=== PATIENT | female | born 1955 | race Caucasian/White ===

== ENCOUNTER 2016-05-30 07:34 | Inpatient (IN) | payer BC, MEDICARE ==
[~2016-05-30] VITALS: Ht 160 cm; Wt 60.9 kg
[~2016-05-30 07:34] MED LIST: ALBU2SYR PO; ATEN25TA PO; CLOP75TA27 PO; FAMO20TA5 PO; MELO-156 PO; OMEP20TA63 PO; OXYC10TA PO; PRAM0.255 PO; TIOT18CA IH
[2016-05-30] MEDS ORDERED: methylPREDNISolone SOD SUCC PF 125 MG/2 ML VIAL. IV ONE (07:45)
--- NOTE | 2016-05-30 07:57 | EKG ---
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
--- NOTE | 2016-05-30 08:08 | ED.ADGEN ---
Adult General Chief Complaint Chief Complaint: SHORTNESS OF BREATH HPI HPI Patient is a 61 year old woman, history of COPD, on 2 after 3 L of oxygen nasal cannula baseline, CAD, hypertension, who presents to the emergency department via EMS with her complaint of shortness of breath that began around 6 this morning. Patient had been complaining of symptoms of a "chest cold" yesterday, but experienced worsening of her shortness of breath this morning, EMS was contacted, was found to be hypoxic at 89% upon arrival of EMS, with 6 L nasal cannula, with increased work of breathing, patient placed on CPAP en route to the ED, upon arrival to the ED, patient transitioned to BiPAP without issue. Patient denies any chest pain, has had cough as stated, productive of yellow sputum, denies any fevers or chills, any weakness emesis or tingling, any injuries or medication changes. No recent travel or surgery, history of DVT or PE, no swelling of the extremities. Review of Systems Review of Systems Constitutional: Denies fever or chills. [] Eyes: Denies change in visual acuity. [] HENT: Denies nasal congestion or sore throat. [] Respiratory: Denies cough, complaining of worsening shortness of breath since about 6:00 this morning. Cardiovascular: Denies chest pain or edema. [] GI: Denies abdominal pain, nausea, vomiting, bloody stools or diarrhea. [] : Denies dysuria. [] Musculoskeletal: Denies back pain or joint pain. [] Integument: Denies rash. [] Neurologic: Denies headache, focal weakness or sensory changes. [] Endocrine: Denies polyuria or polydipsia. [] Lymphatic: Denies swollen glands. [] Psychiatric: Denies depression or anxiety. [] Current Medications Current Medications Current Medications Medications (Trade) Dose Ordered Sig/Lucia Start Time Stop Time Status Last Admin Dose Admin Albuterol/ Ipratropium (Duoneb) 3 ml 1X ONCE 05/30/16 08:30 05/30/16 08:31 DC 05/30/16 08:44 3 ML Isosorbide Mononitrate (Imdur) 60 mg 1X ONCE 05/30/16 08:30 05/30/16 08:31 DC 05/30/16 09:02 60 MG Methylprednisolone Sodium Succinate (Solu-Medrol 125mg Vial) 125 mg 1X ONCE 2/23/17 07:45 05/30/16 07:52 DC 05/30/16 08:31 125 MG Allergies Allergies Allergies Coded Allergies Type Severity Reaction Last Updated Verified bupropion Allergy Intermediate hives 05/30/16 Yes Physical Exam Physical Exam Constitutional: Well developed, well nourished, moderate respiratory distress, ill in appearance. [] HENT: Normocephalic, atraumatic, bilateral external ears normal, oropharynx moist, no oral exudates, nose normal. [] Eyes: PERRLA, EOMI, conjunctiva normal, no discharge. [] Neck: Normal range of motion, no tenderness, supple, no stridor. [] Cardiovascular: Tachycardic, S1, S2, no rubs or gallops. [] Lungs & Thorax: Patient with diminished breath sounds at bases bilaterally, mild scattered wheezing, moderate respiratory distress, and transitioned to BiPAP. Abdomen: Bowel sounds normal, soft, no tenderness, no rebound, rigidity, no guarding, no masses, no pulsatile masses. [] Skin: Warm, dry, no erythema, no rash. [] Back: No tenderness, no CVA tenderness. [] Extremities: No tenderness, no cyanosis, no clubbing, ROM intact, no edema. Negative Homans sign. [] Neurologic: Alert and oriented X 3, normal motor function, normal sensory function, no focal deficits noted. [] Psychologic: Affect normal, judgement normal, mood normal. [] Current Patient Data Vital Signs Vital Signs Date Time Temp Pulse Resp B/P Pulse Ox O2 Delivery O2 Flow Rate FiO2 05/30/16 09:02 126 110/61 05/30/16 08:45 93 BiPAP/CPAP 05/30/16 08:30 21 05/30/16 07:40 96.8 96.8 Lab Values Laboratory Tests Test 05/30/16 07:45 05/30/16 08:19 White Blood Count 15.2x10^3/uL (4.0-11.0) H Red Blood Count 4.37x10^6/uL (3.50-5.40) Hemoglobin 11.7g/dL (12.0-15.5) L Hematocrit 37.1% (36.0-47.0) Mean Corpuscular Volume 85fL (79-100) Mean Corpuscular Hemoglobin 27pg (25-35) Mean Corpuscular Hemoglobin Concent 32g/dL (31-37) Red Cell Distribution Width 17.6% (11.5-14.5) H Platelet Count 371x10^3/uL (140-400) Neutrophils (%) (Auto) 87% (31-73) H Lymphocytes (%) (Auto) 10% (24-48) L Monocytes (%) (Auto) 3% (0-9) Eosinophils (%) (Auto) 0% (0-3) Basophils (%) (Auto) 0% (0-3) Neutrophils # (Auto) 13.1x10^3uL (1.8-7.7) H Lymphocytes # (Auto) 1.5x10^3/uL (1.0-4.8) Monocytes # (Auto) 0.5x10^3/uL (0.0-1.1) Eosinophils # (Auto) 0.0x10^3/uL (0.0-0.7) Basophils # (Auto) 0.0x10^3/uL (0.0-0.2) Platelet Estimate Pending Sodium Level 146mmol/L (136-145) H Potassium Level 4.6mmol/L (3.5-5.1) Chloride Level 104mmol/L (98-107) Carbon Dioxide Level 39mmol/L (21-32) H Anion Gap 3 (6-14) L Blood Urea Nitrogen 23mg/dL (7-20) H Creatinine 0.7mg/dL (0.6-1.0) Estimated GFR (Cockcroft-Gault) 85.4 BUN/Creatinine Ratio 33 (6-20) H Glucose Level 140mg/dL (70-99) H Lactic Acid Level 1.0mmol/L (0.4-2.0) Calcium Level 9.3mg/dL (8.5-10.1) Total Bilirubin 0.2mg/dL (0.2-1.0) Aspartate Amino Transferase (AST) 63U/L (15-37) H Alanine Aminotransferase (ALT) 74U/L (14-59) H Alkaline Phosphatase 74U/L (46-116) Troponin I Quantitative 0.097ng/mL (0.000-0.055) MS-Qef-G-Type Natriuretic Peptide 146pg/mL (0-124) H Total Protein 6.3g/dL (6.4-8.2) L Albumin 3.3g/dL (3.4-5.0) L Albumin/Globulin Ratio 1.1 (1.0-1.7) O2 Saturation 86% (92-99) L Arterial Blood pH 7.23 (7.35-7.45) L Arterial Blood pCO2 at Patient Temp 85mmHg (35-46) *H Arterial Blood pO2 at Patient Temp 57mmHg (65-108) L Arterial Blood HCO3 35mmol/L (21-28) H Arterial Blood Base Excess 5mmol/L (-3-3) H FiO2 30 Laboratory Tests 05/30/16 07:45 Laboratory Tests 05/30/16 07:45 EKG EKG EC: Sinus tachycardia, heart rate 137 bpm, QTC of 433, QRS of 76, patient with significant baseline artifact, after multiple attempts cocaine hCG , secondary to respiratory motion, limiting evaluation, however it is an abnormal ECG but no evidence of ST elevations or depressions consistent with an STEMI-type pattern identified. As interpreted by me. [] Radiology/Procedures Radiology/Procedures [facility] [address] [place], [place] [id number] IMAGING REPORT Signed PATIENT: SRIKANTH CURIEL ACCOUNT: [id number] : 1955 LOCATION: ER AGE: 61 SEX: F EXAM STATUS: REG ER ORD. PHYSICIAN: JUVENAL ANNE DO REASON: SOA/hypoxia PROCEDURE: PORTABLE CHEST 1V EXAM: Chest one view. HISTORY: Shortness of breath, hypoxia. COMPARISON: None. FINDINGS: A frontal view of the chest is obtained. Hyperinflation is consistent with chronic obstructive pulmonary disease. There are mild airspace opacities in the left greater than right bases. Blunting of the costophrenic angles indicate scarring or small pleural effusions. There is no pneumothorax. The heart is not enlarged. A coronary stent is noted. IMPRESSION: 1. Chronic obstructive pulmonary disease with superimposed mild bibasilar atypical pneumonia versus mild pulmonary edema. DICTATED and SIGNED BY: ANIKET BAUMANN MD DATE: 05/30/16 0933 CC: JUVENAL ANNE DO; UNKNOWN PCP NAME ~ Course & Med Decision Making Course & Med Decision Making Pertinent Labs and Imaging studies reviewed. (See chart for details) Patient transitioned to BiPAP upon arrival to the emergency department, initial settings of 22/6 at 30% FiO2, backup rate of 20. Tolerating the settings while in the emergency department, oxygen saturation is in the upper 90s, work of breathing is slowly improving. Patient is able to answer all questions appropriately, patient's is now bedside and confirms that her symptoms began around 6:00 in the morning. He states the patient was started on a Z-Tyree yesterday, is receive 1 dose medication, after she began experiencing some yellow sputum with her cough that began over the last several days. Patient afebrile emergency department, denying fevers at home as stated. Chest x-ray reveals mild bibasilar infiltrates versus mild pulmonary edema, patient with leukocytosis of 15.2. Patient initiated on community-acquired and erratic coverage, blood cultures are pending, clinically patient is significantly improved, states she is feeling much better, however initial blood gas reveals persistent acidosis with a pH of 7.23, PCO2 84, O2 of 56, and bicarbonate of 34 with a base excess of 4. Patient remains tachycardic, although it is significantly improved, heart rate of 110s to 1 teens, blood pressure low 100s over 50s and 60s. Patient was noted to have a mildly elevated troponin, which I believe is due to patient's hypoxia and demand, will follow serial enzymes.BiPAP settings adjusted, oxygen concentration increased. I did discuss findings as above with Dr. Valles of pulmonary critical care, who requested the patient be admitted to the ICU for close monitoring, patient is also receiving duo nebs and steroids. Findings as above discussed with Dr. Gardiner of internal medicine, patient accepted to his service as a full admission to the ICU, consultation to pulmonary medical care and cardiology, with bridge orders entered per his request. Patient remained clinically improved, tolerating BiPAP without issue, at time of transfer to the ICU. Dragon Disclaimer Dragon Disclaimer This electronic medical record was generated, in whole or in part, using a voice recognition dictation system. Critical Care Time Critical care time was 20 minutes exclusive of procedures. Departure Impression: Primary Impression: Respiratory failure Disposition: ADMITTED INPATIENT Admitting Physician: Óscar Gardiner Condition: IMPROVED Problem Qualifiers Primary Impression: Respiratory failure Chronicity: acute on chronic Respiratory failure complication: hypoxia and hypercapnia Qualified Code: J96.21 - Acute and chronic respiratory failure with hypoxia JUVENAL ANNE DO May 30, 2016 08:08
[2016-05-30 08:22] LABS: CALCIUM 9.3 mg/dL (8.5-10.1); CREATININE 0.7 mg/dL (0.6-1.0); GFR 85.4; POTASSIUM 4.6 mmol/L (3.5-5.1)
[2016-05-30] MEDS ORDERED: ISOSORBIDE MONONITRATE ER 60 MG TAB.ER.24H PO ONE (08:30)
[2016-05-30] MEDS ORDERED: IPRATRPIUM/ALBUTEROL 0.5/2.5MG 3 ML NEBU. NEB ONE (08:30)
[2016-05-30 08:35] LABS: ALBUMIN 3.3 g/dL (3.4-5.0); ALBUMIN/GLOBULIN RATIO 1.1 (1.0-1.7); TOTAL BILIRUBIN 0.2 mg/dL (0.2-1.0); TOTAL PROTEIN 6.3 g/dL (6.4-8.2)
[2016-05-30 08:37] LABS: BASO % 0 % (0-3); EOS % 0 % (0-3); HEMATOCRIT 37.1 % (36.0-47.0); HEMOGLOBIN 11.7 g/dL (12.0-15.5); LYMPH # 1.5 x10^3/uL (1.0-4.8); LYMPH % 10 % (24-48); MEAN CORPUSCULAR HEMOGLOBIN 27 pg (25-35); MEAN CORPUSCULAR HGB CONC 32 g/dL (31-37); MEAN CORPUSCULAR VOLUME 85 fL (79-100); MONO % 3 % (0-9); NEUT % 87 % (31-73); PLATELET COUNT 371 x10^3/uL (140-400); RED BLOOD COUNT 4.37 x10^6/uL (3.50-5.40); RED CELL DISTRIBUTION WIDTH 17.6 % (11.5-14.5); WHITE BLOOD COUNT 15.2 x10^3/uL (4.0-11.0)
[2016-05-30 09:10] LABS: HCO3 ABG 35 mmol/L (21-28); PH ABG 7.23 (7.35-7.45); PO2 ABG 57 mmHg (65-108); SAT O2 ABG 86 % (92-99)
[2016-05-30] MEDS ORDERED: AZITHRMYCN 500MG IVPB FOR OMNI 250 ML IV ONE (09:15)
[2016-05-30] MEDS ORDERED: CEFTRIAXONE 1GM IVPB FOR OMNI 50 ML IV ONE (09:15)
[2016-05-30 09:19] LABS: FIO2 ABG 30; PCO2 ABG 85 mmHg (35-46)
--- NOTE | 2016-05-30 09:37 | RAD ---
EXAM: Chest one view. HISTORY: Shortness of breath, hypoxia. COMPARISON: None. FINDINGS: A frontal view of the chest is obtained. Hyperinflation is consistent with chronic obstructive pulmonary disease. There are mild airspace opacities in the left greater than right bases. Blunting of the costophrenic angles indicate scarring or small pleural effusions. There is no pneumothorax. The heart is not enlarged. A coronary stent is noted. IMPRESSION: 1. Chronic obstructive pulmonary disease with superimposed mild bibasilar atypical pneumonia versus mild pulmonary edema.
[2016-05-30] MEDS: IV NORMAL SALINE 1000ML BAG 1,000 ML IV SCH ×2 (09:48→19:48)
[2016-05-30] MEDS ORDERED: ACETAMINOPHEN 325 MG TABLET. PO PRN (10:00)
[2016-05-30] MEDS ORDERED: ONDANSETRON PF 4 MG/2 ML VIAL. IV PRN (10:00)
--- NOTE | 2016-05-30 10:58 | PDOC ---
Provider Note Provider Note dictated PRERNA CALHOUN MD May 30, 2016 10:58
[2016-05-30 11:51] LABS: OBC FLU VALID
--- NOTE | 2016-05-30 11:59 | CONS ---
DATE OF CONSULTATION: ATTENDING PHYSICIAN: Dr. Gardiner. REASON FOR CONSULTATION: Respiratory failure. HISTORY OF PRESENT ILLNESS: The patient is a 61-year-old female with history of COPD, suspect severe. She has chronic respiratory failure and she is on home oxygen between 2-3 liters. She said she had flu-like symptoms about a week ago and had a chest cold. She said she slept last week. She was brought into the hospital with increasing shortness of breath. She has a persistent mild cough. She was treated as an outpatient with Z-DIANE. In the ER, she was noted to have a saturation of 89% on arrival and having increased work of breathing and was tachycardic. She was placed on CPAP en route and was placed on BiPAP in the ER, she uses Trilogy ventilator at night time. I have reviewed the patient's chest x-ray. There appears to be faint interstitial bibasilar infiltrates. There may be some mild interstitial infiltrates in the right lung as well. The patient is tolerating the BiPAP well so far. Her initial ABG showed a pH of 7.23, pCO2 of 85 and a pO2 of 57 on 35% FiO2. No history of deep venous thrombosis or pulmonary embolism. PAST MEDICAL HISTORY: History of suspected severe COPD, history of chronic respiratory failure on home Trilogy at night and 2-3 liters during the day. PAST SURGICAL HISTORY: No recent surgery. ALLERGIES: ____. MEDICATIONS: Reviewed, as listed in the MRAD including antibiotics, azithromycin, Rocephin and DuoNeb. REVIEW OF SYSTEMS: Twelve-point system obtained. Pertinent positives discussed in my history of present illness, otherwise noncontributory. All systems that were negative were reviewed as well. SOCIAL HISTORY: Smoker for 45 years and has not completely quit cigarettes. FAMILY HISTORY: Noncontributory. PHYSICAL EXAMINATION: VITAL SIGNS: Blood pressure 118/61, afebrile, pulse ox 97% on current FiO2. HEENT: Sclerae nonicteric. NECK: Supple. LUNGS: With poor air entry bilaterally. No wheezing. CARDIOVASCULAR: Regular rate and rhythm. ABDOMEN: Soft. EXTREMITIES: No pitting edema. LABORATORY DATA: Reviewed. ABGs as discussed in my history of present illness. BUN 23, creatinine 0.7. Troponin 0.097. Albumin 3.3. White cell count 15.2, hemoglobin 11.7, platelets are 371. IMPRESSION: 1. Jekvm-dp-gmipiri hypercapnic and hypoxic respiratory failure secondary to acute exacerbation of chronic obstructive pulmonary disease and bibasilar pneumonia. 2. Abnormal chest x-ray with bibasilar interstitial infiltrates. Clinically, I suspect pneumonia and less likely congestive heart failure. Continue with present empiric antibiotics. Her proBNP was only 146, will benefit from a noncontrast CT chest. 3. Underlying severe chronic obstructive pulmonary disease, which is oxygen dependent and uses Trilogy ventilator at nighttime. 4. Ongoing tobacco consumption. RECOMMENDATIONS: 1. We will continue with present BiPAP and follow ABGs to make sure respiratory acidosis is resolved. 2. She can use Trilogy ventilator at nighttime. 3. Continue with DuoNeb. 4. Continue with IV Solu-Medrol. 5. Continue with present empiric antibiotics. 6. Noncontrast CT chest to better assess for lung infiltrates. 7. Deep venous thrombosis prophylaxis. 8. Stress ulcer prophylaxis. 9. Discussed with ER physician, RN and RT. We will follow along with you. Critical care time 39 minutes. PRERNA CALHOUN MD DR: MINGO/sarbjit JOB#: [id number] / [id number] TONIA
[2016-05-30] MEDS ORDERED: IPRATRPIUM/ALBUTEROL 0.5/2.5MG 3 ML NEBU. NEB SCH (12:00)
--- NOTE | 2016-05-30 12:10 | EKG ---
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
--- NOTE | 2016-05-30 12:23 | PDOC2 ---
CARDIAC CONSULT DATE OF CONSULT Date of Consult DATE: 05/30/16 TIME: 12:13 REASON FOR CONSULT Reason for Consult: elevated troponin REFERRING PHYSICIAN Referring Physician: Dr. Garcia SOURCE Source: Chart review, Patient HISTORY OF PRESENT ILLNESS HISTORY OF PRESENT ILLNESS This is a 61 yo female who presented with complaints of shortness of breath. Patient reports she woke up this morning around 4 am with shortness of breath. Has had nasal congestion and chest congestion with green sputum. H/o COPD with chronic oxygen therapy; has been requiring more oxygen therapy over the last month. Denies any chest pain, palpitations, dizziness, diaphoresis, n/v, or recent illness/fevers. Report compliance with medications. Additional h/o CAD with stents x5 at [facility]. 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 No recent cardiac workup. PAST MEDICAL HISTORY Cardiovascular: CAD ( s/p PCI/stent placement ), HTN, [place], Hyperlipidemia Pulmonary: COPD CENTRAL NERVOUS SYSTEM: CVA GI: Other (Barretts esophagus ) Heme/Onc: No pertinent hx Hepatobiliary: No pertinent hx Psych: No pertinent hx Musculoskeletal: Osteoarthritis Rheumatologic: No pertinent hx Infectious disease: No pertinent hx ENT: No pertinent hx Renal/: No pertinent hx Endocrine: No pertinent hx Dermatology: No pertinent hx PAST SURGICAL HISTORY Past Surgical History: Other (see PMH) FAMILY HISTORY Family History: Coronary Artery Disease, Heart Disease SOCIAL HISTORY Smoke: <1 pack per day ALCOHOL: none Drugs: None Lives: with Family CURRENT MEDICATIONS CURRENT MEDICATIONS Current Medications Medications (Trade) Dose Ordered Sig/Lucia Route PRN Reason Start Time Stop Time Status Last Admin Dose Admin Methylprednisolone Sodium Succinate (Solu-Medrol 125mg Vial) 125 mg 1X ONCE IV 05/30/16 07:45 05/30/16 07:52 DC 05/30/16 08:31 Isosorbide Mononitrate (Imdur) 60 mg 1X ONCE PO 05/30/16 08:30 05/30/16 08:31 DC 05/30/16 09:02 Albuterol/ Ipratropium 3 ml 3 ml 1X ONCE NEB 05/30/16 08:30 05/30/16 08:31 DC 05/30/16 08:44 Ceftriaxone Sodium (Rocephin 1gm Ivpb For Omni) 50 ml @ 100 mls/hr 1X ONCE IV 05/30/16 09:15 05/30/16 09:44 DC 05/30/16 10:18 Albuterol/ Ipratropium (Duoneb) 3 ml RTQID NEB 05/30/16 12:00 05/31/16 11:59 05/30/16 10:50 ALLERGIES ALLERGIES: Coded Allergies: bupropion (Verified Allergy, Intermediate, hives, 05/30/16) ROS Review of System 14 point ROS conducted with pertinent positives noted above in HPI PHYSICAL EXAM General: Alert, Oriented X3, Cooperative, mild distress Lungs: Other (diminished throughout, on BiPAP ) Heart: Normal S1, Normal S2, Other (heart tones difficult to appreciate. tele ST ) Abdomen: Soft, No tenderness Extremities: No edema, Normal pulses Skin: No significant lesion Neuro: Normal speech, Sensation intact Psych/Mental Status: Mental status NL, Mood NL MUSCULOSKELETAL: Osteoarthritic changes both hands VITALS VITALS Vital Signs Date Time Temp Pulse Resp B/P Pulse Ox O2 Delivery O2 Flow Rate FiO2 05/30/16 10:42 97 BiPAP/CPAP 05/30/16 10:26 112 20 118/61 05/30/16 07:40 96.8 96.8 LABS Lab: Laboratory Tests Test 05/30/16 07:45 05/30/16 08:19 05/30/16 09:55 05/30/16 11:00 White Blood Count 15.2x10^3/uL (4.0-11.0) Red Blood Count 4.37x10^6/uL (3.50-5.40) Hemoglobin 11.7g/dL (12.0-15.5) Hematocrit 37.1% (36.0-47.0) Mean Corpuscular Volume 85fL (79-100) Mean Corpuscular Hemoglobin 27pg (25-35) Mean Corpuscular Hemoglobin Concent 32g/dL (31-37) Red Cell Distribution Width 17.6% (11.5-14.5) Platelet Count 371x10^3/uL (140-400) Neutrophils (%) (Auto) 87% (31-73) Lymphocytes (%) (Auto) 10% (24-48) Monocytes (%) (Auto) 3% (0-9) Eosinophils (%) (Auto) 0% (0-3) Basophils (%) (Auto) 0% (0-3) Neutrophils # (Auto) 13.1x10^3uL (1.8-7.7) Lymphocytes # (Auto) 1.5x10^3/uL (1.0-4.8) Monocytes # (Auto) 0.5x10^3/uL (0.0-1.1) Eosinophils # (Auto) 0.0x10^3/uL (0.0-0.7) Basophils # (Auto) 0.0x10^3/uL (0.0-0.2) Sodium Level 146mmol/L (136-145) Potassium Level 4.6mmol/L (3.5-5.1) Chloride Level 104mmol/L (98-107) Carbon Dioxide Level 39mmol/L (21-32) Anion Gap 3 (6-14) Blood Urea Nitrogen 23mg/dL (7-20) Creatinine 0.7mg/dL (0.6-1.0) Estimated GFR (Cockcroft-Gault) 85.4 BUN/Creatinine Ratio 33 (6-20) Glucose Level 140mg/dL (70-99) Lactic Acid Level 1.0mmol/L (0.4-2.0) 1.1mmol/L (0.4-2.0) Calcium Level 9.3mg/dL (8.5-10.1) Total Bilirubin 0.2mg/dL (0.2-1.0) Aspartate Amino Transf (AST/SGOT) 63U/L (15-37) Alanine Aminotransferase (ALT/SGPT) 74U/L (14-59) Alkaline Phosphatase 74U/L (46-116) Troponin I Quantitative 0.097ng/mL (0.000-0.055) ZH-Kbo-U-Type Natriuretic Peptide 146pg/mL (0-124) Total Protein 6.3g/dL (6.4-8.2) Albumin 3.3g/dL (3.4-5.0) Albumin/Globulin Ratio 1.1 (1.0-1.7) O2 Saturation 86% (92-99) Arterial Blood pH 7.23 (7.35-7.45) Arterial Blood pCO2 at Patient Temp 85mmHg (35-46) Arterial Blood pO2 at Patient Temp 57mmHg (65-108) Arterial Blood HCO3 35mmol/L (21-28) Arterial Blood Base Excess 5mmol/L (-3-3) FiO2 30 Influenza Type A Antigen Negative (NEGATIVE) Influenza Type B Antigen Negative (NEGATIVE) ASSESSMENT/PLAN ASSESSMENT/PLAN 1. Mild troponin elevation initial trop 0.097; continue with series. likely demand ischemia in the setting of acute infection and tachycardia. ASA. Check lipids obtain echo to r/o WMA 2. Acute respiratory failure with AE COPD and possible pneumonia on BiPAP per pulm 3. CAD remote PCI/stenting at [facility] continue ASA, Plavix, and BB will attempt to obtain cardiac records 4. HTN controlled. 5. HLP check lipids statin therapy if indicated 5. Leukocytosis with possible PNA IV antibiotic therapy initiated Problems: TIFFANY CARPIO APRN May 30, 2016 12:23
[2016-05-30 12:51] LABS: HCO3 ABG 31 mmol/L (21-28); PCO2 ABG 57 mmHg (35-46); PH ABG 7.35 (7.35-7.45); PO2 ABG 66 mmHg (65-108); SAT O2 ABG 93 % (92-99)
[2016-05-30 12:53] LABS: PLT ESTIMATE ADEQUATE (ADEQUATE)
[2016-05-30 12:54] LABS: ANISOCYTOSIS SLIGHT; STOMATOCYTES OCC
[2016-05-30 12:55] LABS: FIO2 ABG 30%
[2016-05-30 16:00] VITALS: BP 168/74
[2016-05-30] MEDS ORDERED: MULT1CAP15 PO (16:02)
[2016-05-30] MEDS ORDERED: ASPI-482 PO (16:02)
[2016-05-30] MEDS ORDERED: FLUT1DIS3 IH (16:02)
[2016-05-30] MEDS ORDERED: FOLI1TAB16 PO (16:02)
[2016-05-30] MEDS ORDERED: OMEG300C PO (16:02)
[2016-05-30] MEDS ORDERED: LACT1CAP8 PO (16:02)
[2016-05-30] MEDS ORDERED: CRESTOR40 MG PO (16:02)
[2016-05-30] MEDS ORDERED: CALC500T50 PO (16:02)
[2016-05-30] MEDS ORDERED: ISOS20TA2 PO (16:02)
[2016-05-30] MEDS ORDERED: MIRA25TA PO (16:02)
--- NOTE | 2016-05-30 16:11 | CARD ---
APPROVED REPORT EXAM: Two-dimensional and M-mode echocardiogram with Doppler and color Doppler. Other Information Quality : Technically Limited Rhythm : NSRTechnically limited study due to COPD. INDICATION Elevated troponin level 2D DIMENSIONS IVSd0.8 (0.7-1.1cm)Aortic Root(2D)2.8 (2.0-3.7cm) LVDd3.3 (3.9-5.9cm)LVOT Diameter2.2 (1.8-2.4cm) PWd0.8 (0.7-1.1cm)LVDs2.0 (2.5-4.0cm) SV31.7 mlLVEF(%)45.7 (>50%) Aortic Valve AoV Peak Filiberto.106.9cm/sAoV VTI16.1cm AO Peak GR.4.6mmHgLVOT VTI 11.26cm AO Mean GR.3mmHgAVA (VTI)1.80cm2 Mitral Valve MV E Qngbxdyv28.3cm/sMV E Peak Gr.0mmHg MV DECEL [id number] A Wghevtwu31.8cm/s MV E Mean Gr.1mmHgMV UTD20fu E/A Ratio0.8 Tricuspid Valve TR P. [id number]/sRAP [id number] TR Peak Gr.35afLjZLRC30unPf LEFT VENTRICLE The left ventricle is normal size. There is normal left ventricular wall thickness. Left ventricle sy stolic function is low normal. The Ejection Fraction is 45-50%. Proximal inferior septal hypokinesis, otherwise, mild global hypokinesis. Tissue Doppler imaging reveals mild left ventricular diastolic d ysfunction. RIGHT VENTRICLE The right ventricle is normal size. The right ventricular systolic function is normal. ATRIA The left atrium size is normal. The right atrium size is normal. The interatrial septum is intact wit h no evidence for an atrial septal defect or patent foramen ovale as noted on 2-D or Doppler imaging. AORTIC VALVE The aortic valve is normal in structure and function. The aortic valve is trileaflet. Doppler and Col or Flow revealed no significant aortic regurgitation. There is no significant aortic valvular stenosi s. MITRAL VALVE The mitral valve is normal in structure and function. There is no mitral valve stenosis. Doppler and Color Flow revealed no mitral valve regurgitation noted. TRICUSPID VALVE The tricuspid valve is not well visualized. Doppler and Color Flow revealed trace tricuspid regurgita tion. The PA pressure was estimated at 22 mmHg. There is no tricuspid valve stenosis. PULMONIC VALVE The pulmonic valve is not well visualized. Doppler and Color Flow revealed no pulmonic valvular regur gitation. There is no pulmonic valvular stenosis. GREAT VESSELS The aortic root is normal in size. Pulmonary veins not recorded. The IVC is normal in size and collap ses >50% with inspiration. PERICARDIAL EFFUSION There is no evidence of significant pericardial effusion. Critical Notification Critical Value: No <Conclusion> Left ventricle systolic function is low normal. The Ejection Fraction is 45-50%. Proximal inferior septal hypokinesis, otherwise, mild global hypokinesis. No significant valvular disease.
--- NOTE | 2016-05-30 16:22 | PDOC1 ---
History and Physical Past Medical History Cardiovascular: CAD ( s/p PCI/stent placement ), HTN, [place], Hyperlipidemia Pulmonary: COPD CENTRAL NERVOUS SYSTEM: CVA GI: Other (Barretts esophagus ) Heme/Onc: No pertinent hx Hepatobiliary: No pertinent hx Psych: No pertinent hx Rheumatologic: No pertinent hx Infectious disease: No pertinent hx ENT: No pertinent hx Renal/: No pertinent hx Endocrine: No pertinent hx Dermatology: No pertinent hx Past Surgical History Past Surgical History: Other (see PMH) Family History Family History: Coronary Artery Disease, Heart Disease Social History Smoke: <1 pack per day ALCOHOL: none Drugs: None Current Problem List Problem List Problems Medical Problems: (1) Respiratory failure Status: Acute Current Medications Current Medications Current Medications Medications (Trade) Dose Ordered Sig/Lucia Start Time Stop Time Status Last Admin Dose Admin Acetaminophen (Tylenol) 650 mg PRN Q4HRS PRN 05/30/16 10:00 05/31/16 09:59 Albuterol/ Ipratropium (Duoneb) 3 ml RTQID 05/30/16 12:00 05/31/16 11:59 05/30/16 10:50 3 ML Albuterol/ Ipratropium 3 ml 3 ml 1X ONCE 05/30/16 08:30 05/30/16 08:31 DC 05/30/16 08:44 3 ML Aspirin (Ecotrin) 81 mg [id number] 05/30/16 14:15 Atenolol (Tenormin) 25 mg DAILY 05/30/16 15:00 Azithromycin 250 ml @ 250 mls/hr 1X ONCE 05/30/16 09:15 05/30/16 10:14 DC Azithromycin 500 mg/Sodium Chloride 250 ml @ 250 mls/hr Q24H 05/31/16 09:00 06/02/16 08:59 Ceftriaxone Sodium 1 gm/ Sodium Chloride 100 ml @ 200 mls/hr Q24H 05/31/16 09:00 Ceftriaxone Sodium (Rocephin 1gm Ivpb For Omni) 50 ml @ 100 mls/hr 1X ONCE 05/30/16 09:15 05/30/16 09:44 DC 05/30/16 10:18 100 MLS/HR Clopidogrel Bisulfate (Plavix) 75 mg DAILY 05/30/16 14:30 Enoxaparin Sodium (Lovenox 40mg Syringe) 40 mg Q24H 05/30/16 11:00 Isosorbide Mononitrate (Imdur) 60 mg 1X ONCE 05/30/16 08:30 05/30/16 08:31 DC 05/30/16 09:02 60 MG Methylprednisolone Sodium Succinate (Solu-Medrol 40mg Vial) 40 mg Q8HRS 05/30/16 14:00 Methylprednisolone Sodium Succinate (Solu-Medrol 125mg Vial) 125 mg 1X ONCE 05/30/16 07:45 05/30/16 07:52 DC 05/30/16 08:31 125 MG Ondansetron HCl 4 mg 4 mg PRN Q8HRS PRN 05/30/16 10:00 05/31/16 09:59 Sodium Chloride (Iv Sodium Chloride 0.9% 1000ml Bag) 1,000 ml @ 100 mls/hr Q10H 05/30/16 09:48 05/31/16 09:47 Allergies Allergies Allergies Coded Allergies Type Severity Reaction Last Updated Verified bupropion Allergy Intermediate hives 05/30/16 Yes ROS Review of System CONSTITUTIONAL: No fever or chills EYES: No recent changes SKIN: No rash or itching CARDIOVASCULAR: No chest pain, syncope, palpitations, or edema RESPIRATORY: SOB GASTROINTESTINAL: No nausea, vomiting or abdominal pain NEUROLOGICAL: No headaches or weakness ENDOCRINE: No cold or heat intolerance GENITOURINARY: No urgency or frequency of urination MUSCULOSKELETAL: No back pain or joint pain LYMPHATICS: No enlarged lymph nodes PSYCHIATRIC: No anxiety or depression Physical Exam Physical Exam GEN.: No apparent distress. Alert and oriented. HEENT: Head is normocephalic, atraumatic NECK: Supple. no jvd LUNGS: decreased BS bilateral on Bipap HEART: RRR, S1, S2 present. Peripheral pulses intact ABDOMEN: Soft, nontender. Positive bowel sounds. EXTREMITIES: Without any cyanosis. NEUROLOGIC: Normal speech, normal tone PSYCHIATRIC: Normal affect, normal mood. SKIN: No visible skin changes Vitals Vitals Vital Signs Date Time Temp Pulse Resp B/P Pulse Ox O2 Delivery O2 Flow Rate FiO2 05/30/16 14:52 95 BiPAP/CPAP 05/30/16 10:26 112 20 118/61 05/30/16 07:40 96.8 96.8 Labs Labs Laboratory Tests Test 05/30/16 07:45 05/30/16 08:19 05/30/16 09:55 05/30/16 11:00 White Blood Count 15.2x10^3/uL (4.0-11.0) Red Blood Count 4.37x10^6/uL (3.50-5.40) Hemoglobin 11.7g/dL (12.0-15.5) Hematocrit 37.1% (36.0-47.0) Mean Corpuscular Volume 85fL (79-100) Mean Corpuscular Hemoglobin 27pg (25-35) Mean Corpuscular Hemoglobin Concent 32g/dL (31-37) Red Cell Distribution Width 17.6% (11.5-14.5) Platelet Count 371x10^3/uL (140-400) Neutrophils (%) (Auto) 87% (31-73) Lymphocytes (%) (Auto) 10% (24-48) Monocytes (%) (Auto) 3% (0-9) Eosinophils (%) (Auto) 0% (0-3) Basophils (%) (Auto) 0% (0-3) Neutrophils # (Auto) 13.1x10^3uL (1.8-7.7) Lymphocytes # (Auto) 1.5x10^3/uL (1.0-4.8) Monocytes # (Auto) 0.5x10^3/uL (0.0-1.1) Eosinophils # (Auto) 0.0x10^3/uL (0.0-0.7) Basophils # (Auto) 0.0x10^3/uL (0.0-0.2) Segmented Neutrophils % 87% (35-66) Lymphocytes % 9% (24-48) Monocytes % 4% (0-10) Platelet Estimate Adequate (ADEQUATE) Anisocytosis Slight Stomatocytes Occ Sodium Level 146mmol/L (136-145) Potassium Level 4.6mmol/L (3.5-5.1) Chloride Level 104mmol/L (98-107) Carbon Dioxide Level 39mmol/L (21-32) Anion Gap 3 (6-14) Blood Urea Nitrogen 23mg/dL (7-20) Creatinine 0.7mg/dL (0.6-1.0) Estimated GFR (Cockcroft-Gault) 85.4 BUN/Creatinine Ratio 33 (6-20) Glucose Level 140mg/dL (70-99) Lactic Acid Level 1.0mmol/L (0.4-2.0) 1.1mmol/L (0.4-2.0) Calcium Level 9.3mg/dL (8.5-10.1) Total Bilirubin 0.2mg/dL (0.2-1.0) Aspartate Amino Transf (AST/SGOT) 63U/L (15-37) Alanine Aminotransferase (ALT/SGPT) 74U/L (14-59) Alkaline Phosphatase 74U/L (46-116) Troponin I Quantitative 0.097ng/mL (0.000-0.055) IO-Fjf-A-Type Natriuretic Peptide 146pg/mL (0-124) Total Protein 6.3g/dL (6.4-8.2) Albumin 3.3g/dL (3.4-5.0) Albumin/Globulin Ratio 1.1 (1.0-1.7) O2 Saturation 86% (92-99) Arterial Blood pH 7.23 (7.35-7.45) Arterial Blood pCO2 at Patient Temp 85mmHg (35-46) Arterial Blood pO2 at Patient Temp 57mmHg (65-108) Arterial Blood HCO3 35mmol/L (21-28) Arterial Blood Base Excess 5mmol/L (-3-3) FiO2 30 Influenza Type A Antigen Negative (NEGATIVE) Influenza Type B Antigen Negative (NEGATIVE) Test 05/30/16 12:15 05/30/16 13:55 O2 Saturation 93% (92-99) Arterial Blood pH 7.35 (7.35-7.45) Arterial Blood pCO2 at Patient Temp 57mmHg (35-46) Arterial Blood pO2 at Patient Temp 66mmHg (65-108) Arterial Blood HCO3 31mmol/L (21-28) Arterial Blood Base Excess 4mmol/L (-3-3) FiO2 30% Troponin I Quantitative 0.717ng/mL (0.000-0.055) Laboratory Tests Test 05/30/16 07:45 05/30/16 08:19 05/30/16 09:55 05/30/16 11:00 White Blood Count 15.2x10^3/uL (4.0-11.0) Red Blood Count 4.37x10^6/uL (3.50-5.40) Hemoglobin 11.7g/dL (12.0-15.5) Hematocrit 37.1% (36.0-47.0) Mean Corpuscular Volume 85fL (79-100) Mean Corpuscular Hemoglobin 27pg (25-35) Mean Corpuscular Hemoglobin Concent 32g/dL (31-37) Red Cell Distribution Width 17.6% (11.5-14.5) Platelet Count 371x10^3/uL (140-400) Neutrophils (%) (Auto) 87% (31-73) Lymphocytes (%) (Auto) 10% (24-48) Monocytes (%) (Auto) 3% (0-9) Eosinophils (%) (Auto) 0% (0-3) Basophils (%) (Auto) 0% (0-3) Neutrophils # (Auto) 13.1x10^3uL (1.8-7.7) Lymphocytes # (Auto) 1.5x10^3/uL (1.0-4.8) Monocytes # (Auto) 0.5x10^3/uL (0.0-1.1) Eosinophils # (Auto) 0.0x10^3/uL (0.0-0.7) Basophils # (Auto) 0.0x10^3/uL (0.0-0.2) Segmented Neutrophils % 87% (35-66) Lymphocytes % 9% (24-48) Monocytes % 4% (0-10) Platelet Estimate Adequate (ADEQUATE) Anisocytosis Slight Stomatocytes Occ Sodium Level 146mmol/L (136-145) Potassium Level 4.6mmol/L (3.5-5.1) Chloride Level 104mmol/L (98-107) Carbon Dioxide Level 39mmol/L (21-32) Anion Gap 3 (6-14) Blood Urea Nitrogen 23mg/dL (7-20) Creatinine 0.7mg/dL (0.6-1.0) Estimated GFR (Cockcroft-Gault) 85.4 BUN/Creatinine Ratio 33 (6-20) Glucose Level 140mg/dL (70-99) Lactic Acid Level 1.0mmol/L (0.4-2.0) 1.1mmol/L (0.4-2.0) Calcium Level 9.3mg/dL (8.5-10.1) Total Bilirubin 0.2mg/dL (0.2-1.0) Aspartate Amino Transf (AST/SGOT) 63U/L (15-37) Alanine Aminotransferase (ALT/SGPT) 74U/L (14-59) Alkaline Phosphatase 74U/L (46-116) Troponin I Quantitative 0.097ng/mL (0.000-0.055) EI-Fgt-Y-Type Natriuretic Peptide 146pg/mL (0-124) Total Protein 6.3g/dL (6.4-8.2) Albumin 3.3g/dL (3.4-5.0) Albumin/Globulin Ratio 1.1 (1.0-1.7) O2 Saturation 86% (92-99) Arterial Blood pH 7.23 (7.35-7.45) Arterial Blood pCO2 at Patient Temp 85mmHg (35-46) Arterial Blood pO2 at Patient Temp 57mmHg (65-108) Arterial Blood HCO3 35mmol/L (21-28) Arterial Blood Base Excess 5mmol/L (-3-3) FiO2 30 Influenza Type A Antigen Negative (NEGATIVE) Influenza Type B Antigen Negative (NEGATIVE) Test 05/30/16 12:15 05/30/16 13:55 O2 Saturation 93% (92-99) Arterial Blood pH 7.35 (7.35-7.45) Arterial Blood pCO2 at Patient Temp 57mmHg (35-46) Arterial Blood pO2 at Patient Temp 66mmHg (65-108) Arterial Blood HCO3 31mmol/L (21-28) Arterial Blood Base Excess 4mmol/L (-3-3) FiO2 30% Troponin I Quantitative 0.717ng/mL (0.000-0.055) VTE Prophylaxis Ordered VTE Prophylaxis Devices: No VTE Pharmacological Prophylaxi: No JENNIFER DO MD May 30, 2016 16:22
[2016-05-30] MEDS: CLOPIDOGREL BISULFATE 75 MG TABLET PO SCH (18:15)
[2016-05-30] MEDS: OXYCODONE IR 5 MG TABLET. PO PRN (18:16)
[2016-05-30] MEDS: ATENOLOL 25 MG TABLET PO SCH (18:16)
[2016-05-30] MEDS: ENOXAPARIN 40 MG/0.4 ML DISP.SYRIN. SQ SCH (18:17)
[2016-05-30] MEDS: ASPIRIN ENTERIC COATED 81 MG TABLET.DR. PO SCH (18:17)
[2016-05-30] MEDS: methylPREDNISolone SOD SUCC PF 40 MG/ML VIAL. IV SCH ×2 (18:17→22:28)
[2016-05-30] MEDS: IPRATRPIUM/ALBUTEROL 0.5/2.5MG 3 ML NEBU. NEB SCH (19:07)
[2016-05-30] MEDS ORDERED: KETOROLAC TROMETHAMINE 30 MG/ML SYRINGE. IV PRN (19:15)
--- NOTE | 2016-05-30 19:41 | HP ---
ADMIT DATE: 05/30/2016 CHIEF COMPLAINT: Shortness of breath. HISTORY OF PRESENT ILLNESS: A 61-year-old female with prior history of COPD and chronic respiratory failure, coronary artery disease, hypertension, presented to the ER with complaints of acute shortness of breath started early this morning. At the time of arrival, the patient was hypoxic with saturations around 89%. She was requiring BiPAP. Her initial ABG showed acute hypercapnic respiratory failure. She was placed on BiPAP and her symptoms slowly improved. At the time of my examination, the patient is feeling better. Denies any complaints such as cough, expectoration, or fevers. PAST MEDICAL HISTORY, REVIEW OF SYSTEMS, AND PHYSICAL EXAMINATION: Please see my electronic H and P. LABORATORY DATA: Influenza A and B negative. CBC: WBC 15.2, hemoglobin 11.2, MCV is 85, platelets is 371. Chemistry: Sodium 146, potassium 4.6, carbon dioxide 13, anion gap 3, BUN is 23, creatinine 0.7, glucose 140. Blood gas initial saturation is 86%, pH 7.23, pCO2 85, pO2 57, bicarbonate is 35 and base excess 5, FiO2 30%. IMAGING STUDIES: Chest x-ray showed chronic obstructive pulmonary disease with superimposed mild bibasilar atypical pneumonia versus mild pulmonary edema. ASSESSMENT AND PLAN: 1. Acute hypercapnic hypoxic respiratory failure present on admission. 2. Chronic respiratory failure. 3. Chronic obstructive pulmonary disease. 4. Prior history of coronary artery disease with mild elevation of troponins. 5. Hypertension. 6. Hyperlipidemia. 7. Leukocytosis. PLAN: 1. She has been placed in ICU and currently on BiPAP. ABG has been improving. 2. P.r.n. DuoNebs. 3. Continue IV Solu-Medrol. 4. Currently, she was on Rocephin and Zithromax. Pulmonology has been ordered a CT of the chest in a.m. 5. Monitor troponins. Cardiology has been consulted. 6. Echocardiogram ordered. 7. Nicotine patch p.r.n. 8. Prognosis is guarded. JENNIFER DO MD DR: CHEY/sarbjit JOB#: [id number] / [id number] MTDD
[2016-05-30] MEDS: BUDESONIDE 0.5 MG/2 ML NEBU NEB SCH (20:00)
[2016-05-30] MEDS: ATORVASTATIN CALCIUM 40 MG TABLET. PO SCH (20:32)
[2016-05-30] MEDS: FAMOTIDINE 20 MG TABLET. PO SCH (20:32)
[2016-05-30 21:00] VITALS: BP 104/61
[2016-05-30 22:00] VITALS: BP 111/70
[2016-05-30 23:00] VITALS: BP 122/68
[2016-05-31] VITALS (23 sets, daily range): BP systolic 83–141; BP diastolic 39–77
--- NOTE | 2016-05-31 00:42 | ACF ---
Admission Forms Criteria RESPIRATORY FAILURE [facility] Clinical Indications for Admission to Inpatient Care (Place 'X' for any and all applicable criteria): Hospital admission is needed for appropriate care of the patient because of acute respiratory failure or insufficiency as indicated by ANY ONE of the following(1)(2)(3)(4)(5)(6)(7)(8): [X]I. Mechanical ventilation needed (acute invasive or noninvasive) [ ]II. Severe ventilation deficit as indicated by ANY ONE of the following (9) [ ]a) Respiratory acidosis (pH less than 7.32 and partial pressure of carbon dioxide greater than 40 mm Hg (5.3 kPa)) [ ]b) Partial pressure of carbon dioxide greater than 44 mm Hg (5.9 kPa ) (new) [ ]c) Airflow measurements less than 25% of predicted (eg, peak expiratory flow rate less than 100 L/minute) [ ]d) Forced vital capacity less than 15 mL/kg of ideal body weight, or 50% decrease in vital capacity from baseline [ ]III. Noncardiac pulmonary edema not resolving with rapid emergency treatment (8) [ ]IV. Severe respiratory distress as indicated by ANY ONE of the following: [ ]a) Severe tachypnea (respiratory rate greater than 30, greater than 45 for 6-month-old, greater than 60 for ) [ ]b) Severe hypoxemia (partial pressure of oxygen less than 50 mm Hg ( 6.7 kPa) on greater than 50% oxygen or partial pressure of oxygen to FIO2 ratio less than 200) [ ]c) Mental status deterioration from respiratory disease [ ]V. Airway obstruction or inadequate protection [A](10)(11) The original [employer] content created by [employer] has been revised. The portions of the content which have been revised are identified through the use of italic text or in bold, and [employer] has neither reviewed nor approved the modified material. All other unmodified content is copyright [employer] Please see references footnoted in the original [employer] edition 2016 Admission Criteria Met?: Yes LAZARO GUTIERREZ May 31, 2016 00:42
[2016-05-31] MEDS: OXYCODONE IR 5 MG TABLET. PO PRN (04:36)
[2016-05-31 05:31] LABS: BASO % 0 % (0-3); EOS % 0 % (0-3); HEMATOCRIT 34.6 % (36.0-47.0); HEMOGLOBIN 10.8 g/dL (12.0-15.5); LYMPH # 0.4 x10^3/uL (1.0-4.8); LYMPH % 4 % (24-48); MEAN CORPUSCULAR HEMOGLOBIN 27 pg (25-35); MEAN CORPUSCULAR HGB CONC 31 g/dL (31-37); MEAN CORPUSCULAR VOLUME 86 fL (79-100); MONO % 4 % (0-9); NEUT % 93 % (31-73); PLATELET COUNT 307 x10^3/uL (140-400); RED BLOOD COUNT 4.04 x10^6/uL (3.50-5.40); RED CELL DISTRIBUTION WIDTH 17.4 % (11.5-14.5); WHITE BLOOD COUNT 9.8 x10^3/uL (4.0-11.0)
[2016-05-31] MEDS: IV NORMAL SALINE 1000ML BAG 1,000 ML IV SCH (05:48)
[2016-05-31] MEDS: methylPREDNISolone SOD SUCC PF 40 MG/ML VIAL. IV SCH ×3 (05:50→20:42)
[2016-05-31 05:55] LABS: CALCIUM 9.5 mg/dL (8.5-10.1); CREATININE 0.5 mg/dL (0.6-1.0); GFR 125.9; POTASSIUM 4.5 mmol/L (3.5-5.1)
[2016-05-31 06:03] LABS: CHOLESTEROL/HDL RATIO 2.3
[2016-05-31] MEDS: IPRATRPIUM/ALBUTEROL 0.5/2.5MG 3 ML NEBU. NEB SCH ×5 (07:19→23:34)
[2016-05-31] MEDS: BUDESONIDE 0.5 MG/2 ML NEBU NEB SCH ×2 (07:19→19:24)
[2016-05-31 07:24] LABS: HCO3 ABG 38 mmol/L (21-28); PH ABG 7.29 (7.35-7.45); PO2 ABG 70 mmHg (65-108); SAT O2 ABG 92 % (92-99)
[2016-05-31 08:24] LABS: ANISOCYTOSIS PRESENT; PLT ESTIMATE ADEQUATE (ADEQUATE)
[2016-05-31 08:34] LABS: FIO2 ABG 35%; PCO2 ABG 81 mmHg (35-46)
[2016-05-31] MEDS ORDERED: ASPIRIN ENTERIC COATED 81 MG TABLET.DR. PO SCH (09:00)
[2016-05-31] MEDS: MIRABEGRON 25 MG TAB.ER.24H PO SCH (10:28)
[2016-05-31] MEDS: AZITHROMYCIN 500 MG in IV NORMAL SALINE 250ML 250 ML IV SCH (10:30)
--- NOTE | 2016-05-31 10:31 | PDOC ---
PULMONARY PROGRESS NOTES Subjective Did well off BIPAP yesterday became hypercapnic again today, back on BIPAP, received 10 mg oxycodone this am Vitals Vital Signs Date Time Temp Pulse Resp B/P Pulse Ox O2 Delivery O2 Flow Rate FiO2 05/31/16 09:56 90 BiPAP/CPAP 05/31/16 09:00 96 18 119/66 05/31/16 08:00 97.0 97.0 05/31/16 07:27 10.0 General: Alert, No acute distress Lungs: Other (poor air entry) Cardiovascular: S1 Abdomen: Soft Neuro Exam: Alert Extremities: No Edema Skin: Warm Labs Laboratory Tests Test 05/30/16 07:45 05/30/16 08:19 05/30/16 09:55 05/30/16 11:00 White Blood Count 15.2x10^3/uL (4.0-11.0) Red Blood Count 4.37x10^6/uL (3.50-5.40) Hemoglobin 11.7g/dL (12.0-15.5) Hematocrit 37.1% (36.0-47.0) Mean Corpuscular Volume 85fL (79-100) Mean Corpuscular Hemoglobin 27pg (25-35) Mean Corpuscular Hemoglobin Concent 32g/dL (31-37) Red Cell Distribution Width 17.6% (11.5-14.5) Platelet Count 371x10^3/uL (140-400) Neutrophils (%) (Auto) 87% (31-73) Lymphocytes (%) (Auto) 10% (24-48) Monocytes (%) (Auto) 3% (0-9) Eosinophils (%) (Auto) 0% (0-3) Basophils (%) (Auto) 0% (0-3) Neutrophils # (Auto) 13.1x10^3uL (1.8-7.7) Lymphocytes # (Auto) 1.5x10^3/uL (1.0-4.8) Monocytes # (Auto) 0.5x10^3/uL (0.0-1.1) Eosinophils # (Auto) 0.0x10^3/uL (0.0-0.7) Basophils # (Auto) 0.0x10^3/uL (0.0-0.2) Segmented Neutrophils % 87% (35-66) Lymphocytes % 9% (24-48) Monocytes % 4% (0-10) Platelet Estimate Adequate (ADEQUATE) Anisocytosis Slight Stomatocytes Occ Sodium Level 146mmol/L (136-145) Potassium Level 4.6mmol/L (3.5-5.1) Chloride Level 104mmol/L (98-107) Carbon Dioxide Level 39mmol/L (21-32) Anion Gap 3 (6-14) Blood Urea Nitrogen 23mg/dL (7-20) Creatinine 0.7mg/dL (0.6-1.0) Estimated GFR (Cockcroft-Gault) 85.4 BUN/Creatinine Ratio 33 (6-20) Glucose Level 140mg/dL (70-99) Lactic Acid Level 1.0mmol/L (0.4-2.0) 1.1mmol/L (0.4-2.0) Calcium Level 9.3mg/dL (8.5-10.1) Total Bilirubin 0.2mg/dL (0.2-1.0) Aspartate Amino Transf (AST/SGOT) 63U/L (15-37) Alanine Aminotransferase (ALT/SGPT) 74U/L (14-59) Alkaline Phosphatase 74U/L (46-116) Troponin I Quantitative 0.097ng/mL (0.000-0.055) TT-Tas-W-Type Natriuretic Peptide 146pg/mL (0-124) Total Protein 6.3g/dL (6.4-8.2) Albumin 3.3g/dL (3.4-5.0) Albumin/Globulin Ratio 1.1 (1.0-1.7) O2 Saturation 86% (92-99) Arterial Blood pH 7.23 (7.35-7.45) Arterial Blood pCO2 at Patient Temp 85mmHg (35-46) Arterial Blood pO2 at Patient Temp 57mmHg (65-108) Arterial Blood HCO3 35mmol/L (21-28) Arterial Blood Base Excess 5mmol/L (-3-3) FiO2 30 Nasal Screen MRSA (PCR) Negative (Negative) Influenza Type A Antigen Negative (NEGATIVE) Influenza Type B Antigen Negative (NEGATIVE) Test 05/30/16 12:15 05/30/16 13:55 05/30/16 22:15 05/31/16 05:00 O2 Saturation 93% (92-99) Arterial Blood pH 7.35 (7.35-7.45) Arterial Blood pCO2 at Patient Temp 57mmHg (35-46) Arterial Blood pO2 at Patient Temp 66mmHg (65-108) Arterial Blood HCO3 31mmol/L (21-28) Arterial Blood Base Excess 4mmol/L (-3-3) FiO2 30% Troponin I Quantitative 0.717ng/mL (0.000-0.055) 0.598ng/mL (0.000-0.055) White Blood Count 9.8x10^3/uL (4.0-11.0) Red Blood Count 4.04x10^6/uL (3.50-5.40) Hemoglobin 10.8g/dL (12.0-15.5) Hematocrit 34.6% (36.0-47.0) Mean Corpuscular Volume 86fL (79-100) Mean Corpuscular Hemoglobin 27pg (25-35) Mean Corpuscular Hemoglobin Concent 31g/dL (31-37) Red Cell Distribution Width 17.4% (11.5-14.5) Platelet Count 307x10^3/uL (140-400) Neutrophils (%) (Auto) 93% (31-73) Lymphocytes (%) (Auto) 4% (24-48) Monocytes (%) (Auto) 4% (0-9) Eosinophils (%) (Auto) 0% (0-3) Basophils (%) (Auto) 0% (0-3) Neutrophils # (Auto) 9.1x10^3uL (1.8-7.7) Lymphocytes # (Auto) 0.4x10^3/uL (1.0-4.8) Monocytes # (Auto) 0.3x10^3/uL (0.0-1.1) Eosinophils # (Auto) 0.0x10^3/uL (0.0-0.7) Basophils # (Auto) 0.0x10^3/uL (0.0-0.2) Segmented Neutrophils % 95% (35-66) Band Neutrophils % 3% (0-9) Lymphocytes % 1% (24-48) Monocytes % 1% (0-10) Platelet Estimate Adequate (ADEQUATE) Anisocytosis Present Sodium Level 146mmol/L (136-145) Potassium Level 4.5mmol/L (3.5-5.1) Chloride Level 104mmol/L (98-107) Carbon Dioxide Level 37mmol/L (21-32) Anion Gap 5 (6-14) Blood Urea Nitrogen 19mg/dL (7-20) Creatinine 0.5mg/dL (0.6-1.0) Estimated GFR (Cockcroft-Gault) 125.9 Glucose Level 119mg/dL (70-99) Calcium Level 9.5mg/dL (8.5-10.1) Triglycerides Level 100mg/dL (0-150) Cholesterol Level 149mg/dL (0-200) LDL Cholesterol, Calculated 64mg/dL (0-100) VLDL Cholesterol, Calculated 20mg/dL (0-40) HDL Cholesterol 65mg/dL (40-60) Cholesterol/HDL Ratio 2.3 Test 05/31/16 08:00 O2 Saturation 92% (92-99) Arterial Blood pH 7.29 (7.35-7.45) Arterial Blood pCO2 at Patient Temp 81mmHg (35-46) Arterial Blood pO2 at Patient Temp 70mmHg (65-108) Arterial Blood HCO3 38mmol/L (21-28) Arterial Blood Base Excess 9mmol/L (-3-3) FiO2 35% Laboratory Tests Test 05/30/16 11:00 05/30/16 12:15 05/30/16 13:55 05/30/16 22:15 Nasal Screen MRSA (PCR) Negative (Negative) Influenza Type A Antigen Negative (NEGATIVE) Influenza Type B Antigen Negative (NEGATIVE) O2 Saturation 93% (92-99) Arterial Blood pH 7.35 (7.35-7.45) Arterial Blood pCO2 at Patient Temp 57mmHg (35-46) Arterial Blood pO2 at Patient Temp 66mmHg (65-108) Arterial Blood HCO3 31mmol/L (21-28) Arterial Blood Base Excess 4mmol/L (-3-3) FiO2 30% Troponin I Quantitative 0.717ng/mL (0.000-0.055) 0.598ng/mL (0.000-0.055) Test 05/31/16 05:00 05/31/16 08:00 White Blood Count 9.8x10^3/uL (4.0-11.0) Red Blood Count 4.04x10^6/uL (3.50-5.40) Hemoglobin 10.8g/dL (12.0-15.5) Hematocrit 34.6% (36.0-47.0) Mean Corpuscular Volume 86fL (79-100) Mean Corpuscular Hemoglobin 27pg (25-35) Mean Corpuscular Hemoglobin Concent 31g/dL (31-37) Red Cell Distribution Width 17.4% (11.5-14.5) Platelet Count 307x10^3/uL (140-400) Neutrophils (%) (Auto) 93% (31-73) Lymphocytes (%) (Auto) 4% (24-48) Monocytes (%) (Auto) 4% (0-9) Eosinophils (%) (Auto) 0% (0-3) Basophils (%) (Auto) 0% (0-3) Neutrophils # (Auto) 9.1x10^3uL (1.8-7.7) Lymphocytes # (Auto) 0.4x10^3/uL (1.0-4.8) Monocytes # (Auto) 0.3x10^3/uL (0.0-1.1) Eosinophils # (Auto) 0.0x10^3/uL (0.0-0.7) Basophils # (Auto) 0.0x10^3/uL (0.0-0.2) Segmented Neutrophils % 95% (35-66) Band Neutrophils % 3% (0-9) Lymphocytes % 1% (24-48) Monocytes % 1% (0-10) Platelet Estimate Adequate (ADEQUATE) Anisocytosis Present Sodium Level 146mmol/L (136-145) Potassium Level 4.5mmol/L (3.5-5.1) Chloride Level 104mmol/L (98-107) Carbon Dioxide Level 37mmol/L (21-32) Anion Gap 5 (6-14) Blood Urea Nitrogen 19mg/dL (7-20) Creatinine 0.5mg/dL (0.6-1.0) Estimated GFR (Cockcroft-Gault) 125.9 Glucose Level 119mg/dL (70-99) Calcium Level 9.5mg/dL (8.5-10.1) Triglycerides Level 100mg/dL (0-150) Cholesterol Level 149mg/dL (0-200) LDL Cholesterol, Calculated 64mg/dL (0-100) VLDL Cholesterol, Calculated 20mg/dL (0-40) HDL Cholesterol 65mg/dL (40-60) Cholesterol/HDL Ratio 2.3 O2 Saturation 92% (92-99) Arterial Blood pH 7.29 (7.35-7.45) Arterial Blood pCO2 at Patient Temp 81mmHg (35-46) Arterial Blood pO2 at Patient Temp 70mmHg (65-108) Arterial Blood HCO3 38mmol/L (21-28) Arterial Blood Base Excess 9mmol/L (-3-3) FiO2 35% Medications Active Scripts Medications Dose Route/Sig Days Date Category Calcium (Calcium Carbonate) 500 Mg Tab.chew 500 Mg PO 05/30/16 Reported Multivitamins (Multivitamin) 1 Each Capsule 1 Each PO 05/30/16 Reported Folic Acid 1 Mg Tablet 1 Tab PO DAILY 05/30/16 Reported Myrbetriq (Mirabegron) 25 Mg Tab.er.24h 25 Mg PO DAILY 05/30/16 Reported Isosorbide Mononitrate 20 Mg Tablet 60 Mg PO DAILY 05/30/16 Reported Probiotic (Lactobacillus Combo No.11) 1 Each Cap.sprink 1 Each PO DAILY 05/30/16 Reported Fish Oil ([place]-3 Fatty Acids) 300 Mg Capsule 1,200 Mg PO BID 05/30/16 Reported Crestor (Rosuvastatin Calcium) 40 Mg Tablet 1 Tab PO DAILY 05/30/16 Reported Aspir 81 (Aspirin) 81 Mg Tablet.dr 1 Tab PO DAILY 05/30/16 Reported Advair 250-50 Diskus (Fluticasone/Salmeterol) 1 Each Disk.w.dev 1 Puff IH BID 05/30/16 Reported Plavix (Clopidogrel Bisulfate) 75 Mg Tablet 75 Mg PO DAILY 02/28/16 Reported Atenolol 25 Mg Tablet 25 Mg PO DAILY 02/28/16 Reported Mirapex (Pramipexole Di-Hcl) 0.25 Mg Tablet 0.25 Mg PO 02/28/16 Reported Oxycodone Hcl 10 Mg Tablet 10 Mg PO PRN 02/28/16 Reported Spiriva (Tiotropium Bouse) 18 Mcg Cap.w.dev 2 Inh IH DAILY 02/28/16 Reported Albuterol Sulfate Oral Syrup (Albuterol Sulfate) 2 Mg/5 Ml Syrup 4 Mg PO QID 02/28/16 Reported Meloxicam 7.5 Mg Tablet 7.5 Mg PO DAILY 02/28/16 Reported Prilosec Otc (Omeprazole Magnesium) 20 Mg Tablet.dr 20 Mg PO DAILY 02/28/16 Reported Famotidine 20 Mg Tablet 20 Mg PO BID 02/28/16 Reported Impression . 1. Bhytl-vc-suoujar hypercapnic and hypoxic respiratory failure secondary to acute exacerbation of chronic obstructive pulmonary disease and bibasilar pneumonia and Narcotics 2. Abnormal chest x-ray with bibasilar interstitial infiltrates. Clinically, I suspect pneumonia and less likely congestive heart failure. Continue with present empiric antibiotics. Her proBNP was only 146, will benefit from a noncontrast CT chest. 3. Underlying severe chronic obstructive pulmonary disease, which is oxygen dependent and uses Trilogy ventilator at nighttime. 4. Ongoing tobacco consumption. Plan . 1. We will continue with present BiPAP and follow ABGs to make sure respiratory acidosis is resolved. 2. She can use Trilogy ventilator at nighttime. 3. Continue with DuoNeb.increase q 4hr 4. Continue with IV Solu-Medrol. 5. Continue with present empiric antibiotics. 6. Noncontrast CT chest to better assess for lung infiltrates. 7. Deep venous thrombosis prophylaxis. 8. Stress ulcer prophylaxis. 9. Discussed with RN and RT. 10. d/c narcotics PRERNA CALHOUN MD May 31, 2016 10:30
[2016-05-31] MEDS: CEFTRIAXONE SODIUM 1 GM in IV NORMAL SALINE 100ML 100 ML IV SCH (10:35)
[2016-05-31] MEDS: ISOSORBIDE MONONITRATE ER 60 MG TAB.ER.24H PO SCH (10:39)
[2016-05-31] MEDS: ASPIRIN ENTERIC COATED 81 MG TABLET.DR. PO SCH (10:42)
[2016-05-31] MEDS: LACTOBACILLUS ACIDOPH & BULGAR 1 TABLET. PO SCH (10:46)
[2016-05-31] MEDS: FAMOTIDINE 20 MG TABLET. PO SCH ×2 (10:47→20:40)
[2016-05-31] MEDS: CLOPIDOGREL BISULFATE 75 MG TABLET PO SCH (10:47)
[2016-05-31] MEDS: MELOXICAM 7.5 MG TABLET PO SCH (10:48)
[2016-05-31] MEDS: OMEGA-3 FATTY ACIDS/FISH OIL 1,000 MG CAPSULE. PO SCH (10:49)
[2016-05-31] MEDS: ATENOLOL 25 MG TABLET PO SCH (10:50)
[2016-05-31] MEDS: FOLIC ACID 1 MG TABLET PO SCH (10:52)
--- NOTE | 2016-05-31 11:23 | PDOC ---
PROGRESS NOTES Chief Complaint Chief Complaint cc: sob 1. Acute hypercapnic hypoxic respiratory failure present on admission. 2. Chronic respiratory failure. 3. Chronic obstructive pulmonary disease. 4. Prior history of coronary artery disease with mild elevation of troponins. 5. Hypertension. 6. Hyperlipidemia. 7. Leukocytosis. Plan BIPAP , ABG worsening limit narcotics and benzos mild elevation troponin monitor wbc iv Rocephin and Zithromax PPN iv solumderol ABG repeat at 1 pm pulmonology following labs reviewed, cardiology following prognosis guarded. History of Present Illness History of Present Illness not doing well no fever no chills Vitals Vitals Vital Signs Date Time Temp Pulse Resp B/P Pulse Ox O2 Delivery O2 Flow Rate FiO2 05/31/16 11:00 102 22 136/77 95 BiPAP/CPAP 05/31/16 08:00 97.0 97.0 05/31/16 07:27 10.0 Physical Exam General: Alert, Oriented X3, Cooperative, mild distress Heart: Normal S1, Normal S2, Other (heart tones difficult to appreciate. tele ST ) Lungs: Other (poor air entry) Abdomen: Soft, No tenderness Extremities: No edema, Normal pulses Skin: No significant lesion Labs LABS Laboratory Tests Test 05/30/16 12:15 05/30/16 13:55 05/30/16 22:15 05/31/16 05:00 O2 Saturation 93% (92-99) Arterial Blood pH 7.35 (7.35-7.45) Arterial Blood pCO2 at Patient Temp 57mmHg (35-46) Arterial Blood pO2 at Patient Temp 66mmHg (65-108) Arterial Blood HCO3 31mmol/L (21-28) Arterial Blood Base Excess 4mmol/L (-3-3) FiO2 30% Troponin I Quantitative 0.717ng/mL (0.000-0.055) 0.598ng/mL (0.000-0.055) White Blood Count 9.8x10^3/uL (4.0-11.0) Red Blood Count 4.04x10^6/uL (3.50-5.40) Hemoglobin 10.8g/dL (12.0-15.5) Hematocrit 34.6% (36.0-47.0) Mean Corpuscular Volume 86fL (79-100) Mean Corpuscular Hemoglobin 27pg (25-35) Mean Corpuscular Hemoglobin Concent 31g/dL (31-37) Red Cell Distribution Width 17.4% (11.5-14.5) Platelet Count 307x10^3/uL (140-400) Neutrophils (%) (Auto) 93% (31-73) Lymphocytes (%) (Auto) 4% (24-48) Monocytes (%) (Auto) 4% (0-9) Eosinophils (%) (Auto) 0% (0-3) Basophils (%) (Auto) 0% (0-3) Neutrophils # (Auto) 9.1x10^3uL (1.8-7.7) Lymphocytes # (Auto) 0.4x10^3/uL (1.0-4.8) Monocytes # (Auto) 0.3x10^3/uL (0.0-1.1) Eosinophils # (Auto) 0.0x10^3/uL (0.0-0.7) Basophils # (Auto) 0.0x10^3/uL (0.0-0.2) Segmented Neutrophils % 95% (35-66) Band Neutrophils % 3% (0-9) Lymphocytes % 1% (24-48) Monocytes % 1% (0-10) Platelet Estimate Adequate (ADEQUATE) Anisocytosis Present Sodium Level 146mmol/L (136-145) Potassium Level 4.5mmol/L (3.5-5.1) Chloride Level 104mmol/L (98-107) Carbon Dioxide Level 37mmol/L (21-32) Anion Gap 5 (6-14) Blood Urea Nitrogen 19mg/dL (7-20) Creatinine 0.5mg/dL (0.6-1.0) Estimated GFR (Cockcroft-Gault) 125.9 Glucose Level 119mg/dL (70-99) Calcium Level 9.5mg/dL (8.5-10.1) Triglycerides Level 100mg/dL (0-150) Cholesterol Level 149mg/dL (0-200) LDL Cholesterol, Calculated 64mg/dL (0-100) VLDL Cholesterol, Calculated 20mg/dL (0-40) HDL Cholesterol 65mg/dL (40-60) Cholesterol/HDL Ratio 2.3 Test 05/31/16 08:00 O2 Saturation 92% (92-99) Arterial Blood pH 7.29 (7.35-7.45) Arterial Blood pCO2 at Patient Temp 81mmHg (35-46) Arterial Blood pO2 at Patient Temp 70mmHg (65-108) Arterial Blood HCO3 38mmol/L (21-28) Arterial Blood Base Excess 9mmol/L (-3-3) FiO2 35% Assessment and Plan Assessmemt and Plan Problems Medical Problems: (1) Respiratory failure Status: Acute Problems: Comment Review of Relevant I have reviewed the following items afshin (where applicable) has been applied. Labs Laboratory Tests Test 05/30/16 07:45 05/30/16 08:19 05/30/16 09:55 05/30/16 11:00 White Blood Count 15.2x10^3/uL (4.0-11.0) Red Blood Count 4.37x10^6/uL (3.50-5.40) Hemoglobin 11.7g/dL (12.0-15.5) Hematocrit 37.1% (36.0-47.0) Mean Corpuscular Volume 85fL (79-100) Mean Corpuscular Hemoglobin 27pg (25-35) Mean Corpuscular Hemoglobin Concent 32g/dL (31-37) Red Cell Distribution Width 17.6% (11.5-14.5) Platelet Count 371x10^3/uL (140-400) Neutrophils (%) (Auto) 87% (31-73) Lymphocytes (%) (Auto) 10% (24-48) Monocytes (%) (Auto) 3% (0-9) Eosinophils (%) (Auto) 0% (0-3) Basophils (%) (Auto) 0% (0-3) Neutrophils # (Auto) 13.1x10^3uL (1.8-7.7) Lymphocytes # (Auto) 1.5x10^3/uL (1.0-4.8) Monocytes # (Auto) 0.5x10^3/uL (0.0-1.1) Eosinophils # (Auto) 0.0x10^3/uL (0.0-0.7) Basophils # (Auto) 0.0x10^3/uL (0.0-0.2) Segmented Neutrophils % 87% (35-66) Lymphocytes % 9% (24-48) Monocytes % 4% (0-10) Platelet Estimate Adequate (ADEQUATE) Anisocytosis Slight Stomatocytes Occ Sodium Level 146mmol/L (136-145) Potassium Level 4.6mmol/L (3.5-5.1) Chloride Level 104mmol/L (98-107) Carbon Dioxide Level 39mmol/L (21-32) Anion Gap 3 (6-14) Blood Urea Nitrogen 23mg/dL (7-20) Creatinine 0.7mg/dL (0.6-1.0) Estimated GFR (Cockcroft-Gault) 85.4 BUN/Creatinine Ratio 33 (6-20) Glucose Level 140mg/dL (70-99) Lactic Acid Level 1.0mmol/L (0.4-2.0) 1.1mmol/L (0.4-2.0) Calcium Level 9.3mg/dL (8.5-10.1) Total Bilirubin 0.2mg/dL (0.2-1.0) Aspartate Amino Transf (AST/SGOT) 63U/L (15-37) Alanine Aminotransferase (ALT/SGPT) 74U/L (14-59) Alkaline Phosphatase 74U/L (46-116) Troponin I Quantitative 0.097ng/mL (0.000-0.055) NL-Zgq-T-Type Natriuretic Peptide 146pg/mL (0-124) Total Protein 6.3g/dL (6.4-8.2) Albumin 3.3g/dL (3.4-5.0) Albumin/Globulin Ratio 1.1 (1.0-1.7) O2 Saturation 86% (92-99) Arterial Blood pH 7.23 (7.35-7.45) Arterial Blood pCO2 at Patient Temp 85mmHg (35-46) Arterial Blood pO2 at Patient Temp 57mmHg (65-108) Arterial Blood HCO3 35mmol/L (21-28) Arterial Blood Base Excess 5mmol/L (-3-3) FiO2 30 Nasal Screen MRSA (PCR) Negative (Negative) Influenza Type A Antigen Negative (NEGATIVE) Influenza Type B Antigen Negative (NEGATIVE) Test 05/30/16 12:15 05/30/16 13:55 05/30/16 22:15 05/31/16 05:00 O2 Saturation 93% (92-99) Arterial Blood pH 7.35 (7.35-7.45) Arterial Blood pCO2 at Patient Temp 57mmHg (35-46) Arterial Blood pO2 at Patient Temp 66mmHg (65-108) Arterial Blood HCO3 31mmol/L (21-28) Arterial Blood Base Excess 4mmol/L (-3-3) FiO2 30% Troponin I Quantitative 0.717ng/mL (0.000-0.055) 0.598ng/mL (0.000-0.055) White Blood Count 9.8x10^3/uL (4.0-11.0) Red Blood Count 4.04x10^6/uL (3.50-5.40) Hemoglobin 10.8g/dL (12.0-15.5) Hematocrit 34.6% (36.0-47.0) Mean Corpuscular Volume 86fL (79-100) Mean Corpuscular Hemoglobin 27pg (25-35) Mean Corpuscular Hemoglobin Concent 31g/dL (31-37) Red Cell Distribution Width 17.4% (11.5-14.5) Platelet Count 307x10^3/uL (140-400) Neutrophils (%) (Auto) 93% (31-73) Lymphocytes (%) (Auto) 4% (24-48) Monocytes (%) (Auto) 4% (0-9) Eosinophils (%) (Auto) 0% (0-3) Basophils (%) (Auto) 0% (0-3) Neutrophils # (Auto) 9.1x10^3uL (1.8-7.7) Lymphocytes # (Auto) 0.4x10^3/uL (1.0-4.8) Monocytes # (Auto) 0.3x10^3/uL (0.0-1.1) Eosinophils # (Auto) 0.0x10^3/uL (0.0-0.7) Basophils # (Auto) 0.0x10^3/uL (0.0-0.2) Segmented Neutrophils % 95% (35-66) Band Neutrophils % 3% (0-9) Lymphocytes % 1% (24-48) Monocytes % 1% (0-10) Platelet Estimate Adequate (ADEQUATE) Anisocytosis Present Sodium Level 146mmol/L (136-145) Potassium Level 4.5mmol/L (3.5-5.1) Chloride Level 104mmol/L (98-107) Carbon Dioxide Level 37mmol/L (21-32) Anion Gap 5 (6-14) Blood Urea Nitrogen 19mg/dL (7-20) Creatinine 0.5mg/dL (0.6-1.0) Estimated GFR (Cockcroft-Gault) 125.9 Glucose Level 119mg/dL (70-99) Calcium Level 9.5mg/dL (8.5-10.1) Triglycerides Level 100mg/dL (0-150) Cholesterol Level 149mg/dL (0-200) LDL Cholesterol, Calculated 64mg/dL (0-100) VLDL Cholesterol, Calculated 20mg/dL (0-40) HDL Cholesterol 65mg/dL (40-60) Cholesterol/HDL Ratio 2.3 Test 05/31/16 08:00 O2 Saturation 92% (92-99) Arterial Blood pH 7.29 (7.35-7.45) Arterial Blood pCO2 at Patient Temp 81mmHg (35-46) Arterial Blood pO2 at Patient Temp 70mmHg (65-108) Arterial Blood HCO3 38mmol/L (21-28) Arterial Blood Base Excess 9mmol/L (-3-3) FiO2 35% Laboratory Tests Test 05/30/16 12:15 05/30/16 13:55 05/30/16 22:15 05/31/16 05:00 O2 Saturation 93% (92-99) Arterial Blood pH 7.35 (7.35-7.45) Arterial Blood pCO2 at Patient Temp 57mmHg (35-46) Arterial Blood pO2 at Patient Temp 66mmHg (65-108) Arterial Blood HCO3 31mmol/L (21-28) Arterial Blood Base Excess 4mmol/L (-3-3) FiO2 30% Troponin I Quantitative 0.717ng/mL (0.000-0.055) 0.598ng/mL (0.000-0.055) White Blood Count 9.8x10^3/uL (4.0-11.0) Red Blood Count 4.04x10^6/uL (3.50-5.40) Hemoglobin 10.8g/dL (12.0-15.5) Hematocrit 34.6% (36.0-47.0) Mean Corpuscular Volume 86fL (79-100) Mean Corpuscular Hemoglobin 27pg (25-35) Mean Corpuscular Hemoglobin Concent 31g/dL (31-37) Red Cell Distribution Width 17.4% (11.5-14.5) Platelet Count 307x10^3/uL (140-400) Neutrophils (%) (Auto) 93% (31-73) Lymphocytes (%) (Auto) 4% (24-48) Monocytes (%) (Auto) 4% (0-9) Eosinophils (%) (Auto) 0% (0-3) Basophils (%) (Auto) 0% (0-3) Neutrophils # (Auto) 9.1x10^3uL (1.8-7.7) Lymphocytes # (Auto) 0.4x10^3/uL (1.0-4.8) Monocytes # (Auto) 0.3x10^3/uL (0.0-1.1) Eosinophils # (Auto) 0.0x10^3/uL (0.0-0.7) Basophils # (Auto) 0.0x10^3/uL (0.0-0.2) Segmented Neutrophils % 95% (35-66) Band Neutrophils % 3% (0-9) Lymphocytes % 1% (24-48) Monocytes % 1% (0-10) Platelet Estimate Adequate (ADEQUATE) Anisocytosis Present Sodium Level 146mmol/L (136-145) Potassium Level 4.5mmol/L (3.5-5.1) Chloride Level 104mmol/L (98-107) Carbon Dioxide Level 37mmol/L (21-32) Anion Gap 5 (6-14) Blood Urea Nitrogen 19mg/dL (7-20) Creatinine 0.5mg/dL (0.6-1.0) Estimated GFR (Cockcroft-Gault) 125.9 Glucose Level 119mg/dL (70-99) Calcium Level 9.5mg/dL (8.5-10.1) Triglycerides Level 100mg/dL (0-150) Cholesterol Level 149mg/dL (0-200) LDL Cholesterol, Calculated 64mg/dL (0-100) VLDL Cholesterol, Calculated 20mg/dL (0-40) HDL Cholesterol 65mg/dL (40-60) Cholesterol/HDL Ratio 2.3 Test 05/31/16 08:00 O2 Saturation 92% (92-99) Arterial Blood pH 7.29 (7.35-7.45) Arterial Blood pCO2 at Patient Temp 81mmHg (35-46) Arterial Blood pO2 at Patient Temp 70mmHg (65-108) Arterial Blood HCO3 38mmol/L (21-28) Arterial Blood Base Excess 9mmol/L (-3-3) FiO2 35% Microbiology 05/30/16 Blood Culture - Preliminary, Resulted NO GROWTH AFTER 1 DAY Medications Current Medications Methylprednisolone Sodium Succinate (Solu-Medrol 125mg Vial) 125 mg 1X ONCE IV Last administered on 05/30/16 08:31; Start 05/30/16 at 07:45; Stop 05/30/16 at 07:52; Status DC Isosorbide Mononitrate (Imdur) 60 mg 1X ONCE PO Last administered on 09:02; Start 05/30/16 at 08:30; Stop 05/30/16 at 08:31; Status DC Albuterol/ Ipratropium 3 ml 3 ml 1X ONCE NEB Last administered on 05/30/16 08 :44; Start 05/30/16 at 08:30; Stop 05/30/16 at 08:31; Status DC Ceftriaxone Sodium 1 gm/ Sodium Chloride 100 ml @ 200 mls/hr Q24H IV Last administered on 05/31/16 10:35; Start 05/31/16 at 09:00 Azithromycin 500 mg/Sodium Chloride 250 ml @ 250 mls/hr Q24H IV Last administered on 05/31/16 10:30; Start 05/31/16 at 09:00; Stop 06/02/16 at 08:59 Azithromycin 250 ml @ 250 mls/hr 1X ONCE IV ; Start 05/30/16 at 09:15; Stop at 10:14; Status DC Ceftriaxone Sodium (Rocephin 1gm Ivpb For Omni) 50 ml @ 100 mls/hr 1X ONCE IV Last administered on 05/30/16 10:18; Start 05/30/16 at 09:15; Stop 05/30/16 at 09:44; Status DC Ondansetron HCl 4 mg 4 mg PRN Q8HRS PRN IV NAUSEA/VOMITING; Start 05/30/16 at 10:00; Stop 05/31/16 at 09:59; Status DC Sodium Chloride (Iv Sodium Chloride 0.9% 1000ml Bag) 1,000 ml @ 100 mls/hr Q10H IV ; Start 05/30/16 at 09:48; Stop 05/31/16 at 09:47; Status DC Acetaminophen (Tylenol) 650 mg PRN Q4HRS PRN PO FEVER; Start 05/30/16 at 10:00 ; Stop 05/31/16 at 09:59; Status DC Albuterol/ Ipratropium (Duoneb) 3 ml RTQID NEB Last administered on 05/30/16 10:50; Start 05/30/16 at 12:00; Stop 05/30/16 at 16:32; Status DC Methylprednisolone Sodium Succinate (Solu-Medrol 40mg Vial) 40 mg Q8HRS IV Last administered on 05/31/16 05:50; Start 05/30/16 at 14:00; Stop 05/31/16 at 10:27; Status DC Enoxaparin Sodium (Lovenox 40mg Syringe) 40 mg Q24H SQ Last administered on 18:17; Start 05/30/16 at 11:00 Clopidogrel Bisulfate (Plavix) 75 mg DAILY PO Last administered on 05/31/16 10 :47; Start 05/30/16 at 14:30 Aspirin (Ecotrin) 81 mg DAILYWBKFT PO Last administered on 05/31/16 10:42; Start 05/30/16 at 14:15 Atenolol (Tenormin) 25 mg DAILY PO Last administered on 05/31/16 10:50; Start 05/30/16 at 15:00 Aspirin (Ecotrin) 81 mg DAILY PO ; Start 05/31/16 at 09:00; Status UNV Famotidine (Pepcid) 20 mg BID PO Last administered on 05/31/16 10:47; Start at 21:00 Folic Acid (Folic Acid) 1 mg DAILY PO Last administered on 05/31/16 10:52; Start 05/31/16 at 09:00 Isosorbide Mononitrate (Imdur) 60 mg DAILY PO Last administered on 05/31/16 10 :39; Start 05/31/16 at 09:00 Meloxicam (Mobic) 7.5 mg DAILY PO Last administered on 05/31/16 10:48; Start 05/31/16 at 09:00 Mirabegron (Myrbetriq) 25 mg DAILY PO Last administered on 05/31/16 10:28; Start 05/31/16 at 09:00 Budesonide (Pulmicort) 0.5 mg RTBID NEB Last administered on 05/31/16 07:19; Start 05/30/16 at 20:00 Lactobacillus Acidophilus (Bacid, Christa-Bid) 1 tab DAILY PO Last administered on 05/31/16 10:46; Start 05/31/16 at 09:00 Fish Oil (Fish Oil) 1,000 mg DAILY PO Last administered on 05/31/16 10:49; Start 05/31/16 at 09:00 Atorvastatin Calcium (Lipitor) 80 mg QHS PO Last administered on 05/30/16 20: 32; Start 05/30/16 at 21:00 Albuterol/ Ipratropium (Duoneb) 3 ml RTQID NEB Last administered on 05/31/16 07:19; Start 05/30/16 at 20:00; Stop 05/31/16 at 10:27; Status DC Oxycodone HCl (Roxicodone) 10 mg PRN Q6HRS PRN PO PAIN Last administered on 04:36; Start 05/30/16 at 18:00; Stop 05/31/16 at 10:28; Status DC Ketorolac Tromethamine (Toradol) 30 mg PRN Q6HRS PRN IV PAIN; Start 05/30/16 at 19:15; Stop 06/04/16 at 19:14 Albuterol/ Ipratropium (Duoneb) 3 ml Q4HRS NEB ; Start 05/31/16 at 12:00 Methylprednisolone Sodium Succinate 60 mg 60 mg Q8HRS IV ; Start 05/31/16 at 14: 00 Amino Acids/ Electrolytes (Clinimix E 2.75%-5% Solution) 1,000 ml @ 50 mls/hr Q20H IV ; Start 05/31/16 at 12:00 Docusate Sodium (Colace) 100 mg DAILY PO ; Start 05/31/16 at 11:30 Active Scripts Active Reported Calcium (Calcium Carbonate) 500 Mg Tab.chew 500 Mg PO Multivitamins (Multivitamin) 1 Each Capsule 1 Each PO Folic Acid 1 Mg Tablet 1 Tab PO DAILY Myrbetriq (Mirabegron) 25 Mg Tab.er.24h 25 Mg PO DAILY Isosorbide Mononitrate 20 Mg Tablet 60 Mg PO DAILY Probiotic (Lactobacillus Combo No.11) 1 Each Cap.sprink 1 Each PO DAILY Fish Oil ([place]-3 Fatty Acids) 300 Mg Capsule 1,200 Mg PO BID Crestor (Rosuvastatin Calcium) 40 Mg Tablet 1 Tab PO DAILY Aspir 81 (Aspirin) 81 Mg Tablet.dr 1 Tab PO DAILY Advair 250-50 Diskus (Fluticasone/Salmeterol) 1 Each Disk.w.dev 1 Puff IH BID Plavix (Clopidogrel Bisulfate) 75 Mg Tablet 75 Mg PO DAILY Atenolol 25 Mg Tablet 25 Mg PO DAILY Mirapex (Pramipexole Di-Hcl) 0.25 Mg Tablet 0.25 Mg PO Oxycodone Hcl 10 Mg Tablet 10 Mg PO PRN Spiriva (Tiotropium [place]) 18 Mcg Cap.w.dev 2 Inh IH DAILY Albuterol Sulfate Oral Syrup (Albuterol Sulfate) 2 Mg/5 Ml Syrup 4 Mg PO QID Meloxicam 7.5 Mg Tablet 7.5 Mg PO DAILY Prilosec Otc (Omeprazole Magnesium) 20 Mg Tablet. 20 Mg PO DAILY Famotidine 20 Mg Tablet 20 Mg PO BID Vitals/I & O Vital Sign - Last 24 Hours 05/30/16 05/30/16 05/30/16 05/30/16 12:00 12:00 12:35 13:00 Pulse 94 94 B/P Pulse Ox 91 95 91 O2 Delivery Bi-pap BiPAP/CPAP BiPAP/CPAP BiPAP/CPAP 05/30/16 05/30/16 05/30/16 05/30/16 14:00 14:52 15:00 16:00 Temp 98.2 98.2 Pulse 94 94 94 B/P 168/74 Pulse Ox 91 95 91 91 O2 Delivery BiPAP/CPAP BiPAP/CPAP BiPAP/CPAP BiPAP/CPAP 2/23/17 2/23/17 2/23/17 2/23/17 16:00 17:00 17:13 18:00 Pulse 94 94 B/P Pulse Ox 91 97 91 O2 Delivery Bi-pap BiPAP/CPAP Venturi Mask BiPAP/CPAP O2 Flow Rate 10.0 05/30/16 05/30/16 05/30/16 05/30/16 18:16 18:16 19:00 19:10 Pulse 111 90 Resp 20 B/P 145/52 Pulse Ox 97 96 97 O2 Delivery BiPAP/CPAP O2 Flow Rate 10.0 05/30/16 05/30/16 05/30/16 05/30/16 19:12 19:30 20:00 21:00 Temp 97.6 97.6 Pulse 88 84 Resp 18 22 B/P 104/61 Pulse Ox 97 95 96 O2 Delivery Bi-pap BiPAP/CPAP BiPAP/CPAP O2 Flow Rate 10.0 05/30/16 05/30/16 05/30/16 05/31/16 21:33 22:00 23:00 00:00 Pulse 87 87 Resp 22 20 B/P 111/70 122/68 Pulse Ox 95 95 93 O2 Delivery BiPAP/CPAP BiPAP/CPAP BiPAP/CPAP Bi-pap 05/31/16 05/31/16 05/31/16 05/31/16 00:00 00:26 01:00 02:00 Temp 98.0 98.0 Pulse 82 84 86 Resp 18 22 B/P 110/55 111/58 114/64 Pulse Ox 95 95 97 96 O2 Delivery BiPAP/CPAP BiPAP/CPAP BiPAP/CPAP BiPAP/CPAP 05/31/16 05/31/16 05/31/16 05/31/16 02:55 03:00 04:00 04:10 Temp 97.5 97.5 Pulse 83 87 Resp 16 20 B/P 103/55 133/61 Pulse Ox 94 96 93 O2 Delivery BiPAP/CPAP BiPAP/CPAP BiPAP/CPAP Bi-pap 05/31/16 05/31/16 05/31/16 05/31/16 04:36 05:00 05:13 05:40 Pulse 82 Resp 18 20 24 B/P 113/60 Pulse Ox 95 94 95 94 O2 Delivery BiPAP/CPAP BiPAP/CPAP BiPAP/CPAP BiPAP/CPAP 05/31/16 05/31/16 05/31/16 05/31/16 06:00 07:00 07:22 07:27 Pulse 96 105 Resp 27 19 B/P 132/65 132/72 Pulse Ox 92 87 93 93 O2 Delivery Venturi Mask Venturi Mask O2 Flow Rate 10.0 10.0 05/31/16 05/31/16 05/31/16 05/31/16 07:37 08:00 08:00 09:00 Temp 97.0 97.0 Pulse 102 96 Resp 24 18 B/P 138/67 119/66 Pulse Ox 90 92 95 O2 Delivery BiPAP/CPAP BiPAP/CPAP Bi-pap BiPAP/CPAP 05/31/16 05/31/16 05/31/16 05/31/16 09:56 10:00 10:39 10:50 Pulse 102 104 100 Resp 25 B/P 141/67 141/67 141/67 Pulse Ox 90 96 O2 Delivery BiPAP/CPAP BiPAP/CPAP 05/31/16 11:00 Pulse 102 Resp 22 B/P 136/77 Pulse Ox 95 O2 Delivery BiPAP/CPAP Intake and Output 05/30/16 05/30/16 05/31/16 15:00 23:00 07:00 Intake Total 120 ml 120 ml Output Total 0 ml 1000 ml Balance 120 ml -880 ml JENNIFER DO MD May 31, 2016 11:23
[2016-05-31] MEDS ORDERED: AA 2.75%/CALCIUM/LYTES/D5W 1,000 ML IV SCH (12:00)
[2016-05-31] MEDS: ENOXAPARIN 40 MG/0.4 ML DISP.SYRIN. SQ SCH (13:23)
[2016-05-31] MEDS: DOCUSATE SODIUM 100 MG CAPSULE PO SCH (13:30)
--- NOTE | 2016-05-31 14:06 | PDOC ---
CARDIO Progress Notes Date and Time Date of Service 05/31/2016 Time of Evaluation 1345 Subjective Subjective: No Chest Pain, No Palpitations, Other (on bipap, feels better) Vitals Vitals Vital Signs Date Time Temp Pulse Resp B/P Pulse Ox O2 Delivery O2 Flow Rate FiO2 05/31/16 13:00 77 27 102/50 98 BiPAP/CPAP 05/31/16 12:00 97.2 97.2 05/31/16 07:27 10.0 Weight Weight [ ] Input and Output Intake and Output Intake and Output 05/31/16 07:00 Intake Total 240 ml Output Total 1000 ml Balance -760 ml Intake Oral 240 ml Output Urine Total 1000 ml # Voids 5 Laboratory Labs Laboratory Tests Test 05/30/16 22:15 05/31/16 05:00 05/31/16 08:00 Troponin I Quantitative 0.598ng/mL (0.000-0.055) White Blood Count 9.8x10^3/uL (4.0-11.0) Red Blood Count 4.04x10^6/uL (3.50-5.40) Hemoglobin 10.8g/dL (12.0-15.5) Hematocrit 34.6% (36.0-47.0) Mean Corpuscular Volume 86fL (79-100) Mean Corpuscular Hemoglobin 27pg (25-35) Mean Corpuscular Hemoglobin Concent 31g/dL (31-37) Red Cell Distribution Width 17.4% (11.5-14.5) Platelet Count 307x10^3/uL (140-400) Neutrophils (%) (Auto) 93% (31-73) Lymphocytes (%) (Auto) 4% (24-48) Monocytes (%) (Auto) 4% (0-9) Eosinophils (%) (Auto) 0% (0-3) Basophils (%) (Auto) 0% (0-3) Neutrophils # (Auto) 9.1x10^3uL (1.8-7.7) Lymphocytes # (Auto) 0.4x10^3/uL (1.0-4.8) Monocytes # (Auto) 0.3x10^3/uL (0.0-1.1) Eosinophils # (Auto) 0.0x10^3/uL (0.0-0.7) Basophils # (Auto) 0.0x10^3/uL (0.0-0.2) Segmented Neutrophils % 95% (35-66) Band Neutrophils % 3% (0-9) Lymphocytes % 1% (24-48) Monocytes % 1% (0-10) Platelet Estimate Adequate (ADEQUATE) Anisocytosis Present Sodium Level 146mmol/L (136-145) Potassium Level 4.5mmol/L (3.5-5.1) Chloride Level 104mmol/L (98-107) Carbon Dioxide Level 37mmol/L (21-32) Anion Gap 5 (6-14) Blood Urea Nitrogen 19mg/dL (7-20) Creatinine 0.5mg/dL (0.6-1.0) Estimated GFR (Cockcroft-Gault) 125.9 Glucose Level 119mg/dL (70-99) Calcium Level 9.5mg/dL (8.5-10.1) Triglycerides Level 100mg/dL (0-150) Cholesterol Level 149mg/dL (0-200) LDL Cholesterol, Calculated 64mg/dL (0-100) VLDL Cholesterol, Calculated 20mg/dL (0-40) HDL Cholesterol 65mg/dL (40-60) Cholesterol/HDL Ratio 2.3 O2 Saturation 92% (92-99) Arterial Blood pH 7.29 (7.35-7.45) Arterial Blood pCO2 at Patient Temp 81mmHg (35-46) Arterial Blood pO2 at Patient Temp 70mmHg (65-108) Arterial Blood HCO3 38mmol/L (21-28) Arterial Blood Base Excess 9mmol/L (-3-3) FiO2 35% Microbiology Micro Microbiology 05/30/16 Blood Culture - Preliminary, Resulted NO GROWTH AFTER 1 DAY Physical Exam HEENT: Neck Supple W Full Motion Chest: Symmetric LUNGS: Other (diminished; Bipap) Heart: S1S2, RRR (no significant ectopies overnight) Abdomen: Soft N/T Extremities: No Edema, No Calf Tenderness Neurology: alert, oriented, follow commands Assessment Assessment 1. Mild troponin elevation Peaked troponin at 0.7 Likely demand mediated Unknown TTE baseline. Current TTE with EF 45-50% with proximal inferior septal hypokinesis, otherwise, mild global hypokinesis. Plan for MPI on Friday once respiratory status is optimal. 2. Acute respiratory failure with AE COPD and possible pneumonia Remains on BiPAP per pulmonary 3. CAD 08/2011 LHC noted with patent stents to LAD, Dx, LCx and RCA. Diffuse plaquing to distal LCx. EF 55% with questionable inferior hypokinesis DAPT, atenolol. Will consider for ACEi/ARB No prior echo was noted 4. HTN controlled. Continue regimen per BP trend 5. HLP Lipds on goal, continue with statin ARIANNA FAUST APRN May 31, 2016 14:06
[2016-05-31 15:24] LABS: HCO3 ABG 39 mmol/L (21-28); PH ABG 7.33 (7.35-7.45); PO2 ABG 65 mmHg (65-108); SAT O2 ABG 92 % (92-99)
[2016-05-31 17:34] LABS: FIO2 ABG 40; PCO2 ABG 75 mmHg (35-46)
--- NOTE | 2016-05-31 17:39 | RAD ---
PROCEDURE CT chest without contrast HISTORY Dyspnea and abnormal chest x-ray TECHNIQUE Axial helical images of the chest were obtained without contrast and axial coronal and sagittal reconstruction was performed. FINDINGS There is vague patchy opacities in the peripheral lungs and bilaterally especially at the lung bases. There is no mediastinal or hilar lymphadenopathy. There is coronary artery calcifications. IMPRESSION One. Subtle peripheral opacities are nonspecific but likely chronic pulmonary fibrosis. 2. Significant coronary artery calcifications. Electronically signed by: Selwyn Reeves MD (May 31, 2016 17:38:10)
[2016-05-31] MEDS ORDERED: PRAMIPEXOLE 1 MG TABLET. PO ONE (19:57)
[2016-05-31] MEDS: ATORVASTATIN CALCIUM 40 MG TABLET. PO SCH (20:40)
[2016-06-01] VITALS (22 sets, daily range): BP systolic 96–176; BP diastolic 47–89
[2016-06-01] MEDS: ACETAMINOPHEN 325 MG TABLET. PO PRN ×2 (02:48→09:12)
[2016-06-01] MEDS: IPRATRPIUM/ALBUTEROL 0.5/2.5MG 3 ML NEBU. NEB SCH ×6 (03:17→22:31)
[2016-06-01] MEDS: methylPREDNISolone SOD SUCC PF 40 MG/ML VIAL. IV SCH ×3 (05:12→21:53)
[2016-06-01] MEDS: BUDESONIDE 0.5 MG/2 ML NEBU NEB SCH ×2 (08:37→20:00)
[2016-06-01 08:57] LABS: HCO3 ABG 45 mmol/L (21-28); PH ABG 7.25 (7.35-7.45); PO2 ABG 99 mmHg (65-108); SAT O2 ABG 96 % (92-99)
[2016-06-01 09:07] LABS: FIO2 ABG 40; PCO2 ABG 105 mmHg (35-46)
[2016-06-01] MEDS: ISOSORBIDE MONONITRATE ER 60 MG TAB.ER.24H PO SCH (09:12)
[2016-06-01] MEDS: FAMOTIDINE 20 MG TABLET. PO SCH ×2 (09:12→20:40)
[2016-06-01] MEDS: OMEGA-3 FATTY ACIDS/FISH OIL 1,000 MG CAPSULE. PO SCH (09:13)
[2016-06-01] MEDS: DOCUSATE SODIUM 100 MG CAPSULE PO SCH (09:13)
[2016-06-01] MEDS: ATENOLOL 25 MG TABLET PO SCH (09:13)
[2016-06-01] MEDS: MIRABEGRON 25 MG TAB.ER.24H PO SCH (09:13)
[2016-06-01] MEDS: FOLIC ACID 1 MG TABLET PO SCH (09:13)
[2016-06-01] MEDS: CLOPIDOGREL BISULFATE 75 MG TABLET PO SCH (09:13)
[2016-06-01] MEDS: ASPIRIN ENTERIC COATED 81 MG TABLET.DR. PO SCH (09:13)
[2016-06-01] MEDS: LACTOBACILLUS ACIDOPH & BULGAR 1 TABLET. PO SCH (09:13)
[2016-06-01] MEDS: AZITHROMYCIN 500 MG in IV NORMAL SALINE 250ML 250 ML IV SCH (09:14)
[2016-06-01] MEDS: CEFTRIAXONE SODIUM 1 GM in IV NORMAL SALINE 100ML 100 ML IV SCH (09:14)
[2016-06-01] MEDS: MELOXICAM 7.5 MG TABLET PO SCH (09:14)
[2016-06-01] MEDS ORDERED: ALPRAZOLAM 0.25 MG TABLET PO ONE (10:00)
--- NOTE | 2016-06-01 10:41 | PDOC ---
PROGRESS NOTES Chief Complaint Chief Complaint cc: sob 1. Acute hypercapnic hypoxic respiratory failure present on admission. 2. Chronic respiratory failure. 3. Chronic obstructive pulmonary disease. 4. Prior history of coronary artery disease with mild elevation of troponins. 5. Hypertension. 6. Hyperlipidemia. 7. Leukocytosis. History of Present Illness History of Present Illness not doing well no fever no chills On BiPAP with 30% FIO2 Vitals Vitals Vital Signs Date Time Temp Pulse Resp B/P Pulse Ox O2 Delivery O2 Flow Rate FiO2 06/01/16 09:13 123 149/71 06/01/16 08:30 100 BiPAP/CPAP 06/01/16 06:00 20 06/01/16 04:00 98.5 98.5 05/31/16 07:27 10.0 Physical Exam General: mild distress, Other (sleeeping o0n BiPAP) Heart: Normal S1, Normal S2, Other (heart tones difficult to appreciate. tele ST ) Lungs: Other (poor air entry) Abdomen: Soft, No tenderness Extremities: No edema, Normal pulses Skin: No significant lesion Labs LABS Laboratory Tests Test 05/31/16 14:31 06/01/16 08:30 O2 Saturation 92% (92-99) 96% (92-99) Arterial Blood pH 7.33 (7.35-7.45) 7.25 (7.35-7.45) Arterial Blood pCO2 at Patient Temp 75mmHg (35-46) 105mmHg (35-46) Arterial Blood pO2 at Patient Temp 65mmHg (65-108) 99mmHg (65-108) Arterial Blood HCO3 39mmol/L (21-28) 45mmol/L (21-28) Arterial Blood Base Excess 10mmol/L (-3-3) 13mmol/L (-3-3) FiO2 40 40 Review of Systems Review of Systems unreliable Assessment and Plan Assessmemt and Plan Problems Medical Problems: (1) Respiratory failure Status: Acute 1. Acute hypercapnic hypoxic respiratory failure present on admission. 2. Chronic respiratory failure. 3. Chronic obstructive pulmonary disease. 4. Prior history of coronary artery disease with mild elevation of troponins. 5. Hypertension. 6. Hyperlipidemia. 7. Leukocytosis. Plan BIPAP , ABG worsening limit narcotics and benzos mild elevation troponin monitor wbc iv Rocephin and Zithromax PPN iv solumderol ABG repeat at 1 pm pulmonology following labs reviewed, cardiology following DW RN Added Stadol prognosis guarded. Problems: Comment Review of Relevant I have reviewed the following items afshin (where applicable) has been applied. Labs Laboratory Tests Test 05/30/16 11:00 05/30/16 12:15 05/30/16 13:55 05/30/16 22:15 Nasal Screen MRSA (PCR) Negative (Negative) Influenza Type A Antigen Negative (NEGATIVE) Influenza Type B Antigen Negative (NEGATIVE) O2 Saturation 93% (92-99) Arterial Blood pH 7.35 (7.35-7.45) Arterial Blood pCO2 at Patient Temp 57mmHg (35-46) Arterial Blood pO2 at Patient Temp 66mmHg (65-108) Arterial Blood HCO3 31mmol/L (21-28) Arterial Blood Base Excess 4mmol/L (-3-3) FiO2 30% Troponin I Quantitative 0.717ng/mL (0.000-0.055) 0.598ng/mL (0.000-0.055) Test 05/31/16 05:00 05/31/16 08:00 05/31/16 14:31 06/01/16 08:30 White Blood Count 9.8x10^3/uL (4.0-11.0) Red Blood Count 4.04x10^6/uL (3.50-5.40) Hemoglobin 10.8g/dL (12.0-15.5) Hematocrit 34.6% (36.0-47.0) Mean Corpuscular Volume 86fL (79-100) Mean Corpuscular Hemoglobin 27pg (25-35) Mean Corpuscular Hemoglobin Concent 31g/dL (31-37) Red Cell Distribution Width 17.4% (11.5-14.5) Platelet Count 307x10^3/uL (140-400) Neutrophils (%) (Auto) 93% (31-73) Lymphocytes (%) (Auto) 4% (24-48) Monocytes (%) (Auto) 4% (0-9) Eosinophils (%) (Auto) 0% (0-3) Basophils (%) (Auto) 0% (0-3) Neutrophils # (Auto) 9.1x10^3uL (1.8-7.7) Lymphocytes # (Auto) 0.4x10^3/uL (1.0-4.8) Monocytes # (Auto) 0.3x10^3/uL (0.0-1.1) Eosinophils # (Auto) 0.0x10^3/uL (0.0-0.7) Basophils # (Auto) 0.0x10^3/uL (0.0-0.2) Segmented Neutrophils % 95% (35-66) Band Neutrophils % 3% (0-9) Lymphocytes % 1% (24-48) Monocytes % 1% (0-10) Platelet Estimate Adequate (ADEQUATE) Anisocytosis Present Sodium Level 146mmol/L (136-145) Potassium Level 4.5mmol/L (3.5-5.1) Chloride Level 104mmol/L (98-107) Carbon Dioxide Level 37mmol/L (21-32) Anion Gap 5 (6-14) Blood Urea Nitrogen 19mg/dL (7-20) Creatinine 0.5mg/dL (0.6-1.0) Estimated GFR (Cockcroft-Gault) 125.9 Glucose Level 119mg/dL (70-99) Calcium Level 9.5mg/dL (8.5-10.1) Triglycerides Level 100mg/dL (0-150) Cholesterol Level 149mg/dL (0-200) LDL Cholesterol, Calculated 64mg/dL (0-100) VLDL Cholesterol, Calculated 20mg/dL (0-40) HDL Cholesterol 65mg/dL (40-60) Cholesterol/HDL Ratio 2.3 O2 Saturation 92% (92-99) 92% (92-99) 96% (92-99) Arterial Blood pH 7.29 (7.35-7.45) 7.33 (7.35-7.45) 7.25 (7.35-7.45) Arterial Blood pCO2 at Patient Temp 81mmHg (35-46) 75mmHg (35-46) 105mmHg (35-46) Arterial Blood pO2 at Patient Temp 70mmHg (65-108) 65mmHg (65-108) 99mmHg (65-108) Arterial Blood HCO3 38mmol/L (21-28) 39mmol/L (21-28) 45mmol/L (21-28) Arterial Blood Base Excess 9mmol/L (-3-3) 10mmol/L (-3-3) 13mmol/L (-3-3) FiO2 35% 40 40 Laboratory Tests Test 05/31/16 14:31 06/01/16 08:30 O2 Saturation 92% (92-99) 96% (92-99) Arterial Blood pH 7.33 (7.35-7.45) 7.25 (7.35-7.45) Arterial Blood pCO2 at Patient Temp 75mmHg (35-46) 105mmHg (35-46) Arterial Blood pO2 at Patient Temp 65mmHg (65-108) 99mmHg (65-108) Arterial Blood HCO3 39mmol/L (21-28) 45mmol/L (21-28) Arterial Blood Base Excess 10mmol/L (-3-3) 13mmol/L (-3-3) FiO2 40 40 Microbiology 05/30/16 Blood Culture - Preliminary, Resulted NO GROWTH AFTER 2 DAYS Medications Current Medications Methylprednisolone Sodium Succinate (Solu-Medrol 125mg Vial) 125 mg 1X ONCE IV Last administered on 05/30/16 08:31; Start 05/30/16 at 07:45; Stop 05/30/16 at 07:52; Status DC Isosorbide Mononitrate (Imdur) 60 mg 1X ONCE PO Last administered on 09:02; Start 05/30/16 at 08:30; Stop 05/30/16 at 08:31; Status DC Albuterol/ Ipratropium 3 ml 3 ml 1X ONCE NEB Last administered on 05/30/16 08 :44; Start 05/30/16 at 08:30; Stop 05/30/16 at 08:31; Status DC Ceftriaxone Sodium 1 gm/ Sodium Chloride 100 ml @ 200 mls/hr Q24H IV Last administered on 06/01/16 09:14; Start 05/31/16 at 09:00 Azithromycin 500 mg/Sodium Chloride 250 ml @ 250 mls/hr Q24H IV Last administered on 06/01/16 09:14; Start 05/31/16 at 09:00; Stop 06/02/16 at 08:59 Azithromycin 250 ml @ 250 mls/hr 1X ONCE IV ; Start 05/30/16 at 09:15; Stop at 10:14; Status DC Ceftriaxone Sodium (Rocephin 1gm Ivpb For Omni) 50 ml @ 100 mls/hr 1X ONCE IV Last administered on 05/30/16 10:18; Start 05/30/16 at 09:15; Stop 05/30/16 at 09:44; Status DC Ondansetron HCl 4 mg 4 mg PRN Q8HRS PRN IV NAUSEA/VOMITING; Start 05/30/16 at 10:00; Stop 05/31/16 at 09:59; Status DC Sodium Chloride (Iv Sodium Chloride 0.9% 1000ml Bag) 1,000 ml @ 100 mls/hr Q10H IV ; Start 05/30/16 at 09:48; Stop 05/31/16 at 09:47; Status DC Acetaminophen (Tylenol) 650 mg PRN Q4HRS PRN PO FEVER; Start 05/30/16 at 10:00 ; Stop 05/31/16 at 09:59; Status DC Albuterol/ Ipratropium (Duoneb) 3 ml RTQID NEB Last administered on 05/30/16 10:50; Start 05/30/16 at 12:00; Stop 05/30/16 at 16:32; Status DC Methylprednisolone Sodium Succinate (Solu-Medrol 40mg Vial) 40 mg Q8HRS IV Last administered on 05/31/16 05:50; Start 05/30/16 at 14:00; Stop 05/31/16 at 10:27; Status DC Enoxaparin Sodium (Lovenox 40mg Syringe) 40 mg Q24H SQ Last administered on 13:23; Start 05/30/16 at 11:00 Clopidogrel Bisulfate (Plavix) 75 mg DAILY PO Last administered on 06/01/16 09 :13; Start 05/30/16 at 14:30 Aspirin (Ecotrin) 81 mg DAILYWBKFT PO Last administered on 06/01/16 09:13; Start 05/30/16 at 14:15 Atenolol (Tenormin) 25 mg DAILY PO Last administered on 06/01/16 09:13; Start 05/30/16 at 15:00 Aspirin (Ecotrin) 81 mg DAILY PO ; Start 05/31/16 at 09:00; Status UNV Famotidine (Pepcid) 20 mg BID PO Last administered on 06/01/16 09:12; Start at 21:00 Folic Acid (Folic Acid) 1 mg DAILY PO Last administered on 06/01/16 09:13; Start 05/31/16 at 09:00 Isosorbide Mononitrate (Imdur) 60 mg DAILY PO Last administered on 06/01/16 09 :12; Start 05/31/16 at 09:00 Meloxicam (Mobic) 7.5 mg DAILY PO Last administered on 06/01/16 09:14; Start 05/31/16 at 09:00 Mirabegron (Myrbetriq) 25 mg DAILY PO Last administered on 06/01/16 09:13; Start 05/31/16 at 09:00 Budesonide (Pulmicort) 0.5 mg RTBID NEB Last administered on 06/01/16 08:37; Start 05/30/16 at 20:00 Lactobacillus Acidophilus (Bacid, Christa-Bid) 1 tab DAILY PO Last administered on 06/01/16 09:13; Start 05/31/16 at 09:00 Fish Oil (Fish Oil) 1,000 mg DAILY PO Last administered on 06/01/16 09:13; Start 05/31/16 at 09:00 Atorvastatin Calcium (Lipitor) 80 mg QHS PO Last administered on 05/31/16 20: 40; Start 05/30/16 at 21:00 Albuterol/ Ipratropium (Duoneb) 3 ml RTQID NEB Last administered on 05/31/16 07:19; Start 05/30/16 at 20:00; Stop 05/31/16 at 10:27; Status DC Oxycodone HCl (Roxicodone) 10 mg PRN Q6HRS PRN PO PAIN Last administered on 04:36; Start 05/30/16 at 18:00; Stop 05/31/16 at 10:28; Status DC Ketorolac Tromethamine (Toradol) 30 mg PRN Q6HRS PRN IV PAIN; Start 05/30/16 at 19:15; Stop 05/31/16 at 12:38; Status DC Albuterol/ Ipratropium (Duoneb) 3 ml Q4HRS NEB Last administered on 06/01/16 08:37; Start 05/31/16 at 12:00 Methylprednisolone Sodium Succinate 60 mg 60 mg Q8HRS IV Last administered on 05:12; Start 05/31/16 at 14:00 Amino Acids/ Electrolytes (Clinimix E 2.75%-5% Solution) 1,000 ml @ 50 mls/hr Q20H IV Last administered on 05/31/16 13:27; Start 05/31/16 at 12:00 Docusate Sodium (Colace) 100 mg DAILY PO Last administered on 06/01/16 09:13; Start 05/31/16 at 11:30 Pramipexole Dihydrochloride (miraPEX) 0.5 mg ONCE ONCE PO Last administered on 05/31/16 20:40; Start 05/31/16 at 19:57; Stop 05/31/16 at 19:58; Status DC Pramipexole Dihydrochloride (miraPEX) 0.25 mg QHS PO ; Start 06/01/16 at 21:00 Acetaminophen (Tylenol) 650 mg PRN Q6HRS PRN PO MILD PAIN / TEMP Last administered on 06/01/16 09:12; Start 06/01/16 at 02:45 Alprazolam (Xanax) 0.25 mg 1X ONCE PO Last administered on 06/01/16 09:37; Start 06/01/16 at 10:00; Stop 06/01/16 at 10:01; Status DC Butorphanol Tartrate (Stadol) 1 mg PRN Q6HRS PRN IV PAIN; Start 06/01/16 at 10: 45 Active Scripts Active Reported Calcium (Calcium Carbonate) 500 Mg Tab.chew 500 Mg PO Multivitamins (Multivitamin) 1 Each Capsule 1 Each PO Folic Acid 1 Mg Tablet 1 Tab PO DAILY Myrbetriq (Mirabegron) 25 Mg Tab.er.24h 25 Mg PO DAILY Isosorbide Mononitrate 20 Mg Tablet 60 Mg PO DAILY Probiotic (Lactobacillus Combo No.11) 1 Each Cap.sprink 1 Each PO DAILY Fish Oil ([place]-3 Fatty Acids) 300 Mg Capsule 1,200 Mg PO BID Crestor (Rosuvastatin Calcium) 40 Mg Tablet 1 Tab PO DAILY Aspir 81 (Aspirin) 81 Mg Tablet.dr 1 Tab PO DAILY Advair 250-50 Diskus (Fluticasone/Salmeterol) 1 Each Disk.w.dev 1 Puff IH BID Plavix (Clopidogrel Bisulfate) 75 Mg Tablet 75 Mg PO DAILY Atenolol 25 Mg Tablet 25 Mg PO DAILY Mirapex (Pramipexole Di-Hcl) 0.25 Mg Tablet 0.25 Mg PO Oxycodone Hcl 10 Mg Tablet 10 Mg PO PRN Spiriva (Tiotropium [place]) 18 Mcg Cap.w.dev 2 Inh IH DAILY Albuterol Sulfate Oral Syrup (Albuterol Sulfate) 2 Mg/5 Ml Syrup 4 Mg PO QID Meloxicam 7.5 Mg Tablet 7.5 Mg PO DAILY Prilosec Otc (Omeprazole Magnesium) 20 Mg Tablet.dr 20 Mg PO DAILY Famotidine 20 Mg Tablet 20 Mg PO BID Vitals/I & O Vital Sign - Last 24 Hours 05/31/16 05/31/16 05/31/16 05/31/16 10:50 11:00 11:44 12:00 Temp 97.2 97.2 Pulse 100 102 85 Resp 22 24 B/P 141/67 136/77 104/69 Pulse Ox 95 97 97 O2 Delivery BiPAP/CPAP BiPAP/CPAP BiPAP/CPAP 05/31/16 05/31/16 05/31/16 05/31/16 12:00 13:00 14:00 14:02 Pulse 77 78 Resp 27 22 B/P 102/50 83/39 Pulse Ox 98 99 97 O2 Delivery Bi-pap BiPAP/CPAP BiPAP/CPAP BiPAP/CPAP 05/31/16 05/31/16 05/31/16 05/31/16 15:00 15:55 16:00 16:00 Pulse 82 88 Resp 17 25 B/P 104/59 111/59 Pulse Ox 99 98 99 O2 Delivery BiPAP/CPAP BiPAP/CPAP BiPAP/CPAP Bi-pap 05/31/16 05/31/16 05/31/16 05/31/16 18:00 18:02 19:00 19:20 Temp 96.5 96.5 Pulse 88 84 Resp 23 25 B/P 103/53 85/44 Pulse Ox 100 97 99 99 O2 Delivery BiPAP/CPAP BiPAP/CPAP BiPAP/CPAP BiPAP/CPAP 05/31/16 05/31/16 05/31/16 05/31/16 20:00 20:00 21:00 21:25 Temp 98.0 98.0 Pulse 91 82 Resp 25 B/P 109/51 102/50 Pulse Ox 98 98 98 O2 Delivery Bi-pap BiPAP/CPAP BiPAP/CPAP BiPAP/CPAP 05/31/16 05/31/16 05/31/16 05/31/16 22:00 23:00 23:35 23:59 Pulse 89 95 Resp 30 30 B/P 108/50 113/62 Pulse Ox 98 96 98 O2 Delivery BiPAP/CPAP BiPAP/CPAP BiPAP/CPAP Bi-pap 06/01/16 06/01/16 06/01/16 06/01/16 00:00 01:00 01:05 02:00 Temp 98.1 98.1 Pulse 90 90 92 Resp 22 28 27 B/P 127/62 125/63 125/63 Pulse Ox 98 96 97 97 O2 Delivery BiPAP/CPAP BiPAP/CPAP BiPAP/CPAP BiPAP/CPAP 06/01/16 06/01/16 06/01/16 06/01/16 03:00 03:18 04:00 04:00 Temp 98.5 98.5 Pulse 100 82 Resp 26 B/P 136/60 102/54 Pulse Ox 95 96 100 O2 Delivery BiPAP/CPAP BiPAP/CPAP Bi-pap BiPAP/CPAP 06/01/16 06/01/16 06/01/16 06/01/16 05:00 05:10 06:00 08:30 Pulse 91 101 Resp 20 B/P 102/54 150/66 Pulse Ox 100 100 100 100 O2 Delivery BiPAP/CPAP BiPAP/CPAP BiPAP/CPAP BiPAP/CPAP 06/01/16 06/01/16 09:12 09:13 Pulse 123 123 B/P 149/71 149/71 Intake and Output 05/31/16 05/31/16 06/01/16 15:00 23:00 07:00 Intake Total 987 ml Output Total 550 ml 600 ml Balance -550 ml 387 ml CASTLE,NIAL K III DO Jun 01, 2016 10:41
[2016-06-01 13:17] LABS: HCO3 ABG 35 mmol/L (21-28); PO2 ABG 73 mmHg (65-108); SAT O2 ABG 94 % (92-99)
[2016-06-01 13:18] LABS: FIO2 ABG 30; PCO2 ABG 74 mmHg (35-46)
--- NOTE | 2016-06-01 13:45 | PDOC ---
PULMONARY PROGRESS NOTES Subjective On BIPAP since yesterday was restless and increase hypercapnic again today, caused by hyperoxia Vitals Vital Signs Date Time Temp Pulse Resp B/P Pulse Ox O2 Delivery O2 Flow Rate FiO2 06/01/16 09:13 123 149/71 06/01/16 08:30 100 BiPAP/CPAP 06/01/16 06:00 20 06/01/16 04:00 98.5 98.5 05/31/16 07:27 10.0 General: No acute distress Lungs: Other (poor air entry) Cardiovascular: S1 Abdomen: Soft Extremities: No Edema Skin: Warm Labs Laboratory Tests Test 05/30/16 13:55 05/30/16 22:15 05/31/16 05:00 05/31/16 08:00 Troponin I Quantitative 0.717ng/mL (0.000-0.055) 0.598ng/mL (0.000-0.055) White Blood Count 9.8x10^3/uL (4.0-11.0) Red Blood Count 4.04x10^6/uL (3.50-5.40) Hemoglobin 10.8g/dL (12.0-15.5) Hematocrit 34.6% (36.0-47.0) Mean Corpuscular Volume 86fL (79-100) Mean Corpuscular Hemoglobin 27pg (25-35) Mean Corpuscular Hemoglobin Concent 31g/dL (31-37) Red Cell Distribution Width 17.4% (11.5-14.5) Platelet Count 307x10^3/uL (140-400) Neutrophils (%) (Auto) 93% (31-73) Lymphocytes (%) (Auto) 4% (24-48) Monocytes (%) (Auto) 4% (0-9) Eosinophils (%) (Auto) 0% (0-3) Basophils (%) (Auto) 0% (0-3) Neutrophils # (Auto) 9.1x10^3uL (1.8-7.7) Lymphocytes # (Auto) 0.4x10^3/uL (1.0-4.8) Monocytes # (Auto) 0.3x10^3/uL (0.0-1.1) Eosinophils # (Auto) 0.0x10^3/uL (0.0-0.7) Basophils # (Auto) 0.0x10^3/uL (0.0-0.2) Segmented Neutrophils % 95% (35-66) Band Neutrophils % 3% (0-9) Lymphocytes % 1% (24-48) Monocytes % 1% (0-10) Platelet Estimate Adequate (ADEQUATE) Anisocytosis Present Sodium Level 146mmol/L (136-145) Potassium Level 4.5mmol/L (3.5-5.1) Chloride Level 104mmol/L (98-107) Carbon Dioxide Level 37mmol/L (21-32) Anion Gap 5 (6-14) Blood Urea Nitrogen 19mg/dL (7-20) Creatinine 0.5mg/dL (0.6-1.0) Estimated GFR (Cockcroft-Gault) 125.9 Glucose Level 119mg/dL (70-99) Calcium Level 9.5mg/dL (8.5-10.1) Triglycerides Level 100mg/dL (0-150) Cholesterol Level 149mg/dL (0-200) LDL Cholesterol, Calculated 64mg/dL (0-100) VLDL Cholesterol, Calculated 20mg/dL (0-40) HDL Cholesterol 65mg/dL (40-60) Cholesterol/HDL Ratio 2.3 O2 Saturation 92% (92-99) Arterial Blood pH 7.29 (7.35-7.45) Arterial Blood pCO2 at Patient Temp 81mmHg (35-46) Arterial Blood pO2 at Patient Temp 70mmHg (65-108) Arterial Blood HCO3 38mmol/L (21-28) Arterial Blood Base Excess 9mmol/L (-3-3) FiO2 35% Test 05/31/16 14:31 06/01/16 08:30 06/01/16 13:10 O2 Saturation 92% (92-99) 96% (92-99) 94% (92-99) Arterial Blood pH 7.33 (7.35-7.45) 7.25 (7.35-7.45) 7.30 (7.35-7.45) Arterial Blood pCO2 at Patient Temp 75mmHg (35-46) 105mmHg (35-46) 74mmHg (35-46) Arterial Blood pO2 at Patient Temp 65mmHg (65-108) 99mmHg (65-108) 73mmHg (65-108) Arterial Blood HCO3 39mmol/L (21-28) 45mmol/L (21-28) 35mmol/L (21-28) Arterial Blood Base Excess 10mmol/L (-3-3) 13mmol/L (-3-3) 6mmol/L (-3-3) FiO2 40 40 30 Laboratory Tests Test 05/31/16 14:31 06/01/16 08:30 06/01/16 13:10 O2 Saturation 92% (92-99) 96% (92-99) 94% (92-99) Arterial Blood pH 7.33 (7.35-7.45) 7.25 (7.35-7.45) 7.30 (7.35-7.45) Arterial Blood pCO2 at Patient Temp 75mmHg (35-46) 105mmHg (35-46) 74mmHg (35-46) Arterial Blood pO2 at Patient Temp 65mmHg (65-108) 99mmHg (65-108) 73mmHg (65-108) Arterial Blood HCO3 39mmol/L (21-28) 45mmol/L (21-28) 35mmol/L (21-28) Arterial Blood Base Excess 10mmol/L (-3-3) 13mmol/L (-3-3) 6mmol/L (-3-3) FiO2 40 40 30 Medications Active Scripts Medications Dose Route/Sig Days Date Category Calcium (Calcium Carbonate) 500 Mg Tab.chew 500 Mg PO 05/30/16 Reported Multivitamins (Multivitamin) 1 Each Capsule 1 Each PO 05/30/16 Reported Folic Acid 1 Mg Tablet 1 Tab PO DAILY 05/30/16 Reported Myrbetriq (Mirabegron) 25 Mg Tab.er.24h 25 Mg PO DAILY 05/30/16 Reported Isosorbide Mononitrate 20 Mg Tablet 60 Mg PO DAILY 05/30/16 Reported Probiotic (Lactobacillus Combo No.11) 1 Each Cap.sprink 1 Each PO DAILY 05/30/16 Reported Fish Oil ([place]-3 Fatty Acids) 300 Mg Capsule 1,200 Mg PO BID 05/30/16 Reported Crestor (Rosuvastatin Calcium) 40 Mg Tablet 1 Tab PO DAILY 05/30/16 Reported Aspir 81 (Aspirin) 81 Mg Tablet.dr 1 Tab PO DAILY 05/30/16 Reported Advair 250-50 Diskus (Fluticasone/Salmeterol) 1 Each Disk.w.dev 1 Puff IH BID 05/30/16 Reported Plavix (Clopidogrel Bisulfate) 75 Mg Tablet 75 Mg PO DAILY 02/28/16 Reported Atenolol 25 Mg Tablet 25 Mg PO DAILY 02/28/16 Reported Mirapex (Pramipexole Di-Hcl) 0.25 Mg Tablet 0.25 Mg PO 02/28/16 Reported Oxycodone Hcl 10 Mg Tablet 10 Mg PO PRN 02/28/16 Reported Spiriva (Tiotropium [place]) 18 Mcg Cap.w.dev 2 Inh IH DAILY 02/28/16 Reported Albuterol Sulfate Oral Syrup (Albuterol Sulfate) 2 Mg/5 Ml Syrup 4 Mg PO QID 02/28/16 Reported Meloxicam 7.5 Mg Tablet 7.5 Mg PO DAILY 02/28/16 Reported Prilosec Otc (Omeprazole Magnesium) 20 Mg Tablet.dr 20 Mg PO DAILY 02/28/16 Reported Famotidine 20 Mg Tablet 20 Mg PO BID 02/28/16 Reported Impression . 1. Efbet-ar-ixonofk hypercapnic and hypoxic respiratory failure secondary to acute exacerbation of chronic obstructive pulmonary disease and bibasilar pneumonia and Narcotics 2. Abnormal chest x-ray with bibasilar interstitial infiltrates. Clinically, I suspect pneumonia and less likely congestive heart failure. 3. Underlying severe chronic obstructive pulmonary disease, which is oxygen dependent and uses Trilogy ventilator at nighttime. 4. Ongoing tobacco consumption. Plan . 1. We will continue with present BiPAP, adjust IPAP and rate and minimize FIO2 ,follow ABGs as ordered. 2. Hold off on Trilogy ventilator at nighttime. 3. Continue with DuoNeb. 4. Continue with IV Solu-Medrol. 5. Continue with present empiric antibiotics. 6. Noncontrast CT chest reviewed. Suspect fine reticular markings related to acute pneumonitis rather then fibrosis 7. Deep venous thrombosis prophylaxis. 8. Stress ulcer prophylaxis. 9. Discussed with RN and RT. 10. off narcotics PRERNA CALHOUN MD Jun 01, 2016 13:45
[2016-06-01] MEDS: BUTORPHANOL 2 MG VIAL. IV PRN ×2 (14:36→20:21)
[2016-06-01] MEDS: ENOXAPARIN 40 MG/0.4 ML DISP.SYRIN. SQ SCH (14:37)
[2016-06-01] MEDS: ALPRAZOLAM 0.25 MG TABLET PO PRN ×2 (14:38→19:56)
[2016-06-01] MEDS: AA 4.25%/CALCIUM/LYTES/D5W 1,000 ML IV SCH (17:10)
[2016-06-01 19:45] LABS: PH ABG 7.33 (7.35-7.45)
[2016-06-01 19:46] LABS: FIO2 ABG 40; HCO3 ABG 36 mmol/L (21-28); PCO2 ABG 70 mmHg (35-46); PO2 ABG 57 mmHg (65-108); SAT O2 ABG 88 % (92-99)
[2016-06-01] MEDS: PRAMIPEXOLE 0.25 MG TABLET. PO SCH (20:40)
[2016-06-01] MEDS: ATORVASTATIN CALCIUM 40 MG TABLET. PO SCH (20:41)
[2016-06-02] VITALS (24 sets, daily range): BP systolic 103–177; BP diastolic 52–83
[2016-06-02] MEDS: IPRATRPIUM/ALBUTEROL 0.5/2.5MG 3 ML NEBU. NEB SCH ×6 (03:35→23:37)
[2016-06-02] MEDS: methylPREDNISolone SOD SUCC PF 40 MG/ML VIAL. IV SCH ×3 (05:57→20:36)
[2016-06-02 06:28] LABS: BASO % 0 % (0-3); EOS % 0 % (0-3); HEMATOCRIT 36.4 % (36.0-47.0); HEMOGLOBIN 11.3 g/dL (12.0-15.5); LYMPH # 0.5 x10^3/uL (1.0-4.8); LYMPH % 6 % (24-48); MEAN CORPUSCULAR HEMOGLOBIN 27 pg (25-35); MEAN CORPUSCULAR HGB CONC 31 g/dL (31-37); MEAN CORPUSCULAR VOLUME 86 fL (79-100); MONO % 8 % (0-9); NEUT % 87 % (31-73); PLATELET COUNT 319 x10^3/uL (140-400); RED BLOOD COUNT 4.24 x10^6/uL (3.50-5.40); RED CELL DISTRIBUTION WIDTH 17.4 % (11.5-14.5); WHITE BLOOD COUNT 8.7 x10^3/uL (4.0-11.0)
[2016-06-02 06:38] LABS: CALCIUM 9.9 mg/dL (8.5-10.1); CREATININE 0.6 mg/dL (0.6-1.0); POTASSIUM 4.2 mmol/L (3.5-5.1)
[2016-06-02] MEDS: BUDESONIDE 0.5 MG/2 ML NEBU NEB SCH ×2 (07:48→20:11)
[2016-06-02] MEDS: LACTOBACILLUS ACIDOPH & BULGAR 1 TABLET. PO SCH (07:52)
[2016-06-02] MEDS: FOLIC ACID 1 MG TABLET PO SCH (07:52)
[2016-06-02] MEDS: ATENOLOL 25 MG TABLET PO SCH (07:55)
[2016-06-02] MEDS: FAMOTIDINE 20 MG TABLET. PO SCH ×2 (07:56→20:35)
[2016-06-02] MEDS: MELOXICAM 7.5 MG TABLET PO SCH (07:56)
[2016-06-02] MEDS: ALPRAZOLAM 0.25 MG TABLET PO PRN ×2 (07:57→20:35)
[2016-06-02] MEDS: MIRABEGRON 25 MG TAB.ER.24H PO SCH (07:57)
[2016-06-02] MEDS: ASPIRIN ENTERIC COATED 81 MG TABLET.DR. PO SCH (07:57)
[2016-06-02] MEDS: OMEGA-3 FATTY ACIDS/FISH OIL 1,000 MG CAPSULE. PO SCH (07:57)
[2016-06-02] MEDS: DOCUSATE SODIUM 100 MG CAPSULE PO SCH (07:57)
[2016-06-02] MEDS: CLOPIDOGREL BISULFATE 75 MG TABLET PO SCH (07:57)
[2016-06-02] MEDS: ENOXAPARIN 40 MG/0.4 ML DISP.SYRIN. SQ SCH (07:58)
[2016-06-02] MEDS: CEFTRIAXONE SODIUM 1 GM in IV NORMAL SALINE 100ML 100 ML IV SCH (07:59)
[2016-06-02 08:11] LABS: HCO3 ABG 41 mmol/L (21-28); PH ABG 7.37 (7.35-7.45); PO2 ABG 71 mmHg (65-108); SAT O2 ABG 93 % (92-99)
[2016-06-02 08:13] LABS: PCO2 ABG 72 mmHg (35-46)
--- NOTE | 2016-06-02 09:12 | PDOC ---
PULMONARY PROGRESS NOTES Subjective On BIPAP ABG improved Vitals Vital Signs Date Time Temp Pulse Resp B/P Pulse Ox O2 Delivery O2 Flow Rate FiO2 06/02/16 07:55 103 173/85 06/02/16 07:48 96 BiPAP/CPAP 06/02/16 07:00 26 06/02/16 05:00 97.2 97.2 General: Alert, No acute distress Lungs: Other (poor air entry) Cardiovascular: S1 Abdomen: Soft Neuro Exam: Alert Extremities: No Edema Skin: Warm Labs Laboratory Tests Test 05/31/16 14:31 06/01/16 08:30 06/01/16 13:10 06/01/16 19:18 O2 Saturation 92% (92-99) 96% (92-99) 94% (92-99) 88% (92-99) Arterial Blood pH 7.33 (7.35-7.45) 7.25 (7.35-7.45) 7.30 (7.35-7.45) 7.33 (7.35-7.45) Arterial Blood pCO2 at Patient Temp 75mmHg (35-46) 105mmHg (35-46) 74mmHg (35-46) 70mmHg (35-46) Arterial Blood pO2 at Patient Temp 65mmHg (65-108) 99mmHg (65-108) 73mmHg (65-108) 57mmHg (65-108) Arterial Blood HCO3 39mmol/L (21-28) 45mmol/L (21-28) 35mmol/L (21-28) 36mmol/L (21-28) Arterial Blood Base Excess 10mmol/L (-3-3) 13mmol/L (-3-3) 6mmol/L (-3-3) 8mmol/L (-3-3) FiO2 40 40 30 40 Test 06/02/16 05:45 06/02/16 07:45 White Blood Count 8.7x10^3/uL (4.0-11.0) Red Blood Count 4.24x10^6/uL (3.50-5.40) Hemoglobin 11.3g/dL (12.0-15.5) Hematocrit 36.4% (36.0-47.0) Mean Corpuscular Volume 86fL (79-100) Mean Corpuscular Hemoglobin 27pg (25-35) Mean Corpuscular Hemoglobin Concent 31g/dL (31-37) Red Cell Distribution Width 17.4% (11.5-14.5) Platelet Count 319x10^3/uL (140-400) Neutrophils (%) (Auto) 87% (31-73) Lymphocytes (%) (Auto) 6% (24-48) Monocytes (%) (Auto) 8% (0-9) Eosinophils (%) (Auto) 0% (0-3) Basophils (%) (Auto) 0% (0-3) Neutrophils # (Auto) 7.6x10^3uL (1.8-7.7) Lymphocytes # (Auto) 0.5x10^3/uL (1.0-4.8) Monocytes # (Auto) 0.7x10^3/uL (0.0-1.1) Eosinophils # (Auto) 0.0x10^3/uL (0.0-0.7) Basophils # (Auto) 0.0x10^3/uL (0.0-0.2) Sodium Level 147mmol/L (136-145) Potassium Level 4.2mmol/L (3.5-5.1) Chloride Level 103mmol/L (98-107) Carbon Dioxide Level 43mmol/L (21-32) Anion Gap 1 (6-14) Blood Urea Nitrogen 22mg/dL (7-20) Creatinine 0.6mg/dL (0.6-1.0) Estimated GFR (Cockcroft-Gault) 102.0 Glucose Level 136mg/dL (70-99) Calcium Level 9.9mg/dL (8.5-10.1) O2 Saturation 93% (92-99) Arterial Blood pH 7.37 (7.35-7.45) Arterial Blood pCO2 at Patient Temp 72mmHg (35-46) Arterial Blood pO2 at Patient Temp 71mmHg (65-108) Arterial Blood HCO3 41mmol/L (21-28) Arterial Blood Base Excess 13mmol/L (-3-3) Laboratory Tests Test 06/01/16 13:10 06/01/16 19:18 06/02/16 05:45 06/02/16 07:45 O2 Saturation 94% (92-99) 88% (92-99) 93% (92-99) Arterial Blood pH 7.30 (7.35-7.45) 7.33 (7.35-7.45) 7.37 (7.35-7.45) Arterial Blood pCO2 at Patient Temp 74mmHg (35-46) 70mmHg (35-46) 72mmHg (35-46) Arterial Blood pO2 at Patient Temp 73mmHg (65-108) 57mmHg (65-108) 71mmHg (65-108) Arterial Blood HCO3 35mmol/L (21-28) 36mmol/L (21-28) 41mmol/L (21-28) Arterial Blood Base Excess 6mmol/L (-3-3) 8mmol/L (-3-3) 13mmol/L (-3-3) FiO2 30 40 White Blood Count 8.7x10^3/uL (4.0-11.0) Red Blood Count 4.24x10^6/uL (3.50-5.40) Hemoglobin 11.3g/dL (12.0-15.5) Hematocrit 36.4% (36.0-47.0) Mean Corpuscular Volume 86fL (79-100) Mean Corpuscular Hemoglobin 27pg (25-35) Mean Corpuscular Hemoglobin Concent 31g/dL (31-37) Red Cell Distribution Width 17.4% (11.5-14.5) Platelet Count 319x10^3/uL (140-400) Neutrophils (%) (Auto) 87% (31-73) Lymphocytes (%) (Auto) 6% (24-48) Monocytes (%) (Auto) 8% (0-9) Eosinophils (%) (Auto) 0% (0-3) Basophils (%) (Auto) 0% (0-3) Neutrophils # (Auto) 7.6x10^3uL (1.8-7.7) Lymphocytes # (Auto) 0.5x10^3/uL (1.0-4.8) Monocytes # (Auto) 0.7x10^3/uL (0.0-1.1) Eosinophils # (Auto) 0.0x10^3/uL (0.0-0.7) Basophils # (Auto) 0.0x10^3/uL (0.0-0.2) Sodium Level 147mmol/L (136-145) Potassium Level 4.2mmol/L (3.5-5.1) Chloride Level 103mmol/L (98-107) Carbon Dioxide Level 43mmol/L (21-32) Anion Gap 1 (6-14) Blood Urea Nitrogen 22mg/dL (7-20) Creatinine 0.6mg/dL (0.6-1.0) Estimated GFR (Cockcroft-Gault) 102.0 Glucose Level 136mg/dL (70-99) Calcium Level 9.9mg/dL (8.5-10.1) Medications Active Scripts Medications Dose Route/Sig Days Date Category Calcium (Calcium Carbonate) 500 Mg Tab.chew 500 Mg PO 05/30/16 Reported Multivitamins (Multivitamin) 1 Each Capsule 1 Each PO 05/30/16 Reported Folic Acid 1 Mg Tablet 1 Tab PO DAILY 05/30/16 Reported Myrbetriq (Mirabegron) 25 Mg Tab.er.24h 25 Mg PO DAILY 05/30/16 Reported Isosorbide Mononitrate 20 Mg Tablet 60 Mg PO DAILY 05/30/16 Reported Probiotic (Lactobacillus Combo No.11) 1 Each Cap.sprink 1 Each PO DAILY 05/30/16 Reported Fish Oil ([place]-3 Fatty Acids) 300 Mg Capsule 1,200 Mg PO BID 05/30/16 Reported Crestor (Rosuvastatin Calcium) 40 Mg Tablet 1 Tab PO DAILY 05/30/16 Reported Aspir 81 (Aspirin) 81 Mg Tablet.dr 1 Tab PO DAILY 05/30/16 Reported Advair 250-50 Diskus (Fluticasone/Salmeterol) 1 Each Disk.w.dev 1 Puff IH BID 05/30/16 Reported Plavix (Clopidogrel Bisulfate) 75 Mg Tablet 75 Mg PO DAILY 02/28/16 Reported Atenolol 25 Mg Tablet 25 Mg PO DAILY 02/28/16 Reported Mirapex (Pramipexole Di-Hcl) 0.25 Mg Tablet 0.25 Mg PO 02/28/16 Reported Oxycodone Hcl 10 Mg Tablet 10 Mg PO PRN 02/28/16 Reported Spiriva (Tiotropium [place]) 18 Mcg Cap.w.dev 2 Inh IH DAILY 02/28/16 Reported Albuterol Sulfate Oral Syrup (Albuterol Sulfate) 2 Mg/5 Ml Syrup 4 Mg PO QID 02/28/16 Reported Meloxicam 7.5 Mg Tablet 7.5 Mg PO DAILY 02/28/16 Reported Prilosec Otc (Omeprazole Magnesium) 20 Mg Tablet.dr 20 Mg PO DAILY 02/28/16 Reported Famotidine 20 Mg Tablet 20 Mg PO BID 02/28/16 Reported Impression . 1. [id number] hypercapnic and hypoxic respiratory failure secondary to acute exacerbation of chronic obstructive pulmonary disease and bibasilar pneumonia and Narcotics 2. Abnormal chest x-ray with bibasilar interstitial infiltrates. Clinically, I suspect pneumonia and less likely congestive heart failure. 3. Underlying severe chronic obstructive pulmonary disease, which is oxygen dependent and uses Trilogy ventilator at nighttime. 4. Ongoing tobacco consumption. Plan . 1. try off BiPAP, use VM during day 2. Can use Trilogy ventilator at nighttime. 3. Continue with DuoNeb. 4. Continue with IV Solu-Medrol./taper 5. Continue with present empiric antibiotics. 6. Noncontrast CT chest reviewed. Suspect fine reticular markings related to acute pneumonitis rather then fibrosis 7. Deep venous thrombosis prophylaxis. 8. Stress ulcer prophylaxis. 9. Discussed with RN and RT. 10. off narcotics PRERNA CALHOUN MD Jun 02, 2016 09:12
[2016-06-02] MEDS ORDERED: FENTANYL 25MCG/HR PATCH. TD ONE (09:30)
[2016-06-02] MEDS ORDERED: FENTANYL PF 100 MCG/2 ML VIAL. IV ONE (09:30)
--- NOTE | 2016-06-02 12:17 | PDOC ---
PROGRESS NOTES Chief Complaint Chief Complaint 1. Acute hypercapnic hypoxic respiratory failure present on admission. 2. Chronic respiratory failure. 3. Chronic obstructive pulmonary disease. 4. Prior history of coronary artery disease with mild elevation of troponins. 5. Hypertension. 6. Hyperlipidemia. 7. Leukocytosis. History of Present Illness History of Present Illness Pt awake awake and able to non-verbally communicate through BiPAP mask. Pt doing better. ABG improving. No fever or chills. Family member present and at bedside. VSS- All questions and concerns answered and addressed. On BiPAP with 33% FIO2 Vitals Vitals Vital Signs Date Time Temp Pulse Resp B/P Pulse Ox O2 Delivery O2 Flow Rate FiO2 06/02/16 11:23 96 BiPAP/CPAP 06/02/16 11:00 94 31 107/57 06/02/16 09:56 40.0 06/02/16 08:00 97.8 97.8 Physical Exam General: Alert, Cooperative, No acute distress Heart: Regular rate, Normal S1, Normal S2 Lungs: Other (poor air entry) Abdomen: Normal bowel sounds, Soft, No tenderness Extremities: No clubbing, No cyanosis, No edema, Normal pulses Skin: No rashes, No breakdown, No significant lesion Labs LABS Laboratory Tests Test 06/01/16 13:10 06/01/16 19:18 06/02/16 05:45 06/02/16 07:45 O2 Saturation 94% (92-99) 88% (92-99) 93% (92-99) Arterial Blood pH 7.30 (7.35-7.45) 7.33 (7.35-7.45) 7.37 (7.35-7.45) Arterial Blood pCO2 at Patient Temp 74mmHg (35-46) 70mmHg (35-46) 72mmHg (35-46) Arterial Blood pO2 at Patient Temp 73mmHg (65-108) 57mmHg (65-108) 71mmHg (65-108) Arterial Blood HCO3 35mmol/L (21-28) 36mmol/L (21-28) 41mmol/L (21-28) Arterial Blood Base Excess 6mmol/L (-3-3) 8mmol/L (-3-3) 13mmol/L (-3-3) FiO2 30 40 White Blood Count 8.7x10^3/uL (4.0-11.0) Red Blood Count 4.24x10^6/uL (3.50-5.40) Hemoglobin 11.3g/dL (12.0-15.5) Hematocrit 36.4% (36.0-47.0) Mean Corpuscular Volume 86fL (79-100) Mean Corpuscular Hemoglobin 27pg (25-35) Mean Corpuscular Hemoglobin Concent 31g/dL (31-37) Red Cell Distribution Width 17.4% (11.5-14.5) Platelet Count 319x10^3/uL (140-400) Neutrophils (%) (Auto) 87% (31-73) Lymphocytes (%) (Auto) 6% (24-48) Monocytes (%) (Auto) 8% (0-9) Eosinophils (%) (Auto) 0% (0-3) Basophils (%) (Auto) 0% (0-3) Neutrophils # (Auto) 7.6x10^3uL (1.8-7.7) Lymphocytes # (Auto) 0.5x10^3/uL (1.0-4.8) Monocytes # (Auto) 0.7x10^3/uL (0.0-1.1) Eosinophils # (Auto) 0.0x10^3/uL (0.0-0.7) Basophils # (Auto) 0.0x10^3/uL (0.0-0.2) Sodium Level 147mmol/L (136-145) Potassium Level 4.2mmol/L (3.5-5.1) Chloride Level 103mmol/L (98-107) Carbon Dioxide Level 43mmol/L (21-32) Anion Gap 1 (6-14) Blood Urea Nitrogen 22mg/dL (7-20) Creatinine 0.6mg/dL (0.6-1.0) Estimated GFR (Cockcroft-Gault) 102.0 Glucose Level 136mg/dL (70-99) Calcium Level 9.9mg/dL (8.5-10.1) Review of Systems Review of Systems Complaint of hunger Complaint of fatigue Assessment and Plan Assessmemt and Plan Problems Medical Problems: (1) Respiratory failure Status: Acute Assessment: 1. Acute hypercapnic hypoxic respiratory failure present on admission. 2. Chronic respiratory failure. 3. Chronic obstructive pulmonary disease. 4. Prior history of coronary artery disease with mild elevation of troponins. 5. Hypertension. 6. Hyperlipidemia. 7. Leukocytosis. Plan: Continue to monitor the patient per ICU protocol Monitor daily labs- CBC, BMP, BUN and Cr, labs reviewed Monitor ABG, monitor WBC Limit narcotics and benzo Continue BiPAP at 33% FiO2 Continue current medical management Continue IV Rocephin and Zithromax Contine IV Solumedrol PPN Breathing treatments Continue Stadol PRN for pain and anxiety Discuss with RN and family Pulmonary and Cards following, appreciate all recommendations and input Problems: Comment Review of Relevant I have reviewed the following items afshin (where applicable) has been applied. Labs Laboratory Tests Test 05/31/16 14:31 06/01/16 08:30 06/01/16 13:10 06/01/16 19:18 O2 Saturation 92% (92-99) 96% (92-99) 94% (92-99) 88% (92-99) Arterial Blood pH 7.33 (7.35-7.45) 7.25 (7.35-7.45) 7.30 (7.35-7.45) 7.33 (7.35-7.45) Arterial Blood pCO2 at Patient Temp 75mmHg (35-46) 105mmHg (35-46) 74mmHg (35-46) 70mmHg (35-46) Arterial Blood pO2 at Patient Temp 65mmHg (65-108) 99mmHg (65-108) 73mmHg (65-108) 57mmHg (65-108) Arterial Blood HCO3 39mmol/L (21-28) 45mmol/L (21-28) 35mmol/L (21-28) 36mmol/L (21-28) Arterial Blood Base Excess 10mmol/L (-3-3) 13mmol/L (-3-3) 6mmol/L (-3-3) 8mmol/L (-3-3) FiO2 40 40 30 40 Test 06/02/16 05:45 06/02/16 07:45 White Blood Count 8.7x10^3/uL (4.0-11.0) Red Blood Count 4.24x10^6/uL (3.50-5.40) Hemoglobin 11.3g/dL (12.0-15.5) Hematocrit 36.4% (36.0-47.0) Mean Corpuscular Volume 86fL (79-100) Mean Corpuscular Hemoglobin 27pg (25-35) Mean Corpuscular Hemoglobin Concent 31g/dL (31-37) Red Cell Distribution Width 17.4% (11.5-14.5) Platelet Count 319x10^3/uL (140-400) Neutrophils (%) (Auto) 87% (31-73) Lymphocytes (%) (Auto) 6% (24-48) Monocytes (%) (Auto) 8% (0-9) Eosinophils (%) (Auto) 0% (0-3) Basophils (%) (Auto) 0% (0-3) Neutrophils # (Auto) 7.6x10^3uL (1.8-7.7) Lymphocytes # (Auto) 0.5x10^3/uL (1.0-4.8) Monocytes # (Auto) 0.7x10^3/uL (0.0-1.1) Eosinophils # (Auto) 0.0x10^3/uL (0.0-0.7) Basophils # (Auto) 0.0x10^3/uL (0.0-0.2) Sodium Level 147mmol/L (136-145) Potassium Level 4.2mmol/L (3.5-5.1) Chloride Level 103mmol/L (98-107) Carbon Dioxide Level 43mmol/L (21-32) Anion Gap 1 (6-14) Blood Urea Nitrogen 22mg/dL (7-20) Creatinine 0.6mg/dL (0.6-1.0) Estimated GFR (Cockcroft-Gault) 102.0 Glucose Level 136mg/dL (70-99) Calcium Level 9.9mg/dL (8.5-10.1) O2 Saturation 93% (92-99) Arterial Blood pH 7.37 (7.35-7.45) Arterial Blood pCO2 at Patient Temp 72mmHg (35-46) Arterial Blood pO2 at Patient Temp 71mmHg (65-108) Arterial Blood HCO3 41mmol/L (21-28) Arterial Blood Base Excess 13mmol/L (-3-3) Laboratory Tests Test 06/01/16 13:10 06/01/16 19:18 06/02/16 05:45 06/02/16 07:45 O2 Saturation 94% (92-99) 88% (92-99) 93% (92-99) Arterial Blood pH 7.30 (7.35-7.45) 7.33 (7.35-7.45) 7.37 (7.35-7.45) Arterial Blood pCO2 at Patient Temp 74mmHg (35-46) 70mmHg (35-46) 72mmHg (35-46) Arterial Blood pO2 at Patient Temp 73mmHg (65-108) 57mmHg (65-108) 71mmHg (65-108) Arterial Blood HCO3 35mmol/L (21-28) 36mmol/L (21-28) 41mmol/L (21-28) Arterial Blood Base Excess 6mmol/L (-3-3) 8mmol/L (-3-3) 13mmol/L (-3-3) FiO2 30 40 White Blood Count 8.7x10^3/uL (4.0-11.0) Red Blood Count 4.24x10^6/uL (3.50-5.40) Hemoglobin 11.3g/dL (12.0-15.5) Hematocrit 36.4% (36.0-47.0) Mean Corpuscular Volume 86fL (79-100) Mean Corpuscular Hemoglobin 27pg (25-35) Mean Corpuscular Hemoglobin Concent 31g/dL (31-37) Red Cell Distribution Width 17.4% (11.5-14.5) Platelet Count 319x10^3/uL (140-400) Neutrophils (%) (Auto) 87% (31-73) Lymphocytes (%) (Auto) 6% (24-48) Monocytes (%) (Auto) 8% (0-9) Eosinophils (%) (Auto) 0% (0-3) Basophils (%) (Auto) 0% (0-3) Neutrophils # (Auto) 7.6x10^3uL (1.8-7.7) Lymphocytes # (Auto) 0.5x10^3/uL (1.0-4.8) Monocytes # (Auto) 0.7x10^3/uL (0.0-1.1) Eosinophils # (Auto) 0.0x10^3/uL (0.0-0.7) Basophils # (Auto) 0.0x10^3/uL (0.0-0.2) Sodium Level 147mmol/L (136-145) Potassium Level 4.2mmol/L (3.5-5.1) Chloride Level 103mmol/L (98-107) Carbon Dioxide Level 43mmol/L (21-32) Anion Gap 1 (6-14) Blood Urea Nitrogen 22mg/dL (7-20) Creatinine 0.6mg/dL (0.6-1.0) Estimated GFR (Cockcroft-Gault) 102.0 Glucose Level 136mg/dL (70-99) Calcium Level 9.9mg/dL (8.5-10.1) Microbiology 05/30/16 Blood Culture - Preliminary, Resulted NO GROWTH AFTER 3 DAYS Medications Current Medications Methylprednisolone Sodium Succinate (Solu-Medrol 125mg Vial) 125 mg 1X ONCE IV Last administered on 05/30/16 08:31; Start 05/30/16 at 07:45; Stop 05/30/16 at 07:52; Status DC Isosorbide Mononitrate (Imdur) 60 mg 1X ONCE PO Last administered on 09:02; Start 05/30/16 at 08:30; Stop 05/30/16 at 08:31; Status DC Albuterol/ Ipratropium 3 ml 3 ml 1X ONCE NEB Last administered on 05/30/16 08 :44; Start 05/30/16 at 08:30; Stop 05/30/16 at 08:31; Status DC Ceftriaxone Sodium 1 gm/ Sodium Chloride 100 ml @ 200 mls/hr Q24H IV Last administered on 06/02/16 07:59; Start 05/31/16 at 09:00 Azithromycin 500 mg/Sodium Chloride 250 ml @ 250 mls/hr Q24H IV Last administered on 06/01/16 09:14; Start 05/31/16 at 09:00; Stop 06/02/16 at 08:59 ; Status DC Azithromycin 250 ml @ 250 mls/hr 1X ONCE IV ; Start 05/30/16 at 09:15; Stop at 10:14; Status DC Ceftriaxone Sodium (Rocephin 1gm Ivpb For Omni) 50 ml @ 100 mls/hr 1X ONCE IV Last administered on 05/30/16 10:18; Start 05/30/16 at 09:15; Stop 05/30/16 at 09:44; Status DC Ondansetron HCl 4 mg 4 mg PRN Q8HRS PRN IV NAUSEA/VOMITING; Start 05/30/16 at 10:00; Stop 05/31/16 at 09:59; Status DC Sodium Chloride (Iv Sodium Chloride 0.9% 1000ml Bag) 1,000 ml @ 100 mls/hr Q10H IV ; Start 05/30/16 at 09:48; Stop 05/31/16 at 09:47; Status DC Acetaminophen (Tylenol) 650 mg PRN Q4HRS PRN PO FEVER; Start 05/30/16 at 10:00 ; Stop 05/31/16 at 09:59; Status DC Albuterol/ Ipratropium (Duoneb) 3 ml RTQID NEB Last administered on 05/30/16 10:50; Start 05/30/16 at 12:00; Stop 05/30/16 at 16:32; Status DC Methylprednisolone Sodium Succinate (Solu-Medrol 40mg Vial) 40 mg Q8HRS IV Last administered on 05/31/16 05:50; Start 05/30/16 at 14:00; Stop 05/31/16 at 10:27; Status DC Enoxaparin Sodium (Lovenox 40mg Syringe) 40 mg Q24H SQ Last administered on 07:58; Start 05/30/16 at 11:00 Clopidogrel Bisulfate (Plavix) 75 mg DAILY PO Last administered on 06/02/16 07 :57; Start 05/30/16 at 14:30 Aspirin (Ecotrin) 81 mg DAILYWBKFT PO Last administered on 06/02/16 07:57; Start 05/30/16 at 14:15 Atenolol (Tenormin) 25 mg DAILY PO Last administered on 06/02/16 07:55; Start 05/30/16 at 15:00 Aspirin (Ecotrin) 81 mg DAILY PO ; Start 05/31/16 at 09:00; Status UNV Famotidine (Pepcid) 20 mg BID PO Last administered on 06/02/16 07:56; Start at 21:00 Folic Acid (Folic Acid) 1 mg DAILY PO Last administered on 06/02/16 07:52; Start 05/31/16 at 09:00 Isosorbide Mononitrate (Imdur) 60 mg DAILY PO Last administered on 06/01/16 09 :12; Start 05/31/16 at 09:00 Meloxicam (Mobic) 7.5 mg DAILY PO Last administered on 06/02/16 07:56; Start 05/31/16 at 09:00 Mirabegron (Myrbetriq) 25 mg DAILY PO Last administered on 06/02/16 07:57; Start 05/31/16 at 09:00 Budesonide (Pulmicort) 0.5 mg RTBID NEB Last administered on 06/02/16 07:48; Start 05/30/16 at 20:00 Lactobacillus Acidophilus (Bacid, Christa-Bid) 1 tab DAILY PO Last administered on 06/02/16 07:52; Start 05/31/16 at 09:00 Fish Oil (Fish Oil) 1,000 mg DAILY PO Last administered on 06/02/16 07:57; Start 05/31/16 at 09:00 Atorvastatin Calcium (Lipitor) 80 mg QHS PO Last administered on 06/01/16 20: 41; Start 05/30/16 at 21:00 Albuterol/ Ipratropium (Duoneb) 3 ml RTQID NEB Last administered on 05/31/16 07:19; Start 05/30/16 at 20:00; Stop 05/31/16 at 10:27; Status DC Oxycodone HCl (Roxicodone) 10 mg PRN Q6HRS PRN PO PAIN Last administered on 04:36; Start 05/30/16 at 18:00; Stop 05/31/16 at 10:28; Status DC Ketorolac Tromethamine (Toradol) 30 mg PRN Q6HRS PRN IV PAIN; Start 05/30/16 at 19:15; Stop 05/31/16 at 12:38; Status DC Albuterol/ Ipratropium (Duoneb) 3 ml Q4HRS NEB Last administered on 06/02/16 11:22; Start 05/31/16 at 12:00 Methylprednisolone Sodium Succinate 60 mg 60 mg Q8HRS IV Last administered on 05:57; Start 05/31/16 at 14:00 Amino Acids/ Electrolytes (Clinimix E 2.75%-5% Solution) 1,000 ml @ 50 mls/hr Q20H IV Last administered on 05/31/16 13:27; Start 05/31/16 at 12:00; Stop at 16:43; Status DC Docusate Sodium (Colace) 100 mg DAILY PO Last administered on 06/02/16 07:57; Start 05/31/16 at 11:30 Pramipexole Dihydrochloride (miraPEX) 0.5 mg ONCE ONCE PO Last administered on 05/31/16 20:40; Start 05/31/16 at 19:57; Stop 05/31/16 at 19:58; Status DC Pramipexole Dihydrochloride (miraPEX) 0.25 mg QHS PO Last administered on 20:40; Start 06/01/16 at 21:00 Acetaminophen (Tylenol) 650 mg PRN Q6HRS PRN PO MILD PAIN / TEMP Last administered on 06/01/16 09:12; Start 06/01/16 at 02:45 Alprazolam (Xanax) 0.25 mg 1X ONCE PO Last administered on 06/01/16 09:37; Start 06/01/16 at 10:00; Stop 06/01/16 at 10:01; Status DC Butorphanol Tartrate (Stadol) 1 mg PRN Q6HRS PRN IV PAIN Last administered on 20:21; Start 06/01/16 at 10:45 Alprazolam 0.25 mg 0.25 mg PRN BID PRN PO ANXIETY / AGITATION Last administered on 06/02/16 07:57; Start 06/01/16 at 13:45 Amino Acids/ Electrolytes/ Dextrose (Clinimix E 4.25%-5% Solution) 1,000 ml @ 50 mls/hr Q20H IV Last administered on 06/01/16 17:10; Start 06/01/16 at 17:00 Fentanyl (Duragesic 25mcg/ Hr Patch) 1 patch 1X ONCE TD Last administered on 09:56; Start 06/02/16 at 09:30; Stop 06/02/16 at 09:31; Status DC Fentanyl Citrate (Fentanyl 2ml Vial) 25 mcg 1X ONCE IV Last administered on 09:46; Start 06/02/16 at 09:30; Stop 06/02/16 at 09:31; Status DC Active Scripts Active Reported Calcium (Calcium Carbonate) 500 Mg Tab.chew 500 Mg PO Multivitamins (Multivitamin) 1 Each Capsule 1 Each PO Folic Acid 1 Mg Tablet 1 Tab PO DAILY Myrbetriq (Mirabegron) 25 Mg Tab.er.24h 25 Mg PO DAILY Isosorbide Mononitrate 20 Mg Tablet 60 Mg PO DAILY Probiotic (Lactobacillus Combo No.11) 1 Each Cap.sprink 1 Each PO DAILY Fish Oil ([place]-3 Fatty Acids) 300 Mg Capsule 1,200 Mg PO BID Crestor (Rosuvastatin Calcium) 40 Mg Tablet 1 Tab PO DAILY Aspir 81 (Aspirin) 81 Mg Tablet. 1 Tab PO DAILY Advair 250-50 Diskus (Fluticasone/Salmeterol) 1 Each Disk.w.dev 1 Puff IH BID Plavix (Clopidogrel Bisulfate) 75 Mg Tablet 75 Mg PO DAILY Atenolol 25 Mg Tablet 25 Mg PO DAILY Mirapex (Pramipexole Di-Hcl) 0.25 Mg Tablet 0.25 Mg PO Oxycodone Hcl 10 Mg Tablet 10 Mg PO PRN Spiriva (Tiotropium [place]) 18 Mcg Cap.w.dev 2 Inh IH DAILY Albuterol Sulfate Oral Syrup (Albuterol Sulfate) 2 Mg/5 Ml Syrup 4 Mg PO QID Meloxicam 7.5 Mg Tablet 7.5 Mg PO DAILY Prilosec Otc (Omeprazole Magnesium) 20 Mg Tablet. 20 Mg PO DAILY Famotidine 20 Mg Tablet 20 Mg PO BID Vitals/I & O Vital Sign - Last 24 Hours 06/01/16 06/01/16 06/01/16 06/01/16 13:00 14:00 14:36 15:00 Pulse 82 84 74 Resp B/P 105/50 131/66 104/59 Pulse Ox 96 88 88 87 O2 Delivery BiPAP/CPAP BiPAP/CPAP BiPAP/CPAP BiPAP/CPAP 06/01/16 06/01/16 06/01/16 06/01/16 16:00 16:00 16:25 18:00 Temp 97.8 97.8 Pulse 76 74 Resp B/P 99/47 124/53 Pulse Ox 91 100 87 O2 Delivery BiPAP/CPAP Bi-pap BiPAP/CPAP BiPAP/CPAP 06/01/16 06/01/16 06/01/16 06/01/16 19:00 20:00 20:00 20:00 Temp 96.9 96.9 Pulse 84 90 Resp 30 B/P 128/63 172/88 Pulse Ox 88 88 100 O2 Delivery BiPAP/CPAP BiPAP/CPAP Bi-pap BiPAP/CPAP 06/01/16 06/01/16 06/01/16 06/01/16 20:21 20:50 21:00 22:00 Pulse 110 99 Resp 30 28 25 B/P 157/73 170/72 Pulse Ox 99 94 94 88 O2 Delivery BiPAP/CPAP BiPAP/CPAP BiPAP/CPAP BiPAP/CPAP 06/01/16 06/01/16 06/02/16 06/02/16 22:31 23:00 00:00 00:00 Pulse 90 86 Resp 25 26 B/P 149/67 144/61 Pulse Ox 91 96 95 O2 Delivery BiPAP/CPAP BiPAP/CPAP Bi-pap BiPAP/CPAP 06/02/16 06/02/16 06/02/16 06/02/16 01:00 01:38 02:00 03:00 Pulse 84 84 91 Resp 26 33 B/P 121/55 142/67 150/62 Pulse Ox 95 95 95 96 O2 Delivery BiPAP/CPAP BiPAP/CPAP BiPAP/CPAP BiPAP/CPAP 06/02/16 06/02/16 06/02/16 06/02/16 03:35 04:00 04:00 05:00 Pulse 99 Resp 26 B/P 169/78 Pulse Ox 96 96 95 O2 Delivery BiPAP/CPAP BiPAP/CPAP Bi-pap BiPAP/CPAP 06/02/16 06/02/16 06/02/16 06/02/16 05:00 06:00 07:00 07:48 Temp 97.2 97.2 Pulse 99 95 86 Resp B/P 177/83 145/79 107/55 Pulse Ox 96 96 97 96 O2 Delivery BiPAP/CPAP BiPAP/CPAP BiPAP/CPAP BiPAP/CPAP 06/02/16 06/02/16 06/02/16 06/02/16 07:55 08:00 08:00 09:00 Temp 97.8 97.8 Pulse 103 96 124 Resp 21 B/P 173/85 156/78 166/77 Pulse Ox 96 100 O2 Delivery BiPAP/CPAP Bi-pap BiPAP/CPAP 06/02/16 06/02/16 06/02/16 06/02/16 09:46 09:56 10:00 10:00 Pulse 97 Resp B/P 131/63 Pulse Ox 98 95 97 92 O2 Delivery BiPAP/CPAP BiPAP/CPAP BiPAP/CPAP BiPAP/CPAP O2 Flow Rate 40.0 40.0 06/02/16 06/02/16 11:00 11:23 Pulse 94 Resp 31 B/P 107/57 Pulse Ox 92 96 O2 Delivery BiPAP/CPAP BiPAP/CPAP Intake and Output 06/01/16 06/01/16 06/02/16 15:00 23:00 07:00 Intake Total 350 ml 501.53 ml 898 ml Output Total 250 ml 1250 ml Balance 350 ml 251.53 ml -352 ml GRACE DAVISON III DO Jun 02, 2016 12:17
[2016-06-02] MEDS: ISOSORBIDE MONONITRATE ER 60 MG TAB.ER.24H PO SCH (13:36)
[2016-06-02] MEDS: AA 4.25%/CALCIUM/LYTES/D5W 1,000 ML IV SCH (14:08)
[2016-06-02 16:03] LABS: HCO3 ABG 42 mmol/L (21-28); PH ABG 7.36 (7.35-7.45); PO2 ABG 82 mmHg (65-108); SAT O2 ABG 95 % (92-99)
[2016-06-02 16:08] LABS: FIO2 ABG 33; PCO2 ABG 77 mmHg (35-46)
[2016-06-02] MEDS: ATORVASTATIN CALCIUM 40 MG TABLET. PO SCH (20:35)
[2016-06-02] MEDS: PRAMIPEXOLE 0.25 MG TABLET. PO SCH (20:35)
[2016-06-03] VITALS (24 sets, daily range): BP systolic 106–171; BP diastolic 51–91
[2016-06-03] MEDS: IPRATRPIUM/ALBUTEROL 0.5/2.5MG 3 ML NEBU. NEB SCH ×6 (03:24→23:10)
[2016-06-03 04:54] LABS: BASO % 0 % (0-3); EOS % 0 % (0-3); HEMATOCRIT 35.2 % (36.0-47.0); HEMOGLOBIN 11.1 g/dL (12.0-15.5); LYMPH # 0.6 x10^3/uL (1.0-4.8); LYMPH % 9 % (24-48); MEAN CORPUSCULAR HEMOGLOBIN 27 pg (25-35); MEAN CORPUSCULAR HGB CONC 32 g/dL (31-37); MEAN CORPUSCULAR VOLUME 86 fL (79-100); MONO % 10 % (0-9); NEUT % 82 % (31-73); PLATELET COUNT 294 x10^3/uL (140-400); RED CELL DISTRIBUTION WIDTH 17.6 % (11.5-14.5); WHITE BLOOD COUNT 7.1 x10^3/uL (4.0-11.0)
[2016-06-03 05:21] LABS: BLOOD UREA NITROGEN 32 mg/dL (7-20); CALCIUM 9.5 mg/dL (8.5-10.1); CARBON DIOXIDE 42 mmol/L (21-32); CHLORIDE 103 mmol/L (98-107); CREATININE 0.5 mg/dL (0.6-1.0); GFR 125.9; GLUCOSE 143 mg/dL (70-99); POTASSIUM 4.6 mmol/L (3.5-5.1); SODIUM 144 mmol/L (136-145)
[2016-06-03] MEDS: methylPREDNISolone SOD SUCC PF 40 MG/ML VIAL. IV SCH ×3 (05:55→21:33)
[2016-06-03] MEDS: BUDESONIDE 0.5 MG/2 ML NEBU NEB SCH ×2 (07:54→19:21)
[2016-06-03] MEDS: FOLIC ACID 1 MG TABLET PO SCH (08:10)
[2016-06-03] MEDS: LACTOBACILLUS ACIDOPH & BULGAR 1 TABLET. PO SCH (08:10)
[2016-06-03] MEDS: ATENOLOL 25 MG TABLET PO SCH (08:10)
[2016-06-03 08:11] LABS: HCO3 ABG 35 mmol/L (21-28); PCO2 ABG 57 mmHg (35-46); PO2 ABG 75 mmHg (65-108); SAT O2 ABG 94 % (92-99)
[2016-06-03] MEDS: ISOSORBIDE MONONITRATE ER 60 MG TAB.ER.24H PO SCH (08:11)
[2016-06-03] MEDS: CLOPIDOGREL BISULFATE 75 MG TABLET PO SCH (08:11)
[2016-06-03] MEDS: ALPRAZOLAM 0.25 MG TABLET PO PRN ×2 (08:11→21:32)
[2016-06-03] MEDS: FAMOTIDINE 20 MG TABLET. PO SCH ×2 (08:11→21:32)
[2016-06-03] MEDS: MELOXICAM 7.5 MG TABLET PO SCH (08:12)
[2016-06-03] MEDS: ASPIRIN ENTERIC COATED 81 MG TABLET.DR. PO SCH (08:12)
[2016-06-03] MEDS: DOCUSATE SODIUM 100 MG CAPSULE PO SCH (08:12)
[2016-06-03] MEDS: OMEGA-3 FATTY ACIDS/FISH OIL 1,000 MG CAPSULE. PO SCH (08:12)
[2016-06-03] MEDS: MIRABEGRON 25 MG TAB.ER.24H PO SCH (08:12)
[2016-06-03] MEDS: CEFTRIAXONE SODIUM 1 GM in IV NORMAL SALINE 100ML 100 ML IV SCH (08:12)
[2016-06-03 08:13] LABS: FIO2 ABG 33
[2016-06-03] MEDS: AA 4.25%/CALCIUM/LYTES/D5W 1,000 ML IV SCH (09:00)
[2016-06-03] MEDS: BUTORPHANOL 2 MG VIAL. IV PRN (09:19)
--- NOTE | 2016-06-03 10:00 | PDOC ---
PROGRESS NOTES Chief Complaint Chief Complaint 1. Acute hypercapnic hypoxic respiratory failure present on admission. 2. Chronic respiratory failure. 3. Chronic obstructive pulmonary disease. 4. Prior history of coronary artery disease with mild elevation of troponins. 5. Hypertension. 6. Hyperlipidemia. 7. Leukocytosis. History of Present Illness History of Present Illness Pt awake awake and able to communicate. Pt doing better. ABG improving. No fever or chills. Family member present and at bedside. VSS- All questions and concerns answered and addressed. On Venturi mask O2 sat 94% Vitals Vitals Vital Signs Date Time Temp Pulse Resp B/P Pulse Ox O2 Delivery O2 Flow Rate FiO2 06/03/16 09:19 Venturi Mask 93.0 06/03/16 08:11 99 162/85 06/03/16 07:50 95 06/03/16 07:00 20 06/03/16 04:00 98.2 98.2 Physical Exam General: Alert, Cooperative, No acute distress Heart: Regular rate, Normal S1, Normal S2 Abdomen: Normal bowel sounds, Soft, No tenderness Extremities: No clubbing, No cyanosis, No edema, Normal pulses Skin: No rashes, No breakdown, No significant lesion Labs LABS Laboratory Tests Test 06/02/16 15:40 06/03/16 03:00 06/03/16 03:30 06/03/16 07:50 O2 Saturation 95% (92-99) 94% (92-99) Arterial Blood pH 7.36 (7.35-7.45) 7.40 (7.35-7.45) Arterial Blood pCO2 at Patient Temp 77mmHg (35-46) 57mmHg (35-46) Arterial Blood pO2 at Patient Temp 82mmHg (65-108) 75mmHg (65-108) Arterial Blood HCO3 42mmol/L (21-28) 35mmol/L (21-28) Arterial Blood Base Excess 14mmol/L (-3-3) 8mmol/L (-3-3) FiO2 33 33 White Blood Count 7.1x10^3/uL (4.0-11.0) Red Blood Count 4.10x10^6/uL (3.50-5.40) Hemoglobin 11.1g/dL (12.0-15.5) Hematocrit 35.2% (36.0-47.0) Mean Corpuscular Volume 86fL (79-100) Mean Corpuscular Hemoglobin 27pg (25-35) Mean Corpuscular Hemoglobin Concent 32g/dL (31-37) Red Cell Distribution Width 17.6% (11.5-14.5) Platelet Count 294x10^3/uL (140-400) Neutrophils (%) (Auto) 82% (31-73) Lymphocytes (%) (Auto) 9% (24-48) Monocytes (%) (Auto) 10% (0-9) Eosinophils (%) (Auto) 0% (0-3) Basophils (%) (Auto) 0% (0-3) Neutrophils # (Auto) 5.8x10^3uL (1.8-7.7) Lymphocytes # (Auto) 0.6x10^3/uL (1.0-4.8) Monocytes # (Auto) 0.7x10^3/uL (0.0-1.1) Eosinophils # (Auto) 0.0x10^3/uL (0.0-0.7) Basophils # (Auto) 0.0x10^3/uL (0.0-0.2) Sodium Level 144mmol/L (136-145) Potassium Level 4.6mmol/L (3.5-5.1) Chloride Level 103mmol/L (98-107) Carbon Dioxide Level 42mmol/L (21-32) Anion Gap (6-14) Blood Urea Nitrogen 32mg/dL (7-20) Creatinine 0.5mg/dL (0.6-1.0) Estimated GFR (Cockcroft-Gault) 125.9 Glucose Level 143mg/dL (70-99) Calcium Level 9.5mg/dL (8.5-10.1) Review of Systems Review of Systems Complaint of hunger Complaint of fatigue Assessment and Plan Assessmemt and Plan Problems Medical Problems: (1) Respiratory failure Status: Acute Assessment: 1. Acute hypercapnic hypoxic respiratory failure present on admission. 2. Chronic respiratory failure. 3. Chronic obstructive pulmonary disease. 4. Prior history of coronary artery disease with mild elevation of troponins. 5. Hypertension. 6. Hyperlipidemia. 7. Leukocytosis. Plan: Continue to monitor the patient per ICU protocol Monitor daily labs- CBC, BMP, BUN and Cr Try gentle PTOT making sure not to decrease O2 or increase work of breathing Avoid narcotics, still have Stadol PRN for pain Add Toradol 10 IV q6 PRN for pain Continue IV steroids, IV emperic Abx DC PPN BiPAP at night, Venturi mask during the day, monitor vitals Continue breathing treatments Appreciate Pulmonary input and recommendations Possible out of ICU tomorrow AM SNU eval ordered Discuss with SALES MANAGEMENT INTERN and family Problems: Comment Review of Relevant I have reviewed the following items afshin (where applicable) has been applied. Labs Laboratory Tests Test 06/01/16 13:10 06/01/16 19:18 06/02/16 05:45 06/02/16 07:45 O2 Saturation 94% (92-99) 88% (92-99) 93% (92-99) Arterial Blood pH 7.30 (7.35-7.45) 7.33 (7.35-7.45) 7.37 (7.35-7.45) Arterial Blood pCO2 at Patient Temp 74mmHg (35-46) 70mmHg (35-46) 72mmHg (35-46) Arterial Blood pO2 at Patient Temp 73mmHg (65-108) 57mmHg (65-108) 71mmHg (65-108) Arterial Blood HCO3 35mmol/L (21-28) 36mmol/L (21-28) 41mmol/L (21-28) Arterial Blood Base Excess 6mmol/L (-3-3) 8mmol/L (-3-3) 13mmol/L (-3-3) FiO2 30 40 White Blood Count 8.7x10^3/uL (4.0-11.0) Red Blood Count 4.24x10^6/uL (3.50-5.40) Hemoglobin 11.3g/dL (12.0-15.5) Hematocrit 36.4% (36.0-47.0) Mean Corpuscular Volume 86fL (79-100) Mean Corpuscular Hemoglobin 27pg (25-35) Mean Corpuscular Hemoglobin Concent 31g/dL (31-37) Red Cell Distribution Width 17.4% (11.5-14.5) Platelet Count 319x10^3/uL (140-400) Neutrophils (%) (Auto) 87% (31-73) Lymphocytes (%) (Auto) 6% (24-48) Monocytes (%) (Auto) 8% (0-9) Eosinophils (%) (Auto) 0% (0-3) Basophils (%) (Auto) 0% (0-3) Neutrophils # (Auto) 7.6x10^3uL (1.8-7.7) Lymphocytes # (Auto) 0.5x10^3/uL (1.0-4.8) Monocytes # (Auto) 0.7x10^3/uL (0.0-1.1) Eosinophils # (Auto) 0.0x10^3/uL (0.0-0.7) Basophils # (Auto) 0.0x10^3/uL (0.0-0.2) Sodium Level 147mmol/L (136-145) Potassium Level 4.2mmol/L (3.5-5.1) Chloride Level 103mmol/L (98-107) Carbon Dioxide Level 43mmol/L (21-32) Anion Gap 1 (6-14) Blood Urea Nitrogen 22mg/dL (7-20) Creatinine 0.6mg/dL (0.6-1.0) Estimated GFR (Cockcroft-Gault) 102.0 Glucose Level 136mg/dL (70-99) Calcium Level 9.9mg/dL (8.5-10.1) Test 06/02/16 15:40 06/03/16 03:00 06/03/16 03:30 06/03/16 07:50 O2 Saturation 95% (92-99) 94% (92-99) Arterial Blood pH 7.36 (7.35-7.45) 7.40 (7.35-7.45) Arterial Blood pCO2 at Patient Temp 77mmHg (35-46) 57mmHg (35-46) Arterial Blood pO2 at Patient Temp 82mmHg (65-108) 75mmHg (65-108) Arterial Blood HCO3 42mmol/L (21-28) 35mmol/L (21-28) Arterial Blood Base Excess 14mmol/L (-3-3) 8mmol/L (-3-3) FiO2 33 33 White Blood Count 7.1x10^3/uL (4.0-11.0) Red Blood Count 4.10x10^6/uL (3.50-5.40) Hemoglobin 11.1g/dL (12.0-15.5) Hematocrit 35.2% (36.0-47.0) Mean Corpuscular Volume 86fL (79-100) Mean Corpuscular Hemoglobin 27pg (25-35) Mean Corpuscular Hemoglobin Concent 32g/dL (31-37) Red Cell Distribution Width 17.6% (11.5-14.5) Platelet Count 294x10^3/uL (140-400) Neutrophils (%) (Auto) 82% (31-73) Lymphocytes (%) (Auto) 9% (24-48) Monocytes (%) (Auto) 10% (0-9) Eosinophils (%) (Auto) 0% (0-3) Basophils (%) (Auto) 0% (0-3) Neutrophils # (Auto) 5.8x10^3uL (1.8-7.7) Lymphocytes # (Auto) 0.6x10^3/uL (1.0-4.8) Monocytes # (Auto) 0.7x10^3/uL (0.0-1.1) Eosinophils # (Auto) 0.0x10^3/uL (0.0-0.7) Basophils # (Auto) 0.0x10^3/uL (0.0-0.2) Sodium Level 144mmol/L (136-145) Potassium Level 4.6mmol/L (3.5-5.1) Chloride Level 103mmol/L (98-107) Carbon Dioxide Level 42mmol/L (21-32) Anion Gap (6-14) Blood Urea Nitrogen 32mg/dL (7-20) Creatinine 0.5mg/dL (0.6-1.0) Estimated GFR (Cockcroft-Gault) 125.9 Glucose Level 143mg/dL (70-99) Calcium Level 9.5mg/dL (8.5-10.1) Laboratory Tests Test 06/02/16 15:40 06/03/16 03:00 06/03/16 03:30 06/03/16 07:50 O2 Saturation 95% (92-99) 94% (92-99) Arterial Blood pH 7.36 (7.35-7.45) 7.40 (7.35-7.45) Arterial Blood pCO2 at Patient Temp 77mmHg (35-46) 57mmHg (35-46) Arterial Blood pO2 at Patient Temp 82mmHg (65-108) 75mmHg (65-108) Arterial Blood HCO3 42mmol/L (21-28) 35mmol/L (21-28) Arterial Blood Base Excess 14mmol/L (-3-3) 8mmol/L (-3-3) FiO2 33 33 White Blood Count 7.1x10^3/uL (4.0-11.0) Red Blood Count 4.10x10^6/uL (3.50-5.40) Hemoglobin 11.1g/dL (12.0-15.5) Hematocrit 35.2% (36.0-47.0) Mean Corpuscular Volume 86fL (79-100) Mean Corpuscular Hemoglobin 27pg (25-35) Mean Corpuscular Hemoglobin Concent 32g/dL (31-37) Red Cell Distribution Width 17.6% (11.5-14.5) Platelet Count 294x10^3/uL (140-400) Neutrophils (%) (Auto) 82% (31-73) Lymphocytes (%) (Auto) 9% (24-48) Monocytes (%) (Auto) 10% (0-9) Eosinophils (%) (Auto) 0% (0-3) Basophils (%) (Auto) 0% (0-3) Neutrophils # (Auto) 5.8x10^3uL (1.8-7.7) Lymphocytes # (Auto) 0.6x10^3/uL (1.0-4.8) Monocytes # (Auto) 0.7x10^3/uL (0.0-1.1) Eosinophils # (Auto) 0.0x10^3/uL (0.0-0.7) Basophils # (Auto) 0.0x10^3/uL (0.0-0.2) Sodium Level 144mmol/L (136-145) Potassium Level 4.6mmol/L (3.5-5.1) Chloride Level 103mmol/L (98-107) Carbon Dioxide Level 42mmol/L (21-32) Anion Gap (6-14) Blood Urea Nitrogen 32mg/dL (7-20) Creatinine 0.5mg/dL (0.6-1.0) Estimated GFR (Cockcroft-Gault) 125.9 Glucose Level 143mg/dL (70-99) Calcium Level 9.5mg/dL (8.5-10.1) Microbiology 05/30/16 Blood Culture - Preliminary, Resulted NO GROWTH AFTER 3 DAYS Medications Current Medications Methylprednisolone Sodium Succinate (Solu-Medrol 125mg Vial) 125 mg 1X ONCE IV Last administered on 05/30/16 08:31; Start 05/30/16 at 07:45; Stop 05/30/16 at 07:52; Status DC Isosorbide Mononitrate (Imdur) 60 mg 1X ONCE PO Last administered on 09:02; Start 05/30/16 at 08:30; Stop 05/30/16 at 08:31; Status DC Albuterol/ Ipratropium 3 ml 3 ml 1X ONCE NEB Last administered on 05/30/16 08 :44; Start 05/30/16 at 08:30; Stop 05/30/16 at 08:31; Status DC Ceftriaxone Sodium 1 gm/ Sodium Chloride 100 ml @ 200 mls/hr Q24H IV Last administered on 06/03/16 08:12; Start 05/31/16 at 09:00 Azithromycin 500 mg/Sodium Chloride 250 ml @ 250 mls/hr Q24H IV Last administered on 06/01/16 09:14; Start 05/31/16 at 09:00; Stop 06/02/16 at 08:59 ; Status DC Azithromycin 250 ml @ 250 mls/hr 1X ONCE IV ; Start 05/30/16 at 09:15; Stop at 10:14; Status DC Ceftriaxone Sodium (Rocephin 1gm Ivpb For Omni) 50 ml @ 100 mls/hr 1X ONCE IV Last administered on 05/30/16 10:18; Start 05/30/16 at 09:15; Stop 05/30/16 at 09:44; Status DC Ondansetron HCl 4 mg 4 mg PRN Q8HRS PRN IV NAUSEA/VOMITING; Start 05/30/16 at 10:00; Stop 05/31/16 at 09:59; Status DC Sodium Chloride (Iv Sodium Chloride 0.9% 1000ml Bag) 1,000 ml @ 100 mls/hr Q10H IV ; Start 05/30/16 at 09:48; Stop 05/31/16 at 09:47; Status DC Acetaminophen (Tylenol) 650 mg PRN Q4HRS PRN PO FEVER; Start 05/30/16 at 10:00 ; Stop 05/31/16 at 09:59; Status DC Albuterol/ Ipratropium (Duoneb) 3 ml RTQID NEB Last administered on 05/30/16 10:50; Start 05/30/16 at 12:00; Stop 05/30/16 at 16:32; Status DC Methylprednisolone Sodium Succinate (Solu-Medrol 40mg Vial) 40 mg Q8HRS IV Last administered on 05/31/16 05:50; Start 05/30/16 at 14:00; Stop 05/31/16 at 10:27; Status DC Enoxaparin Sodium (Lovenox 40mg Syringe) 40 mg Q24H SQ Last administered on 07:58; Start 05/30/16 at 11:00 Clopidogrel Bisulfate (Plavix) 75 mg DAILY PO Last administered on 06/03/16 08 :11; Start 05/30/16 at 14:30 Aspirin (Ecotrin) 81 mg DAILYWBKFT PO Last administered on 06/03/16 08:12; Start 05/30/16 at 14:15 Atenolol (Tenormin) 25 mg DAILY PO Last administered on 06/03/16 08:10; Start 05/30/16 at 15:00 Aspirin (Ecotrin) 81 mg DAILY PO ; Start 05/31/16 at 09:00; Status UNV Famotidine (Pepcid) 20 mg BID PO Last administered on 06/03/16 08:11; Start at 21:00 Folic Acid (Folic Acid) 1 mg DAILY PO Last administered on 06/03/16 08:10; Start 05/31/16 at 09:00 Isosorbide Mononitrate (Imdur) 60 mg DAILY PO Last administered on 06/03/16 08 :11; Start 05/31/16 at 09:00 Meloxicam (Mobic) 7.5 mg DAILY PO Last administered on 06/03/16 08:12; Start 05/31/16 at 09:00 Mirabegron (Myrbetriq) 25 mg DAILY PO Last administered on 06/03/16 08:12; Start 05/31/16 at 09:00 Budesonide (Pulmicort) 0.5 mg RTBID NEB Last administered on 06/03/16 07:54; Start 05/30/16 at 20:00 Lactobacillus Acidophilus (Bacid, Christa-Bid) 1 tab DAILY PO Last administered on 06/03/16 08:10; Start 05/31/16 at 09:00 Fish Oil (Fish Oil) 1,000 mg DAILY PO Last administered on 06/03/16 08:12; Start 05/31/16 at 09:00 Atorvastatin Calcium (Lipitor) 80 mg QHS PO Last administered on 06/02/16 20: 35; Start 05/30/16 at 21:00 Albuterol/ Ipratropium (Duoneb) 3 ml RTQID NEB Last administered on 05/31/16 07:19; Start 05/30/16 at 20:00; Stop 05/31/16 at 10:27; Status DC Oxycodone HCl (Roxicodone) 10 mg PRN Q6HRS PRN PO PAIN Last administered on 04:36; Start 05/30/16 at 18:00; Stop 05/31/16 at 10:28; Status DC Ketorolac Tromethamine (Toradol) 30 mg PRN Q6HRS PRN IV PAIN; Start 05/30/16 at 19:15; Stop 05/31/16 at 12:38; Status DC Albuterol/ Ipratropium (Duoneb) 3 ml Q4HRS NEB Last administered on 06/03/16 07:54; Start 05/31/16 at 12:00 Methylprednisolone Sodium Succinate 60 mg 60 mg Q8HRS IV Last administered on 05:55; Start 05/31/16 at 14:00 Amino Acids/ Electrolytes (Clinimix E 2.75%-5% Solution) 1,000 ml @ 50 mls/hr Q20H IV Last administered on 05/31/16 13:27; Start 05/31/16 at 12:00; Stop at 16:43; Status DC Docusate Sodium (Colace) 100 mg DAILY PO Last administered on 06/03/16 08:12; Start 05/31/16 at 11:30 Pramipexole Dihydrochloride (miraPEX) 0.5 mg ONCE ONCE PO Last administered on 05/31/16 20:40; Start 05/31/16 at 19:57; Stop 05/31/16 at 19:58; Status DC Pramipexole Dihydrochloride (miraPEX) 0.25 mg QHS PO Last administered on 20:35; Start 06/01/16 at 21:00 Acetaminophen (Tylenol) 650 mg PRN Q6HRS PRN PO MILD PAIN / TEMP Last administered on 06/01/16 09:12; Start 06/01/16 at 02:45 Alprazolam (Xanax) 0.25 mg 1X ONCE PO Last administered on 06/01/16 09:37; Start 06/01/16 at 10:00; Stop 06/01/16 at 10:01; Status DC Butorphanol Tartrate (Stadol) 1 mg PRN Q6HRS PRN IV PAIN Last administered on 09:19; Start 06/01/16 at 10:45 Alprazolam 0.25 mg 0.25 mg PRN BID PRN PO ANXIETY / AGITATION Last administered on 06/03/16 08:11; Start 06/01/16 at 13:45 Amino Acids/ Electrolytes/ Dextrose (Clinimix E 4.25%-5% Solution) 1,000 ml @ 50 mls/hr Q20H IV Last administered on 06/02/16 14:08; Start 06/01/16 at 17:00 Fentanyl (Duragesic 25mcg/ Hr Patch) 1 patch 1X ONCE TD Last administered on 09:56; Start 06/02/16 at 09:30; Stop 06/02/16 at 09:31; Status DC Fentanyl Citrate (Fentanyl 2ml Vial) 25 mcg 1X ONCE IV Last administered on 09:46; Start 06/02/16 at 09:30; Stop 06/02/16 at 09:31; Status DC Active Scripts Active Reported Calcium (Calcium Carbonate) 500 Mg Tab.chew 500 Mg PO Multivitamins (Multivitamin) 1 Each Capsule 1 Each PO Folic Acid 1 Mg Tablet 1 Tab PO DAILY Myrbetriq (Mirabegron) 25 Mg Tab.er.24h 25 Mg PO DAILY Isosorbide Mononitrate 20 Mg Tablet 60 Mg PO DAILY Probiotic (Lactobacillus Combo No.11) 1 Each Cap.sprink 1 Each PO DAILY Fish Oil ([place]-3 Fatty Acids) 300 Mg Capsule 1,200 Mg PO BID Crestor (Rosuvastatin Calcium) 40 Mg Tablet 1 Tab PO DAILY Aspir 81 (Aspirin) 81 Mg Tablet.dr 1 Tab PO DAILY Advair 250-50 Diskus (Fluticasone/Salmeterol) 1 Each Disk.w.dev 1 Puff IH BID Plavix (Clopidogrel Bisulfate) 75 Mg Tablet 75 Mg PO DAILY Atenolol 25 Mg Tablet 25 Mg PO DAILY Mirapex (Pramipexole Di-Hcl) 0.25 Mg Tablet 0.25 Mg PO Oxycodone Hcl 10 Mg Tablet 10 Mg PO PRN Spiriva (Tiotropium [place]) 18 Mcg Cap.w.dev 2 Inh IH DAILY Albuterol Sulfate Oral Syrup (Albuterol Sulfate) 2 Mg/5 Ml Syrup 4 Mg PO QID Meloxicam 7.5 Mg Tablet 7.5 Mg PO DAILY Prilosec Otc (Omeprazole Magnesium) 20 Mg Tablet.dr 20 Mg PO DAILY Famotidine 20 Mg Tablet 20 Mg PO BID Vitals/I & O Vital Sign - Last 24 Hours 06/02/16 06/02/16 06/02/16 06/02/16 09:56 10:00 10:00 10:15 Pulse 97 Resp 25 B/P 131/63 Pulse Ox 95 97 92 94 O2 Delivery BiPAP/CPAP BiPAP/CPAP BiPAP/CPAP BiPAP/CPAP O2 Flow Rate 40.0 40.0 06/02/16 06/02/16 06/02/16 06/02/16 11:00 11:23 12:00 12:00 Temp 97.7 97.7 Pulse 94 96 Resp 31 25 B/P 107/57 114/52 Pulse Ox 92 96 99 O2 Delivery BiPAP/CPAP BiPAP/CPAP BiPAP/CPAP Bi-pap 06/02/16 06/02/16 06/02/16 06/02/16 13:00 13:36 14:00 14:00 Pulse 90 124 83 Resp 21 B/P 103/62 166/77 139/68 Pulse Ox 98 94 98 O2 Delivery BiPAP/CPAP BiPAP/CPAP BiPAP/CPAP O2 Flow Rate 33.0 06/02/16 06/02/16 06/02/16 06/02/16 15:00 15:44 16:03 16:04 Temp 97.6 97.6 Pulse 82 90 Resp B/P 118/65 127/61 Pulse Ox 98 97 100 O2 Delivery BiPAP/CPAP BiPAP/CPAP Bi-pap BiPAP/CPAP 06/02/16 06/02/16 06/02/16 06/02/16 17:00 18:05 18:53 20:00 Pulse 91 88 96 Resp B/P 133/63 138/66 134/61 Pulse Ox 96 98 97 O2 Delivery BiPAP/CPAP BiPAP/CPAP BiPAP/CPAP Bi-pap 06/02/16 06/02/16 06/02/16 06/02/16 20:00 20:11 20:17 21:00 Temp 98.3 98.3 Pulse 97 95 Resp 14 B/P 168/83 156/72 Pulse Ox 98 97 97 95 O2 Delivery BiPAP/CPAP BiPAP/CPAP BiPAP/CPAP BiPAP/CPAP 06/02/16 06/02/16 06/02/16 06/03/16 22:00 23:00 23:39 00:00 Pulse 95 86 Resp 14 B/P 164/80 172/80 Pulse Ox 96 96 98 O2 Delivery BiPAP/CPAP BiPAP/CPAP BiPAP/CPAP Bi-pap 06/03/16 06/03/16 06/03/16 06/03/16 00:00 01:00 01:30 02:00 Pulse 93 93 92 Resp B/P 117/51 121/53 153/73 Pulse Ox 96 98 97 96 O2 Delivery BiPAP/CPAP BiPAP/CPAP BiPAP/CPAP BiPAP/CPAP 06/03/16 06/03/16 06/03/16 06/03/16 03:00 03:28 04:00 04:00 Temp 98.2 98.2 Pulse 94 100 Resp B/P 131/63 141/72 Pulse Ox 99 97 97 O2 Delivery BiPAP/CPAP BiPAP/CPAP BiPAP/CPAP Bi-pap 06/03/16 06/03/16 06/03/16 06/03/16 05:00 05:48 06:00 07:00 Pulse 90 94 90 Resp 22 11 20 B/P 116/63 135/72 142/73 Pulse Ox 98 97 96 96 O2 Delivery BiPAP/CPAP BiPAP/CPAP BiPAP/CPAP BiPAP/CPAP 06/03/16 06/03/16 06/03/16 06/03/16 07:50 08:10 08:11 09:19 Pulse 99 99 B/P 162/85 162/85 Pulse Ox 95 O2 Delivery BiPAP/CPAP Venturi Mask O2 Flow Rate 93.0 Intake and Output 06/02/16 06/02/16 06/03/16 15:00 23:00 07:00 Intake Total 691 ml 643.4 ml Output Total 500 ml 540 ml 575 ml Balance -500 ml 151 ml 68.4 ml AFUA DAVISONL K III DO Jun 03, 2016 10:00
[2016-06-03] MEDS ORDERED: OXYCODONE IR 5 MG TABLET. PO PRN (10:30)
--- NOTE | 2016-06-03 11:22 | PDOC ---
PULMONARY PROGRESS NOTES Subjective tolerating off BIPAP today ABG improved Vitals Vital Signs Date Time Temp Pulse Resp B/P Pulse Ox O2 Delivery O2 Flow Rate FiO2 06/03/16 11:00 85 21 118/58 95 Venturi Mask 06/03/16 09:19 93.0 06/03/16 08:00 98.8 98.8 General: Alert, No acute distress Lungs: Other (decrease bs) Cardiovascular: S1 Abdomen: Soft Neuro Exam: Alert Extremities: No Edema Skin: Warm Labs Laboratory Tests Test 06/01/16 13:10 06/01/16 19:18 06/02/16 05:45 06/02/16 07:45 O2 Saturation 94% (92-99) 88% (92-99) 93% (92-99) Arterial Blood pH 7.30 (7.35-7.45) 7.33 (7.35-7.45) 7.37 (7.35-7.45) Arterial Blood pCO2 at Patient Temp 74mmHg (35-46) 70mmHg (35-46) 72mmHg (35-46) Arterial Blood pO2 at Patient Temp 73mmHg (65-108) 57mmHg (65-108) 71mmHg (65-108) Arterial Blood HCO3 35mmol/L (21-28) 36mmol/L (21-28) 41mmol/L (21-28) Arterial Blood Base Excess 6mmol/L (-3-3) 8mmol/L (-3-3) 13mmol/L (-3-3) FiO2 30 40 White Blood Count 8.7x10^3/uL (4.0-11.0) Red Blood Count 4.24x10^6/uL (3.50-5.40) Hemoglobin 11.3g/dL (12.0-15.5) Hematocrit 36.4% (36.0-47.0) Mean Corpuscular Volume 86fL (79-100) Mean Corpuscular Hemoglobin 27pg (25-35) Mean Corpuscular Hemoglobin Concent 31g/dL (31-37) Red Cell Distribution Width 17.4% (11.5-14.5) Platelet Count 319x10^3/uL (140-400) Neutrophils (%) (Auto) 87% (31-73) Lymphocytes (%) (Auto) 6% (24-48) Monocytes (%) (Auto) 8% (0-9) Eosinophils (%) (Auto) 0% (0-3) Basophils (%) (Auto) 0% (0-3) Neutrophils # (Auto) 7.6x10^3uL (1.8-7.7) Lymphocytes # (Auto) 0.5x10^3/uL (1.0-4.8) Monocytes # (Auto) 0.7x10^3/uL (0.0-1.1) Eosinophils # (Auto) 0.0x10^3/uL (0.0-0.7) Basophils # (Auto) 0.0x10^3/uL (0.0-0.2) Sodium Level 147mmol/L (136-145) Potassium Level 4.2mmol/L (3.5-5.1) Chloride Level 103mmol/L (98-107) Carbon Dioxide Level 43mmol/L (21-32) Anion Gap 1 (6-14) Blood Urea Nitrogen 22mg/dL (7-20) Creatinine 0.6mg/dL (0.6-1.0) Estimated GFR (Cockcroft-Gault) 102.0 Glucose Level 136mg/dL (70-99) Calcium Level 9.9mg/dL (8.5-10.1) Test 06/02/16 15:40 06/03/16 03:00 06/03/16 03:30 06/03/16 07:50 O2 Saturation 95% (92-99) 94% (92-99) Arterial Blood pH 7.36 (7.35-7.45) 7.40 (7.35-7.45) Arterial Blood pCO2 at Patient Temp 77mmHg (35-46) 57mmHg (35-46) Arterial Blood pO2 at Patient Temp 82mmHg (65-108) 75mmHg (65-108) Arterial Blood HCO3 42mmol/L (21-28) 35mmol/L (21-28) Arterial Blood Base Excess 14mmol/L (-3-3) 8mmol/L (-3-3) FiO2 33 33 White Blood Count 7.1x10^3/uL (4.0-11.0) Red Blood Count 4.10x10^6/uL (3.50-5.40) Hemoglobin 11.1g/dL (12.0-15.5) Hematocrit 35.2% (36.0-47.0) Mean Corpuscular Volume 86fL (79-100) Mean Corpuscular Hemoglobin 27pg (25-35) Mean Corpuscular Hemoglobin Concent 32g/dL (31-37) Red Cell Distribution Width 17.6% (11.5-14.5) Platelet Count 294x10^3/uL (140-400) Neutrophils (%) (Auto) 82% (31-73) Lymphocytes (%) (Auto) 9% (24-48) Monocytes (%) (Auto) 10% (0-9) Eosinophils (%) (Auto) 0% (0-3) Basophils (%) (Auto) 0% (0-3) Neutrophils # (Auto) 5.8x10^3uL (1.8-7.7) Lymphocytes # (Auto) 0.6x10^3/uL (1.0-4.8) Monocytes # (Auto) 0.7x10^3/uL (0.0-1.1) Eosinophils # (Auto) 0.0x10^3/uL (0.0-0.7) Basophils # (Auto) 0.0x10^3/uL (0.0-0.2) Sodium Level 144mmol/L (136-145) Potassium Level 4.6mmol/L (3.5-5.1) Chloride Level 103mmol/L (98-107) Carbon Dioxide Level 42mmol/L (21-32) Anion Gap (6-14) Blood Urea Nitrogen 32mg/dL (7-20) Creatinine 0.5mg/dL (0.6-1.0) Estimated GFR (Cockcroft-Gault) 125.9 Glucose Level 143mg/dL (70-99) Calcium Level 9.5mg/dL (8.5-10.1) Laboratory Tests Test 06/02/16 15:40 06/03/16 03:00 06/03/16 03:30 06/03/16 07:50 O2 Saturation 95% (92-99) 94% (92-99) Arterial Blood pH 7.36 (7.35-7.45) 7.40 (7.35-7.45) Arterial Blood pCO2 at Patient Temp 77mmHg (35-46) 57mmHg (35-46) Arterial Blood pO2 at Patient Temp 82mmHg (65-108) 75mmHg (65-108) Arterial Blood HCO3 42mmol/L (21-28) 35mmol/L (21-28) Arterial Blood Base Excess 14mmol/L (-3-3) 8mmol/L (-3-3) FiO2 33 33 White Blood Count 7.1x10^3/uL (4.0-11.0) Red Blood Count 4.10x10^6/uL (3.50-5.40) Hemoglobin 11.1g/dL (12.0-15.5) Hematocrit 35.2% (36.0-47.0) Mean Corpuscular Volume 86fL (79-100) Mean Corpuscular Hemoglobin 27pg (25-35) Mean Corpuscular Hemoglobin Concent 32g/dL (31-37) Red Cell Distribution Width 17.6% (11.5-14.5) Platelet Count 294x10^3/uL (140-400) Neutrophils (%) (Auto) 82% (31-73) Lymphocytes (%) (Auto) 9% (24-48) Monocytes (%) (Auto) 10% (0-9) Eosinophils (%) (Auto) 0% (0-3) Basophils (%) (Auto) 0% (0-3) Neutrophils # (Auto) 5.8x10^3uL (1.8-7.7) Lymphocytes # (Auto) 0.6x10^3/uL (1.0-4.8) Monocytes # (Auto) 0.7x10^3/uL (0.0-1.1) Eosinophils # (Auto) 0.0x10^3/uL (0.0-0.7) Basophils # (Auto) 0.0x10^3/uL (0.0-0.2) Sodium Level 144mmol/L (136-145) Potassium Level 4.6mmol/L (3.5-5.1) Chloride Level 103mmol/L (98-107) Carbon Dioxide Level 42mmol/L (21-32) Anion Gap (6-14) Blood Urea Nitrogen 32mg/dL (7-20) Creatinine 0.5mg/dL (0.6-1.0) Estimated GFR (Cockcroft-Gault) 125.9 Glucose Level 143mg/dL (70-99) Calcium Level 9.5mg/dL (8.5-10.1) Medications Active Scripts Medications Dose Route/Sig Days Date Category Calcium (Calcium Carbonate) 500 Mg Tab.chew 500 Mg PO 05/30/16 Reported Multivitamins (Multivitamin) 1 Each Capsule 1 Each PO 05/30/16 Reported Folic Acid 1 Mg Tablet 1 Tab PO DAILY 05/30/16 Reported Myrbetriq (Mirabegron) 25 Mg Tab.er.24h 25 Mg PO DAILY 05/30/16 Reported Isosorbide Mononitrate 20 Mg Tablet 60 Mg PO DAILY 05/30/16 Reported Probiotic (Lactobacillus Combo No.11) 1 Each Cap.sprink 1 Each PO DAILY 05/30/16 Reported Fish Oil ([place]-3 Fatty Acids) 300 Mg Capsule 1,200 Mg PO BID 05/30/16 Reported Crestor (Rosuvastatin Calcium) 40 Mg Tablet 1 Tab PO DAILY 05/30/16 Reported Aspir 81 (Aspirin) 81 Mg Tablet.dr 1 Tab PO DAILY 05/30/16 Reported Advair 250-50 Diskus (Fluticasone/Salmeterol) 1 Each Disk.w.dev 1 Puff IH BID 05/30/16 Reported Plavix (Clopidogrel Bisulfate) 75 Mg Tablet 75 Mg PO DAILY 02/28/16 Reported Atenolol 25 Mg Tablet 25 Mg PO DAILY 02/28/16 Reported Mirapex (Pramipexole Di-Hcl) 0.25 Mg Tablet 0.25 Mg PO 02/28/16 Reported Oxycodone Hcl 10 Mg Tablet 10 Mg PO PRN 02/28/16 Reported Spiriva (Tiotropium [place]) 18 Mcg Cap.w.dev 2 Inh IH DAILY 02/28/16 Reported Albuterol Sulfate Oral Syrup (Albuterol Sulfate) 2 Mg/5 Ml Syrup 4 Mg PO QID 02/28/16 Reported Meloxicam 7.5 Mg Tablet 7.5 Mg PO DAILY 02/28/16 Reported Prilosec Otc (Omeprazole Magnesium) 20 Mg Tablet.dr 20 Mg PO DAILY 02/28/16 Reported Famotidine 20 Mg Tablet 20 Mg PO BID 02/28/16 Reported Impression . 1. [id number] hypercapnic and hypoxic respiratory failure secondary to acute exacerbation of chronic obstructive pulmonary disease and bibasilar pneumonia and Narcotics 2. Abnormal chest x-ray with bibasilar interstitial infiltrates. Clinically, I suspect pneumonia and less likely congestive heart failure. 3. Underlying severe chronic obstructive pulmonary disease, which is oxygen dependent and uses Trilogy ventilator at nighttime. 4. Ongoing tobacco consumption. Plan . 1. try off BiPAP, use VM during day 2. BIPAP at nighttime. 3. Continue with DuoNeb. 4. Continue with IV Solu-Medrol./taper 5. Continue with present empiric antibiotics. 6. Noncontrast CT chest reviewed. Suspect fine reticular markings related to acute pneumonitis rather then fibrosis 7. Deep venous thrombosis prophylaxis. 8. Stress ulcer prophylaxis. 9. Discussed with RN and RT. 10. d/w patient and at length today. Her needs for chronic narcotics and Benzo's makes it tough to correct CO2 narcosis. They both agree to minimize sedatives and narcotics. she prefers to have short term vent if needed but no tracheostomy. cct 25 min PRERNA CALHOUN MD Jun 03, 2016 11:22
[2016-06-03] MEDS: ENOXAPARIN 40 MG/0.4 ML DISP.SYRIN. SQ SCH (11:33)
--- NOTE | 2016-06-03 11:58 | PDOC ---
CARDIO Progress Notes Date and Time Date of Service 06/03/16 Time of Evaluation 1110 Subjective Subjective: No Chest Pain, No Palpitations, Other (breathing improved; now on venti mask) Vitals Vitals Vital Signs Date Time Temp Pulse Resp B/P Pulse Ox O2 Delivery O2 Flow Rate FiO2 06/03/16 11:00 85 21 118/58 95 Venturi Mask 06/03/16 09:19 93.0 06/03/16 08:00 98.8 98.8 Weight Weight [ ] Input and Output Intake and Output Intake and Output 06/03/16 07:00 Intake Total 1334.4 ml Output Total 1615 ml Balance -280.6 ml IV Total 743.4 ml Other 591 ml Output Urine Total 1615 ml # Bowel Movements 4 Laboratory Labs Laboratory Tests Test 06/02/16 15:40 06/03/16 03:00 06/03/16 03:30 06/03/16 07:50 O2 Saturation 95% (92-99) 94% (92-99) Arterial Blood pH 7.36 (7.35-7.45) 7.40 (7.35-7.45) Arterial Blood pCO2 at Patient Temp 77mmHg (35-46) 57mmHg (35-46) Arterial Blood pO2 at Patient Temp 82mmHg (65-108) 75mmHg (65-108) Arterial Blood HCO3 42mmol/L (21-28) 35mmol/L (21-28) Arterial Blood Base Excess 14mmol/L (-3-3) 8mmol/L (-3-3) FiO2 33 33 White Blood Count 7.1x10^3/uL (4.0-11.0) Red Blood Count 4.10x10^6/uL (3.50-5.40) Hemoglobin 11.1g/dL (12.0-15.5) Hematocrit 35.2% (36.0-47.0) Mean Corpuscular Volume 86fL (79-100) Mean Corpuscular Hemoglobin 27pg (25-35) Mean Corpuscular Hemoglobin Concent 32g/dL (31-37) Red Cell Distribution Width 17.6% (11.5-14.5) Platelet Count 294x10^3/uL (140-400) Neutrophils (%) (Auto) 82% (31-73) Lymphocytes (%) (Auto) 9% (24-48) Monocytes (%) (Auto) 10% (0-9) Eosinophils (%) (Auto) 0% (0-3) Basophils (%) (Auto) 0% (0-3) Neutrophils # (Auto) 5.8x10^3uL (1.8-7.7) Lymphocytes # (Auto) 0.6x10^3/uL (1.0-4.8) Monocytes # (Auto) 0.7x10^3/uL (0.0-1.1) Eosinophils # (Auto) 0.0x10^3/uL (0.0-0.7) Basophils # (Auto) 0.0x10^3/uL (0.0-0.2) Sodium Level 144mmol/L (136-145) Potassium Level 4.6mmol/L (3.5-5.1) Chloride Level 103mmol/L (98-107) Carbon Dioxide Level 42mmol/L (21-32) Anion Gap (6-14) Blood Urea Nitrogen 32mg/dL (7-20) Creatinine 0.5mg/dL (0.6-1.0) Estimated GFR (Cockcroft-Gault) 125.9 Glucose Level 143mg/dL (70-99) Calcium Level 9.5mg/dL (8.5-10.1) Microbiology Micro Microbiology 05/30/16 Blood Culture - Preliminary, Resulted NO GROWTH AFTER 4 DAYS Physical Exam HEENT: Neck Supple W Full Motion Chest: Symmetric LUNGS: Other (diminished throughout; on venti mask) Heart: S1S2, RRR Abdomen: Soft N/T Extremities: No Edema, No Calf Tenderness Neurology: alert, oriented, follow commands Assessment Assessment 1. Mild troponin elevation Peaked troponin at 0.7 Likely demand mediated Unknown TTE baseline although patient reports depressed LVEF is not new. Current TTE with EF 45-50% with proximal inferior septal hypokinesis, otherwise, mild global hypokinesis. Plan for MPI on Friday once respiratory status is optimal. 2. Acute respiratory failure with AE COPD and possible pneumonia improved. Transitioned from BiPAP to venti mask this morning per pulmonary 3. CAD 08/2011 [facility] noted with patent stents to LAD, Dx, LCx and RCA. Diffuse plaquing to distal LCx. EF 55% with questionable inferior hypokinesis DAPT, atenolol. Add XAVI for optimization 4. HTN controlled. Continue regimen per BP trend 5. HLP Lipds on goal, continue with statin TIFFANY CARPIO APRN Jun 03, 2016 11:58
[2016-06-03 12:03] LABS: HCO3 ABG 41 mmol/L (21-28); PH ABG 7.34 (7.35-7.45); PO2 ABG 90 mmHg (65-108); SAT O2 ABG 95 % (92-99)
[2016-06-03 12:05] LABS: PCO2 ABG 77 mmHg (35-46)
[2016-06-03 12:06] LABS: FIO2 ABG 35
[2016-06-03] MEDS: LISINOPRIL 2.5 MG TABLET PO SCH (13:32)
[2016-06-03] MEDS: ATORVASTATIN CALCIUM 40 MG TABLET. PO SCH (21:32)
[2016-06-03] MEDS: PRAMIPEXOLE 0.25 MG TABLET. PO SCH (21:32)
[2016-06-04] VITALS (15 sets, daily range): BP systolic 101–161; BP diastolic 51–73
[2016-06-04] MEDS: IPRATRPIUM/ALBUTEROL 0.5/2.5MG 3 ML NEBU. NEB SCH ×6 (04:01→23:43)
[2016-06-04 04:58] LABS: BASO % 0 % (0-3); EOS % 0 % (0-3); HEMATOCRIT 35.5 % (36.0-47.0); HEMOGLOBIN 11.1 g/dL (12.0-15.5); LYMPH # 0.9 x10^3/uL (1.0-4.8); LYMPH % 9 % (24-48); MEAN CORPUSCULAR HEMOGLOBIN 27 pg (25-35); MEAN CORPUSCULAR HGB CONC 31 g/dL (31-37); MEAN CORPUSCULAR VOLUME 86 fL (79-100); MONO % 7 % (0-9); NEUT % 84 % (31-73); PLATELET COUNT 324 x10^3/uL (140-400); RED BLOOD COUNT 4.13 x10^6/uL (3.50-5.40); RED CELL DISTRIBUTION WIDTH 17.7 % (11.5-14.5)
[2016-06-04 05:17] LABS: CALCIUM 9.6 mg/dL (8.5-10.1); CREATININE 0.6 mg/dL (0.6-1.0); POTASSIUM 4.6 mmol/L (3.5-5.1)
[2016-06-04] MEDS: KETOROLAC TROMETHAMINE 30 MG/ML SYRINGE. IV PRN (06:55)
[2016-06-04] MEDS: methylPREDNISolone SOD SUCC PF 40 MG/ML VIAL. IV SCH ×3 (06:55→20:46)
[2016-06-04] MEDS: BUTORPHANOL 2 MG VIAL. IV PRN (07:39)
[2016-06-04] MEDS: BUDESONIDE 0.5 MG/2 ML NEBU NEB SCH ×2 (08:15→20:21)
[2016-06-04] MEDS: FAMOTIDINE 20 MG TABLET. PO SCH ×2 (08:59→20:43)
[2016-06-04] MEDS: FOLIC ACID 1 MG TABLET PO SCH (08:59)
[2016-06-04] MEDS: MELOXICAM 7.5 MG TABLET PO SCH (08:59)
[2016-06-04] MEDS: CLOPIDOGREL BISULFATE 75 MG TABLET PO SCH (09:00)
[2016-06-04] MEDS: DOCUSATE SODIUM 100 MG CAPSULE PO SCH (09:00)
[2016-06-04] MEDS ORDERED: BUTORPHANOL 2 MG VIAL. IV PRN (09:00)
[2016-06-04] MEDS: ISOSORBIDE MONONITRATE ER 60 MG TAB.ER.24H PO SCH (09:00)
[2016-06-04] MEDS: LACTOBACILLUS ACIDOPH & BULGAR 1 TABLET. PO SCH (09:00)
[2016-06-04] MEDS: OMEGA-3 FATTY ACIDS/FISH OIL 1,000 MG CAPSULE. PO SCH (09:00)
[2016-06-04] MEDS: MIRABEGRON 25 MG TAB.ER.24H PO SCH (09:00)
[2016-06-04] MEDS: ASPIRIN ENTERIC COATED 81 MG TABLET.DR. PO SCH (09:01)
[2016-06-04] MEDS: LISINOPRIL 2.5 MG TABLET PO SCH (09:01)
[2016-06-04] MEDS: ATENOLOL 25 MG TABLET PO SCH (09:01)
[2016-06-04] MEDS: CEFTRIAXONE SODIUM 1 GM in IV NORMAL SALINE 100ML 100 ML IV SCH (09:01)
--- NOTE | 2016-06-04 09:51 | PDOC ---
PULMONARY PROGRESS NOTES Subjective pt not more soa Vitals Vital Signs Date Time Temp Pulse Resp B/P Pulse Ox O2 Delivery O2 Flow Rate FiO2 06/04/16 09:01 107 161/73 06/04/16 09:00 18 90 Venturi Mask 06/04/16 08:19 6.0 06/04/16 08:00 98.7 98.7 ROS: No Nausea, No Chest Pain, No Abdominal Pain, No Increase Cough General: Alert Lungs: Other (decrease bs) Cardiovascular: S1 Abdomen: Soft Neuro Exam: Alert Extremities: No Edema Skin: Warm Labs Laboratory Tests Test 06/02/16 15:40 06/03/16 03:00 06/03/16 03:30 06/03/16 07:50 O2 Saturation 95% (92-99) 94% (92-99) Arterial Blood pH 7.36 (7.35-7.45) 7.40 (7.35-7.45) Arterial Blood pCO2 at Patient Temp 77mmHg (35-46) 57mmHg (35-46) Arterial Blood pO2 at Patient Temp 82mmHg (65-108) 75mmHg (65-108) Arterial Blood HCO3 42mmol/L (21-28) 35mmol/L (21-28) Arterial Blood Base Excess 14mmol/L (-3-3) 8mmol/L (-3-3) FiO2 33 33 White Blood Count 7.1x10^3/uL (4.0-11.0) Red Blood Count 4.10x10^6/uL (3.50-5.40) Hemoglobin 11.1g/dL (12.0-15.5) Hematocrit 35.2% (36.0-47.0) Mean Corpuscular Volume 86fL (79-100) Mean Corpuscular Hemoglobin 27pg (25-35) Mean Corpuscular Hemoglobin Concent 32g/dL (31-37) Red Cell Distribution Width 17.6% (11.5-14.5) Platelet Count 294x10^3/uL (140-400) Neutrophils (%) (Auto) 82% (31-73) Lymphocytes (%) (Auto) 9% (24-48) Monocytes (%) (Auto) 10% (0-9) Eosinophils (%) (Auto) 0% (0-3) Basophils (%) (Auto) 0% (0-3) Neutrophils # (Auto) 5.8x10^3uL (1.8-7.7) Lymphocytes # (Auto) 0.6x10^3/uL (1.0-4.8) Monocytes # (Auto) 0.7x10^3/uL (0.0-1.1) Eosinophils # (Auto) 0.0x10^3/uL (0.0-0.7) Basophils # (Auto) 0.0x10^3/uL (0.0-0.2) Sodium Level 144mmol/L (136-145) Potassium Level 4.6mmol/L (3.5-5.1) Chloride Level 103mmol/L (98-107) Carbon Dioxide Level 42mmol/L (21-32) Anion Gap (6-14) Blood Urea Nitrogen 32mg/dL (7-20) Creatinine 0.5mg/dL (0.6-1.0) Estimated GFR (Cockcroft-Gault) 125.9 Glucose Level 143mg/dL (70-99) Calcium Level 9.5mg/dL (8.5-10.1) Test 06/03/16 11:40 06/04/16 04:35 O2 Saturation 95% (92-99) Arterial Blood pH 7.34 (7.35-7.45) Arterial Blood pCO2 at Patient Temp 77mmHg (35-46) Arterial Blood pO2 at Patient Temp 90mmHg (65-108) Arterial Blood HCO3 41mmol/L (21-28) Arterial Blood Base Excess 12mmol/L (-3-3) FiO2 35 White Blood Count 10.0x10^3/uL (4.0-11.0) Red Blood Count 4.13x10^6/uL (3.50-5.40) Hemoglobin 11.1g/dL (12.0-15.5) Hematocrit 35.5% (36.0-47.0) Mean Corpuscular Volume 86fL (79-100) Mean Corpuscular Hemoglobin 27pg (25-35) Mean Corpuscular Hemoglobin Concent 31g/dL (31-37) Red Cell Distribution Width 17.7% (11.5-14.5) Platelet Count 324x10^3/uL (140-400) Neutrophils (%) (Auto) 84% (31-73) Lymphocytes (%) (Auto) 9% (24-48) Monocytes (%) (Auto) 7% (0-9) Eosinophils (%) (Auto) 0% (0-3) Basophils (%) (Auto) 0% (0-3) Neutrophils # (Auto) 8.4x10^3uL (1.8-7.7) Lymphocytes # (Auto) 0.9x10^3/uL (1.0-4.8) Monocytes # (Auto) 0.7x10^3/uL (0.0-1.1) Eosinophils # (Auto) 0.0x10^3/uL (0.0-0.7) Basophils # (Auto) 0.0x10^3/uL (0.0-0.2) Sodium Level 145mmol/L (136-145) Potassium Level 4.6mmol/L (3.5-5.1) Chloride Level 104mmol/L (98-107) Carbon Dioxide Level 35mmol/L (21-32) Anion Gap 6 (6-14) Blood Urea Nitrogen 34mg/dL (7-20) Creatinine 0.6mg/dL (0.6-1.0) Estimated GFR (Cockcroft-Gault) 102.0 Glucose Level 149mg/dL (70-99) Calcium Level 9.6mg/dL (8.5-10.1) Laboratory Tests Test 06/03/16 11:40 06/04/16 04:35 O2 Saturation 95% (92-99) Arterial Blood pH 7.34 (7.35-7.45) Arterial Blood pCO2 at Patient Temp 77mmHg (35-46) Arterial Blood pO2 at Patient Temp 90mmHg (65-108) Arterial Blood HCO3 41mmol/L (21-28) Arterial Blood Base Excess 12mmol/L (-3-3) FiO2 35 White Blood Count 10.0x10^3/uL (4.0-11.0) Red Blood Count 4.13x10^6/uL (3.50-5.40) Hemoglobin 11.1g/dL (12.0-15.5) Hematocrit 35.5% (36.0-47.0) Mean Corpuscular Volume 86fL (79-100) Mean Corpuscular Hemoglobin 27pg (25-35) Mean Corpuscular Hemoglobin Concent 31g/dL (31-37) Red Cell Distribution Width 17.7% (11.5-14.5) Platelet Count 324x10^3/uL (140-400) Neutrophils (%) (Auto) 84% (31-73) Lymphocytes (%) (Auto) 9% (24-48) Monocytes (%) (Auto) 7% (0-9) Eosinophils (%) (Auto) 0% (0-3) Basophils (%) (Auto) 0% (0-3) Neutrophils # (Auto) 8.4x10^3uL (1.8-7.7) Lymphocytes # (Auto) 0.9x10^3/uL (1.0-4.8) Monocytes # (Auto) 0.7x10^3/uL (0.0-1.1) Eosinophils # (Auto) 0.0x10^3/uL (0.0-0.7) Basophils # (Auto) 0.0x10^3/uL (0.0-0.2) Sodium Level 145mmol/L (136-145) Potassium Level 4.6mmol/L (3.5-5.1) Chloride Level 104mmol/L (98-107) Carbon Dioxide Level 35mmol/L (21-32) Anion Gap 6 (6-14) Blood Urea Nitrogen 34mg/dL (7-20) Creatinine 0.6mg/dL (0.6-1.0) Estimated GFR (Cockcroft-Gault) 102.0 Glucose Level 149mg/dL (70-99) Calcium Level 9.6mg/dL (8.5-10.1) Medications Active Scripts Medications Dose Route/Sig Days Date Category Calcium (Calcium Carbonate) 500 Mg Tab.chew 500 Mg PO 05/30/16 Reported Multivitamins (Multivitamin) 1 Each Capsule 1 Each PO 05/30/16 Reported Folic Acid 1 Mg Tablet 1 Tab PO DAILY 05/30/16 Reported Myrbetriq (Mirabegron) 25 Mg Tab.er.24h 25 Mg PO DAILY 05/30/16 Reported Isosorbide Mononitrate 20 Mg Tablet 60 Mg PO DAILY 05/30/16 Reported Probiotic (Lactobacillus Combo No.11) 1 Each Cap.sprink 1 Each PO DAILY 05/30/16 Reported Fish Oil ([place]-3 Fatty Acids) 300 Mg Capsule 1,200 Mg PO BID 05/30/16 Reported Crestor (Rosuvastatin Calcium) 40 Mg Tablet 1 Tab PO DAILY 05/30/16 Reported Aspir 81 (Aspirin) 81 Mg Tablet.dr 1 Tab PO DAILY 05/30/16 Reported Advair 250-50 Diskus (Fluticasone/Salmeterol) 1 Each Disk.w.dev 1 Puff IH BID 05/30/16 Reported Plavix (Clopidogrel Bisulfate) 75 Mg Tablet 75 Mg PO DAILY 02/28/16 Reported Atenolol 25 Mg Tablet 25 Mg PO DAILY 02/28/16 Reported Mirapex (Pramipexole Di-Hcl) 0.25 Mg Tablet 0.25 Mg PO 02/28/16 Reported Oxycodone Hcl 10 Mg Tablet 10 Mg PO PRN 02/28/16 Reported Spiriva (Tiotropium [place]) 18 Mcg Cap.w.dev 2 Inh IH DAILY 02/28/16 Reported Albuterol Sulfate Oral Syrup (Albuterol Sulfate) 2 Mg/5 Ml Syrup 4 Mg PO QID 02/28/16 Reported Meloxicam 7.5 Mg Tablet 7.5 Mg PO DAILY 02/28/16 Reported Prilosec Otc (Omeprazole Magnesium) 20 Mg Tablet.dr 20 Mg PO DAILY 02/28/16 Reported Famotidine 20 Mg Tablet 20 Mg PO BID 02/28/16 Reported Impression . 1. [id number] hypercapnic and hypoxic respiratory failure secondary to acute exacerbation of chronic obstructive pulmonary disease and bibasilar pneumonia and Narcotics 2. Abnormal chest x-ray with bibasilar interstitial infiltrates. 3. Underlying severe chronic obstructive pulmonary disease, which is oxygen dependent and uses Trilogy ventilator at nighttime. 4. Ongoing tobacco consumption. 5. Elevated troponin level Plan . possible MPI in am BIPAP qhs steroids antibx GI and DVT PROPH avoid PRETTY Montelongo MD Jun 04, 2016 09:50
[2016-06-04] MEDS ORDERED: METH40VI IV (10:30)
[2016-06-04] MEDS ORDERED: ENOX40DI3 SQ (10:30)
[2016-06-04] MEDS ORDERED: LISI2.5T PO (10:30)
[2016-06-04] MEDS: ENOXAPARIN 40 MG/0.4 ML DISP.SYRIN. SQ SCH (11:56)
--- NOTE | 2016-06-04 14:12 | PDOC ---
PROGRESS NOTES Chief Complaint Chief Complaint 1. Acute hypercapnic hypoxic respiratory failure present on admission. 2. Chronic respiratory failure. 3. Chronic obstructive pulmonary disease. 4. Prior history of coronary artery disease with mild elevation of troponins. 5. Hypertension. 6. Hyperlipidemia. 7. Leukocytosis. cont current meds, fu with specialist recom. hold dc to select today as per card, will do MPI tmr. taper solumedrol to bid. cont ptot dvt ppx avoid narcotics, decrease to oxycodone 5mg prn from 10mg History of Present Illness History of Present Illness Pt awake awake and able to communicate. Pt doing better. ABG improving. No fever or chills. Family member present and at bedside. VSS- All questions and concerns answered and addressed. On Venturi mask O2 sat 94% Vitals Vitals Vital Signs Date Time Temp Pulse Resp B/P Pulse Ox O2 Delivery O2 Flow Rate FiO2 06/04/16 12:00 98.8 95 22 142/65 90 Venturi Mask 98.8 06/04/16 11:00 6.0 Physical Exam General: Alert, Cooperative, No acute distress Heart: Regular rate, Normal S1, Normal S2 Lungs: Other (decrease bs) Abdomen: Normal bowel sounds, Soft, No tenderness Extremities: No clubbing, No cyanosis, No edema, Normal pulses Skin: No rashes, No breakdown, No significant lesion Labs LABS Laboratory Tests Test 06/04/16 04:35 White Blood Count 10.0x10^3/uL (4.0-11.0) Red Blood Count 4.13x10^6/uL (3.50-5.40) Hemoglobin 11.1g/dL (12.0-15.5) Hematocrit 35.5% (36.0-47.0) Mean Corpuscular Volume 86fL (79-100) Mean Corpuscular Hemoglobin 27pg (25-35) Mean Corpuscular Hemoglobin Concent 31g/dL (31-37) Red Cell Distribution Width 17.7% (11.5-14.5) Platelet Count 324x10^3/uL (140-400) Neutrophils (%) (Auto) 84% (31-73) Lymphocytes (%) (Auto) 9% (24-48) Monocytes (%) (Auto) 7% (0-9) Eosinophils (%) (Auto) 0% (0-3) Basophils (%) (Auto) 0% (0-3) Neutrophils # (Auto) 8.4x10^3uL (1.8-7.7) Lymphocytes # (Auto) 0.9x10^3/uL (1.0-4.8) Monocytes # (Auto) 0.7x10^3/uL (0.0-1.1) Eosinophils # (Auto) 0.0x10^3/uL (0.0-0.7) Basophils # (Auto) 0.0x10^3/uL (0.0-0.2) Sodium Level 145mmol/L (136-145) Potassium Level 4.6mmol/L (3.5-5.1) Chloride Level 104mmol/L (98-107) Carbon Dioxide Level 35mmol/L (21-32) Anion Gap 6 (6-14) Blood Urea Nitrogen 34mg/dL (7-20) Creatinine 0.6mg/dL (0.6-1.0) Estimated GFR (Cockcroft-Gault) 102.0 Glucose Level 149mg/dL (70-99) Calcium Level 9.6mg/dL (8.5-10.1) Review of Systems Review of Systems no fever, chills, chest pain Assessment and Plan Assessmemt and Plan Problems Medical Problems: (1) Respiratory failure Status: Acute Problems: Comment Review of Relevant I have reviewed the following items afshin (where applicable) has been applied. Labs Laboratory Tests Test 06/02/16 15:40 06/03/16 03:00 06/03/16 03:30 06/03/16 07:50 O2 Saturation 95% (92-99) 94% (92-99) Arterial Blood pH 7.36 (7.35-7.45) 7.40 (7.35-7.45) Arterial Blood pCO2 at Patient Temp 77mmHg (35-46) 57mmHg (35-46) Arterial Blood pO2 at Patient Temp 82mmHg (65-108) 75mmHg (65-108) Arterial Blood HCO3 42mmol/L (21-28) 35mmol/L (21-28) Arterial Blood Base Excess 14mmol/L (-3-3) 8mmol/L (-3-3) FiO2 33 33 White Blood Count 7.1x10^3/uL (4.0-11.0) Red Blood Count 4.10x10^6/uL (3.50-5.40) Hemoglobin 11.1g/dL (12.0-15.5) Hematocrit 35.2% (36.0-47.0) Mean Corpuscular Volume 86fL (79-100) Mean Corpuscular Hemoglobin 27pg (25-35) Mean Corpuscular Hemoglobin Concent 32g/dL (31-37) Red Cell Distribution Width 17.6% (11.5-14.5) Platelet Count 294x10^3/uL (140-400) Neutrophils (%) (Auto) 82% (31-73) Lymphocytes (%) (Auto) 9% (24-48) Monocytes (%) (Auto) 10% (0-9) Eosinophils (%) (Auto) 0% (0-3) Basophils (%) (Auto) 0% (0-3) Neutrophils # (Auto) 5.8x10^3uL (1.8-7.7) Lymphocytes # (Auto) 0.6x10^3/uL (1.0-4.8) Monocytes # (Auto) 0.7x10^3/uL (0.0-1.1) Eosinophils # (Auto) 0.0x10^3/uL (0.0-0.7) Basophils # (Auto) 0.0x10^3/uL (0.0-0.2) Sodium Level 144mmol/L (136-145) Potassium Level 4.6mmol/L (3.5-5.1) Chloride Level 103mmol/L (98-107) Carbon Dioxide Level 42mmol/L (21-32) Anion Gap (6-14) Blood Urea Nitrogen 32mg/dL (7-20) Creatinine 0.5mg/dL (0.6-1.0) Estimated GFR (Cockcroft-Gault) 125.9 Glucose Level 143mg/dL (70-99) Calcium Level 9.5mg/dL (8.5-10.1) Test 06/03/16 11:40 06/04/16 04:35 O2 Saturation 95% (92-99) Arterial Blood pH 7.34 (7.35-7.45) Arterial Blood pCO2 at Patient Temp 77mmHg (35-46) Arterial Blood pO2 at Patient Temp 90mmHg (65-108) Arterial Blood HCO3 41mmol/L (21-28) Arterial Blood Base Excess 12mmol/L (-3-3) FiO2 35 White Blood Count 10.0x10^3/uL (4.0-11.0) Red Blood Count 4.13x10^6/uL (3.50-5.40) Hemoglobin 11.1g/dL (12.0-15.5) Hematocrit 35.5% (36.0-47.0) Mean Corpuscular Volume 86fL (79-100) Mean Corpuscular Hemoglobin 27pg (25-35) Mean Corpuscular Hemoglobin Concent 31g/dL (31-37) Red Cell Distribution Width 17.7% (11.5-14.5) Platelet Count 324x10^3/uL (140-400) Neutrophils (%) (Auto) 84% (31-73) Lymphocytes (%) (Auto) 9% (24-48) Monocytes (%) (Auto) 7% (0-9) Eosinophils (%) (Auto) 0% (0-3) Basophils (%) (Auto) 0% (0-3) Neutrophils # (Auto) 8.4x10^3uL (1.8-7.7) Lymphocytes # (Auto) 0.9x10^3/uL (1.0-4.8) Monocytes # (Auto) 0.7x10^3/uL (0.0-1.1) Eosinophils # (Auto) 0.0x10^3/uL (0.0-0.7) Basophils # (Auto) 0.0x10^3/uL (0.0-0.2) Sodium Level 145mmol/L (136-145) Potassium Level 4.6mmol/L (3.5-5.1) Chloride Level 104mmol/L (98-107) Carbon Dioxide Level 35mmol/L (21-32) Anion Gap 6 (6-14) Blood Urea Nitrogen 34mg/dL (7-20) Creatinine 0.6mg/dL (0.6-1.0) Estimated GFR (Cockcroft-Gault) 102.0 Glucose Level 149mg/dL (70-99) Calcium Level 9.6mg/dL (8.5-10.1) Laboratory Tests Test 06/04/16 04:35 White Blood Count 10.0x10^3/uL (4.0-11.0) Red Blood Count 4.13x10^6/uL (3.50-5.40) Hemoglobin 11.1g/dL (12.0-15.5) Hematocrit 35.5% (36.0-47.0) Mean Corpuscular Volume 86fL (79-100) Mean Corpuscular Hemoglobin 27pg (25-35) Mean Corpuscular Hemoglobin Concent 31g/dL (31-37) Red Cell Distribution Width 17.7% (11.5-14.5) Platelet Count 324x10^3/uL (140-400) Neutrophils (%) (Auto) 84% (31-73) Lymphocytes (%) (Auto) 9% (24-48) Monocytes (%) (Auto) 7% (0-9) Eosinophils (%) (Auto) 0% (0-3) Basophils (%) (Auto) 0% (0-3) Neutrophils # (Auto) 8.4x10^3uL (1.8-7.7) Lymphocytes # (Auto) 0.9x10^3/uL (1.0-4.8) Monocytes # (Auto) 0.7x10^3/uL (0.0-1.1) Eosinophils # (Auto) 0.0x10^3/uL (0.0-0.7) Basophils # (Auto) 0.0x10^3/uL (0.0-0.2) Sodium Level 145mmol/L (136-145) Potassium Level 4.6mmol/L (3.5-5.1) Chloride Level 104mmol/L (98-107) Carbon Dioxide Level 35mmol/L (21-32) Anion Gap 6 (6-14) Blood Urea Nitrogen 34mg/dL (7-20) Creatinine 0.6mg/dL (0.6-1.0) Estimated GFR (Cockcroft-Gault) 102.0 Glucose Level 149mg/dL (70-99) Calcium Level 9.6mg/dL (8.5-10.1) Microbiology 05/30/16 Blood Culture - Final, Complete NO GROWTH AFTER 5 DAYS Medications Current Medications Methylprednisolone Sodium Succinate (Solu-Medrol 125mg Vial) 125 mg 1X ONCE IV Last administered on 05/30/16 08:31; Start 05/30/16 at 07:45; Stop 05/30/16 at 07:52; Status DC Isosorbide Mononitrate (Imdur) 60 mg 1X ONCE PO Last administered on 09:02; Start 05/30/16 at 08:30; Stop 05/30/16 at 08:31; Status DC Albuterol/ Ipratropium 3 ml 3 ml 1X ONCE NEB Last administered on 05/30/16 08 :44; Start 05/30/16 at 08:30; Stop 05/30/16 at 08:31; Status DC Ceftriaxone Sodium 1 gm/ Sodium Chloride 100 ml @ 200 mls/hr Q24H IV Last administered on 06/04/16 09:01; Start 05/31/16 at 09:00 Azithromycin 500 mg/Sodium Chloride 250 ml @ 250 mls/hr Q24H IV Last administered on 06/01/16 09:14; Start 05/31/16 at 09:00; Stop 06/02/16 at 08:59 ; Status DC Azithromycin 250 ml @ 250 mls/hr 1X ONCE IV ; Start 05/30/16 at 09:15; Stop at 10:14; Status DC Ceftriaxone Sodium (Rocephin 1gm Ivpb For Omni) 50 ml @ 100 mls/hr 1X ONCE IV Last administered on 05/30/16 10:18; Start 05/30/16 at 09:15; Stop 05/30/16 at 09:44; Status DC Ondansetron HCl 4 mg 4 mg PRN Q8HRS PRN IV NAUSEA/VOMITING; Start 05/30/16 at 10:00; Stop 05/31/16 at 09:59; Status DC Sodium Chloride (Iv Sodium Chloride 0.9% 1000ml Bag) 1,000 ml @ 100 mls/hr Q10H IV ; Start 05/30/16 at 09:48; Stop 05/31/16 at 09:47; Status DC Acetaminophen (Tylenol) 650 mg PRN Q4HRS PRN PO FEVER; Start 05/30/16 at 10:00 ; Stop 05/31/16 at 09:59; Status DC Albuterol/ Ipratropium (Duoneb) 3 ml RTQID NEB Last administered on 05/30/16 10:50; Start 05/30/16 at 12:00; Stop 05/30/16 at 16:32; Status DC Methylprednisolone Sodium Succinate (Solu-Medrol 40mg Vial) 40 mg Q8HRS IV Last administered on 05/31/16 05:50; Start 05/30/16 at 14:00; Stop 05/31/16 at 10:27; Status DC Enoxaparin Sodium (Lovenox 40mg Syringe) 40 mg Q24H SQ Last administered on 11:56; Start 05/30/16 at 11:00 Clopidogrel Bisulfate (Plavix) 75 mg DAILY PO Last administered on 06/04/16 09 :00; Start 05/30/16 at 14:30 Aspirin (Ecotrin) 81 mg DAILYWBKFT PO Last administered on 06/04/16 09:01; Start 05/30/16 at 14:15 Atenolol (Tenormin) 25 mg DAILY PO Last administered on 06/04/16 09:01; Start 05/30/16 at 15:00 Aspirin (Ecotrin) 81 mg DAILY PO ; Start 05/31/16 at 09:00; Status UNV Famotidine (Pepcid) 20 mg BID PO Last administered on 06/04/16 08:59; Start at 21:00 Folic Acid (Folic Acid) 1 mg DAILY PO Last administered on 06/04/16 08:59; Start 05/31/16 at 09:00 Isosorbide Mononitrate (Imdur) 60 mg DAILY PO Last administered on 06/04/16 09 :00; Start 05/31/16 at 09:00 Meloxicam (Mobic) 7.5 mg DAILY PO Last administered on 06/04/16 08:59; Start 05/31/16 at 09:00 Mirabegron (Myrbetriq) 25 mg DAILY PO Last administered on 06/04/16 09:00; Start 05/31/16 at 09:00 Budesonide (Pulmicort) 0.5 mg RTBID NEB Last administered on 06/04/16 08:15; Start 05/30/16 at 20:00 Lactobacillus Acidophilus (Bacid, Christa-Bid) 1 tab DAILY PO Last administered on 06/04/16 09:00; Start 05/31/16 at 09:00 Fish Oil (Fish Oil) 1,000 mg DAILY PO Last administered on 06/04/16 09:00; Start 05/31/16 at 09:00 Atorvastatin Calcium (Lipitor) 80 mg QHS PO Last administered on 06/03/16 21: 32; Start 05/30/16 at 21:00 Albuterol/ Ipratropium (Duoneb) 3 ml RTQID NEB Last administered on 05/31/16 07:19; Start 05/30/16 at 20:00; Stop 05/31/16 at 10:27; Status DC Oxycodone HCl (Roxicodone) 10 mg PRN Q6HRS PRN PO PAIN Last administered on 04:36; Start 05/30/16 at 18:00; Stop 05/31/16 at 10:28; Status DC Ketorolac Tromethamine (Toradol) 30 mg PRN Q6HRS PRN IV PAIN; Start 05/30/16 at 19:15; Stop 05/31/16 at 12:38; Status DC Albuterol/ Ipratropium (Duoneb) 3 ml Q4HRS NEB Last administered on 06/04/16 11:22; Start 05/31/16 at 12:00 Methylprednisolone Sodium Succinate 60 mg 60 mg Q8HRS IV Last administered on 06:55; Start 05/31/16 at 14:00 Amino Acids/ Electrolytes (Clinimix E 2.75%-5% Solution) 1,000 ml @ 50 mls/hr Q20H IV Last administered on 05/31/16 13:27; Start 05/31/16 at 12:00; Stop at 16:43; Status DC Docusate Sodium (Colace) 100 mg DAILY PO Last administered on 06/03/16 08:12; Start 05/31/16 at 11:30 Pramipexole Dihydrochloride (miraPEX) 0.5 mg ONCE ONCE PO Last administered on 05/31/16 20:40; Start 05/31/16 at 19:57; Stop 05/31/16 at 19:58; Status DC Pramipexole Dihydrochloride (miraPEX) 0.25 mg QHS PO Last administered on 21:32; Start 06/01/16 at 21:00 Acetaminophen (Tylenol) 650 mg PRN Q6HRS PRN PO MILD PAIN / TEMP Last administered on 06/01/16 09:12; Start 06/01/16 at 02:45 Alprazolam (Xanax) 0.25 mg 1X ONCE PO Last administered on 06/01/16 09:37; Start 06/01/16 at 10:00; Stop 06/01/16 at 10:01; Status DC Butorphanol Tartrate (Stadol) 1 mg PRN Q6HRS PRN IV PAIN Last administered on 07:39; Start 06/01/16 at 10:45; Stop 06/04/16 at 08:54; Status DC Alprazolam 0.25 mg 0.25 mg PRN BID PRN PO ANXIETY / AGITATION Last administered on 06/03/16 21:32; Start 06/01/16 at 13:45 Amino Acids/ Electrolytes/ Dextrose (Clinimix E 4.25%-5% Solution) 1,000 ml @ 50 mls/hr Q20H IV Last administered on 06/02/16 14:08; Start 06/01/16 at 17:00 ; Stop 06/03/16 at 15:42; Status DC Fentanyl (Duragesic 25mcg/ Hr Patch) 1 patch 1X ONCE TD Last administered on 09:56; Start 06/02/16 at 09:30; Stop 06/02/16 at 09:31; Status DC Fentanyl Citrate (Fentanyl 2ml Vial) 25 mcg 1X ONCE IV Last administered on 09:46; Start 06/02/16 at 09:30; Stop 06/02/16 at 09:31; Status DC Ketorolac Tromethamine (Toradol) 10 mg PRN Q6HRS PRN IV PAIN Last administered on 06/04/16 06:55; Start 06/03/16 at 10:00; Stop 06/08/16 at 09:59 Oxycodone HCl (Roxicodone) 10 mg PRN TID PRN PO PAIN; Start 06/03/16 at 10:30 Lisinopril (Prinivil) 2.5 mg DAILY PO Last administered on 06/04/16t 09:01; Start 06/03/16 at 12:30 Butorphanol Tartrate (Stadol) 0.5 mg PRN Q6HRS PRN IV PAIN; Start 06/04/16 at 09:00 Active Scripts Active Solu-Medrol 40 Mg Vial (Methylprednisolone Sod Succ/Pf) 40 Mg/1 Ml Vial 60 Mg IV Q8HRS Lisinopril 2.5 Mg Tablet 2.5 Mg PO DAILY Enoxaparin Sodium 40 Mg/0.4 Ml Disp.syrin 40 Mg SQ Q24H Reported Calcium (Calcium Carbonate) 500 Mg Tab.chew 500 Mg PO Multivitamins (Multivitamin) 1 Each Capsule 1 Each PO Folic Acid 1 Mg Tablet 1 Tab PO DAILY Myrbetriq (Mirabegron) 25 Mg Tab.er.24h 25 Mg PO DAILY Isosorbide Mononitrate 20 Mg Tablet 60 Mg PO DAILY Probiotic (Lactobacillus Combo No.11) 1 Each Cap.sprink 1 Each PO DAILY Fish Oil (Van-3 Fatty Acids) 300 Mg Capsule 1,200 Mg PO BID Crestor (Rosuvastatin Calcium) 40 Mg Tablet 1 Tab PO DAILY Aspir 81 (Aspirin) 81 Mg Tablet.dr 1 Tab PO DAILY Advair 250-50 Diskus (Fluticasone/Salmeterol) 1 Each Disk.w.dev 1 Puff IH BID Plavix (Clopidogrel Bisulfate) 75 Mg Tablet 75 Mg PO DAILY Atenolol 25 Mg Tablet 25 Mg PO DAILY Mirapex (Pramipexole Di-Hcl) 0.25 Mg Tablet 0.25 Mg PO Oxycodone Hcl 10 Mg Tablet 10 Mg PO PRN TID PRN Spiriva (Tiotropium Crane) 18 Mcg Cap.w.dev 2 Inh IH DAILY Albuterol Sulfate Oral Syrup (Albuterol Sulfate) 2 Mg/5 Ml Syrup 4 Mg PO QID Meloxicam 7.5 Mg Tablet 7.5 Mg PO DAILY Prilosec Otc (Omeprazole Magnesium) 20 Mg Tablet.dr 20 Mg PO DAILY Famotidine 20 Mg Tablet 20 Mg PO BID Vitals/I & O Vital Sign - Last 24 Hours 2/27/17 2/27/17 2/27/17 2/27/17 15:00 15:36 16:00 16:00 Temp 98.8 98.8 Pulse 99 99 Resp B/P 151/71 119/57 Pulse Ox 90 94 93 O2 Delivery Venturi Mask Venturi Mask Venturi Mask Venturi Mask O2 Flow Rate 9.0 06/03/16 06/03/16 06/03/16 06/03/16 17:00 18:00 19:00 19:22 Pulse 90 101 114 Resp B/P 146/66 140/73 142/91 Pulse Ox 91 90 95 89 O2 Delivery Venturi Mask Venturi Mask Venturi Mask Venturi Mask O2 Flow Rate 6.0 6.0 06/03/16 06/03/16 06/03/16 06/03/16 19:45 20:00 20:00 21:00 Temp 97.0 97.0 Pulse 115 115 Resp B/P 171/73 127/62 Pulse Ox 97 94 96 O2 Delivery BiPAP/CPAP Bi-pap BiPAP/CPAP BiPAP/CPAP 06/03/16 06/03/16 06/03/16 06/03/16 22:00 23:00 23:10 23:59 Pulse 110 104 Resp B/P 106/59 112/62 Pulse Ox 97 97 95 O2 Delivery BiPAP/CPAP BiPAP/CPAP BiPAP/CPAP Bi-pap 06/04/16 06/04/16 06/04/16 06/04/16 00:00 00:52 01:00 02:00 Temp 98.1 98.1 Pulse 109 106 101 Resp B/P 101/58 109/58 113/64 Pulse Ox 96 95 96 97 O2 Delivery BiPAP/CPAP BiPAP/CPAP BiPAP/CPAP BiPAP/CPAP 06/04/16 06/04/16 06/04/16 06/04/16 03:00 03:50 04:00 04:00 Temp 98.0 98.0 Pulse 101 101 Resp B/P 111/63 101/51 Pulse Ox 97 97 97 O2 Delivery BiPAP/CPAP BiPAP/CPAP BiPAP/CPAP Bi-pap 06/04/16 06/04/16 06/04/16 06/04/16 05:00 05:25 06:00 07:00 Pulse 101 101 103 Resp 25 25 26 B/P 124/66 128/70 112/61 Pulse Ox 97 96 97 97 O2 Delivery BiPAP/CPAP BiPAP/CPAP BiPAP/CPAP BiPAP/CPAP 06/04/16 06/04/16 06/04/16 06/04/16 07:39 08:00 08:00 08:19 Temp 98.7 98.7 Pulse 99 Resp 26 B/P 133/66 Pulse Ox 91 89 O2 Delivery Venturi Mask Venturi Mask Venturi Mask Venturi Mask O2 Flow Rate 6.0 06/04/16 06/04/16 06/04/16 06/04/16 09:00 09:00 09:01 09:01 Pulse 107 107 107 107 Resp 18 B/P 161/73 161/73 161/73 161/73 Pulse Ox 90 O2 Delivery Venturi Mask 06/04/16 06/04/16 06/04/16 06/04/16 10:00 11:00 11:00 12:00 Pulse 103 92 Resp 26 B/P 143/67 121/73 Pulse Ox 89 89 O2 Delivery Venturi Mask Venturi Mask Venturi Mask Venturi Mask O2 Flow Rate 6.0 06/04/16 12:00 Temp 98.8 98.8 Pulse 95 Resp 22 B/P 142/65 Pulse Ox 90 O2 Delivery Venturi Mask Intake and Output 06/03/16 06/03/16 06/04/16 15:00 23:00 07:00 Intake Total 240 ml 120 ml 100 ml Output Total 785 ml 185 ml 350 ml Balance -545 ml -65 ml -250 ml CORBIN CHATMAN MD Jun 04, 2016 14:12
[2016-06-04] MEDS ORDERED: OXYCODONE IR 5 MG TABLET. PO PRN (14:15)
--- NOTE | 2016-06-04 14:50 | PDOC ---
CARDIO Progress Notes Date and Time Date of Service 06/04/16 Time of Evaluation 1310 Subjective Subjective: No Chest Pain, No Palpitations, Other (on ventimask. breathing improved) Vitals Vitals Vital Signs Date Time Temp Pulse Resp B/P Pulse Ox O2 Delivery O2 Flow Rate FiO2 06/04/16 12:00 98.8 95 22 142/65 90 Venturi Mask 98.8 06/04/16 11:00 6.0 Weight Weight [ ] Input and Output Intake and Output Intake and Output 06/04/16 07:00 Intake Total 460 ml Output Total 1320 ml Balance -860 ml Intake Oral 460 ml Output Urine Total 1320 ml # Bowel Movements 2 Laboratory Labs Laboratory Tests Test 06/04/16 04:35 White Blood Count 10.0x10^3/uL (4.0-11.0) Red Blood Count 4.13x10^6/uL (3.50-5.40) Hemoglobin 11.1g/dL (12.0-15.5) Hematocrit 35.5% (36.0-47.0) Mean Corpuscular Volume 86fL (79-100) Mean Corpuscular Hemoglobin 27pg (25-35) Mean Corpuscular Hemoglobin Concent 31g/dL (31-37) Red Cell Distribution Width 17.7% (11.5-14.5) Platelet Count 324x10^3/uL (140-400) Neutrophils (%) (Auto) 84% (31-73) Lymphocytes (%) (Auto) 9% (24-48) Monocytes (%) (Auto) 7% (0-9) Eosinophils (%) (Auto) 0% (0-3) Basophils (%) (Auto) 0% (0-3) Neutrophils # (Auto) 8.4x10^3uL (1.8-7.7) Lymphocytes # (Auto) 0.9x10^3/uL (1.0-4.8) Monocytes # (Auto) 0.7x10^3/uL (0.0-1.1) Eosinophils # (Auto) 0.0x10^3/uL (0.0-0.7) Basophils # (Auto) 0.0x10^3/uL (0.0-0.2) Sodium Level 145mmol/L (136-145) Potassium Level 4.6mmol/L (3.5-5.1) Chloride Level 104mmol/L (98-107) Carbon Dioxide Level 35mmol/L (21-32) Anion Gap 6 (6-14) Blood Urea Nitrogen 34mg/dL (7-20) Creatinine 0.6mg/dL (0.6-1.0) Estimated GFR (Cockcroft-Gault) 102.0 Glucose Level 149mg/dL (70-99) Calcium Level 9.6mg/dL (8.5-10.1) Microbiology Micro Microbiology 05/30/16 Blood Culture - Final, Complete NO GROWTH AFTER 5 DAYS Physical Exam HEENT: Neck Supple W Full Motion Chest: Symmetric LUNGS: Other (diminished throughout; on venti mask) Heart: S1S2, RRR Abdomen: Soft N/T Extremities: No Edema, No Calf Tenderness Neurology: alert, oriented, follow commands Assessment Assessment 1. Mild troponin elevation TTE with EF 45-50% with proximal inferior septal hypokinesis, otherwise, mild global hypokinesis. Unknown TTE baseline although patient reports depressed LVEF is not new. Plan for MPI in am to r/o reversible ischemia 2. Acute respiratory failure with AE COPD and possible pneumonia improved. on venti mask per pulmonary 3. CAD 08/2011 [facility] noted with patent stents to LAD, Dx, LCx and RCA. Diffuse plaquing to distal LCx. EF 55% with questionable inferior hypokinesis DAPT, atenolol. Add XAVI for optimization 4. HTN controlled. Continue regimen per BP trend 5. HLP Lipds on goal, continue with statin TIFFANY CARPIO APRN Jun 04, 2016 14:49
[2016-06-04] MEDS: PRAMIPEXOLE 0.25 MG TABLET. PO SCH (20:42)
[2016-06-04] MEDS: ALPRAZOLAM 0.25 MG TABLET PO PRN (20:43)
[2016-06-04] MEDS: ATORVASTATIN CALCIUM 40 MG TABLET. PO SCH (20:46)
[2016-06-05 02:50] VITALS: BP 103/51
[2016-06-05] MEDS: IPRATRPIUM/ALBUTEROL 0.5/2.5MG 3 ML NEBU. NEB SCH ×7 (03:50→23:20)
[2016-06-05 04:32] LABS: CALCIUM 9.3 mg/dL (8.5-10.1); CREATININE 0.7 mg/dL (0.6-1.0); GFR 85.4; POTASSIUM 4.5 mmol/L (3.5-5.1)
[2016-06-05 04:34] LABS: BASO % 0 % (0-3); EOS % 0 % (0-3); HEMATOCRIT 33.5 % (36.0-47.0); HEMOGLOBIN 10.4 g/dL (12.0-15.5); LYMPH # 0.8 x10^3/uL (1.0-4.8); LYMPH % 8 % (24-48); MEAN CORPUSCULAR HEMOGLOBIN 27 pg (25-35); MEAN CORPUSCULAR HGB CONC 31 g/dL (31-37); MEAN CORPUSCULAR VOLUME 85 fL (79-100); MONO % 4 % (0-9); NEUT % 88 % (31-73); PLATELET COUNT 326 x10^3/uL (140-400); RED BLOOD COUNT 3.92 x10^6/uL (3.50-5.40); RED CELL DISTRIBUTION WIDTH 17.4 % (11.5-14.5)
[2016-06-05 07:00] VITALS: BP 120/61
[2016-06-05] MEDS: BUDESONIDE 0.5 MG/2 ML NEBU NEB SCH (07:13)
[2016-06-05] MEDS: DOCUSATE SODIUM 100 MG CAPSULE PO SCH (09:00)
[2016-06-05] MEDS: CEFTRIAXONE SODIUM 1 GM in IV NORMAL SALINE 100ML 100 ML IV SCH (09:00)
[2016-06-05 10:42] VITALS: BP 146/69
[2016-06-05] MEDS ORDERED: REGADENOSON 0.4 MG/5 ML DISP.SYRIN. IV ONE (11:30)
--- NOTE | 2016-06-05 11:57 | PDOC ---
CARDIO Progress Notes Date and Time Date of Service 06/05/16 Time of Evaluation 1110 Subjective Subjective: No Chest Pain, No Palpitations, Other (on ventimask. breathing at baseline. productive cough) Vitals Vitals Vital Signs Date Time Temp Pulse Resp B/P Pulse Ox O2 Delivery O2 Flow Rate FiO2 06/05/16 10:42 98.1 108 23 146/69 92 Venturi Mask 98.1 06/05/16 08:00 6.0 Weight Weight [ ] Input and Output Intake and Output Intake and Output 06/05/16 07:00 Intake Total 960 ml Output Total 840 ml Balance 120 ml Intake Oral 960 ml Output Urine Total 840 ml # Bowel Movements 1 Laboratory Labs Laboratory Tests Test 06/05/16 03:54 White Blood Count 11.0x10^3/uL (4.0-11.0) Red Blood Count 3.92x10^6/uL (3.50-5.40) Hemoglobin 10.4g/dL (12.0-15.5) Hematocrit 33.5% (36.0-47.0) Mean Corpuscular Volume 85fL (79-100) Mean Corpuscular Hemoglobin 27pg (25-35) Mean Corpuscular Hemoglobin Concent 31g/dL (31-37) Red Cell Distribution Width 17.4% (11.5-14.5) Platelet Count 326x10^3/uL (140-400) Neutrophils (%) (Auto) 88% (31-73) Lymphocytes (%) (Auto) 8% (24-48) Monocytes (%) (Auto) 4% (0-9) Eosinophils (%) (Auto) 0% (0-3) Basophils (%) (Auto) 0% (0-3) Neutrophils # (Auto) 9.7x10^3uL (1.8-7.7) Lymphocytes # (Auto) 0.8x10^3/uL (1.0-4.8) Monocytes # (Auto) 0.5x10^3/uL (0.0-1.1) Eosinophils # (Auto) 0.0x10^3/uL (0.0-0.7) Basophils # (Auto) 0.0x10^3/uL (0.0-0.2) Sodium Level 147mmol/L (136-145) Potassium Level 4.5mmol/L (3.5-5.1) Chloride Level 105mmol/L (98-107) Carbon Dioxide Level 37mmol/L (21-32) Anion Gap 5 (6-14) Blood Urea Nitrogen 37mg/dL (7-20) Creatinine 0.7mg/dL (0.6-1.0) Estimated GFR (Cockcroft-Gault) 85.4 Glucose Level 132mg/dL (70-99) Calcium Level 9.3mg/dL (8.5-10.1) Microbiology Micro Microbiology 05/30/16 Blood Culture - Final, Complete NO GROWTH AFTER 5 DAYS Physical Exam HEENT: Neck Supple W Full Motion Chest: Symmetric LUNGS: Other (diminished throughout; on venti mask) Heart: S1S2, RRR Abdomen: Soft N/T Extremities: No Edema, No Calf Tenderness Neurology: alert, oriented, follow commands Assessment Assessment 1. Mild troponin elevation TTE with EF 45-50% with proximal inferior septal hypokinesis, otherwise, mild global hypokinesis. Unknown TTE baseline although patient reports depressed LVEF is not new. MPI underway today; if no evidence of reversible ischemia, may transfer to LTAC 2. Acute respiratory failure with AE COPD and possible pneumonia improved. on venti mask per pulmonary 3. CAD 08/2011 LHC noted with patent stents to LAD, Dx, LCx and RCA. Diffuse plaquing to distal LCx. EF 55% with questionable inferior hypokinesis DAPT, atenolol. 4. HTN controlled. Continue regimen per BP trend 5. HLP Lipds on goal, continue with statin TIFFANY CARPIO APRN Jun 05, 2016 11:57
[2016-06-05] MEDS: FOLIC ACID 1 MG TABLET PO SCH (12:38)
[2016-06-05] MEDS: FAMOTIDINE 20 MG TABLET. PO SCH ×2 (12:38→20:39)
[2016-06-05] MEDS: MELOXICAM 7.5 MG TABLET PO SCH (12:38)
[2016-06-05] MEDS: LACTOBACILLUS ACIDOPH & BULGAR 1 TABLET. PO SCH (12:38)
[2016-06-05] MEDS: MIRABEGRON 25 MG TAB.ER.24H PO SCH (12:39)
[2016-06-05] MEDS: CLOPIDOGREL BISULFATE 75 MG TABLET PO SCH (12:39)
[2016-06-05] MEDS: LISINOPRIL 2.5 MG TABLET PO SCH (12:39)
[2016-06-05] MEDS: ATENOLOL 25 MG TABLET PO SCH (12:39)
[2016-06-05] MEDS: ASPIRIN ENTERIC COATED 81 MG TABLET.DR. PO SCH (12:39)
[2016-06-05] MEDS: ISOSORBIDE MONONITRATE ER 60 MG TAB.ER.24H PO SCH (12:40)
[2016-06-05] MEDS: OMEGA-3 FATTY ACIDS/FISH OIL 1,000 MG CAPSULE. PO SCH (12:41)
[2016-06-05] MEDS: methylPREDNISolone SOD SUCC PF 40 MG/ML VIAL. IV SCH (12:41)
[2016-06-05] MEDS: KETOROLAC TROMETHAMINE 30 MG/ML SYRINGE. IV PRN ×2 (12:55→20:39)
[2016-06-05] MEDS: ENOXAPARIN 40 MG/0.4 ML DISP.SYRIN. SQ SCH (12:56)
--- NOTE | 2016-06-05 13:26 | PDOC ---
PROGRESS NOTES Chief Complaint Chief Complaint 1. Acute hypercapnic hypoxic respiratory failure present on admission. 2. Chronic respiratory failure. 3. Chronic obstructive pulmonary disease. 4. Prior history of coronary artery disease with mild elevation of troponins. 5. Hypertension. 6. Hyperlipidemia. 7. Leukocytosis - resolved History of Present Illness History of Present Illness Patient seen following MPI study. She reports the exam caused her chest pain. No acute events overnight. She is awake, alert and without complaint. She does request Mucinex to help dry out her cough, this will be ordered. Vitals Vitals Vital Signs Date Time Temp Pulse Resp B/P Pulse Ox O2 Delivery O2 Flow Rate FiO2 06/05/16 12:40 108 146/69 06/05/16 10:42 98.1 23 92 Venturi Mask 98.1 06/05/16 08:00 6.0 Physical Exam General: Alert, Cooperative, No acute distress Heart: Normal S1, Normal S2, Other (Slightly tachycardic) Lungs: Other (Slightly decreased breath sounds bilaterally) Abdomen: Soft, No tenderness Extremities: Normal pulses, No tenderness/swelling Skin: No rashes, No significant lesion Labs LABS Laboratory Tests Test 06/05/16 03:54 White Blood Count 11.0x10^3/uL (4.0-11.0) Red Blood Count 3.92x10^6/uL (3.50-5.40) Hemoglobin 10.4g/dL (12.0-15.5) Hematocrit 33.5% (36.0-47.0) Mean Corpuscular Volume 85fL (79-100) Mean Corpuscular Hemoglobin 27pg (25-35) Mean Corpuscular Hemoglobin Concent 31g/dL (31-37) Red Cell Distribution Width 17.4% (11.5-14.5) Platelet Count 326x10^3/uL (140-400) Neutrophils (%) (Auto) 88% (31-73) Lymphocytes (%) (Auto) 8% (24-48) Monocytes (%) (Auto) 4% (0-9) Eosinophils (%) (Auto) 0% (0-3) Basophils (%) (Auto) 0% (0-3) Neutrophils # (Auto) 9.7x10^3uL (1.8-7.7) Lymphocytes # (Auto) 0.8x10^3/uL (1.0-4.8) Monocytes # (Auto) 0.5x10^3/uL (0.0-1.1) Eosinophils # (Auto) 0.0x10^3/uL (0.0-0.7) Basophils # (Auto) 0.0x10^3/uL (0.0-0.2) Sodium Level 147mmol/L (136-145) Potassium Level 4.5mmol/L (3.5-5.1) Chloride Level 105mmol/L (98-107) Carbon Dioxide Level 37mmol/L (21-32) Anion Gap 5 (6-14) Blood Urea Nitrogen 37mg/dL (7-20) Creatinine 0.7mg/dL (0.6-1.0) Estimated GFR (Cockcroft-Gault) 85.4 Glucose Level 132mg/dL (70-99) Calcium Level 9.3mg/dL (8.5-10.1) Review of Systems Review of Systems Patient continues to have cough and shortness of breath. Denies fever or chills. Assessment and Plan Assessmemt and Plan Problems Medical Problems: (1) Respiratory failure Status: Acute Assessment: 1. Acute hypercapnic hypoxic respiratory failure present on admission. 2. Chronic respiratory failure. 3. Chronic obstructive pulmonary disease. 4. Prior history of coronary artery disease with mild elevation of troponin. 5. Hypertension. 6. Hyperlipidemia. 7. Leukocytosis - resolved. Plan: Begin Mucinex 1,200mg PO BID Awaiting results of MPI Per cardiology, if MPI negative will likely discharge to LTAC in AM Continue telemetry monitoring Monitor daily labs- CBC, BMP, BUN and Cr Continue light PT/OT as long as oxygen saturations are maintained without increased work of breathing Discontinue morales catheter due to increased risk of UTI with prolonged insertion Continue current pain control Continue Solumedrol BID Continue duonebs Appreciate subspecialty input and recommendations Discussed with RN, patient and Problems: Comment Review of Relevant I have reviewed the following items afshin (where applicable) has been applied. Labs Laboratory Tests Test 06/04/16 04:35 06/05/16 03:54 White Blood Count 10.0x10^3/uL (4.0-11.0) 11.0x10^3/uL (4.0-11.0) Red Blood Count 4.13x10^6/uL (3.50-5.40) 3.92x10^6/uL (3.50-5.40) Hemoglobin 11.1g/dL (12.0-15.5) 10.4g/dL (12.0-15.5) Hematocrit 35.5% (36.0-47.0) 33.5% (36.0-47.0) Mean Corpuscular Volume 86fL (79-100) 85fL (79-100) Mean Corpuscular Hemoglobin 27pg (25-35) 27pg (25-35) Mean Corpuscular Hemoglobin Concent 31g/dL (31-37) 31g/dL (31-37) Red Cell Distribution Width 17.7% (11.5-14.5) 17.4% (11.5-14.5) Platelet Count 324x10^3/uL (140-400) 326x10^3/uL (140-400) Neutrophils (%) (Auto) 84% (31-73) 88% (31-73) Lymphocytes (%) (Auto) 9% (24-48) 8% (24-48) Monocytes (%) (Auto) 7% (0-9) 4% (0-9) Eosinophils (%) (Auto) 0% (0-3) 0% (0-3) Basophils (%) (Auto) 0% (0-3) 0% (0-3) Neutrophils # (Auto) 8.4x10^3uL (1.8-7.7) 9.7x10^3uL (1.8-7.7) Lymphocytes # (Auto) 0.9x10^3/uL (1.0-4.8) 0.8x10^3/uL (1.0-4.8) Monocytes # (Auto) 0.7x10^3/uL (0.0-1.1) 0.5x10^3/uL (0.0-1.1) Eosinophils # (Auto) 0.0x10^3/uL (0.0-0.7) 0.0x10^3/uL (0.0-0.7) Basophils # (Auto) 0.0x10^3/uL (0.0-0.2) 0.0x10^3/uL (0.0-0.2) Sodium Level 145mmol/L (136-145) 147mmol/L (136-145) Potassium Level 4.6mmol/L (3.5-5.1) 4.5mmol/L (3.5-5.1) Chloride Level 104mmol/L (98-107) 105mmol/L (98-107) Carbon Dioxide Level 35mmol/L (21-32) 37mmol/L (21-32) Anion Gap 6 (6-14) 5 (6-14) Blood Urea Nitrogen 34mg/dL (7-20) 37mg/dL (7-20) Creatinine 0.6mg/dL (0.6-1.0) 0.7mg/dL (0.6-1.0) Estimated GFR (Cockcroft-Gault) 102.0 85.4 Glucose Level 149mg/dL (70-99) 132mg/dL (70-99) Calcium Level 9.6mg/dL (8.5-10.1) 9.3mg/dL (8.5-10.1) Laboratory Tests Test 06/05/16 03:54 White Blood Count 11.0x10^3/uL (4.0-11.0) Red Blood Count 3.92x10^6/uL (3.50-5.40) Hemoglobin 10.4g/dL (12.0-15.5) Hematocrit 33.5% (36.0-47.0) Mean Corpuscular Volume 85fL (79-100) Mean Corpuscular Hemoglobin 27pg (25-35) Mean Corpuscular Hemoglobin Concent 31g/dL (31-37) Red Cell Distribution Width 17.4% (11.5-14.5) Platelet Count 326x10^3/uL (140-400) Neutrophils (%) (Auto) 88% (31-73) Lymphocytes (%) (Auto) 8% (24-48) Monocytes (%) (Auto) 4% (0-9) Eosinophils (%) (Auto) 0% (0-3) Basophils (%) (Auto) 0% (0-3) Neutrophils # (Auto) 9.7x10^3uL (1.8-7.7) Lymphocytes # (Auto) 0.8x10^3/uL (1.0-4.8) Monocytes # (Auto) 0.5x10^3/uL (0.0-1.1) Eosinophils # (Auto) 0.0x10^3/uL (0.0-0.7) Basophils # (Auto) 0.0x10^3/uL (0.0-0.2) Sodium Level 147mmol/L (136-145) Potassium Level 4.5mmol/L (3.5-5.1) Chloride Level 105mmol/L (98-107) Carbon Dioxide Level 37mmol/L (21-32) Anion Gap 5 (6-14) Blood Urea Nitrogen 37mg/dL (7-20) Creatinine 0.7mg/dL (0.6-1.0) Estimated GFR (Cockcroft-Gault) 85.4 Glucose Level 132mg/dL (70-99) Calcium Level 9.3mg/dL (8.5-10.1) Microbiology 05/30/16 Blood Culture - Final, Complete NO GROWTH AFTER 5 DAYS Medications Current Medications Methylprednisolone Sodium Succinate (Solu-Medrol 125mg Vial) 125 mg 1X ONCE IV Last administered on 05/30/16 08:31; Start 05/30/16 at 07:45; Stop 05/30/16 at 07:52; Status DC Isosorbide Mononitrate (Imdur) 60 mg 1X ONCE PO Last administered on 09:02; Start 05/30/16 at 08:30; Stop 05/30/16 at 08:31; Status DC Albuterol/ Ipratropium 3 ml 3 ml 1X ONCE NEB Last administered on 05/30/16 08 :44; Start 05/30/16 at 08:30; Stop 05/30/16 at 08:31; Status DC Ceftriaxone Sodium 1 gm/ Sodium Chloride 100 ml @ 200 mls/hr Q24H IV Last administered on 06/04/16 09:01; Start 05/31/16 at 09:00 Azithromycin 500 mg/Sodium Chloride 250 ml @ 250 mls/hr Q24H IV Last administered on 06/01/16 09:14; Start 05/31/16 at 09:00; Stop 06/02/16 at 08:59 ; Status DC Azithromycin 250 ml @ 250 mls/hr 1X ONCE IV ; Start 05/30/16 at 09:15; Stop at 10:14; Status DC Ceftriaxone Sodium (Rocephin 1gm Ivpb For Omni) 50 ml @ 100 mls/hr 1X ONCE IV Last administered on 05/30/16 10:18; Start 05/30/16 at 09:15; Stop 05/30/16 at 09:44; Status DC Ondansetron HCl 4 mg 4 mg PRN Q8HRS PRN IV NAUSEA/VOMITING; Start 05/30/16 at 10:00; Stop 05/31/16 at 09:59; Status DC Sodium Chloride (Iv Sodium Chloride 0.9% 1000ml Bag) 1,000 ml @ 100 mls/hr Q10H IV ; Start 05/30/16 at 09:48; Stop 05/31/16 at 09:47; Status DC Acetaminophen (Tylenol) 650 mg PRN Q4HRS PRN PO FEVER; Start 05/30/16 at 10:00 ; Stop 05/31/16 at 09:59; Status DC Albuterol/ Ipratropium (Duoneb) 3 ml RTQID NEB Last administered on 05/30/16 10:50; Start 05/30/16 at 12:00; Stop 05/30/16 at 16:32; Status DC Methylprednisolone Sodium Succinate (Solu-Medrol 40mg Vial) 40 mg Q8HRS IV Last administered on 05/31/16 05:50; Start 05/30/16 at 14:00; Stop 05/31/16 at 10:27; Status DC Enoxaparin Sodium (Lovenox 40mg Syringe) 40 mg Q24H SQ Last administered on 06/05 12:56; Start 05/30/16 at 11:00 Clopidogrel Bisulfate (Plavix) 75 mg DAILY PO Last administered on 06/05/16 12: 39; Start 05/30/16 at 14:30 Aspirin (Ecotrin) 81 mg DAILYWBKFT PO Last administered on 06/05/16 12:39; Start 05/30/16 at 14:15 Atenolol (Tenormin) 25 mg DAILY PO Last administered on 06/05/16 12:39; Start 05/30/16 at 15:00 Aspirin (Ecotrin) 81 mg DAILY PO ; Start 05/31/16 at 09:00; Status UNV Famotidine (Pepcid) 20 mg BID PO Last administered on 06/05/16 12:38; Start at 21:00 Folic Acid (Folic Acid) 1 mg DAILY PO Last administered on 06/05/16 12:38; Start 05/31/16 at 09:00 Isosorbide Mononitrate (Imdur) 60 mg DAILY PO Last administered on 06/05/16 12: 40; Start 05/31/16 at 09:00 Meloxicam (Mobic) 7.5 mg DAILY PO Last administered on 06/05/16 12:38; Start at 09:00 Mirabegron (Myrbetriq) 25 mg DAILY PO Last administered on 06/05/16 12:39; Start 05/31/16 at 09:00 Budesonide (Pulmicort) 0.5 mg RTBID NEB Last administered on 06/05/16 07:13; Start 05/30/16 at 20:00 Lactobacillus Acidophilus (Bacid, Christa-Bid) 1 tab DAILY PO Last administered on 06/05/16 12:38; Start 05/31/16 at 09:00 Fish Oil (Fish Oil) 1,000 mg DAILY PO Last administered on 06/05/16 12:41; Start 05/31/16 at 09:00 Atorvastatin Calcium (Lipitor) 80 mg QHS PO Last administered on 06/04/16 20: 46; Start 05/30/16 at 21:00 Albuterol/ Ipratropium (Duoneb) 3 ml RTQID NEB Last administered on 05/31/16 07:19; Start 05/30/16 at 20:00; Stop 05/31/16 at 10:27; Status DC Oxycodone HCl (Roxicodone) 10 mg PRN Q6HRS PRN PO PAIN Last administered on 04:36; Start 05/30/16 at 18:00; Stop 05/31/16 at 10:28; Status DC Ketorolac Tromethamine (Toradol) 30 mg PRN Q6HRS PRN IV PAIN; Start 05/30/16 at 19:15; Stop 05/31/16 at 12:38; Status DC Albuterol/ Ipratropium (Duoneb) 3 ml Q4HRS NEB Last administered on 06/05/16 07 :13; Start 05/31/16 at 12:00 Methylprednisolone Sodium Succinate 60 mg 60 mg Q8HRS IV Last administered on 06:55; Start 05/31/16 at 14:00; Stop 06/04/16 at 14:10; Status DC Amino Acids/ Electrolytes (Clinimix E 2.75%-5% Solution) 1,000 ml @ 50 mls/hr Q20H IV Last administered on 05/31/16 13:27; Start 05/31/16 at 12:00; Stop at 16:43; Status DC Docusate Sodium (Colace) 100 mg DAILY PO Last administered on 06/03/16 08:12; Start 05/31/16 at 11:30 Pramipexole Dihydrochloride (miraPEX) 0.5 mg ONCE ONCE PO Last administered on 05/31/16 20:40; Start 05/31/16 at 19:57; Stop 05/31/16 at 19:58; Status DC Pramipexole Dihydrochloride (miraPEX) 0.25 mg QHS PO Last administered on 20:42; Start 06/01/16 at 21:00 Acetaminophen (Tylenol) 650 mg PRN Q6HRS PRN PO MILD PAIN / TEMP Last administered on 06/01/16 09:12; Start 06/01/16 at 02:45 Alprazolam (Xanax) 0.25 mg 1X ONCE PO Last administered on 06/01/16 09:37; Start 06/01/16 at 10:00; Stop 06/01/16 at 10:01; Status DC Butorphanol Tartrate (Stadol) 1 mg PRN Q6HRS PRN IV PAIN Last administered on 07:39; Start 06/01/16 at 10:45; Stop 06/04/16 at 08:54; Status DC Alprazolam 0.25 mg 0.25 mg PRN BID PRN PO ANXIETY / AGITATION Last administered on 06/04/16 20:43; Start 06/01/16 at 13:45 Amino Acids/ Electrolytes/ Dextrose (Clinimix E 4.25%-5% Solution) 1,000 ml @ 50 mls/hr Q20H IV Last administered on 06/02/16 14:08; Start 06/01/16 at 17:00 ; Stop 06/03/16 at 15:42; Status DC Fentanyl (Duragesic 25mcg/ Hr Patch) 1 patch 1X ONCE TD Last administered on 09:56; Start 06/02/16 at 09:30; Stop 06/02/16 at 09:31; Status DC Fentanyl Citrate (Fentanyl 2ml Vial) 25 mcg 1X ONCE IV Last administered on 09:46; Start 06/02/16 at 09:30; Stop 06/02/16 at 09:31; Status DC Ketorolac Tromethamine (Toradol) 10 mg PRN Q6HRS PRN IV PAIN Last administered on 06/05/16 12:55; Start 06/03/16 at 10:00; Stop 06/08/16 at 09:59 Oxycodone HCl (Roxicodone) 10 mg PRN TID PRN PO PAIN; Start 06/03/16 at 10:30; Stop 06/04/16 at 14:13; Status DC Lisinopril (Prinivil) 2.5 mg DAILY PO Last administered on 06/05/16 12:39; Start 06/03/16 at 12:30 Butorphanol Tartrate (Stadol) 0.5 mg PRN Q6HRS PRN IV PAIN; Start 06/04/16 at 09:00 Methylprednisolone Sodium Succinate (Solu-Medrol 40mg Vial) 60 mg BID IV Last administered on 06/05/16 12:41; Start 06/04/16 at 21:00 Oxycodone HCl (Roxicodone) 5 mg PRN TID PRN PO PAIN; Start 06/04/16 at 14:15 Regadenoson (Lexiscan) 0.4 mg 1X ONCE IV Last administered on 06/05/16 12:09; Start 06/05/16 at 11:30; Stop 06/05/16 at 11:31; Status DC Active Scripts Active Solu-Medrol 40 Mg Vial (Methylprednisolone Sod Succ/Pf) 40 Mg/1 Ml Vial 60 Mg IV Q8HRS Lisinopril 2.5 Mg Tablet 2.5 Mg PO DAILY Enoxaparin Sodium 40 Mg/0.4 Ml Disp.syrin 40 Mg SQ Q24H Reported Calcium (Calcium Carbonate) 500 Mg Tab.chew 500 Mg PO Multivitamins (Multivitamin) 1 Each Capsule 1 Each PO Folic Acid 1 Mg Tablet 1 Tab PO DAILY Myrbetriq (Mirabegron) 25 Mg Tab.er.24h 25 Mg PO DAILY Isosorbide Mononitrate 20 Mg Tablet 60 Mg PO DAILY Probiotic (Lactobacillus Combo No.11) 1 Each Cap.sprink 1 Each PO DAILY Fish Oil ([place]-3 Fatty Acids) 300 Mg Capsule 1,200 Mg PO BID Crestor (Rosuvastatin Calcium) 40 Mg Tablet 1 Tab PO DAILY Aspir 81 (Aspirin) 81 Mg Tablet. 1 Tab PO DAILY Advair 250-50 Diskus (Fluticasone/Salmeterol) 1 Each Disk.w.dev 1 Puff IH BID Plavix (Clopidogrel Bisulfate) 75 Mg Tablet 75 Mg PO DAILY Atenolol 25 Mg Tablet 25 Mg PO DAILY Mirapex (Pramipexole Di-Hcl) 0.25 Mg Tablet 0.25 Mg PO Oxycodone Hcl 10 Mg Tablet 10 Mg PO PRN TID PRN Spiriva (Tiotropium [place]) 18 Mcg Cap.w.dev 2 Inh IH DAILY Albuterol Sulfate Oral Syrup (Albuterol Sulfate) 2 Mg/5 Ml Syrup 4 Mg PO QID Meloxicam 7.5 Mg Tablet 7.5 Mg PO DAILY Prilosec Otc (Omeprazole Magnesium) 20 Mg Tablet. 20 Mg PO DAILY Famotidine 20 Mg Tablet 20 Mg PO BID Vitals/I & O Vital Sign - Last 24 Hours 06/04/16 06/04/16 06/04/16 06/04/16 15:01 16:00 19:40 20:00 Temp 98.5 98.2 98.5 98.2 Pulse 90 93 Resp 26 22 B/P 134/58 137/60 Pulse Ox 92 89 O2 Delivery Venturi Mask Venturi Mask Venturi Mask Venturi Mask O2 Flow Rate 6.0 6.0 06/04/16 06/04/16 06/05/16 06/05/16 20:22 23:45 01:15 02:50 Temp 97.2 97.2 Pulse 97 Resp 24 B/P 103/51 Pulse Ox 94 93 O2 Delivery Venturi Mask BiPAP/CPAP BiPAP/CPAP BiPAP/CPAP O2 Flow Rate 6.0 06/05/16 06/05/16 06/05/16 06/05/16 03:50 04:00 06:08 07:00 Temp 98.1 98.1 Pulse 109 106 Resp 22 B/P 120/61 Pulse Ox 98 90 O2 Delivery BiPAP/CPAP BiPAP/CPAP Venturi Mask 06/05/16 06/05/16 06/05/16 06/05/16 07:16 08:00 10:42 12:39 Temp 98.1 98.1 Pulse 108 108 Resp 23 B/P 146/69 146/69 Pulse Ox 92 92 O2 Delivery Venturi Mask Venturi Mask Venturi Mask O2 Flow Rate 6.0 6.0 06/05/16 06/05/16 12:39 12:40 Pulse 108 108 B/P 146/69 146/69 Intake and Output 06/04/16 06/04/16 06/05/16 15:00 23:00 07:00 Intake Total 720 ml 240 ml Output Total 140 ml 200 ml 500 ml Balance 580 ml 40 ml -500 ml AFUA DAVISONL K III DO Jun 05, 2016 13:26
[2016-06-05] MEDS: GUAIFENESIN ER 600 MG TABLET.ER PO SCH ×2 (14:06→20:38)
--- NOTE | 2016-06-05 14:19 | PDOC ---
PULMONARY PROGRESS NOTES Subjective pt still soa with exertion Vitals Vital Signs Date Time Temp Pulse Resp B/P Pulse Ox O2 Delivery O2 Flow Rate FiO2 06/05/16 12:40 108 146/69 06/05/16 10:42 98.1 23 92 Venturi Mask 98.1 06/05/16 08:00 6.0 ROS: No Nausea, No Chest Pain, No Abdominal Pain, No Increase Cough General: Alert Lungs: Other (poor airfllow) Cardiovascular: S1 Abdomen: Soft Neuro Exam: Alert Extremities: No Edema Skin: Warm Labs Laboratory Tests Test 06/04/16 04:35 06/05/16 03:54 White Blood Count 10.0x10^3/uL (4.0-11.0) 11.0x10^3/uL (4.0-11.0) Red Blood Count 4.13x10^6/uL (3.50-5.40) 3.92x10^6/uL (3.50-5.40) Hemoglobin 11.1g/dL (12.0-15.5) 10.4g/dL (12.0-15.5) Hematocrit 35.5% (36.0-47.0) 33.5% (36.0-47.0) Mean Corpuscular Volume 86fL (79-100) 85fL (79-100) Mean Corpuscular Hemoglobin 27pg (25-35) 27pg (25-35) Mean Corpuscular Hemoglobin Concent 31g/dL (31-37) 31g/dL (31-37) Red Cell Distribution Width 17.7% (11.5-14.5) 17.4% (11.5-14.5) Platelet Count 324x10^3/uL (140-400) 326x10^3/uL (140-400) Neutrophils (%) (Auto) 84% (31-73) 88% (31-73) Lymphocytes (%) (Auto) 9% (24-48) 8% (24-48) Monocytes (%) (Auto) 7% (0-9) 4% (0-9) Eosinophils (%) (Auto) 0% (0-3) 0% (0-3) Basophils (%) (Auto) 0% (0-3) 0% (0-3) Neutrophils # (Auto) 8.4x10^3uL (1.8-7.7) 9.7x10^3uL (1.8-7.7) Lymphocytes # (Auto) 0.9x10^3/uL (1.0-4.8) 0.8x10^3/uL (1.0-4.8) Monocytes # (Auto) 0.7x10^3/uL (0.0-1.1) 0.5x10^3/uL (0.0-1.1) Eosinophils # (Auto) 0.0x10^3/uL (0.0-0.7) 0.0x10^3/uL (0.0-0.7) Basophils # (Auto) 0.0x10^3/uL (0.0-0.2) 0.0x10^3/uL (0.0-0.2) Sodium Level 145mmol/L (136-145) 147mmol/L (136-145) Potassium Level 4.6mmol/L (3.5-5.1) 4.5mmol/L (3.5-5.1) Chloride Level 104mmol/L (98-107) 105mmol/L (98-107) Carbon Dioxide Level 35mmol/L (21-32) 37mmol/L (21-32) Anion Gap 6 (6-14) 5 (6-14) Blood Urea Nitrogen 34mg/dL (7-20) 37mg/dL (7-20) Creatinine 0.6mg/dL (0.6-1.0) 0.7mg/dL (0.6-1.0) Estimated GFR (Cockcroft-Gault) 102.0 85.4 Glucose Level 149mg/dL (70-99) 132mg/dL (70-99) Calcium Level 9.6mg/dL (8.5-10.1) 9.3mg/dL (8.5-10.1) Laboratory Tests Test 06/05/16 03:54 White Blood Count 11.0x10^3/uL (4.0-11.0) Red Blood Count 3.92x10^6/uL (3.50-5.40) Hemoglobin 10.4g/dL (12.0-15.5) Hematocrit 33.5% (36.0-47.0) Mean Corpuscular Volume 85fL (79-100) Mean Corpuscular Hemoglobin 27pg (25-35) Mean Corpuscular Hemoglobin Concent 31g/dL (31-37) Red Cell Distribution Width 17.4% (11.5-14.5) Platelet Count 326x10^3/uL (140-400) Neutrophils (%) (Auto) 88% (31-73) Lymphocytes (%) (Auto) 8% (24-48) Monocytes (%) (Auto) 4% (0-9) Eosinophils (%) (Auto) 0% (0-3) Basophils (%) (Auto) 0% (0-3) Neutrophils # (Auto) 9.7x10^3uL (1.8-7.7) Lymphocytes # (Auto) 0.8x10^3/uL (1.0-4.8) Monocytes # (Auto) 0.5x10^3/uL (0.0-1.1) Eosinophils # (Auto) 0.0x10^3/uL (0.0-0.7) Basophils # (Auto) 0.0x10^3/uL (0.0-0.2) Sodium Level 147mmol/L (136-145) Potassium Level 4.5mmol/L (3.5-5.1) Chloride Level 105mmol/L (98-107) Carbon Dioxide Level 37mmol/L (21-32) Anion Gap 5 (6-14) Blood Urea Nitrogen 37mg/dL (7-20) Creatinine 0.7mg/dL (0.6-1.0) Estimated GFR (Cockcroft-Gault) 85.4 Glucose Level 132mg/dL (70-99) Calcium Level 9.3mg/dL (8.5-10.1) Medications Active Scripts Medications Dose Route/Sig Days Date Category Calcium (Calcium Carbonate) 500 Mg Tab.chew 500 Mg PO 05/30/16 Reported Multivitamins (Multivitamin) 1 Each Capsule 1 Each PO 05/30/16 Reported Folic Acid 1 Mg Tablet 1 Tab PO DAILY 05/30/16 Reported Myrbetriq (Mirabegron) 25 Mg Tab.er.24h 25 Mg PO DAILY 05/30/16 Reported Isosorbide Mononitrate 20 Mg Tablet 60 Mg PO DAILY 05/30/16 Reported Probiotic (Lactobacillus Combo No.11) 1 Each Cap.sprink 1 Each PO DAILY 05/30/16 Reported Fish Oil ([place]-3 Fatty Acids) 300 Mg Capsule 1,200 Mg PO BID 05/30/16 Reported Crestor (Rosuvastatin Calcium) 40 Mg Tablet 1 Tab PO DAILY 05/30/16 Reported Aspir 81 (Aspirin) 81 Mg Tablet. 1 Tab PO DAILY 05/30/16 Reported Advair 250-50 Diskus (Fluticasone/Salmeterol) 1 Each Disk.w.dev 1 Puff IH BID 05/30/16 Reported Plavix (Clopidogrel Bisulfate) 75 Mg Tablet 75 Mg PO DAILY 02/28/16 Reported Atenolol 25 Mg Tablet 25 Mg PO DAILY 02/28/16 Reported Mirapex (Pramipexole Di-Hcl) 0.25 Mg Tablet 0.25 Mg PO 02/28/16 Reported Oxycodone Hcl 10 Mg Tablet 10 Mg PO PRN 02/28/16 Reported Spiriva (Tiotropium [place]) 18 Mcg Cap.w.dev 2 Inh IH DAILY 02/28/16 Reported Albuterol Sulfate Oral Syrup (Albuterol Sulfate) 2 Mg/5 Ml Syrup 4 Mg PO QID 02/28/16 Reported Meloxicam 7.5 Mg Tablet 7.5 Mg PO DAILY 02/28/16 Reported Prilosec Otc (Omeprazole Magnesium) 20 Mg Tablet.dr 20 Mg PO DAILY 02/28/16 Reported Famotidine 20 Mg Tablet 20 Mg PO BID 02/28/16 Reported Impression . 1. [id number] hypercapnic and hypoxic respiratory failure secondary to acute exacerbation of chronic obstructive pulmonary disease and bibasilar pneumonia and Narcotics 2. Abnormal chest x-ray with bibasilar interstitial infiltrates. 3. Underlying severe chronic obstructive pulmonary disease, which is oxygen dependent and uses Trilogy ventilator at nighttime. 4. Ongoing tobacco consumption. 5. Elevated troponin level Plan . possible MPI repeat cxr PO steroids d/c antibx BIPAP qhs adjust pressures GI and DVT PROPH avoid benzos PRETTY VILA MD Jun 05, 2016 14:19
--- NOTE | 2016-06-05 14:28 | RAD ---
APPROVED REPORT Test Type: Pharmacological Stress Nurse/Tech: RELL Babin RN Test Indications: Dyspnea, abnormal ECG Cardiac History: HTN, PCI, smoker, see EHR Medications: see EHR Medical History: COPD, see EHR Resting ECG: ST Resting Heart Rate: 102 bpm Resting Blood Pressure: 138/70mmHg Pretest Chest Pain: No chest pain Nurse/Tech Notes Lungs diminished to bases, clear no wheezing. Heart tones WNL Consent: The procedure was explained to the patient in lay terms. Informed consent was witnessed. Philip eout was entered into [employer]. History and Stress Test performed by RT Starla (Giovanni) (N) Pharm. Details Pharmacologic stress testing was performed using 0.4mg per 5ml of regadenoson given intravenously ove r 7-10 seconds. Stress Symptoms Dyspnea, reports chest pressure lasting approx. 1 min. POST EXERCISE Reason for Termination: Infusion complete Max HR: 120 bpm 88% of Maximum Predicted HR: 136 bpm Max Blood Pressure: 180/61mmHg Chest Pain: Yes. Chest pressure. Arrhythmia: No. ST Change: No. INTERPRETATION Stress EKG Conclusion: The resting EKG showed a sinus tachycardia with mild nonspecific ST-T wave vinicio nges. The stress EKG showed no significant changes from baseline. No EKG evidence of stress-induced ischemia. Imaging Protocol IMAGE PROTOCOL: Rest Tc-99m/stress Tc-99m 1 day Rest: Stress: Viability: Radiopharm.Tc99m [id number] Sestamibi Dose11.5mCi 35.9mCi Duration 15min. 10min. Img Date 06/05/2016 06/05/2016 Inj-Img [id number]. 60min. Rest Admin Site:IV - Right WristAdministrator:RT Starla (Giovanni)(N) Stress Admin Site: IV - Right WristAdministrator: VIVIAN Ovalles STRESS DATA End Diast. Vol.65.0mlAv. Heart Rate91.0bpm End Syst. Vol.21.0mlCO Index BSA0.0L/min Myocardial Ytpm952.0gEject. Rojvacuv62.0% Stress Rates Pk. Fill Rate5.63EDV/secLVtime Pk. Fill 98.11msec Pk. Empty Rate5.59ESV/secLVtime Pk. Eject86.94msec 1/3 Pk. Fill3.07EDV/sec Stress Scores Regional WT3.00Summed WT31.00 Regional WM0.00Summed WM6.00 LV Perfusion The stress scans show a small defect in the distal inferior lateral wall. The rest scans showed no significant defects. Nuclear imaging shows a small reversible defect in the distal inferior lateral wall. Wall Motion Normal left ventricular systolic function with an ejection fraction of 68%. LV Perf. Quant 17 Seg. SSS1.00 17 Seg. SRS0.00 17 Seg. SDS1.00 Stress Defect Extent (% LAD)0.00Rest Defect Extent (% LAD)0.00Rev. Defect Extent (% LAD)0.00 Stress Defect Extent (% LCX) 15.00Rest Defect Extent (% LCX)0.00Rev. Defect Extent (% LCX)15.00 Stress Defect Extent (% RCA)0.00Rest Defect Extent (% RCA)0.00Rev. Defect Extent (% RCA)0.00 Stress Defect Extent (% EBONI)4.60Rest Defect Extent (% EBONI)0.00Rev. Defect Extent (% EBONI)4.30 Conclusion 1. No EKG evidence of stress-induced ischemia. 2. Nuclear imaging shows a small area of reversible ischemia in the distal inferior lateral wall. 3. Normal left ventricular systolic function with an ejection fraction of 68%. 4. Moderate risk Lexiscan nuclear stress test.
[2016-06-05 14:44] VITALS: BP 136/71
[2016-06-05] MEDS: PREDNISONE 20 MG TABLET PO SCH (16:31)
[2016-06-05 19:48] VITALS: BP 133/67
[2016-06-05] MEDS: ATORVASTATIN CALCIUM 40 MG TABLET. PO SCH (20:34)
[2016-06-05] MEDS: PRAMIPEXOLE 0.25 MG TABLET. PO SCH (20:38)
[2016-06-05] MEDS: ALPRAZOLAM 0.25 MG TABLET PO PRN (20:38)
[2016-06-05 23:30] VITALS: BP 105/63
[2016-06-06] MEDS: KETOROLAC TROMETHAMINE 30 MG/ML SYRINGE. IV PRN ×2 (02:43→17:13)
[2016-06-06 02:50] VITALS: BP 139/70
[2016-06-06] MEDS: IPRATRPIUM/ALBUTEROL 0.5/2.5MG 3 ML NEBU. NEB SCH ×6 (03:40→23:53)
[2016-06-06 04:13] LABS: BASO % 0 % (0-3); EOS % 0 % (0-3); HEMATOCRIT 34.4 % (36.0-47.0); HEMOGLOBIN 10.9 g/dL (12.0-15.5); LYMPH # 0.9 x10^3/uL (1.0-4.8); LYMPH % 8 % (24-48); MEAN CORPUSCULAR HEMOGLOBIN 27 pg (25-35); MEAN CORPUSCULAR HGB CONC 32 g/dL (31-37); MEAN CORPUSCULAR VOLUME 84 fL (79-100); MONO % 8 % (0-9); NEUT % 85 % (31-73); PLATELET COUNT 359 x10^3/uL (140-400); RED BLOOD COUNT 4.09 x10^6/uL (3.50-5.40); RED CELL DISTRIBUTION WIDTH 17.3 % (11.5-14.5); WHITE BLOOD COUNT 11.5 x10^3/uL (4.0-11.0)
[2016-06-06 04:29] LABS: CALCIUM 9.2 mg/dL (8.5-10.1); CREATININE 0.7 mg/dL (0.6-1.0); GFR 85.4; POTASSIUM 4.5 mmol/L (3.5-5.1)
[2016-06-06 07:00] VITALS: BP 146/71
[2016-06-06] MEDS ORDERED: CONTRAST GIVEN MC PRN (08:15)
[2016-06-06] MEDS ORDERED: IOHEXOL 300 MG/ML 75 ML VIAL IV ONE (08:45)
[2016-06-06] MEDS: DOCUSATE SODIUM 100 MG CAPSULE PO SCH (09:00)
--- NOTE | 2016-06-06 09:48 | RAD ---
CTA of the chest with contrast, 06/06/2016: History: Respiratory failure, possible pulmonary emboli Multidetector CT imaging was performed following an IV bolus injection of iodinated contrast material. Multiplanar reconstructions were produced including coronal MIP images. The main and lobar pulmonary arteries are well opacified and no filling defects are seen to suggest pulmonary emboli. Some of the smaller pulmonary arteries in the lower chest are less clearly delineated due to motion related artifacts. No definite pulmonary emboli are seen. There is moderate calcific plaquing of the thoracic aorta without evidence of aneurysm. Moderate scattered coronary artery calcifications are present. The heart is not enlarged. No mediastinal or hilar adenopathy is seen. Emphysematous changes are evident. There are mild reticulonodular opacities in the periphery of the lungs, best seen in the lung bases. There is blurring of these opacities in the lung bases due to the motion artifact. The findings in the left base have worsened since 05/31/2016. No pleural fluid is evident. IMPRESSION: 1. No CT evidence of central pulmonary emboli. 2. Extensive calcific plaquing of the aorta and coronary arteries. 3. Emphysema. 4. Mild reticulonodular peripheral parenchymal opacities in the lung bases have worsened on the left since 05/31/2016. The findings suggest pneumonia, possibly superimposed upon fibrosis. PQRS Compliance Statement: One or more of the following individualized dose reduction techniques were utilized for this examination: 1. Automated exposure control 2. Adjustment of the mA and/or kV according to patient size 3. Use of iterative reconstruction technique
[2016-06-06 10:45] VITALS: BP 120/75
[2016-06-06] MEDS ORDERED: LOPERAMIDE 2 MG/10 ML ORAL SOLUTION. PO PRN (10:45)
[2016-06-06] MEDS: ENOXAPARIN 40 MG/0.4 ML DISP.SYRIN. SQ SCH (11:00)
[2016-06-06] MEDS: CLOPIDOGREL BISULFATE 75 MG TABLET PO SCH (11:03)
[2016-06-06] MEDS: ASPIRIN ENTERIC COATED 81 MG TABLET.DR. PO SCH (11:04)
[2016-06-06] MEDS: MIRABEGRON 25 MG TAB.ER.24H PO SCH (11:04)
[2016-06-06] MEDS: LISINOPRIL 2.5 MG TABLET PO SCH (11:04)
[2016-06-06] MEDS: OMEGA-3 FATTY ACIDS/FISH OIL 1,000 MG CAPSULE. PO SCH (11:04)
[2016-06-06] MEDS: MELOXICAM 7.5 MG TABLET PO SCH (11:05)
[2016-06-06] MEDS: LACTOBACILLUS ACIDOPH & BULGAR 1 TABLET. PO SCH (11:05)
[2016-06-06] MEDS: FOLIC ACID 1 MG TABLET PO SCH (11:05)
[2016-06-06] MEDS: PREDNISONE 20 MG TABLET PO SCH (11:05)
[2016-06-06] MEDS: FAMOTIDINE 20 MG TABLET. PO SCH ×2 (11:05→21:49)
[2016-06-06] MEDS: ATENOLOL 25 MG TABLET PO SCH (11:06)
[2016-06-06] MEDS: GUAIFENESIN ER 600 MG TABLET.ER PO SCH ×2 (11:11→21:49)
--- NOTE | 2016-06-06 12:30 | PDOC ---
PROGRESS NOTES Chief Complaint Chief Complaint 1. Acute hypercapnic hypoxic respiratory failure present on admission. 2. Chronic respiratory failure. 3. Chronic obstructive pulmonary disease. 4. Prior history of coronary artery disease with mild elevation of troponins. 5. Hypertension. 6. Hyperlipidemia. 7. Leukocytosis - resolved History of Present Illness History of Present Illness Patient was awake, alert and had no new complains, was sitting in her bed, she reported no acute events overnight, RN reported some loose stools so Imodium was ordered, she is scheduled to have cardiac cath procedure today. plan of care was discussed with family and RN. Vitals Vitals Vital Signs Date Time Temp Pulse Resp B/P Pulse Ox O2 Delivery O2 Flow Rate FiO2 06/06/16 11:48 92 Venturi Mask 6.0 06/06/16 11:06 101 120/75 06/06/16 10:45 98.0 22 98.0 Physical Exam General: Alert, Cooperative, No acute distress Heart: Normal S1, Normal S2, Other (Slightly tachycardic) Lungs: Other (poor airfllow) Abdomen: Soft, No tenderness Extremities: Normal pulses, No tenderness/swelling Skin: No rashes, No significant lesion Labs LABS Laboratory Tests Test 06/06/16 03:45 White Blood Count 11.5x10^3/uL (4.0-11.0) Red Blood Count 4.09x10^6/uL (3.50-5.40) Hemoglobin 10.9g/dL (12.0-15.5) Hematocrit 34.4% (36.0-47.0) Mean Corpuscular Volume 84fL (79-100) Mean Corpuscular Hemoglobin 27pg (25-35) Mean Corpuscular Hemoglobin Concent 32g/dL (31-37) Red Cell Distribution Width 17.3% (11.5-14.5) Platelet Count 359x10^3/uL (140-400) Neutrophils (%) (Auto) 85% (31-73) Lymphocytes (%) (Auto) 8% (24-48) Monocytes (%) (Auto) 8% (0-9) Eosinophils (%) (Auto) 0% (0-3) Basophils (%) (Auto) 0% (0-3) Neutrophils # (Auto) 9.8x10^3uL (1.8-7.7) Lymphocytes # (Auto) 0.9x10^3/uL (1.0-4.8) Monocytes # (Auto) 0.9x10^3/uL (0.0-1.1) Eosinophils # (Auto) 0.0x10^3/uL (0.0-0.7) Basophils # (Auto) 0.0x10^3/uL (0.0-0.2) Sodium Level 146mmol/L (136-145) Potassium Level 4.5mmol/L (3.5-5.1) Chloride Level 106mmol/L (98-107) Carbon Dioxide Level 38mmol/L (21-32) Anion Gap 2 (6-14) Blood Urea Nitrogen 46mg/dL (7-20) Creatinine 0.7mg/dL (0.6-1.0) Estimated GFR (Cockcroft-Gault) 85.4 Glucose Level 168mg/dL (70-99) Calcium Level 9.2mg/dL (8.5-10.1) Review of Systems Review of Systems No new complains reported, improved SOB and no CP reported, was afebrile, leukocytosis resolved, Assessment and Plan Assessmemt and Plan ASSESSMENT Problems 1. Acute hypercapnic hypoxic respiratory failure present on admission. 2. Chronic respiratory failure. 3. Chronic obstructive pulmonary disease. 4. Prior history of coronary artery disease with mild elevation of troponin. 5. Hypertension. 6. Hyperlipidemia. 7. Leukocytosis - resolved. Plan: Cardiology scheduled her for cardiac cath procedure today Continue telemetry monitoring Monitor daily labs- CBC, BMP, BUN and Cr Continue light PT/OT as long as oxygen saturations are maintained without increased work of breathing Continue current pain control Continue Solumedrol BID Continue duonebs Appreciate subspecialty input and recommendations Discussed with RN, patient and Problems: Comment Review of Relevant I have reviewed the following items afshin (where applicable) has been applied. Labs Laboratory Tests Test 06/05/16 03:54 06/06/16 03:45 White Blood Count 11.0x10^3/uL (4.0-11.0) 11.5x10^3/uL (4.0-11.0) Red Blood Count 3.92x10^6/uL (3.50-5.40) 4.09x10^6/uL (3.50-5.40) Hemoglobin 10.4g/dL (12.0-15.5) 10.9g/dL (12.0-15.5) Hematocrit 33.5% (36.0-47.0) 34.4% (36.0-47.0) Mean Corpuscular Volume 85fL (79-100) 84fL (79-100) Mean Corpuscular Hemoglobin 27pg (25-35) 27pg (25-35) Mean Corpuscular Hemoglobin Concent 31g/dL (31-37) 32g/dL (31-37) Red Cell Distribution Width 17.4% (11.5-14.5) 17.3% (11.5-14.5) Platelet Count 326x10^3/uL (140-400) 359x10^3/uL (140-400) Neutrophils (%) (Auto) 88% (31-73) 85% (31-73) Lymphocytes (%) (Auto) 8% (24-48) 8% (24-48) Monocytes (%) (Auto) 4% (0-9) 8% (0-9) Eosinophils (%) (Auto) 0% (0-3) 0% (0-3) Basophils (%) (Auto) 0% (0-3) 0% (0-3) Neutrophils # (Auto) 9.7x10^3uL (1.8-7.7) 9.8x10^3uL (1.8-7.7) Lymphocytes # (Auto) 0.8x10^3/uL (1.0-4.8) 0.9x10^3/uL (1.0-4.8) Monocytes # (Auto) 0.5x10^3/uL (0.0-1.1) 0.9x10^3/uL (0.0-1.1) Eosinophils # (Auto) 0.0x10^3/uL (0.0-0.7) 0.0x10^3/uL (0.0-0.7) Basophils # (Auto) 0.0x10^3/uL (0.0-0.2) 0.0x10^3/uL (0.0-0.2) Sodium Level 147mmol/L (136-145) 146mmol/L (136-145) Potassium Level 4.5mmol/L (3.5-5.1) 4.5mmol/L (3.5-5.1) Chloride Level 105mmol/L (98-107) 106mmol/L (98-107) Carbon Dioxide Level 37mmol/L (21-32) 38mmol/L (21-32) Anion Gap 5 (6-14) 2 (6-14) Blood Urea Nitrogen 37mg/dL (7-20) 46mg/dL (7-20) Creatinine 0.7mg/dL (0.6-1.0) 0.7mg/dL (0.6-1.0) Estimated GFR (Cockcroft-Gault) 85.4 85.4 Glucose Level 132mg/dL (70-99) 168mg/dL (70-99) Calcium Level 9.3mg/dL (8.5-10.1) 9.2mg/dL (8.5-10.1) Laboratory Tests Test 06/06/16 03:45 White Blood Count 11.5x10^3/uL (4.0-11.0) Red Blood Count 4.09x10^6/uL (3.50-5.40) Hemoglobin 10.9g/dL (12.0-15.5) Hematocrit 34.4% (36.0-47.0) Mean Corpuscular Volume 84fL (79-100) Mean Corpuscular Hemoglobin 27pg (25-35) Mean Corpuscular Hemoglobin Concent 32g/dL (31-37) Red Cell Distribution Width 17.3% (11.5-14.5) Platelet Count 359x10^3/uL (140-400) Neutrophils (%) (Auto) 85% (31-73) Lymphocytes (%) (Auto) 8% (24-48) Monocytes (%) (Auto) 8% (0-9) Eosinophils (%) (Auto) 0% (0-3) Basophils (%) (Auto) 0% (0-3) Neutrophils # (Auto) 9.8x10^3uL (1.8-7.7) Lymphocytes # (Auto) 0.9x10^3/uL (1.0-4.8) Monocytes # (Auto) 0.9x10^3/uL (0.0-1.1) Eosinophils # (Auto) 0.0x10^3/uL (0.0-0.7) Basophils # (Auto) 0.0x10^3/uL (0.0-0.2) Sodium Level 146mmol/L (136-145) Potassium Level 4.5mmol/L (3.5-5.1) Chloride Level 106mmol/L (98-107) Carbon Dioxide Level 38mmol/L (21-32) Anion Gap 2 (6-14) Blood Urea Nitrogen 46mg/dL (7-20) Creatinine 0.7mg/dL (0.6-1.0) Estimated GFR (Cockcroft-Gault) 85.4 Glucose Level 168mg/dL (70-99) Calcium Level 9.2mg/dL (8.5-10.1) Microbiology 05/30/16 Blood Culture - Final, Complete NO GROWTH AFTER 5 DAYS Medications Current Medications Methylprednisolone Sodium Succinate (Solu-Medrol 125mg Vial) 125 mg 1X ONCE IV Last administered on 05/30/16 08:31; Start 05/30/16 at 07:45; Stop 05/30/16 at 07:52; Status DC Isosorbide Mononitrate (Imdur) 60 mg 1X ONCE PO Last administered on 09:02; Start 05/30/16 at 08:30; Stop 05/30/16 at 08:31; Status DC Albuterol/ Ipratropium 3 ml 3 ml 1X ONCE NEB Last administered on 05/30/16 08 :44; Start 05/30/16 at 08:30; Stop 05/30/16 at 08:31; Status DC Ceftriaxone Sodium 1 gm/ Sodium Chloride 100 ml @ 200 mls/hr Q24H IV Last administered on 06/04/16 09:01; Start 05/31/16 at 09:00; Stop 06/05/16 at 14:01 ; Status DC Azithromycin 500 mg/Sodium Chloride 250 ml @ 250 mls/hr Q24H IV Last administered on 06/01/16 09:14; Start 05/31/16 at 09:00; Stop 06/02/16 at 08:59 ; Status DC Azithromycin 250 ml @ 250 mls/hr 1X ONCE IV ; Start 05/30/16 at 09:15; Stop at 10:14; Status DC Ceftriaxone Sodium (Rocephin 1gm Ivpb For Omni) 50 ml @ 100 mls/hr 1X ONCE IV Last administered on 05/30/16 10:18; Start 05/30/16 at 09:15; Stop 05/30/16 at 09:44; Status DC Ondansetron HCl 4 mg 4 mg PRN Q8HRS PRN IV NAUSEA/VOMITING; Start 05/30/16 at 10:00; Stop 05/31/16 at 09:59; Status DC Sodium Chloride (Iv Sodium Chloride 0.9% 1000ml Bag) 1,000 ml @ 100 mls/hr Q10H IV ; Start 05/30/16 at 09:48; Stop 05/31/16 at 09:47; Status DC Acetaminophen (Tylenol) 650 mg PRN Q4HRS PRN PO FEVER; Start 05/30/16 at 10:00 ; Stop 05/31/16 at 09:59; Status DC Albuterol/ Ipratropium (Duoneb) 3 ml RTQID NEB Last administered on 05/30/16 10:50; Start 05/30/16 at 12:00; Stop 05/30/16 at 16:32; Status DC Methylprednisolone Sodium Succinate (Solu-Medrol 40mg Vial) 40 mg Q8HRS IV Last administered on 05/31/16 05:50; Start 05/30/16 at 14:00; Stop 05/31/16 at 10:27; Status DC Enoxaparin Sodium (Lovenox 40mg Syringe) 40 mg Q24H SQ Last administered on 06/05 12:56; Start 05/30/16 at 11:00 Clopidogrel Bisulfate (Plavix) 75 mg DAILY PO Last administered on 06/06/16 11: 03; Start 05/30/16 at 14:30 Aspirin (Ecotrin) 81 mg DAILYWBKFT PO Last administered on 06/06/16 11:04; Start 05/30/16 at 14:15 Atenolol (Tenormin) 25 mg DAILY PO Last administered on 06/06/16 11:06; Start 05/30/16 at 15:00 Aspirin (Ecotrin) 81 mg DAILY PO ; Start 05/31/16 at 09:00; Status UNV Famotidine (Pepcid) 20 mg BID PO Last administered on 06/06/16 11:05; Start at 21:00 Folic Acid (Folic Acid) 1 mg DAILY PO Last administered on 06/06/16 11:05; Start 05/31/16 at 09:00 Isosorbide Mononitrate (Imdur) 60 mg DAILY PO Last administered on 06/05/16 12: 40; Start 05/31/16 at 09:00 Meloxicam (Mobic) 7.5 mg DAILY PO Last administered on 06/06/16 11:05; Start at 09:00 Mirabegron (Myrbetriq) 25 mg DAILY PO Last administered on 06/06/16 11:04; Start 05/31/16 at 09:00 Budesonide (Pulmicort) 0.5 mg RTBID NEB Last administered on 06/05/16 07:13; Start 05/30/16 at 20:00; Stop 06/05/16 at 14:01; Status DC Lactobacillus Acidophilus (Bacid, Christa-Bid) 1 tab DAILY PO Last administered on 06/06/16 11:05; Start 05/31/16 at 09:00 Fish Oil (Fish Oil) 1,000 mg DAILY PO Last administered on 06/06/16 11:04; Start 05/31/16 at 09:00 Atorvastatin Calcium (Lipitor) 80 mg QHS PO Last administered on 06/05/16 20:34 ; Start 05/30/16 at 21:00 Albuterol/ Ipratropium (Duoneb) 3 ml RTQID NEB Last administered on 05/31/16 07:19; Start 05/30/16 at 20:00; Stop 05/31/16 at 10:27; Status DC Oxycodone HCl (Roxicodone) 10 mg PRN Q6HRS PRN PO PAIN Last administered on 04:36; Start 05/30/16 at 18:00; Stop 05/31/16 at 10:28; Status DC Ketorolac Tromethamine (Toradol) 30 mg PRN Q6HRS PRN IV PAIN; Start 05/30/16 at 19:15; Stop 05/31/16 at 12:38; Status DC Albuterol/ Ipratropium (Duoneb) 3 ml Q4HRS NEB Last administered on 06/06/16 11 :46; Start 05/31/16 at 12:00 Methylprednisolone Sodium Succinate 60 mg 60 mg Q8HRS IV Last administered on 06:55; Start 05/31/16 at 14:00; Stop 06/04/16 at 14:10; Status DC Amino Acids/ Electrolytes (Clinimix E 2.75%-5% Solution) 1,000 ml @ 50 mls/hr Q20H IV Last administered on 05/31/16 13:27; Start 05/31/16 at 12:00; Stop at 16:43; Status DC Docusate Sodium (Colace) 100 mg DAILY PO Last administered on 06/03/16 08:12; Start 05/31/16 at 11:30 Pramipexole Dihydrochloride (miraPEX) 0.5 mg ONCE ONCE PO Last administered on 05/31/16 20:40; Start 05/31/16 at 19:57; Stop 05/31/16 at 19:58; Status DC Pramipexole Dihydrochloride (miraPEX) 0.25 mg QHS PO Last administered on 20:38; Start 06/01/16 at 21:00 Acetaminophen (Tylenol) 650 mg PRN Q6HRS PRN PO MILD PAIN / TEMP Last administered on 06/01/16 09:12; Start 06/01/16 at 02:45 Alprazolam (Xanax) 0.25 mg 1X ONCE PO Last administered on 06/01/16 09:37; Start 06/01/16 at 10:00; Stop 06/01/16 at 10:01; Status DC Butorphanol Tartrate (Stadol) 1 mg PRN Q6HRS PRN IV PAIN Last administered on 07:39; Start 06/01/16 at 10:45; Stop 06/04/16 at 08:54; Status DC Alprazolam 0.25 mg 0.25 mg PRN BID PRN PO ANXIETY / AGITATION Last administered on 06/05/16 20:38; Start 06/01/16 at 13:45 Amino Acids/ Electrolytes/ Dextrose (Clinimix E 4.25%-5% Solution) 1,000 ml @ 50 mls/hr Q20H IV Last administered on 06/02/16 14:08; Start 06/01/16 at 17:00 ; Stop 06/03/16 at 15:42; Status DC Fentanyl (Duragesic 25mcg/ Hr Patch) 1 patch 1X ONCE TD Last administered on 09:56; Start 06/02/16 at 09:30; Stop 06/02/16 at 09:31; Status DC Fentanyl Citrate (Fentanyl 2ml Vial) 25 mcg 1X ONCE IV Last administered on 09:46; Start 06/02/16 at 09:30; Stop 06/02/16 at 09:31; Status DC Ketorolac Tromethamine (Toradol) 10 mg PRN Q6HRS PRN IV PAIN Last administered on 06/06/16 02:43; Start 06/03/16 at 10:00; Stop 06/08/16 at 09:59 Oxycodone HCl (Roxicodone) 10 mg PRN TID PRN PO PAIN; Start 06/03/16 at 10:30; Stop 06/04/16 at 14:13; Status DC Lisinopril (Prinivil) 2.5 mg DAILY PO Last administered on 06/06/16 11:04; Start 06/03/16 at 12:30 Butorphanol Tartrate (Stadol) 0.5 mg PRN Q6HRS PRN IV PAIN; Start 06/04/16 at 09:00 Methylprednisolone Sodium Succinate (Solu-Medrol 40mg Vial) 60 mg BID IV Last administered on 06/05/16 12:41; Start 06/04/16 at 21:00; Stop 06/05/16 at 14:01; Status DC Oxycodone HCl (Roxicodone) 5 mg PRN TID PRN PO PAIN; Start 06/04/16 at 14:15 Regadenoson (Lexiscan) 0.4 mg 1X ONCE IV Last administered on 06/05/16 12:09; Start 06/05/16 at 11:30; Stop 06/05/16 at 11:31; Status DC Guaifenesin (Mucinex) 1,200 mg BID PO Last administered on 06/06/16 11:11; Start 06/05/16 at 14:00 Prednisone (Prednisone) 30 mg DAILY PO Last administered on 06/06/16 11:05; Start 06/05/16 at 15:00 Iohexol (Omnipaque 300 Mg/ml) 75 ml 1X ONCE IV Last administered on 06/06/16 08:53; Start 06/06/16 at 08:45; Stop 06/06/16 at 08:46; Status DC Info (Do NOT chart on this entry -- for MONITORING) 1 each PRN DAILY PRN MC SEE COMMENTS; Start 06/06/16 at 08:15; Stop 06/08/16 at 08:14 Loperamide HCl (Imodium) 2 mg PRN Q4HRS PRN PO DIARRHEA Last administered on 11:03; Start 06/06/16 at 10:45 Active Scripts Active Solu-Medrol 40 Mg Vial (Methylprednisolone Sod Succ/Pf) 40 Mg/1 Ml Vial 60 Mg IV Q8HRS Lisinopril 2.5 Mg Tablet 2.5 Mg PO DAILY Enoxaparin Sodium 40 Mg/0.4 Ml Disp.syrin 40 Mg SQ Q24H Reported Calcium (Calcium Carbonate) 500 Mg Tab.chew 500 Mg PO Multivitamins (Multivitamin) 1 Each Capsule 1 Each PO Folic Acid 1 Mg Tablet 1 Tab PO DAILY Myrbetriq (Mirabegron) 25 Mg Tab.er.24h 25 Mg PO DAILY Isosorbide Mononitrate 20 Mg Tablet 60 Mg PO DAILY Probiotic (Lactobacillus Combo No.11) 1 Each Cap.sprink 1 Each PO DAILY Fish Oil ([place]-3 Fatty Acids) 300 Mg Capsule 1,200 Mg PO BID Crestor (Rosuvastatin Calcium) 40 Mg Tablet 1 Tab PO DAILY Aspir 81 (Aspirin) 81 Mg Tablet.dr 1 Tab PO DAILY Advair 250-50 Diskus (Fluticasone/Salmeterol) 1 Each Disk.w.dev 1 Puff IH BID Plavix (Clopidogrel Bisulfate) 75 Mg Tablet 75 Mg PO DAILY Atenolol 25 Mg Tablet 25 Mg PO DAILY Mirapex (Pramipexole Di-Hcl) 0.25 Mg Tablet 0.25 Mg PO Oxycodone Hcl 10 Mg Tablet 10 Mg PO PRN TID PRN Spiriva (Tiotropium Grabill) 18 Mcg Cap.w.dev 2 Inh IH DAILY Albuterol Sulfate Oral Syrup (Albuterol Sulfate) 2 Mg/5 Ml Syrup 4 Mg PO QID Meloxicam 7.5 Mg Tablet 7.5 Mg PO DAILY Prilosec Otc (Omeprazole Magnesium) 20 Mg Tablet.dr 20 Mg PO DAILY Famotidine 20 Mg Tablet 20 Mg PO BID Vitals/I & O Vital Sign - Last 24 Hours 06/05/16 06/05/16 06/05/16 06/05/16 12:39 12:39 12:40 14:44 Temp 98.1 98.1 Pulse 108 108 108 91 Resp 22 B/P 146/69 146/69 146/69 136/71 Pulse Ox 91 O2 Delivery Venturi Mask 06/05/16 06/05/16 06/05/16 06/05/16 15:23 19:48 20:00 21:00 Temp 98.4 98.4 Pulse 94 Resp 18 B/P 133/67 Pulse Ox 92 O2 Delivery Venturi Mask Venturi Mask Venturi Mask O2 Flow Rate 6.0 6.0 6.0 6.0 06/05/16 06/05/16 06/06/16 06/06/16 23:21 23:30 02:08 02:50 Temp 96.8 97.0 96.8 97.0 Pulse 96 107 Resp 20 24 B/P 105/63 139/70 Pulse Ox 96 O2 Delivery BiPAP/CPAP BiPAP/CPAP BiPAP/CPAP BiPAP/CPAP 06/06/16 06/06/16 06/06/16 06/06/16 03:42 07:00 08:00 08:21 Temp 97.9 97.9 Pulse 97 Resp 22 B/P 146/71 Pulse Ox 90 92 O2 Delivery BiPAP/CPAP Venturi Mask Venturi Mask Venturi Mask O2 Flow Rate 6.0 6.0 06/06/16 06/06/16 06/06/16 06/06/16 10:45 11:04 11:06 11:48 Temp 98.0 98.0 Pulse 105 103 101 Resp 22 B/P 120/75 120/75 120/75 Pulse Ox 91 92 O2 Delivery Venturi Mask Venturi Mask O2 Flow Rate 6.0 Intake and Output 06/05/16 06/05/16 06/06/16 15:00 23:00 07:00 Output Total 400 ml Balance -400 ml GRACE DAVISON III DO Jun 06, 2016 12:30
--- NOTE | 2016-06-06 12:44 | PDOC ---
CARDIO Progress Notes Date and Time Date of Service 06/06/16 Time of Evaluation 1120 Subjective Subjective: No Chest Pain, No Palpitations, Other (on ventimask. breathing at baseline. productive cough) Vitals Vitals Vital Signs Date Time Temp Pulse Resp B/P Pulse Ox O2 Delivery O2 Flow Rate FiO2 06/06/16 11:48 92 Venturi Mask 6.0 06/06/16 11:06 101 120/75 06/06/16 10:45 98.0 22 98.0 Weight Weight [ ] Input and Output Intake and Output Intake and Output 06/06/16 07:00 Output Total 400 ml Balance -400 ml Output Urine Total 400 ml # Voids 2 # Bowel Movements 3 Laboratory Labs Laboratory Tests Test 06/06/16 03:45 White Blood Count 11.5x10^3/uL (4.0-11.0) Red Blood Count 4.09x10^6/uL (3.50-5.40) Hemoglobin 10.9g/dL (12.0-15.5) Hematocrit 34.4% (36.0-47.0) Mean Corpuscular Volume 84fL (79-100) Mean Corpuscular Hemoglobin 27pg (25-35) Mean Corpuscular Hemoglobin Concent 32g/dL (31-37) Red Cell Distribution Width 17.3% (11.5-14.5) Platelet Count 359x10^3/uL (140-400) Neutrophils (%) (Auto) 85% (31-73) Lymphocytes (%) (Auto) 8% (24-48) Monocytes (%) (Auto) 8% (0-9) Eosinophils (%) (Auto) 0% (0-3) Basophils (%) (Auto) 0% (0-3) Neutrophils # (Auto) 9.8x10^3uL (1.8-7.7) Lymphocytes # (Auto) 0.9x10^3/uL (1.0-4.8) Monocytes # (Auto) 0.9x10^3/uL (0.0-1.1) Eosinophils # (Auto) 0.0x10^3/uL (0.0-0.7) Basophils # (Auto) 0.0x10^3/uL (0.0-0.2) Sodium Level 146mmol/L (136-145) Potassium Level 4.5mmol/L (3.5-5.1) Chloride Level 106mmol/L (98-107) Carbon Dioxide Level 38mmol/L (21-32) Anion Gap 2 (6-14) Blood Urea Nitrogen 46mg/dL (7-20) Creatinine 0.7mg/dL (0.6-1.0) Estimated GFR (Cockcroft-Gault) 85.4 Glucose Level 168mg/dL (70-99) Calcium Level 9.2mg/dL (8.5-10.1) Microbiology Micro Microbiology 05/30/16 Blood Culture - Final, Complete NO GROWTH AFTER 5 DAYS Physical Exam HEENT: Neck Supple W Full Motion Chest: Symmetric LUNGS: Other (diminished throughout; on venti mask) Heart: S1S2, RRR Abdomen: Soft N/T Extremities: No Edema, No Calf Tenderness Neurology: alert, oriented, follow commands Assessment Assessment 1. Mild troponin elevation TTE with EF 45-50% with proximal inferior septal hypokinesis, otherwise, mild global hypokinesis. MPI with evidence of reversible ischemia in the distal inferior lateral wall. Recommend cardiac cath. B/R/A discuss and is agreeable. Plan for cardiac cath in am. 2. Acute respiratory failure with AE COPD and possible pneumonia improved. on venti mask per pulmonary 3. CAD 08/2011 LHC noted with patent stents to LAD, Dx, LCx and RCA. Diffuse plaquing to distal LCx. EF 55% with questionable inferior hypokinesis DAPT, atenolol. 4. HTN controlled. Continue regimen per BP trend 5. HLP Lipds on goal, continue with statin TIFFANY CARPIO APRN Jun 06, 2016 12:44
[2016-06-06] MEDS: ISOSORBIDE MONONITRATE ER 60 MG TAB.ER.24H PO SCH (13:24)
--- NOTE | 2016-06-06 15:26 | PDOC ---
PULMONARY PROGRESS NOTES Subjective pt still soa with exertion Vitals Vital Signs Date Time Temp Pulse Resp B/P Pulse Ox O2 Delivery O2 Flow Rate FiO2 06/06/16 13:24 83 137/60 06/06/16 11:48 92 Venturi Mask 6.0 06/06/16 10:45 98.0 22 98.0 ROS: No Nausea, No Chest Pain, No Abdominal Pain, No Increase Cough General: Alert Lungs: Other (poor airfllow) Cardiovascular: S1 Abdomen: Soft Neuro Exam: Alert Extremities: No Edema Skin: Warm Labs Laboratory Tests Test 06/05/16 03:54 06/06/16 03:45 White Blood Count 11.0x10^3/uL (4.0-11.0) 11.5x10^3/uL (4.0-11.0) Red Blood Count 3.92x10^6/uL (3.50-5.40) 4.09x10^6/uL (3.50-5.40) Hemoglobin 10.4g/dL (12.0-15.5) 10.9g/dL (12.0-15.5) Hematocrit 33.5% (36.0-47.0) 34.4% (36.0-47.0) Mean Corpuscular Volume 85fL (79-100) 84fL (79-100) Mean Corpuscular Hemoglobin 27pg (25-35) 27pg (25-35) Mean Corpuscular Hemoglobin Concent 31g/dL (31-37) 32g/dL (31-37) Red Cell Distribution Width 17.4% (11.5-14.5) 17.3% (11.5-14.5) Platelet Count 326x10^3/uL (140-400) 359x10^3/uL (140-400) Neutrophils (%) (Auto) 88% (31-73) 85% (31-73) Lymphocytes (%) (Auto) 8% (24-48) 8% (24-48) Monocytes (%) (Auto) 4% (0-9) 8% (0-9) Eosinophils (%) (Auto) 0% (0-3) 0% (0-3) Basophils (%) (Auto) 0% (0-3) 0% (0-3) Neutrophils # (Auto) 9.7x10^3uL (1.8-7.7) 9.8x10^3uL (1.8-7.7) Lymphocytes # (Auto) 0.8x10^3/uL (1.0-4.8) 0.9x10^3/uL (1.0-4.8) Monocytes # (Auto) 0.5x10^3/uL (0.0-1.1) 0.9x10^3/uL (0.0-1.1) Eosinophils # (Auto) 0.0x10^3/uL (0.0-0.7) 0.0x10^3/uL (0.0-0.7) Basophils # (Auto) 0.0x10^3/uL (0.0-0.2) 0.0x10^3/uL (0.0-0.2) Sodium Level 147mmol/L (136-145) 146mmol/L (136-145) Potassium Level 4.5mmol/L (3.5-5.1) 4.5mmol/L (3.5-5.1) Chloride Level 105mmol/L (98-107) 106mmol/L (98-107) Carbon Dioxide Level 37mmol/L (21-32) 38mmol/L (21-32) Anion Gap 5 (6-14) 2 (6-14) Blood Urea Nitrogen 37mg/dL (7-20) 46mg/dL (7-20) Creatinine 0.7mg/dL (0.6-1.0) 0.7mg/dL (0.6-1.0) Estimated GFR (Cockcroft-Gault) 85.4 85.4 Glucose Level 132mg/dL (70-99) 168mg/dL (70-99) Calcium Level 9.3mg/dL (8.5-10.1) 9.2mg/dL (8.5-10.1) Laboratory Tests Test 06/06/16 03:45 White Blood Count 11.5x10^3/uL (4.0-11.0) Red Blood Count 4.09x10^6/uL (3.50-5.40) Hemoglobin 10.9g/dL (12.0-15.5) Hematocrit 34.4% (36.0-47.0) Mean Corpuscular Volume 84fL (79-100) Mean Corpuscular Hemoglobin 27pg (25-35) Mean Corpuscular Hemoglobin Concent 32g/dL (31-37) Red Cell Distribution Width 17.3% (11.5-14.5) Platelet Count 359x10^3/uL (140-400) Neutrophils (%) (Auto) 85% (31-73) Lymphocytes (%) (Auto) 8% (24-48) Monocytes (%) (Auto) 8% (0-9) Eosinophils (%) (Auto) 0% (0-3) Basophils (%) (Auto) 0% (0-3) Neutrophils # (Auto) 9.8x10^3uL (1.8-7.7) Lymphocytes # (Auto) 0.9x10^3/uL (1.0-4.8) Monocytes # (Auto) 0.9x10^3/uL (0.0-1.1) Eosinophils # (Auto) 0.0x10^3/uL (0.0-0.7) Basophils # (Auto) 0.0x10^3/uL (0.0-0.2) Sodium Level 146mmol/L (136-145) Potassium Level 4.5mmol/L (3.5-5.1) Chloride Level 106mmol/L (98-107) Carbon Dioxide Level 38mmol/L (21-32) Anion Gap 2 (6-14) Blood Urea Nitrogen 46mg/dL (7-20) Creatinine 0.7mg/dL (0.6-1.0) Estimated GFR (Cockcroft-Gault) 85.4 Glucose Level 168mg/dL (70-99) Calcium Level 9.2mg/dL (8.5-10.1) Medications Active Scripts Medications Dose Route/Sig Days Date Category Calcium (Calcium Carbonate) 500 Mg Tab.chew 500 Mg PO 05/30/16 Reported Multivitamins (Multivitamin) 1 Each Capsule 1 Each PO 05/30/16 Reported Folic Acid 1 Mg Tablet 1 Tab PO DAILY 05/30/16 Reported Myrbetriq (Mirabegron) 25 Mg Tab.er.24h 25 Mg PO DAILY 05/30/16 Reported Isosorbide Mononitrate 20 Mg Tablet 60 Mg PO DAILY 05/30/16 Reported Probiotic (Lactobacillus Combo No.11) 1 Each Cap.sprink 1 Each PO DAILY 05/30/16 Reported Fish Oil ([place]-3 Fatty Acids) 300 Mg Capsule 1,200 Mg PO BID 05/30/16 Reported Crestor (Rosuvastatin Calcium) 40 Mg Tablet 1 Tab PO DAILY 05/30/16 Reported Aspir 81 (Aspirin) 81 Mg Tablet.dr 1 Tab PO DAILY 05/30/16 Reported Advair 250-50 Diskus (Fluticasone/Salmeterol) 1 Each Disk.w.dev 1 Puff IH BID 05/30/16 Reported Plavix (Clopidogrel Bisulfate) 75 Mg Tablet 75 Mg PO DAILY 02/28/16 Reported Atenolol 25 Mg Tablet 25 Mg PO DAILY 02/28/16 Reported Mirapex (Pramipexole Di-Hcl) 0.25 Mg Tablet 0.25 Mg PO 02/28/16 Reported Oxycodone Hcl 10 Mg Tablet 10 Mg PO PRN 02/28/16 Reported Spiriva (Tiotropium [place]) 18 Mcg Cap.w.dev 2 Inh IH DAILY 02/28/16 Reported Albuterol Sulfate Oral Syrup (Albuterol Sulfate) 2 Mg/5 Ml Syrup 4 Mg PO QID 02/28/16 Reported Meloxicam 7.5 Mg Tablet 7.5 Mg PO DAILY 02/28/16 Reported Prilosec Otc (Omeprazole Magnesium) 20 Mg Tablet.dr 20 Mg PO DAILY 02/28/16 Reported Famotidine 20 Mg Tablet 20 Mg PO BID 02/28/16 Reported Impression . 1. Kfecc-wn-dmyzvwe hypercapnic and hypoxic respiratory failure secondary to acute exacerbation of chronic obstructive pulmonary disease and bibasilar pneumonia and Narcotics 2. Abnormal chest x-ray with bibasilar interstitial infiltrates. 3. Underlying severe chronic obstructive pulmonary disease, which is oxygen dependent and uses Trilogy ventilator at nighttime. 4. Ongoing tobacco consumption. 5. Elevated troponin level Plan . Ct reviewed no PE, very mild infiltrate LLL cath in am PO steroids d/c antibx BIPAP qhs adjust pressures GI and DVT PROPH avoid benzos PRETTY VILA MD Jun 06, 2016 15:26
[2016-06-06 15:40] VITALS: BP 152/72
[2016-06-06] MEDS: NYSTATIN 100,000 UNITS/ML 5 ML ORAL.SUSP. SWSW SCH ×2 (17:13→21:48)
[2016-06-06 18:57] VITALS: BP 109/62
[2016-06-06] MEDS: PRAMIPEXOLE 0.25 MG TABLET. PO SCH (21:49)
[2016-06-06] MEDS: ATORVASTATIN CALCIUM 40 MG TABLET. PO SCH (21:49)
[2016-06-06] MEDS: ALPRAZOLAM 0.25 MG TABLET PO PRN (22:33)
[2016-06-06 23:09] VITALS: BP 108/60
[2016-06-07 02:36] VITALS: BP 119/59
[2016-06-07] MEDS: IPRATRPIUM/ALBUTEROL 0.5/2.5MG 3 ML NEBU. NEB SCH ×4 (03:40→16:03)
[2016-06-07 05:12] LABS: BASO % 0 % (0-3); EOS % 0 % (0-3); HEMATOCRIT 35.2 % (36.0-47.0); HEMOGLOBIN 10.8 g/dL (12.0-15.5); LYMPH # 1.6 x10^3/uL (1.0-4.8); LYMPH % 13 % (24-48); MEAN CORPUSCULAR HEMOGLOBIN 26 pg (25-35); MEAN CORPUSCULAR HGB CONC 31 g/dL (31-37); MEAN CORPUSCULAR VOLUME 86 fL (79-100); MONO % 7 % (0-9); NEUT % 80 % (31-73); PLATELET COUNT 376 x10^3/uL (140-400); RED CELL DISTRIBUTION WIDTH 17.6 % (11.5-14.5); WHITE BLOOD COUNT 12.6 x10^3/uL (4.0-11.0)
[2016-06-07 05:23] LABS: CALCIUM 9.3 mg/dL (8.5-10.1); CREATININE 0.5 mg/dL (0.6-1.0); GFR 125.9; POTASSIUM 4.2 mmol/L (3.5-5.1)
[2016-06-07] MEDS ORDERED: LIDOCAINE 2% 20 ML VIAL. ONE (07:06)
[2016-06-07] MEDS ORDERED: IOHEXOL 300 MG/ML 100ML VIAL. ONE ×2 (07:06→08:59)
[2016-06-07 07:22] VITALS: BP 154/63
[2016-06-07] MEDS ORDERED: FENTANYL PF 100 MCG/2 ML VIAL. ONE (08:10)
[2016-06-07] MEDS ORDERED: MIDAZOLAM HCL 2 MG/2 ML VIAL. ONE (08:10)
[2016-06-07] MEDS ORDERED: NITROGLYCERIN 200 MCG/2 ML SYRINGE FOR CATH/VASC LAB. ONE (08:10)
[2016-06-07] MEDS ORDERED: VERAPAMIL 5 MG/2 ML VIAL. ONE (08:10)
[2016-06-07] MEDS ORDERED: HEPARIN for IV BOLUS 10,000 UNIT/10 ML VIAL. ONE (08:10)
[2016-06-07] MEDS ORDERED: ADENOSINE 90 MG/30 ML VIAL. IV ONE (08:53)
[2016-06-07] MEDS: DOCUSATE SODIUM 100 MG CAPSULE PO SCH (09:00)
[2016-06-07 09:13] VITALS: BP 147/61
[2016-06-07] MEDS ORDERED: IOHEXOL 300 MG/ML 100ML VIAL. IART ONE (09:15)
[2016-06-07] MEDS ORDERED: VERAPAMIL 5 MG/2 ML VIAL. IART ONE (09:15)
[2016-06-07] MEDS ORDERED: NITROGLYCERIN 200 MCG/2 ML SYRINGE FOR CATH/VASC LAB. IART ONE (09:15)
[2016-06-07] MEDS ORDERED: FENTANYL PF 100 MCG/2 ML VIAL. IV ONE (09:15)
[2016-06-07] MEDS ORDERED: NITROGLYCERIN 4 MG/20 ML SYRINGE for CATH LAB. IV ONE (09:15)
[2016-06-07] MEDS ORDERED: MIDAZOLAM HCL 2 MG/2 ML VIAL. IV ONE (09:15)
[2016-06-07] MEDS ORDERED: HEPARIN for IV BOLUS 10,000 UNIT/10 ML VIAL. IART ONE (09:15)
[2016-06-07] MEDS ORDERED: ADENOSINE 90 MG in IV NORMAL SALINE 50ML 90 ML IV ONE (09:15)
[2016-06-07] MEDS ORDERED: LIDOCAINE 2% 20 ML VIAL. IJ ONE (09:15)
--- NOTE | 2016-06-07 09:26 | PDOC ---
MODERATE SEDATION ASSESSMENT RISKS/ALTERNATIVES Risks/Alternatives Risks and alternatives of this type of sedation and procedure discussed with: RISK/ALTERNATIVES: Patient H & P ON CHART H & P H & P on chart and reviewed for co-morbid conditions and appropriate labs. H&P ON CHART: Yes STATUS PREG STATUS ASSESSED: N/A MEDS/ALLERGIES REVIEWED Meds/Allergies Reviewed Medications and Allergies including time and route of recently administered narcotics and sedatives. MEDS/ALLERGIES REVIEWED: Yes ASA RATING ASA RATING: II AIRWAY ASSESSMENT Airway Assessment Airway patency, oral function limitations, presence of caps, crowns, dentures, partials, and ability to extend neck assessed. AIRWAY ASSESSMENT: Yes MALLAMPATI SCORE MALLAMPATI SCORE: II PRE-SEDATION ASSESSMENT PRE-SEDATION ASSESSMENT: Yes SAGAR SCHAFFER MD Jun 07, 2016 09:26
--- NOTE | 2016-06-07 09:41 | CARD ---
APPROVED REPORT Procedure(s) performed: 1. Left heart catheterization, selective coronary angiography via right cruz sradial approach 2. Fractional flow reserve measurement to the left anterior descending artery INDICATION The indication(s) include : non-STEMI . PROCEDURE NARRATIVE After explaining the risks, benefits and alternative options, informed consent was obtained from maren ent. Patient was brought to the cardiac [facility] Pre[facility]ement Counselor and right wrist was prepped and draped in the usual fashion after confirming a positive modified Trent's test. Arterial access was obtained in the [facility] radial artery and a 6 [place] sheath was inserted. 6 [place] Abdoulaye and 6 [place] JR4 catheters were used to perform selective angiography of the left and right coronary arteries. LVEDP and transaortic gradients remeasured. Since patient was found to have angiographically borderline significant stenosi s involving the left anterior descending artery, a decision was made to perform fractional flow reser ve measurement to this lesion to assess the physiologic significance. The left main coronary artery w as then engaged with a 6 [place] XB 3.5 guide catheter and the stenosis in the midsegment was crossed with Shiftg[employer] Verrata PressureWire. After administering intravenous adenosine per protocol, FFR measu rement was made that came back physiologically not significant at 0.87 and hence no interventions wer e performed. Patient tolerated the procedure well. Hemostasis was achieved using TR band. There wer e no immediate complications. The following findings were noted. FINDINGS 1. Hemodynamics: Left ventricular end-diastolic pressure of 28 mmHg. No pullback gradient across th e aortic valve. 2. Coronary angiography: a. The left main coronary artery arose from the left sinus of Valsalva, gave rise to the left anteri or descending and left circumflex arteries and did not show any significant stenosis. b. The left anterior descending artery showed 40-50% in-stent restenosis involving the midsegment th ere was found to be physiologically not significant based on FFR measurement of 0.87. The previously placed stent in the diagonal branch showed 20% in-stent restenosis. c. The left circumflex artery showed 20% in-stent restenosis involving the proximal segment. d. The right coronary artery was a large and dominant vessel arising from the right sinus of Valsalv a that showed a widely patent stent in the mid to distal segment. Conclusion Patent stents in the right coronary and left circumflex arteries and the diagonal branch of the left anterior descending artery. There is a 40-50% in-stent restenosis noted in the left anterior descendi ng artery that was physiologically not significant based on FFR measurement of 0.87. Recommendations Medical Therapy
[2016-06-07] MEDS: GUAIFENESIN ER 600 MG TABLET.ER PO SCH (09:55)
[2016-06-07] MEDS: CLOPIDOGREL BISULFATE 75 MG TABLET PO SCH (09:55)
[2016-06-07] MEDS: MELOXICAM 7.5 MG TABLET PO SCH (09:56)
[2016-06-07] MEDS: ATENOLOL 25 MG TABLET PO SCH (09:56)
[2016-06-07] MEDS: NYSTATIN 100,000 UNITS/ML 5 ML ORAL.SUSP. SWSW SCH (09:56)
[2016-06-07] MEDS: ASPIRIN ENTERIC COATED 81 MG TABLET.DR. PO SCH (09:57)
[2016-06-07] MEDS: LISINOPRIL 2.5 MG TABLET PO SCH (09:57)
[2016-06-07] MEDS: ISOSORBIDE MONONITRATE ER 60 MG TAB.ER.24H PO SCH (09:58)
[2016-06-07] MEDS: OMEGA-3 FATTY ACIDS/FISH OIL 1,000 MG CAPSULE. PO SCH (09:59)
[2016-06-07] MEDS ORDERED: IV 1/2 NORMAL SALINE 1,000 ML IV SCH (10:00)
[2016-06-07] MEDS: FOLIC ACID 1 MG TABLET PO SCH (10:01)
[2016-06-07] MEDS: FAMOTIDINE 20 MG TABLET. PO SCH (10:01)
[2016-06-07] MEDS: PREDNISONE 20 MG TABLET PO SCH (10:01)
[2016-06-07] MEDS: LACTOBACILLUS ACIDOPH & BULGAR 1 TABLET. PO SCH (10:02)
[2016-06-07] MEDS: KETOROLAC TROMETHAMINE 30 MG/ML SYRINGE. IV PRN ×2 (10:13→16:35)
[2016-06-07] MEDS: MIRABEGRON 25 MG TAB.ER.24H PO SCH (10:28)
[2016-06-07] MEDS: ENOXAPARIN 40 MG/0.4 ML DISP.SYRIN. SQ SCH (10:29)
[2016-06-07 11:15] VITALS: BP 86/46
--- NOTE | 2016-06-07 11:58 | PDOC ---
PROGRESS NOTES Chief Complaint Chief Complaint 1. Acute hypercapnic hypoxic respiratory failure present on admission. 2. Chronic respiratory failure. 3. Chronic obstructive pulmonary disease. 4. Prior history of coronary artery disease with mild elevation of troponins. 5. Hypertension. 6. Hyperlipidemia. 7. 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 Vitals Vitals Vital Signs Date Time Temp Pulse Resp B/P Pulse Ox O2 Delivery O2 Flow Rate FiO2 06/07/16 11:24 91 Venturi Mask 9.0 06/07/16 11:15 97.8 84 20 86/46 97.8 Physical Exam General: Alert, Cooperative, No acute distress Heart: Normal S1, Normal S2, Other (Slightly tachycardic) Lungs: Other (poor airfllow) Abdomen: Soft, No tenderness Extremities: Normal pulses, No tenderness/swelling Skin: No rashes, No significant lesion Labs LABS Laboratory Tests Test 06/07/16 04:36 White Blood Count 12.6x10^3/uL (4.0-11.0) Red Blood Count 4.10x10^6/uL (3.50-5.40) Hemoglobin 10.8g/dL (12.0-15.5) Hematocrit 35.2% (36.0-47.0) Mean Corpuscular Volume 86fL (79-100) Mean Corpuscular Hemoglobin 26pg (25-35) Mean Corpuscular Hemoglobin Concent 31g/dL (31-37) Red Cell Distribution Width 17.6% (11.5-14.5) Platelet Count 376x10^3/uL (140-400) Neutrophils (%) (Auto) 80% (31-73) Lymphocytes (%) (Auto) 13% (24-48) Monocytes (%) (Auto) 7% (0-9) Eosinophils (%) (Auto) 0% (0-3) Basophils (%) (Auto) 0% (0-3) Neutrophils # (Auto) 10.1x10^3uL (1.8-7.7) Lymphocytes # (Auto) 1.6x10^3/uL (1.0-4.8) Monocytes # (Auto) 0.9x10^3/uL (0.0-1.1) Eosinophils # (Auto) 0.0x10^3/uL (0.0-0.7) Basophils # (Auto) 0.0x10^3/uL (0.0-0.2) Sodium Level 147mmol/L (136-145) Potassium Level 4.2mmol/L (3.5-5.1) Chloride Level 106mmol/L (98-107) Carbon Dioxide Level 38mmol/L (21-32) Anion Gap 3 (6-14) Blood Urea Nitrogen 27mg/dL (7-20) Creatinine 0.5mg/dL (0.6-1.0) Estimated GFR (Cockcroft-Gault) 125.9 Glucose Level 88mg/dL (70-99) Calcium Level 9.3mg/dL (8.5-10.1) Review of Systems Review of Systems awake, alert, oriented, mild SOB, afebrile, Assessment and Plan Assessmemt and Plan ASSESSMENT Problems 1. Acute hypercapnic hypoxic respiratory failure present on admission. 2. Chronic respiratory failure. 3. Chronic obstructive pulmonary disease. 4. Prior history of coronary artery disease with mild elevation of troponin. 5. Hypertension. 6. Hyperlipidemia. 7. Leukocytosis - resolved. Plan: Cath report showed 40% restenosis of previous stent and FFR Discuss cath report with cardio, RN, and family Continue telemetry monitoring Monitor daily labs- CBC, BMP, BUN and Cr Continue light PT/OT as long as oxygen saturations are maintained without increased work of breathing Smoking cessation education ordered Approaching her baseline so probable discharge in next 2-3 days Continue Solumedrol BID Continue duonebs Appreciate subspecialty input and recommendations Problems Medical Problems: (1) Respiratory failure Status: Acute Problems: Comment Review of Relevant I have reviewed the following items afshin (where applicable) has been applied. Labs Laboratory Tests Test 06/06/16 03:45 06/07/16 04:36 White Blood Count 11.5x10^3/uL (4.0-11.0) 12.6x10^3/uL (4.0-11.0) Red Blood Count 4.09x10^6/uL (3.50-5.40) 4.10x10^6/uL (3.50-5.40) Hemoglobin 10.9g/dL (12.0-15.5) 10.8g/dL (12.0-15.5) Hematocrit 34.4% (36.0-47.0) 35.2% (36.0-47.0) Mean Corpuscular Volume 84fL (79-100) 86fL (79-100) Mean Corpuscular Hemoglobin 27pg (25-35) 26pg (25-35) Mean Corpuscular Hemoglobin Concent 32g/dL (31-37) 31g/dL (31-37) Red Cell Distribution Width 17.3% (11.5-14.5) 17.6% (11.5-14.5) Platelet Count 359x10^3/uL (140-400) 376x10^3/uL (140-400) Neutrophils (%) (Auto) 85% (31-73) 80% (31-73) Lymphocytes (%) (Auto) 8% (24-48) 13% (24-48) Monocytes (%) (Auto) 8% (0-9) 7% (0-9) Eosinophils (%) (Auto) 0% (0-3) 0% (0-3) Basophils (%) (Auto) 0% (0-3) 0% (0-3) Neutrophils # (Auto) 9.8x10^3uL (1.8-7.7) 10.1x10^3uL (1.8-7.7) Lymphocytes # (Auto) 0.9x10^3/uL (1.0-4.8) 1.6x10^3/uL (1.0-4.8) Monocytes # (Auto) 0.9x10^3/uL (0.0-1.1) 0.9x10^3/uL (0.0-1.1) Eosinophils # (Auto) 0.0x10^3/uL (0.0-0.7) 0.0x10^3/uL (0.0-0.7) Basophils # (Auto) 0.0x10^3/uL (0.0-0.2) 0.0x10^3/uL (0.0-0.2) Sodium Level 146mmol/L (136-145) 147mmol/L (136-145) Potassium Level 4.5mmol/L (3.5-5.1) 4.2mmol/L (3.5-5.1) Chloride Level 106mmol/L (98-107) 106mmol/L (98-107) Carbon Dioxide Level 38mmol/L (21-32) 38mmol/L (21-32) Anion Gap 2 (6-14) 3 (6-14) Blood Urea Nitrogen 46mg/dL (7-20) 27mg/dL (7-20) Creatinine 0.7mg/dL (0.6-1.0) 0.5mg/dL (0.6-1.0) Estimated GFR (Cockcroft-Gault) 85.4 125.9 Glucose Level 168mg/dL (70-99) 88mg/dL (70-99) Calcium Level 9.2mg/dL (8.5-10.1) 9.3mg/dL (8.5-10.1) Laboratory Tests Test 06/07/16 04:36 White Blood Count 12.6x10^3/uL (4.0-11.0) Red Blood Count 4.10x10^6/uL (3.50-5.40) Hemoglobin 10.8g/dL (12.0-15.5) Hematocrit 35.2% (36.0-47.0) Mean Corpuscular Volume 86fL (79-100) Mean Corpuscular Hemoglobin 26pg (25-35) Mean Corpuscular Hemoglobin Concent 31g/dL (31-37) Red Cell Distribution Width 17.6% (11.5-14.5) Platelet Count 376x10^3/uL (140-400) Neutrophils (%) (Auto) 80% (31-73) Lymphocytes (%) (Auto) 13% (24-48) Monocytes (%) (Auto) 7% (0-9) Eosinophils (%) (Auto) 0% (0-3) Basophils (%) (Auto) 0% (0-3) Neutrophils # (Auto) 10.1x10^3uL (1.8-7.7) Lymphocytes # (Auto) 1.6x10^3/uL (1.0-4.8) Monocytes # (Auto) 0.9x10^3/uL (0.0-1.1) Eosinophils # (Auto) 0.0x10^3/uL (0.0-0.7) Basophils # (Auto) 0.0x10^3/uL (0.0-0.2) Sodium Level 147mmol/L (136-145) Potassium Level 4.2mmol/L (3.5-5.1) Chloride Level 106mmol/L (98-107) Carbon Dioxide Level 38mmol/L (21-32) Anion Gap 3 (6-14) Blood Urea Nitrogen 27mg/dL (7-20) Creatinine 0.5mg/dL (0.6-1.0) Estimated GFR (Cockcroft-Gault) 125.9 Glucose Level 88mg/dL (70-99) Calcium Level 9.3mg/dL (8.5-10.1) Microbiology 05/30/16 Blood Culture - Final, Complete NO GROWTH AFTER 5 DAYS Medications Current Medications Methylprednisolone Sodium Succinate (Solu-Medrol 125mg Vial) 125 mg 1X ONCE IV Last administered on 05/30/16 08:31; Start 05/30/16 at 07:45; Stop 05/30/16 at 07:52; Status DC Isosorbide Mononitrate (Imdur) 60 mg 1X ONCE PO Last administered on 09:02; Start 05/30/16 at 08:30; Stop 05/30/16 at 08:31; Status DC Albuterol/ Ipratropium 3 ml 3 ml 1X ONCE NEB Last administered on 05/30/16 08 :44; Start 05/30/16 at 08:30; Stop 05/30/16 at 08:31; Status DC Ceftriaxone Sodium 1 gm/ Sodium Chloride 100 ml @ 200 mls/hr Q24H IV Last administered on 06/04/16 09:01; Start 05/31/16 at 09:00; Stop 06/05/16 at 14:01 ; Status DC Azithromycin 500 mg/Sodium Chloride 250 ml @ 250 mls/hr Q24H IV Last administered on 06/01/16 09:14; Start 05/31/16 at 09:00; Stop 06/02/16 at 08:59 ; Status DC Azithromycin 250 ml @ 250 mls/hr 1X ONCE IV ; Start 05/30/16 at 09:15; Stop at 10:14; Status DC Ceftriaxone Sodium (Rocephin 1gm Ivpb For Omni) 50 ml @ 100 mls/hr 1X ONCE IV Last administered on 05/30/16 10:18; Start 05/30/16 at 09:15; Stop 05/30/16 at 09:44; Status DC Ondansetron HCl 4 mg 4 mg PRN Q8HRS PRN IV NAUSEA/VOMITING; Start 05/30/16 at 10:00; Stop 05/31/16 at 09:59; Status DC Sodium Chloride (Iv Sodium Chloride 0.9% 1000ml Bag) 1,000 ml @ 100 mls/hr Q10H IV ; Start 05/30/16 at 09:48; Stop 05/31/16 at 09:47; Status DC Acetaminophen (Tylenol) 650 mg PRN Q4HRS PRN PO FEVER; Start 05/30/16 at 10:00 ; Stop 05/31/16 at 09:59; Status DC Albuterol/ Ipratropium (Duoneb) 3 ml RTQID NEB Last administered on 05/30/16 10:50; Start 05/30/16 at 12:00; Stop 05/30/16 at 16:32; Status DC Methylprednisolone Sodium Succinate (Solu-Medrol 40mg Vial) 40 mg Q8HRS IV Last administered on 05/31/16 05:50; Start 05/30/16 at 14:00; Stop 05/31/16 at 10:27; Status DC Enoxaparin Sodium (Lovenox 40mg Syringe) 40 mg Q24H SQ Last administered on 06/07 10:29; Start 05/30/16 at 11:00 Clopidogrel Bisulfate (Plavix) 75 mg DAILY PO Last administered on 06/07/16 09: 55; Start 05/30/16 at 14:30 Aspirin (Ecotrin) 81 mg [id number] PO Last administered on 06/07/16 09:57; Start 05/30/16 at 14:15 Atenolol (Tenormin) 25 mg DAILY PO Last administered on 06/07/16 09:56; Start 05/30/16 at 15:00 Aspirin (Ecotrin) 81 mg DAILY PO ; Start 05/31/16 at 09:00; Status UNV Famotidine (Pepcid) 20 mg BID PO Last administered on 06/07/16 10:01; Start at 21:00 Folic Acid (Folic Acid) 1 mg DAILY PO Last administered on 06/07/16 10:01; Start 05/31/16 at 09:00 Isosorbide Mononitrate (Imdur) 60 mg DAILY PO Last administered on 06/07/16 09: 58; Start 05/31/16 at 09:00 Meloxicam (Mobic) 7.5 mg DAILY PO Last administered on 06/07/16 09:56; Start at 09:00 Mirabegron (Myrbetriq) 25 mg DAILY PO Last administered on 06/07/16 10:28; Start 05/31/16 at 09:00 Budesonide (Pulmicort) 0.5 mg RTBID NEB Last administered on 06/05/16 07:13; Start 05/30/16 at 20:00; Stop 06/05/16 at 14:01; Status DC Lactobacillus Acidophilus (Bacid, Christa-Bid) 1 tab DAILY PO Last administered on 06/07/16 10:02; Start 05/31/16 at 09:00 Fish Oil (Fish Oil) 1,000 mg DAILY PO Last administered on 06/07/16 09:59; Start 05/31/16 at 09:00 Atorvastatin Calcium (Lipitor) 80 mg QHS PO Last administered on 06/06/16 21:49 ; Start 05/30/16 at 21:00 Albuterol/ Ipratropium (Duoneb) 3 ml RTQID NEB Last administered on 05/31/16 07:19; Start 05/30/16 at 20:00; Stop 05/31/16 at 10:27; Status DC Oxycodone HCl (Roxicodone) 10 mg PRN Q6HRS PRN PO PAIN Last administered on 04:36; Start 05/30/16 at 18:00; Stop 05/31/16 at 10:28; Status DC Ketorolac Tromethamine (Toradol) 30 mg PRN Q6HRS PRN IV PAIN; Start 05/30/16 at 19:15; Stop 05/31/16 at 12:38; Status DC Albuterol/ Ipratropium (Duoneb) 3 ml Q4HRS NEB Last administered on 06/07/16 11 :24; Start 05/31/16 at 12:00 Methylprednisolone Sodium Succinate 60 mg 60 mg Q8HRS IV Last administered on 06:55; Start 05/31/16 at 14:00; Stop 06/04/16 at 14:10; Status DC Amino Acids/ Electrolytes (Clinimix E 2.75%-5% Solution) 1,000 ml @ 50 mls/hr Q20H IV Last administered on 05/31/16 13:27; Start 05/31/16 at 12:00; Stop at 16:43; Status DC Docusate Sodium (Colace) 100 mg DAILY PO Last administered on 06/03/16 08:12; Start 05/31/16 at 11:30 Pramipexole Dihydrochloride (miraPEX) 0.5 mg ONCE ONCE PO Last administered on 05/31/16 20:40; Start 05/31/16 at 19:57; Stop 05/31/16 at 19:58; Status DC Pramipexole Dihydrochloride (miraPEX) 0.25 mg QHS PO Last administered on 21:49; Start 06/01/16 at 21:00 Acetaminophen (Tylenol) 650 mg PRN Q6HRS PRN PO MILD PAIN / TEMP Last administered on 06/01/16 09:12; Start 06/01/16 at 02:45 Alprazolam (Xanax) 0.25 mg 1X ONCE PO Last administered on 06/01/16 09:37; Start 06/01/16 at 10:00; Stop 06/01/16 at 10:01; Status DC Butorphanol Tartrate (Stadol) 1 mg PRN Q6HRS PRN IV PAIN Last administered on 07:39; Start 06/01/16 at 10:45; Stop 06/04/16 at 08:54; Status DC Alprazolam 0.25 mg 0.25 mg PRN BID PRN PO ANXIETY / AGITATION Last administered on 06/06/16 22:33; Start 06/01/16 at 13:45 Amino Acids/ Electrolytes/ Dextrose (Clinimix E 4.25%-5% Solution) 1,000 ml @ 50 mls/hr Q20H IV Last administered on 06/02/16 14:08; Start 06/01/16 at 17:00 ; Stop 06/03/16 at 15:42; Status DC Fentanyl (Duragesic 25mcg/ Hr Patch) 1 patch 1X ONCE TD Last administered on 09:56; Start 06/02/16 at 09:30; Stop 06/02/16 at 09:31; Status DC Fentanyl Citrate (Fentanyl 2ml Vial) 25 mcg 1X ONCE IV Last administered on 09:46; Start 06/02/16 at 09:30; Stop 06/02/16 at 09:31; Status DC Ketorolac Tromethamine (Toradol) 10 mg PRN Q6HRS PRN IV PAIN Last administered on 06/07/16 10:13; Start 06/03/16 at 10:00; Stop 06/08/16 at 09:59 Oxycodone HCl (Roxicodone) 10 mg PRN TID PRN PO PAIN; Start 06/03/16 at 10:30; Stop 06/04/16 at 14:13; Status DC Lisinopril (Prinivil) 2.5 mg DAILY PO Last administered on 06/07/16 09:57; Start 06/03/16 at 12:30 Butorphanol Tartrate (Stadol) 0.5 mg PRN Q6HRS PRN IV PAIN; Start 06/04/16 at 09:00 Methylprednisolone Sodium Succinate (Solu-Medrol 40mg Vial) 60 mg BID IV Last administered on 06/05/16 12:41; Start 06/04/16 at 21:00; Stop 06/05/16 at 14:01; Status DC Oxycodone HCl (Roxicodone) 5 mg PRN TID PRN PO PAIN; Start 06/04/16 at 14:15 Regadenoson (Lexiscan) 0.4 mg 1X ONCE IV Last administered on 06/05/16 12:09; Start 06/05/16 at 11:30; Stop 06/05/16 at 11:31; Status DC Guaifenesin (Mucinex) 1,200 mg BID PO Last administered on 06/07/16 09:55; Start 06/05/16 at 14:00 Prednisone (Prednisone) 30 mg DAILY PO Last administered on 06/07/16 10:01; Start 06/05/16 at 15:00 Iohexol (Omnipaque 300 Mg/ml) 75 ml 1X ONCE IV Last administered on 06/06/16 08:53; Start 06/06/16 at 08:45; Stop 06/06/16 at 08:46; Status DC Info (Do NOT chart on this entry -- for MONITORING) 1 each PRN DAILY PRN MC SEE COMMENTS; Start 06/06/16 at 08:15; Stop 06/08/16 at 08:14 Loperamide HCl (Imodium) 2 mg PRN Q4HRS PRN PO DIARRHEA Last administered on 11:03; Start 06/06/16 at 10:45 Nystatin 5 ml BID SWSW Last administered on 06/07/16 09:56; Start 06/06/16 at 16 :30 Iohexol 100 ml 100 ml STK-MED ONCE .ROUTE ; Start 06/07/16 at 07:06; Stop at 07:07; Status DC Heparin Sodium/ Sodium Chloride 1,000 ml @ As Directed STK-MED ONCE .ROUTE ; Start 06/07/16 at 07:06; Stop 06/07/16 at 07:07; Status DC Lidocaine HCl 20 ml STK-MED ONCE .ROUTE ; Start 06/07/16 at 07:06; Stop 06/07/16 at 07:07; Status DC Nitroglycerin (Nitroglycerin) 200 mcg STK-MED ONCE .ROUTE ; Start 06/07/16 at 08: 10; Stop 06/07/16 at 08:11; Status DC Verapamil HCl (Verapamil) 5 mg STK-MED ONCE .ROUTE ; Start 06/07/16 at 08:10; Stop 06/07/16 at 08:11; Status DC Heparin Sodium (Porcine) 10,000 unit STK-MED ONCE .ROUTE ; Start 06/07/16 at 08: 10; Stop 06/07/16 at 08:11; Status DC Fentanyl Citrate (Fentanyl 2ml Vial) 100 mcg STK-MED ONCE .ROUTE ; Start at 08:10; Stop 06/07/16 at 08:11; Status DC Midazolam HCl (Versed) 2 mg STK-MED ONCE .ROUTE ; Start 06/07/16 at 08:10; Stop 06/07/16 at 08:11; Status DC Adenosine (Adenoscan) 90 mg STK-MED ONCE IV ; Start 06/07/16 at 08:53; Stop at 08:54; Status DC Iohexol (Omnipaque 300 Mg/ml) 100 ml STK-MED ONCE .ROUTE ; Start 06/07/16 at 08: 59; Stop 06/07/16 at 09:00; Status DC Nitroglycerin (Nitroglycerin) 200 mcg 1X ONCE IART Last administered on 09:18; Start 06/07/16 at 09:15; Stop 06/07/16 at 09:16; Status DC Nitroglycerin/ Dextrose (Nitroglycerin) 4 mg 1X ONCE IV ; Start 06/07/16 at 09: 15; Stop 06/07/16 at 09:17; Status DC Verapamil HCl (Verapamil) 2.5 mg 1X ONCE IART Last administered on 06/07/16 09 :20; Start 06/07/16 at 09:15; Stop 06/07/16 at 09:16; Status DC Heparin Sodium (Porcine) 2,500 unit 1X ONCE IART Last administered on 09:19; Start 06/07/16 at 09:15; Stop 06/07/16 at 09:16; Status DC Midazolam HCl (Versed) 1.5 mg 1X ONCE IV Last administered on 06/07/16 09:21; Start 06/07/16 at 09:15; Stop 06/07/16 at 09:16; Status DC Fentanyl Citrate (Fentanyl 2ml Vial) 50 mcg 1X ONCE IV Last administered on 09:21; Start 06/07/16 at 09:15; Stop 06/07/16 at 09:16; Status DC Iohexol (Omnipaque 300 Mg/ml) 160 ml 1X ONCE IART Last administered on 09:17; Start 06/07/16 at 09:15; Stop 06/07/16 at 09:16; Status DC Lidocaine HCl 1 ml 1 ml 1X ONCE IJ Last administered on 06/07/16 09:20; Start 06/07/16 at 09:15; Stop 06/07/16 at 09:16; Status DC Adenosine/Sodium Chloride (Adenoscan/Iv Sodium Chloride 0.9% 50ml) 120 ml @ 200 mls/hr 1X ONCE IV Last administered on 06/07/16 09:18; Start 06/07/16 at 09 :15; Stop 06/07/16 at 09:50; Status DC Heparin Sodium/ Sodium Chloride 1000 unit 1,000 unit 1X ONCE IART Last administered on 06/07/16 09:24; Start 06/07/16 at 09:30; Stop 06/07/16 at 09:31; Status DC Sodium Chloride (Iv Sodium Chloride 0.45%) 1,000 ml @ 60 mls/hr [id number] IV Last administered on 06/07/16 10:29; Start 06/07/16 at 10:00 Active Scripts Active Solu-Medrol 40 Mg Vial (Methylprednisolone Sod Succ/Pf) 40 Mg/1 Ml Vial 60 Mg IV Q8HRS Lisinopril 2.5 Mg Tablet 2.5 Mg PO DAILY Enoxaparin Sodium 40 Mg/0.4 Ml Disp.syrin 40 Mg SQ Q24H Reported Calcium (Calcium Carbonate) 500 Mg Tab.chew 500 Mg PO Multivitamins (Multivitamin) 1 Each Capsule 1 Each PO Folic Acid 1 Mg Tablet 1 Tab PO DAILY Myrbetriq (Mirabegron) 25 Mg Tab.er.24h 25 Mg PO DAILY Isosorbide Mononitrate 20 Mg Tablet 60 Mg PO DAILY Probiotic (Lactobacillus Combo No.11) 1 Each Cap.sprink 1 Each PO DAILY Fish Oil ([place]-3 Fatty Acids) 300 Mg Capsule 1,200 Mg PO BID Crestor (Rosuvastatin Calcium) 40 Mg Tablet 1 Tab PO DAILY Aspir 81 (Aspirin) 81 Mg Tablet.dr 1 Tab PO DAILY Advair 250-50 Diskus (Fluticasone/Salmeterol) 1 Each Disk.w.dev 1 Puff IH BID Plavix (Clopidogrel Bisulfate) 75 Mg Tablet 75 Mg PO DAILY Atenolol 25 Mg Tablet 25 Mg PO DAILY Mirapex (Pramipexole Di-Hcl) 0.25 Mg Tablet 0.25 Mg PO Oxycodone Hcl 10 Mg Tablet 10 Mg PO PRN TID PRN Spiriva (Tiotropium [place]) 18 Mcg Cap.w.dev 2 Inh IH DAILY Albuterol Sulfate Oral Syrup (Albuterol Sulfate) 2 Mg/5 Ml Syrup 4 Mg PO QID Meloxicam 7.5 Mg Tablet 7.5 Mg PO DAILY Prilosec Otc (Omeprazole Magnesium) 20 Mg Tablet.dr 20 Mg PO DAILY Famotidine 20 Mg Tablet 20 Mg PO BID Vitals/I & O Vital Sign - Last 24 Hours 06/06/16 06/06/16 06/06/16 06/06/16 13:24 15:37 15:40 18:29 Temp 98.1 98.1 Pulse 83 87 Resp 26 B/P 137/60 152/72 Pulse Ox 92 92 93 O2 Delivery Venturi Mask Venturi Mask BiPAP/CPAP O2 Flow Rate 6.0 35.0 06/06/16 06/06/16 06/06/16 06/06/16 18:57 21:00 21:08 23:09 Temp 97.4 97.9 97.4 97.9 Pulse 82 84 Resp 16 B/P 109/62 108/60 Pulse Ox 95 95 92 O2 Delivery BiPAP/CPAP BiPAP/CPAP Nasal Cannula O2 Flow Rate 35.0 1.0 06/06/16 06/07/16 06/07/16 06/07/16 23:52 01:01 02:36 03:33 Temp 97.7 97.7 Pulse 88 Resp 18 B/P 119/59 Pulse Ox 96 96 93 94 O2 Delivery BiPAP/CPAP BiPAP/CPAP BiPAP/CPAP BiPAP/CPAP 06/07/16 06/07/16 06/07/16 06/07/16 07:22 07:27 08:02 09:13 Temp 97.9 97.9 Pulse 105 105 Resp 23 24 B/P 154/63 Pulse Ox 91 91 97 O2 Delivery Venturi Mask Venturi Mask Venturi Mask NonRebreather Mask O2 Flow Rate 8.0 9.0 9.0 10.0 06/07/16 06/07/16 06/07/16 06/07/16 09:20 09:21 09:56 09:57 Pulse 105 103 103 Resp 24 B/P 133/67 133/67 Pulse Ox 95 O2 Delivery NonRebreather Mask O2 Flow Rate 10.0 3/306/07/16 06/07/16 09:58 11:15 11:24 Temp 97.8 97.8 Pulse 103 84 Resp 20 B/P 133/67 86/46 Pulse Ox 92 91 O2 Delivery Venturi Mask Venturi Mask O2 Flow Rate 9.0 9.0 Intake and Output 06/06/16 06/06/16 06/07/16 15:00 23:00 07:00 Intake Total 360 ml 300 ml Output Total 300 ml 600 ml 150 ml Balance -300 ml -240 ml 150 ml GRACE DAVISON III DO Jun 07, 2016 11:58
[2016-06-07] MEDS: ALPRAZOLAM 0.25 MG TABLET PO PRN (16:29)
--- NOTE | 2016-06-07 16:40 | PDOC ---
PULMONARY PROGRESS NOTES Subjective pt still soa with exertion Vitals Vital Signs Date Time Temp Pulse Resp B/P Pulse Ox O2 Delivery O2 Flow Rate FiO2 06/07/16 16:03 92 Venturi Mask 9.0 06/07/16 11:15 97.8 84 20 86/46 97.8 ROS: No Nausea, No Chest Pain, No Abdominal Pain, No Increase Cough General: Alert Lungs: Other (poor airfllow) Cardiovascular: S1 Abdomen: Soft Neuro Exam: Alert Extremities: No Edema Skin: Warm Labs Laboratory Tests Test 06/06/16 03:45 06/07/16 04:36 White Blood Count 11.5x10^3/uL (4.0-11.0) 12.6x10^3/uL (4.0-11.0) Red Blood Count 4.09x10^6/uL (3.50-5.40) 4.10x10^6/uL (3.50-5.40) Hemoglobin 10.9g/dL (12.0-15.5) 10.8g/dL (12.0-15.5) Hematocrit 34.4% (36.0-47.0) 35.2% (36.0-47.0) Mean Corpuscular Volume 84fL (79-100) 86fL (79-100) Mean Corpuscular Hemoglobin 27pg (25-35) 26pg (25-35) Mean Corpuscular Hemoglobin Concent 32g/dL (31-37) 31g/dL (31-37) Red Cell Distribution Width 17.3% (11.5-14.5) 17.6% (11.5-14.5) Platelet Count 359x10^3/uL (140-400) 376x10^3/uL (140-400) Neutrophils (%) (Auto) 85% (31-73) 80% (31-73) Lymphocytes (%) (Auto) 8% (24-48) 13% (24-48) Monocytes (%) (Auto) 8% (0-9) 7% (0-9) Eosinophils (%) (Auto) 0% (0-3) 0% (0-3) Basophils (%) (Auto) 0% (0-3) 0% (0-3) Neutrophils # (Auto) 9.8x10^3uL (1.8-7.7) 10.1x10^3uL (1.8-7.7) Lymphocytes # (Auto) 0.9x10^3/uL (1.0-4.8) 1.6x10^3/uL (1.0-4.8) Monocytes # (Auto) 0.9x10^3/uL (0.0-1.1) 0.9x10^3/uL (0.0-1.1) Eosinophils # (Auto) 0.0x10^3/uL (0.0-0.7) 0.0x10^3/uL (0.0-0.7) Basophils # (Auto) 0.0x10^3/uL (0.0-0.2) 0.0x10^3/uL (0.0-0.2) Sodium Level 146mmol/L (136-145) 147mmol/L (136-145) Potassium Level 4.5mmol/L (3.5-5.1) 4.2mmol/L (3.5-5.1) Chloride Level 106mmol/L (98-107) 106mmol/L (98-107) Carbon Dioxide Level 38mmol/L (21-32) 38mmol/L (21-32) Anion Gap 2 (6-14) 3 (6-14) Blood Urea Nitrogen 46mg/dL (7-20) 27mg/dL (7-20) Creatinine 0.7mg/dL (0.6-1.0) 0.5mg/dL (0.6-1.0) Estimated GFR (Cockcroft-Gault) 85.4 125.9 Glucose Level 168mg/dL (70-99) 88mg/dL (70-99) Calcium Level 9.2mg/dL (8.5-10.1) 9.3mg/dL (8.5-10.1) Laboratory Tests Test 06/07/16 04:36 White Blood Count 12.6x10^3/uL (4.0-11.0) Red Blood Count 4.10x10^6/uL (3.50-5.40) Hemoglobin 10.8g/dL (12.0-15.5) Hematocrit 35.2% (36.0-47.0) Mean Corpuscular Volume 86fL (79-100) Mean Corpuscular Hemoglobin 26pg (25-35) Mean Corpuscular Hemoglobin Concent 31g/dL (31-37) Red Cell Distribution Width 17.6% (11.5-14.5) Platelet Count 376x10^3/uL (140-400) Neutrophils (%) (Auto) 80% (31-73) Lymphocytes (%) (Auto) 13% (24-48) Monocytes (%) (Auto) 7% (0-9) Eosinophils (%) (Auto) 0% (0-3) Basophils (%) (Auto) 0% (0-3) Neutrophils # (Auto) 10.1x10^3uL (1.8-7.7) Lymphocytes # (Auto) 1.6x10^3/uL (1.0-4.8) Monocytes # (Auto) 0.9x10^3/uL (0.0-1.1) Eosinophils # (Auto) 0.0x10^3/uL (0.0-0.7) Basophils # (Auto) 0.0x10^3/uL (0.0-0.2) Sodium Level 147mmol/L (136-145) Potassium Level 4.2mmol/L (3.5-5.1) Chloride Level 106mmol/L (98-107) Carbon Dioxide Level 38mmol/L (21-32) Anion Gap 3 (6-14) Blood Urea Nitrogen 27mg/dL (7-20) Creatinine 0.5mg/dL (0.6-1.0) Estimated GFR (Cockcroft-Gault) 125.9 Glucose Level 88mg/dL (70-99) Calcium Level 9.3mg/dL (8.5-10.1) Medications Active Scripts Medications Dose Route/Sig Days Date Category Calcium (Calcium Carbonate) 500 Mg Tab.chew 500 Mg PO 05/30/16 Reported Multivitamins (Multivitamin) 1 Each Capsule 1 Each PO 05/30/16 Reported Folic Acid 1 Mg Tablet 1 Tab PO DAILY 05/30/16 Reported Myrbetriq (Mirabegron) 25 Mg Tab.er.24h 25 Mg PO DAILY 05/30/16 Reported Isosorbide Mononitrate 20 Mg Tablet 60 Mg PO DAILY 05/30/16 Reported Probiotic (Lactobacillus Combo No.11) 1 Each Cap.sprink 1 Each PO DAILY 05/30/16 Reported Fish Oil ([place]-3 Fatty Acids) 300 Mg Capsule 1,200 Mg PO BID 05/30/16 Reported Crestor (Rosuvastatin Calcium) 40 Mg Tablet 1 Tab PO DAILY 05/30/16 Reported Aspir 81 (Aspirin) 81 Mg Tablet.dr 1 Tab PO DAILY 05/30/16 Reported Advair 250-50 Diskus (Fluticasone/Salmeterol) 1 Each Disk.w.dev 1 Puff IH BID 05/30/16 Reported Plavix (Clopidogrel Bisulfate) 75 Mg Tablet 75 Mg PO DAILY 02/28/16 Reported Atenolol 25 Mg Tablet 25 Mg PO DAILY 02/28/16 Reported Mirapex (Pramipexole Di-Hcl) 0.25 Mg Tablet 0.25 Mg PO 02/28/16 Reported Oxycodone Hcl 10 Mg Tablet 10 Mg PO PRN 02/28/16 Reported Spiriva (Tiotropium [place]) 18 Mcg Cap.w.dev 2 Inh IH DAILY 02/28/16 Reported Albuterol Sulfate Oral Syrup (Albuterol Sulfate) 2 Mg/5 Ml Syrup 4 Mg PO QID 02/28/16 Reported Meloxicam 7.5 Mg Tablet 7.5 Mg PO DAILY 02/28/16 Reported Prilosec Otc (Omeprazole Magnesium) 20 Mg Tablet.dr 20 Mg PO DAILY 02/28/16 Reported Famotidine 20 Mg Tablet 20 Mg PO BID 02/28/16 Reported Impression . 1. Uajki-js-mxeykiu hypercapnic and hypoxic respiratory failure secondary to acute exacerbation of chronic obstructive pulmonary disease and bibasilar pneumonia and Narcotics 2. Abnormal chest x-ray with bibasilar interstitial infiltrates. 3. Underlying severe chronic obstructive pulmonary disease, which is oxygen dependent and uses Trilogy ventilator at nighttime. 4. Ongoing tobacco consumption. 5. Elevated troponin level Plan . ok to transfer to [facility] \Ct reviewed no PE, very mild infiltrate LLL cath no stenosis requiring stents, medical management PO steroids d/c antibx BIPAP qhs adjust pressures GI and DVT PROPH avoid benzos PRETTY VILA MD Jun 07, 2016 16:40
== END 2016-06-07 16:37 | DRG 177 ==
LOC: ER 07:46 → 1 WEST ICU 09:02 → EEVIPCON 09:02 → 2 SOUTH 06-04 19:00 → 2 NORTH 06-06 14:08
PROVIDERS: ADMIT Internal Medicine; ATTEND Internal Medicine
PROC: 4A023N7 Measurement of Cardiac Sampling and Pressure, Left Heart, Percutaneous Approach (ICD-10-PCS; principal; 2016-06-07)
PROC: B2111ZZ Fluoroscopy of Multiple Coronary Arteries using Low Osmolar Contrast (ICD-10-PCS; 2016-06-07)
PROC: B2151ZZ Fluoroscopy of Left Heart using Low Osmolar Contrast (ICD-10-PCS; 2016-06-07)
PROC: 5A09557 Assistance with Respiratory Ventilation, Greater than 96 Consecutive Hours, Continuous Positive Airway Pressure (ICD-10-PCS; 2016-06-07)
PROC: 4A033BC Measurement of Arterial Pressure, Coronary, Percutaneous Approach (ICD-10-PCS; 2016-06-07)
DX: J69.0 Pneumonitis due to inhalation of food and vomit (principal); J96.00 Acute respiratory failure, unspecified whether with hypoxia or hypercapnia; J96.21 Acute and chronic respiratory failure with hypoxia; J96.22 Acute and chronic respiratory failure with hypercapnia; I24.8 Other forms of acute ischemic heart disease; J44.0 Chronic obstructive pulmonary disease with (acute) lower respiratory infection; J44.1 Chronic obstructive pulmonary disease with (acute) exacerbation; E78.5 Hyperlipidemia, unspecified; F17.210 Nicotine dependence, cigarettes, uncomplicated; I10 Essential (primary) hypertension; M19.90 Unspecified osteoarthritis, unspecified site; I25.10 Atherosclerotic heart disease of native coronary artery without angina pectoris; K22.70 Barrett's esophagus without dysplasia; Z79.02 Long term (current) use of antithrombotics/antiplatelets; Z79.82 Long term (current) use of aspirin; Z82.49 Family history of ischemic heart disease and other diseases of the circulatory system; Z86.73 Personal history of transient ischemic attack (TIA), and cerebral infarction without residual deficits; Z95.5 Presence of coronary angioplasty implant and graft; Z99.81 Dependence on supplemental oxygen; Z88.8 Allergy status to other drugs, medicaments and biological substances
CPT/HCPCS: 36415; 36600; 71010; 71250; 71275; 78452; 80048; 80053; 80061; 82805; 83605; 83880; 84484; 85007; 85027; 87040; 87641; 87804; 93005; 93017; 93306; 93458; 94640; 94660; 94760; 96365; 96374; 96375; 96376; A9500; C1769; C1887; C1892; J0153; J0456; J0690; J0696; J1650; J1885; J2250; J2785; J2920; J2930; J3010; J3490; J7050; J7512; J7620; Q9967; 99285-25; J7030

== ENCOUNTER → 2016-10-16 | Outpatient (CLI) | payer BC, MEDICARE ==
[~2016-10-16] MED LIST changes: +ASPI-482 PO; +CALC500T54 PO; -CLOP75TA27 PO; +CLOP75TA57 PO; +CRESTOR40 MG PO; +ENOX40DI3 SQ; +FLUT1DIS3 IH; +FOLI1TAB16 PO; +ISOS20TA2 PO; +LACT1CAP8 PO; +LISI2.5T PO; -MELO-156 PO; +MELO7.5T29 PO; +METH40VI IV; +MIRA25TA PO; +MULT1CAP15 PO; +OMEG300C PO
[2016-10-16 14:10] LABS: HCO3 ABG 28 mmol/L (21-28); PCO2 ABG 44 mmHg (35-46); PH ABG 7.42 (7.35-7.45); PO2 ABG 65 mmHg (65-108); SAT O2 ABG 93 % (92-99)
[2016-10-16 14:13] LABS: FIO2 ABG 24
== END | disposition home or self-care (01) ==
LOC: RT 13:19
PROVIDERS: ATTEND Internal Medicine Pulmonary Disease
DX: J96.21 Acute and chronic respiratory failure with hypoxia (principal)
CPT/HCPCS: 36600; 82805; 94620

== ENCOUNTER → 2016-12-04 | Day surgery (SDC) | payer BC ==
[~2016-12-04] MED LIST changes: +DICY10CA3 PO; +FERR-26 PO; +HYDROmorphone 2 MG/ML VIAL IV PRN; +IV RINGERS,LACTATED 1000ML 1,000 ML IV SCH; +LIDOCAINE 1% 1 ML SYRINGE. ID PRN; +LIDOCAINE 2% PF Vial for OR 5 ML VIAL. ONE; +MORPHINE SULFATE 2 MG/ML DISP.SYRIN. IV PRN; +ONDANSETRON PF 4 MG/2 ML VIAL. IV PRN; +PROCHLORPERAZINE 10 MG/2 ML VIAL. IV PRN; +PROPOFOL 20 ML IV ONE; +fentaNYL PF VIAL 100 MCG/2 ML VIAL IV PRN
[2016-12-04 09:15] VITALS: BP 151/71
--- NOTE | 2016-12-05 11:05 | PATHOLOGY ---
PATHOLOGY REPORT * * * * * * * * FINAL DIAGNOSIS: A. Esophageal biopsies, distal esophagus: - Segments of hyperplastic squamous esophageal mucosa consistent with reflux esophagitis. B. Colonic mucosa, random colon biopsies: - No significant pathologic abnormalities. (JPM:brooke; 12/05/2016) COMMENT: Sections of the distal esophageal biopsy reveal segments of focally tangentially oriented hyperplastic squamous esophageal mucosa showing focal attached muscularis mucosa and chronic inflammation. The findings are consistent with reflux esophagitis. There is no evidence of Bradley's change, dysplasia, or malignancy. Sections of the random colon biopsy reveal multiple segments of colonic mucosa. There is no evidence of a chronic destructive colitis, lymphocytic colitis, or collagenous colitis. (JPM:brooke; 12/05/2016) REPORT ELECTRONICALLY SIGNED BY: Yevgeniy Palma M.D. DATE/TIME: 12/05/2016 11:05 * * * * * * * * GROSS PATHOLOGY: A. Received in formalin labeled "Abena Curiel, distal esophagus, r/o Bradley's," are multiple segments of ballard soft tissue measuring from 0.1 up to 0.3 cm in maximum dimension. The specimen is submitted entirely in cassette A1. B. Received in formalin labeled "random colon biopsy for diarrhea," are multiple segments of ballard soft tissue measuring from 0.1 up to 0.3 cm in maximum dimension. The specimen is submitted entirely in cassette B1. (JPM; 12/04/16) INITIAL CPT CODE(S): A; 42147 B; 51819 Professional services performed [place] [facility] [place] [address] Technical services performed by [facility] at [address] [place] [address] [address] [address]. SPECIMEN(S) RECEIVED: A.Distal esophagus B.Random colon biopsy for diarrhea CLINICAL HISTORY: Nausea PATIENT: ABENA CURIEL /AGE: 10 1955 (Age: 61) PATIENT #: [id number] ALT CASE #: SPECIMEN COLLECTION DATE: 12/04/2016 SPECIMEN RECEIVED DATE: 12/04/2016 [facility] - [address] [place] [address] - PHONE: [phone] * * * END OF REPORT * * *
== END | disposition home or self-care (01) ==
LOC: ENDOS 06:58
PROVIDERS: ATTEND Internal Medicine Gastroenterology
DX: K64.0 First degree hemorrhoids (principal); K22.70 Barrett's esophagus without dysplasia; K29.50 Unspecified chronic gastritis without bleeding; K57.30 Diverticulosis of large intestine without perforation or abscess without bleeding; E78.00 Pure hypercholesterolemia, unspecified; I11.0 Hypertensive heart disease with heart failure; I50.20 Unspecified systolic (congestive) heart failure; J44.9 Chronic obstructive pulmonary disease, unspecified; F41.9 Anxiety disorder, unspecified; F32.9 Major depressive disorder, single episode, unspecified; Z98.42 Cataract extraction status, left eye; Z98.41 Cataract extraction status, right eye; Z98.51 Tubal ligation status; Z90.49 Acquired absence of other specified parts of digestive tract; Z86.39 Personal history of other endocrine, nutritional and metabolic disease; Z72.0 Tobacco use
CPT/HCPCS: 43239; 45380; J2704; J2001

== ENCOUNTER → 2017-07-03 | Outpatient (CLI) | payer BC, MEDICARE ==
[2017-07-03 14:09] LABS: BASE EXCESS COOX 7 mmol/L (-3-3); CARBON MONOXIDE 1.2 % (0.0-1.9); HCO3 COOX 36 mmol/L (21-28); OXYHEMOGLOBIN 86.2 %; PH COOX 7.31 (7.35-7.45); PO2 COOX 54 mmHg (65-108); SAT O2 COOX 87 % (92-99); TOTAL HEMOGLOBIN 13.5 g/dL
[2017-07-03 14:12] LABS: FIO2 COOX 40; PCO2 COOX 75 mmHg (35-46)
== END | disposition home or self-care (01) ==
LOC: RT 13:23
DX: J44.9 Chronic obstructive pulmonary disease, unspecified (principal)
CPT/HCPCS: 36600; 82805

== ENCOUNTER 2018-02-03 16:28 | Inpatient (IN) | payer BC, MEDICARE ==
[~2018-02-03] VITALS: Ht 167.6 cm; Wt 83.9 kg
[2018-02-03] VITALS (7 sets, daily range): BP systolic 83–106; BP diastolic 56–71
[~2018-02-03 16:28] MED LIST changes: +ALBU2.5V5 NEB; -ALBU2SYR PO; +ALBU2SYR2 PO; -FERR-26 PO; +FERR325T14 PO; +GABA-587 PO; -HYDROmorphone 2 MG/ML VIAL IV PRN; +IPRA3AMP29 NEB; -IV RINGERS,LACTATED 1000ML 1,000 ML IV SCH; -LIDOCAINE 1% 1 ML SYRINGE. ID PRN; -LIDOCAINE 2% PF Vial for OR 5 ML VIAL. ONE; -MORPHINE SULFATE 2 MG/ML DISP.SYRIN. IV PRN; -ONDANSETRON PF 4 MG/2 ML VIAL. IV PRN; +PANTOPRAZOLE IV PUSH 40 MG VIAL. IVP ONE; +PRED20TA PO; -PROCHLORPERAZINE 10 MG/2 ML VIAL. IV PRN; -PROPOFOL 20 ML IV ONE; +SIME80TA14 PO; -fentaNYL PF VIAL 100 MCG/2 ML VIAL IV PRN
[2018-02-03 17:21] LABS: BASO % 0 % (0-3); EOS % 0 % (0-3); HEMATOCRIT 39.5 % (36.0-47.0); LYMPH # 1.1 x10^3/uL (1.0-4.8); LYMPH % 8 % (24-48); MEAN CORPUSCULAR HEMOGLOBIN 33 pg (25-35); MEAN CORPUSCULAR HGB CONC 33 g/dL (31-37); MEAN CORPUSCULAR VOLUME 99 fL (79-100); MONO # 1.3 x10^3/uL (0.0-1.1); MONO % 10 % (0-9); NEUT # 11.4 x10^3uL (1.8-7.7); NEUT % 82 % (31-73); PLATELET COUNT 355 x10^3/uL (140-400); RED BLOOD COUNT 3.99 x10^6/uL (3.50-5.40); RED CELL DISTRIBUTION WIDTH 14.5 % (11.5-14.5); WHITE BLOOD COUNT 13.9 x10^3/uL (4.0-11.0)
[2018-02-03 17:31] LABS: PROTHROMBIN TIME PATIENT 12.4 SEC (11.7-14.0)
[2018-02-03 17:33] LABS: BLOOD UREA NITROGEN 21 mg/dL (7-20); BUN/CREATININE RATIO 30 (6-20); CALCIUM 9.2 mg/dL (8.5-10.1); CHLORIDE 99 mmol/L (98-107); CREATININE 0.7 mg/dL (0.6-1.0); GFR 84.8; GLUCOSE 159 mg/dL (70-99); POTASSIUM 4.2 mmol/L (3.5-5.1); SODIUM 143 mmol/L (136-145)
--- NOTE | 2018-02-03 17:35 | PHYS DOC ---
Past Medical History Past Medical History: Arthritis, CAD, CHF, COPD, GERD, High Cholesterol, Hypertension, Other Additional Past Medical Histor: Bradley's esophagus Past Surgical History: Cholecystectomy, Other Additional Past Surgical Histo: cataracts, cardiac stents, nasal surgery, Alcohol Use: None Drug Use: None Adult General Chief Complaint Chief Complaint: SHORTNESS OF BREATH HPI HPI 63-year-old female presents to ER via EMS for shortness of air and change in mental status. Patient's really is at bedside and reports at 8:00 this morning when he left for work patient was normal limits on mental status and was not complaining of increased shortness of air. 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 Patient around 12 PM per called and left a message on his phone which he reports patient was confused and message didn't make sense. When he called her back he reported he reports patient was more coherent and made more sense on the phone. Patient's reports patient had been speaking with home health nurses and her pulmonology office- determine patient needed to be sent to hospital for evaluation with her symptoms. Patient's states patient has been complaining of back pain for the past couple of weeks which had increased over the past 2 days. He denies pt having any recent falls/injury or recent travel. Review of Systems Review of Systems Pt on initial exam is lethargic and although wakes to her Ray calling her name- she is not answering questions or following commands. Pt's reports pt with lethargy and decreased LOC. He reports for past 2 wks she has had c/o back pain with worsening complaints in past 2 days. He reports pt was NL on mental status at 8 a.m. this morning. Unable to obtain any information from pt. Current Medications Current Medications Current Medications Medications (Trade) Dose Ordered Sig/Lucia Start Time Stop Time Status Last Admin Dose Admin Albuterol/ Ipratropium (Duoneb) 3 ml 1X ONCE 02/03/18 18:30 02/03/18 18:31 UNV Fentanyl Citrate (Fentanyl 2ml Vial) 50 mcg PRN Q1HR PRN 02/03/18 18:30 Propofol 100 ml @ 0 mls/hr CONT PRN 02/03/18 18:30 02/03/18 18:08 5 MLS/HR Allergies Allergies Allergies Coded Allergies Type Severity Reaction Last Updated Verified bupropion Allergy Intermediate hives 12/04/16 Yes Physical Exam Physical Exam Constitutional: Well developed, well nourished- lethargic and will open eyes to voice command. She repeatedly says her husbands name and then closes her eyes again. HENT: Normocephalic, atraumatic- no visible injury, mucous membranes pink/dry, no oral exudates, nose normal. [] Eyes: 3mm PERRLA- sluggish, no nystagmus, conjunctiva normal, no discharge. [] Neck: Normal range of motion, no gross adenopathy, trachea midline- no crepitus , supple, no stridor. [] Cardiovascular: Tachycardic heart rate/rhythm, no murmur [] Lungs & Thorax: Diminished lung sounds throughout all lobes- on NRB from EMS. Resp. nonlabored/equal Abdomen: Bowel sounds normal, soft/obese, no tenderness, no masses, no pulsatile masses. [] Skin: Warm, dry, no erythema, no rash. [] Back: No tenderness, no CVA tenderness. [] Extremities: No tenderness, no cyanosis, no clubbing, is not following commands on ROM of extremities- will move lt upper extremity but no purposeful movements on command, no edema. [] Neurologic: Lethargic- arouses to voice but is confused Current Patient Data Vital Signs Vital Signs Date Time Temp Pulse Resp B/P (MAP) Pulse Ox O2 Delivery O2 Flow Rate FiO2 02/03/18 18:20 98 20 79/44 (56) 99 Ventilator 02/03/18 17:50 15.0 02/03/18 16:30 97.9 97.9 Lab Values Laboratory Tests Test 02/03/18 17:00 02/03/18 17:25 02/03/18 18:16 White Blood Count 13.9 x10^3/uL (4.0-11.0) H Red Blood Count 3.99 x10^6/uL (3.50-5.40) Hemoglobin 13.0 g/dL (12.0-15.5) Hematocrit 39.5 % (36.0-47.0) Mean Corpuscular Volume 99 fL (79-100) Mean Corpuscular Hemoglobin 33 pg (25-35) Mean Corpuscular Hemoglobin Concent 33 g/dL (31-37) Red Cell Distribution Width 14.5 % (11.5-14.5) Platelet Count 355 x10^3/uL (140-400) Neutrophils (%) (Auto) 82 % (31-73) H Lymphocytes (%) (Auto) 8 % (24-48) L Monocytes (%) (Auto) 10 % (0-9) H Eosinophils (%) (Auto) 0 % (0-3) Basophils (%) (Auto) 0 % (0-3) Neutrophils # (Auto) 11.4 x10^3uL (1.8-7.7) H Lymphocytes # (Auto) 1.1 x10^3/uL (1.0-4.8) Monocytes # (Auto) 1.3 x10^3/uL (0.0-1.1) H Eosinophils # (Auto) 0.0 x10^3/uL (0.0-0.7) Basophils # (Auto) 0.0 x10^3/uL (0.0-0.2) Prothrombin Time 12.4 SEC (11.7-14.0) Prothrombin Time INR 1.0 (0.8-1.1) PTT 25 SEC (24-38) Sodium Level 143 mmol/L (136-145) Potassium Level 4.2 mmol/L (3.5-5.1) Chloride Level 99 mmol/L (98-107) Carbon Dioxide Level > 45 mmol/L (21-32) H Anion Gap (6-14) Blood Urea Nitrogen 21 mg/dL (7-20) H Creatinine 0.7 mg/dL (0.6-1.0) Estimated GFR (Cockcroft-Gault) 84.8 BUN/Creatinine Ratio 30 (6-20) H Glucose Level 159 mg/dL (70-99) H Lactic Acid Level 0.7 mmol/L (0.4-2.0) Calcium Level 9.2 mg/dL (8.5-10.1) Total Bilirubin 0.3 mg/dL (0.2-1.0) Aspartate Amino Transferase (AST) 30 U/L (15-37) Alanine Aminotransferase (ALT) 38 U/L (14-59) Alkaline Phosphatase 79 U/L (46-116) Troponin I Quantitative < 0.017 ng/mL (0.000-0.055) FI-Irf-Z-Type Natriuretic Peptide 92 pg/mL (0-124) Total Protein 7.2 g/dL (6.4-8.2) Albumin 3.5 g/dL (3.4-5.0) Albumin/Globulin Ratio 0.9 (1.0-1.7) L Ethyl Alcohol Level < 10 mg/dL (0-10) O2 Saturation 96 % (92-99) Arterial Blood pH 7.04 (7.35-7.45) *L Arterial Blood pCO2 at Patient Temp > 155 mmHg (35-46) *H Arterial Blood pO2 at Patient Temp 125 mmHg (65-108) H Arterial Blood HCO3 46 mmol/L (21-28) H Arterial Blood Base Excess 9 mmol/L (-3-3) H Oxyhemoglobin 94.8 % Methemoglobin 0.6 % (0.0-1.9) Carbon Monoxide, Quantitative 1.1 % (0.0-1.9) FiO2 100 Urine Collection Type Unknown Urine Color [place] Urine Clarity Clear Urine pH 5.5 Urine Specific [place] >=1.030 Urine Protein 100 mg/dL (NEG-TRACE) Urine Glucose (UA) Negative mg/dL (NEG) Urine Ketones (Stick) Negative mg/dL (NEG) Urine Blood Negative (NEG) Urine Nitrite Negative (NEG) Urine Bilirubin Small (NEG) Urine Urobilinogen Dipstick 1.0 mg/dL (0.2 mg/dL) Urine Leukocyte Esterase Negative (NEG) Urine RBC Occ /HPF (0-2) Urine WBC Rare /HPF (0-4) Urine Squamous Epithelial Cells Few /LPF Urine Bacteria 0 /HPF (0-FEW) Urine Mucus Slight /LPF Urine Opiates Screen Pos (NEG) Urine Methadone Screen Neg (NEG) Urine Barbiturates Neg (NEG) Urine Phencyclidine Screen Neg (NEG) Urine Amphetamine/Methamphetamine Neg (NEG) Urine Benzodiazepines Screen Neg (NEG) Urine Cocaine Screen Neg (NEG) Urine Cannabinoids Screen Neg (NEG) Urine Ethyl Alcohol Neg (NEG) Laboratory Tests 02/03/18 17:00 Laboratory Tests 02/03/18 17:00 EKG EKG No STEMI Radiology/Procedures Radiology/Procedures CT scan of the head and C-spine were completed and were free from acute findings. Initial chest x-ray also did not reveal acute consolidation. Course & Med Decision Making Course & Med Decision Making Pertinent Labs and Imaging studies reviewed. (See chart for details) Attempted NC for oxygen in place of NRB- pt's O2 sat quickly dropped to mid 70s so NRB was placed back on by RN. Following initial exam of pt discussed her case and plan with Dr. Valadez who came to room with this provider to eval. pt. RT was called to obtain stat ABGs. On NRB pt's O2 sat 99% HR 114. Pt is lethargic- will follow some commands. At this time gripped Dr. Valadez's hands with strong bilat. shim plug cutter- during this provider's exam she would not property assistant on command. Rory: I was asked to see this patient by the nurse practitioner. Upon entry to the room, the patient was moderately sedate and nonverbal. She would arouse to verbal and tactile stimuli however. She was breathing with some minor increased work of breathing but continued to protect her airway. History gathered from the at the bedside revealed the patient to have a history of COPD and prior respiratory failure. Blood gas was immediately ordered. Patient was taken to CT scan. While patient was in CT scan, her blood gas returned with a CO2 of 171. Patient was merely brought back to the emergency department and preparations were made for intubation. Procedure note: intubation. Supplies were gathered, suction, staff, airway cart. Etomidate 30 and succinylcholine 120 were given. The cords were easily visualized using a Glidescope. 7.5 ET tube was placed without difficulty through the cords. There was immediate color change on the CO2 detector. There was bilateral chest rise and fall. There were clear breath sounds bilaterally. Portable chest x-ray was completed and the tube was in proper position. The patient was connected to the ventilator. Patient did not have any hypoxic episode during the course of the intubation. Following this, Dr. Dallas was notified of the need for ICU admission and the patient's diagnosis. He did come to the bedside to evaluate the patient. Patient was admitted to the intensive care unit. Repeat blood gas was pending at the time of the admission. Patient's labs were overall unremarkable other than her elevated CO2. Chest x-ray did did not reveal pneumonia. Lactate was not elevated. Dragon Disclaimer Dragon Disclaimer This electronic medical record was generated, in whole or in part, using a voice recognition dictation system. Departure Departure Referrals: QUINN LEE MD (PCP) TONNY ANDERSON APRN Feb 03, 2018 17:35 ANGY VALADEZ DO Feb 03, 2018 19:56
[2018-02-03 17:43] LABS: ALBUMIN 3.5 g/dL (3.4-5.0); ALBUMIN/GLOBULIN RATIO 0.9 (1.0-1.7); ALK PHOS 79 U/L (46-116); ALT (SGPT) 38 U/L (14-59); AST (SGOT) 30 U/L (15-37); TOTAL BILIRUBIN 0.3 mg/dL (0.2-1.0); TOTAL PROTEIN 7.2 g/dL (6.4-8.2)
--- NOTE | 2018-02-03 17:51 | RAD ---
Examination: CHEST AP ONLY History: ER PATIENT. SHORTNESS OF AIR. LOW O2 SATS. PRIOR XRAY. Comparison/Correlation: 02/09/2017 portable chest x-ray exam Findings: Portable frontal upright views of the chest were obtained. Evaluation of the lung apices is limited due to positioning of the patient had. Heart size normal. Pulmonary vasculature is within upper limits of normal. No focal infiltrate or definite effusion. Old left upper rib fracture is present. No significant pneumothorax although evaluation is limited. Impression: No infiltrate. Electronically signed by: Yogi Sun MD (02/03/2018 5:48 PM) [facility]
[2018-02-03 17:58] LABS: CARBON DIOXIDE > 45 mmol/L (21-32)
[2018-02-03] MEDS ORDERED: PROPOFOL 50 ML IV ONE (18:03)
--- NOTE | 2018-02-03 18:04 | RAD ---
Examination: CT CODE STROKE HEAD WO History: CHANGE IN LOC DROWSY COPD Comparison/Correlation: 02/09/2017 CT head without contrast Findings: Axial images of the head were obtained without contrast. The topogram is unremarkable. Ventricles are normal size. No intracranial hemorrhage, midline shift, or mass effect. Streak artifact related to a left earring limits evaluation at this level mildly. Bony structures are unremarkable. Globes and optic nerves are unremarkable. Impression: No intracranial hemorrhage. On 02/03/2018 at 6:00 PM, results were reported to Jade Talavera APRN. Electronically signed by: Yogi Sun MD (02/03/2018 6:01 PM) [facility]
[2018-02-03] MEDS ORDERED: IPRATRPIUM/ALBUTEROL 0.5/2.5MG 3 ML NEBU. ONE (18:05)
[2018-02-03] MEDS: PROPOFOL 100 ML IV PRN ×2 (18:08→21:18)
--- NOTE | 2018-02-03 18:23 | RAD ---
Examination: CT CERVICAL SPINE WO CONTRAST History: CHANGE IN LOC DROWSY COPD Comparison/Correlation: None Findings: Axial images of the cervical spine were obtained without contrast. Sagittal and coronal reformatted images were provided. Alignment is normal. Right C5-6 neural foraminal narrowing due to bony encroachment is mild to moderate. There is no fracture. Soft tissues are normal. Mild C5-6 disc space narrowing is present. Lung apices are partially visualized and unremarkable. Impression: No fracture. Mild degenerative change. Electronically signed by: Yogi Sun MD (02/03/2018 6:19 PM) [facility]
[2018-02-03 18:29] LABS: BILIRUBIN,URINE SMALL (NEG); CLARITY,URINE CLEAR; COLOR,URINE AMBER; NITRITE,URINE NEGATIVE (NEG); PH,URINE 5.5; PROTEIN,URINE 100 mg/dL (NEG-TRACE)
[2018-02-03] MEDS ORDERED: fentaNYL PF VIAL 100 MCG/2 ML VIAL IV PRN (18:30)
[2018-02-03] MEDS ORDERED: IPRATRPIUM/ALBUTEROL 0.5/2.5MG 3 ML NEBU. NEB ONE ×2 (18:30)
[2018-02-03 18:32] LABS: BASE EXCESS COOX 9 mmol/L (-3-3); HCO3 COOX 46 mmol/L (21-28); METHEMOGLOBIN 0.6 % (0.0-1.9); OXYHEMOGLOBIN 94.8 %; PO2 COOX 125 mmHg (65-108); SAT O2 COOX 96 % (92-99)
[2018-02-03 18:34] LABS: PCO2 COOX > 155 mmHg (35-46)
[2018-02-03 18:35] LABS: BARBITURATES NEG (NEG); BENZODIAZEPINES NEG (NEG); CANNABINOIDS NEG (NEG); COCAINE NEG (NEG); METHADONE NEG (NEG); OPIATES POS (NEG); PHENCYCLIDINE NEG (NEG)
[2018-02-03 18:39] LABS: AMPHETAMINE/METHAMPHETAMINE NEG (NEG)
[2018-02-03] MEDS ORDERED: NOREPINEPHRIN 8MG/250ML PREMIX 250 ML IV ONE ×2 (18:41→19:00)
--- NOTE | 2018-02-03 18:43 | PDOC1 ---
History and Physical Date of Admission Date of Admission DATE: 02/03/18 TIME: 18:43 Identification/Chief Complaint Chief Complaint SEEN IN er ER via EMS for shortness of air and change in mental status. Patient's reports at 8:00 this morning when he left for work patient was normal limits on mental status and was not complaining of increased shortness of air. 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 Patient around 12 PM per called and left a message on his phone which he reports patient was confused pt intubated after abg showed severe hypercapnea Past Medical History Cardiovascular: CAD, HTN, VT, Hyperlipidemia Pulmonary: COPD CENTRAL NERVOUS SYSTEM: CVA GI: Other Heme/Onc: No pertinent hx Hepatobiliary: No pertinent hx Psych: No pertinent hx Musculoskeletal: Osteoarthritis Rheumatologic: No pertinent hx Infectious disease: No pertinent hx Renal/: No pertinent hx Endocrine: No pertinent hx Past Surgical History Past Surgical History: Other Family History Family History: Coronary Artery Disease, Heart Disease Social History Smoke: Quit ALCOHOL: none Drugs: None Current Medications Current Medications Current Medications Propofol 50 ml @ As Directed STK-MED ONCE IV ; Start 02/03/18 at 18:03; Stop 02/03/18 at 18:04; Status DC Albuterol/ Ipratropium (Duoneb) 3 ml STK-MED ONCE .ROUTE ; Start 02/03/18 at 18 :05; Stop 02/03/18 at 18:06; Status DC Albuterol/ Ipratropium (Duoneb) 3 ml 1X ONCE NEB ; Start 02/03/18 at 18:30; Stop 02/03/18 at 18:31; Status DC Albuterol/ Ipratropium (Duoneb) 3 ml 1X ONCE NEB ; Start 02/03/18 at 18:30; Stop 02/03/18 at 18:31; Status UNV Fentanyl Citrate 30 ml @ 0 mls/hr CONT PRN IV PER PROTOCOL; Start 02/03/18 at 18:30 Propofol 100 ml @ 0 mls/hr CONT PRN IV PER PROTOCOL; Start 02/03/18 at 18:30 Fentanyl Citrate (Fentanyl 2ml Vial) 25 mcg PRN Q1HR PRN IV MILD PAIN AND/OR RASS +1 OR +2; Start 02/03/18 at 18:30 Fentanyl Citrate (Fentanyl 2ml Vial) 50 mcg PRN Q1HR PRN IV MOD TO SEVERE PAIN / RASS +3 +4; Start 02/03/18 at 18:30 Chlorhexidine Gluconate (Peridex) 15 ml BID MM ; Start 02/03/18 at 21:00 Norepinephrine Bitartrate 250 ml @ As Directed STK-MED ONCE IV ; Start at 18:41; Stop 02/03/18 at 18:42; Status DC Active Scripts Active Prednisone 20 Mg Tablet 40 Mg PO DAILY Albuterol Sulfate Neb Soln (Albuterol Sulfate) 2.5 Mg/3 Ml Vial.neb 2.5 Mg NEB PRN Q2HR PRN 30 Days Advair 250-50 Diskus (Fluticasone/Salmeterol) 1 Each Disk.w.dev 1 Puff IH BID Reported Atenolol 25 Mg Tablet 1 Tab PO DAILY Dicyclomine Hcl 10 Mg Capsule 1 Cap PO PRN Gabapentin 400 Mg Capsule 700 Mg PO DAILY Simethicone 80 Mg Tab.chew 80 Mg PO PRN Duoneb 0.5-3(2.5) Mg/3 Ml (Albuterol/Ipratropium) 3 Ml Ampul.neb 3 Ml NEB QID Mirapex (Pramipexole Di-Hcl) 0.25 Mg Tablet 0.5 Mg PO HS Ferrous Sulfate 325 Mg Tablet 325 Mg PO DAILY Multivitamins (Multivitamin) 1 Each Capsule 1 Each PO Folic Acid 1 Mg Tablet 1 Tab PO DAILY Isosorbide Mononitrate 20 Mg Tablet 60 Mg PO DAILY Probiotic (Lactobacillus Combo No.11) 1 Each Cap.sprink 1 Each PO DAILY Fish Oil (Turner-3 Fatty Acids) 300 Mg Capsule 1,200 Mg PO BID Crestor (Rosuvastatin Calcium) 40 Mg Tablet 1 Tab PO DAILY Aspir 81 (Aspirin) 81 Mg Tablet. 1 Tab PO DAILY Plavix (Clopidogrel Bisulfate) 75 Mg Tablet 75 Mg PO DAILY Oxycodone Hcl 10 Mg Tablet 10 Mg PO PRN TID PRN Meloxicam 7.5 Mg Tablet 7.5 Mg PO DAILY Prilosec Otc (Omeprazole Magnesium) 20 Mg Tablet. 20 Mg PO DAILY Famotidine 20 Mg Tablet 20 Mg PO BID Allergies Allergies: Coded Allergies: bupropion (Verified Allergy, Intermediate, hives, 12/04/16) Physical Exam Physical Exam Constitutional: Well developed, well nourished- lethargic and will open eyes to voice command.prior to intubation HENT: Normocephalic, atraumatic- no visible injury, mucous membranes pink/dry, no oral exudates, nose normal. [] Eyes: 3mm PERRLA- sluggish, no nystagmus, conjunctiva normal, no discharge. [] Neck: Normal range of motion, no gross adenopathy, trachea midline- no crepitus , supple, no stridor. [] Cardiovascular: Tachycardic heart rate/rhythm, no murmur [] Lungs & Thorax: Diminished lung sounds throughout all lobes- on NRB from EMS. Resp. nonlabored/equal Abdomen: Bowel sounds normal, soft/obese, no tenderness, no masses, no pulsatile masses. [] Skin: Warm, dry, no erythema, no rash. [] Back: No tenderness, no CVA tenderness. [] Extremities: No tenderness, no cyanosis, no clubbing, is not following commands on ROM of extremities- will move lt upper extremity but no purposeful movements on command, no edema. [] Neurologic: Lethargic- arouses to voice but is confused General: Cooperative HEENT: Atraumatic Heart: RRR, no gallops Breasts: Not examined Rectal Exam: not examined Neuro: Cranial nerves 3-12 NL Vitals Vitals Vital Signs Date Time Temp Pulse Resp B/P (MAP) Pulse Ox O2 Delivery O2 Flow Rate FiO2 02/03/18 18:19 100 Ventilator 02/03/18 17:50 15.0 02/03/18 16:30 97.9 104 14 148/68 (94) 97.9 Labs Labs Laboratory Tests Test 02/03/18 17:00 02/03/18 17:25 02/03/18 18:16 White Blood Count 13.9 x10^3/uL (4.0-11.0) Red Blood Count 3.99 x10^6/uL (3.50-5.40) Hemoglobin 13.0 g/dL (12.0-15.5) Hematocrit 39.5 % (36.0-47.0) Mean Corpuscular Volume 99 fL (79-100) Mean Corpuscular Hemoglobin 33 pg (25-35) Mean Corpuscular Hemoglobin Concent 33 g/dL (31-37) Red Cell Distribution Width 14.5 % (11.5-14.5) Platelet Count 355 x10^3/uL (140-400) Neutrophils (%) (Auto) 82 % (31-73) Lymphocytes (%) (Auto) 8 % (24-48) Monocytes (%) (Auto) 10 % (0-9) Eosinophils (%) (Auto) 0 % (0-3) Basophils (%) (Auto) 0 % (0-3) Neutrophils # (Auto) 11.4 x10^3uL (1.8-7.7) Lymphocytes # (Auto) 1.1 x10^3/uL (1.0-4.8) Monocytes # (Auto) 1.3 x10^3/uL (0.0-1.1) Eosinophils # (Auto) 0.0 x10^3/uL (0.0-0.7) Basophils # (Auto) 0.0 x10^3/uL (0.0-0.2) Prothrombin Time 12.4 SEC (11.7-14.0) Prothromb Time International Ratio 1.0 (0.8-1.1) Activated Partial Thromboplast Time 25 SEC (24-38) Sodium Level 143 mmol/L (136-145) Potassium Level 4.2 mmol/L (3.5-5.1) Chloride Level 99 mmol/L (98-107) Carbon Dioxide Level > 45 mmol/L (21-32) Anion Gap (6-14) Blood Urea Nitrogen 21 mg/dL (7-20) Creatinine 0.7 mg/dL (0.6-1.0) Estimated GFR (Cockcroft-Gault) 84.8 BUN/Creatinine Ratio 30 (6-20) Glucose Level 159 mg/dL (70-99) Lactic Acid Level 0.7 mmol/L (0.4-2.0) Calcium Level 9.2 mg/dL (8.5-10.1) Total Bilirubin 0.3 mg/dL (0.2-1.0) Aspartate Amino Transf (AST/SGOT) 30 U/L (15-37) Alanine Aminotransferase (ALT/SGPT) 38 U/L (14-59) Alkaline Phosphatase 79 U/L (46-116) Troponin I Quantitative < 0.017 ng/mL (0.000-0.055) BK-Wil-P-Type Natriuretic Peptide 92 pg/mL (0-124) Total Protein 7.2 g/dL (6.4-8.2) Albumin 3.5 g/dL (3.4-5.0) Albumin/Globulin Ratio 0.9 (1.0-1.7) Ethyl Alcohol Level < 10 mg/dL (0-10) O2 Saturation 96 % (92-99) Arterial Blood pH 7.04 (7.35-7.45) Arterial Blood pCO2 at Patient Temp > 155 mmHg (35-46) Arterial Blood pO2 at Patient Temp 125 mmHg (65-108) Arterial Blood HCO3 46 mmol/L (21-28) Arterial Blood Base Excess 9 mmol/L (-3-3) Oxyhemoglobin 94.8 % Methemoglobin 0.6 % (0.0-1.9) Carbon Monoxide, Quantitative 1.1 % (0.0-1.9) FiO2 100 Urine Opiates Screen Pos (NEG) Urine Methadone Screen Neg (NEG) Urine Barbiturates Neg (NEG) Urine Phencyclidine Screen Neg (NEG) Urine Amphetamine/Methamphetamine Neg (NEG) Urine Benzodiazepines Screen Neg (NEG) Urine Cocaine Screen Neg (NEG) Urine Cannabinoids Screen Neg (NEG) Urine Ethyl Alcohol Neg (NEG) Laboratory Tests Test 02/03/18 17:00 02/03/18 17:25 02/03/18 18:16 White Blood Count 13.9 x10^3/uL (4.0-11.0) Red Blood Count 3.99 x10^6/uL (3.50-5.40) Hemoglobin 13.0 g/dL (12.0-15.5) Hematocrit 39.5 % (36.0-47.0) Mean Corpuscular Volume 99 fL (79-100) Mean Corpuscular Hemoglobin 33 pg (25-35) Mean Corpuscular Hemoglobin Concent 33 g/dL (31-37) Red Cell Distribution Width 14.5 % (11.5-14.5) Platelet Count 355 x10^3/uL (140-400) Neutrophils (%) (Auto) 82 % (31-73) Lymphocytes (%) (Auto) 8 % (24-48) Monocytes (%) (Auto) 10 % (0-9) Eosinophils (%) (Auto) 0 % (0-3) Basophils (%) (Auto) 0 % (0-3) Neutrophils # (Auto) 11.4 x10^3uL (1.8-7.7) Lymphocytes # (Auto) 1.1 x10^3/uL (1.0-4.8) Monocytes # (Auto) 1.3 x10^3/uL (0.0-1.1) Eosinophils # (Auto) 0.0 x10^3/uL (0.0-0.7) Basophils # (Auto) 0.0 x10^3/uL (0.0-0.2) Prothrombin Time 12.4 SEC (11.7-14.0) Prothromb Time International Ratio 1.0 (0.8-1.1) Activated Partial Thromboplast Time 25 SEC (24-38) Sodium Level 143 mmol/L (136-145) Potassium Level 4.2 mmol/L (3.5-5.1) Chloride Level 99 mmol/L (98-107) Carbon Dioxide Level > 45 mmol/L (21-32) Anion Gap (6-14) Blood Urea Nitrogen 21 mg/dL (7-20) Creatinine 0.7 mg/dL (0.6-1.0) Estimated GFR (Cockcroft-Gault) 84.8 BUN/Creatinine Ratio 30 (6-20) Glucose Level 159 mg/dL (70-99) Lactic Acid Level 0.7 mmol/L (0.4-2.0) Calcium Level 9.2 mg/dL (8.5-10.1) Total Bilirubin 0.3 mg/dL (0.2-1.0) Aspartate Amino Transf (AST/SGOT) 30 U/L (15-37) Alanine Aminotransferase (ALT/SGPT) 38 U/L (14-59) Alkaline Phosphatase 79 U/L (46-116) Troponin I Quantitative < 0.017 ng/mL (0.000-0.055) KL-Tnl-T-Type Natriuretic Peptide 92 pg/mL (0-124) Total Protein 7.2 g/dL (6.4-8.2) Albumin 3.5 g/dL (3.4-5.0) Albumin/Globulin Ratio 0.9 (1.0-1.7) Ethyl Alcohol Level < 10 mg/dL (0-10) O2 Saturation 96 % (92-99) Arterial Blood pH 7.04 (7.35-7.45) Arterial Blood pCO2 at Patient Temp > 155 mmHg (35-46) Arterial Blood pO2 at Patient Temp 125 mmHg (65-108) Arterial Blood HCO3 46 mmol/L (21-28) Arterial Blood Base Excess 9 mmol/L (-3-3) Oxyhemoglobin 94.8 % Methemoglobin 0.6 % (0.0-1.9) Carbon Monoxide, Quantitative 1.1 % (0.0-1.9) FiO2 100 Urine Opiates Screen Pos (NEG) Urine Methadone Screen Neg (NEG) Urine Barbiturates Neg (NEG) Urine Phencyclidine Screen Neg (NEG) Urine Amphetamine/Methamphetamine Neg (NEG) Urine Benzodiazepines Screen Neg (NEG) Urine Cocaine Screen Neg (NEG) Urine Cannabinoids Screen Neg (NEG) Urine Ethyl Alcohol Neg (NEG) VTE Prophylaxis Ordered VTE Prophylaxis Devices: Yes VTE Pharmacological Prophylaxi: Yes Assessment/Plan Assessment/Plan impression 1. severe hypercapnic resp failure 2. endstage COPD 3. OBESITY 4. Metabolic encephalopathy plan vent support pulm following emperic iv antibiotics, possible aspiration iv protonix gi prophylaxis iv fluid support sq lovenox dvt prophylaxis FAUSTO Redmond MD Feb 03, 2018 18:43
[2018-02-03 18:46] LABS: BACTERIA,URINE 0 /HPF (0-FEW); RBC,URINE OCC /HPF (0-2); SQUAMOUS EPITHELIAL CELL,UR FEW /LPF; WBC,URINE RARE /HPF (0-4)
[2018-02-03] MEDS ORDERED: ETOMIDATE 20 MG/10 ML VIAL. IV ONE ×2 (19:00)
[2018-02-03] MEDS ORDERED: SUCCINYLCHOLINE 200 MG/10 ML VIAL. IV ONE (19:00)
[2018-02-03] MEDS ORDERED: IV NORMAL SALINE 500ML BAG 500 ML IV ONE ×2 (19:00)
[2018-02-03] MEDS ORDERED: ALBUTEROL SULFATE 2.5 MG/3 ML NEBU. ONE (19:14)
[2018-02-03] MEDS ORDERED: ALBUTEROL SULFATE 2.5 MG/3 ML NEBU. CONT NEB ONE (19:15)
--- NOTE | 2018-02-03 19:31 | EKG ---
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
[2018-02-03 20:53] LABS: BASE EXCESS ABG 11 mmol/L (-3-3); HCO3 ABG 37 mmol/L (21-28); PCO2 ABG 58 mmHg (35-46); PO2 ABG 73 mmHg (65-108); SAT O2 ABG 95 % (92-99)
[2018-02-03] MEDS ORDERED: CHLORHEXIDINE 0.12% 15 ML MOUTHWASH. MM SCH (21:00)
[2018-02-03 21:03] LABS: FIO2 ABG 50
[2018-02-03] MEDS ORDERED: fentaNYL PF VIAL 100 MCG/2 ML VIAL ONE (22:34)
[2018-02-03] MEDS ORDERED: PIP/TAZO PER PHARMACY MC PRN (23:15)
[2018-02-03] MEDS ORDERED: ALBUTEROL SULFATE 2.5 MG/3 ML NEBU. NEB PRN (23:15)
[2018-02-04] VITALS (27 sets, daily range): BP systolic 82–145; BP diastolic 44–91
--- NOTE | 2018-02-04 00:14 | RAD ---
Examination: PORTABLE CHEST 1V History: ER PATIENT. INTUBATION/OG TUBE Comparison/Correlation: Portable chest x-ray exam performed earlier on the same day Findings: Portable supine frontal views of the chest were obtained. Endotracheal tube terminates 2.6 cm from the rhea. Nasogastric tube terminates within the stomach. Heart size is normal. Pulmonary hyperinflation is present. Nonspecific interstitial thickening of lung yee noted. No pneumothorax. Calcified granulomas are present. No focal infiltrate. Impression: Endotracheal and nasogastric tubes are in place. Nonspecific interstitial thickening of the lung yee. Electronically signed by: Yogi Sun MD (02/04/2018 12:11 AM) [facility]
[2018-02-04] MEDS ORDERED: PANTOPRAZOLE IV PUSH 40 MG VIAL. IVP ONE (00:30)
[2018-02-04] MEDS: ENOXAPARIN 40 MG/0.4 ML SYRINGE. SQ SCH ×2 (00:40→20:32)
[2018-02-04] MEDS: PIPERACILLIN/TAZOBACTAM 3.375 GM in IV NORMAL SALINE 50ML 50 ML IV SCH ×4 (00:41→18:28)
[2018-02-04] MEDS: IV NORMAL SALINE 1000ML BAG 1,000 ML IV SCH ×2 (00:41→12:38)
[2018-02-04] MEDS ORDERED: IV NORMAL SALINE 500ML BAG 500 ML IV ONE (03:30)
[2018-02-04] MEDS: PROPOFOL 100 ML IV PRN (03:47)
[2018-02-04] MEDS: PANTOPRAZOLE IV PUSH 40 MG VIAL. IVP SCH (07:40)
[2018-02-04] MEDS: ASPIRIN ENTERIC COATED 81 MG TABLET.DR. PO SCH (07:40)
[2018-02-04] MEDS: ISOSORBIDE MONONITRATE ER 30 MG TAB.ER.24H PO SCH (07:41)
[2018-02-04] MEDS: FERROUS SULFATE 325 MG TABLET. PO SCH (07:41)
[2018-02-04 07:53] LABS: BASO # 0.1 x10^3/uL (0.0-0.2); BASO % 1 % (0-3); EOS # 0.1 x10^3/uL (0.0-0.7); EOS % 1 % (0-3); HEMATOCRIT 37.8 % (36.0-47.0); HEMOGLOBIN 12.5 g/dL (12.0-15.5); LYMPH # 2.1 x10^3/uL (1.0-4.8); LYMPH % 20 % (24-48); MEAN CORPUSCULAR HEMOGLOBIN 33 pg (25-35); MEAN CORPUSCULAR HGB CONC 33 g/dL (31-37); MEAN CORPUSCULAR VOLUME 98 fL (79-100); MONO # 1.3 x10^3/uL (0.0-1.1); MONO % 12 % (0-9); NEUT # 7.2 x10^3uL (1.8-7.7); NEUT % 67 % (31-73); PLATELET COUNT 308 x10^3/uL (140-400); RED BLOOD COUNT 3.85 x10^6/uL (3.50-5.40); RED CELL DISTRIBUTION WIDTH 14.7 % (11.5-14.5); WHITE BLOOD COUNT 10.6 x10^3/uL (4.0-11.0)
[2018-02-04 08:10] LABS: ALBUMIN 2.7 g/dL (3.4-5.0); ALBUMIN/GLOBULIN RATIO 0.8 (1.0-1.7); CALCIUM 8.5 mg/dL (8.5-10.1); CREATININE 0.9 mg/dL (0.6-1.0); GFR 63.4; TOTAL BILIRUBIN 0.6 mg/dL (0.2-1.0); TOTAL PROTEIN 5.9 g/dL (6.4-8.2)
[2018-02-04 08:38] LABS: BASE EXCESS ABG 7 mmol/L (-3-3); HCO3 ABG 34 mmol/L (21-28); PCO2 ABG 55 mmHg (35-46); PO2 ABG 90 mmHg (65-108); SAT O2 ABG 96 % (92-99)
--- NOTE | 2018-02-04 08:45 | PDOC2 ---
CARDIAC CONSULT DATE OF CONSULT Date of Consult DATE: 02/04/18 TIME: 08:25 REASON FOR CONSULT Reason for Consult: Pulmonary HTN/CHF REFERRING PHYSICIAN Referring Physician: Fullbright SOURCE Source: Chart review HISTORY OF PRESENT ILLNESS HISTORY OF PRESENT ILLNESS This is a 63 yo female who is O2 dependent presents in ED with shortness of breath. She has severe COPD and O2 dependent at home. She is currently intubated with vent. Her SOA became progressive yesterday per chart review as I was unable to obtain details with pt intubated. She was acting confused and her SOA was not getting better prompting this admission. There was no mention of chest pain, palpitations, nausea or vomiting. PAST MEDICAL HISTORY Past Medical History Cardiovascular: CAD ( s/p PCI/stent placement ), HTN, MS, Hyperlipidemia Pulmonary: COPD (O2 dependent), pneumonia, [facility] CENTRAL NERVOUS SYSTEM: CVA GI: Other (Barretts esophagus ), diverticulosis Heme/Onc: No pertinent hx Hepatobiliary: cholelithiasis Psych: No pertinent hx Musculoskeletal: Osteoarthritis, cervical stenosis Rheumatologic: No pertinent hx Infectious disease: No pertinent hx ENT: cataract Renal/: No pertinent hx Endocrine: No pertinent hx Dermatology: No pertinent hx PAST SURGICAL HISTORY Past Surgical History c section, tubal ligation, PCI/stents, nose repair, cholecystectomy, cataract removal FAMILY HISTORY Family History: Heart Disease (mother) SOCIAL HISTORY Smoke: <1 pack per day ALCOHOL: none Drugs: None Lives: with Family CURRENT MEDICATIONS CURRENT MEDICATIONS Current Medications Medications (Trade) Dose Ordered Sig/Lucia Route PRN Reason Start Time Stop Time Status Last Admin Dose Admin Albuterol/ Ipratropium (Duoneb) 3 ml 1X ONCE NEB 02/03/18 18:30 02/03/18 18:31 DC 02/03/18 18:20 Fentanyl Citrate 30 ml @ 0 mls/hr CONT PRN IV PER PROTOCOL 02/03/18 18:30 02/04/18 05:11 Propofol 100 ml @ 0 mls/hr CONT PRN IV PER PROTOCOL 02/03/18 18:30 02/04/18 03:47 Sodium Chloride 500 ml @ 500 mls/hr 1X ONCE IV 02/03/18 19:00 02/03/18 19:59 DC 02/03/18 18:30 Norepinephrine Bitartrate 250 ml @ 1.875 mls/ hr 1X ONCE IV 02/03/18 19:00 11/5/18 08:19 02/03/18 18:55 Etomidate (Amidate) 20 mg 1X ONCE IV 02/03/18 19:00 02/03/18 19:02 DC 02/03/18 17:58 Etomidate (Amidate) 20 mg 1X ONCE IV 02/03/18 19:00 02/03/18 19:04 DC 02/03/18 18:03 Succinylcholine Chloride (Anectine) 120 mg 1X ONCE IV 02/03/18 19:00 02/03/18 19:01 DC 02/03/18 18:03 Albuterol Sulfate (Ventolin Neb Soln) 10 mg 1X ONCE CONT NEB 02/03/18 19:15 02/03/18 19:16 DC 02/03/18 19:22 Pantoprazole Sodium (PROTONIX VIAL for IV PUSH) 40 mg DAILYAC IVP 02/04/18 07:30 02/04/18 07:40 Enoxaparin Sodium (Lovenox 40mg Syringe) 40 mg QHS SQ 02/03/18 23:15 02/04/18 00:40 Piperacillin Sod/ Tazobactam Sod 3.375 gm/Sodium Chloride 50 ml @ 100 mls/hr Q6HRS IV 02/04/18 00:00 02/04/18 05:45 Sodium Chloride 1,000 ml @ 80 mls/hr [id number] IV 02/03/18 23:45 02/04/18 00:41 Pantoprazole Sodium (PROTONIX VIAL for IV PUSH) 40 mg 1X ONCE IVP 02/04/18 00:30 02/04/18 00:31 DC 02/04/18 00:44 Sodium Chloride 500 ml @ 500 mls/hr 1X ONCE IV 02/04/18 03:30 02/04/18 04:29 DC 02/04/18 03:47 ALLERGIES ALLERGIES: Coded Allergies: bupropion (Verified Allergy, Intermediate, hives, 12/04/16) ROS Review of System unreliable, family not available, vented PHYSICAL EXAM General: Other (intubated) HEENT: Atraumatic, Mucous membr. moist/pink Lungs: Other (diminished with faint wheeze) Heart: Regular rate (sinus tach), Other (distant heart sounds) Abdomen: Soft Extremities: No cyanosis, Other (1+ bilateral LE pitting edema) Skin: No breakdown, No significant lesion Neuro: Sensation intact Psych/Mental Status: Other (sedated) MUSCULOSKELETAL: Osteoarthritic changes both hands VITALS VITALS Vital Signs Date Time Temp Pulse Resp B/P (MAP) Pulse Ox O2 Delivery O2 Flow Rate FiO2 02/04/18 08:16 100 Ventilator 02/04/18 06:00 108 20 90/48 (62) 02/04/18 05:41 15.0 02/04/18 04:00 100.0 100.0 LABS Lab: Laboratory Tests Test 02/03/18 17:00 02/03/18 17:25 02/03/18 18:16 02/03/18 20:50 White Blood Count 13.9 x10^3/uL (4.0-11.0) Red Blood Count 3.99 x10^6/uL (3.50-5.40) Hemoglobin 13.0 g/dL (12.0-15.5) Hematocrit 39.5 % (36.0-47.0) Mean Corpuscular Volume 99 fL (79-100) Mean Corpuscular Hemoglobin 33 pg (25-35) Mean Corpuscular Hemoglobin Concent 33 g/dL (31-37) Red Cell Distribution Width 14.5 % (11.5-14.5) Platelet Count 355 x10^3/uL (140-400) Neutrophils (%) (Auto) 82 % (31-73) Lymphocytes (%) (Auto) 8 % (24-48) Monocytes (%) (Auto) 10 % (0-9) Eosinophils (%) (Auto) 0 % (0-3) Basophils (%) (Auto) 0 % (0-3) Neutrophils # (Auto) 11.4 x10^3uL (1.8-7.7) Lymphocytes # (Auto) 1.1 x10^3/uL (1.0-4.8) Monocytes # (Auto) 1.3 x10^3/uL (0.0-1.1) Eosinophils # (Auto) 0.0 x10^3/uL (0.0-0.7) Basophils # (Auto) 0.0 x10^3/uL (0.0-0.2) Prothrombin Time 12.4 SEC (11.7-14.0) Prothromb Time International Ratio 1.0 (0.8-1.1) Activated Partial Thromboplast Time 25 SEC (24-38) Sodium Level 143 mmol/L (136-145) Potassium Level 4.2 mmol/L (3.5-5.1) Chloride Level 99 mmol/L (98-107) Carbon Dioxide Level > 45 mmol/L (21-32) Anion Gap (6-14) Blood Urea Nitrogen 21 mg/dL (7-20) Creatinine 0.7 mg/dL (0.6-1.0) Estimated GFR (Cockcroft-Gault) 84.8 BUN/Creatinine Ratio 30 (6-20) Glucose Level 159 mg/dL (70-99) Lactic Acid Level 0.7 mmol/L (0.4-2.0) Calcium Level 9.2 mg/dL (8.5-10.1) Total Bilirubin 0.3 mg/dL (0.2-1.0) Aspartate Amino Transf (AST/SGOT) 30 U/L (15-37) Alanine Aminotransferase (ALT/SGPT) 38 U/L (14-59) Alkaline Phosphatase 79 U/L (46-116) Troponin I Quantitative < 0.017 ng/mL (0.000-0.055) FG-Cnr-F-Type Natriuretic Peptide 92 pg/mL (0-124) Total Protein 7.2 g/dL (6.4-8.2) Albumin 3.5 g/dL (3.4-5.0) Albumin/Globulin Ratio 0.9 (1.0-1.7) Ethyl Alcohol Level < 10 mg/dL (0-10) O2 Saturation 96 % (92-99) 95 % (92-99) Arterial Blood pH 7.04 (7.35-7.45) 7.42 (7.35-7.45) Arterial Blood pCO2 at Patient Temp > 155 mmHg (35-46) 58 mmHg (35-46) Arterial Blood pO2 at Patient Temp 125 mmHg (65-108) 73 mmHg (65-108) Arterial Blood HCO3 46 mmol/L (21-28) 37 mmol/L (21-28) Arterial Blood Base Excess 9 mmol/L (-3-3) 11 mmol/L (-3-3) Oxyhemoglobin 94.8 % Methemoglobin 0.6 % (0.0-1.9) Carbon Monoxide, Quantitative 1.1 % (0.0-1.9) FiO2 100 50 Urine Collection Type Unknown Urine Color [place] Urine Clarity Clear Urine pH 5.5 Urine Specific [place] >=1.030 Urine Protein 100 mg/dL (NEG-TRACE) Urine Glucose (UA) Negative mg/dL (NEG) Urine Ketones (Stick) Negative mg/dL (NEG) Urine Blood Negative (NEG) Urine Nitrite Negative (NEG) Urine Bilirubin Small (NEG) Urine Urobilinogen Dipstick 1.0 mg/dL (0.2 mg/dL) Urine Leukocyte Esterase Negative (NEG) Urine RBC Occ /HPF (0-2) Urine WBC Rare /HPF (0-4) Urine Squamous Epithelial Cells Few /LPF Urine Bacteria 0 /HPF (0-FEW) Urine Mucus Slight /LPF Urine Opiates Screen Pos (NEG) Urine Methadone Screen Neg (NEG) Urine Barbiturates Neg (NEG) Urine Phencyclidine Screen Neg (NEG) Urine Amphetamine/Methamphetamine Neg (NEG) Urine Benzodiazepines Screen Neg (NEG) Urine Cocaine Screen Neg (NEG) Urine Cannabinoids Screen Neg (NEG) Urine Ethyl Alcohol Neg (NEG) Test 02/03/18 21:25 02/04/18 00:15 02/04/18 07:30 Troponin I Quantitative 0.033 ng/mL (0.000-0.055) 0.030 ng/mL (0.000-0.055) White Blood Count 10.6 x10^3/uL (4.0-11.0) Red Blood Count 3.85 x10^6/uL (3.50-5.40) Hemoglobin 12.5 g/dL (12.0-15.5) Hematocrit 37.8 % (36.0-47.0) Mean Corpuscular Volume 98 fL (79-100) Mean Corpuscular Hemoglobin 33 pg (25-35) Mean Corpuscular Hemoglobin Concent 33 g/dL (31-37) Red Cell Distribution Width 14.7 % (11.5-14.5) Platelet Count 308 x10^3/uL (140-400) Neutrophils (%) (Auto) 67 % (31-73) Lymphocytes (%) (Auto) 20 % (24-48) Monocytes (%) (Auto) 12 % (0-9) Eosinophils (%) (Auto) 1 % (0-3) Basophils (%) (Auto) 1 % (0-3) Neutrophils # (Auto) 7.2 x10^3uL (1.8-7.7) Lymphocytes # (Auto) 2.1 x10^3/uL (1.0-4.8) Monocytes # (Auto) 1.3 x10^3/uL (0.0-1.1) Eosinophils # (Auto) 0.1 x10^3/uL (0.0-0.7) Basophils # (Auto) 0.1 x10^3/uL (0.0-0.2) ECHOCARDIOGRAM ECHOCARDIOGRAM <Conclusion> The left ventricle systolic function is normal. The Ejection Fraction is 55-60%. There is normal LV segmental wall motion. Transmitral Doppler flow pattern is Grade I-abnormal relaxation pattern. Trace mitral regurgitation. Trace tricuspid regurgitation. The PA pressure was estimated at 42 mmHg. There is no evidence of significant pericardial effusion. DATE: 02/10/17 1535 HEART CATH HEART CATH Conclusion Patent stents in the right coronary and left circumflex arteries and the diagonal branch of the left anterior descending artery. There is a 40-50% in- stent restenosis noted in the left anterior descending artery that was physiologically not significant based on FFR measurement of 0.87. Recommendations Medical Therapy DATE: 06/07/16 0941 ASSESSMENT/PLAN ASSESSMENT/PLAN 1. Acute on chronic respiratory failure with underlying AECOPD/pulmonary HTN 2. Suspect chronic diastolic CHF: No acute CHF. pro NT BNP at 92. Dyspnea due to severe COPD. 3. Hypotension: likely from sedation 4. CAD: past stents as above recent [facility] report. Clinically stable. reactive sinus tach, no ectopies 5. HTN 6. HLP 7. Hypoxic encephalopathy Recommendations 1. Currently intubated/vent. Follow pulmonary recommendation 2. Titrate levo once sedation is off. IVF. 3. Restart secondary prevention measures once PO allowed and BP trends are better. 4. TTE today ARIANNA FAUST APRN Feb 04, 2018 08:45
--- NOTE | 2018-02-04 08:53 | EKG ---
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
[2018-02-04] MEDS ORDERED: NON FORMULARY ITEM (Omeprazole Magnesium (Prilosec Otc) 20 MG) PO SCH (09:00)
[2018-02-04] MEDS: OMEGA-3 FATTY ACIDS/FISH OIL 1,000 MG CAPSULE. PO SCH ×2 (09:00→20:31)
[2018-02-04] MEDS ORDERED: FAMOTIDINE 20 MG TABLET. PO SCH (09:00)
[2018-02-04] MEDS: CLOPIDOGREL BISULFATE 75 MG TABLET PO SCH (10:05)
[2018-02-04] MEDS: FOLIC ACID 1 MG TABLET. PO SCH (10:05)
[2018-02-04] MEDS: LACTOBACILLUS RHAMNOSUS GG 1 CAPSULE. PO SCH ×2 (10:05→20:31)
[2018-02-04 10:09] LABS: FIO2 ABG 50
[2018-02-04] MEDS: IPRATRPIUM/ALBUTEROL 0.5/2.5MG 3 ML NEBU. NEB SCH ×3 (10:47→20:01)
--- NOTE | 2018-02-04 11:08 | CARD ---
MR#: [id number] Date of Study: 02/04/2018 Ordering Physician: FAUSTO LEMUS, Referring Physician: FAUSTO LEMUS, Tech: Tena Garcia [facility] APPROVED REPORT EXAM: Two-dimensional and M-mode echocardiogram with Doppler and color Doppler. Other Information Quality : Technically LimitedHR: 117bpm INDICATION PHTN 2D DIMENSIONS RVDd3.3 (2.9-3.5cm)IVSd1.1 (0.7-1.1cm) Aortic Root(2D)3.2 (2.0-3.7cm)LVDd3.4 (3.9-5.9cm) LVOT Diameter2.1 (1.8-2.4cm)PWd1.0 (0.7-1.1cm) LVDs2.2 (2.5-4.0cm)FS (%) 36.0 % SV30.9 mlLVEF(%)66.8 (>50%) Mitral Valve MV E Eycfmffn87.1cm/sMV DECEL SEOQ62qe MV A Gmsvuvol35.1cm/sE/A Ratio0.7 MV A [id number] Tricuspid Valve TR P. Fbsqfxdr670pw/sRAP NQCSTNML8kgOd TR Peak Gr.[id number] LEFT VENTRICLE The left ventricle is normal size. There is normal left ventricular wall thickness. Probable normal L V systolic function. EF estimated at 55%. RIGHT VENTRICLE The right ventricle is normal size. There is normal right ventricular wall thickness. The right ventr icular systolic function is normal. ATRIA Not well visualized. AORTIC VALVE Aortic valve not visualized. MITRAL VALVE Mitral valve not well visualized. TRICUSPID VALVE Not well visualized. Doppler and Color Flow revealed moderate pulmonary hypertension. The PA pressure was estimated at 41 mmHg. PULMONIC VALVE Pulmonic valve not well visualized. GREAT VESSELS The aortic root is normal in size. PERICARDIAL EFFUSION There is a trace circumferential pericardial effusion. Critical Notification Critical Value: No <Conclusion> Probable normal LV systolic function. EF estimated at 55%. Technically very difficult study Unable to determine wall motion well. Consider GAUTAM if needed. Probable moderate pulmonary HTN. Signed by : Jameel Larson, Electronically Approved : 02/04/2018 11:06:46
[2018-02-04 11:19] LABS: BASE EXCESS ABG 8 mmol/L (-3-3); FIO2 ABG 50; HCO3 ABG 36 mmol/L (21-28); PCO2 ABG 65 mmHg (35-46); PO2 ABG 89 mmHg (65-108); SAT O2 ABG 96 % (92-99)
[2018-02-04 11:44] LABS: BASE EXCESS ABG 8 mmol/L (-3-3); HCO3 ABG 36 mmol/L (21-28); PO2 ABG 86 mmHg (65-108); SAT O2 ABG 95 % (92-99)
[2018-02-04 11:46] LABS: FIO2 ABG 50; PCO2 ABG 70 mmHg (35-46)
--- NOTE | 2018-02-04 11:47 | PDOC ---
PROGRESS NOTES Chief Complaint Chief Complaint Acute on chronic respiratory failure with underlying AECOPD/pulmonary HTN Suspect chronic diastolic CHF: No acute CHF. 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 Vitals Vitals Vital Signs Date Time Temp Pulse Resp B/P (MAP) Pulse Ox O2 Delivery O2 Flow Rate FiO2 02/04/18 11:00 126 23 113/58 (76) 100 Ventilator 02/04/18 08:00 99.9 99.9 02/04/18 05:41 15.0 Physical Exam General: Alert, Other (intubated, but looking around) Heart: Regular rate (sinus tach), Other (distant heart sounds) Lungs: Wheezing, Other (on vent) Abdomen: Soft Extremities: No cyanosis, Other (1+ bilateral LE pitting edema) Skin: No breakdown, No significant lesion Labs LABS Laboratory Tests Test 02/03/18 17:00 02/03/18 17:25 02/03/18 18:16 02/03/18 20:50 White Blood Count 13.9 x10^3/uL (4.0-11.0) Red Blood Count 3.99 x10^6/uL (3.50-5.40) Hemoglobin 13.0 g/dL (12.0-15.5) Hematocrit 39.5 % (36.0-47.0) Mean Corpuscular Volume 99 fL (79-100) Mean Corpuscular Hemoglobin 33 pg (25-35) Mean Corpuscular Hemoglobin Concent 33 g/dL (31-37) Red Cell Distribution Width 14.5 % (11.5-14.5) Platelet Count 355 x10^3/uL (140-400) Neutrophils (%) (Auto) 82 % (31-73) Lymphocytes (%) (Auto) 8 % (24-48) Monocytes (%) (Auto) 10 % (0-9) Eosinophils (%) (Auto) 0 % (0-3) Basophils (%) (Auto) 0 % (0-3) Neutrophils # (Auto) 11.4 x10^3uL (1.8-7.7) Lymphocytes # (Auto) 1.1 x10^3/uL (1.0-4.8) Monocytes # (Auto) 1.3 x10^3/uL (0.0-1.1) Eosinophils # (Auto) 0.0 x10^3/uL (0.0-0.7) Basophils # (Auto) 0.0 x10^3/uL (0.0-0.2) Prothrombin Time 12.4 SEC (11.7-14.0) Prothromb Time International Ratio 1.0 (0.8-1.1) Activated Partial Thromboplast Time 25 SEC (24-38) Sodium Level 143 mmol/L (136-145) Potassium Level 4.2 mmol/L (3.5-5.1) Chloride Level 99 mmol/L (98-107) Carbon Dioxide Level > 45 mmol/L (21-32) Anion Gap (6-14) Blood Urea Nitrogen 21 mg/dL (7-20) Creatinine 0.7 mg/dL (0.6-1.0) Estimated GFR (Cockcroft-Gault) 84.8 BUN/Creatinine Ratio 30 (6-20) Glucose Level 159 mg/dL (70-99) Lactic Acid Level 0.7 mmol/L (0.4-2.0) Calcium Level 9.2 mg/dL (8.5-10.1) Total Bilirubin 0.3 mg/dL (0.2-1.0) Aspartate Amino Transf (AST/SGOT) 30 U/L (15-37) Alanine Aminotransferase (ALT/SGPT) 38 U/L (14-59) Alkaline Phosphatase 79 U/L (46-116) Troponin I Quantitative < 0.017 ng/mL (0.000-0.055) KK-Sdc-C-Type Natriuretic Peptide 92 pg/mL (0-124) Total Protein 7.2 g/dL (6.4-8.2) Albumin 3.5 g/dL (3.4-5.0) Albumin/Globulin Ratio 0.9 (1.0-1.7) Ethyl Alcohol Level < 10 mg/dL (0-10) O2 Saturation 96 % (92-99) 95 % (92-99) Arterial Blood pH 7.04 (7.35-7.45) 7.42 (7.35-7.45) Arterial Blood pCO2 at Patient Temp > 155 mmHg (35-46) 58 mmHg (35-46) Arterial Blood pO2 at Patient Temp 125 mmHg (65-108) 73 mmHg (65-108) Arterial Blood HCO3 46 mmol/L (21-28) 37 mmol/L (21-28) Arterial Blood Base Excess 9 mmol/L (-3-3) 11 mmol/L (-3-3) Oxyhemoglobin 94.8 % Methemoglobin 0.6 % (0.0-1.9) Carbon Monoxide, Quantitative 1.1 % (0.0-1.9) FiO2 100 50 Urine Collection Type Unknown Urine Color [place] Urine Clarity Clear Urine pH 5.5 Urine Specific [place] >=1.030 Urine Protein 100 mg/dL (NEG-TRACE) Urine Glucose (UA) Negative mg/dL (NEG) Urine Ketones (Stick) Negative mg/dL (NEG) Urine Blood Negative (NEG) Urine Nitrite Negative (NEG) Urine Bilirubin Small (NEG) Urine Urobilinogen Dipstick 1.0 mg/dL (0.2 mg/dL) Urine Leukocyte Esterase Negative (NEG) Urine RBC Occ /HPF (0-2) Urine WBC Rare /HPF (0-4) Urine Squamous Epithelial Cells Few /LPF Urine Bacteria 0 /HPF (0-FEW) Urine Mucus Slight /LPF Urine Opiates Screen Pos (NEG) Urine Methadone Screen Neg (NEG) Urine Barbiturates Neg (NEG) Urine Phencyclidine Screen Neg (NEG) Urine Amphetamine/Methamphetamine Neg (NEG) Urine Benzodiazepines Screen Neg (NEG) Urine Cocaine Screen Neg (NEG) Urine Cannabinoids Screen Neg (NEG) Urine Ethyl Alcohol Neg (NEG) Test 02/03/18 21:25 02/04/18 00:15 02/04/18 07:30 02/04/18 08:30 Troponin I Quantitative 0.033 ng/mL (0.000-0.055) 0.030 ng/mL (0.000-0.055) White Blood Count 10.6 x10^3/uL (4.0-11.0) Red Blood Count 3.85 x10^6/uL (3.50-5.40) Hemoglobin 12.5 g/dL (12.0-15.5) Hematocrit 37.8 % (36.0-47.0) Mean Corpuscular Volume 98 fL (79-100) Mean Corpuscular Hemoglobin 33 pg (25-35) Mean Corpuscular Hemoglobin Concent 33 g/dL (31-37) Red Cell Distribution Width 14.7 % (11.5-14.5) Platelet Count 308 x10^3/uL (140-400) Neutrophils (%) (Auto) 67 % (31-73) Lymphocytes (%) (Auto) 20 % (24-48) Monocytes (%) (Auto) 12 % (0-9) Eosinophils (%) (Auto) 1 % (0-3) Basophils (%) (Auto) 1 % (0-3) Neutrophils # (Auto) 7.2 x10^3uL (1.8-7.7) Lymphocytes # (Auto) 2.1 x10^3/uL (1.0-4.8) Monocytes # (Auto) 1.3 x10^3/uL (0.0-1.1) Eosinophils # (Auto) 0.1 x10^3/uL (0.0-0.7) Basophils # (Auto) 0.1 x10^3/uL (0.0-0.2) Sodium Level 144 mmol/L (136-145) Potassium Level 4.0 mmol/L (3.5-5.1) Chloride Level 102 mmol/L (98-107) Carbon Dioxide Level 31 mmol/L (21-32) Anion Gap 11 (6-14) Blood Urea Nitrogen 22 mg/dL (7-20) Creatinine 0.9 mg/dL (0.6-1.0) Estimated GFR (Cockcroft-Gault) 63.4 BUN/Creatinine Ratio 24 (6-20) Glucose Level 116 mg/dL (70-99) Calcium Level 8.5 mg/dL (8.5-10.1) Total Bilirubin 0.6 mg/dL (0.2-1.0) Aspartate Amino Transf (AST/SGOT) 26 U/L (15-37) Alanine Aminotransferase (ALT/SGPT) 26 U/L (14-59) Alkaline Phosphatase 63 U/L (46-116) Total Protein 5.9 g/dL (6.4-8.2) Albumin 2.7 g/dL (3.4-5.0) Albumin/Globulin Ratio 0.8 (1.0-1.7) O2 Saturation 96 % (92-99) Arterial Blood pH 7.40 (7.35-7.45) Arterial Blood pCO2 at Patient Temp 55 mmHg (35-46) Arterial Blood pO2 at Patient Temp 90 mmHg (65-108) Arterial Blood HCO3 34 mmol/L (21-28) Arterial Blood Base Excess 7 mmol/L (-3-3) FiO2 50 Test 02/04/18 09:50 O2 Saturation 96 % (92-99) Arterial Blood pH 7.36 (7.35-7.45) Arterial Blood pCO2 at Patient Temp 65 mmHg (35-46) Arterial Blood pO2 at Patient Temp 89 mmHg (65-108) Arterial Blood HCO3 36 mmol/L (21-28) Arterial Blood Base Excess 8 mmol/L (-3-3) FiO2 50 Review of Systems Review of Systems Pt intubated. Unable to obtain. Assessment and Plan Assessmemt and Plan Problems Medical Problems: (1) Respiratory failure Status: Acute Assessment: Acute on chronic respiratory failure with underlying AECOPD/pulmonary HTN Suspect chronic diastolic CHF: No acute CHF. pro NT BNP at 92 Dyspnea due to severe COPD Hypotension: likely from sedation CAD: reactive sinus tach, no ectopies HTN HLP Hypoxic encephalopathy Plan: ICU monitoring Vent weaning, possible extubation today if approved by pulm Monitor labs IV steroids Abx Breathing treatments Home meds DVT ppx Comment Review of Relevant I have reviewed the following items afshin (where applicable) has been applied. Labs Laboratory Tests Test 02/03/18 17:00 02/03/18 17:25 02/03/18 18:16 02/03/18 20:50 White Blood Count 13.9 x10^3/uL (4.0-11.0) Red Blood Count 3.99 x10^6/uL (3.50-5.40) Hemoglobin 13.0 g/dL (12.0-15.5) Hematocrit 39.5 % (36.0-47.0) Mean Corpuscular Volume 99 fL (79-100) Mean Corpuscular Hemoglobin 33 pg (25-35) Mean Corpuscular Hemoglobin Concent 33 g/dL (31-37) Red Cell Distribution Width 14.5 % (11.5-14.5) Platelet Count 355 x10^3/uL (140-400) Neutrophils (%) (Auto) 82 % (31-73) Lymphocytes (%) (Auto) 8 % (24-48) Monocytes (%) (Auto) 10 % (0-9) Eosinophils (%) (Auto) 0 % (0-3) Basophils (%) (Auto) 0 % (0-3) Neutrophils # (Auto) 11.4 x10^3uL (1.8-7.7) Lymphocytes # (Auto) 1.1 x10^3/uL (1.0-4.8) Monocytes # (Auto) 1.3 x10^3/uL (0.0-1.1) Eosinophils # (Auto) 0.0 x10^3/uL (0.0-0.7) Basophils # (Auto) 0.0 x10^3/uL (0.0-0.2) Prothrombin Time 12.4 SEC (11.7-14.0) Prothromb Time International Ratio 1.0 (0.8-1.1) Activated Partial Thromboplast Time 25 SEC (24-38) Sodium Level 143 mmol/L (136-145) Potassium Level 4.2 mmol/L (3.5-5.1) Chloride Level 99 mmol/L (98-107) Carbon Dioxide Level > 45 mmol/L (21-32) Anion Gap (6-14) Blood Urea Nitrogen 21 mg/dL (7-20) Creatinine 0.7 mg/dL (0.6-1.0) Estimated GFR (Cockcroft-Gault) 84.8 BUN/Creatinine Ratio 30 (6-20) Glucose Level 159 mg/dL (70-99) Lactic Acid Level 0.7 mmol/L (0.4-2.0) Calcium Level 9.2 mg/dL (8.5-10.1) Total Bilirubin 0.3 mg/dL (0.2-1.0) Aspartate Amino Transf (AST/SGOT) 30 U/L (15-37) Alanine Aminotransferase (ALT/SGPT) 38 U/L (14-59) Alkaline Phosphatase 79 U/L (46-116) Troponin I Quantitative < 0.017 ng/mL (0.000-0.055) IP-Wnk-V-Type Natriuretic Peptide 92 pg/mL (0-124) Total Protein 7.2 g/dL (6.4-8.2) Albumin 3.5 g/dL (3.4-5.0) Albumin/Globulin Ratio 0.9 (1.0-1.7) Ethyl Alcohol Level < 10 mg/dL (0-10) O2 Saturation 96 % (92-99) 95 % (92-99) Arterial Blood pH 7.04 (7.35-7.45) 7.42 (7.35-7.45) Arterial Blood pCO2 at Patient Temp > 155 mmHg (35-46) 58 mmHg (35-46) Arterial Blood pO2 at Patient Temp 125 mmHg (65-108) 73 mmHg (65-108) Arterial Blood HCO3 46 mmol/L (21-28) 37 mmol/L (21-28) Arterial Blood Base Excess 9 mmol/L (-3-3) 11 mmol/L (-3-3) Oxyhemoglobin 94.8 % Methemoglobin 0.6 % (0.0-1.9) Carbon Monoxide, Quantitative 1.1 % (0.0-1.9) FiO2 100 50 Urine Collection Type Unknown Urine Color [place] Urine Clarity Clear Urine pH 5.5 Urine Specific [place] >=1.030 Urine Protein 100 mg/dL (NEG-TRACE) Urine Glucose (UA) Negative mg/dL (NEG) Urine Ketones (Stick) Negative mg/dL (NEG) Urine Blood Negative (NEG) Urine Nitrite Negative (NEG) Urine Bilirubin Small (NEG) Urine Urobilinogen Dipstick 1.0 mg/dL (0.2 mg/dL) Urine Leukocyte Esterase Negative (NEG) Urine RBC Occ /HPF (0-2) Urine WBC Rare /HPF (0-4) Urine Squamous Epithelial Cells Few /LPF Urine Bacteria 0 /HPF (0-FEW) Urine Mucus Slight /LPF Urine Opiates Screen Pos (NEG) Urine Methadone Screen Neg (NEG) Urine Barbiturates Neg (NEG) Urine Phencyclidine Screen Neg (NEG) Urine Amphetamine/Methamphetamine Neg (NEG) Urine Benzodiazepines Screen Neg (NEG) Urine Cocaine Screen Neg (NEG) Urine Cannabinoids Screen Neg (NEG) Urine Ethyl Alcohol Neg (NEG) Test 02/03/18 21:25 02/04/18 00:15 02/04/18 07:30 02/04/18 08:30 Troponin I Quantitative 0.033 ng/mL (0.000-0.055) 0.030 ng/mL (0.000-0.055) White Blood Count 10.6 x10^3/uL (4.0-11.0) Red Blood Count 3.85 x10^6/uL (3.50-5.40) Hemoglobin 12.5 g/dL (12.0-15.5) Hematocrit 37.8 % (36.0-47.0) Mean Corpuscular Volume 98 fL (79-100) Mean Corpuscular Hemoglobin 33 pg (25-35) Mean Corpuscular Hemoglobin Concent 33 g/dL (31-37) Red Cell Distribution Width 14.7 % (11.5-14.5) Platelet Count 308 x10^3/uL (140-400) Neutrophils (%) (Auto) 67 % (31-73) Lymphocytes (%) (Auto) 20 % (24-48) Monocytes (%) (Auto) 12 % (0-9) Eosinophils (%) (Auto) 1 % (0-3) Basophils (%) (Auto) 1 % (0-3) Neutrophils # (Auto) 7.2 x10^3uL (1.8-7.7) Lymphocytes # (Auto) 2.1 x10^3/uL (1.0-4.8) Monocytes # (Auto) 1.3 x10^3/uL (0.0-1.1) Eosinophils # (Auto) 0.1 x10^3/uL (0.0-0.7) Basophils # (Auto) 0.1 x10^3/uL (0.0-0.2) Sodium Level 144 mmol/L (136-145) Potassium Level 4.0 mmol/L (3.5-5.1) Chloride Level 102 mmol/L (98-107) Carbon Dioxide Level 31 mmol/L (21-32) Anion Gap 11 (6-14) Blood Urea Nitrogen 22 mg/dL (7-20) Creatinine 0.9 mg/dL (0.6-1.0) Estimated GFR (Cockcroft-Gault) 63.4 BUN/Creatinine Ratio 24 (6-20) Glucose Level 116 mg/dL (70-99) Calcium Level 8.5 mg/dL (8.5-10.1) Total Bilirubin 0.6 mg/dL (0.2-1.0) Aspartate Amino Transf (AST/SGOT) 26 U/L (15-37) Alanine Aminotransferase (ALT/SGPT) 26 U/L (14-59) Alkaline Phosphatase 63 U/L (46-116) Total Protein 5.9 g/dL (6.4-8.2) Albumin 2.7 g/dL (3.4-5.0) Albumin/Globulin Ratio 0.8 (1.0-1.7) O2 Saturation 96 % (92-99) Arterial Blood pH 7.40 (7.35-7.45) Arterial Blood pCO2 at Patient Temp 55 mmHg (35-46) Arterial Blood pO2 at Patient Temp 90 mmHg (65-108) Arterial Blood HCO3 34 mmol/L (21-28) Arterial Blood Base Excess 7 mmol/L (-3-3) FiO2 50 Test 02/04/18 09:50 O2 Saturation 96 % (92-99) Arterial Blood pH 7.36 (7.35-7.45) Arterial Blood pCO2 at Patient Temp 65 mmHg (35-46) Arterial Blood pO2 at Patient Temp 89 mmHg (65-108) Arterial Blood HCO3 36 mmol/L (21-28) Arterial Blood Base Excess 8 mmol/L (-3-3) FiO2 50 Laboratory Tests Test 02/03/18 17:00 02/03/18 17:25 02/03/18 18:16 02/03/18 20:50 White Blood Count 13.9 x10^3/uL (4.0-11.0) Red Blood Count 3.99 x10^6/uL (3.50-5.40) Hemoglobin 13.0 g/dL (12.0-15.5) Hematocrit 39.5 % (36.0-47.0) Mean Corpuscular Volume 99 fL (79-100) Mean Corpuscular Hemoglobin 33 pg (25-35) Mean Corpuscular Hemoglobin Concent 33 g/dL (31-37) Red Cell Distribution Width 14.5 % (11.5-14.5) Platelet Count 355 x10^3/uL (140-400) Neutrophils (%) (Auto) 82 % (31-73) Lymphocytes (%) (Auto) 8 % (24-48) Monocytes (%) (Auto) 10 % (0-9) Eosinophils (%) (Auto) 0 % (0-3) Basophils (%) (Auto) 0 % (0-3) Neutrophils # (Auto) 11.4 x10^3uL (1.8-7.7) Lymphocytes # (Auto) 1.1 x10^3/uL (1.0-4.8) Monocytes # (Auto) 1.3 x10^3/uL (0.0-1.1) Eosinophils # (Auto) 0.0 x10^3/uL (0.0-0.7) Basophils # (Auto) 0.0 x10^3/uL (0.0-0.2) Prothrombin Time 12.4 SEC (11.7-14.0) Prothromb Time International Ratio 1.0 (0.8-1.1) Activated Partial Thromboplast Time 25 SEC (24-38) Sodium Level 143 mmol/L (136-145) Potassium Level 4.2 mmol/L (3.5-5.1) Chloride Level 99 mmol/L (98-107) Carbon Dioxide Level > 45 mmol/L (21-32) Anion Gap (6-14) Blood Urea Nitrogen 21 mg/dL (7-20) Creatinine 0.7 mg/dL (0.6-1.0) Estimated GFR (Cockcroft-Gault) 84.8 BUN/Creatinine Ratio 30 (6-20) Glucose Level 159 mg/dL (70-99) Lactic Acid Level 0.7 mmol/L (0.4-2.0) Calcium Level 9.2 mg/dL (8.5-10.1) Total Bilirubin 0.3 mg/dL (0.2-1.0) Aspartate Amino Transf (AST/SGOT) 30 U/L (15-37) Alanine Aminotransferase (ALT/SGPT) 38 U/L (14-59) Alkaline Phosphatase 79 U/L (46-116) Troponin I Quantitative < 0.017 ng/mL (0.000-0.055) MF-Cfm-X-Type Natriuretic Peptide 92 pg/mL (0-124) Total Protein 7.2 g/dL (6.4-8.2) Albumin 3.5 g/dL (3.4-5.0) Albumin/Globulin Ratio 0.9 (1.0-1.7) Ethyl Alcohol Level < 10 mg/dL (0-10) O2 Saturation 96 % (92-99) 95 % (92-99) Arterial Blood pH 7.04 (7.35-7.45) 7.42 (7.35-7.45) Arterial Blood pCO2 at Patient Temp > 155 mmHg (35-46) 58 mmHg (35-46) Arterial Blood pO2 at Patient Temp 125 mmHg (65-108) 73 mmHg (65-108) Arterial Blood HCO3 46 mmol/L (21-28) 37 mmol/L (21-28) Arterial Blood Base Excess 9 mmol/L (-3-3) 11 mmol/L (-3-3) Oxyhemoglobin 94.8 % Methemoglobin 0.6 % (0.0-1.9) Carbon Monoxide, Quantitative 1.1 % (0.0-1.9) FiO2 100 50 Urine Collection Type Unknown Urine Color [place] Urine Clarity Clear Urine pH 5.5 Urine Specific [place] >=1.030 Urine Protein 100 mg/dL (NEG-TRACE) Urine Glucose (UA) Negative mg/dL (NEG) Urine Ketones (Stick) Negative mg/dL (NEG) Urine Blood Negative (NEG) Urine Nitrite Negative (NEG) Urine Bilirubin Small (NEG) Urine Urobilinogen Dipstick 1.0 mg/dL (0.2 mg/dL) Urine Leukocyte Esterase Negative (NEG) Urine RBC Occ /HPF (0-2) Urine WBC Rare /HPF (0-4) Urine Squamous Epithelial Cells Few /LPF Urine Bacteria 0 /HPF (0-FEW) Urine Mucus Slight /LPF Urine Opiates Screen Pos (NEG) Urine Methadone Screen Neg (NEG) Urine Barbiturates Neg (NEG) Urine Phencyclidine Screen Neg (NEG) Urine Amphetamine/Methamphetamine Neg (NEG) Urine Benzodiazepines Screen Neg (NEG) Urine Cocaine Screen Neg (NEG) Urine Cannabinoids Screen Neg (NEG) Urine Ethyl Alcohol Neg (NEG) Test 02/03/18 21:25 02/04/18 00:15 02/04/18 07:30 02/04/18 08:30 Troponin I Quantitative 0.033 ng/mL (0.000-0.055) 0.030 ng/mL (0.000-0.055) White Blood Count 10.6 x10^3/uL (4.0-11.0) Red Blood Count 3.85 x10^6/uL (3.50-5.40) Hemoglobin 12.5 g/dL (12.0-15.5) Hematocrit 37.8 % (36.0-47.0) Mean Corpuscular Volume 98 fL (79-100) Mean Corpuscular Hemoglobin 33 pg (25-35) Mean Corpuscular Hemoglobin Concent 33 g/dL (31-37) Red Cell Distribution Width 14.7 % (11.5-14.5) Platelet Count 308 x10^3/uL (140-400) Neutrophils (%) (Auto) 67 % (31-73) Lymphocytes (%) (Auto) 20 % (24-48) Monocytes (%) (Auto) 12 % (0-9) Eosinophils (%) (Auto) 1 % (0-3) Basophils (%) (Auto) 1 % (0-3) Neutrophils # (Auto) 7.2 x10^3uL (1.8-7.7) Lymphocytes # (Auto) 2.1 x10^3/uL (1.0-4.8) Monocytes # (Auto) 1.3 x10^3/uL (0.0-1.1) Eosinophils # (Auto) 0.1 x10^3/uL (0.0-0.7) Basophils # (Auto) 0.1 x10^3/uL (0.0-0.2) Sodium Level 144 mmol/L (136-145) Potassium Level 4.0 mmol/L (3.5-5.1) Chloride Level 102 mmol/L (98-107) Carbon Dioxide Level 31 mmol/L (21-32) Anion Gap 11 (6-14) Blood Urea Nitrogen 22 mg/dL (7-20) Creatinine 0.9 mg/dL (0.6-1.0) Estimated GFR (Cockcroft-Gault) 63.4 BUN/Creatinine Ratio 24 (6-20) Glucose Level 116 mg/dL (70-99) Calcium Level 8.5 mg/dL (8.5-10.1) Total Bilirubin 0.6 mg/dL (0.2-1.0) Aspartate Amino Transf (AST/SGOT) 26 U/L (15-37) Alanine Aminotransferase (ALT/SGPT) 26 U/L (14-59) Alkaline Phosphatase 63 U/L (46-116) Total Protein 5.9 g/dL (6.4-8.2) Albumin 2.7 g/dL (3.4-5.0) Albumin/Globulin Ratio 0.8 (1.0-1.7) O2 Saturation 96 % (92-99) Arterial Blood pH 7.40 (7.35-7.45) Arterial Blood pCO2 at Patient Temp 55 mmHg (35-46) Arterial Blood pO2 at Patient Temp 90 mmHg (65-108) Arterial Blood HCO3 34 mmol/L (21-28) Arterial Blood Base Excess 7 mmol/L (-3-3) FiO2 50 Test 02/04/18 09:50 O2 Saturation 96 % (92-99) Arterial Blood pH 7.36 (7.35-7.45) Arterial Blood pCO2 at Patient Temp 65 mmHg (35-46) Arterial Blood pO2 at Patient Temp 89 mmHg (65-108) Arterial Blood HCO3 36 mmol/L (21-28) Arterial Blood Base Excess 8 mmol/L (-3-3) FiO2 50 Medications Current Medications Propofol 50 ml @ As Directed STK-MED ONCE IV ; Start 02/03/18 at 18:03; Stop 02/03/18 at 18:04; Status DC Albuterol/ Ipratropium (Duoneb) 3 ml STK-MED ONCE .ROUTE ; Start 02/03/18 at 18 :05; Stop 02/03/18 at 18:06; Status DC Albuterol/ Ipratropium (Duoneb) 3 ml 1X ONCE NEB Last administered on at 18:20; Start 02/03/18 at 18:30; Stop 02/03/18 at 18:31; Status DC Albuterol/ Ipratropium (Duoneb) 3 ml 1X ONCE NEB ; Start 02/03/18 at 18:30; Stop 02/03/18 at 18:31; Status UNV Fentanyl Citrate 30 ml @ 0 mls/hr CONT PRN IV PER PROTOCOL Last administered on 02/04/18at 05:11; Start 02/03/18 at 18:30 Propofol 100 ml @ 0 mls/hr CONT PRN IV PER PROTOCOL Last administered on at 03:47; Start 02/03/18 at 18:30 Fentanyl Citrate (Fentanyl 2ml Vial) 25 mcg PRN Q1HR PRN IV MILD PAIN AND/OR RASS +1 OR +2; Start 02/03/18 at 18:30 Fentanyl Citrate (Fentanyl 2ml Vial) 50 mcg PRN Q1HR PRN IV MOD TO SEVERE PAIN / RASS +3 +4; Start 02/03/18 at 18:30 Chlorhexidine Gluconate (Peridex) 15 ml BID MM ; Start 02/03/18 at 21:00; Stop 02/04/18 at 07:43; Status DC Norepinephrine Bitartrate 250 ml @ As Directed STK-MED ONCE IV ; Start at 18:41; Stop 02/03/18 at 18:42; Status DC Sodium Chloride 500 ml @ 500 mls/hr 1X ONCE IV Last administered on at 18:30; Start 02/03/18 at 19:00; Stop 02/03/18 at 19:59; Status DC Norepinephrine Bitartrate 250 ml @ 1.875 mls/ hr 1X ONCE IV Last administered on 02/03/18at 18:55; Start 02/03/18 at 19:00; Stop 02/09/18 at 08: 19 Etomidate (Amidate) 20 mg 1X ONCE IV Last administered on 02/03/18at 17:58; Start 02/03/18 at 19:00; Stop 02/03/18 at 19:02; Status DC Etomidate (Amidate) 20 mg 1X ONCE IV Last administered on 02/03/18at 18:03; Start 02/03/18 at 19:00; Stop 02/03/18 at 19:04; Status DC Succinylcholine Chloride (Anectine) 120 mg 1X ONCE IV Last administered on at 18:03; Start 02/03/18 at 19:00; Stop 02/03/18 at 19:01; Status DC Sodium Chloride 500 ml @ 500 mls/hr 1X ONCE IV ; Start 02/03/18 at 19:00; Stop 02/03/18 at 19:59; Status UNV Albuterol Sulfate (Ventolin Neb Soln) 10 mg 1X ONCE CONT NEB Last administered on 02/03/18at 19:22; Start 02/03/18 at 19:15; Stop 02/03/18 at 19 :16; Status DC Albuterol Sulfate (Ventolin Neb Soln) 2.5 mg STK-MED ONCE .ROUTE ; Start at 19:14; Stop 02/03/18 at 19:15; Status DC Fentanyl Citrate (Fentanyl 2ml Vial) 100 mcg STK-MED ONCE .ROUTE ; Start at 22:34; Stop 02/03/18 at 22:35; Status DC Piperacillin Sod/ Tazobactam Sod (Zosyn Per Pharmacy) 1 each PRN DAILY PRN MC SEE COMMENTS; Start 02/03/18 at 23:15 Albuterol Sulfate (Ventolin Neb Soln) 2.5 mg PRN Q2HR PRN NEB SHORTNESS OF BREATH; Start 02/03/18 at 23:15 Aspirin (Ecotrin) 81 mg DAILY PO ; Start 02/04/18 at 09:00 Clopidogrel Bisulfate (Plavix) 75 mg DAILY PO Last administered on 02/04/18at 10:05; Start 02/04/18 at 09:00 Famotidine (Pepcid) 20 mg BID PO ; Start 02/04/18 at 09:00; Stop 02/04/18 at 09:00; Status DC Ferrous Sulfate (Feosol) 325 mg DAILY PO ; Start 02/04/18 at 09:00 Folic Acid (Folic Acid) 1 mg DAILY PO Last administered on 02/04/18at 10:05; Start 02/04/18 at 09:00 Albuterol/ Ipratropium (Duoneb) 3 ml RTQID NEB Last administered on 02/04/18at 10:47; Start 02/04/18 at 08:00 Isosorbide Mononitrate (Imdur) 60 mg DAILY PO ; Start 02/04/18 at 09:00 Lactobacillus Rhamnosus (Culturelle) 1 cap BID PO Last administered on at 10:05; Start 02/04/18 at 09:00 Fish Oil (Fish Oil) 1,000 mg BID PO ; Start 02/04/18 at 09:00 Non-Formulary Medication (Omeprazole Magnesium (Prilosec Otc)) 20 mg DAILY PO ; Start 02/04/18 at 09:00; Status UNV Atorvastatin Calcium (Lipitor) 80 mg QHS PO ; Start 02/04/18 at 21:00 Pantoprazole Sodium (PROTONIX VIAL for IV PUSH) 40 mg DAILYAC IVP Last administered on 02/04/18at 07:40; Start 02/04/18 at 07:30 Enoxaparin Sodium (Lovenox 40mg Syringe) 40 mg QHS SQ Last administered on at 00:40; Start 02/03/18 at 23:15 Pantoprazole Sodium (PROTONIX VIAL for IV PUSH) 40 mg 1X ONCE IVP ; Start at 00:00; Stop 02/03/18 at 00:01; Status Cancel Piperacillin Sod/ Tazobactam Sod 3.375 gm/Sodium Chloride 50 ml @ 100 mls/hr Q6HRS IV Last administered on 02/04/18at 05:45; Start 02/04/18 at 00:00 Sodium Chloride 1,000 ml @ 80 mls/hr [id number] IV Last administered on at 00:41; Start 02/03/18 at 23:45 Pantoprazole Sodium (PROTONIX VIAL for IV PUSH) 40 mg 1X ONCE IVP Last administered on 02/04/18at 00:44; Start 02/04/18 at 00:30; Stop 02/04/18 at 00 :31; Status DC Sodium Chloride 500 ml @ 500 mls/hr 1X ONCE IV Last administered on at 03:47; Start 02/04/18 at 03:30; Stop 02/04/18 at 04:29; Status DC Active Scripts Active Prednisone 20 Mg Tablet 40 Mg PO DAILY Albuterol Sulfate Neb Soln (Albuterol Sulfate) 2.5 Mg/3 Ml Vial.neb 2.5 Mg NEB PRN Q2HR PRN 30 Days Advair 250-50 Diskus (Fluticasone/Salmeterol) 1 Each Disk.w.dev 1 Puff IH BID Reported Atenolol 25 Mg Tablet 1 Tab PO DAILY Dicyclomine Hcl 10 Mg Capsule 1 Cap PO PRN Gabapentin 400 Mg Capsule 700 Mg PO DAILY Simethicone 80 Mg Tab.chew 80 Mg PO PRN Duoneb 0.5-3(2.5) Mg/3 Ml (Albuterol/Ipratropium) 3 Ml Ampul.neb 3 Ml NEB QID Mirapex (Pramipexole Di-Hcl) 0.25 Mg Tablet 0.5 Mg PO HS Ferrous Sulfate 325 Mg Tablet 325 Mg PO DAILY Multivitamins (Multivitamin) 1 Each Capsule 1 Each PO Folic Acid 1 Mg Tablet 1 Tab PO DAILY Isosorbide Mononitrate 20 Mg Tablet 60 Mg PO DAILY Probiotic (Lactobacillus Combo No.11) 1 Each Cap.sprink 1 Each PO DAILY Fish Oil ([place]-3 Fatty Acids) 300 Mg Capsule 1,200 Mg PO BID Crestor (Rosuvastatin Calcium) 40 Mg Tablet 1 Tab PO DAILY Aspir 81 (Aspirin) 81 Mg Tablet.dr 1 Tab PO DAILY Plavix (Clopidogrel Bisulfate) 75 Mg Tablet 75 Mg PO DAILY Oxycodone Hcl 10 Mg Tablet 10 Mg PO PRN TID PRN Meloxicam 7.5 Mg Tablet 7.5 Mg PO DAILY Prilosec Otc (Omeprazole Magnesium) 20 Mg Tablet.dr 20 Mg PO DAILY Famotidine 20 Mg Tablet 20 Mg PO BID Vitals/I & O Vital Sign - Last 24 Hours 02/03/18 02/03/18 02/03/18 02/03/18 16:30 17:08 17:37 17:50 Temp 97.9 97.9 Pulse 104 116 112 Resp 14 18 16 B/P (MAP) 148/68 (94) 198/81 (120) 183/79 (113) Pulse Ox 99 100 O2 Delivery NonRebreather Mask NonRebreather Mask NonRebreather Mask NonRebreather Mask O2 Flow Rate 10.0 10.0 10.0 15.0 02/03/18 02/03/18 02/03/18 02/03/18 17:55 18:19 18:20 18:33 Pulse 116 98 98 Resp 20 13 B/P (MAP) 178/83 (114) 79/44 (56) 71/45 (54) Pulse Ox 96 100 99 100 O2 Delivery Bag Valve Mask Ventilator Ventilator Ventilator 02/03/18 02/03/18 02/03/18 02/03/18 18:43 18:58 19:03 19:25 Pulse 92 94 92 B/P (MAP) 81/48 (59) 118/59 (78) 136/65 (88) Pulse Ox 100 99 99 100 O2 Delivery Ventilator Ventilator Ventilator Ventilator 02/03/18 02/03/18 02/03/18 02/03/18 19:28 20:00 20:00 20:15 Temp 99.6 99.6 Pulse 104 114 114 Resp 18 22 20 B/P (MAP) 111/59 (76) 100/56 (71) 106/57 (73) Pulse Ox 100 99 99 O2 Delivery Ventilator Mechanical Ventilator Ventilator Ventilator 02/03/18 02/03/18 02/03/18 02/03/18 20:30 20:45 21:00 21:00 Pulse 102 104 102 Resp 20 20 20 B/P (MAP) 91/56 (68) 83/56 (65) 100/56 (71) Pulse Ox 99 99 94 99 O2 Delivery Ventilator Ventilator Ventilator Ventilator 02/03/18 02/03/18 02/03/18 02/03/18 21:05 21:35 22:00 23:00 Pulse 102 Resp 20 20 B/P (MAP) 94/61 (72) Pulse Ox 100 99 100 O2 Delivery Ventilator Ventilator Ventilator O2 Flow Rate 15.0 02/03/18 02/03/18 02/04/18 02/04/18 23:00 23:59 01:00 01:00 Temp 98.0 98.0 Pulse 95 95 Resp 20 20 B/P (MAP) 106/71 (83) 106/91 (96) Pulse Ox 99 99 100 O2 Delivery Ventilator Mechanical Ventilator Ventilator Ventilator 02/04/18 02/04/18 02/04/18 02/04/18 02:00 03:00 03:20 04:00 Temp 100.0 100.0 Pulse 101 104 100 Resp 20 20 20 B/P (MAP) 86/53 (64) 91/62 (72) 82/63 (69) Pulse Ox 100 100 100 100 O2 Delivery Ventilator Ventilator Ventilator Ventilator 02/04/18 02/04/18 02/04/18 02/04/18 04:00 05:00 05:11 05:41 Pulse 110 Resp 20 20 20 B/P (MAP) 119/85 (96) Pulse Ox 100 100 100 O2 Delivery Mechanical Ventilator Ventilator Ventilator O2 Flow Rate 15.0 15.0 02/04/18 02/04/18 02/04/18 02/04/18 06:00 07:00 08:00 08:00 Temp 99.9 99.9 Pulse 108 104 110 Resp 20 20 20 B/P (MAP) 90/48 (62) 92/60 (71) 99/70 (80) Pulse Ox 99 100 100 O2 Delivery Ventilator Ventilator Mechanical Ventilator Ventilator 02/04/18 02/04/18 02/04/18 02/04/18 08:16 08:45 09:00 09:15 Pulse 117 122 123 Resp 20 B/P (MAP) 129/64 (85) 112/66 (81) 110/66 (81) Pulse Ox 100 98 O2 Delivery Ventilator Ventilator 02/04/18 02/04/18 02/04/18 02/04/18 09:30 09:45 10:00 10:47 Pulse 132 130 130 Resp 16 B/P (MAP) 145/82 (103) 134/71 (92) 132/63 (86) Pulse Ox 100 100 O2 Delivery Ventilator Ventilator 02/04/18 11:00 Pulse 126 Resp 23 B/P (MAP) 113/58 (76) Pulse Ox 100 O2 Delivery Ventilator Intake and Output 02/03/18 02/03/18 02/04/18 15:00 23:00 07:00 Intake Total 2857.1 ml Output Total 60 ml 95 ml Balance -60 ml 2762.1 ml GRACE DAVISON III DO Feb 04, 2018 11:47
--- NOTE | 2018-02-04 12:18 | RAD ---
Portable abdomen, 02/04/2018: HISTORY: Gastric distention, check NG tube placement A supine view of the upper abdomen demonstrates an NG tube extending into the proximal body of the stomach. There is gas and stool in scattered portions of the colon in a nonspecific pattern. Surgical clips are present right upper quadrant. There is no evidence of organomegaly. IMPRESSION: The NG tube extends into the proximal body of the stomach. Electronically signed by: Nathan Vaughn MD (02/04/2018 12:15 PM) [facility]
--- NOTE | 2018-02-04 12:58 | CONS ---
DATE OF CONSULTATION: ATTENDING PHYSICIAN: Dr. Dallas. REASON FOR CONSULTATION: Respiratory failure. 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 She follows Dr. Jemal Cazares at [facility]. She has been on palliative care before and has been on ventilator before. She presented to the hospital with increasing shortness of breath and also lethargy and encephalopathy. The patient's mental status was marginal and as a result, she was intubated in the ER. Her arterial blood gases were highly abnormal with a pH of 7.04, pCO2 155 and a pO2 125 on 100% FiO2, post-intubation. Since then the ABGs have improved with latest pH of 7.40, pCO2 of 55 and a pO2 of 90. This is on 50% FiO2. The patient's was at the bedside, he gave much of the history. He said there was no recent cough or fever or chills. No chest pain, nausea, vomiting or diarrhea. I have reviewed the patient's chest x-ray post-intubation. There is evidence of emphysema and slightly prominent vascular markings, but no definite consolidation seen. Currently, she is on a CPAP trial. She is awake and following commands. PAST MEDICAL HISTORY: History of CAD status post PCI and stent placement, hypertension, [place], hyperlipidemia, history of oxygen dependent and suspected end-stage COPD, history of pneumonia, prior respiratory failure, history of GREGORIA, CVA and diverticulosis. Cholelithiasis, osteoarthritis, cervical stenosis. PAST SURGICAL HISTORY: , tubal ligation, PCI stents, cholecystectomy and cataract removal. FAMILY HISTORY: Heart disease. SOCIAL HISTORY: Smoker for 40 years, quit 3 years ago. REVIEW OF SYSTEMS: Unable to obtain as she is on the ventilator. ALLERGIES: BUPROPION. MEDICATIONS: Reviewed, as listed in the MRAD, including antibiotics and DuoNeb. Lovenox for DVT prophylaxis. PHYSICAL EXAMINATION: GENERAL: She is awake on a CPAP trial, following commands. VITAL SIGNS: Reviewed. Pulse ox is 98%. HEENT: Sclerae nonicteric. NECK: Supple. LUNGS: With clear breath sounds, no wheezing. CARDIOVASCULAR: Regular rate. ABDOMEN: Soft. EXTREMITIES: With trace ankle edema. LABORATORY DATA: Chest x-ray was reviewed, as discussed above. Echocardiogram has been done, report is not available. Arterial blood gases reviewed on a CPAP trial with increasing hypercapnia. IMPRESSION: 1. [id number] hypercapnic respiratory failure secondary to acute exacerbation of chronic obstructive pulmonary disease. 2. 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 3. Acute toxic encephalopathy secondary to severe hypercarbia. 4. No definite consolidation seen on the chest x-ray with mildly prominent interstitial markings. 5. History of percutaneous coronary intervention. RECOMMENDATION: 1. Continue with present ventilator support. 2. We will follow her ABGs on CPAP trial. She is trending her pCO2 in the high direction. We will make sure that it is stable before we extubate her. I spoke with the patient, she states she does want to be reintubated if she is extubated. 3. Continue bronchodilators. 4. Continue antibiotics for now. 5. DVT prophylaxis. 6. Repeat ABGs in an hour and we will reassess her stability for extubation. She may need BiPAP post-extubation. 7. Discussed with RN and RT. Discussed with . Critical care time 39 minutes. PRERNA CALHOUN MD DR: MINGO/sarbjit JOB#: [id number] / [id number]
[2018-02-04 16:07] LABS: BASE EXCESS ABG 6 mmol/L (-3-3); HCO3 ABG 33 mmol/L (21-28); PO2 ABG 80 mmHg (65-108); SAT O2 ABG 94 % (92-99)
[2018-02-04 16:17] LABS: FIO2 ABG 35; PCO2 ABG 61 mmHg (35-46)
[2018-02-04] MEDS: fentaNYL PF VIAL 100 MCG/2 ML VIAL IV PRN (19:22)
[2018-02-04] MEDS: PRAMIPEXOLE 1 MG TABLET. PO SCH (20:31)
[2018-02-04] MEDS: ATORVASTATIN CALCIUM 40 MG TABLET. PO SCH (20:31)
[2018-02-05] VITALS (15 sets, daily range): BP systolic 96–127; BP diastolic 0–71
[2018-02-05] MEDS: PIPERACILLIN/TAZOBACTAM 3.375 GM in IV NORMAL SALINE 50ML 50 ML IV SCH ×4 (00:04→18:03)
[2018-02-05] MEDS: IV NORMAL SALINE 1000ML BAG 1,000 ML IV SCH (03:20)
[2018-02-05] MEDS: fentaNYL PF VIAL 100 MCG/2 ML VIAL IV PRN ×2 (03:20→19:24)
[2018-02-05 06:28] LABS: CALCIUM 8.3 mg/dL (8.5-10.1); CREATININE 0.7 mg/dL (0.6-1.0); GFR 84.8; POTASSIUM 3.5 mmol/L (3.5-5.1)
[2018-02-05 06:34] LABS: BASO % 0 % (0-3); EOS # 0.1 x10^3/uL (0.0-0.7); EOS % 1 % (0-3); HEMATOCRIT 29.7 % (36.0-47.0); HEMOGLOBIN 9.7 g/dL (12.0-15.5); LYMPH % 11 % (24-48); MEAN CORPUSCULAR HEMOGLOBIN 32 pg (25-35); MEAN CORPUSCULAR HGB CONC 33 g/dL (31-37); MEAN CORPUSCULAR VOLUME 98 fL (79-100); MONO % 10 % (0-9); NEUT # 7.3 x10^3uL (1.8-7.7); NEUT % 78 % (31-73); PLATELET COUNT 236 x10^3/uL (140-400); RED BLOOD COUNT 3.02 x10^6/uL (3.50-5.40); RED CELL DISTRIBUTION WIDTH 14.7 % (11.5-14.5); WHITE BLOOD COUNT 9.4 x10^3/uL (4.0-11.0)
[2018-02-05] MEDS: PANTOPRAZOLE IV PUSH 40 MG VIAL. IVP SCH (08:01)
[2018-02-05] MEDS: IPRATRPIUM/ALBUTEROL 0.5/2.5MG 3 ML NEBU. NEB SCH ×4 (08:21→19:36)
[2018-02-05] MEDS: ISOSORBIDE MONONITRATE ER 30 MG TAB.ER.24H PO SCH (09:00)
[2018-02-05] MEDS: FERROUS SULFATE 325 MG TABLET. PO SCH (09:34)
[2018-02-05] MEDS: CLOPIDOGREL BISULFATE 75 MG TABLET PO SCH (09:34)
[2018-02-05] MEDS: OMEGA-3 FATTY ACIDS/FISH OIL 1,000 MG CAPSULE. PO SCH ×2 (09:34→21:12)
[2018-02-05] MEDS: ASPIRIN ENTERIC COATED 81 MG TABLET.DR. PO SCH (09:34)
[2018-02-05] MEDS: LACTOBACILLUS RHAMNOSUS GG 1 CAPSULE. PO SCH ×2 (09:34→21:12)
[2018-02-05] MEDS: FOLIC ACID 1 MG TABLET. PO SCH (09:34)
[2018-02-05] MEDS ORDERED: POLYETHYLENE GLYCOL 3350 17 GM PACKET. PO PRN (11:15)
[2018-02-05] MEDS ORDERED: SENNOSIDES/DOCUSATE 8.6/50MG TABLET. PO PRN (11:15)
--- NOTE | 2018-02-05 12:11 | PDOC ---
PROGRESS NOTES Chief Complaint Chief Complaint Acute on chronic respiratory failure with underlying AECOPD/pulmonary HTN Suspect chronic diastolic CHF: No acute CHF. pro NT BNP at 92 Dyspnea due to severe COPD Hypotension: likely from sedation CAD: reactive sinus tach, no ectopies HTN HLD Hypoxic encephalopathy History of Present Illness History of Present Illness Pt seen and examined in ICU Pt sitting in chair on ventimask. Pt is eating. Family at bedside. Discussed with RN Discussed with pt and family. Vitals Vitals Vital Signs Date Time Temp Pulse Resp B/P (MAP) Pulse Ox O2 Delivery O2 Flow Rate FiO2 02/05/18 10:00 100 28 97/49 (65) 98 Venturi Mask 02/05/18 08:00 98.7 98.7 02/04/18 13:06 15.0 Physical Exam General: Alert, No acute distress, Other (intubated, but looking around) Heart: Regular rate (sinus tach), Other (distant heart sounds) Lungs: Clear, Other (on vent) Abdomen: Soft, No tenderness Extremities: No cyanosis, Other (1+ bilateral LE pitting edema) Skin: No breakdown, No significant lesion Labs LABS Laboratory Tests Test 02/04/18 16:00 02/05/18 05:25 O2 Saturation 94 % (92-99) Arterial Blood pH 7.35 (7.35-7.45) Arterial Blood pCO2 at Patient Temp 61 mmHg (35-46) Arterial Blood pO2 at Patient Temp 80 mmHg (65-108) Arterial Blood HCO3 33 mmol/L (21-28) Arterial Blood Base Excess 6 mmol/L (-3-3) FiO2 35 White Blood Count 9.4 x10^3/uL (4.0-11.0) Red Blood Count 3.02 x10^6/uL (3.50-5.40) Hemoglobin 9.7 g/dL (12.0-15.5) Hematocrit 29.7 % (36.0-47.0) Mean Corpuscular Volume 98 fL (79-100) Mean Corpuscular Hemoglobin 32 pg (25-35) Mean Corpuscular Hemoglobin Concent 33 g/dL (31-37) Red Cell Distribution Width 14.7 % (11.5-14.5) Platelet Count 236 x10^3/uL (140-400) Neutrophils (%) (Auto) 78 % (31-73) Lymphocytes (%) (Auto) 11 % (24-48) Monocytes (%) (Auto) 10 % (0-9) Eosinophils (%) (Auto) 1 % (0-3) Basophils (%) (Auto) 0 % (0-3) Neutrophils # (Auto) 7.3 x10^3uL (1.8-7.7) Lymphocytes # (Auto) 1.0 x10^3/uL (1.0-4.8) Monocytes # (Auto) 1.0 x10^3/uL (0.0-1.1) Eosinophils # (Auto) 0.1 x10^3/uL (0.0-0.7) Basophils # (Auto) 0.0 x10^3/uL (0.0-0.2) Sodium Level 148 mmol/L (136-145) Potassium Level 3.5 mmol/L (3.5-5.1) Chloride Level 109 mmol/L (98-107) Carbon Dioxide Level 35 mmol/L (21-32) Anion Gap 4 (6-14) Blood Urea Nitrogen 18 mg/dL (7-20) Creatinine 0.7 mg/dL (0.6-1.0) Estimated GFR (Cockcroft-Gault) 84.8 Glucose Level 101 mg/dL (70-99) Calcium Level 8.3 mg/dL (8.5-10.1) Review of Systems Review of Systems Pt denies CP and ZARAGOZA. Assessment and Plan Assessmemt and Plan Problems Medical Problems: (1) Respiratory failure Status: Acute Assessment: Acute on chronic respiratory failure with underlying AECOPD/pulmonary HTN Suspect chronic diastolic CHF: No acute CHF. pro NT BNP at 92 Dyspnea due to severe COPD Hypotension: likely from sedation CAD: reactive sinus tach, no ectopies HTN HLP Hypoxic encephalopathy Plan: ICU monitoring Off vent, now on ventimask Abx Monitor labs Breathing treatments Home meds DVT ppx Appreciate subspecialist input Comment Review of Relevant I have reviewed the following items afshin (where applicable) has been applied. Labs Laboratory Tests Test 02/03/18 17:00 02/03/18 17:25 02/03/18 18:16 02/03/18 20:15 White Blood Count 13.9 x10^3/uL (4.0-11.0) Red Blood Count 3.99 x10^6/uL (3.50-5.40) Hemoglobin 13.0 g/dL (12.0-15.5) Hematocrit 39.5 % (36.0-47.0) Mean Corpuscular Volume 99 fL (79-100) Mean Corpuscular Hemoglobin 33 pg (25-35) Mean Corpuscular Hemoglobin Concent 33 g/dL (31-37) Red Cell Distribution Width 14.5 % (11.5-14.5) Platelet Count 355 x10^3/uL (140-400) Neutrophils (%) (Auto) 82 % (31-73) Lymphocytes (%) (Auto) 8 % (24-48) Monocytes (%) (Auto) 10 % (0-9) Eosinophils (%) (Auto) 0 % (0-3) Basophils (%) (Auto) 0 % (0-3) Neutrophils # (Auto) 11.4 x10^3uL (1.8-7.7) Lymphocytes # (Auto) 1.1 x10^3/uL (1.0-4.8) Monocytes # (Auto) 1.3 x10^3/uL (0.0-1.1) Eosinophils # (Auto) 0.0 x10^3/uL (0.0-0.7) Basophils # (Auto) 0.0 x10^3/uL (0.0-0.2) Prothrombin Time 12.4 SEC (11.7-14.0) Prothromb Time International Ratio 1.0 (0.8-1.1) Activated Partial Thromboplast Time 25 SEC (24-38) Sodium Level 143 mmol/L (136-145) Potassium Level 4.2 mmol/L (3.5-5.1) Chloride Level 99 mmol/L (98-107) Carbon Dioxide Level > 45 mmol/L (21-32) Anion Gap (6-14) Blood Urea Nitrogen 21 mg/dL (7-20) Creatinine 0.7 mg/dL (0.6-1.0) Estimated GFR (Cockcroft-Gault) 84.8 BUN/Creatinine Ratio 30 (6-20) Glucose Level 159 mg/dL (70-99) Lactic Acid Level 0.7 mmol/L (0.4-2.0) Calcium Level 9.2 mg/dL (8.5-10.1) Total Bilirubin 0.3 mg/dL (0.2-1.0) Aspartate Amino Transf (AST/SGOT) 30 U/L (15-37) Alanine Aminotransferase (ALT/SGPT) 38 U/L (14-59) Alkaline Phosphatase 79 U/L (46-116) Troponin I Quantitative < 0.017 ng/mL (0.000-0.055) TR-Fkp-S-Type Natriuretic Peptide 92 pg/mL (0-124) Total Protein 7.2 g/dL (6.4-8.2) Albumin 3.5 g/dL (3.4-5.0) Albumin/Globulin Ratio 0.9 (1.0-1.7) Ethyl Alcohol Level < 10 mg/dL (0-10) O2 Saturation 96 % (92-99) Arterial Blood pH 7.04 (7.35-7.45) Arterial Blood pCO2 at Patient Temp > 155 mmHg (35-46) Arterial Blood pO2 at Patient Temp 125 mmHg (65-108) Arterial Blood HCO3 46 mmol/L (21-28) Arterial Blood Base Excess 9 mmol/L (-3-3) Oxyhemoglobin 94.8 % Methemoglobin 0.6 % (0.0-1.9) Carbon Monoxide, Quantitative 1.1 % (0.0-1.9) FiO2 100 Urine Collection Type Unknown Urine Color [place] Urine Clarity Clear Urine pH 5.5 Urine Specific [place] >=1.030 Urine Protein 100 mg/dL (NEG-TRACE) Urine Glucose (UA) Negative mg/dL (NEG) Urine Ketones (Stick) Negative mg/dL (NEG) Urine Blood Negative (NEG) Urine Nitrite Negative (NEG) Urine Bilirubin Small (NEG) Urine Urobilinogen Dipstick 1.0 mg/dL (0.2 mg/dL) Urine Leukocyte Esterase Negative (NEG) Urine RBC Occ /HPF (0-2) Urine WBC Rare /HPF (0-4) Urine Squamous Epithelial Cells Few /LPF Urine Bacteria 0 /HPF (0-FEW) Urine Mucus Slight /LPF Urine Opiates Screen Pos (NEG) Urine Methadone Screen Neg (NEG) Urine Barbiturates Neg (NEG) Urine Phencyclidine Screen Neg (NEG) Urine Amphetamine/Methamphetamine Neg (NEG) Urine Benzodiazepines Screen Neg (NEG) Urine Cocaine Screen Neg (NEG) Urine Cannabinoids Screen Neg (NEG) Urine Ethyl Alcohol Neg (NEG) Nasal Screen MRSA (PCR) Negative (Negative) Test 02/03/18 20:50 02/03/18 21:25 02/04/18 00:15 02/04/18 07:30 O2 Saturation 95 % (92-99) Arterial Blood pH 7.42 (7.35-7.45) Arterial Blood pCO2 at Patient Temp 58 mmHg (35-46) Arterial Blood pO2 at Patient Temp 73 mmHg (65-108) Arterial Blood HCO3 37 mmol/L (21-28) Arterial Blood Base Excess 11 mmol/L (-3-3) FiO2 50 Troponin I Quantitative 0.033 ng/mL (0.000-0.055) 0.030 ng/mL (0.000-0.055) White Blood Count 10.6 x10^3/uL (4.0-11.0) Red Blood Count 3.85 x10^6/uL (3.50-5.40) Hemoglobin 12.5 g/dL (12.0-15.5) Hematocrit 37.8 % (36.0-47.0) Mean Corpuscular Volume 98 fL (79-100) Mean Corpuscular Hemoglobin 33 pg (25-35) Mean Corpuscular Hemoglobin Concent 33 g/dL (31-37) Red Cell Distribution Width 14.7 % (11.5-14.5) Platelet Count 308 x10^3/uL (140-400) Neutrophils (%) (Auto) 67 % (31-73) Lymphocytes (%) (Auto) 20 % (24-48) Monocytes (%) (Auto) 12 % (0-9) Eosinophils (%) (Auto) 1 % (0-3) Basophils (%) (Auto) 1 % (0-3) Neutrophils # (Auto) 7.2 x10^3uL (1.8-7.7) Lymphocytes # (Auto) 2.1 x10^3/uL (1.0-4.8) Monocytes # (Auto) 1.3 x10^3/uL (0.0-1.1) Eosinophils # (Auto) 0.1 x10^3/uL (0.0-0.7) Basophils # (Auto) 0.1 x10^3/uL (0.0-0.2) Sodium Level 144 mmol/L (136-145) Potassium Level 4.0 mmol/L (3.5-5.1) Chloride Level 102 mmol/L (98-107) Carbon Dioxide Level 31 mmol/L (21-32) Anion Gap 11 (6-14) Blood Urea Nitrogen 22 mg/dL (7-20) Creatinine 0.9 mg/dL (0.6-1.0) Estimated GFR (Cockcroft-Gault) 63.4 BUN/Creatinine Ratio 24 (6-20) Glucose Level 116 mg/dL (70-99) Calcium Level 8.5 mg/dL (8.5-10.1) Total Bilirubin 0.6 mg/dL (0.2-1.0) Aspartate Amino Transf (AST/SGOT) 26 U/L (15-37) Alanine Aminotransferase (ALT/SGPT) 26 U/L (14-59) Alkaline Phosphatase 63 U/L (46-116) Total Protein 5.9 g/dL (6.4-8.2) Albumin 2.7 g/dL (3.4-5.0) Albumin/Globulin Ratio 0.8 (1.0-1.7) Test 02/04/18 08:30 02/04/18 09:50 02/04/18 11:40 02/04/18 16:00 O2 Saturation 96 % (92-99) 96 % (92-99) 95 % (92-99) 94 % (92-99) Arterial Blood pH 7.40 (7.35-7.45) 7.36 (7.35-7.45) 7.34 (7.35-7.45) 7.35 (7.35-7.45) Arterial Blood pCO2 at Patient Temp 55 mmHg (35-46) 65 mmHg (35-46) 70 mmHg (35-46) 61 mmHg (35-46) Arterial Blood pO2 at Patient Temp 90 mmHg (65-108) 89 mmHg (65-108) 86 mmHg (65-108) 80 mmHg (65-108) Arterial Blood HCO3 34 mmol/L (21-28) 36 mmol/L (21-28) 36 mmol/L (21-28) 33 mmol/L (21-28) Arterial Blood Base Excess 7 mmol/L (-3-3) 8 mmol/L (-3-3) 8 mmol/L (-3-3) 6 mmol/L (-3-3) FiO2 50 50 50 35 Test 02/05/18 05:25 White Blood Count 9.4 x10^3/uL (4.0-11.0) Red Blood Count 3.02 x10^6/uL (3.50-5.40) Hemoglobin 9.7 g/dL (12.0-15.5) Hematocrit 29.7 % (36.0-47.0) Mean Corpuscular Volume 98 fL (79-100) Mean Corpuscular Hemoglobin 32 pg (25-35) Mean Corpuscular Hemoglobin Concent 33 g/dL (31-37) Red Cell Distribution Width 14.7 % (11.5-14.5) Platelet Count 236 x10^3/uL (140-400) Neutrophils (%) (Auto) 78 % (31-73) Lymphocytes (%) (Auto) 11 % (24-48) Monocytes (%) (Auto) 10 % (0-9) Eosinophils (%) (Auto) 1 % (0-3) Basophils (%) (Auto) 0 % (0-3) Neutrophils # (Auto) 7.3 x10^3uL (1.8-7.7) Lymphocytes # (Auto) 1.0 x10^3/uL (1.0-4.8) Monocytes # (Auto) 1.0 x10^3/uL (0.0-1.1) Eosinophils # (Auto) 0.1 x10^3/uL (0.0-0.7) Basophils # (Auto) 0.0 x10^3/uL (0.0-0.2) Sodium Level 148 mmol/L (136-145) Potassium Level 3.5 mmol/L (3.5-5.1) Chloride Level 109 mmol/L (98-107) Carbon Dioxide Level 35 mmol/L (21-32) Anion Gap 4 (6-14) Blood Urea Nitrogen 18 mg/dL (7-20) Creatinine 0.7 mg/dL (0.6-1.0) Estimated GFR (Cockcroft-Gault) 84.8 Glucose Level 101 mg/dL (70-99) Calcium Level 8.3 mg/dL (8.5-10.1) Laboratory Tests Test 02/04/18 16:00 02/05/18 05:25 O2 Saturation 94 % (92-99) Arterial Blood pH 7.35 (7.35-7.45) Arterial Blood pCO2 at Patient Temp 61 mmHg (35-46) Arterial Blood pO2 at Patient Temp 80 mmHg (65-108) Arterial Blood HCO3 33 mmol/L (21-28) Arterial Blood Base Excess 6 mmol/L (-3-3) FiO2 35 White Blood Count 9.4 x10^3/uL (4.0-11.0) Red Blood Count 3.02 x10^6/uL (3.50-5.40) Hemoglobin 9.7 g/dL (12.0-15.5) Hematocrit 29.7 % (36.0-47.0) Mean Corpuscular Volume 98 fL (79-100) Mean Corpuscular Hemoglobin 32 pg (25-35) Mean Corpuscular Hemoglobin Concent 33 g/dL (31-37) Red Cell Distribution Width 14.7 % (11.5-14.5) Platelet Count 236 x10^3/uL (140-400) Neutrophils (%) (Auto) 78 % (31-73) Lymphocytes (%) (Auto) 11 % (24-48) Monocytes (%) (Auto) 10 % (0-9) Eosinophils (%) (Auto) 1 % (0-3) Basophils (%) (Auto) 0 % (0-3) Neutrophils # (Auto) 7.3 x10^3uL (1.8-7.7) Lymphocytes # (Auto) 1.0 x10^3/uL (1.0-4.8) Monocytes # (Auto) 1.0 x10^3/uL (0.0-1.1) Eosinophils # (Auto) 0.1 x10^3/uL (0.0-0.7) Basophils # (Auto) 0.0 x10^3/uL (0.0-0.2) Sodium Level 148 mmol/L (136-145) Potassium Level 3.5 mmol/L (3.5-5.1) Chloride Level 109 mmol/L (98-107) Carbon Dioxide Level 35 mmol/L (21-32) Anion Gap 4 (6-14) Blood Urea Nitrogen 18 mg/dL (7-20) Creatinine 0.7 mg/dL (0.6-1.0) Estimated GFR (Cockcroft-Gault) 84.8 Glucose Level 101 mg/dL (70-99) Calcium Level 8.3 mg/dL (8.5-10.1) Microbiology 02/03/18 Blood Culture - Preliminary, Resulted NO GROWTH AFTER 1 DAY Medications Current Medications Propofol 50 ml @ As Directed STK-MED ONCE IV ; Start 02/03/18 at 18:03; Stop 02/03/18 at 18:04; Status DC Albuterol/ Ipratropium (Duoneb) 3 ml STK-MED ONCE .ROUTE ; Start 02/03/18 at 18 :05; Stop 02/03/18 at 18:06; Status DC Albuterol/ Ipratropium (Duoneb) 3 ml 1X ONCE NEB Last administered on at 18:20; Start 02/03/18 at 18:30; Stop 02/03/18 at 18:31; Status DC Albuterol/ Ipratropium (Duoneb) 3 ml 1X ONCE NEB ; Start 02/03/18 at 18:30; Stop 02/03/18 at 18:31; Status UNV Fentanyl Citrate 30 ml @ 0 mls/hr CONT PRN IV PER PROTOCOL Last administered on 02/04/18at 05:11; Start 02/03/18 at 18:30 Propofol 100 ml @ 0 mls/hr CONT PRN IV PER PROTOCOL Last administered on at 03:47; Start 02/03/18 at 18:30 Fentanyl Citrate (Fentanyl 2ml Vial) 25 mcg PRN Q1HR PRN IV MILD PAIN AND/OR RASS +1 OR +2; Start 02/03/18 at 18:30 Fentanyl Citrate (Fentanyl 2ml Vial) 50 mcg PRN Q1HR PRN IV MOD TO SEVERE PAIN / RASS +3 +4 Last administered on 02/05/18at 03:20; Start 02/03/18 at 18:30 Chlorhexidine Gluconate (Peridex) 15 ml BID MM ; Start 02/03/18 at 21:00; Stop 02/04/18 at 07:43; Status DC Norepinephrine Bitartrate 250 ml @ As Directed STK-MED ONCE IV ; Start at 18:41; Stop 02/03/18 at 18:42; Status DC Sodium Chloride 500 ml @ 500 mls/hr 1X ONCE IV Last administered on at 18:30; Start 02/03/18 at 19:00; Stop 02/03/18 at 19:59; Status DC Norepinephrine Bitartrate 250 ml @ 1.875 mls/ hr 1X ONCE IV Last administered on 02/03/18at 18:55; Start 02/03/18 at 19:00; Stop 02/09/18 at 08: 19 Etomidate (Amidate) 20 mg 1X ONCE IV Last administered on 02/03/18at 17:58; Start 02/03/18 at 19:00; Stop 02/03/18 at 19:02; Status DC Etomidate (Amidate) 20 mg 1X ONCE IV Last administered on 02/03/18at 18:03; Start 02/03/18 at 19:00; Stop 02/03/18 at 19:04; Status DC Succinylcholine Chloride (Anectine) 120 mg 1X ONCE IV Last administered on at 18:03; Start 02/03/18 at 19:00; Stop 02/03/18 at 19:01; Status DC Sodium Chloride 500 ml @ 500 mls/hr 1X ONCE IV ; Start 02/03/18 at 19:00; Stop 02/03/18 at 19:59; Status UNV Albuterol Sulfate (Ventolin Neb Soln) 10 mg 1X ONCE CONT NEB Last administered on 02/03/18at 19:22; Start 02/03/18 at 19:15; Stop 02/03/18 at 19 :16; Status DC Albuterol Sulfate (Ventolin Neb Soln) 2.5 mg STK-MED ONCE .ROUTE ; Start at 19:14; Stop 02/03/18 at 19:15; Status DC Fentanyl Citrate (Fentanyl 2ml Vial) 100 mcg STK-MED ONCE .ROUTE ; Start at 22:34; Stop 02/03/18 at 22:35; Status DC Piperacillin Sod/ Tazobactam Sod (Zosyn Per Pharmacy) 1 each PRN DAILY PRN MC SEE COMMENTS; Start 02/03/18 at 23:15 Albuterol Sulfate (Ventolin Neb Soln) 2.5 mg PRN Q2HR PRN NEB SHORTNESS OF BREATH; Start 02/03/18 at 23:15 Aspirin (Ecotrin) 81 mg DAILY PO Last administered on 02/05/18 09:34; Start 02/04/18 at 09:00 Clopidogrel Bisulfate (Plavix) 75 mg DAILY PO Last administered on 02/05/18 09 :34; Start 02/04/18 at 09:00 Famotidine (Pepcid) 20 mg BID PO ; Start 02/04/18 at 09:00; Stop 02/04/18 at 09:00; Status DC Ferrous Sulfate (Feosol) 325 mg DAILY PO Last administered on 02/05/18 09:34; Start 02/04/18 at 09:00 Folic Acid (Folic Acid) 1 mg DAILY PO Last administered on 02/05/18 09:34; Start 02/04/18 at 09:00 Albuterol/ Ipratropium (Duoneb) 3 ml RTQID NEB Last administered on 02/05/18at 11:51; Start 02/04/18 at 08:00 Isosorbide Mononitrate (Imdur) 60 mg DAILY PO ; Start 02/04/18 at 09:00 Lactobacillus Rhamnosus (Culturelle) 1 cap BID PO Last administered on 09:34; Start 02/04/18 at 09:00 Fish Oil (Fish Oil) 1,000 mg BID PO Last administered on 02/05/18 09:34; Start 02/04/18 at 09:00 Non-Formulary Medication (Omeprazole Magnesium (Prilosec Otc)) 20 mg DAILY PO ; Start 02/04/18 at 09:00; Status UNV Atorvastatin Calcium (Lipitor) 80 mg QHS PO Last administered on 02/04/18at 20: 31; Start 02/04/18 at 21:00 Pantoprazole Sodium (PROTONIX VIAL for IV PUSH) 40 mg DAILYAC IVP Last administered on 02/05/18at 08:01; Start 02/04/18 at 07:30 Enoxaparin Sodium (Lovenox 40mg Syringe) 40 mg QHS SQ Last administered on at 20:32; Start 02/03/18 at 23:15 Pantoprazole Sodium (PROTONIX VIAL for IV PUSH) 40 mg 1X ONCE IVP ; Start at 00:00; Stop 02/03/18 at 00:01; Status Cancel Piperacillin Sod/ Tazobactam Sod 3.375 gm/Sodium Chloride 50 ml @ 100 mls/hr Q6HRS IV Last administered on 02/05/18at 05:48; Start 02/04/18 at 00:00 Sodium Chloride 1,000 ml @ 80 mls/hr [id number] IV Last administered on at 03:20; Start 02/03/18 at 23:45; Stop 02/05/18 at 11:12; Status DC Pantoprazole Sodium (PROTONIX VIAL for IV PUSH) 40 mg 1X ONCE IVP Last administered on 02/04/18at 00:44; Start 02/04/18 at 00:30; Stop 02/04/18 at 00 :31; Status DC Sodium Chloride 500 ml @ 500 mls/hr 1X ONCE IV Last administered on at 03:47; Start 02/04/18 at 03:30; Stop 02/04/18 at 04:29; Status DC Pramipexole Dihydrochloride (miraPEX) 0.5 mg QHS PO Last administered on at 20:31; Start 02/04/18 at 21:00 Senna/Docusate Sodium (Senna Plus) 1 tab PRN BID PRN PO CONSTIPATION 2ND CHOICE Last administered on 02/05/18at 11:46; Start 02/05/18 at 11:15 Polyethylene Glycol (miraLAX PACKET) 17 gm PRN DAILY PRN PO CONSTIPATION 1ST CHOICE Last administered on 02/05/18at 11:47; Start 02/05/18 at 11:15 Active Scripts Active Prednisone 20 Mg Tablet 40 Mg PO DAILY Albuterol Sulfate Neb Soln (Albuterol Sulfate) 2.5 Mg/3 Ml Vial.neb 2.5 Mg NEB PRN Q2HR PRN 30 Days Advair 250-50 Diskus (Fluticasone/Salmeterol) 1 Each Disk.w.dev 1 Puff IH BID Reported Atenolol 25 Mg Tablet 1 Tab PO DAILY Dicyclomine Hcl 10 Mg Capsule 1 Cap PO PRN Gabapentin 400 Mg Capsule 700 Mg PO DAILY Simethicone 80 Mg Tab.chew 80 Mg PO PRN Duoneb 0.5-3(2.5) Mg/3 Ml (Albuterol/Ipratropium) 3 Ml Ampul.neb 3 Ml NEB QID Mirapex (Pramipexole Di-Hcl) 0.25 Mg Tablet 0.5 Mg PO HS Ferrous Sulfate 325 Mg Tablet 325 Mg PO DAILY Multivitamins (Multivitamin) 1 Each Capsule 1 Each PO Folic Acid 1 Mg Tablet 1 Tab PO DAILY Isosorbide Mononitrate 20 Mg Tablet 60 Mg PO DAILY Probiotic (Lactobacillus Combo No.11) 1 Each Cap.sprink 1 Each PO DAILY Fish Oil ([place]are-3 Fatty Acids) 300 Mg Capsule 1,200 Mg PO BID Crestor (Rosuvastatin Calcium) 40 Mg Tablet 1 Tab PO DAILY Aspir 81 (Aspirin) 81 Mg Tablet.dr 1 Tab PO DAILY Plavix (Clopidogrel Bisulfate) 75 Mg Tablet 75 Mg PO DAILY Oxycodone Hcl 10 Mg Tablet 10 Mg PO PRN TID PRN Meloxicam 7.5 Mg Tablet 7.5 Mg PO DAILY Prilosec Otc (Omeprazole Magnesium) 20 Mg Tablet.dr 20 Mg PO DAILY Famotidine 20 Mg Tablet 20 Mg PO BID Vitals/I & O Vital Sign - Last 24 Hours 02/04/18 02/04/18 02/04/18 02/04/18 12:00 12:00 13:00 13:06 Temp 98.7 98.7 Pulse 131 128 Resp 24 10 B/P (MAP) 131/78 (95) 123/58 (79) Pulse Ox 94 94 O2 Delivery Venturi Mask Venturi Mask Venturi Mask Venturi Mask O2 Flow Rate 15.0 15.0 02/04/18 02/04/18 02/04/18 02/04/18 13:53 14:00 15:00 16:00 Temp 99.3 99.3 Pulse 130 114 114 Resp 30 34 20 B/P (MAP) 118/58 (78) 104/56 (72) 125/54 (77) Pulse Ox 97 93 100 100 O2 Delivery Venturi Mask BiPAP/CPAP BiPAP/CPAP 02/04/18 02/04/18 02/04/18 02/04/18 16:00 17:00 17:01 18:00 Pulse 110 122 Resp 23 25 B/P (MAP) 105/53 (70) 117/52 (73) Pulse Ox 100 97 98 O2 Delivery Bi-pap Venturi Mask BiPAP/CPAP 02/04/18 02/04/18 02/04/1802/04/18 19:00 19:22 20:00 20:00 Temp 98.8 98.8 Pulse 102 108 Resp B/P (MAP) 106/56 (73) 105/57 (73) Pulse Ox 100 100 97 O2 Delivery BiPAP/CPAP BiPAP/CPAP BiPAP/CPAP Bi-pap 02/04/18 02/04/18 02/04/18 02/04/18 20:01 21:00 22:00 23:00 Pulse 99 100 115 Resp 18 B/P (MAP) 106/52 (70) 99/44 (62) 121/56 (77) Pulse Ox 99 98 97 97 O2 Delivery BiPAP/CPAP BiPAP/CPAP BiPAP/CPAP 02/04/18 02/05/18 02/05/18 02/05/18 23:38 00:00 00:00 01:00 Temp 98.5 98.5 Pulse 112 110 Resp B/P (MAP) 116/56 (76) 111/54 (73) Pulse Ox 96 97 96 O2 Delivery BiPAP/CPAP Bi-pap BiPAP/CPAP 02/05/18 02/05/18 02/05/18 02/05/18 02:00 03:00 04:00 04:00 Temp 98.8 98.8 Pulse 108 110 101 Resp 25 B/P (MAP) 115/61 (79) 117/64 (81) 105/60 (75) Pulse Ox 98 94 99 O2 Delivery BiPAP/CPAP Venturi Mask Bi-pap BiPAP/CPAP 02/05/18 02/05/18 02/05/18 02/05/18 04:14 05:00 05:19 06:00 Pulse 96 98 Resp 22 B/P (MAP) 119/57 (77) 119/57 (77) Pulse Ox 99 96 96 98 O2 Delivery BiPAP/CPAP BiPAP/CPAP BiPAP/CPAP 02/05/18 02/05/18 02/05/18 02/05/18 07:00 08:00 08:00 08:21 Temp 98.7 98.7 Pulse 103 102 Resp B/P (MAP) 109/50 (69) 110/53 (72) Pulse Ox 98 98 96 O2 Delivery BiPAP/CPAP Bi-pap BiPAP/CPAP 02/05/18 02/05/18 02/05/18 09:00 09:00 10:00 Pulse 105 102 100 Resp 29 28 B/P (MAP) 99/47 99/47 (64) 97/49 (65) Pulse Ox 99 98 O2 Delivery Venturi Mask Venturi Mask Intake and Output 02/04/18 02/04/18 02/05/18 15:00 23:00 07:00 Intake Total 131.92 ml 1880.85 ml 929 ml Output Total 574 ml 210 ml 311 ml Balance -442.08 ml 1670.85 ml 618 ml GRACE DAVISON III DO Feb 05, 2018 12:11
--- NOTE | 2018-02-05 13:07 | PDOC ---
PULMONARY PROGRESS NOTES Subjective extubated 02/04 doing better Vitals Vital Signs Date Time Temp Pulse Resp B/P (MAP) Pulse Ox O2 Delivery O2 Flow Rate FiO2 02/05/18 12:00 98.7 98 26 103/55 (71) 98 Nasal Cannula 4.0 98.7 General: Alert, No acute distress Lungs: Other (decrease bases) Cardiovascular: S1, S2 Abdomen: Soft, Non-tender Neuro Exam: Alert Extremities: No Edema Skin: Warm Labs Laboratory Tests Test 02/03/18 17:00 02/03/18 17:25 02/03/18 18:16 02/03/18 20:15 White Blood Count 13.9 x10^3/uL (4.0-11.0) Red Blood Count 3.99 x10^6/uL (3.50-5.40) Hemoglobin 13.0 g/dL (12.0-15.5) Hematocrit 39.5 % (36.0-47.0) Mean Corpuscular Volume 99 fL (79-100) Mean Corpuscular Hemoglobin 33 pg (25-35) Mean Corpuscular Hemoglobin Concent 33 g/dL (31-37) Red Cell Distribution Width 14.5 % (11.5-14.5) Platelet Count 355 x10^3/uL (140-400) Neutrophils (%) (Auto) 82 % (31-73) Lymphocytes (%) (Auto) 8 % (24-48) Monocytes (%) (Auto) 10 % (0-9) Eosinophils (%) (Auto) 0 % (0-3) Basophils (%) (Auto) 0 % (0-3) Neutrophils # (Auto) 11.4 x10^3uL (1.8-7.7) Lymphocytes # (Auto) 1.1 x10^3/uL (1.0-4.8) Monocytes # (Auto) 1.3 x10^3/uL (0.0-1.1) Eosinophils # (Auto) 0.0 x10^3/uL (0.0-0.7) Basophils # (Auto) 0.0 x10^3/uL (0.0-0.2) Prothrombin Time 12.4 SEC (11.7-14.0) Prothromb Time International Ratio 1.0 (0.8-1.1) Activated Partial Thromboplast Time 25 SEC (24-38) Sodium Level 143 mmol/L (136-145) Potassium Level 4.2 mmol/L (3.5-5.1) Chloride Level 99 mmol/L (98-107) Carbon Dioxide Level > 45 mmol/L (21-32) Anion Gap (6-14) Blood Urea Nitrogen 21 mg/dL (7-20) Creatinine 0.7 mg/dL (0.6-1.0) Estimated GFR (Cockcroft-Gault) 84.8 BUN/Creatinine Ratio 30 (6-20) Glucose Level 159 mg/dL (70-99) Lactic Acid Level 0.7 mmol/L (0.4-2.0) Calcium Level 9.2 mg/dL (8.5-10.1) Total Bilirubin 0.3 mg/dL (0.2-1.0) Aspartate Amino Transf (AST/SGOT) 30 U/L (15-37) Alanine Aminotransferase (ALT/SGPT) 38 U/L (14-59) Alkaline Phosphatase 79 U/L (46-116) Troponin I Quantitative < 0.017 ng/mL (0.000-0.055) AD-Pxa-R-Type Natriuretic Peptide 92 pg/mL (0-124) Total Protein 7.2 g/dL (6.4-8.2) Albumin 3.5 g/dL (3.4-5.0) Albumin/Globulin Ratio 0.9 (1.0-1.7) Ethyl Alcohol Level < 10 mg/dL (0-10) O2 Saturation 96 % (92-99) Arterial Blood pH 7.04 (7.35-7.45) Arterial Blood pCO2 at Patient Temp > 155 mmHg (35-46) Arterial Blood pO2 at Patient Temp 125 mmHg (65-108) Arterial Blood HCO3 46 mmol/L (21-28) Arterial Blood Base Excess 9 mmol/L (-3-3) Oxyhemoglobin 94.8 % Methemoglobin 0.6 % (0.0-1.9) Carbon Monoxide, Quantitative 1.1 % (0.0-1.9) FiO2 100 Urine Collection Type Unknown Urine Color [place] Urine Clarity Clear Urine pH 5.5 Urine Specific [place] >=1.030 Urine Protein 100 mg/dL (NEG-TRACE) Urine Glucose (UA) Negative mg/dL (NEG) Urine Ketones (Stick) Negative mg/dL (NEG) Urine Blood Negative (NEG) Urine Nitrite Negative (NEG) Urine Bilirubin Small (NEG) Urine Urobilinogen Dipstick 1.0 mg/dL (0.2 mg/dL) Urine Leukocyte Esterase Negative (NEG) Urine RBC Occ /HPF (0-2) Urine WBC Rare /HPF (0-4) Urine Squamous Epithelial Cells Few /LPF Urine Bacteria 0 /HPF (0-FEW) Urine Mucus Slight /LPF Urine Opiates Screen Pos (NEG) Urine Methadone Screen Neg (NEG) Urine Barbiturates Neg (NEG) Urine Phencyclidine Screen Neg (NEG) Urine Amphetamine/Methamphetamine Neg (NEG) Urine Benzodiazepines Screen Neg (NEG) Urine Cocaine Screen Neg (NEG) Urine Cannabinoids Screen Neg (NEG) Urine Ethyl Alcohol Neg (NEG) Nasal Screen MRSA (PCR) Negative (Negative) Test 02/03/18 20:50 02/03/18 21:25 02/04/18 00:15 02/04/18 07:30 O2 Saturation 95 % (92-99) Arterial Blood pH 7.42 (7.35-7.45) Arterial Blood pCO2 at Patient Temp 58 mmHg (35-46) Arterial Blood pO2 at Patient Temp 73 mmHg (65-108) Arterial Blood HCO3 37 mmol/L (21-28) Arterial Blood Base Excess 11 mmol/L (-3-3) FiO2 50 Troponin I Quantitative 0.033 ng/mL (0.000-0.055) 0.030 ng/mL (0.000-0.055) White Blood Count 10.6 x10^3/uL (4.0-11.0) Red Blood Count 3.85 x10^6/uL (3.50-5.40) Hemoglobin 12.5 g/dL (12.0-15.5) Hematocrit 37.8 % (36.0-47.0) Mean Corpuscular Volume 98 fL (79-100) Mean Corpuscular Hemoglobin 33 pg (25-35) Mean Corpuscular Hemoglobin Concent 33 g/dL (31-37) Red Cell Distribution Width 14.7 % (11.5-14.5) Platelet Count 308 x10^3/uL (140-400) Neutrophils (%) (Auto) 67 % (31-73) Lymphocytes (%) (Auto) 20 % (24-48) Monocytes (%) (Auto) 12 % (0-9) Eosinophils (%) (Auto) 1 % (0-3) Basophils (%) (Auto) 1 % (0-3) Neutrophils # (Auto) 7.2 x10^3uL (1.8-7.7) Lymphocytes # (Auto) 2.1 x10^3/uL (1.0-4.8) Monocytes # (Auto) 1.3 x10^3/uL (0.0-1.1) Eosinophils # (Auto) 0.1 x10^3/uL (0.0-0.7) Basophils # (Auto) 0.1 x10^3/uL (0.0-0.2) Sodium Level 144 mmol/L (136-145) Potassium Level 4.0 mmol/L (3.5-5.1) Chloride Level 102 mmol/L (98-107) Carbon Dioxide Level 31 mmol/L (21-32) Anion Gap 11 (6-14) Blood Urea Nitrogen 22 mg/dL (7-20) Creatinine 0.9 mg/dL (0.6-1.0) Estimated GFR (Cockcroft-Gault) 63.4 BUN/Creatinine Ratio 24 (6-20) Glucose Level 116 mg/dL (70-99) Calcium Level 8.5 mg/dL (8.5-10.1) Total Bilirubin 0.6 mg/dL (0.2-1.0) Aspartate Amino Transf (AST/SGOT) 26 U/L (15-37) Alanine Aminotransferase (ALT/SGPT) 26 U/L (14-59) Alkaline Phosphatase 63 U/L (46-116) Total Protein 5.9 g/dL (6.4-8.2) Albumin 2.7 g/dL (3.4-5.0) Albumin/Globulin Ratio 0.8 (1.0-1.7) Test 02/04/18 08:30 02/04/18 09:50 02/04/18 11:40 02/04/18 16:00 O2 Saturation 96 % (92-99) 96 % (92-99) 95 % (92-99) 94 % (92-99) Arterial Blood pH 7.40 (7.35-7.45) 7.36 (7.35-7.45) 7.34 (7.35-7.45) 7.35 (7.35-7.45) Arterial Blood pCO2 at Patient Temp 55 mmHg (35-46) 65 mmHg (35-46) 70 mmHg (35-46) 61 mmHg (35-46) Arterial Blood pO2 at Patient Temp 90 mmHg (65-108) 89 mmHg (65-108) 86 mmHg (65-108) 80 mmHg (65-108) Arterial Blood HCO3 34 mmol/L (21-28) 36 mmol/L (21-28) 36 mmol/L (21-28) 33 mmol/L (21-28) Arterial Blood Base Excess 7 mmol/L (-3-3) 8 mmol/L (-3-3) 8 mmol/L (-3-3) 6 mmol/L (-3-3) FiO2 50 50 50 35 Test 02/05/18 05:25 White Blood Count 9.4 x10^3/uL (4.0-11.0) Red Blood Count 3.02 x10^6/uL (3.50-5.40) Hemoglobin 9.7 g/dL (12.0-15.5) Hematocrit 29.7 % (36.0-47.0) Mean Corpuscular Volume 98 fL (79-100) Mean Corpuscular Hemoglobin 32 pg (25-35) Mean Corpuscular Hemoglobin Concent 33 g/dL (31-37) Red Cell Distribution Width 14.7 % (11.5-14.5) Platelet Count 236 x10^3/uL (140-400) Neutrophils (%) (Auto) 78 % (31-73) Lymphocytes (%) (Auto) 11 % (24-48) Monocytes (%) (Auto) 10 % (0-9) Eosinophils (%) (Auto) 1 % (0-3) Basophils (%) (Auto) 0 % (0-3) Neutrophils # (Auto) 7.3 x10^3uL (1.8-7.7) Lymphocytes # (Auto) 1.0 x10^3/uL (1.0-4.8) Monocytes # (Auto) 1.0 x10^3/uL (0.0-1.1) Eosinophils # (Auto) 0.1 x10^3/uL (0.0-0.7) Basophils # (Auto) 0.0 x10^3/uL (0.0-0.2) Sodium Level 148 mmol/L (136-145) Potassium Level 3.5 mmol/L (3.5-5.1) Chloride Level 109 mmol/L (98-107) Carbon Dioxide Level 35 mmol/L (21-32) Anion Gap 4 (6-14) Blood Urea Nitrogen 18 mg/dL (7-20) Creatinine 0.7 mg/dL (0.6-1.0) Estimated GFR (Cockcroft-Gault) 84.8 Glucose Level 101 mg/dL (70-99) Calcium Level 8.3 mg/dL (8.5-10.1) Laboratory Tests Test 02/04/18 16:00 02/05/18 05:25 O2 Saturation 94 % (92-99) Arterial Blood pH 7.35 (7.35-7.45) Arterial Blood pCO2 at Patient Temp 61 mmHg (35-46) Arterial Blood pO2 at Patient Temp 80 mmHg (65-108) Arterial Blood HCO3 33 mmol/L (21-28) Arterial Blood Base Excess 6 mmol/L (-3-3) FiO2 35 White Blood Count 9.4 x10^3/uL (4.0-11.0) Red Blood Count 3.02 x10^6/uL (3.50-5.40) Hemoglobin 9.7 g/dL (12.0-15.5) Hematocrit 29.7 % (36.0-47.0) Mean Corpuscular Volume 98 fL (79-100) Mean Corpuscular Hemoglobin 32 pg (25-35) Mean Corpuscular Hemoglobin Concent 33 g/dL (31-37) Red Cell Distribution Width 14.7 % (11.5-14.5) Platelet Count 236 x10^3/uL (140-400) Neutrophils (%) (Auto) 78 % (31-73) Lymphocytes (%) (Auto) 11 % (24-48) Monocytes (%) (Auto) 10 % (0-9) Eosinophils (%) (Auto) 1 % (0-3) Basophils (%) (Auto) 0 % (0-3) Neutrophils # (Auto) 7.3 x10^3uL (1.8-7.7) Lymphocytes # (Auto) 1.0 x10^3/uL (1.0-4.8) Monocytes # (Auto) 1.0 x10^3/uL (0.0-1.1) Eosinophils # (Auto) 0.1 x10^3/uL (0.0-0.7) Basophils # (Auto) 0.0 x10^3/uL (0.0-0.2) Sodium Level 148 mmol/L (136-145) Potassium Level 3.5 mmol/L (3.5-5.1) Chloride Level 109 mmol/L (98-107) Carbon Dioxide Level 35 mmol/L (21-32) Anion Gap 4 (6-14) Blood Urea Nitrogen 18 mg/dL (7-20) Creatinine 0.7 mg/dL (0.6-1.0) Estimated GFR (Cockcroft-Gault) 84.8 Glucose Level 101 mg/dL (70-99) Calcium Level 8.3 mg/dL (8.5-10.1) Medications Active Scripts Medications Dose Route/Sig Max Daily Dose Days Date Category Prednisone 20 Mg Tablet 40 Mg PO DAILY 02/11/17 Rx Albuterol Sulfate Neb Soln (Albuterol Sulfate) 2.5 Mg/3 Ml Vial.neb 2.5 Mg NEB PRN Q2HR PRN 30 02/11/17 Rx Advair 250-50 Diskus (Fluticasone/Salmeterol) 1 Each Disk.w.dev 1 Puff IH BID 02/11/17 Rx Atenolol 25 Mg Tablet 1 Tab PO DAILY 02/10/17 Reported Dicyclomine Hcl 10 Mg Capsule 1 Cap PO PRN 02/09/17 Reported Gabapentin 400 Mg Capsule 700 Mg PO DAILY 02/09/17 Reported Simethicone 80 Mg Tab.chew 80 Mg PO PRN 02/09/17 Reported Duoneb 0.5-3(2.5) Mg/3 Ml (Albuterol/Ipratropium) 3 Ml Ampul.neb 3 Ml NEB QID 02/09/17 Reported Mirapex (Pramipexole Di-Hcl) 0.25 Mg Tablet 0.5 Mg PO HS 02/09/17 Reported Ferrous Sulfate 325 Mg Tablet 325 Mg PO DAILY 12/04/16 Reported Multivitamins (Multivitamin) 1 Each Capsule 1 Each PO 05/30/16 Reported Folic Acid 1 Mg Tablet 1 Tab PO DAILY 05/30/16 Reported Isosorbide Mononitrate 20 Mg Tablet 60 Mg PO DAILY 05/30/16 Reported Probiotic (Lactobacillus Combo No.11) 1 Each Cap.sprink 1 Each PO DAILY 05/30/16 Reported Fish Oil ([place]-3 Fatty Acids) 300 Mg Capsule 1,200 Mg PO BID 05/30/16 Reported Crestor (Rosuvastatin Calcium) 40 Mg Tablet 1 Tab PO DAILY 05/30/16 Reported Aspir 81 (Aspirin) 81 Mg Tablet.dr 1 Tab PO DAILY 05/30/16 Reported Plavix (Clopidogrel Bisulfate) 75 Mg Tablet 75 Mg PO DAILY 02/28/16 Reported Oxycodone Hcl 10 Mg Tablet 10 Mg PO PRN TID PRN 02/28/16 Reported Meloxicam 7.5 Mg Tablet 7.5 Mg PO DAILY 02/28/16 Reported Prilosec Otc (Omeprazole Magnesium) 20 Mg Tablet.dr 20 Mg PO DAILY 02/28/16 Reported Famotidine 20 Mg Tablet 20 Mg PO BID 02/28/16 Reported Impression . 1. [id number] hypercapnic respiratory failure secondary to acute exacerbation of chronic obstructive pulmonary disease. extubated 02/05 2. 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 3. Acute toxic encephalopathy secondary to severe hypercarbia. 4. No definite consolidation seen on the chest x-ray with mildly prominent interstitial markings. 5. History of percutaneous coronary intervention. Plan . 1. Continue with VM. BIPAP qhs and prn 2. ABGs improved 3. Continue bronchodilators. 4. Continue antibiotics for now. 5. DVT prophylaxis. 6. oral nutrition 7. Discussed with RN /. 8. transfer to floor 9. d/w patient advance directives again. 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
[2018-02-05] MEDS: oxyCODONE IR 5 MG TABLET PO PRN ×2 (13:15→21:13)
[2018-02-05] MEDS: ATORVASTATIN CALCIUM 40 MG TABLET. PO SCH (21:11)
[2018-02-05] MEDS: ENOXAPARIN 40 MG/0.4 ML SYRINGE. SQ SCH (21:13)
[2018-02-05] MEDS: PRAMIPEXOLE 1 MG TABLET. PO SCH (21:17)
[2018-02-06] VITALS (7 sets, daily range): BP systolic 109–134; BP diastolic 48–69
[2018-02-06] MEDS: PIPERACILLIN/TAZOBACTAM 3.375 GM in IV NORMAL SALINE 50ML 50 ML IV SCH ×2 (00:05→05:15)
[2018-02-06] MEDS: PANTOPRAZOLE IV PUSH 40 MG VIAL. IVP SCH (05:19)
[2018-02-06 05:26] LABS: BASO % 0 % (0-3); EOS # 0.1 x10^3/uL (0.0-0.7); EOS % 2 % (0-3); HEMATOCRIT 29.2 % (36.0-47.0); HEMOGLOBIN 9.8 g/dL (12.0-15.5); LYMPH # 1.1 x10^3/uL (1.0-4.8); LYMPH % 17 % (24-48); MEAN CORPUSCULAR HEMOGLOBIN 33 pg (25-35); MEAN CORPUSCULAR HGB CONC 34 g/dL (31-37); MEAN CORPUSCULAR VOLUME 98 fL (79-100); MONO # 0.6 x10^3/uL (0.0-1.1); MONO % 9 % (0-9); NEUT # 4.9 x10^3uL (1.8-7.7); NEUT % 72 % (31-73); PLATELET COUNT 248 x10^3/uL (140-400); RED BLOOD COUNT 2.98 x10^6/uL (3.50-5.40); RED CELL DISTRIBUTION WIDTH 14.4 % (11.5-14.5); WHITE BLOOD COUNT 6.8 x10^3/uL (4.0-11.0)
[2018-02-06] MEDS: oxyCODONE IR 5 MG TABLET PO PRN ×3 (05:38→21:08)
[2018-02-06 05:48] LABS: CALCIUM 8.4 mg/dL (8.5-10.1); CREATININE 0.7 mg/dL (0.6-1.0); GFR 84.8; POTASSIUM 3.3 mmol/L (3.5-5.1)
[2018-02-06] MEDS: IPRATRPIUM/ALBUTEROL 0.5/2.5MG 3 ML NEBU. NEB SCH ×4 (07:10→19:55)
--- NOTE | 2018-02-06 08:12 | PDOC ---
PROGRESS NOTES Chief Complaint Chief Complaint Acute on chronic respiratory failure with underlying AECOPD/pulmonary HTN Suspect chronic diastolic CHF: No acute CHF. pro NT BNP at 92 Dyspnea due to severe COPD Hypotension: likely from sedation CAD: reactive sinus tach, no ectopies HTN HLD Hypercapnic encephalopathy History of Present Illness History of Present Illness Pt admitted with acute respiratory failure hypoxica and hypercapnic, extubated on 02/04/18, bridged to BIPAP, transferred from ICU yesterday. Seen on the floor. Used BIPAP overnight well and is seen on ventimask with nebulizer treatments today. Potassium low, replaced. She has had BM, states her memory is not so great. She is still short of breath, denies CP. No family at bedside. Discussed with RN A/P: Acute on chronic respiratory failure with underlying AECOPD/pulmonary HTN - seen by pulm, cont BIPAP, can change antibiotics to oral today Suspect chronic diastolic CHF - though BNP 92. Dyspnea due to severe COPD - prn BIPAP, nebs, O2 Hypotension: likely from sedation, improved today CAD: reactive sinus tach, no ectopies - stable on telemetry HTN - meds held for hypotension HLD - stable Hypercapnic encephalopathy - improving, she may have an underlying memory disorder FEN - Cardiac diet PPX - heparin FULL CODE Inpatient for another 1-2 days for recovery and discharge planning. See how she tolerates oral antibiotics Vitals Vitals Vital Signs Date Time Temp Pulse Resp B/P (MAP) Pulse Ox O2 Delivery O2 Flow Rate FiO2 02/06/18 07:10 96 02/06/18 05:38 22 BiPAP/CPAP 02/06/18 03:00 97.7 98 130/69 (89) 4.0 97.7 Physical Exam General: Alert, No acute distress, Other (intubated, but looking around) Heart: Regular rate (sinus tach), Other (distant heart sounds) Lungs: Other (decrease bases) Abdomen: Soft, No tenderness Extremities: No cyanosis, Other (1+ bilateral LE pitting edema) Skin: No breakdown, No significant lesion Labs LABS Laboratory Tests Test 02/06/18 04:20 White Blood Count 6.8 x10^3/uL (4.0-11.0) Red Blood Count 2.98 x10^6/uL (3.50-5.40) Hemoglobin 9.8 g/dL (12.0-15.5) Hematocrit 29.2 % (36.0-47.0) Mean Corpuscular Volume 98 fL (79-100) Mean Corpuscular Hemoglobin 33 pg (25-35) Mean Corpuscular Hemoglobin Concent 34 g/dL (31-37) Red Cell Distribution Width 14.4 % (11.5-14.5) Platelet Count 248 x10^3/uL (140-400) Neutrophils (%) (Auto) 72 % (31-73) Lymphocytes (%) (Auto) 17 % (24-48) Monocytes (%) (Auto) 9 % (0-9) Eosinophils (%) (Auto) 2 % (0-3) Basophils (%) (Auto) 0 % (0-3) Neutrophils # (Auto) 4.9 x10^3uL (1.8-7.7) Lymphocytes # (Auto) 1.1 x10^3/uL (1.0-4.8) Monocytes # (Auto) 0.6 x10^3/uL (0.0-1.1) Eosinophils # (Auto) 0.1 x10^3/uL (0.0-0.7) Basophils # (Auto) 0.0 x10^3/uL (0.0-0.2) Sodium Level 148 mmol/L (136-145) Potassium Level 3.3 mmol/L (3.5-5.1) Chloride Level 109 mmol/L (98-107) Carbon Dioxide Level 35 mmol/L (21-32) Anion Gap 4 (6-14) Blood Urea Nitrogen 14 mg/dL (7-20) Creatinine 0.7 mg/dL (0.6-1.0) Estimated GFR (Cockcroft-Gault) 84.8 Glucose Level 93 mg/dL (70-99) Calcium Level 8.4 mg/dL (8.5-10.1) Assessment and Plan Assessmemt and Plan Problems Medical Problems: (1) Respiratory failure Status: Acute Comment Review of Relevant I have reviewed the following items afshin (where applicable) has been applied. Labs Laboratory Tests Test 02/04/18 08:30 02/04/18 09:50 02/04/18 11:40 02/04/18 16:00 O2 Saturation 96 % (92-99) 96 % (92-99) 95 % (92-99) 94 % (92-99) Arterial Blood pH 7.40 (7.35-7.45) 7.36 (7.35-7.45) 7.34 (7.35-7.45) 7.35 (7.35-7.45) Arterial Blood pCO2 at Patient Temp 55 mmHg (35-46) 65 mmHg (35-46) 70 mmHg (35-46) 61 mmHg (35-46) Arterial Blood pO2 at Patient Temp 90 mmHg (65-108) 89 mmHg (65-108) 86 mmHg (65-108) 80 mmHg (65-108) Arterial Blood HCO3 34 mmol/L (21-28) 36 mmol/L (21-28) 36 mmol/L (21-28) 33 mmol/L (21-28) Arterial Blood Base Excess 7 mmol/L (-3-3) 8 mmol/L (-3-3) 8 mmol/L (-3-3) 6 mmol/L (-3-3) FiO2 50 50 50 35 Test 02/05/18 05:25 02/06/18 04:20 White Blood Count 9.4 x10^3/uL (4.0-11.0) 6.8 x10^3/uL (4.0-11.0) Red Blood Count 3.02 x10^6/uL (3.50-5.40) 2.98 x10^6/uL (3.50-5.40) Hemoglobin 9.7 g/dL (12.0-15.5) 9.8 g/dL (12.0-15.5) Hematocrit 29.7 % (36.0-47.0) 29.2 % (36.0-47.0) Mean Corpuscular Volume 98 fL (79-100) 98 fL (79-100) Mean Corpuscular Hemoglobin 32 pg (25-35) 33 pg (25-35) Mean Corpuscular Hemoglobin Concent 33 g/dL (31-37) 34 g/dL (31-37) Red Cell Distribution Width 14.7 % (11.5-14.5) 14.4 % (11.5-14.5) Platelet Count 236 x10^3/uL (140-400) 248 x10^3/uL (140-400) Neutrophils (%) (Auto) 78 % (31-73) 72 % (31-73) Lymphocytes (%) (Auto) 11 % (24-48) 17 % (24-48) Monocytes (%) (Auto) 10 % (0-9) 9 % (0-9) Eosinophils (%) (Auto) 1 % (0-3) 2 % (0-3) Basophils (%) (Auto) 0 % (0-3) 0 % (0-3) Neutrophils # (Auto) 7.3 x10^3uL (1.8-7.7) 4.9 x10^3uL (1.8-7.7) Lymphocytes # (Auto) 1.0 x10^3/uL (1.0-4.8) 1.1 x10^3/uL (1.0-4.8) Monocytes # (Auto) 1.0 x10^3/uL (0.0-1.1) 0.6 x10^3/uL (0.0-1.1) Eosinophils # (Auto) 0.1 x10^3/uL (0.0-0.7) 0.1 x10^3/uL (0.0-0.7) Basophils # (Auto) 0.0 x10^3/uL (0.0-0.2) 0.0 x10^3/uL (0.0-0.2) Sodium Level 148 mmol/L (136-145) 148 mmol/L (136-145) Potassium Level 3.5 mmol/L (3.5-5.1) 3.3 mmol/L (3.5-5.1) Chloride Level 109 mmol/L (98-107) 109 mmol/L (98-107) Carbon Dioxide Level 35 mmol/L (21-32) 35 mmol/L (21-32) Anion Gap 4 (6-14) 4 (6-14) Blood Urea Nitrogen 18 mg/dL (7-20) 14 mg/dL (7-20) Creatinine 0.7 mg/dL (0.6-1.0) 0.7 mg/dL (0.6-1.0) Estimated GFR (Cockcroft-Gault) 84.8 84.8 Glucose Level 101 mg/dL (70-99) 93 mg/dL (70-99) Calcium Level 8.3 mg/dL (8.5-10.1) 8.4 mg/dL (8.5-10.1) Laboratory Tests Test 02/06/18 04:20 White Blood Count 6.8 x10^3/uL (4.0-11.0) Red Blood Count 2.98 x10^6/uL (3.50-5.40) Hemoglobin 9.8 g/dL (12.0-15.5) Hematocrit 29.2 % (36.0-47.0) Mean Corpuscular Volume 98 fL (79-100) Mean Corpuscular Hemoglobin 33 pg (25-35) Mean Corpuscular Hemoglobin Concent 34 g/dL (31-37) Red Cell Distribution Width 14.4 % (11.5-14.5) Platelet Count 248 x10^3/uL (140-400) Neutrophils (%) (Auto) 72 % (31-73) Lymphocytes (%) (Auto) 17 % (24-48) Monocytes (%) (Auto) 9 % (0-9) Eosinophils (%) (Auto) 2 % (0-3) Basophils (%) (Auto) 0 % (0-3) Neutrophils # (Auto) 4.9 x10^3uL (1.8-7.7) Lymphocytes # (Auto) 1.1 x10^3/uL (1.0-4.8) Monocytes # (Auto) 0.6 x10^3/uL (0.0-1.1) Eosinophils # (Auto) 0.1 x10^3/uL (0.0-0.7) Basophils # (Auto) 0.0 x10^3/uL (0.0-0.2) Sodium Level 148 mmol/L (136-145) Potassium Level 3.3 mmol/L (3.5-5.1) Chloride Level 109 mmol/L (98-107) Carbon Dioxide Level 35 mmol/L (21-32) Anion Gap 4 (6-14) Blood Urea Nitrogen 14 mg/dL (7-20) Creatinine 0.7 mg/dL (0.6-1.0) Estimated GFR (Cockcroft-Gault) 84.8 Glucose Level 93 mg/dL (70-99) Calcium Level 8.4 mg/dL (8.5-10.1) Microbiology 02/03/18 Blood Culture - Preliminary, Resulted NO GROWTH AFTER 2 DAYS Medications Current Medications Propofol 50 ml @ As Directed STK-MED ONCE IV ; Start 02/03/18 at 18:03; Stop 02/03/18 at 18:04; Status DC Albuterol/ Ipratropium (Duoneb) 3 ml STK-MED ONCE .ROUTE ; Start 02/03/18 at 18 :05; Stop 02/03/18 at 18:06; Status DC Albuterol/ Ipratropium (Duoneb) 3 ml 1X ONCE NEB Last administered on at 18:20; Start 02/03/18 at 18:30; Stop 02/03/18 at 18:31; Status DC Albuterol/ Ipratropium (Duoneb) 3 ml 1X ONCE NEB ; Start 02/03/18 at 18:30; Stop 02/03/18 at 18:31; Status UNV Fentanyl Citrate 30 ml @ 0 mls/hr CONT PRN IV PER PROTOCOL Last administered on 02/04/18at 05:11; Start 02/03/18 at 18:30 Propofol 100 ml @ 0 mls/hr CONT PRN IV PER PROTOCOL Last administered on at 03:47; Start 02/03/18 at 18:30 Fentanyl Citrate (Fentanyl 2ml Vial) 25 mcg PRN Q1HR PRN IV MILD PAIN AND/OR RASS +1 OR +2; Start 02/03/18 at 18:30 Fentanyl Citrate (Fentanyl 2ml Vial) 50 mcg PRN Q1HR PRN IV MOD TO SEVERE PAIN / RASS +3 +4 Last administered on 02/05/18at 19:24; Start 02/03/18 at 18:30 Chlorhexidine Gluconate (Peridex) 15 ml BID MM ; Start 02/03/18 at 21:00; Stop 02/04/18 at 07:43; Status DC Norepinephrine Bitartrate 250 ml @ As Directed STK-MED ONCE IV ; Start at 18:41; Stop 02/03/18 at 18:42; Status DC Sodium Chloride 500 ml @ 500 mls/hr 1X ONCE IV Last administered on at 18:30; Start 02/03/18 at 19:00; Stop 02/03/18 at 19:59; Status DC Norepinephrine Bitartrate 250 ml @ 1.875 mls/ hr 1X ONCE IV Last administered on 02/03/18at 18:55; Start 02/03/18 at 19:00; Stop 02/09/18 at 08: 19 Etomidate (Amidate) 20 mg 1X ONCE IV Last administered on 02/03/18at 17:58; Start 02/03/18 at 19:00; Stop 02/03/18 at 19:02; Status DC Etomidate (Amidate) 20 mg 1X ONCE IV Last administered on 02/03/18at 18:03; Start 02/03/18 at 19:00; Stop 02/03/18 at 19:04; Status DC Succinylcholine Chloride (Anectine) 120 mg 1X ONCE IV Last administered on at 18:03; Start 02/03/18 at 19:00; Stop 02/03/18 at 19:01; Status DC Sodium Chloride 500 ml @ 500 mls/hr 1X ONCE IV ; Start 02/03/18 at 19:00; Stop 02/03/18 at 19:59; Status UNV Albuterol Sulfate (Ventolin Neb Soln) 10 mg 1X ONCE CONT NEB Last administered on 02/03/18at 19:22; Start 02/03/18 at 19:15; Stop 02/03/18 at 19 :16; Status DC Albuterol Sulfate (Ventolin Neb Soln) 2.5 mg STK-MED ONCE .ROUTE ; Start at 19:14; Stop 02/03/18 at 19:15; Status DC Fentanyl Citrate (Fentanyl 2ml Vial) 100 mcg STK-MED ONCE .ROUTE ; Start at 22:34; Stop 02/03/18 at 22:35; Status DC Piperacillin Sod/ Tazobactam Sod (Zosyn Per Pharmacy) 1 each PRN DAILY PRN MC SEE COMMENTS; Start 02/03/18 at 23:15 Albuterol Sulfate (Ventolin Neb Soln) 2.5 mg PRN Q2HR PRN NEB SHORTNESS OF BREATH; Start 02/03/18 at 23:15 Aspirin (Ecotrin) 81 mg DAILY PO Last administered on 02/05/18at 09:34; Start 02/04/18 at 09:00 Clopidogrel Bisulfate (Plavix) 75 mg DAILY PO Last administered on 02/05/18at 09 :34; Start 02/04/18 at 09:00 Famotidine (Pepcid) 20 mg BID PO ; Start 02/04/18 at 09:00; Stop 02/04/18 at 09:00; Status DC Ferrous Sulfate (Feosol) 325 mg DAILY PO Last administered on 02/05/18at 09:34; Start 02/04/18 at 09:00 Folic Acid (Folic Acid) 1 mg DAILY PO Last administered on 02/05/18at 09:34; Start 02/04/18 at 09:00 Albuterol/ Ipratropium (Duoneb) 3 ml RTQID NEB Last administered on 02/06/18at 07:10; Start 02/04/18 at 08:00 Isosorbide Mononitrate (Imdur) 60 mg DAILY PO ; Start 02/04/18 at 09:00 Lactobacillus Rhamnosus (Culturelle) 1 cap BID PO Last administered on at 21:12; Start 02/04/18 at 09:00 Fish Oil (Fish Oil) 1,000 mg BID PO Last administered on 02/05/18at 21:12; Start 02/04/18 at 09:00 Non-Formulary Medication (Omeprazole Magnesium (Prilosec Otc)) 20 mg DAILY PO ; Start 02/04/18 at 09:00; Status UNV Atorvastatin Calcium (Lipitor) 80 mg QHS PO Last administered on 02/05/18at 21: 11; Start 02/04/18 at 21:00 Pantoprazole Sodium (PROTONIX VIAL for IV PUSH) 40 mg DAILYAC IVP Last administered on 02/06/18at 05:19; Start 02/04/18 at 07:30 Enoxaparin Sodium (Lovenox 40mg Syringe) 40 mg QHS SQ Last administered on 02/05at 21:13; Start 02/03/18 at 23:15 Pantoprazole Sodium (PROTONIX VIAL for IV PUSH) 40 mg 1X ONCE IVP ; Start at 00:00; Stop 02/03/18 at 00:01; Status Cancel Piperacillin Sod/ Tazobactam Sod 3.375 gm/Sodium Chloride 50 ml @ 100 mls/hr Q6HRS IV Last administered on 02/06/18at 05:15; Start 02/04/18 at 00:00 Sodium Chloride 1,000 ml @ 80 mls/hr [id number] IV Last administered on at 03:20; Start 02/03/18 at 23:45; Stop 02/05/18 at 11:12; Status DC Pantoprazole Sodium (PROTONIX VIAL for IV PUSH) 40 mg 1X ONCE IVP Last administered on 02/04/18at 00:44; Start 02/04/18 at 00:30; Stop 02/04/18 at 00 :31; Status DC Sodium Chloride 500 ml @ 500 mls/hr 1X ONCE IV Last administered on at 03:47; Start 02/04/18 at 03:30; Stop 02/04/18 at 04:29; Status DC Pramipexole Dihydrochloride (miraPEX) 0.5 mg QHS PO Last administered on at 21:17; Start 02/04/18 at 21:00 Senna/Docusate Sodium (Senna Plus) 1 tab PRN BID PRN PO CONSTIPATION 2ND CHOICE Last administered on 02/05/18at 11:46; Start 02/05/18 at 11:15 Polyethylene Glycol (miraLAX PACKET) 17 gm PRN DAILY PRN PO CONSTIPATION 1ST CHOICE Last administered on 02/05/18at 11:47; Start 02/05/18 at 11:15 Oxycodone HCl (Roxicodone) 10 mg TID PRN PRN PO PAIN Last administered on at 05:38; Start 02/05/18 at 13:00 Active Scripts Active Prednisone 20 Mg Tablet 40 Mg PO DAILY Albuterol Sulfate Neb Soln (Albuterol Sulfate) 2.5 Mg/3 Ml Vial.neb 2.5 Mg NEB PRN Q2HR PRN 30 Days Advair 250-50 Diskus (Fluticasone/Salmeterol) 1 Each Disk.w.dev 1 Puff IH BID Reported Atenolol 25 Mg Tablet 1 Tab PO DAILY Dicyclomine Hcl 10 Mg Capsule 1 Cap PO PRN Gabapentin 400 Mg Capsule 700 Mg PO DAILY Simethicone 80 Mg Tab.chew 80 Mg PO PRN Duoneb 0.5-3(2.5) Mg/3 Ml (Albuterol/Ipratropium) 3 Ml Ampul.neb 3 Ml NEB QID Mirapex (Pramipexole Di-Hcl) 0.25 Mg Tablet 0.5 Mg PO HS Ferrous Sulfate 325 Mg Tablet 325 Mg PO DAILY Multivitamins (Multivitamin) 1 Each Capsule 1 Each PO Folic Acid 1 Mg Tablet 1 Tab PO DAILY Isosorbide Mononitrate 20 Mg Tablet 60 Mg PO DAILY Probiotic (Lactobacillus Combo No.11) 1 Each Cap.sprink 1 Each PO DAILY Fish Oil ([place]-3 Fatty Acids) 300 Mg Capsule 1,200 Mg PO BID Crestor (Rosuvastatin Calcium) 40 Mg Tablet 1 Tab PO DAILY Aspir 81 (Aspirin) 81 Mg Tablet.dr 1 Tab PO DAILY Plavix (Clopidogrel Bisulfate) 75 Mg Tablet 75 Mg PO DAILY Oxycodone Hcl 10 Mg Tablet 10 Mg PO PRN TID PRN Meloxicam 7.5 Mg Tablet 7.5 Mg PO DAILY Prilosec Otc (Omeprazole Magnesium) 20 Mg Tablet.dr 20 Mg PO DAILY Famotidine 20 Mg Tablet 20 Mg PO BID Vitals/I & O Vital Sign - Last 24 Hours 02/05/18 02/05/18 02/05/18 02/05/18 08:21 09:00 09:00 10:00 Pulse 105 102 100 Resp 29 28 B/P (MAP) 99/47 99/47 (64) 97/49 (65) Pulse Ox 96 99 98 O2 Delivery Venturi Mask Venturi Mask 02/05/18 02/05/18 02/05/18 02/05/18 11:56 12:00 13:15 16:00 Temp 98.7 98.7 Pulse 98 Resp 26 13 B/P (MAP) 103/55 (71) Pulse Ox 96 98 92 96 O2 Delivery Nasal Cannula Nasal Cannula Nasal Cannula Nasal Cannula O2 Flow Rate 4.0 4.0 4.0 4.0 02/05/18 02/05/18 02/05/18 02/05/18 16:00 19:24 19:36 19:39 Pulse 121 Resp 23 18 B/P (MAP) 122/58 (79) Pulse Ox 92 93 94 O2 Delivery Nasal Cannula Nasal Cannula Nasal Cannula Nasal Cannula O2 Flow Rate 4.0 4.0 4.0 02/05/18 02/05/18 02/05/18 02/05/18 20:00 21:13 21:56 22:00 Temp 98.5 98.5 Pulse 108 Resp 22 20 B/P (MAP) 96/48 (64) Pulse Ox 94 94 99 O2 Delivery Nasal Cannula Nasal Cannula Nasal Cannula O2 Flow Rate 4.0 4.0 4.0 02/05/18 02/05/18 02/05/18 02/06/18 22:13 23:00 23:30 03:00 Temp 97.4 97.7 97.4 97.7 Pulse 104 98 Resp 20 20 22 B/P (MAP) 127/71 (89) 130/69 (89) Pulse Ox 94 93 94 99 O2 Delivery Nasal Cannula Nasal Cannula Nasal Cannula O2 Flow Rate 4.0 4.0 4.0 02/06/18 02/06/18 02/06/18 02/06/18 04:01 05:38 06:00 07:10 Resp 22 Pulse Ox 96 96 93 96 O2 Delivery BiPAP/CPAP Intake and Output 02/05/18 02/05/18 02/06/18 15:00 23:00 07:00 Intake Total 551.68 ml 360 ml 350 ml Output Total 160 ml 200 ml Balance 391.68 ml 160 ml 350 ml HERNÁN TRISTAN MD Feb 06, 2018 08:12
[2018-02-06] MEDS ORDERED: POTASSIUM CHLORIDE 20 MEQ TABLET.ER. PO ONE (08:15)
[2018-02-06] MEDS: LACTOBACILLUS RHAMNOSUS GG 1 CAPSULE. PO SCH ×2 (09:48→21:08)
[2018-02-06] MEDS: CLOPIDOGREL BISULFATE 75 MG TABLET PO SCH (09:50)
[2018-02-06] MEDS: OMEGA-3 FATTY ACIDS/FISH OIL 1,000 MG CAPSULE. PO SCH ×2 (09:50→21:07)
[2018-02-06] MEDS: ASPIRIN ENTERIC COATED 81 MG TABLET.DR. PO SCH (09:50)
[2018-02-06] MEDS: FERROUS SULFATE 325 MG TABLET. PO SCH (09:50)
[2018-02-06] MEDS: ISOSORBIDE MONONITRATE ER 30 MG TAB.ER.24H PO SCH (09:52)
[2018-02-06] MEDS: FOLIC ACID 1 MG TABLET. PO SCH (10:37)
--- NOTE | 2018-02-06 11:04 | PDOC ---
PULMONARY PROGRESS NOTES Subjective extubated 02/04 doing better Vitals Vital Signs Date Time Temp Pulse Resp B/P (MAP) Pulse Ox O2 Delivery O2 Flow Rate FiO2 02/06/18 09:52 105 134/66 02/06/18 09:51 Nasal Cannula 4.0 02/06/18 08:00 96.4 22 95 96.4 General: Alert, No acute distress Lungs: Other (decrease bases) Cardiovascular: S1, S2 Abdomen: Soft, Non-tender Neuro Exam: Alert Extremities: No Edema Skin: Warm Labs Laboratory Tests Test 02/04/18 11:40 02/04/18 16:00 02/05/18 05:25 02/06/18 04:20 O2 Saturation 95 % (92-99) 94 % (92-99) Arterial Blood pH 7.34 (7.35-7.45) 7.35 (7.35-7.45) Arterial Blood pCO2 at Patient Temp 70 mmHg (35-46) 61 mmHg (35-46) Arterial Blood pO2 at Patient Temp 86 mmHg (65-108) 80 mmHg (65-108) Arterial Blood HCO3 36 mmol/L (21-28) 33 mmol/L (21-28) Arterial Blood Base Excess 8 mmol/L (-3-3) 6 mmol/L (-3-3) FiO2 50 35 White Blood Count 9.4 x10^3/uL (4.0-11.0) 6.8 x10^3/uL (4.0-11.0) Red Blood Count 3.02 x10^6/uL (3.50-5.40) 2.98 x10^6/uL (3.50-5.40) Hemoglobin 9.7 g/dL (12.0-15.5) 9.8 g/dL (12.0-15.5) Hematocrit 29.7 % (36.0-47.0) 29.2 % (36.0-47.0) Mean Corpuscular Volume 98 fL (79-100) 98 fL (79-100) Mean Corpuscular Hemoglobin 32 pg (25-35) 33 pg (25-35) Mean Corpuscular Hemoglobin Concent 33 g/dL (31-37) 34 g/dL (31-37) Red Cell Distribution Width 14.7 % (11.5-14.5) 14.4 % (11.5-14.5) Platelet Count 236 x10^3/uL (140-400) 248 x10^3/uL (140-400) Neutrophils (%) (Auto) 78 % (31-73) 72 % (31-73) Lymphocytes (%) (Auto) 11 % (24-48) 17 % (24-48) Monocytes (%) (Auto) 10 % (0-9) 9 % (0-9) Eosinophils (%) (Auto) 1 % (0-3) 2 % (0-3) Basophils (%) (Auto) 0 % (0-3) 0 % (0-3) Neutrophils # (Auto) 7.3 x10^3uL (1.8-7.7) 4.9 x10^3uL (1.8-7.7) Lymphocytes # (Auto) 1.0 x10^3/uL (1.0-4.8) 1.1 x10^3/uL (1.0-4.8) Monocytes # (Auto) 1.0 x10^3/uL (0.0-1.1) 0.6 x10^3/uL (0.0-1.1) Eosinophils # (Auto) 0.1 x10^3/uL (0.0-0.7) 0.1 x10^3/uL (0.0-0.7) Basophils # (Auto) 0.0 x10^3/uL (0.0-0.2) 0.0 x10^3/uL (0.0-0.2) Sodium Level 148 mmol/L (136-145) 148 mmol/L (136-145) Potassium Level 3.5 mmol/L (3.5-5.1) 3.3 mmol/L (3.5-5.1) Chloride Level 109 mmol/L (98-107) 109 mmol/L (98-107) Carbon Dioxide Level 35 mmol/L (21-32) 35 mmol/L (21-32) Anion Gap 4 (6-14) 4 (6-14) Blood Urea Nitrogen 18 mg/dL (7-20) 14 mg/dL (7-20) Creatinine 0.7 mg/dL (0.6-1.0) 0.7 mg/dL (0.6-1.0) Estimated GFR (Cockcroft-Gault) 84.8 84.8 Glucose Level 101 mg/dL (70-99) 93 mg/dL (70-99) Calcium Level 8.3 mg/dL (8.5-10.1) 8.4 mg/dL (8.5-10.1) Laboratory Tests Test 02/06/18 04:20 White Blood Count 6.8 x10^3/uL (4.0-11.0) Red Blood Count 2.98 x10^6/uL (3.50-5.40) Hemoglobin 9.8 g/dL (12.0-15.5) Hematocrit 29.2 % (36.0-47.0) Mean Corpuscular Volume 98 fL (79-100) Mean Corpuscular Hemoglobin 33 pg (25-35) Mean Corpuscular Hemoglobin Concent 34 g/dL (31-37) Red Cell Distribution Width 14.4 % (11.5-14.5) Platelet Count 248 x10^3/uL (140-400) Neutrophils (%) (Auto) 72 % (31-73) Lymphocytes (%) (Auto) 17 % (24-48) Monocytes (%) (Auto) 9 % (0-9) Eosinophils (%) (Auto) 2 % (0-3) Basophils (%) (Auto) 0 % (0-3) Neutrophils # (Auto) 4.9 x10^3uL (1.8-7.7) Lymphocytes # (Auto) 1.1 x10^3/uL (1.0-4.8) Monocytes # (Auto) 0.6 x10^3/uL (0.0-1.1) Eosinophils # (Auto) 0.1 x10^3/uL (0.0-0.7) Basophils # (Auto) 0.0 x10^3/uL (0.0-0.2) Sodium Level 148 mmol/L (136-145) Potassium Level 3.3 mmol/L (3.5-5.1) Chloride Level 109 mmol/L (98-107) Carbon Dioxide Level 35 mmol/L (21-32) Anion Gap 4 (6-14) Blood Urea Nitrogen 14 mg/dL (7-20) Creatinine 0.7 mg/dL (0.6-1.0) Estimated GFR (Cockcroft-Gault) 84.8 Glucose Level 93 mg/dL (70-99) Calcium Level 8.4 mg/dL (8.5-10.1) Medications Active Scripts Medications Dose Route/Sig Max Daily Dose Days Date Category Prednisone 20 Mg Tablet 40 Mg PO DAILY 02/11/17 Rx Albuterol Sulfate Neb Soln (Albuterol Sulfate) 2.5 Mg/3 Ml Vial.neb 2.5 Mg NEB PRN Q2HR PRN 30 02/11/17 Rx Advair 250-50 Diskus (Fluticasone/Salmeterol) 1 Each Disk.w.dev 1 Puff IH BID 02/11/17 Rx Atenolol 25 Mg Tablet 1 Tab PO DAILY 02/10/17 Reported Dicyclomine Hcl 10 Mg Capsule 1 Cap PO PRN 02/09/17 Reported Gabapentin 400 Mg Capsule 700 Mg PO DAILY 02/09/17 Reported Simethicone 80 Mg Tab.chew 80 Mg PO PRN 02/09/17 Reported Duoneb 0.5-3(2.5) Mg/3 Ml (Albuterol/Ipratropium) 3 Ml Ampul.neb 3 Ml NEB QID 02/09/17 Reported Mirapex (Pramipexole Di-Hcl) 0.25 Mg Tablet 0.5 Mg PO HS 02/09/17 Reported Ferrous Sulfate 325 Mg Tablet 325 Mg PO DAILY 12/04/16 Reported Multivitamins (Multivitamin) 1 Each Capsule 1 Each PO 05/30/16 Reported Folic Acid 1 Mg Tablet 1 Tab PO DAILY 05/30/16 Reported Isosorbide Mononitrate 20 Mg Tablet 60 Mg PO DAILY 05/30/16 Reported Probiotic (Lactobacillus Combo No.11) 1 Each Cap.sprink 1 Each PO DAILY 05/30/16 Reported Fish Oil ([place]-3 Fatty Acids) 300 Mg Capsule 1,200 Mg PO BID 05/30/16 Reported Crestor (Rosuvastatin Calcium) 40 Mg Tablet 1 Tab PO DAILY 05/30/16 Reported Aspir 81 (Aspirin) 81 Mg Tablet.dr 1 Tab PO DAILY 05/30/16 Reported Plavix (Clopidogrel Bisulfate) 75 Mg Tablet 75 Mg PO DAILY 02/28/16 Reported Oxycodone Hcl 10 Mg Tablet 10 Mg PO PRN TID PRN 02/28/16 Reported Meloxicam 7.5 Mg Tablet 7.5 Mg PO DAILY 02/28/16 Reported Prilosec Otc (Omeprazole Magnesium) 20 Mg Tablet.dr 20 Mg PO DAILY 02/28/16 Reported Famotidine 20 Mg Tablet 20 Mg PO BID 02/28/16 Reported Impression . 1. [id number] hypercapnic respiratory failure secondary to acute exacerbation of chronic obstructive pulmonary disease. extubated 02/05 2. 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 3. Acute toxic encephalopathy secondary to severe hypercarbia. 4. No definite consolidation seen on the chest x-ray with mildly prominent interstitial markings. 5. History of percutaneous coronary intervention. Plan . 1. will try nasal canula. BIPAP qhs and prn 2. ABGs improved 3. Continue bronchodilators. 4. Continue antibiotics for now. change to PO 5. DVT prophylaxis. 6. oral nutrition 7. Discussed with RN 8. Home over weekend PRERNA CALHOUN MD Feb 06, 2018 11:04
[2018-02-06] MEDS: ENOXAPARIN 40 MG/0.4 ML SYRINGE. SQ SCH (21:05)
[2018-02-06] MEDS: PRAMIPEXOLE 1 MG TABLET. PO SCH (21:06)
[2018-02-06] MEDS: ATORVASTATIN CALCIUM 40 MG TABLET. PO SCH (21:07)
[2018-02-06] MEDS: AMOXICILLIN/K CLAV 875/125MG TABLET. PO SCH (21:07)
[2018-02-07 03:00] VITALS: BP 138/60
[2018-02-07 05:22] LABS: BASO % 0 % (0-3); CALCIUM 8.7 mg/dL (8.5-10.1); CREATININE 0.7 mg/dL (0.6-1.0); EOS # 0.1 x10^3/uL (0.0-0.7); EOS % 2 % (0-3); GFR 84.8; HEMATOCRIT 29.9 % (36.0-47.0); HEMOGLOBIN 9.9 g/dL (12.0-15.5); LYMPH # 1.1 x10^3/uL (1.0-4.8); LYMPH % 20 % (24-48); MEAN CORPUSCULAR HEMOGLOBIN 32 pg (25-35); MEAN CORPUSCULAR HGB CONC 33 g/dL (31-37); MEAN CORPUSCULAR VOLUME 98 fL (79-100); MONO # 0.6 x10^3/uL (0.0-1.1); MONO % 10 % (0-9); NEUT # 3.9 x10^3uL (1.8-7.7); NEUT % 68 % (31-73); PLATELET COUNT 288 x10^3/uL (140-400); POTASSIUM 3.7 mmol/L (3.5-5.1); RED BLOOD COUNT 3.07 x10^6/uL (3.50-5.40); RED CELL DISTRIBUTION WIDTH 14.4 % (11.5-14.5); WHITE BLOOD COUNT 5.7 x10^3/uL (4.0-11.0)
[2018-02-07 07:00] VITALS: BP 160/79
[2018-02-07] MEDS: IPRATRPIUM/ALBUTEROL 0.5/2.5MG 3 ML NEBU. NEB SCH ×4 (07:38→20:21)
[2018-02-07] MEDS: OMEGA-3 FATTY ACIDS/FISH OIL 1,000 MG CAPSULE. PO SCH ×2 (08:17→20:34)
[2018-02-07] MEDS: POTASSIUM CHLORIDE 20 MEQ TABLET.ER. PO SCH (08:18)
[2018-02-07] MEDS: ISOSORBIDE MONONITRATE ER 30 MG TAB.ER.24H PO SCH (08:18)
[2018-02-07] MEDS: AMOXICILLIN/K CLAV 875/125MG TABLET. PO SCH ×2 (08:18→20:34)
[2018-02-07] MEDS: PANTOPRAZOLE 40 MG TABLET.DR. PO SCH (08:19)
[2018-02-07] MEDS: ASPIRIN ENTERIC COATED 81 MG TABLET.DR. PO SCH (08:19)
[2018-02-07] MEDS: LACTOBACILLUS RHAMNOSUS GG 1 CAPSULE. PO SCH ×2 (08:19→20:34)
[2018-02-07] MEDS: oxyCODONE IR 5 MG TABLET PO PRN ×2 (08:19→15:36)
[2018-02-07] MEDS: FERROUS SULFATE 325 MG TABLET. PO SCH (08:19)
[2018-02-07] MEDS: FOLIC ACID 1 MG TABLET. PO SCH (08:20)
[2018-02-07] MEDS: CLOPIDOGREL BISULFATE 75 MG TABLET PO SCH (08:20)
--- NOTE | 2018-02-07 08:21 | PDOC ---
PROGRESS NOTES Chief Complaint Chief Complaint Acute on chronic respiratory failure with underlying AECOPD/pulmonary HTN Suspect chronic diastolic CHF: No acute CHF. pro NT BNP at 92 Dyspnea due to severe COPD Hypotension: likely from sedation CAD: reactive sinus tach, no ectopies HTN HLD Hypercapnic encephalopathy severe lower [place] pain POA History of Present Illness History of Present Illness Pt admitted with acute respiratory failure hypoxica and hypercapnic, extubated on 02/04/18, bridged to BIPAP, transferred from ICU yesterday. Seen on the floor. Used BIPAP overnight well and is seen on ventimask with nebulizer treatments today. Potassium low, replaced. She has had BM, states her memory is not so great. She is still short of breath, denies CP. No family at bedside. Discussed with RN A/P: X/RAY LUMBAR SPINE Consult DR YANET Garcia on chronic respiratory failure with underlying AECOPD/pulmonary HTN - seen by pulm, cont BIPAP, can change antibiotics to oral Suspect chronic diastolic CHF - though BNP 92. Dyspnea due to severe COPD - prn BIPAP, nebs, O2 Hypotension: likely from sedation, improved today CAD: reactive sinus tach, no ectopies - stable on telemetry HTN - meds held for hypotension HLD - stable Hypercapnic encephalopathy - improving, she may have an underlying memory disorder FEN - Cardiac diet PPX - heparin FULL CODE Inpatient for another 1-2 days for recovery and discharge planning. See how she tolerates oral antibiotics Vitals Vitals Vital Signs Date Time Temp Pulse Resp B/P (MAP) Pulse Ox O2 Delivery O2 Flow Rate FiO2 02/07/18 08:19 Room Air 02/07/18 08:18 117 190/79 02/07/18 07:40 93 4.0 02/07/18 03:00 98.0 24 98.0 Physical Exam General: Alert, Oriented X3, Cooperative, No acute distress, moderate distress , Other (intubated, but looking around) Heart: Regular rate (sinus tach), Normal S1, Other (distant heart sounds) Lungs: Other (decrease bases) Abdomen: Normal bowel sounds, Soft, No tenderness Extremities: No cyanosis, Other (1+ bilateral LE pitting edema) Skin: No breakdown, No significant lesion Labs LABS Laboratory Tests Test 02/07/18 04:30 White Blood Count 5.7 x10^3/uL (4.0-11.0) Red Blood Count 3.07 x10^6/uL (3.50-5.40) Hemoglobin 9.9 g/dL (12.0-15.5) Hematocrit 29.9 % (36.0-47.0) Mean Corpuscular Volume 98 fL (79-100) Mean Corpuscular Hemoglobin 32 pg (25-35) Mean Corpuscular Hemoglobin Concent 33 g/dL (31-37) Red Cell Distribution Width 14.4 % (11.5-14.5) Platelet Count 288 x10^3/uL (140-400) Neutrophils (%) (Auto) 68 % (31-73) Lymphocytes (%) (Auto) 20 % (24-48) Monocytes (%) (Auto) 10 % (0-9) Eosinophils (%) (Auto) 2 % (0-3) Basophils (%) (Auto) 0 % (0-3) Neutrophils # (Auto) 3.9 x10^3uL (1.8-7.7) Lymphocytes # (Auto) 1.1 x10^3/uL (1.0-4.8) Monocytes # (Auto) 0.6 x10^3/uL (0.0-1.1) Eosinophils # (Auto) 0.1 x10^3/uL (0.0-0.7) Basophils # (Auto) 0.0 x10^3/uL (0.0-0.2) Sodium Level 149 mmol/L (136-145) Potassium Level 3.7 mmol/L (3.5-5.1) Chloride Level 107 mmol/L (98-107) Carbon Dioxide Level 34 mmol/L (21-32) Anion Gap 8 (6-14) Blood Urea Nitrogen 9 mg/dL (7-20) Creatinine 0.7 mg/dL (0.6-1.0) Estimated GFR (Cockcroft-Gault) 84.8 Glucose Level 107 mg/dL (70-99) Calcium Level 8.7 mg/dL (8.5-10.1) Assessment and Plan Assessmemt and Plan Problems Medical Problems: (1) Respiratory failure Status: Acute Comment Review of Relevant I have reviewed the following items afshin (where applicable) has been applied. Labs Laboratory Tests Test 02/06/18 04:20 02/07/18 04:30 White Blood Count 6.8 x10^3/uL (4.0-11.0) 5.7 x10^3/uL (4.0-11.0) Red Blood Count 2.98 x10^6/uL (3.50-5.40) 3.07 x10^6/uL (3.50-5.40) Hemoglobin 9.8 g/dL (12.0-15.5) 9.9 g/dL (12.0-15.5) Hematocrit 29.2 % (36.0-47.0) 29.9 % (36.0-47.0) Mean Corpuscular Volume 98 fL (79-100) 98 fL (79-100) Mean Corpuscular Hemoglobin 33 pg (25-35) 32 pg (25-35) Mean Corpuscular Hemoglobin Concent 34 g/dL (31-37) 33 g/dL (31-37) Red Cell Distribution Width 14.4 % (11.5-14.5) 14.4 % (11.5-14.5) Platelet Count 248 x10^3/uL (140-400) 288 x10^3/uL (140-400) Neutrophils (%) (Auto) 72 % (31-73) 68 % (31-73) Lymphocytes (%) (Auto) 17 % (24-48) 20 % (24-48) Monocytes (%) (Auto) 9 % (0-9) 10 % (0-9) Eosinophils (%) (Auto) 2 % (0-3) 2 % (0-3) Basophils (%) (Auto) 0 % (0-3) 0 % (0-3) Neutrophils # (Auto) 4.9 x10^3uL (1.8-7.7) 3.9 x10^3uL (1.8-7.7) Lymphocytes # (Auto) 1.1 x10^3/uL (1.0-4.8) 1.1 x10^3/uL (1.0-4.8) Monocytes # (Auto) 0.6 x10^3/uL (0.0-1.1) 0.6 x10^3/uL (0.0-1.1) Eosinophils # (Auto) 0.1 x10^3/uL (0.0-0.7) 0.1 x10^3/uL (0.0-0.7) Basophils # (Auto) 0.0 x10^3/uL (0.0-0.2) 0.0 x10^3/uL (0.0-0.2) Sodium Level 148 mmol/L (136-145) 149 mmol/L (136-145) Potassium Level 3.3 mmol/L (3.5-5.1) 3.7 mmol/L (3.5-5.1) Chloride Level 109 mmol/L (98-107) 107 mmol/L (98-107) Carbon Dioxide Level 35 mmol/L (21-32) 34 mmol/L (21-32) Anion Gap 4 (6-14) 8 (6-14) Blood Urea Nitrogen 14 mg/dL (7-20) 9 mg/dL (7-20) Creatinine 0.7 mg/dL (0.6-1.0) 0.7 mg/dL (0.6-1.0) Estimated GFR (Cockcroft-Gault) 84.8 84.8 Glucose Level 93 mg/dL (70-99) 107 mg/dL (70-99) Calcium Level 8.4 mg/dL (8.5-10.1) 8.7 mg/dL (8.5-10.1) Laboratory Tests Test 02/07/18 04:30 White Blood Count 5.7 x10^3/uL (4.0-11.0) Red Blood Count 3.07 x10^6/uL (3.50-5.40) Hemoglobin 9.9 g/dL (12.0-15.5) Hematocrit 29.9 % (36.0-47.0) Mean Corpuscular Volume 98 fL (79-100) Mean Corpuscular Hemoglobin 32 pg (25-35) Mean Corpuscular Hemoglobin Concent 33 g/dL (31-37) Red Cell Distribution Width 14.4 % (11.5-14.5) Platelet Count 288 x10^3/uL (140-400) Neutrophils (%) (Auto) 68 % (31-73) Lymphocytes (%) (Auto) 20 % (24-48) Monocytes (%) (Auto) 10 % (0-9) Eosinophils (%) (Auto) 2 % (0-3) Basophils (%) (Auto) 0 % (0-3) Neutrophils # (Auto) 3.9 x10^3uL (1.8-7.7) Lymphocytes # (Auto) 1.1 x10^3/uL (1.0-4.8) Monocytes # (Auto) 0.6 x10^3/uL (0.0-1.1) Eosinophils # (Auto) 0.1 x10^3/uL (0.0-0.7) Basophils # (Auto) 0.0 x10^3/uL (0.0-0.2) Sodium Level 149 mmol/L (136-145) Potassium Level 3.7 mmol/L (3.5-5.1) Chloride Level 107 mmol/L (98-107) Carbon Dioxide Level 34 mmol/L (21-32) Anion Gap 8 (6-14) Blood Urea Nitrogen 9 mg/dL (7-20) Creatinine 0.7 mg/dL (0.6-1.0) Estimated GFR (Cockcroft-Gault) 84.8 Glucose Level 107 mg/dL (70-99) Calcium Level 8.7 mg/dL (8.5-10.1) Microbiology 02/03/18 Blood Culture - Preliminary, Resulted NO GROWTH AFTER 3 DAYS Medications Current Medications Propofol 50 ml @ As Directed STK-MED ONCE IV ; Start 02/03/18 at 18:03; Stop 02/03/18 at 18:04; Status DC Albuterol/ Ipratropium (Duoneb) 3 ml STK-MED ONCE .ROUTE ; Start 02/03/18 at 18 :05; Stop 02/03/18 at 18:06; Status DC Albuterol/ Ipratropium (Duoneb) 3 ml 1X ONCE NEB Last administered on at 18:20; Start 02/03/18 at 18:30; Stop 02/03/18 at 18:31; Status DC Albuterol/ Ipratropium (Duoneb) 3 ml 1X ONCE NEB ; Start 02/03/18 at 18:30; Stop 02/03/18 at 18:31; Status UNV Fentanyl Citrate 30 ml @ 0 mls/hr CONT PRN IV PER PROTOCOL Last administered on 02/04/18at 05:11; Start 02/03/18 at 18:30; Stop 02/06/18 at 13:17; Status DC Propofol 100 ml @ 0 mls/hr CONT PRN IV PER PROTOCOL Last administered on at 03:47; Start 02/03/18 at 18:30; Stop 02/06/18 at 13:18; Status DC Fentanyl Citrate (Fentanyl 2ml Vial) 25 mcg PRN Q1HR PRN IV MILD PAIN AND/OR RASS +1 OR +2; Start 02/03/18 at 18:30; Stop 02/06/18 at 13:20; Status DC Fentanyl Citrate (Fentanyl 2ml Vial) 50 mcg PRN Q1HR PRN IV MOD TO SEVERE PAIN / RASS +3 +4 Last administered on 02/05/18at 19:24; Start 02/03/18 at 18:30; Stop 02/06/18 at 13:20; Status DC Chlorhexidine Gluconate (Peridex) 15 ml BID MM ; Start 02/03/18 at 21:00; Stop 02/04/18 at 07:43; Status DC Norepinephrine Bitartrate 250 ml @ As Directed STK-MED ONCE IV ; Start at 18:41; Stop 02/03/18 at 18:42; Status DC Sodium Chloride 500 ml @ 500 mls/hr 1X ONCE IV Last administered on at 18:30; Start 02/03/18 at 19:00; Stop 02/03/18 at 19:59; Status DC Norepinephrine Bitartrate 250 ml @ 1.875 mls/ hr 1X ONCE IV Last administered on 02/03/18at 18:55; Start 02/03/18 at 19:00; Stop 02/06/18 at 13: 18; Status DC Etomidate (Amidate) 20 mg 1X ONCE IV Last administered on 02/03/18at 17:58; Start 02/03/18 at 19:00; Stop 02/03/18 at 19:02; Status DC Etomidate (Amidate) 20 mg 1X ONCE IV Last administered on 02/03/18at 18:03; Start 02/03/18 at 19:00; Stop 02/03/18 at 19:04; Status DC Succinylcholine Chloride (Anectine) 120 mg 1X ONCE IV Last administered on at 18:03; Start 02/03/18 at 19:00; Stop 02/03/18 at 19:01; Status DC Sodium Chloride 500 ml @ 500 mls/hr 1X ONCE IV ; Start 02/03/18 at 19:00; Stop 02/03/18 at 19:59; Status UNV Albuterol Sulfate (Ventolin Neb Soln) 10 mg 1X ONCE CONT NEB Last administered on 02/03/18at 19:22; Start 02/03/18 at 19:15; Stop 02/03/18 at 19 :16; Status DC Albuterol Sulfate (Ventolin Neb Soln) 2.5 mg STK-MED ONCE .ROUTE ; Start at 19:14; Stop 02/03/18 at 19:15; Status DC Fentanyl Citrate (Fentanyl 2ml Vial) 100 mcg STK-MED ONCE .ROUTE ; Start at 22:34; Stop 02/03/18 at 22:35; Status DC Piperacillin Sod/ Tazobactam Sod (Zosyn Per Pharmacy) 1 each PRN DAILY PRN MC SEE COMMENTS; Start 02/03/18 at 23:15; Stop 02/06/18 at 13:17; Status DC Albuterol Sulfate (Ventolin Neb Soln) 2.5 mg PRN Q2HR PRN NEB SHORTNESS OF BREATH; Start 02/03/18 at 23:15 Aspirin (Ecotrin) 81 mg DAILY PO Last administered on 02/07/18at 08:19; Start 02/04/18 at 09:00 Clopidogrel Bisulfate (Plavix) 75 mg DAILY PO Last administered on 02/07/18at 08 :20; Start 02/04/18 at 09:00 Famotidine (Pepcid) 20 mg BID PO ; Start 02/04/18 at 09:00; Stop 02/04/18 at 09:00; Status DC Ferrous Sulfate (Feosol) 325 mg DAILY PO Last administered on 02/07/18at 08:19; Start 02/04/18 at 09:00 Folic Acid (Folic Acid) 1 mg DAILY PO Last administered on 02/07/18at 08:20; Start 02/04/18 at 09:00 Albuterol/ Ipratropium (Duoneb) 3 ml RTQID NEB Last administered on 02/07/18at 07:38; Start 02/04/18 at 08:00 Isosorbide Mononitrate (Imdur) 60 mg DAILY PO Last administered on 02/07/18at 08 :18; Start 02/04/18 at 09:00 Lactobacillus Rhamnosus (Culturelle) 1 cap BID PO Last administered on at 08:19; Start 02/04/18 at 09:00 Fish Oil (Fish Oil) 1,000 mg BID PO Last administered on 02/07/18at 08:17; Start 02/04/18 at 09:00 Non-Formulary Medication (Omeprazole Magnesium (Prilosec Otc)) 20 mg DAILY PO ; Start 02/04/18 at 09:00; Status UNV Atorvastatin Calcium (Lipitor) 80 mg QHS PO Last administered on 02/06/18at 21: 07; Start 02/04/18 at 21:00 Pantoprazole Sodium (PROTONIX VIAL for IV PUSH) 40 mg DAILYAC IVP Last administered on 02/06/18at 05:19; Start 02/04/18 at 07:30; Stop 02/06/18 at 13: 21; Status DC Enoxaparin Sodium (Lovenox 40mg Syringe) 40 mg QHS SQ Last administered on 02/06at 21:05; Start 02/03/18 at 23:15 Pantoprazole Sodium (PROTONIX VIAL for IV PUSH) 40 mg 1X ONCE IVP ; Start at 00:00; Stop 02/03/18 at 00:01; Status Cancel Piperacillin Sod/ Tazobactam Sod 3.375 gm/Sodium Chloride 50 ml @ 100 mls/hr Q6HRS IV Last administered on 02/06/18at 05:15; Start 02/04/18 at 00:00; Stop 02/06/18 at 11:05; Status DC Sodium Chloride 1,000 ml @ 80 mls/hr [id number] IV Last administered on at 03:20; Start 02/03/18 at 23:45; Stop 02/05/18 at 11:12; Status DC Pantoprazole Sodium (PROTONIX VIAL for IV PUSH) 40 mg 1X ONCE IVP Last administered on 02/04/18at 00:44; Start 02/04/18 at 00:30; Stop 02/04/18 at 00 :31; Status DC Sodium Chloride 500 ml @ 500 mls/hr 1X ONCE IV Last administered on at 03:47; Start 02/04/18 at 03:30; Stop 02/04/18 at 04:29; Status DC Pramipexole Dihydrochloride (miraPEX) 0.5 mg QHS PO Last administered on at 21:06; Start 02/04/18 at 21:00 Senna/Docusate Sodium (Senna Plus) 1 tab PRN BID PRN PO CONSTIPATION 2ND CHOICE Last administered on 02/05/18at 11:46; Start 02/05/18 at 11:15 Polyethylene Glycol (miraLAX PACKET) 17 gm PRN DAILY PRN PO CONSTIPATION 1ST CHOICE Last administered on 02/05/18at 11:47; Start 02/05/18 at 11:15 Oxycodone HCl (Roxicodone) 10 mg TID PRN PRN PO PAIN Last administered on at 08:19; Start 02/05/18 at 13:00 Potassium Chloride (Klor-Con) 40 meq 1X ONCE PO Last administered on at 09:49; Start 02/06/18 at 08:15; Stop 02/06/18 at 08:16; Status DC Potassium Chloride (Klor-Con) 20 meq [id number] PO Last administered on at 08:18; Start 02/07/18 at 08:00 Amoxicillin/ Clavulanate Potassium (Augmentin 875/ 125mg) 1 tab BID PO Last administered on 02/07/18at 08:18; Start 02/06/18 at 21:00 Pantoprazole Sodium (Protonix) 40 mg DAILYAC PO Last administered on 02/07/18at 08:19; Start 02/07/18 at 07:30 Active Scripts Active Prednisone 20 Mg Tablet 40 Mg PO DAILY Albuterol Sulfate Neb Soln (Albuterol Sulfate) 2.5 Mg/3 Ml Vial.neb 2.5 Mg NEB PRN Q2HR PRN 30 Days Advair 250-50 Diskus (Fluticasone/Salmeterol) 1 Each Disk.w.dev 1 Puff IH BID Reported Atenolol 25 Mg Tablet 1 Tab PO DAILY Dicyclomine Hcl 10 Mg Capsule 1 Cap PO PRN Gabapentin 400 Mg Capsule 700 Mg PO DAILY Simethicone 80 Mg Tab.chew 80 Mg PO PRN Duoneb 0.5-3(2.5) Mg/3 Ml (Albuterol/Ipratropium) 3 Ml Ampul.neb 3 Ml NEB QID Mirapex (Pramipexole Di-Hcl) 0.25 Mg Tablet 0.5 Mg PO HS Ferrous Sulfate 325 Mg Tablet 325 Mg PO DAILY Multivitamins (Multivitamin) 1 Each Capsule 1 Each PO Folic Acid 1 Mg Tablet 1 Tab PO DAILY Isosorbide Mononitrate 20 Mg Tablet 60 Mg PO DAILY Probiotic (Lactobacillus Combo No.11) 1 Each Cap.sprink 1 Each PO DAILY Fish Oil ([place]-3 Fatty Acids) 300 Mg Capsule 1,200 Mg PO BID Crestor (Rosuvastatin Calcium) 40 Mg Tablet 1 Tab PO DAILY Aspir 81 (Aspirin) 81 Mg Tablet.dr 1 Tab PO DAILY Plavix (Clopidogrel Bisulfate) 75 Mg Tablet 75 Mg PO DAILY Oxycodone Hcl 10 Mg Tablet 10 Mg PO PRN TID PRN Meloxicam 7.5 Mg Tablet 7.5 Mg PO DAILY Prilosec Otc (Omeprazole Magnesium) 20 Mg Tablet. 20 Mg PO DAILY Famotidine 20 Mg Tablet 20 Mg PO BID Vitals/I & O Vital Sign - Last 24 Hours 02/06/18 02/06/18 02/06/18 02/06/18 08:30 08:30 09:51 09:52 Pulse 105 B/P (MAP) 134/66 O2 Delivery Nasal Cannula Nasal Cannula O2 Flow Rate 4.0 4.0 4.0 02/06/18 02/06/18 02/06/18 02/06/18 11:07 12:00 13:01 15:29 Temp 98.1 98.1 Pulse 109 Resp 22 B/P (MAP) 109/48 (68) Pulse Ox 96 88 88 O2 Delivery Venturi Mask Venturi Mask Nasal Cannula Nasal Cannula O2 Flow Rate 9.0 4.0 4.0 4.0 02/06/18 02/06/18 02/06/18 02/06/18 16:00 19:00 19:56 20:00 Temp 98.1 98.6 98.1 98.6 Pulse 105 111 Resp 22 22 B/P (MAP) 113/57 (75) 128/64 (85) Pulse Ox 92 95 97 O2 Delivery Nasal Cannula Nasal Cannula Nasal Cannula O2 Flow Rate 4.0 4.0 4.0 4.0 02/06/18 02/06/18 02/06/18 02/06/18 20:00 20:05 21:08 22:30 Temp 98.6 98.6 Pulse 111 Resp 22 20 B/P (MAP) 128/64 (85) Pulse Ox 95 95 O2 Delivery Nasal Cannula Nasal Cannula Nasal Cannula Nasal Cannula O2 Flow Rate 3.5 4.0 3.5 3.5 02/06/18 02/07/18 02/07/18 02/07/18 23:00 03:00 07:40 08:18 Temp 97.7 98.0 97.7 98.0 Pulse 116 120 117 Resp 24 24 B/P (MAP) 131/63 (85) 138/60 (86) 190/79 Pulse Ox 93 90 93 O2 Delivery Nasal Cannula Nasal Cannula Nasal Cannula O2 Flow Rate 4.0 4.0 4.0 02/07/18 08:19 O2 Delivery Room Air Intake and Output 02/06/18 02/06/18 02/07/18 15:00 23:00 07:00 Intake Total 550 ml 80 ml Output Total 1 ml Balance 550 ml 79 ml FAUSTO LEMUS MD Feb 07, 2018 08:21
--- NOTE | 2018-02-07 09:21 | PDOC ---
PULMONARY PROGRESS NOTES Subjective extubated 02/04 doing better post nasal drip anxious, wants meds Vitals Vital Signs Date Time Temp Pulse Resp B/P (MAP) Pulse Ox O2 Delivery O2 Flow Rate FiO2 02/07/18 08:19 Room Air 02/07/18 08:18 117 190/79 02/07/18 07:40 93 4.0 02/07/18 03:00 98.0 24 98.0 General: Alert, No acute distress Lungs: Other (decrease bases) Cardiovascular: S1, S2 Abdomen: Soft, Non-tender Neuro Exam: Alert Extremities: No Edema Skin: Warm Labs Laboratory Tests Test 02/06/18 04:20 02/07/18 04:30 White Blood Count 6.8 x10^3/uL (4.0-11.0) 5.7 x10^3/uL (4.0-11.0) Red Blood Count 2.98 x10^6/uL (3.50-5.40) 3.07 x10^6/uL (3.50-5.40) Hemoglobin 9.8 g/dL (12.0-15.5) 9.9 g/dL (12.0-15.5) Hematocrit 29.2 % (36.0-47.0) 29.9 % (36.0-47.0) Mean Corpuscular Volume 98 fL (79-100) 98 fL (79-100) Mean Corpuscular Hemoglobin 33 pg (25-35) 32 pg (25-35) Mean Corpuscular Hemoglobin Concent 34 g/dL (31-37) 33 g/dL (31-37) Red Cell Distribution Width 14.4 % (11.5-14.5) 14.4 % (11.5-14.5) Platelet Count 248 x10^3/uL (140-400) 288 x10^3/uL (140-400) Neutrophils (%) (Auto) 72 % (31-73) 68 % (31-73) Lymphocytes (%) (Auto) 17 % (24-48) 20 % (24-48) Monocytes (%) (Auto) 9 % (0-9) 10 % (0-9) Eosinophils (%) (Auto) 2 % (0-3) 2 % (0-3) Basophils (%) (Auto) 0 % (0-3) 0 % (0-3) Neutrophils # (Auto) 4.9 x10^3uL (1.8-7.7) 3.9 x10^3uL (1.8-7.7) Lymphocytes # (Auto) 1.1 x10^3/uL (1.0-4.8) 1.1 x10^3/uL (1.0-4.8) Monocytes # (Auto) 0.6 x10^3/uL (0.0-1.1) 0.6 x10^3/uL (0.0-1.1) Eosinophils # (Auto) 0.1 x10^3/uL (0.0-0.7) 0.1 x10^3/uL (0.0-0.7) Basophils # (Auto) 0.0 x10^3/uL (0.0-0.2) 0.0 x10^3/uL (0.0-0.2) Sodium Level 148 mmol/L (136-145) 149 mmol/L (136-145) Potassium Level 3.3 mmol/L (3.5-5.1) 3.7 mmol/L (3.5-5.1) Chloride Level 109 mmol/L (98-107) 107 mmol/L (98-107) Carbon Dioxide Level 35 mmol/L (21-32) 34 mmol/L (21-32) Anion Gap 4 (6-14) 8 (6-14) Blood Urea Nitrogen 14 mg/dL (7-20) 9 mg/dL (7-20) Creatinine 0.7 mg/dL (0.6-1.0) 0.7 mg/dL (0.6-1.0) Estimated GFR (Cockcroft-Gault) 84.8 84.8 Glucose Level 93 mg/dL (70-99) 107 mg/dL (70-99) Calcium Level 8.4 mg/dL (8.5-10.1) 8.7 mg/dL (8.5-10.1) Laboratory Tests Test 02/07/18 04:30 White Blood Count 5.7 x10^3/uL (4.0-11.0) Red Blood Count 3.07 x10^6/uL (3.50-5.40) Hemoglobin 9.9 g/dL (12.0-15.5) Hematocrit 29.9 % (36.0-47.0) Mean Corpuscular Volume 98 fL (79-100) Mean Corpuscular Hemoglobin 32 pg (25-35) Mean Corpuscular Hemoglobin Concent 33 g/dL (31-37) Red Cell Distribution Width 14.4 % (11.5-14.5) Platelet Count 288 x10^3/uL (140-400) Neutrophils (%) (Auto) 68 % (31-73) Lymphocytes (%) (Auto) 20 % (24-48) Monocytes (%) (Auto) 10 % (0-9) Eosinophils (%) (Auto) 2 % (0-3) Basophils (%) (Auto) 0 % (0-3) Neutrophils # (Auto) 3.9 x10^3uL (1.8-7.7) Lymphocytes # (Auto) 1.1 x10^3/uL (1.0-4.8) Monocytes # (Auto) 0.6 x10^3/uL (0.0-1.1) Eosinophils # (Auto) 0.1 x10^3/uL (0.0-0.7) Basophils # (Auto) 0.0 x10^3/uL (0.0-0.2) Sodium Level 149 mmol/L (136-145) Potassium Level 3.7 mmol/L (3.5-5.1) Chloride Level 107 mmol/L (98-107) Carbon Dioxide Level 34 mmol/L (21-32) Anion Gap 8 (6-14) Blood Urea Nitrogen 9 mg/dL (7-20) Creatinine 0.7 mg/dL (0.6-1.0) Estimated GFR (Cockcroft-Gault) 84.8 Glucose Level 107 mg/dL (70-99) Calcium Level 8.7 mg/dL (8.5-10.1) Medications Active Scripts Medications Dose Route/Sig Max Daily Dose Days Date Category Prednisone 20 Mg Tablet 40 Mg PO DAILY 02/11/17 Rx Albuterol Sulfate Neb Soln (Albuterol Sulfate) 2.5 Mg/3 Ml Vial.neb 2.5 Mg NEB PRN Q2HR PRN 30 02/11/17 Rx Advair 250-50 Diskus (Fluticasone/Salmeterol) 1 Each Disk.w.dev 1 Puff IH BID 02/11/17 Rx Atenolol 25 Mg Tablet 1 Tab PO DAILY 02/10/17 Reported Dicyclomine Hcl 10 Mg Capsule 1 Cap PO PRN 02/09/17 Reported Gabapentin 400 Mg Capsule 700 Mg PO DAILY 02/09/17 Reported Simethicone 80 Mg Tab.chew 80 Mg PO PRN 02/09/17 Reported Duoneb 0.5-3(2.5) Mg/3 Ml (Albuterol/Ipratropium) 3 Ml Ampul.neb 3 Ml NEB QID 02/09/17 Reported Mirapex (Pramipexole Di-Hcl) 0.25 Mg Tablet 0.5 Mg PO HS 02/09/17 Reported Ferrous Sulfate 325 Mg Tablet 325 Mg PO DAILY 12/04/16 Reported Multivitamins (Multivitamin) 1 Each Capsule 1 Each PO 05/30/16 Reported Folic Acid 1 Mg Tablet 1 Tab PO DAILY 05/30/16 Reported Isosorbide Mononitrate 20 Mg Tablet 60 Mg PO DAILY 05/30/16 Reported Probiotic (Lactobacillus Combo No.11) 1 Each Cap.sprink 1 Each PO DAILY 05/30/16 Reported Fish Oil ([place]-3 Fatty Acids) 300 Mg Capsule 1,200 Mg PO BID 05/30/16 Reported Crestor (Rosuvastatin Calcium) 40 Mg Tablet 1 Tab PO DAILY 05/30/16 Reported Aspir 81 (Aspirin) 81 Mg Tablet.dr 1 Tab PO DAILY 05/30/16 Reported Plavix (Clopidogrel Bisulfate) 75 Mg Tablet 75 Mg PO DAILY 02/28/16 Reported Oxycodone Hcl 10 Mg Tablet 10 Mg PO PRN TID PRN 02/28/16 Reported Meloxicam 7.5 Mg Tablet 7.5 Mg PO DAILY 02/28/16 Reported Prilosec Otc (Omeprazole Magnesium) 20 Mg Tablet.dr 20 Mg PO DAILY 02/28/16 Reported Famotidine 20 Mg Tablet 20 Mg PO BID 02/28/16 Reported Impression . 1. [id number] hypercapnic respiratory failure secondary to acute exacerbation of chronic obstructive pulmonary disease. extubated 02/05 2. 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 3. Acute toxic encephalopathy secondary to severe hypercarbia. 4. No definite consolidation seen on the chest x-ray with mildly prominent interstitial markings. 5. History of percutaneous coronary intervention. 6. Post nasal drip 7. Anxiety disorder Plan . 1. nasal canula. BIPAP qhs and prn 2. ABGs improved 3. Continue bronchodilators. 4. PO antibiotics 5. DVT prophylaxis. 6. oral nutrition 7. Discussed with RN 8. ADD nasal spray 9. add Xanax prn PRERNA CALHOUN MD Feb 07, 2018 09:21
[2018-02-07] MEDS: ALPRAZolam 0.25 MG TABLET PO PRN (09:47)
[2018-02-07 11:00] VITALS: BP 123/59
[2018-02-07] MEDS: FLUTICASONE 50MCG/NASAL SPRAY 16GM BOTTLE. NS SCH (11:29)
[2018-02-07] MEDS ORDERED: SIMETHICONE 80 MG TAB.CHEW PO PRN (13:30)
[2018-02-07] MEDS: GABAPENTIN 400 MG CAPSULE. PO SCH (13:48)
[2018-02-07] MEDS: guaiFENesin DM 600/30MG 1 TAB TAB.ER.12H PO SCH ×2 (13:48→20:34)
[2018-02-07] MEDS: DICYCLOMINE HCL 10 MG CAPSULE PO SCH ×2 (13:49→20:39)
[2018-02-07] MEDS: ATENOLOL 25 MG TABLET. PO SCH (13:49)
[2018-02-07] MEDS: MELOXICAM 7.5 MG TABLET PO SCH (13:49)
[2018-02-07 15:00] VITALS: BP 159/72
--- NOTE | 2018-02-07 15:02 | RAD ---
Examination: 2 views of the lumbar spine HISTORY: History of low back pain COMPARISON: None available FINDINGS: The lumbar vertebral body heights are maintained. Mild to moderate intervertebral disc height loss identified in the lumbar spine. The facets are well aligned. Severe aortic atherosclerosis. IMPRESSION: Moderate degenerative changes lumbar spine. Electronically signed by: Velasquez Cash MD (02/07/2018 2:59 PM) [facility]
[2018-02-07] MEDS: ALBUTEROL SULFATE 2.5 MG/3 ML NEBU. NEB SCH ×2 (17:00→21:00)
[2018-02-07 19:00] VITALS: BP 97/51
[2018-02-07] MEDS: BUDESONIDE 0.5 MG/2 ML NEBU. NEB SCH (20:22)
[2018-02-07] MEDS: ENOXAPARIN 40 MG/0.4 ML SYRINGE. SQ SCH (20:33)
[2018-02-07] MEDS: PRAMIPEXOLE 1 MG TABLET. PO SCH (20:33)
[2018-02-07] MEDS: ATORVASTATIN CALCIUM 40 MG TABLET. PO SCH (20:34)
[2018-02-07] MEDS ORDERED: PRAMIPEXOLE 1 MG TABLET. PO SCH (21:00)
[2018-02-07] MEDS ORDERED: NON FORMULARY ITEM (Fluticasone/Salmeterol (Advair 250-50 Diskus) 1 PUFF) IH SCH (21:00)
[2018-02-07 23:00] VITALS: BP 105/53
[2018-02-08 03:00] VITALS: BP 121/74
[2018-02-08] MEDS: DICYCLOMINE HCL 10 MG CAPSULE PO SCH ×4 (05:20→23:10)
[2018-02-08 05:22] LABS: BASO % 0 % (0-3); EOS # 0.2 x10^3/uL (0.0-0.7); EOS % 3 % (0-3); HEMATOCRIT 33.9 % (36.0-47.0); LYMPH # 1.1 x10^3/uL (1.0-4.8); LYMPH % 19 % (24-48); MEAN CORPUSCULAR HEMOGLOBIN 32 pg (25-35); MEAN CORPUSCULAR HGB CONC 33 g/dL (31-37); MEAN CORPUSCULAR VOLUME 98 fL (79-100); MONO # 0.6 x10^3/uL (0.0-1.1); MONO % 11 % (0-9); NEUT # 3.7 x10^3uL (1.8-7.7); NEUT % 67 % (31-73); PLATELET COUNT 347 x10^3/uL (140-400); RED BLOOD COUNT 3.46 x10^6/uL (3.50-5.40); RED CELL DISTRIBUTION WIDTH 14.3 % (11.5-14.5); WHITE BLOOD COUNT 5.6 x10^3/uL (4.0-11.0)
[2018-02-08 05:49] LABS: CALCIUM 9.2 mg/dL (8.5-10.1); CREATININE 0.6 mg/dL (0.6-1.0); GFR 101.3
[2018-02-08 07:00] VITALS: BP 134/55
[2018-02-08] MEDS: BUDESONIDE 0.5 MG/2 ML NEBU. NEB SCH ×2 (07:32→19:40)
[2018-02-08] MEDS: IPRATRPIUM/ALBUTEROL 0.5/2.5MG 3 ML NEBU. NEB SCH ×4 (07:32→19:40)
[2018-02-08] MEDS: GABAPENTIN 400 MG CAPSULE. PO SCH (08:15)
[2018-02-08] MEDS: MELOXICAM 7.5 MG TABLET PO SCH (08:17)
[2018-02-08] MEDS: PANTOPRAZOLE 40 MG TABLET.DR. PO SCH (08:17)
[2018-02-08] MEDS: ALBUTEROL SULFATE 2.5 MG/3 ML NEBU. NEB SCH ×4 (09:00→21:00)
--- NOTE | 2018-02-08 09:07 | PDOC ---
PROGRESS NOTES Chief Complaint Chief Complaint Acute on chronic respiratory failure with underlying AECOPD/pulmonary HTN Suspect chronic diastolic CHF: No acute CHF. pro NT BNP at 92 Dyspnea due to severe COPD Hypotension: likely from sedation CAD: reactive sinus tach, no ectopies HTN HLD Hypercapnic encephalopathy severe lower [place] pain POA History of Present Illness History of Present Illness Pt admitted with acute respiratory failure hypoxica and hypercapnic, extubated on 02/04/18, bridged to BIPAP, transferred from ICU yesterday. Seen on the floor. Used BIPAP overnight well and is seen on ventimask with nebulizer treatments today. Potassium low, replaced. She has had BM, states her memory is not so great. She is still short of breath, denies CP. No family at bedside. Discussed with RN A/P: X/RAY LUMBAR SPINE Consult DR HOLT Acute on chronic respiratory failure with underlying AECOPD/pulmonary HTN - seen by pulm, cont BIPAP, can change antibiotics to oral Suspect chronic diastolic CHF - though BNP 92. Dyspnea due to severe COPD - prn BIPAP, nebs, O2 Hypotension: likely from sedation, improved today CAD: reactive sinus tach, no ectopies - stable on telemetry HTN - meds held for hypotension HLD - stable Hypercapnic encephalopathy - improving, she may have an underlying memory disorder FEN - Cardiac diet PPX - heparin FULL CODE Inpatient for another 1-2 days for recovery and discharge planning. See how she tolerates oral antibiotics Vitals Vitals Vital Signs Date Time Temp Pulse Resp B/P (MAP) Pulse Ox O2 Delivery O2 Flow Rate FiO2 02/08/18 08:22 4.0 02/08/18 07:37 96 Nasal Cannula 02/08/18 03:00 98.0 93 18 121/74 (90) 98.0 Physical Exam General: Alert, Oriented X3, Cooperative, No acute distress, moderate distress , Other (intubated, but looking around) Heart: Regular rate (sinus tach), Normal S1, Other (distant heart sounds) Lungs: Other (decrease bases) Abdomen: Normal bowel sounds, Soft, No tenderness Extremities: No cyanosis, Other (1+ bilateral LE pitting edema) Skin: No breakdown, No significant lesion Labs LABS Laboratory Tests Test 02/08/18 04:35 White Blood Count 5.6 x10^3/uL (4.0-11.0) Red Blood Count 3.46 x10^6/uL (3.50-5.40) Hemoglobin 11.0 g/dL (12.0-15.5) Hematocrit 33.9 % (36.0-47.0) Mean Corpuscular Volume 98 fL (79-100) Mean Corpuscular Hemoglobin 32 pg (25-35) Mean Corpuscular Hemoglobin Concent 33 g/dL (31-37) Red Cell Distribution Width 14.3 % (11.5-14.5) Platelet Count 347 x10^3/uL (140-400) Neutrophils (%) (Auto) 67 % (31-73) Lymphocytes (%) (Auto) 19 % (24-48) Monocytes (%) (Auto) 11 % (0-9) Eosinophils (%) (Auto) 3 % (0-3) Basophils (%) (Auto) 0 % (0-3) Neutrophils # (Auto) 3.7 x10^3uL (1.8-7.7) Lymphocytes # (Auto) 1.1 x10^3/uL (1.0-4.8) Monocytes # (Auto) 0.6 x10^3/uL (0.0-1.1) Eosinophils # (Auto) 0.2 x10^3/uL (0.0-0.7) Basophils # (Auto) 0.0 x10^3/uL (0.0-0.2) Sodium Level 147 mmol/L (136-145) Potassium Level 4.0 mmol/L (3.5-5.1) Chloride Level 106 mmol/L (98-107) Carbon Dioxide Level 37 mmol/L (21-32) Anion Gap 4 (6-14) Blood Urea Nitrogen 6 mg/dL (7-20) Creatinine 0.6 mg/dL (0.6-1.0) Estimated GFR (Cockcroft-Gault) 101.3 Glucose Level 109 mg/dL (70-99) Calcium Level 9.2 mg/dL (8.5-10.1) Assessment and Plan Assessmemt and Plan Problems Medical Problems: (1) Respiratory failure Status: Acute Comment Review of Relevant I have reviewed the following items afshin (where applicable) has been applied. Labs Laboratory Tests Test 02/07/18 04:30 02/08/18 04:35 White Blood Count 5.7 x10^3/uL (4.0-11.0) 5.6 x10^3/uL (4.0-11.0) Red Blood Count 3.07 x10^6/uL (3.50-5.40) 3.46 x10^6/uL (3.50-5.40) Hemoglobin 9.9 g/dL (12.0-15.5) 11.0 g/dL (12.0-15.5) Hematocrit 29.9 % (36.0-47.0) 33.9 % (36.0-47.0) Mean Corpuscular Volume 98 fL (79-100) 98 fL (79-100) Mean Corpuscular Hemoglobin 32 pg (25-35) 32 pg (25-35) Mean Corpuscular Hemoglobin Concent 33 g/dL (31-37) 33 g/dL (31-37) Red Cell Distribution Width 14.4 % (11.5-14.5) 14.3 % (11.5-14.5) Platelet Count 288 x10^3/uL (140-400) 347 x10^3/uL (140-400) Neutrophils (%) (Auto) 68 % (31-73) 67 % (31-73) Lymphocytes (%) (Auto) 20 % (24-48) 19 % (24-48) Monocytes (%) (Auto) 10 % (0-9) 11 % (0-9) Eosinophils (%) (Auto) 2 % (0-3) 3 % (0-3) Basophils (%) (Auto) 0 % (0-3) 0 % (0-3) Neutrophils # (Auto) 3.9 x10^3uL (1.8-7.7) 3.7 x10^3uL (1.8-7.7) Lymphocytes # (Auto) 1.1 x10^3/uL (1.0-4.8) 1.1 x10^3/uL (1.0-4.8) Monocytes # (Auto) 0.6 x10^3/uL (0.0-1.1) 0.6 x10^3/uL (0.0-1.1) Eosinophils # (Auto) 0.1 x10^3/uL (0.0-0.7) 0.2 x10^3/uL (0.0-0.7) Basophils # (Auto) 0.0 x10^3/uL (0.0-0.2) 0.0 x10^3/uL (0.0-0.2) Sodium Level 149 mmol/L (136-145) 147 mmol/L (136-145) Potassium Level 3.7 mmol/L (3.5-5.1) 4.0 mmol/L (3.5-5.1) Chloride Level 107 mmol/L (98-107) 106 mmol/L (98-107) Carbon Dioxide Level 34 mmol/L (21-32) 37 mmol/L (21-32) Anion Gap 8 (6-14) 4 (6-14) Blood Urea Nitrogen 9 mg/dL (7-20) 6 mg/dL (7-20) Creatinine 0.7 mg/dL (0.6-1.0) 0.6 mg/dL (0.6-1.0) Estimated GFR (Cockcroft-Gault) 84.8 101.3 Glucose Level 107 mg/dL (70-99) 109 mg/dL (70-99) Calcium Level 8.7 mg/dL (8.5-10.1) 9.2 mg/dL (8.5-10.1) Laboratory Tests Test 02/08/18 04:35 White Blood Count 5.6 x10^3/uL (4.0-11.0) Red Blood Count 3.46 x10^6/uL (3.50-5.40) Hemoglobin 11.0 g/dL (12.0-15.5) Hematocrit 33.9 % (36.0-47.0) Mean Corpuscular Volume 98 fL (79-100) Mean Corpuscular Hemoglobin 32 pg (25-35) Mean Corpuscular Hemoglobin Concent 33 g/dL (31-37) Red Cell Distribution Width 14.3 % (11.5-14.5) Platelet Count 347 x10^3/uL (140-400) Neutrophils (%) (Auto) 67 % (31-73) Lymphocytes (%) (Auto) 19 % (24-48) Monocytes (%) (Auto) 11 % (0-9) Eosinophils (%) (Auto) 3 % (0-3) Basophils (%) (Auto) 0 % (0-3) Neutrophils # (Auto) 3.7 x10^3uL (1.8-7.7) Lymphocytes # (Auto) 1.1 x10^3/uL (1.0-4.8) Monocytes # (Auto) 0.6 x10^3/uL (0.0-1.1) Eosinophils # (Auto) 0.2 x10^3/uL (0.0-0.7) Basophils # (Auto) 0.0 x10^3/uL (0.0-0.2) Sodium Level 147 mmol/L (136-145) Potassium Level 4.0 mmol/L (3.5-5.1) Chloride Level 106 mmol/L (98-107) Carbon Dioxide Level 37 mmol/L (21-32) Anion Gap 4 (6-14) Blood Urea Nitrogen 6 mg/dL (7-20) Creatinine 0.6 mg/dL (0.6-1.0) Estimated GFR (Cockcroft-Gault) 101.3 Glucose Level 109 mg/dL (70-99) Calcium Level 9.2 mg/dL (8.5-10.1) Microbiology 02/03/18 Blood Culture - Preliminary, Resulted NO GROWTH AFTER 4 DAYS Medications Current Medications Propofol 50 ml @ As Directed STK-MED ONCE IV ; Start 02/03/18 at 18:03; Stop 02/03/18 at 18:04; Status DC Albuterol/ Ipratropium (Duoneb) 3 ml STK-MED ONCE .ROUTE ; Start 02/03/18 at 18 :05; Stop 02/03/18 at 18:06; Status DC Albuterol/ Ipratropium (Duoneb) 3 ml 1X ONCE NEB Last administered on at 18:20; Start 02/03/18 at 18:30; Stop 02/03/18 at 18:31; Status DC Albuterol/ Ipratropium (Duoneb) 3 ml 1X ONCE NEB ; Start 02/03/18 at 18:30; Stop 02/03/18 at 18:31; Status UNV Fentanyl Citrate 30 ml @ 0 mls/hr CONT PRN IV PER PROTOCOL Last administered on 02/04/18at 05:11; Start 02/03/18 at 18:30; Stop 02/06/18 at 13:17; Status DC Propofol 100 ml @ 0 mls/hr CONT PRN IV PER PROTOCOL Last administered on at 03:47; Start 02/03/18 at 18:30; Stop 02/06/18 at 13:18; Status DC Fentanyl Citrate (Fentanyl 2ml Vial) 25 mcg PRN Q1HR PRN IV MILD PAIN AND/OR RASS +1 OR +2; Start 02/03/18 at 18:30; Stop 02/06/18 at 13:20; Status DC Fentanyl Citrate (Fentanyl 2ml Vial) 50 mcg PRN Q1HR PRN IV MOD TO SEVERE PAIN / RASS +3 +4 Last administered on 02/05/18at 19:24; Start 02/03/18 at 18:30; Stop 02/06/18 at 13:20; Status DC Chlorhexidine Gluconate (Peridex) 15 ml BID MM ; Start 02/03/18 at 21:00; Stop 02/04/18 at 07:43; Status DC Norepinephrine Bitartrate 250 ml @ As Directed STK-MED ONCE IV ; Start at 18:41; Stop 02/03/18 at 18:42; Status DC Sodium Chloride 500 ml @ 500 mls/hr 1X ONCE IV Last administered on at 18:30; Start 02/03/18 at 19:00; Stop 02/03/18 at 19:59; Status DC Norepinephrine Bitartrate 250 ml @ 1.875 mls/ hr 1X ONCE IV Last administered on 02/03/18at 18:55; Start 02/03/18 at 19:00; Stop 02/06/18 at 13: 18; Status DC Etomidate (Amidate) 20 mg 1X ONCE IV Last administered on 02/03/18at 17:58; Start 02/03/18 at 19:00; Stop 02/03/18 at 19:02; Status DC Etomidate (Amidate) 20 mg 1X ONCE IV Last administered on 02/03/18at 18:03; Start 02/03/18 at 19:00; Stop 02/03/18 at 19:04; Status DC Succinylcholine Chloride (Anectine) 120 mg 1X ONCE IV Last administered on at 18:03; Start 02/03/18 at 19:00; Stop 02/03/18 at 19:01; Status DC Sodium Chloride 500 ml @ 500 mls/hr 1X ONCE IV ; Start 02/03/18 at 19:00; Stop 02/03/18 at 19:59; Status UNV Albuterol Sulfate (Ventolin Neb Soln) 10 mg 1X ONCE CONT NEB Last administered on 02/03/18at 19:22; Start 02/03/18 at 19:15; Stop 02/03/18 at 19 :16; Status DC Albuterol Sulfate (Ventolin Neb Soln) 2.5 mg STK-MED ONCE .ROUTE ; Start at 19:14; Stop 02/03/18 at 19:15; Status DC Fentanyl Citrate (Fentanyl 2ml Vial) 100 mcg STK-MED ONCE .ROUTE ; Start at 22:34; Stop 02/03/18 at 22:35; Status DC Piperacillin Sod/ Tazobactam Sod (Zosyn Per Pharmacy) 1 each PRN DAILY PRN MC SEE COMMENTS; Start 02/03/18 at 23:15; Stop 02/06/18 at 13:17; Status DC Albuterol Sulfate (Ventolin Neb Soln) 2.5 mg PRN Q2HR PRN NEB SHORTNESS OF BREATH; Start 02/03/18 at 23:15 Aspirin (Ecotrin) 81 mg DAILY PO Last administered on 02/07/18at 08:19; Start 02/04/18 at 09:00 Clopidogrel Bisulfate (Plavix) 75 mg DAILY PO Last administered on 02/07/18at 08 :20; Start 02/04/18 at 09:00 Famotidine (Pepcid) 20 mg BID PO ; Start 02/04/18 at 09:00; Stop 02/04/18 at 09:00; Status DC Ferrous Sulfate (Feosol) 325 mg DAILY PO Last administered on 02/07/18at 08:19; Start 02/04/18 at 09:00 Folic Acid (Folic Acid) 1 mg DAILY PO Last administered on 02/07/18at 08:20; Start 02/04/18 at 09:00 Albuterol/ Ipratropium (Duoneb) 3 ml RTQID NEB Last administered on 02/08/18at 07:32; Start 02/04/18 at 08:00 Isosorbide Mononitrate (Imdur) 60 mg DAILY PO Last administered on 02/07/18at 08 :18; Start 02/04/18 at 09:00 Lactobacillus Rhamnosus (Culturelle) 1 cap BID PO Last administered on at 20:34; Start 02/04/18 at 09:00 Fish Oil (Fish Oil) 1,000 mg BID PO Last administered on 02/07/18at 20:34; Start 02/04/18 at 09:00 Non-Formulary Medication (Omeprazole Magnesium (Prilosec Otc)) 20 mg DAILY PO ; Start 02/04/18 at 09:00; Status UNV Atorvastatin Calcium (Lipitor) 80 mg QHS PO Last administered on 02/07/18at 20: 34; Start 02/04/18 at 21:00 Pantoprazole Sodium (PROTONIX VIAL for IV PUSH) 40 mg DAILYAC IVP Last administered on 02/06/18at 05:19; Start 02/04/18 at 07:30; Stop 02/06/18 at 13: 21; Status DC Enoxaparin Sodium (Lovenox 40mg Syringe) 40 mg QHS SQ Last administered on 02/07at 20:33; Start 02/03/18 at 23:15 Pantoprazole Sodium (PROTONIX VIAL for IV PUSH) 40 mg 1X ONCE IVP ; Start at 00:00; Stop 02/03/18 at 00:01; Status Cancel Piperacillin Sod/ Tazobactam Sod 3.375 gm/Sodium Chloride 50 ml @ 100 mls/hr Q6HRS IV Last administered on 02/06/18at 05:15; Start 02/04/18 at 00:00; Stop 02/06/18 at 11:05; Status DC Sodium Chloride 1,000 ml @ 80 mls/hr [id number] IV Last administered on at 03:20; Start 02/03/18 at 23:45; Stop 02/05/18 at 11:12; Status DC Pantoprazole Sodium (PROTONIX VIAL for IV PUSH) 40 mg 1X ONCE IVP Last administered on 02/04/18at 00:44; Start 02/04/18 at 00:30; Stop 02/04/18 at 00 :31; Status DC Sodium Chloride 500 ml @ 500 mls/hr 1X ONCE IV Last administered on 03:47; Start 02/04/18 at 03:30; Stop 02/04/18 at 04:29; Status DC Pramipexole Dihydrochloride (miraPEX) 0.5 mg QHS PO Last administered on at 20:33; Start 02/04/18 at 21:00 Senna/Docusate Sodium (Senna Plus) 1 tab PRN BID PRN PO CONSTIPATION 2ND CHOICE Last administered on 02/05/18at 11:46; Start 02/05/18 at 11:15 Polyethylene Glycol (miraLAX PACKET) 17 gm PRN DAILY PRN PO CONSTIPATION 1ST CHOICE Last administered on 02/05/18 11:47; Start 02/05/18 at 11:15 Oxycodone HCl (Roxicodone) 10 mg TID PRN PRN PO PAIN Last administered on 08:19; Start 02/05/18 at 13:00; Stop 02/07/18 at 13:28; Status DC Potassium Chloride (Klor-Con) 40 meq 1X ONCE PO Last administered on 09:49; Start 02/06/18 at 08:15; Stop 02/06/18 at 08:16; Status DC Potassium Chloride (Klor-Con) 20 meq [id number] PO Last administered on 08:18; Start 02/07/18 at 08:00 Amoxicillin/ Clavulanate Potassium (Augmentin 875/ 125mg) 1 tab BID PO Last administered on 02/07/18at 20:34; Start 02/06/18 at 21:00 Pantoprazole Sodium (Protonix) 40 mg DAILYAC PO Last administered on 02/08/18 08:17; Start 02/07/18 at 07:30 Fluticasone Propionate (Flonase) 2 spray DAILY NS Last administered on 11:29; Start 02/07/18 at 11:00 Alprazolam (Xanax) 0.25 mg PRN Q8HRS PRN PO ANXIETY / AGITATION Last administered on 02/07/18 09:47; Start 02/07/18 at 09:30 Dicyclomine HCl (Bentyl) 10 mg [id number] PO Last administered on 02/07/18at 20:39 ; Start 02/07/18 at 14:00 Simethicone (Gas-X) 80 mg PRN Q4HRS PRN PO GAS / BLOATING; Start 02/07/18 at 13 :30 Atenolol (Tenormin) 25 mg DAILY PO Last administered on 02/07/18at 13:49; Start 02/07/18 at 14:00 Non-Formulary Medication (Fluticasone/ Salmeterol (Advair 250-50 Diskus)) 1 puff BID IH ; Start 02/07/18 at 21:00; Status UNV Gabapentin (Neurontin) 400 mg DAILY PO Last administered on 02/08/18at 08:15; Start 02/07/18 at 14:00 Meloxicam (Mobic) 7.5 mg DAILY PO Last administered on 02/08/18at 08:17; Start 02/07/18 at 14:00 Pramipexole Dihydrochloride (miraPEX) 0.5 mg HS PO ; Start 02/07/18 at 21:00; Stop 02/07/18 at 21:00; Status DC Guaifenesin (MUCINEX ER with DM) 1 tab BID PO Last administered on 02/07/18at 20 :34; Start 02/07/18 at 14:00 Oxycodone HCl (Roxicodone) 10 mg PRN Q6HRS PRN PO PAIN Last administered on 02/07/18at 15:36; Start 02/07/18 at 13:30 Gabapentin (Neurontin) 300 mg DAILY PO ; Start 02/08/18 at 09:00 Budesonide (Pulmicort) 0.5 mg BID NEB Last administered on 02/08/18at 07:32; Start 02/07/18 at 14:30 Albuterol Sulfate (Ventolin Neb Soln) 2.5 mg QID NEB ; Start 02/07/18 at 17:00 Active Scripts Active Prednisone 20 Mg Tablet 40 Mg PO DAILY Albuterol Sulfate Neb Soln (Albuterol Sulfate) 2.5 Mg/3 Ml Vial.neb 2.5 Mg NEB PRN Q2HR PRN 30 Days Advair 250-50 Diskus (Fluticasone/Salmeterol) 1 Each Disk.w.dev 1 Puff IH BID Reported Atenolol 25 Mg Tablet 1 Tab PO DAILY Dicyclomine Hcl 10 Mg Capsule 1 Cap PO PRN Gabapentin 400 Mg Capsule 700 Mg PO DAILY Simethicone 80 Mg Tab.chew 80 Mg PO PRN Duoneb 0.5-3(2.5) Mg/3 Ml (Albuterol/Ipratropium) 3 Ml Ampul.neb 3 Ml NEB QID Mirapex (Pramipexole Di-Hcl) 0.25 Mg Tablet 0.5 Mg PO HS Ferrous Sulfate 325 Mg Tablet 325 Mg PO DAILY Multivitamins (Multivitamin) 1 Each Capsule 1 Each PO Folic Acid 1 Mg Tablet 1 Tab PO DAILY Isosorbide Mononitrate 20 Mg Tablet 60 Mg PO DAILY Probiotic (Lactobacillus Combo No.11) 1 Each Cap.sprink 1 Each PO DAILY Fish Oil ([place]-3 Fatty Acids) 300 Mg Capsule 1,200 Mg PO BID Crestor (Rosuvastatin Calcium) 40 Mg Tablet 1 Tab PO DAILY Aspir 81 (Aspirin) 81 Mg Tablet.dr 1 Tab PO DAILY Plavix (Clopidogrel Bisulfate) 75 Mg Tablet 75 Mg PO DAILY Oxycodone Hcl 10 Mg Tablet 10 Mg PO QID PRN 10 Days Meloxicam 7.5 Mg Tablet 7.5 Mg PO DAILY Prilosec Otc (Omeprazole Magnesium) 20 Mg Tablet.dr 20 Mg PO DAILY Famotidine 20 Mg Tablet 20 Mg PO BID Vitals/I & O Vital Sign - Last 24 Hours 02/07/18 02/07/18 02/07/18 02/07/18 09:19 11:00 11:49 13:49 Temp 98.5 98.5 Pulse 110 110 Resp 18 B/P (MAP) 123/59 (80) 123/59 Pulse Ox 94 O2 Delivery BiPAP/CPAP Nasal Cannula Nasal Cannula O2 Flow Rate 4.0 4.0 02/07/18 02/07/18 02/07/18 02/07/18 15:00 15:36 16:23 16:36 Temp 97.7 97.7 B/P (MAP) 159/72 (101) Pulse Ox 93 O2 Delivery Nasal Cannula Nasal Cannula Nasal Cannula Nasal Cannula O2 Flow Rate 4.0 4.0 02/07/18 02/07/18 02/07/18 02/07/18 19:00 19:15 20:24 20:27 Temp 98.7 98.7 Pulse 73 Resp 18 B/P (MAP) 97/51 (66) Pulse Ox 91 96 O2 Delivery Nasal Cannula Nasal Cannula Nasal Cannula O2 Flow Rate 4.0 4.0 4.0 4.0 02/07/18 02/08/18 02/08/18 02/08/18 23:00 01:15 03:00 07:35 Temp 98.4 98.0 98.4 98.0 Pulse 83 93 Resp 18 18 B/P (MAP) 105/53 (70) 121/74 (90) Pulse Ox 94 93 96 O2 Delivery Nasal Cannula BiPAP/CPAP Nasal Cannula Nasal Cannula O2 Flow Rate 4.0 4.0 4.0 02/08/18 02/08/18 07:37 08:22 Pulse Ox 96 O2 Delivery Nasal Cannula O2 Flow Rate 4.0 4.0 Intake and Output 02/07/18 02/07/18 02/08/18 15:00 23:00 07:00 Intake Total 290 ml Balance 290 ml FAUSTO LEMUS MD Feb 08, 2018 09:07
[2018-02-08] MEDS: ISOSORBIDE MONONITRATE ER 30 MG TAB.ER.24H PO SCH (10:23)
[2018-02-08] MEDS: AMOXICILLIN/K CLAV 875/125MG TABLET. PO SCH ×2 (10:23→19:26)
[2018-02-08] MEDS: OMEGA-3 FATTY ACIDS/FISH OIL 1,000 MG CAPSULE. PO SCH ×2 (10:23→19:26)
[2018-02-08] MEDS: LACTOBACILLUS RHAMNOSUS GG 1 CAPSULE. PO SCH ×2 (10:23→19:26)
[2018-02-08] MEDS: ASPIRIN ENTERIC COATED 81 MG TABLET.DR. PO SCH (10:23)
[2018-02-08] MEDS: POTASSIUM CHLORIDE 20 MEQ TABLET.ER. PO SCH (10:23)
[2018-02-08] MEDS: GABAPENTIN 300 MG CAPSULE. PO SCH (10:23)
[2018-02-08] MEDS: CLOPIDOGREL BISULFATE 75 MG TABLET PO SCH (10:24)
[2018-02-08] MEDS: ALPRAZolam 0.25 MG TABLET PO PRN ×2 (10:24→17:49)
[2018-02-08] MEDS: ATENOLOL 25 MG TABLET. PO SCH (10:24)
[2018-02-08] MEDS: FLUTICASONE 50MCG/NASAL SPRAY 16GM BOTTLE. NS SCH (10:24)
[2018-02-08] MEDS: FOLIC ACID 1 MG TABLET. PO SCH (10:24)
[2018-02-08] MEDS: FERROUS SULFATE 325 MG TABLET. PO SCH (10:24)
[2018-02-08] MEDS: guaiFENesin DM 600/30MG 1 TAB TAB.ER.12H PO SCH ×2 (10:24→19:26)
[2018-02-08 11:00] VITALS: BP 96/53
--- NOTE | 2018-02-08 13:29 | PDOC ---
PULMONARY PROGRESS NOTES Subjective extubated 02/04 doing better post nasal drip better Vitals Vital Signs Date Time Temp Pulse Resp B/P (MAP) Pulse Ox O2 Delivery O2 Flow Rate FiO2 02/08/18 11:40 Nasal Cannula 4.0 02/08/18 11:00 98.0 75 18 96/53 (67) 97 98.0 General: Alert, No acute distress Lungs: Other (decrease bases) Cardiovascular: S1, S2 Abdomen: Soft, Non-tender Neuro Exam: Alert Extremities: No Edema Skin: Warm Labs Laboratory Tests Test 02/07/18 04:30 02/08/18 04:35 White Blood Count 5.7 x10^3/uL (4.0-11.0) 5.6 x10^3/uL (4.0-11.0) Red Blood Count 3.07 x10^6/uL (3.50-5.40) 3.46 x10^6/uL (3.50-5.40) Hemoglobin 9.9 g/dL (12.0-15.5) 11.0 g/dL (12.0-15.5) Hematocrit 29.9 % (36.0-47.0) 33.9 % (36.0-47.0) Mean Corpuscular Volume 98 fL (79-100) 98 fL (79-100) Mean Corpuscular Hemoglobin 32 pg (25-35) 32 pg (25-35) Mean Corpuscular Hemoglobin Concent 33 g/dL (31-37) 33 g/dL (31-37) Red Cell Distribution Width 14.4 % (11.5-14.5) 14.3 % (11.5-14.5) Platelet Count 288 x10^3/uL (140-400) 347 x10^3/uL (140-400) Neutrophils (%) (Auto) 68 % (31-73) 67 % (31-73) Lymphocytes (%) (Auto) 20 % (24-48) 19 % (24-48) Monocytes (%) (Auto) 10 % (0-9) 11 % (0-9) Eosinophils (%) (Auto) 2 % (0-3) 3 % (0-3) Basophils (%) (Auto) 0 % (0-3) 0 % (0-3) Neutrophils # (Auto) 3.9 x10^3uL (1.8-7.7) 3.7 x10^3uL (1.8-7.7) Lymphocytes # (Auto) 1.1 x10^3/uL (1.0-4.8) 1.1 x10^3/uL (1.0-4.8) Monocytes # (Auto) 0.6 x10^3/uL (0.0-1.1) 0.6 x10^3/uL (0.0-1.1) Eosinophils # (Auto) 0.1 x10^3/uL (0.0-0.7) 0.2 x10^3/uL (0.0-0.7) Basophils # (Auto) 0.0 x10^3/uL (0.0-0.2) 0.0 x10^3/uL (0.0-0.2) Sodium Level 149 mmol/L (136-145) 147 mmol/L (136-145) Potassium Level 3.7 mmol/L (3.5-5.1) 4.0 mmol/L (3.5-5.1) Chloride Level 107 mmol/L (98-107) 106 mmol/L (98-107) Carbon Dioxide Level 34 mmol/L (21-32) 37 mmol/L (21-32) Anion Gap 8 (6-14) 4 (6-14) Blood Urea Nitrogen 9 mg/dL (7-20) 6 mg/dL (7-20) Creatinine 0.7 mg/dL (0.6-1.0) 0.6 mg/dL (0.6-1.0) Estimated GFR (Cockcroft-Gault) 84.8 101.3 Glucose Level 107 mg/dL (70-99) 109 mg/dL (70-99) Calcium Level 8.7 mg/dL (8.5-10.1) 9.2 mg/dL (8.5-10.1) Laboratory Tests Test 02/08/18 04:35 White Blood Count 5.6 x10^3/uL (4.0-11.0) Red Blood Count 3.46 x10^6/uL (3.50-5.40) Hemoglobin 11.0 g/dL (12.0-15.5) Hematocrit 33.9 % (36.0-47.0) Mean Corpuscular Volume 98 fL (79-100) Mean Corpuscular Hemoglobin 32 pg (25-35) Mean Corpuscular Hemoglobin Concent 33 g/dL (31-37) Red Cell Distribution Width 14.3 % (11.5-14.5) Platelet Count 347 x10^3/uL (140-400) Neutrophils (%) (Auto) 67 % (31-73) Lymphocytes (%) (Auto) 19 % (24-48) Monocytes (%) (Auto) 11 % (0-9) Eosinophils (%) (Auto) 3 % (0-3) Basophils (%) (Auto) 0 % (0-3) Neutrophils # (Auto) 3.7 x10^3uL (1.8-7.7) Lymphocytes # (Auto) 1.1 x10^3/uL (1.0-4.8) Monocytes # (Auto) 0.6 x10^3/uL (0.0-1.1) Eosinophils # (Auto) 0.2 x10^3/uL (0.0-0.7) Basophils # (Auto) 0.0 x10^3/uL (0.0-0.2) Sodium Level 147 mmol/L (136-145) Potassium Level 4.0 mmol/L (3.5-5.1) Chloride Level 106 mmol/L (98-107) Carbon Dioxide Level 37 mmol/L (21-32) Anion Gap 4 (6-14) Blood Urea Nitrogen 6 mg/dL (7-20) Creatinine 0.6 mg/dL (0.6-1.0) Estimated GFR (Cockcroft-Gault) 101.3 Glucose Level 109 mg/dL (70-99) Calcium Level 9.2 mg/dL (8.5-10.1) Medications Active Scripts Medications Dose Route/Sig Max Daily Dose Days Date Category Prednisone 20 Mg Tablet 40 Mg PO DAILY 02/11/17 Rx Albuterol Sulfate Neb Soln (Albuterol Sulfate) 2.5 Mg/3 Ml Vial.neb 2.5 Mg NEB PRN Q2HR PRN 30 02/11/17 Rx Advair 250-50 Diskus (Fluticasone/Salmeterol) 1 Each Disk.w.dev 1 Puff IH BID 02/11/17 Rx Atenolol 25 Mg Tablet 1 Tab PO DAILY 02/10/17 Reported Dicyclomine Hcl 10 Mg Capsule 1 Cap PO PRN 02/09/17 Reported Gabapentin 400 Mg Capsule 700 Mg PO DAILY 02/09/17 Reported Simethicone 80 Mg Tab.chew 80 Mg PO PRN 02/09/17 Reported Duoneb 0.5-3(2.5) Mg/3 Ml (Albuterol/Ipratropium) 3 Ml Ampul.neb 3 Ml NEB QID 02/09/17 Reported Mirapex (Pramipexole Di-Hcl) 0.25 Mg Tablet 0.5 Mg PO HS 02/09/17 Reported Ferrous Sulfate 325 Mg Tablet 325 Mg PO DAILY 12/04/16 Reported Multivitamins (Multivitamin) 1 Each Capsule 1 Each PO 05/30/16 Reported Folic Acid 1 Mg Tablet 1 Tab PO DAILY 05/30/16 Reported Isosorbide Mononitrate 20 Mg Tablet 60 Mg PO DAILY 05/30/16 Reported Probiotic (Lactobacillus Combo No.11) 1 Each Cap.sprink 1 Each PO DAILY 05/30/16 Reported Fish Oil ([place]-3 Fatty Acids) 300 Mg Capsule 1,200 Mg PO BID 05/30/16 Reported Crestor (Rosuvastatin Calcium) 40 Mg Tablet 1 Tab PO DAILY 05/30/16 Reported Aspir 81 (Aspirin) 81 Mg Tablet.dr 1 Tab PO DAILY 05/30/16 Reported Plavix (Clopidogrel Bisulfate) 75 Mg Tablet 75 Mg PO DAILY 02/28/16 Reported Oxycodone Hcl 10 Mg Tablet 10 Mg PO PRN TID PRN 02/28/16 Reported Meloxicam 7.5 Mg Tablet 7.5 Mg PO DAILY 02/28/16 Reported Prilosec Otc (Omeprazole Magnesium) 20 Mg Tablet.dr 20 Mg PO DAILY 02/28/16 Reported Famotidine 20 Mg Tablet 20 Mg PO BID 02/28/16 Reported Impression . 1. [id number] hypercapnic respiratory failure secondary to acute exacerbation of chronic obstructive pulmonary disease. extubated 02/05 2. 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 3. Acute toxic encephalopathy secondary to severe hypercarbia. resolved. 4. No definite consolidation seen on the chest x-ray with mildly prominent interstitial markings. 5. History of percutaneous coronary intervention. 6. Post nasal drip 7. Anxiety disorder Plan . 1. nasal canula. BIPAP qhs and prn 2. ABGs improved 3. Continue bronchodilators. 4. PO antibiotics 5. DVT prophylaxis. 6. oral nutrition 7. Discussed with RN 8. nasal spray 9. Xanax prn slow to improve. dc home in few days. PRERNA CALHOUN MD Feb 08, 2018 13:29
[2018-02-08 15:00] VITALS: BP 99/54
[2018-02-08] MEDS: oxyCODONE IR 5 MG TABLET PO PRN (18:30)
[2018-02-08 19:00] VITALS: BP 108/50
[2018-02-08] MEDS: PRAMIPEXOLE 1 MG TABLET. PO SCH (19:26)
[2018-02-08] MEDS: ATORVASTATIN CALCIUM 40 MG TABLET. PO SCH (19:26)
[2018-02-08] MEDS: ENOXAPARIN 40 MG/0.4 ML SYRINGE. SQ SCH (19:27)
[2018-02-08 22:56] VITALS: BP 126/60
[2018-02-09 03:00] VITALS: BP 148/79
[2018-02-09] MEDS: oxyCODONE IR 5 MG TABLET PO PRN ×3 (03:44→22:43)
[2018-02-09 05:12] LABS: BASO % 0 % (0-3); EOS # 0.2 x10^3/uL (0.0-0.7); EOS % 3 % (0-3); HEMATOCRIT 34.2 % (36.0-47.0); LYMPH # 1.1 x10^3/uL (1.0-4.8); LYMPH % 18 % (24-48); MEAN CORPUSCULAR HEMOGLOBIN 32 pg (25-35); MEAN CORPUSCULAR HGB CONC 32 g/dL (31-37); MEAN CORPUSCULAR VOLUME 98 fL (79-100); MONO # 0.8 x10^3/uL (0.0-1.1); MONO % 12 % (0-9); NEUT # 4.3 x10^3uL (1.8-7.7); NEUT % 67 % (31-73); PLATELET COUNT 357 x10^3/uL (140-400); RED BLOOD COUNT 3.48 x10^6/uL (3.50-5.40); RED CELL DISTRIBUTION WIDTH 14.5 % (11.5-14.5); WHITE BLOOD COUNT 6.4 x10^3/uL (4.0-11.0)
[2018-02-09 05:25] LABS: CREATININE 0.6 mg/dL (0.6-1.0); GFR 101.3
[2018-02-09 07:00] VITALS: BP 165/63
[2018-02-09] MEDS: POTASSIUM CHLORIDE 20 MEQ TABLET.ER. PO SCH ×2 (08:00→09:19)
[2018-02-09] MEDS: BUDESONIDE 0.5 MG/2 ML NEBU. NEB SCH ×2 (08:47→19:37)
[2018-02-09] MEDS: IPRATRPIUM/ALBUTEROL 0.5/2.5MG 3 ML NEBU. NEB SCH ×4 (08:47→19:36)
[2018-02-09] MEDS ORDERED: AMOX1TAB11 PO (08:57)
[2018-02-09] MEDS ORDERED: GUAI-108 PO (08:57)
[2018-02-09] MEDS ORDERED: ALPR0.254 PO (08:57)
[2018-02-09] MEDS ORDERED: FLUT16SP NS (08:57)
[2018-02-09] MEDS ORDERED: BUDE0.5A NEB (08:57)
[2018-02-09] MEDS: ALBUTEROL SULFATE 2.5 MG/3 ML NEBU. NEB SCH ×4 (09:00→21:00)
[2018-02-09] MEDS: GABAPENTIN 400 MG CAPSULE. PO SCH (09:16)
[2018-02-09] MEDS: GABAPENTIN 300 MG CAPSULE. PO SCH (09:16)
[2018-02-09] MEDS: AMOXICILLIN/K CLAV 875/125MG TABLET. PO SCH ×2 (09:17→20:37)
[2018-02-09] MEDS: guaiFENesin DM 600/30MG 1 TAB TAB.ER.12H PO SCH ×2 (09:17→20:37)
[2018-02-09] MEDS: CLOPIDOGREL BISULFATE 75 MG TABLET PO SCH (09:17)
[2018-02-09] MEDS: OMEGA-3 FATTY ACIDS/FISH OIL 1,000 MG CAPSULE. PO SCH ×2 (09:17→20:37)
[2018-02-09] MEDS: MELOXICAM 7.5 MG TABLET PO SCH (09:18)
[2018-02-09] MEDS: ATENOLOL 25 MG TABLET. PO SCH (09:18)
[2018-02-09] MEDS: FOLIC ACID 1 MG TABLET. PO SCH (09:18)
[2018-02-09] MEDS: LACTOBACILLUS RHAMNOSUS GG 1 CAPSULE. PO SCH ×2 (09:19→20:37)
[2018-02-09] MEDS: FERROUS SULFATE 325 MG TABLET. PO SCH (09:19)
[2018-02-09] MEDS: ASPIRIN ENTERIC COATED 81 MG TABLET.DR. PO SCH (09:19)
[2018-02-09] MEDS: ISOSORBIDE MONONITRATE ER 30 MG TAB.ER.24H PO SCH (09:20)
[2018-02-09] MEDS: PANTOPRAZOLE 40 MG TABLET.DR. PO SCH (09:20)
--- NOTE | 2018-02-09 10:00 | PDOC ---
PULMONARY PROGRESS NOTES Subjective extubated 02/04 NO RESP DISTRESS Vitals Vital Signs Date Time Temp Pulse Resp B/P (MAP) Pulse Ox O2 Delivery O2 Flow Rate FiO2 02/09/18 09:20 99 165/63 02/09/18 08:49 92 Nasal Cannula 5.0 02/09/18 07:00 98.2 22 98.2 General: Alert, No acute distress Lungs: Other (decrease bases) Cardiovascular: S1, S2 Abdomen: Soft, Non-tender Neuro Exam: Alert Extremities: No Edema Skin: Warm Labs Laboratory Tests Test 02/08/18 04:35 02/09/18 04:30 White Blood Count 5.6 x10^3/uL (4.0-11.0) 6.4 x10^3/uL (4.0-11.0) Red Blood Count 3.46 x10^6/uL (3.50-5.40) 3.48 x10^6/uL (3.50-5.40) Hemoglobin 11.0 g/dL (12.0-15.5) 11.0 g/dL (12.0-15.5) Hematocrit 33.9 % (36.0-47.0) 34.2 % (36.0-47.0) Mean Corpuscular Volume 98 fL (79-100) 98 fL (79-100) Mean Corpuscular Hemoglobin 32 pg (25-35) 32 pg (25-35) Mean Corpuscular Hemoglobin Concent 33 g/dL (31-37) 32 g/dL (31-37) Red Cell Distribution Width 14.3 % (11.5-14.5) 14.5 % (11.5-14.5) Platelet Count 347 x10^3/uL (140-400) 357 x10^3/uL (140-400) Neutrophils (%) (Auto) 67 % (31-73) 67 % (31-73) Lymphocytes (%) (Auto) 19 % (24-48) 18 % (24-48) Monocytes (%) (Auto) 11 % (0-9) 12 % (0-9) Eosinophils (%) (Auto) 3 % (0-3) 3 % (0-3) Basophils (%) (Auto) 0 % (0-3) 0 % (0-3) Neutrophils # (Auto) 3.7 x10^3uL (1.8-7.7) 4.3 x10^3uL (1.8-7.7) Lymphocytes # (Auto) 1.1 x10^3/uL (1.0-4.8) 1.1 x10^3/uL (1.0-4.8) Monocytes # (Auto) 0.6 x10^3/uL (0.0-1.1) 0.8 x10^3/uL (0.0-1.1) Eosinophils # (Auto) 0.2 x10^3/uL (0.0-0.7) 0.2 x10^3/uL (0.0-0.7) Basophils # (Auto) 0.0 x10^3/uL (0.0-0.2) 0.0 x10^3/uL (0.0-0.2) Sodium Level 147 mmol/L (136-145) 148 mmol/L (136-145) Potassium Level 4.0 mmol/L (3.5-5.1) 4.0 mmol/L (3.5-5.1) Chloride Level 106 mmol/L (98-107) 104 mmol/L (98-107) Carbon Dioxide Level 37 mmol/L (21-32) 40 mmol/L (21-32) Anion Gap 4 (6-14) 4 (6-14) Blood Urea Nitrogen 6 mg/dL (7-20) 8 mg/dL (7-20) Creatinine 0.6 mg/dL (0.6-1.0) 0.6 mg/dL (0.6-1.0) Estimated GFR (Cockcroft-Gault) 101.3 101.3 Glucose Level 109 mg/dL (70-99) 103 mg/dL (70-99) Calcium Level 9.2 mg/dL (8.5-10.1) 9.0 mg/dL (8.5-10.1) Laboratory Tests Test 02/09/18 04:30 White Blood Count 6.4 x10^3/uL (4.0-11.0) Red Blood Count 3.48 x10^6/uL (3.50-5.40) Hemoglobin 11.0 g/dL (12.0-15.5) Hematocrit 34.2 % (36.0-47.0) Mean Corpuscular Volume 98 fL (79-100) Mean Corpuscular Hemoglobin 32 pg (25-35) Mean Corpuscular Hemoglobin Concent 32 g/dL (31-37) Red Cell Distribution Width 14.5 % (11.5-14.5) Platelet Count 357 x10^3/uL (140-400) Neutrophils (%) (Auto) 67 % (31-73) Lymphocytes (%) (Auto) 18 % (24-48) Monocytes (%) (Auto) 12 % (0-9) Eosinophils (%) (Auto) 3 % (0-3) Basophils (%) (Auto) 0 % (0-3) Neutrophils # (Auto) 4.3 x10^3uL (1.8-7.7) Lymphocytes # (Auto) 1.1 x10^3/uL (1.0-4.8) Monocytes # (Auto) 0.8 x10^3/uL (0.0-1.1) Eosinophils # (Auto) 0.2 x10^3/uL (0.0-0.7) Basophils # (Auto) 0.0 x10^3/uL (0.0-0.2) Sodium Level 148 mmol/L (136-145) Potassium Level 4.0 mmol/L (3.5-5.1) Chloride Level 104 mmol/L (98-107) Carbon Dioxide Level 40 mmol/L (21-32) Anion Gap 4 (6-14) Blood Urea Nitrogen 8 mg/dL (7-20) Creatinine 0.6 mg/dL (0.6-1.0) Estimated GFR (Cockcroft-Gault) 101.3 Glucose Level 103 mg/dL (70-99) Calcium Level 9.0 mg/dL (8.5-10.1) Medications Active Scripts Medications Dose Route/Sig Max Daily Dose Days Date Category Prednisone 20 Mg Tablet 40 Mg PO DAILY 02/11/17 Rx Albuterol Sulfate Neb Soln (Albuterol Sulfate) 2.5 Mg/3 Ml Vial.neb 2.5 Mg NEB PRN Q2HR PRN 30 02/11/17 Rx Advair 250-50 Diskus (Fluticasone/Salmeterol) 1 Each Disk.w.dev 1 Puff IH BID 02/11/17 Rx Atenolol 25 Mg Tablet 1 Tab PO DAILY 02/10/17 Reported Dicyclomine Hcl 10 Mg Capsule 1 Cap PO PRN 02/09/17 Reported Gabapentin 400 Mg Capsule 700 Mg PO DAILY 02/09/17 Reported Simethicone 80 Mg Tab.chew 80 Mg PO PRN 02/09/17 Reported Duoneb 0.5-3(2.5) Mg/3 Ml (Albuterol/Ipratropium) 3 Ml Ampul.neb 3 Ml NEB QID 02/09/17 Reported Mirapex (Pramipexole Di-Hcl) 0.25 Mg Tablet 0.5 Mg PO HS 02/09/17 Reported Ferrous Sulfate 325 Mg Tablet 325 Mg PO DAILY 12/04/16 Reported Multivitamins (Multivitamin) 1 Each Capsule 1 Each PO 05/30/16 Reported Folic Acid 1 Mg Tablet 1 Tab PO DAILY 05/30/16 Reported Isosorbide Mononitrate 20 Mg Tablet 60 Mg PO DAILY 05/30/16 Reported Probiotic (Lactobacillus Combo No.11) 1 Each Cap.sprink 1 Each PO DAILY 05/30/16 Reported Fish Oil ([place]-3 Fatty Acids) 300 Mg Capsule 1,200 Mg PO BID 05/30/16 Reported Crestor (Rosuvastatin Calcium) 40 Mg Tablet 1 Tab PO DAILY 05/30/16 Reported Aspir 81 (Aspirin) 81 Mg Tablet.dr 1 Tab PO DAILY 05/30/16 Reported Plavix (Clopidogrel Bisulfate) 75 Mg Tablet 75 Mg PO DAILY 02/28/16 Reported Oxycodone Hcl 10 Mg Tablet 10 Mg PO PRN TID PRN 02/28/16 Reported Meloxicam 7.5 Mg Tablet 7.5 Mg PO DAILY 02/28/16 Reported Prilosec Otc (Omeprazole Magnesium) 20 Mg Tablet.dr 20 Mg PO DAILY 02/28/16 Reported Famotidine 20 Mg Tablet 20 Mg PO BID 02/28/16 Reported Impression . 1. Nftar-wy-bhneyyy hypercapnic respiratory failure secondary to acute exacerbation of chronic obstructive pulmonary disease. extubated 02/05 2. 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 3. Acute toxic encephalopathy secondary to severe hypercarbia. resolved. 4. No definite consolidation seen on the chest x-ray with mildly prominent interstitial markings. 5. History of percutaneous coronary intervention. 6. Post nasal drip 7. Anxiety disorder Plan . PT DOING BETTER OK TO D/C SOON INFORMED PT SHE NEEDS TO LOOSE WEIGHT AND PERFORM PULM REHAB PT CONCERNED ABOUT HER LOW SAT AT TIMES WILL OBTAIN ABG IN PRETTY GARCIA MD Feb 09, 2018 10:00
--- NOTE | 2018-02-09 10:51 | PDOC ---
PROGRESS NOTES Chief Complaint Chief Complaint Acute on chronic respiratory failure with underlying AECOPD/pulmonary HTN Suspect chronic diastolic CHF: No acute CHF. pro NT BNP at 92 Dyspnea due to severe COPD Hypotension: likely from sedation CAD: reactive sinus tach, no ectopies HTN HLD Hypercapnic encephalopathy severe lower [place] pain POA History of Present Illness History of Present Illness Extubated 02/04 Was only intubated overnight This is her second intubation, she was intubated at [facility] maybe for 3 days within the last year Has been in LTAC-interested in LTAC again When I walked into the room, she was stooping forward, SOA, and some nonspecific back pain and abdominal pain Discussed with , is interested in LTAC Not smoking anymore for a year Plan: Discussed with social work, LTAC screen Slow recovery Change Xanax to lorazepam per her request Trial of Lidoderm patch to the back Discussed with RN Vitals Vitals Vital Signs Date Time Temp Pulse Resp B/P (MAP) Pulse Ox O2 Delivery O2 Flow Rate FiO2 02/09/18 09:20 99 165/63 02/09/18 08:49 92 Nasal Cannula 5.0 02/09/18 07:00 98.2 22 98.2 Physical Exam General: Alert, Oriented X3, Cooperative, No acute distress, moderate distress , Other (intubated, but looking around) Heart: Regular rate (sinus tach), Normal S1, Other (distant heart sounds) Lungs: Other (decrease bases) Abdomen: Normal bowel sounds, Soft, No tenderness Extremities: No cyanosis, Other (1+ bilateral LE pitting edema) Skin: No breakdown, No significant lesion Labs LABS Laboratory Tests Test 02/09/18 04:30 White Blood Count 6.4 x10^3/uL (4.0-11.0) Red Blood Count 3.48 x10^6/uL (3.50-5.40) Hemoglobin 11.0 g/dL (12.0-15.5) Hematocrit 34.2 % (36.0-47.0) Mean Corpuscular Volume 98 fL (79-100) Mean Corpuscular Hemoglobin 32 pg (25-35) Mean Corpuscular Hemoglobin Concent 32 g/dL (31-37) Red Cell Distribution Width 14.5 % (11.5-14.5) Platelet Count 357 x10^3/uL (140-400) Neutrophils (%) (Auto) 67 % (31-73) Lymphocytes (%) (Auto) 18 % (24-48) Monocytes (%) (Auto) 12 % (0-9) Eosinophils (%) (Auto) 3 % (0-3) Basophils (%) (Auto) 0 % (0-3) Neutrophils # (Auto) 4.3 x10^3uL (1.8-7.7) Lymphocytes # (Auto) 1.1 x10^3/uL (1.0-4.8) Monocytes # (Auto) 0.8 x10^3/uL (0.0-1.1) Eosinophils # (Auto) 0.2 x10^3/uL (0.0-0.7) Basophils # (Auto) 0.0 x10^3/uL (0.0-0.2) Sodium Level 148 mmol/L (136-145) Potassium Level 4.0 mmol/L (3.5-5.1) Chloride Level 104 mmol/L (98-107) Carbon Dioxide Level 40 mmol/L (21-32) Anion Gap 4 (6-14) Blood Urea Nitrogen 8 mg/dL (7-20) Creatinine 0.6 mg/dL (0.6-1.0) Estimated GFR (Cockcroft-Gault) 101.3 Glucose Level 103 mg/dL (70-99) Calcium Level 9.0 mg/dL (8.5-10.1) Review of Systems Review of Systems weak, Back pain, abdominal pain, weak, SOA, no increase in phlegm or chest pain Assessment and Plan Assessmemt and Plan Problems Medical Problems: (1) Respiratory failure Status: Acute Comment Review of Relevant I have reviewed the following items afshin (where applicable) has been applied. Labs Laboratory Tests Test 02/08/18 04:35 02/09/18 04:30 White Blood Count 5.6 x10^3/uL (4.0-11.0) 6.4 x10^3/uL (4.0-11.0) Red Blood Count 3.46 x10^6/uL (3.50-5.40) 3.48 x10^6/uL (3.50-5.40) Hemoglobin 11.0 g/dL (12.0-15.5) 11.0 g/dL (12.0-15.5) Hematocrit 33.9 % (36.0-47.0) 34.2 % (36.0-47.0) Mean Corpuscular Volume 98 fL (79-100) 98 fL (79-100) Mean Corpuscular Hemoglobin 32 pg (25-35) 32 pg (25-35) Mean Corpuscular Hemoglobin Concent 33 g/dL (31-37) 32 g/dL (31-37) Red Cell Distribution Width 14.3 % (11.5-14.5) 14.5 % (11.5-14.5) Platelet Count 347 x10^3/uL (140-400) 357 x10^3/uL (140-400) Neutrophils (%) (Auto) 67 % (31-73) 67 % (31-73) Lymphocytes (%) (Auto) 19 % (24-48) 18 % (24-48) Monocytes (%) (Auto) 11 % (0-9) 12 % (0-9) Eosinophils (%) (Auto) 3 % (0-3) 3 % (0-3) Basophils (%) (Auto) 0 % (0-3) 0 % (0-3) Neutrophils # (Auto) 3.7 x10^3uL (1.8-7.7) 4.3 x10^3uL (1.8-7.7) Lymphocytes # (Auto) 1.1 x10^3/uL (1.0-4.8) 1.1 x10^3/uL (1.0-4.8) Monocytes # (Auto) 0.6 x10^3/uL (0.0-1.1) 0.8 x10^3/uL (0.0-1.1) Eosinophils # (Auto) 0.2 x10^3/uL (0.0-0.7) 0.2 x10^3/uL (0.0-0.7) Basophils # (Auto) 0.0 x10^3/uL (0.0-0.2) 0.0 x10^3/uL (0.0-0.2) Sodium Level 147 mmol/L (136-145) 148 mmol/L (136-145) Potassium Level 4.0 mmol/L (3.5-5.1) 4.0 mmol/L (3.5-5.1) Chloride Level 106 mmol/L (98-107) 104 mmol/L (98-107) Carbon Dioxide Level 37 mmol/L (21-32) 40 mmol/L (21-32) Anion Gap 4 (6-14) 4 (6-14) Blood Urea Nitrogen 6 mg/dL (7-20) 8 mg/dL (7-20) Creatinine 0.6 mg/dL (0.6-1.0) 0.6 mg/dL (0.6-1.0) Estimated GFR (Cockcroft-Gault) 101.3 101.3 Glucose Level 109 mg/dL (70-99) 103 mg/dL (70-99) Calcium Level 9.2 mg/dL (8.5-10.1) 9.0 mg/dL (8.5-10.1) Laboratory Tests Test 02/09/18 04:30 White Blood Count 6.4 x10^3/uL (4.0-11.0) Red Blood Count 3.48 x10^6/uL (3.50-5.40) Hemoglobin 11.0 g/dL (12.0-15.5) Hematocrit 34.2 % (36.0-47.0) Mean Corpuscular Volume 98 fL (79-100) Mean Corpuscular Hemoglobin 32 pg (25-35) Mean Corpuscular Hemoglobin Concent 32 g/dL (31-37) Red Cell Distribution Width 14.5 % (11.5-14.5) Platelet Count 357 x10^3/uL (140-400) Neutrophils (%) (Auto) 67 % (31-73) Lymphocytes (%) (Auto) 18 % (24-48) Monocytes (%) (Auto) 12 % (0-9) Eosinophils (%) (Auto) 3 % (0-3) Basophils (%) (Auto) 0 % (0-3) Neutrophils # (Auto) 4.3 x10^3uL (1.8-7.7) Lymphocytes # (Auto) 1.1 x10^3/uL (1.0-4.8) Monocytes # (Auto) 0.8 x10^3/uL (0.0-1.1) Eosinophils # (Auto) 0.2 x10^3/uL (0.0-0.7) Basophils # (Auto) 0.0 x10^3/uL (0.0-0.2) Sodium Level 148 mmol/L (136-145) Potassium Level 4.0 mmol/L (3.5-5.1) Chloride Level 104 mmol/L (98-107) Carbon Dioxide Level 40 mmol/L (21-32) Anion Gap 4 (6-14) Blood Urea Nitrogen 8 mg/dL (7-20) Creatinine 0.6 mg/dL (0.6-1.0) Estimated GFR (Cockcroft-Gault) 101.3 Glucose Level 103 mg/dL (70-99) Calcium Level 9.0 mg/dL (8.5-10.1) Microbiology 02/03/18 Blood Culture - Final, Complete NO GROWTH AFTER 5 DAYS Medications Current Medications Propofol 50 ml @ As Directed STK-MED ONCE IV ; Start 02/03/18 at 18:03; Stop 02/03/18 at 18:04; Status DC Albuterol/ Ipratropium (Duoneb) 3 ml STK-MED ONCE .ROUTE ; Start 02/03/18 at 18 :05; Stop 02/03/18 at 18:06; Status DC Albuterol/ Ipratropium (Duoneb) 3 ml 1X ONCE NEB Last administered on at 18:20; Start 02/03/18 at 18:30; Stop 02/03/18 at 18:31; Status DC Albuterol/ Ipratropium (Duoneb) 3 ml 1X ONCE NEB ; Start 02/03/18 at 18:30; Stop 02/03/18 at 18:31; Status UNV Fentanyl Citrate 30 ml @ 0 mls/hr CONT PRN IV PER PROTOCOL Last administered on 02/04/18at 05:11; Start 02/03/18 at 18:30; Stop 02/06/18 at 13:17; Status DC Propofol 100 ml @ 0 mls/hr CONT PRN IV PER PROTOCOL Last administered on at 03:47; Start 02/03/18 at 18:30; Stop 02/06/18 at 13:18; Status DC Fentanyl Citrate (Fentanyl 2ml Vial) 25 mcg PRN Q1HR PRN IV MILD PAIN AND/OR RASS +1 OR +2; Start 02/03/18 at 18:30; Stop 02/06/18 at 13:20; Status DC Fentanyl Citrate (Fentanyl 2ml Vial) 50 mcg PRN Q1HR PRN IV MOD TO SEVERE PAIN / RASS +3 +4 Last administered on 02/05/18at 19:24; Start 02/03/18 at 18:30; Stop 02/06/18 at 13:20; Status DC Chlorhexidine Gluconate (Peridex) 15 ml BID MM ; Start 02/03/18 at 21:00; Stop 02/04/18 at 07:43; Status DC Norepinephrine Bitartrate 250 ml @ As Directed STK-MED ONCE IV ; Start at 18:41; Stop 02/03/18 at 18:42; Status DC Sodium Chloride 500 ml @ 500 mls/hr 1X ONCE IV Last administered on at 18:30; Start 02/03/18 at 19:00; Stop 02/03/18 at 19:59; Status DC Norepinephrine Bitartrate 250 ml @ 1.875 mls/ hr 1X ONCE IV Last administered on 02/03/18at 18:55; Start 02/03/18 at 19:00; Stop 02/06/18 at 13: 18; Status DC Etomidate (Amidate) 20 mg 1X ONCE IV Last administered on 02/03/18at 17:58; Start 02/03/18 at 19:00; Stop 02/03/18 at 19:02; Status DC Etomidate (Amidate) 20 mg 1X ONCE IV Last administered on 02/03/18at 18:03; Start 02/03/18 at 19:00; Stop 02/03/18 at 19:04; Status DC Succinylcholine Chloride (Anectine) 120 mg 1X ONCE IV Last administered on at 18:03; Start 02/03/18 at 19:00; Stop 02/03/18 at 19:01; Status DC Sodium Chloride 500 ml @ 500 mls/hr 1X ONCE IV ; Start 02/03/18 at 19:00; Stop 02/03/18 at 19:59; Status UNV Albuterol Sulfate (Ventolin Neb Soln) 10 mg 1X ONCE CONT NEB Last administered on 02/03/18at 19:22; Start 02/03/18 at 19:15; Stop 02/03/18 at 19 :16; Status DC Albuterol Sulfate (Ventolin Neb Soln) 2.5 mg STK-MED ONCE .ROUTE ; Start at 19:14; Stop 02/03/18 at 19:15; Status DC Fentanyl Citrate (Fentanyl 2ml Vial) 100 mcg STK-MED ONCE .ROUTE ; Start at 22:34; Stop 02/03/18 at 22:35; Status DC Piperacillin Sod/ Tazobactam Sod (Zosyn Per Pharmacy) 1 each PRN DAILY PRN MC SEE COMMENTS; Start 02/03/18 at 23:15; Stop 02/06/18 at 13:17; Status DC Albuterol Sulfate (Ventolin Neb Soln) 2.5 mg PRN Q2HR PRN NEB SHORTNESS OF BREATH; Start 02/03/18 at 23:15 Aspirin (Ecotrin) 81 mg DAILY PO Last administered on 02/09/18at 09:19; Start 02/04/18 at 09:00 Clopidogrel Bisulfate (Plavix) 75 mg DAILY PO Last administered on 02/09/18at 09 :17; Start 02/04/18 at 09:00 Famotidine (Pepcid) 20 mg BID PO ; Start 02/04/18 at 09:00; Stop 02/04/18 at 09:00; Status DC Ferrous Sulfate (Feosol) 325 mg DAILY PO Last administered on 02/09/18at 09:19; Start 02/04/18 at 09:00 Folic Acid (Folic Acid) 1 mg DAILY PO Last administered on 02/09/18at 09:18; Start 02/04/18 at 09:00 Albuterol/ Ipratropium (Duoneb) 3 ml RTQID NEB Last administered on 02/09/18at 08:47; Start 02/04/18 at 08:00 Isosorbide Mononitrate (Imdur) 60 mg DAILY PO Last administered on 02/09/18at 09 :20; Start 02/04/18 at 09:00 Lactobacillus Rhamnosus (Culturelle) 1 cap BID PO Last administered on at 09:19; Start 02/04/18 at 09:00 Fish Oil (Fish Oil) 1,000 mg BID PO Last administered on 11/5/18at 09:17; Start 02/04/18 at 09:00 Non-Formulary Medication (Omeprazole Magnesium (Prilosec Otc)) 20 mg DAILY PO ; Start 02/04/18 at 09:00; Status UNV Atorvastatin Calcium (Lipitor) 80 mg QHS PO Last administered on 02/08/18at 19: 26; Start 02/04/18 at 21:00 Pantoprazole Sodium (PROTONIX VIAL for IV PUSH) 40 mg DAILYAC IVP Last administered on 02/06/18at 05:19; Start 02/04/18 at 07:30; Stop 02/06/18 at 13: 21; Status DC Enoxaparin Sodium (Lovenox 40mg Syringe) 40 mg QHS SQ Last administered on 02/08at 19:27; Start 02/03/18 at 23:15 Pantoprazole Sodium (PROTONIX VIAL for IV PUSH) 40 mg 1X ONCE IVP ; Start at 00:00; Stop 02/03/18 at 00:01; Status Cancel Piperacillin Sod/ Tazobactam Sod 3.375 gm/Sodium Chloride 50 ml @ 100 mls/hr Q6HRS IV Last administered on 02/06/18at 05:15; Start 02/04/18 at 00:00; Stop 02/06/18 at 11:05; Status DC Sodium Chloride 1,000 ml @ 80 mls/hr [id number] IV Last administered on at 03:20; Start 02/03/18 at 23:45; Stop 02/05/18 at 11:12; Status DC Pantoprazole Sodium (PROTONIX VIAL for IV PUSH) 40 mg 1X ONCE IVP Last administered on 02/04/18at 00:44; Start 02/04/18 at 00:30; Stop 02/04/18 at 00 :31; Status DC Sodium Chloride 500 ml @ 500 mls/hr 1X ONCE IV Last administered on at 03:47; Start 02/04/18 at 03:30; Stop 02/04/18 at 04:29; Status DC Pramipexole Dihydrochloride (miraPEX) 0.5 mg QHS PO Last administered on at 19:26; Start 02/04/18 at 21:00 Senna/Docusate Sodium (Senna Plus) 1 tab PRN BID PRN PO CONSTIPATION 2ND CHOICE Last administered on 02/05/18 11:46; Start 02/05/18 at 11:15 Polyethylene Glycol (miraLAX PACKET) 17 gm PRN DAILY PRN PO CONSTIPATION 1ST CHOICE Last administered on 02/05/18 11:47; Start 02/05/18 at 11:15 Oxycodone HCl (Roxicodone) 10 mg TID PRN PRN PO PAIN Last administered on 08:19; Start 02/05/18 at 13:00; Stop 02/07/18 at 13:28; Status DC Potassium Chloride (Klor-Con) 40 meq 1X ONCE PO Last administered on 09:49; Start 02/06/18 at 08:15; Stop 02/06/18 at 08:16; Status DC Potassium Chloride (Klor-Con) 20 meq [id number] PO Last administered on 10:23; Start 02/07/18 at 08:00 Amoxicillin/ Clavulanate Potassium (Augmentin 875/ 125mg) 1 tab BID PO Last administered on 02/09/18 09:17; Start 02/06/18 at 21:00 Pantoprazole Sodium (Protonix) 40 mg DAILYAC PO Last administered on 02/09/18 09:20; Start 02/07/18 at 07:30 Fluticasone Propionate (Flonase) 2 spray DAILY NS Last administered on 10:24; Start 02/07/18 at 11:00 Alprazolam (Xanax) 0.25 mg PRN Q8HRS PRN PO ANXIETY / AGITATION Last administered on 02/08/18 17:49; Start 02/07/18 at 09:30 Dicyclomine HCl (Bentyl) 10 mg [id number] PO Last administered on 02/07/18 20:39 ; Start 02/07/18 at 14:00 Simethicone (Gas-X) 80 mg PRN Q4HRS PRN PO GAS / BLOATING; Start 02/07/18 at 13 :30 Atenolol (Tenormin) 25 mg DAILY PO Last administered on 02/09/18 09:18; Start 02/07/18 at 14:00 Non-Formulary Medication (Fluticasone/ Salmeterol (Advair 250-50 Diskus)) 1 puff BID IH ; Start 02/07/18 at 21:00; Status UNV Gabapentin (Neurontin) 400 mg DAILY PO Last administered on 02/09/18at 09:16; Start 02/07/18 at 14:00 Meloxicam (Mobic) 7.5 mg DAILY PO Last administered on 02/09/18at 09:18; Start 02/07/18 at 14:00 Pramipexole Dihydrochloride (miraPEX) 0.5 mg HS PO ; Start 02/07/18 at 21:00; Stop 02/07/18 at 21:00; Status DC Guaifenesin (MUCINEX ER with DM) 1 tab BID PO Last administered on 02/09/18at 09 :17; Start 02/07/18 at 14:00 Oxycodone HCl (Roxicodone) 10 mg PRN Q6HRS PRN PO PAIN Last administered on 02/09/18at 03:44; Start 02/07/18 at 13:30 Gabapentin (Neurontin) 300 mg DAILY PO Last administered on 02/09/18at 09:16; Start 02/08/18 at 09:00 Budesonide (Pulmicort) 0.5 mg BID NEB Last administered on 02/09/18at 08:47; Start 02/07/18 at 14:30 Albuterol Sulfate (Ventolin Neb Soln) 2.5 mg QID NEB ; Start 02/07/18 at 17:00 Active Scripts Active Fluticasone Propionate Nasal [place] (Fluticasone Propionate) 16 Gm [place].susp 2 [place] NS DAILY MDD 1 5 Days Budesonide 0.5 Mg/2 Ml Ampul.neb 0.5 Mg NEB BID MDD 1 14 Days Mucinex Dm Er 600-30 Mg Tablet (Guaifenesin/Dextromethorphan) 1 Each Tab.er.12h 1 Tab PO BID MDD 1 7 Days Alprazolam 0.25 Mg Tablet 0.25 Mg PO PRN Q8HRS PRN Amox Tr-K Clv 875-125 Mg Tab (Amoxicillin/Potassium Clav) 1 Each Tablet 1 Tab PO BID MDD 1 7 Days Prednisone 20 Mg Tablet 40 Mg PO DAILY Albuterol Sulfate Neb Soln (Albuterol Sulfate) 2.5 Mg/3 Ml Vial.neb 2.5 Mg NEB PRN Q2HR PRN 30 Days Advair 250-50 Diskus (Fluticasone/Salmeterol) 1 Each Disk.w.dev 1 Puff IH BID Reported Atenolol 25 Mg Tablet 1 Tab PO DAILY Dicyclomine Hcl 10 Mg Capsule 1 Cap PO PRN Gabapentin 400 Mg Capsule 700 Mg PO DAILY Simethicone 80 Mg Tab.chew 80 Mg PO PRN Duoneb 0.5-3(2.5) Mg/3 Ml (Albuterol/Ipratropium) 3 Ml Ampul.neb 3 Ml NEB QID Mirapex (Pramipexole Di-Hcl) 0.25 Mg Tablet 0.5 Mg PO HS Ferrous Sulfate 325 Mg Tablet 325 Mg PO DAILY Multivitamins (Multivitamin) 1 Each Capsule 1 Each PO Folic Acid 1 Mg Tablet 1 Tab PO DAILY Isosorbide Mononitrate 20 Mg Tablet 60 Mg PO DAILY Probiotic (Lactobacillus Combo No.11) 1 Each Cap.sprink 1 Each PO DAILY Fish Oil ([place]-3 Fatty Acids) 300 Mg Capsule 1,200 Mg PO BID Crestor (Rosuvastatin Calcium) 40 Mg Tablet 1 Tab PO DAILY Aspir 81 (Aspirin) 81 Mg Tablet.dr 1 Tab PO DAILY Plavix (Clopidogrel Bisulfate) 75 Mg Tablet 75 Mg PO DAILY Oxycodone Hcl 10 Mg Tablet 10 Mg PO QID PRN 10 Days Meloxicam 7.5 Mg Tablet 7.5 Mg PO DAILY Prilosec Otc (Omeprazole Magnesium) 20 Mg Tablet.dr 20 Mg PO DAILY Famotidine 20 Mg Tablet 20 Mg PO BID Vitals/I & O Vital Sign - Last 24 Hours 02/08/18 02/08/18 02/08/18 02/08/18 11:00 11:40 15:00 15:21 Temp 98.0 96.1 98.0 96.1 Pulse 75 72 Resp 18 18 B/P (MAP) 96/53 (67) 99/54 (69) Pulse Ox 97 98 94 O2 Delivery Nasal Cannula Nasal Cannula Nasal Cannula Nasal Cannula O2 Flow Rate 4.0 4.0 4.0 4.0 02/08/18 02/08/18 02/08/18 02/08/18 18:30 19:00 19:05 19:42 Temp 98.5 98.5 Pulse 97 Resp 18 B/P (MAP) 108/50 (69) Pulse Ox 93 94 O2 Delivery Nasal Cannula Nasal Cannula Nasal Cannula Nasal Cannula O2 Flow Rate 4.0 4.0 5.0 02/08/18 02/08/18 02/08/18 02/08/18 19:42 20:00 22:56 23:55 Temp 97.7 97.7 Pulse 89 Resp 18 B/P (MAP) 126/60 (82) Pulse Ox 94 91 O2 Delivery Nasal Cannula Nasal Cannula BiPAP/CPAP O2 Flow Rate 5.0 5.0 4.0 02/09/18 02/09/18 02/09/18 02/09/18 03:00 03:44 04:40 07:00 Temp 98.4 98.2 98.4 98.2 Pulse 102 99 Resp 18 16 20 22 B/P (MAP) 148/79 (102) 165/63 (97) Pulse Ox 93 93 93 89 O2 Delivery Nasal Cannula Nasal Cannula Nasal Cannula Nasal Cannula O2 Flow Rate 4.0 4.0 4.0 4.0 02/09/18 02/09/18 02/09/18 08:49 09:18 09:20 Pulse 99 99 B/P (MAP) 165/63 165/63 Pulse Ox 92 O2 Delivery Nasal Cannula O2 Flow Rate 5.0 Intake and Output 02/08/18 02/08/18 02/09/18 15:00 23:00 07:00 Intake Total 140 ml 80 ml 150 ml Balance 140 ml 80 ml 150 ml ARNOL RASHID MD Feb 09, 2018 10:51
[2018-02-09 11:00] VITALS: BP 102/54
[2018-02-09] MEDS: FLUTICASONE 50MCG/NASAL SPRAY 16GM BOTTLE. NS SCH (12:10)
[2018-02-09] MEDS: LIDOCAINE (700MG/PATCH) PATCH. TD SCH (12:11)
[2018-02-09] MEDS: DICYCLOMINE HCL 10 MG CAPSULE PO SCH ×3 (14:00→20:39)
[2018-02-09 15:00] VITALS: BP 137/61
[2018-02-09 19:00] VITALS: BP 119/58
[2018-02-09] MEDS: PATCH REMOVAL. MC SCH (20:37)
[2018-02-09] MEDS: ENOXAPARIN 40 MG/0.4 ML SYRINGE. SQ SCH (20:37)
[2018-02-09] MEDS: ATORVASTATIN CALCIUM 40 MG TABLET. PO SCH (20:37)
[2018-02-09] MEDS: PRAMIPEXOLE 1 MG TABLET. PO SCH (20:37)
[2018-02-09 23:00] VITALS: BP 146/56
--- NOTE | 2018-02-10 00:57 | CONS ---
DATE OF CONSULTATION: 02/09/2018 ATTENDING PHYSICIAN: Dr. Dallas. The patient was seen at the request of Dr. Dallas for evaluation about her back pain. HISTORY OF PRESENT ILLNESS: This is a 63-year-old right-handed female, a patient of Dr. Wero Arriola admitted through the Emergency Room on 02/03/2018 with increased shortness of breath. The patient with end-stage renal disease and oxygen dependent at home. Her noted her being somewhat confused. The patient required intubation as arterial blood gases showed severe hypercapnia. The patient with known coronary artery disease, hypertension, previous myocardial infarction, hyperlipidemia, chronic obstructive pulmonary disease, old cerebrovascular accident and osteoarthritis. Family history of coronary artery disease and heart disease. She quit smoking. SHE IS KNOWN ALLERGIC TO BUPROPRION. The patient complains of lower back pain without any radiation, but right now pain is coming up the back. She denies any tingling or numbness sensation in the extremities. The patient had lumbar spine x-rays done, which revealed moderate degenerative changes in the lumbar spine with mild to moderate intervertebral disk height loss and severe aortic atherosclerosis was also noted. The patient lives with her family and had stairs to manage at home. PHYSICAL EXAMINATION: Today revealed a middle-aged female. She is alert, oriented to time, place, person and circumstance and follows commands appropriately, moves all 4 extremities voluntarily where she had 4+/5 grade muscle strength and deep tendon reflexes are 2+ and symmetrical and she had equal perception of touch and pinprick sensation bilaterally. She had tenderness to palpation over the sacroiliac joint area bilaterally. Straight leg raising test is negative bilaterally. The patient is sitting in bedside chair and receiving oxygen. I have not tested her mobility skills at present time. She had pain-free range of motion of both hip joints. ASSESSMENT: A middle-aged female with a recent exacerbation of chronic obstructive pulmonary disease with respiratory failure requiring intubation for treatment of severe hypercapnia also with known coronary artery disease, hypertension, myocardial infarction, hyperlipidemia, old cerebrovascular accident, degenerative joint disease and chronic lower back pain from degenerative disk disease of lumbar vertebrae without any clinical evidence of ongoing lumbar radiculopathy. RECOMMENDATIONS: I have advised her in a home program of physical modalities and stretching exercises and proper body mechanics to her back. Advised her to avoid any activity that irritates her back. She admits the pain is getting less so to hold off any injections to her sacroiliac joint area. Dr. Dallas, I appreciate asking me to participate in the care of this interesting patient. I will be glad to follow her with you as needed for rehabilitation. REBEKA HOLT MD DR: BAILEE/sarbjit JOB#: [id number] / [id number] WERO Lujan MD
[2018-02-10 03:00] VITALS: BP 133/64
[2018-02-10] MEDS: PANTOPRAZOLE 40 MG TABLET.DR. PO SCH (05:45)
[2018-02-10] MEDS: oxyCODONE IR 5 MG TABLET PO PRN ×2 (05:46→23:18)
[2018-02-10 07:00] VITALS: BP 150/75
[2018-02-10 07:25] LABS: BASO # 0.1 x10^3/uL (0.0-0.2); BASO % 1 % (0-3); EOS # 0.2 x10^3/uL (0.0-0.7); EOS % 3 % (0-3); HEMOGLOBIN 11.9 g/dL (12.0-15.5); LYMPH # 1.5 x10^3/uL (1.0-4.8); LYMPH % 18 % (24-48); MEAN CORPUSCULAR HEMOGLOBIN 33 pg (25-35); MEAN CORPUSCULAR HGB CONC 33 g/dL (31-37); MEAN CORPUSCULAR VOLUME 98 fL (79-100); MONO # 0.8 x10^3/uL (0.0-1.1); MONO % 10 % (0-9); NEUT # 5.6 x10^3uL (1.8-7.7); NEUT % 69 % (31-73); PLATELET COUNT 441 x10^3/uL (140-400); RED BLOOD COUNT 3.67 x10^6/uL (3.50-5.40); RED CELL DISTRIBUTION WIDTH 14.3 % (11.5-14.5); WHITE BLOOD COUNT 8.1 x10^3/uL (4.0-11.0)
[2018-02-10 07:35] LABS: CALCIUM 9.4 mg/dL (8.5-10.1); CREATININE 0.6 mg/dL (0.6-1.0); GFR 101.3; POTASSIUM 4.1 mmol/L (3.5-5.1)
[2018-02-10] MEDS: BUDESONIDE 0.5 MG/2 ML NEBU. NEB SCH ×2 (08:10→19:19)
[2018-02-10] MEDS: IPRATRPIUM/ALBUTEROL 0.5/2.5MG 3 ML NEBU. NEB SCH ×4 (08:11→19:19)
--- NOTE | 2018-02-10 08:37 | PDOC ---
PULMONARY PROGRESS NOTES Subjective extubated 02/04 NO RESP DISTRESS Vitals Vital Signs Date Time Temp Pulse Resp B/P (MAP) Pulse Ox O2 Delivery O2 Flow Rate FiO2 02/10/18 08:27 93 Nasal Cannula 3.5 02/10/18 06:31 20 02/10/18 03:00 97.9 99 133/64 (87) 97.9 General: Alert, No acute distress Lungs: Other (decrease bases) Cardiovascular: S1, S2 Abdomen: Soft, Non-tender Neuro Exam: Alert Extremities: No Edema Skin: Warm Labs Laboratory Tests Test 02/09/18 04:30 02/10/18 06:40 White Blood Count 6.4 x10^3/uL (4.0-11.0) 8.1 x10^3/uL (4.0-11.0) Red Blood Count 3.48 x10^6/uL (3.50-5.40) 3.67 x10^6/uL (3.50-5.40) Hemoglobin 11.0 g/dL (12.0-15.5) 11.9 g/dL (12.0-15.5) Hematocrit 34.2 % (36.0-47.0) 36.0 % (36.0-47.0) Mean Corpuscular Volume 98 fL (79-100) 98 fL (79-100) Mean Corpuscular Hemoglobin 32 pg (25-35) 33 pg (25-35) Mean Corpuscular Hemoglobin Concent 32 g/dL (31-37) 33 g/dL (31-37) Red Cell Distribution Width 14.5 % (11.5-14.5) 14.3 % (11.5-14.5) Platelet Count 357 x10^3/uL (140-400) 441 x10^3/uL (140-400) Neutrophils (%) (Auto) 67 % (31-73) 69 % (31-73) Lymphocytes (%) (Auto) 18 % (24-48) 18 % (24-48) Monocytes (%) (Auto) 12 % (0-9) 10 % (0-9) Eosinophils (%) (Auto) 3 % (0-3) 3 % (0-3) Basophils (%) (Auto) 0 % (0-3) 1 % (0-3) Neutrophils # (Auto) 4.3 x10^3uL (1.8-7.7) 5.6 x10^3uL (1.8-7.7) Lymphocytes # (Auto) 1.1 x10^3/uL (1.0-4.8) 1.5 x10^3/uL (1.0-4.8) Monocytes # (Auto) 0.8 x10^3/uL (0.0-1.1) 0.8 x10^3/uL (0.0-1.1) Eosinophils # (Auto) 0.2 x10^3/uL (0.0-0.7) 0.2 x10^3/uL (0.0-0.7) Basophils # (Auto) 0.0 x10^3/uL (0.0-0.2) 0.1 x10^3/uL (0.0-0.2) Sodium Level 148 mmol/L (136-145) 148 mmol/L (136-145) Potassium Level 4.0 mmol/L (3.5-5.1) 4.1 mmol/L (3.5-5.1) Chloride Level 104 mmol/L (98-107) 103 mmol/L (98-107) Carbon Dioxide Level 40 mmol/L (21-32) 42 mmol/L (21-32) Anion Gap 4 (6-14) 3 (6-14) Blood Urea Nitrogen 8 mg/dL (7-20) 9 mg/dL (7-20) Creatinine 0.6 mg/dL (0.6-1.0) 0.6 mg/dL (0.6-1.0) Estimated GFR (Cockcroft-Gault) 101.3 101.3 Glucose Level 103 mg/dL (70-99) 101 mg/dL (70-99) Calcium Level 9.0 mg/dL (8.5-10.1) 9.4 mg/dL (8.5-10.1) Laboratory Tests Test 02/10/18 06:40 White Blood Count 8.1 x10^3/uL (4.0-11.0) Red Blood Count 3.67 x10^6/uL (3.50-5.40) Hemoglobin 11.9 g/dL (12.0-15.5) Hematocrit 36.0 % (36.0-47.0) Mean Corpuscular Volume 98 fL (79-100) Mean Corpuscular Hemoglobin 33 pg (25-35) Mean Corpuscular Hemoglobin Concent 33 g/dL (31-37) Red Cell Distribution Width 14.3 % (11.5-14.5) Platelet Count 441 x10^3/uL (140-400) Neutrophils (%) (Auto) 69 % (31-73) Lymphocytes (%) (Auto) 18 % (24-48) Monocytes (%) (Auto) 10 % (0-9) Eosinophils (%) (Auto) 3 % (0-3) Basophils (%) (Auto) 1 % (0-3) Neutrophils # (Auto) 5.6 x10^3uL (1.8-7.7) Lymphocytes # (Auto) 1.5 x10^3/uL (1.0-4.8) Monocytes # (Auto) 0.8 x10^3/uL (0.0-1.1) Eosinophils # (Auto) 0.2 x10^3/uL (0.0-0.7) Basophils # (Auto) 0.1 x10^3/uL (0.0-0.2) Sodium Level 148 mmol/L (136-145) Potassium Level 4.1 mmol/L (3.5-5.1) Chloride Level 103 mmol/L (98-107) Carbon Dioxide Level 42 mmol/L (21-32) Anion Gap 3 (6-14) Blood Urea Nitrogen 9 mg/dL (7-20) Creatinine 0.6 mg/dL (0.6-1.0) Estimated GFR (Cockcroft-Gault) 101.3 Glucose Level 101 mg/dL (70-99) Calcium Level 9.4 mg/dL (8.5-10.1) Medications Active Scripts Medications Dose Route/Sig Max Daily Dose Days Date Category Prednisone 20 Mg Tablet 40 Mg PO DAILY 02/11/17 Rx Albuterol Sulfate Neb Soln (Albuterol Sulfate) 2.5 Mg/3 Ml Vial.neb 2.5 Mg NEB PRN Q2HR PRN 30 02/11/17 Rx Advair 250-50 Diskus (Fluticasone/Salmeterol) 1 Each Disk.w.dev 1 Puff IH BID 02/11/17 Rx Atenolol 25 Mg Tablet 1 Tab PO DAILY 02/10/17 Reported Dicyclomine Hcl 10 Mg Capsule 1 Cap PO PRN 02/09/17 Reported Gabapentin 400 Mg Capsule 700 Mg PO DAILY 02/09/17 Reported Simethicone 80 Mg Tab.chew 80 Mg PO PRN 02/09/17 Reported Duoneb 0.5-3(2.5) Mg/3 Ml (Albuterol/Ipratropium) 3 Ml Ampul.neb 3 Ml NEB QID 02/09/17 Reported Mirapex (Pramipexole Di-Hcl) 0.25 Mg Tablet 0.5 Mg PO HS 02/09/17 Reported Ferrous Sulfate 325 Mg Tablet 325 Mg PO DAILY 12/04/16 Reported Multivitamins (Multivitamin) 1 Each Capsule 1 Each PO 05/30/16 Reported Folic Acid 1 Mg Tablet 1 Tab PO DAILY 05/30/16 Reported Isosorbide Mononitrate 20 Mg Tablet 60 Mg PO DAILY 05/30/16 Reported Probiotic (Lactobacillus Combo No.11) 1 Each Cap.sprink 1 Each PO DAILY 05/30/16 Reported Fish Oil ([place]-3 Fatty Acids) 300 Mg Capsule 1,200 Mg PO BID 05/30/16 Reported Crestor (Rosuvastatin Calcium) 40 Mg Tablet 1 Tab PO DAILY 05/30/16 Reported Aspir 81 (Aspirin) 81 Mg Tablet.dr 1 Tab PO DAILY 05/30/16 Reported Plavix (Clopidogrel Bisulfate) 75 Mg Tablet 75 Mg PO DAILY 02/28/16 Reported Oxycodone Hcl 10 Mg Tablet 10 Mg PO PRN TID PRN 02/28/16 Reported Meloxicam 7.5 Mg Tablet 7.5 Mg PO DAILY 02/28/16 Reported Prilosec Otc (Omeprazole Magnesium) 20 Mg Tablet.dr 20 Mg PO DAILY 02/28/16 Reported Famotidine 20 Mg Tablet 20 Mg PO BID 02/28/16 Reported Impression . 1. Prfce-hs-dkystal hypercapnic respiratory failure secondary to acute exacerbation of chronic obstructive pulmonary disease. extubated 02/05 2. 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 3. Acute toxic encephalopathy secondary to severe hypercarbia. resolved. 4. No definite consolidation seen on the chest x-ray with mildly prominent interstitial markings. 5. History of percutaneous coronary intervention. 6. Post nasal drip 7. Anxiety disorder Plan . PT DOING BETTER OK TO D/C SOON INFORMED PT SHE NEEDS TO LOOSE WEIGHT AND PERFORM PULM REHAB PT CONCERNED ABOUT HER LOW SAT AT TIMES ABG IN AM NOTED, HAS BIPAP AT HOME NOT SURE ON COMPLIANCE PRETTY VILA MD Feb 10, 2018 08:37
[2018-02-10 08:40] LABS: BASE EXCESS ABG 12 mmol/L (-3-3); HCO3 ABG 41 mmol/L (21-28); PO2 ABG 75 mmHg (65-108); SAT O2 ABG 94 % (92-99)
[2018-02-10 08:43] LABS: FIO2 ABG 34; PCO2 ABG 77 mmHg (35-46)
[2018-02-10] MEDS: GABAPENTIN 400 MG CAPSULE. PO SCH (09:09)
[2018-02-10] MEDS: LACTOBACILLUS RHAMNOSUS GG 1 CAPSULE. PO SCH ×2 (09:09→21:29)
[2018-02-10] MEDS: CLOPIDOGREL BISULFATE 75 MG TABLET PO SCH (09:09)
[2018-02-10] MEDS: guaiFENesin DM 600/30MG 1 TAB TAB.ER.12H PO SCH ×2 (09:09→21:30)
[2018-02-10] MEDS: AMOXICILLIN/K CLAV 875/125MG TABLET. PO SCH ×2 (09:09→21:29)
[2018-02-10] MEDS: GABAPENTIN 300 MG CAPSULE. PO SCH (09:09)
[2018-02-10] MEDS: MELOXICAM 7.5 MG TABLET PO SCH (09:10)
[2018-02-10] MEDS: FOLIC ACID 1 MG TABLET. PO SCH (09:10)
[2018-02-10] MEDS: OMEGA-3 FATTY ACIDS/FISH OIL 1,000 MG CAPSULE. PO SCH ×2 (09:11→21:29)
[2018-02-10] MEDS: FERROUS SULFATE 325 MG TABLET. PO SCH (09:11)
[2018-02-10] MEDS: ASPIRIN ENTERIC COATED 81 MG TABLET.DR. PO SCH (09:11)
[2018-02-10] MEDS: ATENOLOL 25 MG TABLET. PO SCH (09:11)
[2018-02-10] MEDS: ISOSORBIDE MONONITRATE ER 30 MG TAB.ER.24H PO SCH (09:12)
[2018-02-10] MEDS: FLUTICASONE 50MCG/NASAL SPRAY 16GM BOTTLE. NS SCH (09:12)
[2018-02-10] MEDS: POTASSIUM CHLORIDE 20 MEQ TABLET.ER. PO SCH (09:12)
[2018-02-10] MEDS: LIDOCAINE (700MG/PATCH) PATCH. TD SCH (09:13)
[2018-02-10] MEDS ORDERED: diphenhydrAMINE HCL 25 MG CAPSULE PO PRN (09:15)
--- NOTE | 2018-02-10 09:17 | PDOC ---
PROGRESS NOTES Chief Complaint Chief Complaint Acute on chronic respiratory failure with underlying AECOPD/pulmonary HTN END stage COPD - might even be HOSPICE candidate chronic diastolic CHF: Hypotension: likely from sedation CAD: reactive sinus tach, no ectopies HTN HLD Hypercapnic encephalopathy severe lower [place] pain POA History of Present Illness History of Present Illness Extubated 02/04 Was only intubated overnight This is her second intubation, she was intubated at [facility] maybe for 3 days within the last year LTAC screen ongoing She is not smoking anymore rough night last night, after nocturnal pulse ox-she could not breathe when they lowered her O2 sats She is up in her chair leaning forward to get some sleep No sleep, easily tired Easily S OA She might even be hospice candidate but I did not bring this up - we are screening for LTAC instead Plan: ON going LTAC screen Slow recovery Change Xanax to lorazepam per her request Lidoderm patch is helping Some Benadryl for sleep Discussed with RN Vitals Vitals Vital Signs Date Time Temp Pulse Resp B/P (MAP) Pulse Ox O2 Delivery O2 Flow Rate FiO2 02/10/18 09:12 95 150/75 02/10/18 08:27 93 Nasal Cannula 3.5 02/10/18 07:00 98.3 18 98.3 Physical Exam General: Alert, Oriented X3, Cooperative, No acute distress, moderate distress , Other (intubated, but looking around) Heart: Regular rate (sinus tach), Normal S1, Other (distant heart sounds) Lungs: Other (decrease bases) Abdomen: Normal bowel sounds, Soft, No tenderness Extremities: No cyanosis, Other (1+ bilateral LE pitting edema) Skin: No breakdown, No significant lesion Labs LABS Laboratory Tests Test 02/10/18 06:40 02/10/18 08:00 White Blood Count 8.1 x10^3/uL (4.0-11.0) Red Blood Count 3.67 x10^6/uL (3.50-5.40) Hemoglobin 11.9 g/dL (12.0-15.5) Hematocrit 36.0 % (36.0-47.0) Mean Corpuscular Volume 98 fL (79-100) Mean Corpuscular Hemoglobin 33 pg (25-35) Mean Corpuscular Hemoglobin Concent 33 g/dL (31-37) Red Cell Distribution Width 14.3 % (11.5-14.5) Platelet Count 441 x10^3/uL (140-400) Neutrophils (%) (Auto) 69 % (31-73) Lymphocytes (%) (Auto) 18 % (24-48) Monocytes (%) (Auto) 10 % (0-9) Eosinophils (%) (Auto) 3 % (0-3) Basophils (%) (Auto) 1 % (0-3) Neutrophils # (Auto) 5.6 x10^3uL (1.8-7.7) Lymphocytes # (Auto) 1.5 x10^3/uL (1.0-4.8) Monocytes # (Auto) 0.8 x10^3/uL (0.0-1.1) Eosinophils # (Auto) 0.2 x10^3/uL (0.0-0.7) Basophils # (Auto) 0.1 x10^3/uL (0.0-0.2) Sodium Level 148 mmol/L (136-145) Potassium Level 4.1 mmol/L (3.5-5.1) Chloride Level 103 mmol/L (98-107) Carbon Dioxide Level 42 mmol/L (21-32) Anion Gap 3 (6-14) Blood Urea Nitrogen 9 mg/dL (7-20) Creatinine 0.6 mg/dL (0.6-1.0) Estimated GFR (Cockcroft-Gault) 101.3 Glucose Level 101 mg/dL (70-99) Calcium Level 9.4 mg/dL (8.5-10.1) O2 Saturation 94 % (92-99) Arterial Blood pH 7.34 (7.35-7.45) Arterial Blood pCO2 at Patient Temp 77 mmHg (35-46) Arterial Blood pO2 at Patient Temp 75 mmHg (65-108) Arterial Blood HCO3 41 mmol/L (21-28) Arterial Blood Base Excess 12 mmol/L (-3-3) FiO2 34 Review of Systems Review of Systems SOA, tired, no sleep, fatigue, generalized weakness Assessment and Plan Assessmemt and Plan Problems Medical Problems: (1) Respiratory failure Status: Acute Comment Review of Relevant I have reviewed the following items afshin (where applicable) has been applied. Labs Laboratory Tests Test 02/09/18 04:30 02/10/18 06:40 02/10/18 08:00 White Blood Count 6.4 x10^3/uL (4.0-11.0) 8.1 x10^3/uL (4.0-11.0) Red Blood Count 3.48 x10^6/uL (3.50-5.40) 3.67 x10^6/uL (3.50-5.40) Hemoglobin 11.0 g/dL (12.0-15.5) 11.9 g/dL (12.0-15.5) Hematocrit 34.2 % (36.0-47.0) 36.0 % (36.0-47.0) Mean Corpuscular Volume 98 fL (79-100) 98 fL (79-100) Mean Corpuscular Hemoglobin 32 pg (25-35) 33 pg (25-35) Mean Corpuscular Hemoglobin Concent 32 g/dL (31-37) 33 g/dL (31-37) Red Cell Distribution Width 14.5 % (11.5-14.5) 14.3 % (11.5-14.5) Platelet Count 357 x10^3/uL (140-400) 441 x10^3/uL (140-400) Neutrophils (%) (Auto) 67 % (31-73) 69 % (31-73) Lymphocytes (%) (Auto) 18 % (24-48) 18 % (24-48) Monocytes (%) (Auto) 12 % (0-9) 10 % (0-9) Eosinophils (%) (Auto) 3 % (0-3) 3 % (0-3) Basophils (%) (Auto) 0 % (0-3) 1 % (0-3) Neutrophils # (Auto) 4.3 x10^3uL (1.8-7.7) 5.6 x10^3uL (1.8-7.7) Lymphocytes # (Auto) 1.1 x10^3/uL (1.0-4.8) 1.5 x10^3/uL (1.0-4.8) Monocytes # (Auto) 0.8 x10^3/uL (0.0-1.1) 0.8 x10^3/uL (0.0-1.1) Eosinophils # (Auto) 0.2 x10^3/uL (0.0-0.7) 0.2 x10^3/uL (0.0-0.7) Basophils # (Auto) 0.0 x10^3/uL (0.0-0.2) 0.1 x10^3/uL (0.0-0.2) Sodium Level 148 mmol/L (136-145) 148 mmol/L (136-145) Potassium Level 4.0 mmol/L (3.5-5.1) 4.1 mmol/L (3.5-5.1) Chloride Level 104 mmol/L (98-107) 103 mmol/L (98-107) Carbon Dioxide Level 40 mmol/L (21-32) 42 mmol/L (21-32) Anion Gap 4 (6-14) 3 (6-14) Blood Urea Nitrogen 8 mg/dL (7-20) 9 mg/dL (7-20) Creatinine 0.6 mg/dL (0.6-1.0) 0.6 mg/dL (0.6-1.0) Estimated GFR (Cockcroft-Gault) 101.3 101.3 Glucose Level 103 mg/dL (70-99) 101 mg/dL (70-99) Calcium Level 9.0 mg/dL (8.5-10.1) 9.4 mg/dL (8.5-10.1) O2 Saturation 94 % (92-99) Arterial Blood pH 7.34 (7.35-7.45) Arterial Blood pCO2 at Patient Temp 77 mmHg (35-46) Arterial Blood pO2 at Patient Temp 75 mmHg (65-108) Arterial Blood HCO3 41 mmol/L (21-28) Arterial Blood Base Excess 12 mmol/L (-3-3) FiO2 34 Laboratory Tests Test 02/10/18 06:40 02/10/18 08:00 White Blood Count 8.1 x10^3/uL (4.0-11.0) Red Blood Count 3.67 x10^6/uL (3.50-5.40) Hemoglobin 11.9 g/dL (12.0-15.5) Hematocrit 36.0 % (36.0-47.0) Mean Corpuscular Volume 98 fL (79-100) Mean Corpuscular Hemoglobin 33 pg (25-35) Mean Corpuscular Hemoglobin Concent 33 g/dL (31-37) Red Cell Distribution Width 14.3 % (11.5-14.5) Platelet Count 441 x10^3/uL (140-400) Neutrophils (%) (Auto) 69 % (31-73) Lymphocytes (%) (Auto) 18 % (24-48) Monocytes (%) (Auto) 10 % (0-9) Eosinophils (%) (Auto) 3 % (0-3) Basophils (%) (Auto) 1 % (0-3) Neutrophils # (Auto) 5.6 x10^3uL (1.8-7.7) Lymphocytes # (Auto) 1.5 x10^3/uL (1.0-4.8) Monocytes # (Auto) 0.8 x10^3/uL (0.0-1.1) Eosinophils # (Auto) 0.2 x10^3/uL (0.0-0.7) Basophils # (Auto) 0.1 x10^3/uL (0.0-0.2) Sodium Level 148 mmol/L (136-145) Potassium Level 4.1 mmol/L (3.5-5.1) Chloride Level 103 mmol/L (98-107) Carbon Dioxide Level 42 mmol/L (21-32) Anion Gap 3 (6-14) Blood Urea Nitrogen 9 mg/dL (7-20) Creatinine 0.6 mg/dL (0.6-1.0) Estimated GFR (Cockcroft-Gault) 101.3 Glucose Level 101 mg/dL (70-99) Calcium Level 9.4 mg/dL (8.5-10.1) O2 Saturation 94 % (92-99) Arterial Blood pH 7.34 (7.35-7.45) Arterial Blood pCO2 at Patient Temp 77 mmHg (35-46) Arterial Blood pO2 at Patient Temp 75 mmHg (65-108) Arterial Blood HCO3 41 mmol/L (21-28) Arterial Blood Base Excess 12 mmol/L (-3-3) FiO2 34 Microbiology 02/03/18 Blood Culture - Final, Complete NO GROWTH AFTER 5 DAYS Medications Current Medications Propofol 50 ml @ As Directed STK-MED ONCE IV ; Start 02/03/18 at 18:03; Stop 02/03/18 at 18:04; Status DC Albuterol/ Ipratropium (Duoneb) 3 ml STK-MED ONCE .ROUTE ; Start 02/03/18 at 18 :05; Stop 02/03/18 at 18:06; Status DC Albuterol/ Ipratropium (Duoneb) 3 ml 1X ONCE NEB Last administered on at 18:20; Start 02/03/18 at 18:30; Stop 02/03/18 at 18:31; Status DC Albuterol/ Ipratropium (Duoneb) 3 ml 1X ONCE NEB ; Start 02/03/18 at 18:30; Stop 02/03/18 at 18:31; Status UNV Fentanyl Citrate 30 ml @ 0 mls/hr CONT PRN IV PER PROTOCOL Last administered on 02/04/18at 05:11; Start 02/03/18 at 18:30; Stop 02/06/18 at 13:17; Status DC Propofol 100 ml @ 0 mls/hr CONT PRN IV PER PROTOCOL Last administered on at 03:47; Start 02/03/18 at 18:30; Stop 02/06/18 at 13:18; Status DC Fentanyl Citrate (Fentanyl 2ml Vial) 25 mcg PRN Q1HR PRN IV MILD PAIN AND/OR RASS +1 OR +2; Start 02/03/18 at 18:30; Stop 02/06/18 at 13:20; Status DC Fentanyl Citrate (Fentanyl 2ml Vial) 50 mcg PRN Q1HR PRN IV MOD TO SEVERE PAIN / RASS +3 +4 Last administered on 02/05/18at 19:24; Start 02/03/18 at 18:30; Stop 02/06/18 at 13:20; Status DC Chlorhexidine Gluconate (Peridex) 15 ml BID MM ; Start 02/03/18 at 21:00; Stop 02/04/18 at 07:43; Status DC Norepinephrine Bitartrate 250 ml @ As Directed STK-MED ONCE IV ; Start at 18:41; Stop 02/03/18 at 18:42; Status DC Sodium Chloride 500 ml @ 500 mls/hr 1X ONCE IV Last administered on at 18:30; Start 02/03/18 at 19:00; Stop 02/03/18 at 19:59; Status DC Norepinephrine Bitartrate 250 ml @ 1.875 mls/ hr 1X ONCE IV Last administered on 02/03/18at 18:55; Start 02/03/18 at 19:00; Stop 02/06/18 at 13: 18; Status DC Etomidate (Amidate) 20 mg 1X ONCE IV Last administered on 02/03/18at 17:58; Start 02/03/18 at 19:00; Stop 02/03/18 at 19:02; Status DC Etomidate (Amidate) 20 mg 1X ONCE IV Last administered on 02/03/18at 18:03; Start 02/03/18 at 19:00; Stop 02/03/18 at 19:04; Status DC Succinylcholine Chloride (Anectine) 120 mg 1X ONCE IV Last administered on at 18:03; Start 02/03/18 at 19:00; Stop 02/03/18 at 19:01; Status DC Sodium Chloride 500 ml @ 500 mls/hr 1X ONCE IV ; Start 02/03/18 at 19:00; Stop 02/03/18 at 19:59; Status UNV Albuterol Sulfate (Ventolin Neb Soln) 10 mg 1X ONCE CONT NEB Last administered on 02/03/18at 19:22; Start 02/03/18 at 19:15; Stop 02/03/18 at 19 :16; Status DC Albuterol Sulfate (Ventolin Neb Soln) 2.5 mg STK-MED ONCE .ROUTE ; Start at 19:14; Stop 02/03/18 at 19:15; Status DC Fentanyl Citrate (Fentanyl 2ml Vial) 100 mcg STK-MED ONCE .ROUTE ; Start at 22:34; Stop 02/03/18 at 22:35; Status DC Piperacillin Sod/ Tazobactam Sod (Zosyn Per Pharmacy) 1 each PRN DAILY PRN MC SEE COMMENTS; Start 02/03/18 at 23:15; Stop 02/06/18 at 13:17; Status DC Albuterol Sulfate (Ventolin Neb Soln) 2.5 mg PRN Q2HR PRN NEB SHORTNESS OF BREATH; Start 02/03/18 at 23:15 Aspirin (Ecotrin) 81 mg DAILY PO Last administered on 02/10/18at 09:11; Start 02/04/18 at 09:00 Clopidogrel Bisulfate (Plavix) 75 mg DAILY PO Last administered on 02/10/18at 09 :09; Start 02/04/18 at 09:00 Famotidine (Pepcid) 20 mg BID PO ; Start 02/04/18 at 09:00; Stop 02/04/18 at 09:00; Status DC Ferrous Sulfate (Feosol) 325 mg DAILY PO Last administered on 02/10/18at 09:11; Start 02/04/18 at 09:00 Folic Acid (Folic Acid) 1 mg DAILY PO Last administered on 02/10/18at 09:10; Start 02/04/18 at 09:00 Albuterol/ Ipratropium (Duoneb) 3 ml RTQID NEB Last administered on 02/10/18at 08:11; Start 02/04/18 at 08:00 Isosorbide Mononitrate (Imdur) 60 mg DAILY PO Last administered on 02/10/18at 09 :12; Start 02/04/18 at 09:00 Lactobacillus Rhamnosus (Culturelle) 1 cap BID PO Last administered on at 09:09; Start 02/04/18 at 09:00 Fish Oil (Fish Oil) 1,000 mg BID PO Last administered on 02/10/18at 09:11; Start 02/04/18 at 09:00 Non-Formulary Medication (Omeprazole Magnesium (Prilosec Otc)) 20 mg DAILY PO ; Start 02/04/18 at 09:00; Status UNV Atorvastatin Calcium (Lipitor) 80 mg QHS PO Last administered on 02/09/18at 20: 37; Start 02/04/18 at 21:00 Pantoprazole Sodium (PROTONIX VIAL for IV PUSH) 40 mg DAILYAC IVP Last administered on 02/06/18at 05:19; Start 02/04/18 at 07:30; Stop 02/06/18 at 13: 21; Status DC Enoxaparin Sodium (Lovenox 40mg Syringe) 40 mg QHS SQ Last administered on 02/09at 20:37; Start 02/03/18 at 23:15 Pantoprazole Sodium (PROTONIX VIAL for IV PUSH) 40 mg 1X ONCE IVP ; Start at 00:00; Stop 02/03/18 at 00:01; Status Cancel Piperacillin Sod/ Tazobactam Sod 3.375 gm/Sodium Chloride 50 ml @ 100 mls/hr Q6HRS IV Last administered on 02/06/18at 05:15; Start 02/04/18 at 00:00; Stop 02/06/18 at 11:05; Status DC Sodium Chloride 1,000 ml @ 80 mls/hr [id number] IV Last administered on at 03:20; Start 02/03/18 at 23:45; Stop 02/05/18 at 11:12; Status DC Pantoprazole Sodium (PROTONIX VIAL for IV PUSH) 40 mg 1X ONCE IVP Last administered on 02/04/18at 00:44; Start 02/04/18 at 00:30; Stop 02/04/18 at 00 :31; Status DC Sodium Chloride 500 ml @ 500 mls/hr 1X ONCE IV Last administered on at 03:47; Start 02/04/18 at 03:30; Stop 02/04/18 at 04:29; Status DC Pramipexole Dihydrochloride (miraPEX) 0.5 mg QHS PO Last administered on at 20:37; Start 02/04/18 at 21:00 Senna/Docusate Sodium (Senna Plus) 1 tab PRN BID PRN PO CONSTIPATION 2ND CHOICE Last administered on 02/05/18at 11:46; Start 02/05/18 at 11:15 Polyethylene Glycol (miraLAX PACKET) 17 gm PRN DAILY PRN PO CONSTIPATION 1ST CHOICE Last administered on 02/05/18at 11:47; Start 02/05/18 at 11:15 Oxycodone HCl (Roxicodone) 10 mg TID PRN PRN PO PAIN Last administered on at 08:19; Start 02/05/18 at 13:00; Stop 02/07/18 at 13:28; Status DC Potassium Chloride (Klor-Con) 40 meq 1X ONCE PO Last administered on at 09:49; Start 02/06/18 at 08:15; Stop 02/06/18 at 08:16; Status DC Potassium Chloride (Klor-Con) 20 meq [id number] PO Last administered on at 09:12; Start 02/07/18 at 08:00 Amoxicillin/ Clavulanate Potassium (Augmentin 875/ 125mg) 1 tab BID PO Last administered on 02/10/18 09:09; Start 02/06/18 at 21:00 Pantoprazole Sodium (Protonix) 40 mg DAILYAC PO Last administered on 02/10/18 05:45; Start 02/07/18 at 07:30 Fluticasone Propionate (Flonase) 2 spray DAILY NS Last administered on 09:12; Start 02/07/18 at 11:00 Alprazolam (Xanax) 0.25 mg PRN Q8HRS PRN PO ANXIETY / AGITATION Last administered on 02/08/18 17:49; Start 02/07/18 at 09:30; Stop 02/09/18 at 10:49 ; Status DC Dicyclomine HCl (Bentyl) 10 mg [id number] PO Last administered on 02/07/18at 20:39 ; Start 02/07/18 at 14:00 Simethicone (Gas-X) 80 mg PRN Q4HRS PRN PO GAS / BLOATING; Start 02/07/18 at 13 :30 Atenolol (Tenormin) 25 mg DAILY PO Last administered on 02/10/18 09:11; Start 02/07/18 at 14:00 Non-Formulary Medication (Fluticasone/ Salmeterol (Advair 250-50 Diskus)) 1 puff BID IH ; Start 02/07/18 at 21:00; Status UNV Gabapentin (Neurontin) 400 mg DAILY PO Last administered on 02/10/18 09:09; Start 02/07/18 at 14:00 Meloxicam (Mobic) 7.5 mg DAILY PO Last administered on 02/10/18 09:10; Start 02/07/18 at 14:00 Pramipexole Dihydrochloride (miraPEX) 0.5 mg HS PO ; Start 02/07/18 at 21:00; Stop 02/07/18 at 21:00; Status DC Guaifenesin (MUCINEX ER with DM) 1 tab BID PO Last administered on 02/10/18 09 :09; Start 02/07/18 at 14:00 Oxycodone HCl (Roxicodone) 10 mg PRN Q6HRS PRN PO PAIN Last administered on 02/10/18at 05:46; Start 02/07/18 at 13:30 Gabapentin (Neurontin) 300 mg DAILY PO Last administered on 02/10/18at 09:09; Start 02/08/18 at 09:00 Budesonide (Pulmicort) 0.5 mg BID NEB Last administered on 02/10/18at 08:10; Start 02/07/18 at 14:30 Albuterol Sulfate (Ventolin Neb Soln) 2.5 mg QID NEB ; Start 02/07/18 at 17:00 Lorazepam (Ativan) 0.5 mg PRN Q8HRS PRN PO ANXIETY / AGITATION; Start 02/09/18 at 11:00 Lidocaine (Lidoderm) 1 patch DAILY TD Last administered on 02/10/18at 09:13; Start 02/09/18 at 11:00 Miscellaneous (Lidoderm Patch Removal) 1 ea QHS MC Last administered on at 20:37; Start 02/09/18 at 21:00 Active Scripts Active Fluticasone Propionate Nasal [place] (Fluticasone Propionate) 16 Gm [place].susp 2 [place] NS DAILY MDD 1 5 Days Budesonide 0.5 Mg/2 Ml Ampul.neb 0.5 Mg NEB BID MDD 1 14 Days Mucinex Dm Er 600-30 Mg Tablet (Guaifenesin/Dextromethorphan) 1 Each Tab.er.12h 1 Tab PO BID MDD 1 7 Days Alprazolam 0.25 Mg Tablet 0.25 Mg PO PRN Q8HRS PRN Amox Tr-K Clv 875-125 Mg Tab (Amoxicillin/Potassium Clav) 1 Each Tablet 1 Tab PO BID MDD 1 7 Days Prednisone 20 Mg Tablet 40 Mg PO DAILY Albuterol Sulfate Neb Soln (Albuterol Sulfate) 2.5 Mg/3 Ml Vial.neb 2.5 Mg NEB PRN Q2HR PRN 30 Days Advair 250-50 Diskus (Fluticasone/Salmeterol) 1 Each Disk.w.dev 1 Puff IH BID Reported Atenolol 25 Mg Tablet 1 Tab PO DAILY Dicyclomine Hcl 10 Mg Capsule 1 Cap PO PRN Gabapentin 400 Mg Capsule 700 Mg PO DAILY Simethicone 80 Mg Tab.chew 80 Mg PO PRN Duoneb 0.5-3(2.5) Mg/3 Ml (Albuterol/Ipratropium) 3 Ml Ampul.neb 3 Ml NEB QID Mirapex (Pramipexole Di-Hcl) 0.25 Mg Tablet 0.5 Mg PO HS Ferrous Sulfate 325 Mg Tablet 325 Mg PO DAILY Multivitamins (Multivitamin) 1 Each Capsule 1 Each PO Folic Acid 1 Mg Tablet 1 Tab PO DAILY Isosorbide Mononitrate 20 Mg Tablet 60 Mg PO DAILY Probiotic (Lactobacillus Combo No.11) 1 Each Cap.sprink 1 Each PO DAILY Fish Oil ([place]-3 Fatty Acids) 300 Mg Capsule 1,200 Mg PO BID Crestor (Rosuvastatin Calcium) 40 Mg Tablet 1 Tab PO DAILY Aspir 81 (Aspirin) 81 Mg Tablet.dr 1 Tab PO DAILY Plavix (Clopidogrel Bisulfate) 75 Mg Tablet 75 Mg PO DAILY Oxycodone Hcl 10 Mg Tablet 10 Mg PO QID PRN 10 Days Meloxicam 7.5 Mg Tablet 7.5 Mg PO DAILY Prilosec Otc (Omeprazole Magnesium) 20 Mg Tablet. 20 Mg PO DAILY Famotidine 20 Mg Tablet 20 Mg PO BID Vitals/I & O Vital Sign - Last 24 Hours 02/09/18 02/09/18 02/09/18 02/09/18 09:18 09:20 11:00 11:53 Temp 98.1 98.1 Pulse 99 99 78 Resp 24 B/P (MAP) 165/63 165/63 102/54 (70) Pulse Ox 94 96 O2 Delivery Nasal Cannula BiPAP/CPAP O2 Flow Rate 4.0 02/09/18 02/09/18 02/09/18 02/09/18 15:00 15:50 16:17 19:00 Temp 98.1 97.8 98.1 97.8 Pulse 81 86 Resp 22 24 B/P (MAP) 137/61 (86) 119/58 (78) Pulse Ox 93 92 92 95 O2 Delivery Nasal Cannula BiPAP/CPAP Nasal Cannula Nasal Cannula O2 Flow Rate 4.0 5.0 5.0 4.0 02/09/18 02/09/18 02/09/18 02/09/18 19:20 19:38 22:43 23:00 Temp 97.9 97.9 Pulse 100 Resp 20 24 B/P (MAP) 146/56 (86) Pulse Ox 97 97 85 O2 Delivery Nasal Cannula Nasal Cannula Nasal Cannula Nasal Cannula O2 Flow Rate 4.0 5.5 5.5 4.0 02/10/18 02/10/18 02/10/18 02/10/18 03:00 05:46 06:31 07:00 Temp 97.9 98.3 97.9 98.3 Pulse 99 95 Resp 24 18 20 18 B/P (MAP) 133/64 (87) 150/75 (100) Pulse Ox 91 91 91 95 O2 Delivery Nasal Cannula Nasal Cannula Nasal Cannula Nasal Cannula O2 Flow Rate 4.0 4.0 4.0 4.0 02/10/18 02/10/18 02/10/18 08:27 09:11 09:12 Pulse 95 95 B/P (MAP) 150/75 150/75 Pulse Ox 93 O2 Delivery Nasal Cannula O2 Flow Rate 3.5 Intake and Output 02/09/18 02/09/18 02/10/18 15:00 23:00 07:00 Intake Total 270 ml 180 ml 300 ml Balance 270 ml 180 ml 300 ml ARNOL RASHID MD Feb 10, 2018 09:16
[2018-02-10] MEDS: LORazepam 0.5 MG TABLET PO PRN (09:34)
[2018-02-10 11:00] VITALS: BP 95/47
--- NOTE | 2018-02-10 13:15 | PDOC ---
PROGRESS NOTES Subjective Subjective She admits continued difficulty with her breathing and back pain is tolerable. Objective Objective Vital Signs Date Time Temp Pulse Resp B/P (MAP) Pulse Ox O2 Delivery O2 Flow Rate FiO2 02/10/18 11:52 91 Nasal Cannula 3.5 02/10/18 11:00 83 18 95/47 (63) 02/10/18 07:00 98.3 98.3 Intake and Output 02/10/18 07:00 Intake Total 750 ml Balance 750 ml Intake Oral 750 ml # Voids 5 # Bowel Movements 1 Physical Exam Physical Exam She is sittng up in bedside chair,receiving oxygen by nasal canula and she is somewhat depressed about her present medical condition. Assessment Assessment Problems Medical Problems: (1) Respiratory failure Status: Acute Plan Plan of Care To continue present physical and occupational therapy follow up as tolerated. Comment Review of Relevant I have reviewed the following items afshin (where applicable) has been applied. Labs Laboratory Tests Test 02/09/18 04:30 02/10/18 06:40 02/10/18 08:00 White Blood Count 6.4 x10^3/uL (4.0-11.0) 8.1 x10^3/uL (4.0-11.0) Red Blood Count 3.48 x10^6/uL (3.50-5.40) 3.67 x10^6/uL (3.50-5.40) Hemoglobin 11.0 g/dL (12.0-15.5) 11.9 g/dL (12.0-15.5) Hematocrit 34.2 % (36.0-47.0) 36.0 % (36.0-47.0) Mean Corpuscular Volume 98 fL (79-100) 98 fL (79-100) Mean Corpuscular Hemoglobin 32 pg (25-35) 33 pg (25-35) Mean Corpuscular Hemoglobin Concent 32 g/dL (31-37) 33 g/dL (31-37) Red Cell Distribution Width 14.5 % (11.5-14.5) 14.3 % (11.5-14.5) Platelet Count 357 x10^3/uL (140-400) 441 x10^3/uL (140-400) Neutrophils (%) (Auto) 67 % (31-73) 69 % (31-73) Lymphocytes (%) (Auto) 18 % (24-48) 18 % (24-48) Monocytes (%) (Auto) 12 % (0-9) 10 % (0-9) Eosinophils (%) (Auto) 3 % (0-3) 3 % (0-3) Basophils (%) (Auto) 0 % (0-3) 1 % (0-3) Neutrophils # (Auto) 4.3 x10^3uL (1.8-7.7) 5.6 x10^3uL (1.8-7.7) Lymphocytes # (Auto) 1.1 x10^3/uL (1.0-4.8) 1.5 x10^3/uL (1.0-4.8) Monocytes # (Auto) 0.8 x10^3/uL (0.0-1.1) 0.8 x10^3/uL (0.0-1.1) Eosinophils # (Auto) 0.2 x10^3/uL (0.0-0.7) 0.2 x10^3/uL (0.0-0.7) Basophils # (Auto) 0.0 x10^3/uL (0.0-0.2) 0.1 x10^3/uL (0.0-0.2) Sodium Level 148 mmol/L (136-145) 148 mmol/L (136-145) Potassium Level 4.0 mmol/L (3.5-5.1) 4.1 mmol/L (3.5-5.1) Chloride Level 104 mmol/L (98-107) 103 mmol/L (98-107) Carbon Dioxide Level 40 mmol/L (21-32) 42 mmol/L (21-32) Anion Gap 4 (6-14) 3 (6-14) Blood Urea Nitrogen 8 mg/dL (7-20) 9 mg/dL (7-20) Creatinine 0.6 mg/dL (0.6-1.0) 0.6 mg/dL (0.6-1.0) Estimated GFR (Cockcroft-Gault) 101.3 101.3 Glucose Level 103 mg/dL (70-99) 101 mg/dL (70-99) Calcium Level 9.0 mg/dL (8.5-10.1) 9.4 mg/dL (8.5-10.1) O2 Saturation 94 % (92-99) Arterial Blood pH 7.34 (7.35-7.45) Arterial Blood pCO2 at Patient Temp 77 mmHg (35-46) Arterial Blood pO2 at Patient Temp 75 mmHg (65-108) Arterial Blood HCO3 41 mmol/L (21-28) Arterial Blood Base Excess 12 mmol/L (-3-3) FiO2 34 Laboratory Tests Test 02/10/18 06:40 02/10/18 08:00 White Blood Count 8.1 x10^3/uL (4.0-11.0) Red Blood Count 3.67 x10^6/uL (3.50-5.40) Hemoglobin 11.9 g/dL (12.0-15.5) Hematocrit 36.0 % (36.0-47.0) Mean Corpuscular Volume 98 fL (79-100) Mean Corpuscular Hemoglobin 33 pg (25-35) Mean Corpuscular Hemoglobin Concent 33 g/dL (31-37) Red Cell Distribution Width 14.3 % (11.5-14.5) Platelet Count 441 x10^3/uL (140-400) Neutrophils (%) (Auto) 69 % (31-73) Lymphocytes (%) (Auto) 18 % (24-48) Monocytes (%) (Auto) 10 % (0-9) Eosinophils (%) (Auto) 3 % (0-3) Basophils (%) (Auto) 1 % (0-3) Neutrophils # (Auto) 5.6 x10^3uL (1.8-7.7) Lymphocytes # (Auto) 1.5 x10^3/uL (1.0-4.8) Monocytes # (Auto) 0.8 x10^3/uL (0.0-1.1) Eosinophils # (Auto) 0.2 x10^3/uL (0.0-0.7) Basophils # (Auto) 0.1 x10^3/uL (0.0-0.2) Sodium Level 148 mmol/L (136-145) Potassium Level 4.1 mmol/L (3.5-5.1) Chloride Level 103 mmol/L (98-107) Carbon Dioxide Level 42 mmol/L (21-32) Anion Gap 3 (6-14) Blood Urea Nitrogen 9 mg/dL (7-20) Creatinine 0.6 mg/dL (0.6-1.0) Estimated GFR (Cockcroft-Gault) 101.3 Glucose Level 101 mg/dL (70-99) Calcium Level 9.4 mg/dL (8.5-10.1) O2 Saturation 94 % (92-99) Arterial Blood pH 7.34 (7.35-7.45) Arterial Blood pCO2 at Patient Temp 77 mmHg (35-46) Arterial Blood pO2 at Patient Temp 75 mmHg (65-108) Arterial Blood HCO3 41 mmol/L (21-28) Arterial Blood Base Excess 12 mmol/L (-3-3) FiO2 34 Microbiology 02/03/18 Blood Culture - Final, Complete NO GROWTH AFTER 5 DAYS Medications Current Medications Propofol 50 ml @ As Directed STK-MED ONCE IV ; Start 02/03/18 at 18:03; Stop 02/03/18 at 18:04; Status DC Albuterol/ Ipratropium (Duoneb) 3 ml STK-MED ONCE .ROUTE ; Start 02/03/18 at 18 :05; Stop 02/03/18 at 18:06; Status DC Albuterol/ Ipratropium (Duoneb) 3 ml 1X ONCE NEB Last administered on at 18:20; Start 02/03/18 at 18:30; Stop 02/03/18 at 18:31; Status DC Albuterol/ Ipratropium (Duoneb) 3 ml 1X ONCE NEB ; Start 02/03/18 at 18:30; Stop 02/03/18 at 18:31; Status UNV Fentanyl Citrate 30 ml @ 0 mls/hr CONT PRN IV PER PROTOCOL Last administered on 02/04/18at 05:11; Start 02/03/18 at 18:30; Stop 02/06/18 at 13:17; Status DC Propofol 100 ml @ 0 mls/hr CONT PRN IV PER PROTOCOL Last administered on at 03:47; Start 02/03/18 at 18:30; Stop 02/06/18 at 13:18; Status DC Fentanyl Citrate (Fentanyl 2ml Vial) 25 mcg PRN Q1HR PRN IV MILD PAIN AND/OR RASS +1 OR +2; Start 02/03/18 at 18:30; Stop 02/06/18 at 13:20; Status DC Fentanyl Citrate (Fentanyl 2ml Vial) 50 mcg PRN Q1HR PRN IV MOD TO SEVERE PAIN / RASS +3 +4 Last administered on 02/05/18at 19:24; Start 02/03/18 at 18:30; Stop 02/06/18 at 13:20; Status DC Chlorhexidine Gluconate (Peridex) 15 ml BID MM ; Start 02/03/18 at 21:00; Stop 02/04/18 at 07:43; Status DC Norepinephrine Bitartrate 250 ml @ As Directed STK-MED ONCE IV ; Start at 18:41; Stop 02/03/18 at 18:42; Status DC Sodium Chloride 500 ml @ 500 mls/hr 1X ONCE IV Last administered on at 18:30; Start 02/03/18 at 19:00; Stop 02/03/18 at 19:59; Status DC Norepinephrine Bitartrate 250 ml @ 1.875 mls/ hr 1X ONCE IV Last administered on 02/03/18at 18:55; Start 02/03/18 at 19:00; Stop 02/06/18 at 13: 18; Status DC Etomidate (Amidate) 20 mg 1X ONCE IV Last administered on 02/03/18at 17:58; Start 02/03/18 at 19:00; Stop 02/03/18 at 19:02; Status DC Etomidate (Amidate) 20 mg 1X ONCE IV Last administered on 02/03/18at 18:03; Start 02/03/18 at 19:00; Stop 02/03/18 at 19:04; Status DC Succinylcholine Chloride (Anectine) 120 mg 1X ONCE IV Last administered on at 18:03; Start 02/03/18 at 19:00; Stop 02/03/18 at 19:01; Status DC Sodium Chloride 500 ml @ 500 mls/hr 1X ONCE IV ; Start 02/03/18 at 19:00; Stop 02/03/18 at 19:59; Status UNV Albuterol Sulfate (Ventolin Neb Soln) 10 mg 1X ONCE CONT NEB Last administered on 02/03/18at 19:22; Start 02/03/18 at 19:15; Stop 02/03/18 at 19 :16; Status DC Albuterol Sulfate (Ventolin Neb Soln) 2.5 mg STK-MED ONCE .ROUTE ; Start at 19:14; Stop 02/03/18 at 19:15; Status DC Fentanyl Citrate (Fentanyl 2ml Vial) 100 mcg STK-MED ONCE .ROUTE ; Start at 22:34; Stop 02/03/18 at 22:35; Status DC Piperacillin Sod/ Tazobactam Sod (Zosyn Per Pharmacy) 1 each PRN DAILY PRN MC SEE COMMENTS; Start 02/03/18 at 23:15; Stop 02/06/18 at 13:17; Status DC Albuterol Sulfate (Ventolin Neb Soln) 2.5 mg PRN Q2HR PRN NEB SHORTNESS OF BREATH; Start 02/03/18 at 23:15 Aspirin (Ecotrin) 81 mg DAILY PO Last administered on 02/10/18at 09:11; Start 02/04/18 at 09:00 Clopidogrel Bisulfate (Plavix) 75 mg DAILY PO Last administered on 02/10/18at 09 :09; Start 02/04/18 at 09:00 Famotidine (Pepcid) 20 mg BID PO ; Start 02/04/18 at 09:00; Stop 02/04/18 at 09:00; Status DC Ferrous Sulfate (Feosol) 325 mg DAILY PO Last administered on 02/10/18at 09:11; Start 02/04/18 at 09:00 Folic Acid (Folic Acid) 1 mg DAILY PO Last administered on 02/10/18at 09:10; Start 02/04/18 at 09:00 Albuterol/ Ipratropium (Duoneb) 3 ml RTQID NEB Last administered on 02/10/18at 11:50; Start 02/04/18 at 08:00 Isosorbide Mononitrate (Imdur) 60 mg DAILY PO Last administered on 02/10/18at 09 :12; Start 02/04/18 at 09:00 Lactobacillus Rhamnosus (Culturelle) 1 cap BID PO Last administered on at 09:09; Start 02/04/18 at 09:00 Fish Oil (Fish Oil) 1,000 mg BID PO Last administered on 02/10/18at 09:11; Start 02/04/18 at 09:00 Non-Formulary Medication (Omeprazole Magnesium (Prilosec Otc)) 20 mg DAILY PO ; Start 02/04/18 at 09:00; Status UNV Atorvastatin Calcium (Lipitor) 80 mg QHS PO Last administered on 02/09/18at 20: 37; Start 02/04/18 at 21:00 Pantoprazole Sodium (PROTONIX VIAL for IV PUSH) 40 mg DAILYAC IVP Last administered on 02/06/18at 05:19; Start 02/04/18 at 07:30; Stop 02/06/18 at 13: 21; Status DC Enoxaparin Sodium (Lovenox 40mg Syringe) 40 mg QHS SQ Last administered on 02/09at 20:37; Start 02/03/18 at 23:15 Pantoprazole Sodium (PROTONIX VIAL for IV PUSH) 40 mg 1X ONCE IVP ; Start at 00:00; Stop 02/03/18 at 00:01; Status Cancel Piperacillin Sod/ Tazobactam Sod 3.375 gm/Sodium Chloride 50 ml @ 100 mls/hr Q6HRS IV Last administered on 02/06/18at 05:15; Start 02/04/18 at 00:00; Stop 02/06/18 at 11:05; Status DC Sodium Chloride 1,000 ml @ 80 mls/hr [id number] IV Last administered on at 03:20; Start 02/03/18 at 23:45; Stop 02/05/18 at 11:12; Status DC Pantoprazole Sodium (PROTONIX VIAL for IV PUSH) 40 mg 1X ONCE IVP Last administered on 02/04/18at 00:44; Start 02/04/18 at 00:30; Stop 02/04/18 at 00 :31; Status DC Sodium Chloride 500 ml @ 500 mls/hr 1X ONCE IV Last administered on at 03:47; Start 02/04/18 at 03:30; Stop 02/04/18 at 04:29; Status DC Pramipexole Dihydrochloride (miraPEX) 0.5 mg QHS PO Last administered on at 20:37; Start 02/04/18 at 21:00 Senna/Docusate Sodium (Senna Plus) 1 tab PRN BID PRN PO CONSTIPATION 2ND CHOICE Last administered on 02/05/18 11:46; Start 02/05/18 at 11:15 Polyethylene Glycol (miraLAX PACKET) 17 gm PRN DAILY PRN PO CONSTIPATION 1ST CHOICE Last administered on 02/05/18 11:47; Start 02/05/18 at 11:15 Oxycodone HCl (Roxicodone) 10 mg TID PRN PRN PO PAIN Last administered on 08:19; Start 02/05/18 at 13:00; Stop 02/07/18 at 13:28; Status DC Potassium Chloride (Klor-Con) 40 meq 1X ONCE PO Last administered on 09:49; Start 02/06/18 at 08:15; Stop 02/06/18 at 08:16; Status DC Potassium Chloride (Klor-Con) 20 meq [id number] PO Last administered on 09:12; Start 02/07/18 at 08:00 Amoxicillin/ Clavulanate Potassium (Augmentin 875/ 125mg) 1 tab BID PO Last administered on 02/10/18 09:09; Start 02/06/18 at 21:00 Pantoprazole Sodium (Protonix) 40 mg DAILYAC PO Last administered on 02/10/18 05:45; Start 02/07/18 at 07:30 Fluticasone Propionate (Flonase) 2 spray DAILY NS Last administered on 09:12; Start 02/07/18 at 11:00 Alprazolam (Xanax) 0.25 mg PRN Q8HRS PRN PO ANXIETY / AGITATION Last administered on 02/08/18at 17:49; Start 02/07/18 at 09:30; Stop 02/09/18 at 10:49 ; Status DC Dicyclomine HCl (Bentyl) 10 mg [id number] PO Last administered on 02/07/18 20:39 ; Start 02/07/18 at 14:00 Simethicone (Gas-X) 80 mg PRN Q4HRS PRN PO GAS / BLOATING; Start 02/07/18 at 13 :30 Atenolol (Tenormin) 25 mg DAILY PO Last administered on 02/10/18 09:11; Start 02/07/18 at 14:00 Non-Formulary Medication (Fluticasone/ Salmeterol (Advair 250-50 Diskus)) 1 puff BID IH ; Start 02/07/18 at 21:00; Status UNV Gabapentin (Neurontin) 400 mg DAILY PO Last administered on 02/10/18 09:09; Start 02/07/18 at 14:00 Meloxicam (Mobic) 7.5 mg DAILY PO Last administered on 02/10/18 09:10; Start 02/07/18 at 14:00 Pramipexole Dihydrochloride (miraPEX) 0.5 mg HS PO ; Start 02/07/18 at 21:00; Stop 02/07/18 at 21:00; Status DC Guaifenesin (MUCINEX ER with DM) 1 tab BID PO Last administered on 02/10/18at 09 :09; Start 02/07/18 at 14:00 Oxycodone HCl (Roxicodone) 10 mg PRN Q6HRS PRN PO PAIN Last administered on 02/10/18at 05:46; Start 02/07/18 at 13:30 Gabapentin (Neurontin) 300 mg DAILY PO Last administered on 02/10/18 09:09; Start 02/08/18 at 09:00 Budesonide (Pulmicort) 0.5 mg BID NEB Last administered on 02/10/18at 08:10; Start 02/07/18 at 14:30 Albuterol Sulfate (Ventolin Neb Soln) 2.5 mg QID NEB ; Start 02/07/18 at 17:00 Lorazepam (Ativan) 0.5 mg PRN Q8HRS PRN PO ANXIETY / AGITATION Last administered on 02/10/18at 09:34; Start 02/09/18 at 11:00 Lidocaine (Lidoderm) 1 patch DAILY TD Last administered on 02/10/18 09:13; Start 02/09/18 at 11:00 Miscellaneous (Lidoderm Patch Removal) 1 ea QHS MC Last administered on at 20:37; Start 02/09/18 at 21:00 Diphenhydramine HCl (Benadryl) 25 mg PRN QHS PRN PO INSOMNIA; Start 02/10/18 at 09:15 Active Scripts Active Fluticasone Propionate Nasal [place] (Fluticasone Propionate) 16 Gm [place].susp 2 [place] NS DAILY MDD 1 5 Days Budesonide 0.5 Mg/2 Ml Ampul.neb 0.5 Mg NEB BID MDD 1 14 Days Mucinex Dm Er 600-30 Mg Tablet (Guaifenesin/Dextromethorphan) 1 Each Tab.er.12h 1 Tab PO BID MDD 1 7 Days Alprazolam 0.25 Mg Tablet 0.25 Mg PO PRN Q8HRS PRN Amox Tr-K Clv 875-125 Mg Tab (Amoxicillin/Potassium Clav) 1 Each Tablet 1 Tab PO BID MDD 1 7 Days Prednisone 20 Mg Tablet 40 Mg PO DAILY Albuterol Sulfate Neb Soln (Albuterol Sulfate) 2.5 Mg/3 Ml Vial.neb 2.5 Mg NEB PRN Q2HR PRN 30 Days Advair 250-50 Diskus (Fluticasone/Salmeterol) 1 Each Disk.w.dev 1 Puff IH BID Reported Atenolol 25 Mg Tablet 1 Tab PO DAILY Dicyclomine Hcl 10 Mg Capsule 1 Cap PO PRN Gabapentin 400 Mg Capsule 700 Mg PO DAILY Simethicone 80 Mg Tab.chew 80 Mg PO PRN Duoneb 0.5-3(2.5) Mg/3 Ml (Albuterol/Ipratropium) 3 Ml Ampul.neb 3 Ml NEB QID Mirapex (Pramipexole Di-Hcl) 0.25 Mg Tablet 0.5 Mg PO HS Ferrous Sulfate 325 Mg Tablet 325 Mg PO DAILY Multivitamins (Multivitamin) 1 Each Capsule 1 Each PO Folic Acid 1 Mg Tablet 1 Tab PO DAILY Isosorbide Mononitrate 20 Mg Tablet 60 Mg PO DAILY Probiotic (Lactobacillus Combo No.11) 1 Each Cap.sprink 1 Each PO DAILY Fish Oil (Roberts-3 Fatty Acids) 300 Mg Capsule 1,200 Mg PO BID Crestor (Rosuvastatin Calcium) 40 Mg Tablet 1 Tab PO DAILY Aspir 81 (Aspirin) 81 Mg Tablet.dr 1 Tab PO DAILY Plavix (Clopidogrel Bisulfate) 75 Mg Tablet 75 Mg PO DAILY Oxycodone Hcl 10 Mg Tablet 10 Mg PO QID PRN 10 Days Meloxicam 7.5 Mg Tablet 7.5 Mg PO DAILY Prilosec Otc (Omeprazole Magnesium) 20 Mg Tablet.dr 20 Mg PO DAILY Famotidine 20 Mg Tablet 20 Mg PO BID Vitals/I & O Vital Sign - Last 24 Hours 02/09/18 02/09/18 02/09/18 02/09/18 15:00 15:50 16:17 19:00 Temp 98.1 97.8 98.1 97.8 Pulse 81 86 Resp 22 24 B/P (MAP) 137/61 (86) 119/58 (78) Pulse Ox 93 92 92 95 O2 Delivery Nasal Cannula BiPAP/CPAP Nasal Cannula Nasal Cannula O2 Flow Rate 4.0 5.0 5.0 4.0 02/09/18 02/09/18 02/09/18 02/09/18 19:20 19:38 22:43 23:00 Temp 97.9 97.9 Pulse 100 Resp 20 24 B/P (MAP) 146/56 (86) Pulse Ox 97 97 85 O2 Delivery Nasal Cannula Nasal Cannula Nasal Cannula Nasal Cannula O2 Flow Rate 4.0 5.5 5.5 4.0 02/10/18 02/10/18 02/10/18 02/10/18 03:00 05:46 06:31 07:00 Temp 97.9 98.3 97.9 98.3 Pulse 99 95 Resp 24 18 20 18 B/P (MAP) 133/64 (87) 150/75 (100) Pulse Ox 91 91 91 95 O2 Delivery Nasal Cannula Nasal Cannula Nasal Cannula Nasal Cannula O2 Flow Rate 4.0 4.0 4.0 4.0 02/10/18 02/10/18 02/10/18 02/10/18 08:00 08:00 08:27 09:11 Pulse 95 B/P (MAP) 150/75 Pulse Ox 93 O2 Delivery Bi-pap Nasal Cannula O2 Flow Rate 3.5 3.5 3.5 02/10/18 02/10/18 02/10/18 09:12 11:00 11:52 Pulse 95 83 Resp 18 B/P (MAP) 150/75 95/47 (63) Pulse Ox 94 91 O2 Delivery Nasal Cannula Nasal Cannula O2 Flow Rate 4.0 3.5 Intake and Output 02/09/18 02/09/18 02/10/18 15:00 23:00 07:00 Intake Total 270 ml 180 ml 300 ml Balance 270 ml 180 ml 300 ml REBEKA HOLT MD Feb 10, 2018 13:15
[2018-02-10] MEDS: DICYCLOMINE HCL 10 MG CAPSULE PO SCH ×2 (14:00→21:29)
[2018-02-10 15:00] VITALS: BP 99/54
[2018-02-10 19:00] VITALS: BP 135/63
[2018-02-10] MEDS: PRAMIPEXOLE 1 MG TABLET. PO SCH (21:29)
[2018-02-10] MEDS: PATCH REMOVAL. MC SCH (21:29)
[2018-02-10] MEDS: ATORVASTATIN CALCIUM 40 MG TABLET. PO SCH (21:30)
[2018-02-10 23:00] VITALS: BP 132/64
[2018-02-10] MEDS: ENOXAPARIN 40 MG/0.4 ML SYRINGE. SQ SCH (23:22)
[2018-02-11 03:00] VITALS: BP 145/55
[2018-02-11 04:46] LABS: BASO % 1 % (0-3); EOS # 0.2 x10^3/uL (0.0-0.7); EOS % 3 % (0-3); HEMATOCRIT 34.4 % (36.0-47.0); HEMOGLOBIN 11.1 g/dL (12.0-15.5); LYMPH # 1.6 x10^3/uL (1.0-4.8); LYMPH % 24 % (24-48); MEAN CORPUSCULAR HEMOGLOBIN 32 pg (25-35); MEAN CORPUSCULAR HGB CONC 32 g/dL (31-37); MEAN CORPUSCULAR VOLUME 98 fL (79-100); MONO # 0.7 x10^3/uL (0.0-1.1); MONO % 12 % (0-9); NEUT % 61 % (31-73); PLATELET COUNT 459 x10^3/uL (140-400); RED BLOOD COUNT 3.52 x10^6/uL (3.50-5.40); RED CELL DISTRIBUTION WIDTH 14.3 % (11.5-14.5); WHITE BLOOD COUNT 6.5 x10^3/uL (4.0-11.0)
[2018-02-11 04:57] LABS: CALCIUM 9.3 mg/dL (8.5-10.1); CREATININE 0.6 mg/dL (0.6-1.0); GFR 101.3; POTASSIUM 4.2 mmol/L (3.5-5.1)
[2018-02-11] MEDS: PANTOPRAZOLE 40 MG TABLET.DR. PO SCH (06:27)
[2018-02-11] MEDS: DICYCLOMINE HCL 10 MG CAPSULE PO SCH ×2 (06:27→14:00)
[2018-02-11] MEDS: oxyCODONE IR 5 MG TABLET PO PRN ×2 (06:28→17:18)
[2018-02-11 07:00] VITALS: BP 143/62
[2018-02-11] MEDS: BUDESONIDE 0.5 MG/2 ML NEBU. NEB SCH (07:44)
[2018-02-11] MEDS: IPRATRPIUM/ALBUTEROL 0.5/2.5MG 3 ML NEBU. NEB SCH ×3 (07:44→16:14)
[2018-02-11] MEDS: ASPIRIN ENTERIC COATED 81 MG TABLET.DR. PO SCH (09:16)
[2018-02-11] MEDS: AMOXICILLIN/K CLAV 875/125MG TABLET. PO SCH (09:16)
[2018-02-11] MEDS: LACTOBACILLUS RHAMNOSUS GG 1 CAPSULE. PO SCH (09:16)
[2018-02-11] MEDS: guaiFENesin DM 600/30MG 1 TAB TAB.ER.12H PO SCH (09:18)
[2018-02-11] MEDS: FERROUS SULFATE 325 MG TABLET. PO SCH (09:18)
[2018-02-11] MEDS: MELOXICAM 7.5 MG TABLET PO SCH (09:18)
[2018-02-11] MEDS: POTASSIUM CHLORIDE 20 MEQ TABLET.ER. PO SCH (09:19)
[2018-02-11] MEDS: GABAPENTIN 300 MG CAPSULE. PO SCH (09:19)
[2018-02-11] MEDS: GABAPENTIN 400 MG CAPSULE. PO SCH (09:19)
[2018-02-11] MEDS: FOLIC ACID 1 MG TABLET. PO SCH (09:20)
[2018-02-11] MEDS: CLOPIDOGREL BISULFATE 75 MG TABLET PO SCH (09:20)
[2018-02-11] MEDS: ISOSORBIDE MONONITRATE ER 30 MG TAB.ER.24H PO SCH (09:21)
[2018-02-11] MEDS: ATENOLOL 25 MG TABLET. PO SCH (09:21)
[2018-02-11] MEDS: OMEGA-3 FATTY ACIDS/FISH OIL 1,000 MG CAPSULE. PO SCH (09:21)
[2018-02-11] MEDS: LIDOCAINE (700MG/PATCH) PATCH. TD SCH (09:22)
[2018-02-11] MEDS: LORazepam 0.5 MG TABLET PO PRN (09:30)
[2018-02-11] MEDS: FLUTICASONE 50MCG/NASAL SPRAY 16GM BOTTLE. NS SCH (09:31)
--- NOTE | 2018-02-11 09:51 | PDOC ---
PROGRESS NOTES Subjective Subjective She admits continued difficulty with her breathing. Objective Objective Vital Signs Date Time Temp Pulse Resp B/P (MAP) Pulse Ox O2 Delivery O2 Flow Rate FiO2 02/11/18 09:21 97 145/55 02/11/18 07:47 90 Nasal Cannula 2.0 02/11/18 07:00 98.4 22 98.4 Intake and Output 02/11/18 07:00 Intake Total 260 ml Balance 260 ml Intake Oral 260 ml # Voids 10 Physical Exam Physical Exam She is sitting up in bedside chair and she continues to require oxygen by nasal canula and she gets increased SOB with any exertion. Her back pain is tolerable. Assessment Assessment Problems Medical Problems: (1) Respiratory failure Status: Acute Plan Plan of Care To continue present care efforts as tolerated. Comment Review of Relevant I have reviewed the following items afshin (where applicable) has been applied. Labs Laboratory Tests Test 02/10/18 06:40 02/10/18 08:00 02/11/18 04:20 White Blood Count 8.1 x10^3/uL (4.0-11.0) 6.5 x10^3/uL (4.0-11.0) Red Blood Count 3.67 x10^6/uL (3.50-5.40) 3.52 x10^6/uL (3.50-5.40) Hemoglobin 11.9 g/dL (12.0-15.5) 11.1 g/dL (12.0-15.5) Hematocrit 36.0 % (36.0-47.0) 34.4 % (36.0-47.0) Mean Corpuscular Volume 98 fL (79-100) 98 fL (79-100) Mean Corpuscular Hemoglobin 33 pg (25-35) 32 pg (25-35) Mean Corpuscular Hemoglobin Concent 33 g/dL (31-37) 32 g/dL (31-37) Red Cell Distribution Width 14.3 % (11.5-14.5) 14.3 % (11.5-14.5) Platelet Count 441 x10^3/uL (140-400) 459 x10^3/uL (140-400) Neutrophils (%) (Auto) 69 % (31-73) 61 % (31-73) Lymphocytes (%) (Auto) 18 % (24-48) 24 % (24-48) Monocytes (%) (Auto) 10 % (0-9) 12 % (0-9) Eosinophils (%) (Auto) 3 % (0-3) 3 % (0-3) Basophils (%) (Auto) 1 % (0-3) 1 % (0-3) Neutrophils # (Auto) 5.6 x10^3uL (1.8-7.7) 4.0 x10^3uL (1.8-7.7) Lymphocytes # (Auto) 1.5 x10^3/uL (1.0-4.8) 1.6 x10^3/uL (1.0-4.8) Monocytes # (Auto) 0.8 x10^3/uL (0.0-1.1) 0.7 x10^3/uL (0.0-1.1) Eosinophils # (Auto) 0.2 x10^3/uL (0.0-0.7) 0.2 x10^3/uL (0.0-0.7) Basophils # (Auto) 0.1 x10^3/uL (0.0-0.2) 0.0 x10^3/uL (0.0-0.2) Sodium Level 148 mmol/L (136-145) 146 mmol/L (136-145) Potassium Level 4.1 mmol/L (3.5-5.1) 4.2 mmol/L (3.5-5.1) Chloride Level 103 mmol/L (98-107) 103 mmol/L (98-107) Carbon Dioxide Level 42 mmol/L (21-32) 42 mmol/L (21-32) Anion Gap 3 (6-14) 1 (6-14) Blood Urea Nitrogen 9 mg/dL (7-20) 12 mg/dL (7-20) Creatinine 0.6 mg/dL (0.6-1.0) 0.6 mg/dL (0.6-1.0) Estimated GFR (Cockcroft-Gault) 101.3 101.3 Glucose Level 101 mg/dL (70-99) 104 mg/dL (70-99) Calcium Level 9.4 mg/dL (8.5-10.1) 9.3 mg/dL (8.5-10.1) O2 Saturation 94 % (92-99) Arterial Blood pH 7.34 (7.35-7.45) Arterial Blood pCO2 at Patient Temp 77 mmHg (35-46) Arterial Blood pO2 at Patient Temp 75 mmHg (65-108) Arterial Blood HCO3 41 mmol/L (21-28) Arterial Blood Base Excess 12 mmol/L (-3-3) FiO2 34 Laboratory Tests Test 02/11/18 04:20 White Blood Count 6.5 x10^3/uL (4.0-11.0) Red Blood Count 3.52 x10^6/uL (3.50-5.40) Hemoglobin 11.1 g/dL (12.0-15.5) Hematocrit 34.4 % (36.0-47.0) Mean Corpuscular Volume 98 fL (79-100) Mean Corpuscular Hemoglobin 32 pg (25-35) Mean Corpuscular Hemoglobin Concent 32 g/dL (31-37) Red Cell Distribution Width 14.3 % (11.5-14.5) Platelet Count 459 x10^3/uL (140-400) Neutrophils (%) (Auto) 61 % (31-73) Lymphocytes (%) (Auto) 24 % (24-48) Monocytes (%) (Auto) 12 % (0-9) Eosinophils (%) (Auto) 3 % (0-3) Basophils (%) (Auto) 1 % (0-3) Neutrophils # (Auto) 4.0 x10^3uL (1.8-7.7) Lymphocytes # (Auto) 1.6 x10^3/uL (1.0-4.8) Monocytes # (Auto) 0.7 x10^3/uL (0.0-1.1) Eosinophils # (Auto) 0.2 x10^3/uL (0.0-0.7) Basophils # (Auto) 0.0 x10^3/uL (0.0-0.2) Sodium Level 146 mmol/L (136-145) Potassium Level 4.2 mmol/L (3.5-5.1) Chloride Level 103 mmol/L (98-107) Carbon Dioxide Level 42 mmol/L (21-32) Anion Gap 1 (6-14) Blood Urea Nitrogen 12 mg/dL (7-20) Creatinine 0.6 mg/dL (0.6-1.0) Estimated GFR (Cockcroft-Gault) 101.3 Glucose Level 104 mg/dL (70-99) Calcium Level 9.3 mg/dL (8.5-10.1) Microbiology 02/03/18 Blood Culture - Final, Complete NO GROWTH AFTER 5 DAYS Medications Current Medications Propofol 50 ml @ As Directed STK-MED ONCE IV ; Start 02/03/18 at 18:03; Stop 02/03/18 at 18:04; Status DC Albuterol/ Ipratropium (Duoneb) 3 ml STK-MED ONCE .ROUTE ; Start 02/03/18 at 18 :05; Stop 02/03/18 at 18:06; Status DC Albuterol/ Ipratropium (Duoneb) 3 ml 1X ONCE NEB Last administered on at 18:20; Start 02/03/18 at 18:30; Stop 02/03/18 at 18:31; Status DC Albuterol/ Ipratropium (Duoneb) 3 ml 1X ONCE NEB ; Start 02/03/18 at 18:30; Stop 02/03/18 at 18:31; Status UNV Fentanyl Citrate 30 ml @ 0 mls/hr CONT PRN IV PER PROTOCOL Last administered on 02/04/18at 05:11; Start 02/03/18 at 18:30; Stop 02/06/18 at 13:17; Status DC Propofol 100 ml @ 0 mls/hr CONT PRN IV PER PROTOCOL Last administered on at 03:47; Start 02/03/18 at 18:30; Stop 02/06/18 at 13:18; Status DC Fentanyl Citrate (Fentanyl 2ml Vial) 25 mcg PRN Q1HR PRN IV MILD PAIN AND/OR RASS +1 OR +2; Start 02/03/18 at 18:30; Stop 02/06/18 at 13:20; Status DC Fentanyl Citrate (Fentanyl 2ml Vial) 50 mcg PRN Q1HR PRN IV MOD TO SEVERE PAIN / RASS +3 +4 Last administered on 02/05/18at 19:24; Start 02/03/18 at 18:30; Stop 02/06/18 at 13:20; Status DC Chlorhexidine Gluconate (Peridex) 15 ml BID MM ; Start 02/03/18 at 21:00; Stop 02/04/18 at 07:43; Status DC Norepinephrine Bitartrate 250 ml @ As Directed STK-MED ONCE IV ; Start at 18:41; Stop 02/03/18 at 18:42; Status DC Sodium Chloride 500 ml @ 500 mls/hr 1X ONCE IV Last administered on at 18:30; Start 02/03/18 at 19:00; Stop 02/03/18 at 19:59; Status DC Norepinephrine Bitartrate 250 ml @ 1.875 mls/ hr 1X ONCE IV Last administered on 02/03/18at 18:55; Start 02/03/18 at 19:00; Stop 02/06/18 at 13: 18; Status DC Etomidate (Amidate) 20 mg 1X ONCE IV Last administered on 02/03/18at 17:58; Start 02/03/18 at 19:00; Stop 02/03/18 at 19:02; Status DC Etomidate (Amidate) 20 mg 1X ONCE IV Last administered on 02/03/18at 18:03; Start 02/03/18 at 19:00; Stop 02/03/18 at 19:04; Status DC Succinylcholine Chloride (Anectine) 120 mg 1X ONCE IV Last administered on at 18:03; Start 02/03/18 at 19:00; Stop 02/03/18 at 19:01; Status DC Sodium Chloride 500 ml @ 500 mls/hr 1X ONCE IV ; Start 02/03/18 at 19:00; Stop 02/03/18 at 19:59; Status UNV Albuterol Sulfate (Ventolin Neb Soln) 10 mg 1X ONCE CONT NEB Last administered on 02/03/18at 19:22; Start 02/03/18 at 19:15; Stop 02/03/18 at 19 :16; Status DC Albuterol Sulfate (Ventolin Neb Soln) 2.5 mg STK-MED ONCE .ROUTE ; Start at 19:14; Stop 02/03/18 at 19:15; Status DC Fentanyl Citrate (Fentanyl 2ml Vial) 100 mcg STK-MED ONCE .ROUTE ; Start at 22:34; Stop 02/03/18 at 22:35; Status DC Piperacillin Sod/ Tazobactam Sod (Zosyn Per Pharmacy) 1 each PRN DAILY PRN MC SEE COMMENTS; Start 02/03/18 at 23:15; Stop 02/06/18 at 13:17; Status DC Albuterol Sulfate (Ventolin Neb Soln) 2.5 mg PRN Q2HR PRN NEB SHORTNESS OF BREATH; Start 02/03/18 at 23:15 Aspirin (Ecotrin) 81 mg DAILY PO Last administered on 02/11/18at 09:16; Start 02/04/18 at 09:00 Clopidogrel Bisulfate (Plavix) 75 mg DAILY PO Last administered on 02/11/18at 09 :20; Start 02/04/18 at 09:00 Famotidine (Pepcid) 20 mg BID PO ; Start 02/04/18 at 09:00; Stop 02/04/18 at 09:00; Status DC Ferrous Sulfate (Feosol) 325 mg DAILY PO Last administered on 02/11/18at 09:18; Start 02/04/18 at 09:00 Folic Acid (Folic Acid) 1 mg DAILY PO Last administered on 02/11/18at 09:20; Start 02/04/18 at 09:00 Albuterol/ Ipratropium (Duoneb) 3 ml RTQID NEB Last administered on 02/11/18at 07:44; Start 02/04/18 at 08:00 Isosorbide Mononitrate (Imdur) 60 mg DAILY PO Last administered on 02/11/18at 09 :21; Start 02/04/18 at 09:00 Lactobacillus Rhamnosus (Culturelle) 1 cap BID PO Last administered on at 09:16; Start 02/04/18 at 09:00 Fish Oil (Fish Oil) 1,000 mg BID PO Last administered on 02/11/18at 09:21; Start 02/04/18 at 09:00 Non-Formulary Medication (Omeprazole Magnesium (Prilosec Otc)) 20 mg DAILY PO ; Start 02/04/18 at 09:00; Status UNV Atorvastatin Calcium (Lipitor) 80 mg QHS PO Last administered on 02/10/18at 21: 30; Start 02/04/18 at 21:00 Pantoprazole Sodium (PROTONIX VIAL for IV PUSH) 40 mg DAILYAC IVP Last administered on 02/06/18at 05:19; Start 02/04/18 at 07:30; Stop 02/06/18 at 13: 21; Status DC Enoxaparin Sodium (Lovenox 40mg Syringe) 40 mg QHS SQ Last administered on 02/10at 23:22; Start 02/03/18 at 23:15 Pantoprazole Sodium (PROTONIX VIAL for IV PUSH) 40 mg 1X ONCE IVP ; Start at 00:00; Stop 02/03/18 at 00:01; Status Cancel Piperacillin Sod/ Tazobactam Sod 3.375 gm/Sodium Chloride 50 ml @ 100 mls/hr Q6HRS IV Last administered on 02/06/18at 05:15; Start 02/04/18 at 00:00; Stop 02/06/18 at 11:05; Status DC Sodium Chloride 1,000 ml @ 80 mls/hr [id number] IV Last administered on at 03:20; Start 02/03/18 at 23:45; Stop 02/05/18 at 11:12; Status DC Pantoprazole Sodium (PROTONIX VIAL for IV PUSH) 40 mg 1X ONCE IVP Last administered on 02/04/18at 00:44; Start 02/04/18 at 00:30; Stop 02/04/18 at 00 :31; Status DC Sodium Chloride 500 ml @ 500 mls/hr 1X ONCE IV Last administered on at 03:47; Start 02/04/18 at 03:30; Stop 02/04/18 at 04:29; Status DC Pramipexole Dihydrochloride (miraPEX) 0.5 mg QHS PO Last administered on at 21:29; Start 02/04/18 at 21:00 Senna/Docusate Sodium (Senna Plus) 1 tab PRN BID PRN PO CONSTIPATION 2ND CHOICE Last administered on 02/05/18at 11:46; Start 02/05/18 at 11:15 Polyethylene Glycol (miraLAX PACKET) 17 gm PRN DAILY PRN PO CONSTIPATION 1ST CHOICE Last administered on 02/05/18at 11:47; Start 02/05/18 at 11:15 Oxycodone HCl (Roxicodone) 10 mg TID PRN PRN PO PAIN Last administered on 08:19; Start 02/05/18 at 13:00; Stop 02/07/18 at 13:28; Status DC Potassium Chloride (Klor-Con) 40 meq 1X ONCE PO Last administered on 09:49; Start 02/06/18 at 08:15; Stop 02/06/18 at 08:16; Status DC Potassium Chloride (Klor-Con) 20 meq [id number] PO Last administered on 09:19; Start 02/07/18 at 08:00 Amoxicillin/ Clavulanate Potassium (Augmentin 875/ 125mg) 1 tab BID PO Last administered on 02/11/18 09:16; Start 02/06/18 at 21:00 Pantoprazole Sodium (Protonix) 40 mg DAILYAC PO Last administered on 02/11/18 06:27; Start 02/07/18 at 07:30 Fluticasone Propionate (Flonase) 2 spray DAILY NS Last administered on 09:31; Start 02/07/18 at 11:00 Alprazolam (Xanax) 0.25 mg PRN Q8HRS PRN PO ANXIETY / AGITATION Last administered on 02/08/18 17:49; Start 02/07/18 at 09:30; Stop 02/09/18 at 10:49 ; Status DC Dicyclomine HCl (Bentyl) 10 mg [id number] PO Last administered on 02/11/18 06:27 ; Start 02/07/18 at 14:00 Simethicone (Gas-X) 80 mg PRN Q4HRS PRN PO GAS / BLOATING; Start 02/07/18 at 13 :30 Atenolol (Tenormin) 25 mg DAILY PO Last administered on 02/11/18 09:21; Start 02/07/18 at 14:00 Non-Formulary Medication (Fluticasone/ Salmeterol (Advair 250-50 Diskus)) 1 puff BID IH ; Start 02/07/18 at 21:00; Status UNV Gabapentin (Neurontin) 400 mg DAILY PO Last administered on 02/11/18 09:19; Start 02/07/18 at 14:00 Meloxicam (Mobic) 7.5 mg DAILY PO Last administered on 02/11/18 09:18; Start 02/07/18 at 14:00 Pramipexole Dihydrochloride (miraPEX) 0.5 mg HS PO ; Start 02/07/18 at 21:00; Stop 02/07/18 at 21:00; Status DC Guaifenesin (MUCINEX ER with DM) 1 tab BID PO Last administered on 02/11/18 09 :18; Start 02/07/18 at 14:00 Oxycodone HCl (Roxicodone) 10 mg PRN Q6HRS PRN PO PAIN Last administered on 06:28; Start 02/07/18 at 13:30 Gabapentin (Neurontin) 300 mg DAILY PO Last administered on 02/11/18 09:19; Start 02/08/18 at 09:00 Budesonide (Pulmicort) 0.5 mg BID NEB Last administered on 02/11/18at 07:44; Start 02/07/18 at 14:30 Albuterol Sulfate (Ventolin Neb Soln) 2.5 mg QID NEB ; Start 02/07/18 at 17:00 Lorazepam (Ativan) 0.5 mg PRN Q8HRS PRN PO ANXIETY / AGITATION Last administered on 02/11/18at 09:30; Start 02/09/18 at 11:00 Lidocaine (Lidoderm) 1 patch DAILY TD Last administered on 02/11/18at 09:22; Start 02/09/18 at 11:00 Miscellaneous (Lidoderm Patch Removal) 1 ea QHS MC Last administered on at 21:29; Start 02/09/18 at 21:00 Diphenhydramine HCl (Benadryl) 25 mg PRN QHS PRN PO INSOMNIA; Start 02/10/18 at 09:15 Active Scripts Active Fluticasone Propionate Nasal [place] (Fluticasone Propionate) 16 Gm [place].susp 2 [place] NS DAILY MDD 1 5 Days Budesonide 0.5 Mg/2 Ml Ampul.neb 0.5 Mg NEB BID MDD 1 14 Days Mucinex Dm Er 600-30 Mg Tablet (Guaifenesin/Dextromethorphan) 1 Each Tab.er.12h 1 Tab PO BID MDD 1 7 Days Alprazolam 0.25 Mg Tablet 0.25 Mg PO PRN Q8HRS PRN Amox Tr-K Clv 875-125 Mg Tab (Amoxicillin/Potassium Clav) 1 Each Tablet 1 Tab PO BID MDD 1 7 Days Prednisone 20 Mg Tablet 40 Mg PO DAILY Albuterol Sulfate Neb Soln (Albuterol Sulfate) 2.5 Mg/3 Ml Vial.neb 2.5 Mg NEB PRN Q2HR PRN 30 Days Advair 250-50 Diskus (Fluticasone/Salmeterol) 1 Each Disk.w.dev 1 Puff IH BID Reported Atenolol 25 Mg Tablet 1 Tab PO DAILY Dicyclomine Hcl 10 Mg Capsule 1 Cap PO PRN Gabapentin 400 Mg Capsule 700 Mg PO DAILY Simethicone 80 Mg Tab.chew 80 Mg PO PRN Duoneb 0.5-3(2.5) Mg/3 Ml (Albuterol/Ipratropium) 3 Ml Ampul.neb 3 Ml NEB QID Mirapex (Pramipexole Di-Hcl) 0.25 Mg Tablet 0.5 Mg PO HS Ferrous Sulfate 325 Mg Tablet 325 Mg PO DAILY Multivitamins (Multivitamin) 1 Each Capsule 1 Each PO Folic Acid 1 Mg Tablet 1 Tab PO DAILY Isosorbide Mononitrate 20 Mg Tablet 60 Mg PO DAILY Probiotic (Lactobacillus Combo No.11) 1 Each Cap.sprink 1 Each PO DAILY Fish Oil ([place]-3 Fatty Acids) 300 Mg Capsule 1,200 Mg PO BID Crestor (Rosuvastatin Calcium) 40 Mg Tablet 1 Tab PO DAILY Aspir 81 (Aspirin) 81 Mg Tablet. 1 Tab PO DAILY Plavix (Clopidogrel Bisulfate) 75 Mg Tablet 75 Mg PO DAILY Oxycodone Hcl 10 Mg Tablet 10 Mg PO QID PRN 10 Days Meloxicam 7.5 Mg Tablet 7.5 Mg PO DAILY Prilosec Otc (Omeprazole Magnesium) 20 Mg Tablet. 20 Mg PO DAILY Famotidine 20 Mg Tablet 20 Mg PO BID Vitals/I & O Vital Sign - Last 24 Hours 02/10/18 02/10/18 02/10/18 02/10/18 11:00 11:52 15:00 15:43 Temp 94.1 94.1 Pulse 83 88 Resp 18 18 B/P (MAP) 95/47 (63) 99/54 (69) Pulse Ox 94 91 94 92 O2 Delivery Nasal Cannula Nasal Cannula Nasal Cannula BiPAP/CPAP O2 Flow Rate 4.0 3.5 4.0 02/10/18 02/10/18 02/10/18 02/10/18 19:00 19:22 20:17 23:00 Temp 98.3 98.3 98.3 98.3 Pulse 100 99 Resp 24 24 B/P (MAP) 135/63 (87) 132/64 (86) Pulse Ox 97 91 94 O2 Delivery Nasal Cannula Nasal Cannula Nasal Cannula Nasal Cannula O2 Flow Rate 4.0 3.0 4.0 4.0 02/11/18 02/11/18 02/11/18 02/11/18 03:00 06:28 07:00 07:47 Temp 97.9 98.4 97.9 98.4 Pulse 97 104 Resp 24 22 B/P (MAP) 145/55 (85) 143/62 (89) Pulse Ox 93 90 90 O2 Delivery Nasal Cannula Nasal Cannula Nasal Cannula Nasal Cannula O2 Flow Rate 4.0 3.5 3.0 2.0 02/11/18 02/11/18 09:21 09:21 Pulse 97 97 B/P (MAP) 145/55 145/55 Intake and Output 02/10/18 02/10/18 02/11/18 15:00 23:00 07:00 Intake Total 80 ml 120 ml 60 ml Balance 80 ml 120 ml 60 ml REBEKA HOLT MD Feb 11, 2018 09:51
[2018-02-11 11:00] VITALS: BP 137/67
--- NOTE | 2018-02-11 11:03 | PDOC ---
PROGRESS NOTES Chief Complaint Chief Complaint Acute on chronic respiratory failure with underlying AECOPD/pulmonary HTN END stage COPD - might even be HOSPICE candidate chronic diastolic CHF: Hypotension: likely from sedation CAD: reactive sinus tach, no ectopies HTN HLD Hypercapnic encephalopathy severe lower [place] pain POA History of Present Illness History of Present Illness Extubated 02/04 Was only intubated overnight This is her second intubation, she was intubated at [facility] maybe for 3 days within the last year LTAC screen ongoing She is not smoking anymore Plan: Awaiting insurance authorization for LTAC Slow recovery Change Xanax to lorazepam per her request Lidoderm patch is helping cont Benadryl for sleep Discussed with RN Vitals Vitals Vital Signs Date Time Temp Pulse Resp B/P (MAP) Pulse Ox O2 Delivery O2 Flow Rate FiO2 02/11/18 09:21 97 145/55 02/11/18 07:47 90 Nasal Cannula 2.0 02/11/18 07:00 98.4 22 98.4 Physical Exam General: Alert, Oriented X3, Cooperative, No acute distress, moderate distress , Other (intubated, but looking around) Heart: Regular rate (sinus tach), Normal S1, Other (distant heart sounds) Lungs: Other (decrease bases) Abdomen: Normal bowel sounds, Soft, No tenderness Extremities: No cyanosis, Other (1+ bilateral LE pitting edema) Skin: No breakdown, No significant lesion Labs LABS Laboratory Tests Test 02/11/18 04:20 White Blood Count 6.5 x10^3/uL (4.0-11.0) Red Blood Count 3.52 x10^6/uL (3.50-5.40) Hemoglobin 11.1 g/dL (12.0-15.5) Hematocrit 34.4 % (36.0-47.0) Mean Corpuscular Volume 98 fL (79-100) Mean Corpuscular Hemoglobin 32 pg (25-35) Mean Corpuscular Hemoglobin Concent 32 g/dL (31-37) Red Cell Distribution Width 14.3 % (11.5-14.5) Platelet Count 459 x10^3/uL (140-400) Neutrophils (%) (Auto) 61 % (31-73) Lymphocytes (%) (Auto) 24 % (24-48) Monocytes (%) (Auto) 12 % (0-9) Eosinophils (%) (Auto) 3 % (0-3) Basophils (%) (Auto) 1 % (0-3) Neutrophils # (Auto) 4.0 x10^3uL (1.8-7.7) Lymphocytes # (Auto) 1.6 x10^3/uL (1.0-4.8) Monocytes # (Auto) 0.7 x10^3/uL (0.0-1.1) Eosinophils # (Auto) 0.2 x10^3/uL (0.0-0.7) Basophils # (Auto) 0.0 x10^3/uL (0.0-0.2) Sodium Level 146 mmol/L (136-145) Potassium Level 4.2 mmol/L (3.5-5.1) Chloride Level 103 mmol/L (98-107) Carbon Dioxide Level 42 mmol/L (21-32) Anion Gap 1 (6-14) Blood Urea Nitrogen 12 mg/dL (7-20) Creatinine 0.6 mg/dL (0.6-1.0) Estimated GFR (Cockcroft-Gault) 101.3 Glucose Level 104 mg/dL (70-99) Calcium Level 9.3 mg/dL (8.5-10.1) Review of Systems Review of Systems Sleep I did not awaken Assessment and Plan Assessmemt and Plan Problems Medical Problems: (1) Respiratory failure Status: Acute Comment Review of Relevant I have reviewed the following items afshin (where applicable) has been applied. Labs Laboratory Tests Test 02/10/18 06:40 02/10/18 08:00 02/11/18 04:20 White Blood Count 8.1 x10^3/uL (4.0-11.0) 6.5 x10^3/uL (4.0-11.0) Red Blood Count 3.67 x10^6/uL (3.50-5.40) 3.52 x10^6/uL (3.50-5.40) Hemoglobin 11.9 g/dL (12.0-15.5) 11.1 g/dL (12.0-15.5) Hematocrit 36.0 % (36.0-47.0) 34.4 % (36.0-47.0) Mean Corpuscular Volume 98 fL (79-100) 98 fL (79-100) Mean Corpuscular Hemoglobin 33 pg (25-35) 32 pg (25-35) Mean Corpuscular Hemoglobin Concent 33 g/dL (31-37) 32 g/dL (31-37) Red Cell Distribution Width 14.3 % (11.5-14.5) 14.3 % (11.5-14.5) Platelet Count 441 x10^3/uL (140-400) 459 x10^3/uL (140-400) Neutrophils (%) (Auto) 69 % (31-73) 61 % (31-73) Lymphocytes (%) (Auto) 18 % (24-48) 24 % (24-48) Monocytes (%) (Auto) 10 % (0-9) 12 % (0-9) Eosinophils (%) (Auto) 3 % (0-3) 3 % (0-3) Basophils (%) (Auto) 1 % (0-3) 1 % (0-3) Neutrophils # (Auto) 5.6 x10^3uL (1.8-7.7) 4.0 x10^3uL (1.8-7.7) Lymphocytes # (Auto) 1.5 x10^3/uL (1.0-4.8) 1.6 x10^3/uL (1.0-4.8) Monocytes # (Auto) 0.8 x10^3/uL (0.0-1.1) 0.7 x10^3/uL (0.0-1.1) Eosinophils # (Auto) 0.2 x10^3/uL (0.0-0.7) 0.2 x10^3/uL (0.0-0.7) Basophils # (Auto) 0.1 x10^3/uL (0.0-0.2) 0.0 x10^3/uL (0.0-0.2) Sodium Level 148 mmol/L (136-145) 146 mmol/L (136-145) Potassium Level 4.1 mmol/L (3.5-5.1) 4.2 mmol/L (3.5-5.1) Chloride Level 103 mmol/L (98-107) 103 mmol/L (98-107) Carbon Dioxide Level 42 mmol/L (21-32) 42 mmol/L (21-32) Anion Gap 3 (6-14) 1 (6-14) Blood Urea Nitrogen 9 mg/dL (7-20) 12 mg/dL (7-20) Creatinine 0.6 mg/dL (0.6-1.0) 0.6 mg/dL (0.6-1.0) Estimated GFR (Cockcroft-Gault) 101.3 101.3 Glucose Level 101 mg/dL (70-99) 104 mg/dL (70-99) Calcium Level 9.4 mg/dL (8.5-10.1) 9.3 mg/dL (8.5-10.1) O2 Saturation 94 % (92-99) Arterial Blood pH 7.34 (7.35-7.45) Arterial Blood pCO2 at Patient Temp 77 mmHg (35-46) Arterial Blood pO2 at Patient Temp 75 mmHg (65-108) Arterial Blood HCO3 41 mmol/L (21-28) Arterial Blood Base Excess 12 mmol/L (-3-3) FiO2 34 Laboratory Tests Test 02/11/18 04:20 White Blood Count 6.5 x10^3/uL (4.0-11.0) Red Blood Count 3.52 x10^6/uL (3.50-5.40) Hemoglobin 11.1 g/dL (12.0-15.5) Hematocrit 34.4 % (36.0-47.0) Mean Corpuscular Volume 98 fL (79-100) Mean Corpuscular Hemoglobin 32 pg (25-35) Mean Corpuscular Hemoglobin Concent 32 g/dL (31-37) Red Cell Distribution Width 14.3 % (11.5-14.5) Platelet Count 459 x10^3/uL (140-400) Neutrophils (%) (Auto) 61 % (31-73) Lymphocytes (%) (Auto) 24 % (24-48) Monocytes (%) (Auto) 12 % (0-9) Eosinophils (%) (Auto) 3 % (0-3) Basophils (%) (Auto) 1 % (0-3) Neutrophils # (Auto) 4.0 x10^3uL (1.8-7.7) Lymphocytes # (Auto) 1.6 x10^3/uL (1.0-4.8) Monocytes # (Auto) 0.7 x10^3/uL (0.0-1.1) Eosinophils # (Auto) 0.2 x10^3/uL (0.0-0.7) Basophils # (Auto) 0.0 x10^3/uL (0.0-0.2) Sodium Level 146 mmol/L (136-145) Potassium Level 4.2 mmol/L (3.5-5.1) Chloride Level 103 mmol/L (98-107) Carbon Dioxide Level 42 mmol/L (21-32) Anion Gap 1 (6-14) Blood Urea Nitrogen 12 mg/dL (7-20) Creatinine 0.6 mg/dL (0.6-1.0) Estimated GFR (Cockcroft-Gault) 101.3 Glucose Level 104 mg/dL (70-99) Calcium Level 9.3 mg/dL (8.5-10.1) Microbiology 02/03/18 Blood Culture - Final, Complete NO GROWTH AFTER 5 DAYS Medications Current Medications Propofol 50 ml @ As Directed STK-MED ONCE IV ; Start 02/03/18 at 18:03; Stop 02/03/18 at 18:04; Status DC Albuterol/ Ipratropium (Duoneb) 3 ml STK-MED ONCE .ROUTE ; Start 02/03/18 at 18 :05; Stop 02/03/18 at 18:06; Status DC Albuterol/ Ipratropium (Duoneb) 3 ml 1X ONCE NEB Last administered on at 18:20; Start 02/03/18 at 18:30; Stop 02/03/18 at 18:31; Status DC Albuterol/ Ipratropium (Duoneb) 3 ml 1X ONCE NEB ; Start 02/03/18 at 18:30; Stop 02/03/18 at 18:31; Status UNV Fentanyl Citrate 30 ml @ 0 mls/hr CONT PRN IV PER PROTOCOL Last administered on 02/04/18at 05:11; Start 02/03/18 at 18:30; Stop 02/06/18 at 13:17; Status DC Propofol 100 ml @ 0 mls/hr CONT PRN IV PER PROTOCOL Last administered on at 03:47; Start 02/03/18 at 18:30; Stop 02/06/18 at 13:18; Status DC Fentanyl Citrate (Fentanyl 2ml Vial) 25 mcg PRN Q1HR PRN IV MILD PAIN AND/OR RASS +1 OR +2; Start 02/03/18 at 18:30; Stop 02/06/18 at 13:20; Status DC Fentanyl Citrate (Fentanyl 2ml Vial) 50 mcg PRN Q1HR PRN IV MOD TO SEVERE PAIN / RASS +3 +4 Last administered on 02/05/18at 19:24; Start 02/03/18 at 18:30; Stop 02/06/18 at 13:20; Status DC Chlorhexidine Gluconate (Peridex) 15 ml BID MM ; Start 02/03/18 at 21:00; Stop 02/04/18 at 07:43; Status DC Norepinephrine Bitartrate 250 ml @ As Directed STK-MED ONCE IV ; Start at 18:41; Stop 02/03/18 at 18:42; Status DC Sodium Chloride 500 ml @ 500 mls/hr 1X ONCE IV Last administered on at 18:30; Start 02/03/18 at 19:00; Stop 02/03/18 at 19:59; Status DC Norepinephrine Bitartrate 250 ml @ 1.875 mls/ hr 1X ONCE IV Last administered on 02/03/18at 18:55; Start 02/03/18 at 19:00; Stop 02/06/18 at 13: 18; Status DC Etomidate (Amidate) 20 mg 1X ONCE IV Last administered on 02/03/18at 17:58; Start 02/03/18 at 19:00; Stop 02/03/18 at 19:02; Status DC Etomidate (Amidate) 20 mg 1X ONCE IV Last administered on 02/03/18at 18:03; Start 02/03/18 at 19:00; Stop 02/03/18 at 19:04; Status DC Succinylcholine Chloride (Anectine) 120 mg 1X ONCE IV Last administered on at 18:03; Start 02/03/18 at 19:00; Stop 02/03/18 at 19:01; Status DC Sodium Chloride 500 ml @ 500 mls/hr 1X ONCE IV ; Start 02/03/18 at 19:00; Stop 02/03/18 at 19:59; Status UNV Albuterol Sulfate (Ventolin Neb Soln) 10 mg 1X ONCE CONT NEB Last administered on 02/03/18at 19:22; Start 02/03/18 at 19:15; Stop 02/03/18 at 19 :16; Status DC Albuterol Sulfate (Ventolin Neb Soln) 2.5 mg STK-MED ONCE .ROUTE ; Start at 19:14; Stop 02/03/18 at 19:15; Status DC Fentanyl Citrate (Fentanyl 2ml Vial) 100 mcg STK-MED ONCE .ROUTE ; Start at 22:34; Stop 02/03/18 at 22:35; Status DC Piperacillin Sod/ Tazobactam Sod (Zosyn Per Pharmacy) 1 each PRN DAILY PRN MC SEE COMMENTS; Start 02/03/18 at 23:15; Stop 02/06/18 at 13:17; Status DC Albuterol Sulfate (Ventolin Neb Soln) 2.5 mg PRN Q2HR PRN NEB SHORTNESS OF BREATH; Start 02/03/18 at 23:15 Aspirin (Ecotrin) 81 mg DAILY PO Last administered on 02/11/18at 09:16; Start 02/04/18 at 09:00 Clopidogrel Bisulfate (Plavix) 75 mg DAILY PO Last administered on 02/11/18at 09 :20; Start 02/04/18 at 09:00 Famotidine (Pepcid) 20 mg BID PO ; Start 02/04/18 at 09:00; Stop 02/04/18 at 09:00; Status DC Ferrous Sulfate (Feosol) 325 mg DAILY PO Last administered on 02/11/18at 09:18; Start 02/04/18 at 09:00 Folic Acid (Folic Acid) 1 mg DAILY PO Last administered on 02/11/18at 09:20; Start 02/04/18 at 09:00 Albuterol/ Ipratropium (Duoneb) 3 ml RTQID NEB Last administered on 02/11/18at 07:44; Start 02/04/18 at 08:00 Isosorbide Mononitrate (Imdur) 60 mg DAILY PO Last administered on 02/11/18at 09 :21; Start 02/04/18 at 09:00 Lactobacillus Rhamnosus (Culturelle) 1 cap BID PO Last administered on at 09:16; Start 02/04/18 at 09:00 Fish Oil (Fish Oil) 1,000 mg BID PO Last administered on 02/11/18at 09:21; Start 02/04/18 at 09:00 Non-Formulary Medication (Omeprazole Magnesium (Prilosec Otc)) 20 mg DAILY PO ; Start 02/04/18 at 09:00; Status UNV Atorvastatin Calcium (Lipitor) 80 mg QHS PO Last administered on 02/10/18at 21: 30; Start 02/04/18 at 21:00 Pantoprazole Sodium (PROTONIX VIAL for IV PUSH) 40 mg DAILYAC IVP Last administered on 02/06/18at 05:19; Start 02/04/18 at 07:30; Stop 02/06/18 at 13: 21; Status DC Enoxaparin Sodium (Lovenox 40mg Syringe) 40 mg QHS SQ Last administered on 02/10at 23:22; Start 02/03/18 at 23:15 Pantoprazole Sodium (PROTONIX VIAL for IV PUSH) 40 mg 1X ONCE IVP ; Start at 00:00; Stop 02/03/18 at 00:01; Status Cancel Piperacillin Sod/ Tazobactam Sod 3.375 gm/Sodium Chloride 50 ml @ 100 mls/hr Q6HRS IV Last administered on 02/06/18at 05:15; Start 02/04/18 at 00:00; Stop 02/06/18 at 11:05; Status DC Sodium Chloride 1,000 ml @ 80 mls/hr [id number] IV Last administered on at 03:20; Start 02/03/18 at 23:45; Stop 02/05/18 at 11:12; Status DC Pantoprazole Sodium (PROTONIX VIAL for IV PUSH) 40 mg 1X ONCE IVP Last administered on 02/04/18at 00:44; Start 02/04/18 at 00:30; Stop 02/04/18 at 00 :31; Status DC Sodium Chloride 500 ml @ 500 mls/hr 1X ONCE IV Last administered on at 03:47; Start 02/04/18 at 03:30; Stop 02/04/18 at 04:29; Status DC Pramipexole Dihydrochloride (miraPEX) 0.5 mg QHS PO Last administered on 21:29; Start 02/04/18 at 21:00 Senna/Docusate Sodium (Senna Plus) 1 tab PRN BID PRN PO CONSTIPATION 2ND CHOICE Last administered on 02/05/18 11:46; Start 02/05/18 at 11:15 Polyethylene Glycol (miraLAX PACKET) 17 gm PRN DAILY PRN PO CONSTIPATION 1ST CHOICE Last administered on 02/05/18 11:47; Start 02/05/18 at 11:15 Oxycodone HCl (Roxicodone) 10 mg TID PRN PRN PO PAIN Last administered on 08:19; Start 02/05/18 at 13:00; Stop 02/07/18 at 13:28; Status DC Potassium Chloride (Klor-Con) 40 meq 1X ONCE PO Last administered on 09:49; Start 02/06/18 at 08:15; Stop 02/06/18 at 08:16; Status DC Potassium Chloride (Klor-Con) 20 meq [id number] PO Last administered on 09:19; Start 02/07/18 at 08:00 Amoxicillin/ Clavulanate Potassium (Augmentin 875/ 125mg) 1 tab BID PO Last administered on 02/11/18 09:16; Start 02/06/18 at 21:00 Pantoprazole Sodium (Protonix) 40 mg DAILYAC PO Last administered on 02/11/18 06:27; Start 02/07/18 at 07:30 Fluticasone Propionate (Flonase) 2 spray DAILY NS Last administered on 09:31; Start 02/07/18 at 11:00 Alprazolam (Xanax) 0.25 mg PRN Q8HRS PRN PO ANXIETY / AGITATION Last administered on 02/08/18 17:49; Start 02/07/18 at 09:30; Stop 02/09/18 at 10:49 ; Status DC Dicyclomine HCl (Bentyl) 10 mg [id number] PO Last administered on 02/11/18 06:27 ; Start 02/07/18 at 14:00 Simethicone (Gas-X) 80 mg PRN Q4HRS PRN PO GAS / BLOATING; Start 02/07/18 at 13 :30 Atenolol (Tenormin) 25 mg DAILY PO Last administered on 02/11/18 09:21; Start 02/07/18 at 14:00 Non-Formulary Medication (Fluticasone/ Salmeterol (Advair 250-50 Diskus)) 1 puff BID IH ; Start 02/07/18 at 21:00; Status UNV Gabapentin (Neurontin) 400 mg DAILY PO Last administered on 02/11/18 09:19; Start 02/07/18 at 14:00 Meloxicam (Mobic) 7.5 mg DAILY PO Last administered on 02/11/18 09:18; Start 02/07/18 at 14:00 Pramipexole Dihydrochloride (miraPEX) 0.5 mg HS PO ; Start 02/07/18 at 21:00; Stop 02/07/18 at 21:00; Status DC Guaifenesin (MUCINEX ER with DM) 1 tab BID PO Last administered on 02/11/18 09 :18; Start 02/07/18 at 14:00 Oxycodone HCl (Roxicodone) 10 mg PRN Q6HRS PRN PO PAIN Last administered on 06:28; Start 02/07/18 at 13:30 Gabapentin (Neurontin) 300 mg DAILY PO Last administered on 02/11/18 09:19; Start 02/08/18 at 09:00 Budesonide (Pulmicort) 0.5 mg BID NEB Last administered on 02/11/18at 07:44; Start 02/07/18 at 14:30 Albuterol Sulfate (Ventolin Neb Soln) 2.5 mg QID NEB ; Start 02/07/18 at 17:00 Lorazepam (Ativan) 0.5 mg PRN Q8HRS PRN PO ANXIETY / AGITATION Last administered on 02/11/18 09:30; Start 02/09/18 at 11:00 Lidocaine (Lidoderm) 1 patch DAILY TD Last administered on 02/11/18 09:22; Start 02/09/18 at 11:00 Miscellaneous (Lidoderm Patch Removal) 1 ea QHS MC Last administered on at 21:29; Start 02/09/18 at 21:00 Diphenhydramine HCl (Benadryl) 25 mg PRN QHS PRN PO INSOMNIA; Start 02/10/18 at 09:15 Active Scripts Active Fluticasone Propionate Nasal [place] (Fluticasone Propionate) 16 Gm [place].susp 2 [place] NS DAILY MDD 1 5 Days Budesonide 0.5 Mg/2 Ml Ampul.neb 0.5 Mg NEB BID MDD 1 14 Days Mucinex Dm Er 600-30 Mg Tablet (Guaifenesin/Dextromethorphan) 1 Each Tab.er.12h 1 Tab PO BID MDD 1 7 Days Alprazolam 0.25 Mg Tablet 0.25 Mg PO PRN Q8HRS PRN Amox Tr-K Clv 875-125 Mg Tab (Amoxicillin/Potassium Clav) 1 Each Tablet 1 Tab PO BID MDD 1 7 Days Prednisone 20 Mg Tablet 40 Mg PO DAILY Albuterol Sulfate Neb Soln (Albuterol Sulfate) 2.5 Mg/3 Ml Vial.neb 2.5 Mg NEB PRN Q2HR PRN 30 Days Advair 250-50 Diskus (Fluticasone/Salmeterol) 1 Each Disk.w.dev 1 Puff IH BID Reported Atenolol 25 Mg Tablet 1 Tab PO DAILY Dicyclomine Hcl 10 Mg Capsule 1 Cap PO PRN Gabapentin 400 Mg Capsule 700 Mg PO DAILY Simethicone 80 Mg Tab.chew 80 Mg PO PRN Duoneb 0.5-3(2.5) Mg/3 Ml (Albuterol/Ipratropium) 3 Ml Ampul.neb 3 Ml NEB QID Mirapex (Pramipexole Di-Hcl) 0.25 Mg Tablet 0.5 Mg PO HS Ferrous Sulfate 325 Mg Tablet 325 Mg PO DAILY Multivitamins (Multivitamin) 1 Each Capsule 1 Each PO Folic Acid 1 Mg Tablet 1 Tab PO DAILY Isosorbide Mononitrate 20 Mg Tablet 60 Mg PO DAILY Probiotic (Lactobacillus Combo No.11) 1 Each Cap.sprink 1 Each PO DAILY Fish Oil ([place]-3 Fatty Acids) 300 Mg Capsule 1,200 Mg PO BID Crestor (Rosuvastatin Calcium) 40 Mg Tablet 1 Tab PO DAILY Aspir 81 (Aspirin) 81 Mg Tablet.dr 1 Tab PO DAILY Plavix (Clopidogrel Bisulfate) 75 Mg Tablet 75 Mg PO DAILY Oxycodone Hcl 10 Mg Tablet 10 Mg PO QID PRN 10 Days Meloxicam 7.5 Mg Tablet 7.5 Mg PO DAILY Prilosec Otc (Omeprazole Magnesium) 20 Mg Tablet.dr 20 Mg PO DAILY Famotidine 20 Mg Tablet 20 Mg PO BID Vitals/I & O Vital Sign - Last 24 Hours 02/10/18 02/10/18 02/10/18 02/10/18 11:52 15:00 15:43 19:00 Temp 94.1 98.3 94.1 98.3 Pulse 88 100 Resp 18 24 B/P (MAP) 99/54 (69) 135/63 (87) Pulse Ox 91 94 92 97 O2 Delivery Nasal Cannula Nasal Cannula BiPAP/CPAP Nasal Cannula O2 Flow Rate 3.5 4.0 4.0 02/10/18 02/10/18 02/10/18 02/11/18 19:22 20:17 23:00 03:00 Temp 98.3 97.9 98.3 97.9 Pulse 99 97 Resp 24 24 B/P (MAP) 132/64 (86) 145/55 (85) Pulse Ox 91 94 93 O2 Delivery Nasal Cannula Nasal Cannula Nasal Cannula Nasal Cannula O2 Flow Rate 3.0 4.0 4.0 4.0 02/11/18 02/11/18 02/11/18 02/11/18 06:28 07:00 07:47 09:21 Temp 98.4 98.4 Pulse 104 97 Resp 22 B/P (MAP) 143/62 (89) 145/55 Pulse Ox 90 90 O2 Delivery Nasal Cannula Nasal Cannula Nasal Cannula O2 Flow Rate 3.5 3.0 2.0 02/11/18 09:21 Pulse 97 B/P (MAP) 145/55 Intake and Output 02/10/18 02/10/18 02/11/18 15:00 23:00 07:00 Intake Total 80 ml 120 ml 60 ml Balance 80 ml 120 ml 60 ml ARNOL RASHID MD Feb 11, 2018 11:03
[2018-02-11 15:00] VITALS: BP 132/62
--- NOTE | 2018-02-11 15:51 | PDOC ---
PULMONARY PROGRESS NOTES Subjective extubated 02/04 NO RESP DISTRESS Vitals Vital Signs Date Time Temp Pulse Resp B/P (MAP) Pulse Ox O2 Delivery O2 Flow Rate FiO2 02/11/18 12:37 91 Nasal Cannula 3.5 02/11/18 11:00 98.3 99 22 137/67 (90) 98.3 General: Alert, No acute distress Lungs: Other (decrease bases) Cardiovascular: S1, S2 Abdomen: Soft, Non-tender Neuro Exam: Alert Extremities: No Edema Skin: Warm Labs Laboratory Tests Test 02/10/18 06:40 02/10/18 08:00 02/11/18 04:20 White Blood Count 8.1 x10^3/uL (4.0-11.0) 6.5 x10^3/uL (4.0-11.0) Red Blood Count 3.67 x10^6/uL (3.50-5.40) 3.52 x10^6/uL (3.50-5.40) Hemoglobin 11.9 g/dL (12.0-15.5) 11.1 g/dL (12.0-15.5) Hematocrit 36.0 % (36.0-47.0) 34.4 % (36.0-47.0) Mean Corpuscular Volume 98 fL (79-100) 98 fL (79-100) Mean Corpuscular Hemoglobin 33 pg (25-35) 32 pg (25-35) Mean Corpuscular Hemoglobin Concent 33 g/dL (31-37) 32 g/dL (31-37) Red Cell Distribution Width 14.3 % (11.5-14.5) 14.3 % (11.5-14.5) Platelet Count 441 x10^3/uL (140-400) 459 x10^3/uL (140-400) Neutrophils (%) (Auto) 69 % (31-73) 61 % (31-73) Lymphocytes (%) (Auto) 18 % (24-48) 24 % (24-48) Monocytes (%) (Auto) 10 % (0-9) 12 % (0-9) Eosinophils (%) (Auto) 3 % (0-3) 3 % (0-3) Basophils (%) (Auto) 1 % (0-3) 1 % (0-3) Neutrophils # (Auto) 5.6 x10^3uL (1.8-7.7) 4.0 x10^3uL (1.8-7.7) Lymphocytes # (Auto) 1.5 x10^3/uL (1.0-4.8) 1.6 x10^3/uL (1.0-4.8) Monocytes # (Auto) 0.8 x10^3/uL (0.0-1.1) 0.7 x10^3/uL (0.0-1.1) Eosinophils # (Auto) 0.2 x10^3/uL (0.0-0.7) 0.2 x10^3/uL (0.0-0.7) Basophils # (Auto) 0.1 x10^3/uL (0.0-0.2) 0.0 x10^3/uL (0.0-0.2) Sodium Level 148 mmol/L (136-145) 146 mmol/L (136-145) Potassium Level 4.1 mmol/L (3.5-5.1) 4.2 mmol/L (3.5-5.1) Chloride Level 103 mmol/L (98-107) 103 mmol/L (98-107) Carbon Dioxide Level 42 mmol/L (21-32) 42 mmol/L (21-32) Anion Gap 3 (6-14) 1 (6-14) Blood Urea Nitrogen 9 mg/dL (7-20) 12 mg/dL (7-20) Creatinine 0.6 mg/dL (0.6-1.0) 0.6 mg/dL (0.6-1.0) Estimated GFR (Cockcroft-Gault) 101.3 101.3 Glucose Level 101 mg/dL (70-99) 104 mg/dL (70-99) Calcium Level 9.4 mg/dL (8.5-10.1) 9.3 mg/dL (8.5-10.1) O2 Saturation 94 % (92-99) Arterial Blood pH 7.34 (7.35-7.45) Arterial Blood pCO2 at Patient Temp 77 mmHg (35-46) Arterial Blood pO2 at Patient Temp 75 mmHg (65-108) Arterial Blood HCO3 41 mmol/L (21-28) Arterial Blood Base Excess 12 mmol/L (-3-3) FiO2 34 Laboratory Tests Test 02/11/18 04:20 White Blood Count 6.5 x10^3/uL (4.0-11.0) Red Blood Count 3.52 x10^6/uL (3.50-5.40) Hemoglobin 11.1 g/dL (12.0-15.5) Hematocrit 34.4 % (36.0-47.0) Mean Corpuscular Volume 98 fL (79-100) Mean Corpuscular Hemoglobin 32 pg (25-35) Mean Corpuscular Hemoglobin Concent 32 g/dL (31-37) Red Cell Distribution Width 14.3 % (11.5-14.5) Platelet Count 459 x10^3/uL (140-400) Neutrophils (%) (Auto) 61 % (31-73) Lymphocytes (%) (Auto) 24 % (24-48) Monocytes (%) (Auto) 12 % (0-9) Eosinophils (%) (Auto) 3 % (0-3) Basophils (%) (Auto) 1 % (0-3) Neutrophils # (Auto) 4.0 x10^3uL (1.8-7.7) Lymphocytes # (Auto) 1.6 x10^3/uL (1.0-4.8) Monocytes # (Auto) 0.7 x10^3/uL (0.0-1.1) Eosinophils # (Auto) 0.2 x10^3/uL (0.0-0.7) Basophils # (Auto) 0.0 x10^3/uL (0.0-0.2) Sodium Level 146 mmol/L (136-145) Potassium Level 4.2 mmol/L (3.5-5.1) Chloride Level 103 mmol/L (98-107) Carbon Dioxide Level 42 mmol/L (21-32) Anion Gap 1 (6-14) Blood Urea Nitrogen 12 mg/dL (7-20) Creatinine 0.6 mg/dL (0.6-1.0) Estimated GFR (Cockcroft-Gault) 101.3 Glucose Level 104 mg/dL (70-99) Calcium Level 9.3 mg/dL (8.5-10.1) Medications Active Scripts Medications Dose Route/Sig Max Daily Dose Days Date Category Prednisone 20 Mg Tablet 40 Mg PO DAILY 02/11/17 Rx Albuterol Sulfate Neb Soln (Albuterol Sulfate) 2.5 Mg/3 Ml Vial.neb 2.5 Mg NEB PRN Q2HR PRN 30 02/11/17 Rx Advair 250-50 Diskus (Fluticasone/Salmeterol) 1 Each Disk.w.dev 1 Puff IH BID 02/11/17 Rx Atenolol 25 Mg Tablet 1 Tab PO DAILY 02/10/17 Reported Dicyclomine Hcl 10 Mg Capsule 1 Cap PO PRN 02/09/17 Reported Gabapentin 400 Mg Capsule 700 Mg PO DAILY 02/09/17 Reported Simethicone 80 Mg Tab.chew 80 Mg PO PRN 02/09/17 Reported Duoneb 0.5-3(2.5) Mg/3 Ml (Albuterol/Ipratropium) 3 Ml Ampul.neb 3 Ml NEB QID 02/09/17 Reported Mirapex (Pramipexole Di-Hcl) 0.25 Mg Tablet 0.5 Mg PO HS 02/09/17 Reported Ferrous Sulfate 325 Mg Tablet 325 Mg PO DAILY 12/04/16 Reported Multivitamins (Multivitamin) 1 Each Capsule 1 Each PO 05/30/16 Reported Folic Acid 1 Mg Tablet 1 Tab PO DAILY 05/30/16 Reported Isosorbide Mononitrate 20 Mg Tablet 60 Mg PO DAILY 05/30/16 Reported Probiotic (Lactobacillus Combo No.11) 1 Each Cap.sprink 1 Each PO DAILY 05/30/16 Reported Fish Oil (Redkey-3 Fatty Acids) 300 Mg Capsule 1,200 Mg PO BID 05/30/16 Reported Crestor (Rosuvastatin Calcium) 40 Mg Tablet 1 Tab PO DAILY 05/30/16 Reported Aspir 81 (Aspirin) 81 Mg Tablet.dr 1 Tab PO DAILY 05/30/16 Reported Plavix (Clopidogrel Bisulfate) 75 Mg Tablet 75 Mg PO DAILY 02/28/16 Reported Oxycodone Hcl 10 Mg Tablet 10 Mg PO PRN TID PRN 02/28/16 Reported Meloxicam 7.5 Mg Tablet 7.5 Mg PO DAILY 02/28/16 Reported Prilosec Otc (Omeprazole Magnesium) 20 Mg Tablet.dr 20 Mg PO DAILY 02/28/16 Reported Famotidine 20 Mg Tablet 20 Mg PO BID 02/28/16 Reported Impression . 1. Dzskm-[id number]-sadlynb hypercapnic respiratory failure secondary to acute exacerbation of chronic obstructive pulmonary disease. extubated 02/05 2. 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 3. Acute toxic encephalopathy secondary to severe hypercarbia. resolved. 4. No definite consolidation seen on the chest x-ray with mildly prominent interstitial markings. 5. History of percutaneous coronary intervention. 6. Post nasal drip 7. Anxiety disorder Plan . OK TO TRANSFER TO [facility] FOLLOW UP IN OFFICE ONCE DC PROGNOSIS IS POOR INFORMED PT SHE NEEDS TO LOOSE WEIGHT AND PERFORM PULM REHAB PRETTY VILA MD Feb 11, 2018 15:51
--- NOTE | 2018-02-11 15:53 | PDOC3 ---
Discharge Summary Visit Information Date of Admission: Feb 03, 2018 Date of Discharge: Feb 11, 2018 Admitting Diagnosis Comment: ACute on chronic respiratory failure with underlying AECOPD/pulmonary HTN END stage COPD - might even be HOSPICE candidate chronic diastolic CHF: Hypotension: likely from sedation CAD: reactive sinus tach, no ectopies HTN HLD Hypercapnic encephalopathy severe lower [place] pain POA Final Diagnosis Problems Medical Problems: (1) Respiratory failure Status: Acute Brief Hospital Course Allergies Allergies Coded Allergies Type Severity Reaction Last Updated Verified bupropion Allergy Intermediate hives 12/04/16 Yes Vital Signs Vital Signs Date Time Temp Pulse Resp B/P (MAP) Pulse Ox O2 Delivery O2 Flow Rate FiO2 02/11/18 12:37 91 Nasal Cannula 3.5 02/11/18 11:00 98.3 99 22 137/67 (90) 98.3 Lab Results Laboratory Tests Test 02/10/18 06:40 02/10/18 08:00 02/11/18 04:20 White Blood Count 8.1 x10^3/uL (4.0-11.0) 6.5 x10^3/uL (4.0-11.0) Red Blood Count 3.67 x10^6/uL (3.50-5.40) 3.52 x10^6/uL (3.50-5.40) Hemoglobin 11.9 g/dL (12.0-15.5) 11.1 g/dL (12.0-15.5) Hematocrit 36.0 % (36.0-47.0) 34.4 % (36.0-47.0) Mean Corpuscular Volume 98 fL (79-100) 98 fL (79-100) Mean Corpuscular Hemoglobin 33 pg (25-35) 32 pg (25-35) Mean Corpuscular Hemoglobin Concent 33 g/dL (31-37) 32 g/dL (31-37) Red Cell Distribution Width 14.3 % (11.5-14.5) 14.3 % (11.5-14.5) Platelet Count 441 x10^3/uL (140-400) 459 x10^3/uL (140-400) Neutrophils (%) (Auto) 69 % (31-73) 61 % (31-73) Lymphocytes (%) (Auto) 18 % (24-48) 24 % (24-48) Monocytes (%) (Auto) 10 % (0-9) 12 % (0-9) Eosinophils (%) (Auto) 3 % (0-3) 3 % (0-3) Basophils (%) (Auto) 1 % (0-3) 1 % (0-3) Neutrophils # (Auto) 5.6 x10^3uL (1.8-7.7) 4.0 x10^3uL (1.8-7.7) Lymphocytes # (Auto) 1.5 x10^3/uL (1.0-4.8) 1.6 x10^3/uL (1.0-4.8) Monocytes # (Auto) 0.8 x10^3/uL (0.0-1.1) 0.7 x10^3/uL (0.0-1.1) Eosinophils # (Auto) 0.2 x10^3/uL (0.0-0.7) 0.2 x10^3/uL (0.0-0.7) Basophils # (Auto) 0.1 x10^3/uL (0.0-0.2) 0.0 x10^3/uL (0.0-0.2) Sodium Level 148 mmol/L (136-145) 146 mmol/L (136-145) Potassium Level 4.1 mmol/L (3.5-5.1) 4.2 mmol/L (3.5-5.1) Chloride Level 103 mmol/L (98-107) 103 mmol/L (98-107) Carbon Dioxide Level 42 mmol/L (21-32) 42 mmol/L (21-32) Anion Gap 3 (6-14) 1 (6-14) Blood Urea Nitrogen 9 mg/dL (7-20) 12 mg/dL (7-20) Creatinine 0.6 mg/dL (0.6-1.0) 0.6 mg/dL (0.6-1.0) Estimated GFR (Cockcroft-Gault) 101.3 101.3 Glucose Level 101 mg/dL (70-99) 104 mg/dL (70-99) Calcium Level 9.4 mg/dL (8.5-10.1) 9.3 mg/dL (8.5-10.1) O2 Saturation 94 % (92-99) Arterial Blood pH 7.34 (7.35-7.45) Arterial Blood pCO2 at Patient Temp 77 mmHg (35-46) Arterial Blood pO2 at Patient Temp 75 mmHg (65-108) Arterial Blood HCO3 41 mmol/L (21-28) Arterial Blood Base Excess 12 mmol/L (-3-3) FiO2 34 Laboratory Tests Test 02/11/18 04:20 White Blood Count 6.5 x10^3/uL (4.0-11.0) Red Blood Count 3.52 x10^6/uL (3.50-5.40) Hemoglobin 11.1 g/dL (12.0-15.5) Hematocrit 34.4 % (36.0-47.0) Mean Corpuscular Volume 98 fL (79-100) Mean Corpuscular Hemoglobin 32 pg (25-35) Mean Corpuscular Hemoglobin Concent 32 g/dL (31-37) Red Cell Distribution Width 14.3 % (11.5-14.5) Platelet Count 459 x10^3/uL (140-400) Neutrophils (%) (Auto) 61 % (31-73) Lymphocytes (%) (Auto) 24 % (24-48) Monocytes (%) (Auto) 12 % (0-9) Eosinophils (%) (Auto) 3 % (0-3) Basophils (%) (Auto) 1 % (0-3) Neutrophils # (Auto) 4.0 x10^3uL (1.8-7.7) Lymphocytes # (Auto) 1.6 x10^3/uL (1.0-4.8) Monocytes # (Auto) 0.7 x10^3/uL (0.0-1.1) Eosinophils # (Auto) 0.2 x10^3/uL (0.0-0.7) Basophils # (Auto) 0.0 x10^3/uL (0.0-0.2) Sodium Level 146 mmol/L (136-145) Potassium Level 4.2 mmol/L (3.5-5.1) Chloride Level 103 mmol/L (98-107) Carbon Dioxide Level 42 mmol/L (21-32) Anion Gap 1 (6-14) Blood Urea Nitrogen 12 mg/dL (7-20) Creatinine 0.6 mg/dL (0.6-1.0) Estimated GFR (Cockcroft-Gault) 101.3 Glucose Level 104 mg/dL (70-99) Calcium Level 9.3 mg/dL (8.5-10.1) Brief Hospital Course Ms. Valencia is a 63 old bad COPD/end stage. admitted for 7 days, needing BIPAP. Was very close to intubation, CO managed with pulmo, MIght even be hospice to be honest,. HAs been to ltac before.NO PNA< Has also chronic diastolic HF> She sleeps leaning forward, 2 notes today. Needs ;TAC with pulmo so accepted Discharge Information Condition at Discharge: Stable Disposition/Orders: Other (LTAC) Scheduled Amoxicillin/Potassium Clav (Amox Tr-K Clv 875-125 Mg Tab) 1 Each Tablet, 1 TAB PO BID for repi faltre MDD 1 for 7 Days, #14 Prescribed by: ARNOL RASHID on 02/09/18 0857 Aspirin (Aspir 81) 81 Mg Tablet.dr, 1 TAB PO DAILY, #30 Ref 5 (Reported) Entered as Reported by: MACEY MARQUEZ on 05/30/16 1602 Last Action: Continued on 02/03/182304 by FAUSTO LEMUS MD Atenolol (Atenolol) 25 Mg Tablet, 1 TAB PO DAILY, #30 Ref 5 (Reported) Entered as Reported by: VERÓNICA BUITRAGO on 02/10/17 0945 Last Action: Converted on 02/07/18 132 by FAUSTO LEMUS MD Budesonide (Budesonide) 0.5 Mg/2 Ml Ampul.neb, 0.5 MG NEB BID for soa MDD 1 for 14 Days Prescribed by: ARNOL RASHID on 02/09/18 0857 Clopidogrel Bisulfate (Plavix) 75 Mg Tablet, 75 MG PO DAILY for TO PREVENT BLOOD CLOTS, #30 Ref 0 (Reported) Entered as Reported by: ERIKA MULLINS on 02/28/16 0954 Last Action: Continued on 02/03/182304 by FAUSTO LEMUS MD Dicyclomine Hcl (Dicyclomine Hcl) 10 Mg Capsule, 1 CAP PO PRN, #90 Ref 11 ( Reported) Entered as Reported by: EMEKA LEVY on 02/09/17 0953 Last Action: Continued on 02/07/18 1320 by FAUSTO LEMUS MD Famotidine (Famotidine) 20 Mg Tablet, 20 MG PO BID, (Reported) Entered as Reported by: ERIKA MULLINS on 02/28/16 0953 Last Action: Continued on 02/03/182304 by FAUSTO LEMUS MD Ferrous Sulfate (Ferrous Sulfate) 325 Mg Tablet, 325 MG PO DAILY, (Reported) Entered as Reported by: MARCELINA RODRIGUEZ on 12/04/16 0724 Last Action: Continued on 02/03/182304 by FAUSTO LEMUS MD Fluticasone Propionate (Fluticasone Propionate Nasal [place]) 16 Gm [place].susp, 2 SPRAY NS DAILY for dry nose MDD 1 for 5 Days Prescribed by: ARNOL RASHID on 02/09/18 0857 Fluticasone/Salmeterol (Advair 250-50 Diskus) 1 Each Disk.w.dev, 1 PUFF IH BID, #3 Ref 0 Prescribed by: CORBIN CHATMAN MD on 02/11/17 1155 Last Action: Converted on 02/07/181319 by FAUSTO LEMUS MD Folic Acid (Folic Acid) 1 Mg Tablet, 1 TAB PO DAILY, #90 Ref 1 (Reported) Entered as Reported by: MACEY MARQUEZ on 05/30/16 1602 Last Action: Continued on 02/03/182304 by FAUSTO LEMUS MD Gabapentin (Gabapentin) 400 Mg Capsule, 700 MG PO DAILY, (Reported) Entered as Reported by: EMEKA LEVY on 02/09/17 0952 Last Action: Converted on 02/07/181319 by FAUSTO LEMUS MD Guaifenesin/Dextromethorphan (Mucinex Dm Er 600-30 Mg Tablet) 1 Each Tab.er.12h , 1 TAB PO BID for low K MDD 1 for 7 Days, #14 Prescribed by: ARNOL RASHID on 02/09/18 0857 Ipratropium/Albuterol Sulfate (Duoneb 0.5-3(2.5) Mg/3 Ml) 3 Ml Ampul.neb, 3 ML NEB QID, (Reported) Entered as Reported by: EMEKA LEVY on 02/09/17 0949 Last Action: Continued on 02/03/182304 by FAUSTO LEMUS MD Isosorbide Mononitrate (Isosorbide Mononitrate) 20 Mg Tablet, 60 MG PO DAILY, ( Reported) Entered as Reported by: MACEY MARQUEZ on 05/30/161601 Last Action: Converted on 02/03/182304 by FAUSTO LEMUS MD Lactobacillus Combo No.11 (Probiotic) 1 Each Cap.sprink, 1 EACH PO DAILY, ( Reported) Entered as Reported by: MACEY MARQUEZ on 05/30/16 160 Last Action: Converted on 02/03/182304 by FAUSTO LEMUS MD Meloxicam (Meloxicam) 7.5 Mg Tablet, 7.5 MG PO DAILY, (Reported) Entered as Reported by: ERIKA MULLINS on 02/28/1653 Last Action: Converted on 02/07/181319 by FAUSTO LEMUS MD [place]-3 Fatty Acids (Fish Oil) 300 Mg Capsule, 1,200 MG PO BID, (Reported) Entered as Reported by: MACEY MARQUEZ on 05/30/161601 Last Action: Converted on 02/03/182304 by FAUSTO LEMUS MD Omeprazole Magnesium (Prilosec Otc) 20 Mg Tablet.dr, 20 MG PO DAILY, (Reported) Entered as Reported by: ERIKA MULLINS on 02/28/16 0953 Last Action: Converted on 02/03/182304 by FAUSTO LEMUS MD Pramipexole Di-Hcl (Mirapex) 0.25 Mg Tablet, 0.5 MG PO HS, (Reported) Entered as Reported by: EMEKA LEVY on 02/09/17 0949 Last Action: Converted on 02/07/181319 by FAUSTO LEMUS MD Prednisone (Prednisone) 20 Mg Tablet, 40 MG PO DAILY, #30 Prescribed by: CORBIN CHATMAN MD on 02/11/17 1453 Last Action: HELD on 02/07/181319 by FAUSTO LEMUS MD Rosuvastatin Calcium (Crestor) 40 Mg Tablet, 1 TAB PO DAILY, #30 Ref 5 (Reported ) Entered as Reported by: MACEY MARQUEZ on 05/30/16 160 Last Action: Converted on 02/03/182304 by FAUSTO LEMUS MD Simethicone (Simethicone) 80 Mg Tab.chew, 80 MG PO PRN, (Reported) Entered as Reported by: EMEKA LEVY on 02/09/17 0951 Last Action: Continued on 02/07/181319 by FAUSTO LEMUS MD Scheduled PRN Albuterol Sulfate (Albuterol Sulfate Neb Soln) 2.5 Mg/3 Ml Vial.neb, 2.5 MG NEB PRN Q2HR PRN for SHORTNESS OF BREATH for 30 Days Prescribed by: CORBIN CHATMAN MD on 02/11/17 1155 Last Action: Continued on 02/03/18 2305 by FAUSTO LEMUS MD Alprazolam (Alprazolam) 0.25 Mg Tablet, 0.25 MG PO PRN Q8HRS PRN for ANXIETY / AGITATION, #20 Prescribed by: ARNOL RASHID on 02/09/18 0857 Oxycodone Hcl (Oxycodone Hcl) 10 Mg Tablet, 10 MG PO QID PRN for PAIN for 10 Days, #40 Ref 0 (Reported) Entered as Reported by: ERIKA MULLINS on 02/28/16 0954 Last Action: Edited on 02/07/181319 by FAUSTO LEMUS MD Miscellaneous Medications Multivitamin (Multivitamins) 1 Each Capsule, 1 EACH PO, (Reported) Entered as Reported by: MACEY MARQUEZ on 05/30/16 1602 Last Action: HELD on 02/07/181319 by MD GAY HESS CHERRIE Y MD Feb 11, 2018 15:53
--- NOTE | 2018-02-11 16:08 | DISCH ---
DISCHARGE DISCHARGE INFORMATION: DISCHARGE DATE: Feb 11, 2018 FINAL DIAGNOSIS Problems Medical Problems: (1) Respiratory failure Status: Acute CONDITION ON DISCHARGE: Stable CODE STATUS: Code Status: Full MCFP: SNF STAY <30 DAYS: No HOSPICE: HOSPICE: No HOSPICE EVAL & TREAT: No LTAC: ADMIT TO LTAC: Yes POST DISCHARGE ORDERS: ACTIVITY ORDERS: No restrictions, Activity as tolerated WEIGHT BEARING STATUS: No restrictions, As tolerated DIET AFTER DISCHARGE: Regular CHECKS AFTER DISCHARGE: CHECKS AFTER DISCHARGE: Check blood press - daily TREATMENT/EQUIPMENT ORDERS: ADAPTIVE EQUIPMENT NEEDED: Commode, Front wheeled walker Physical Therapy For: Evalulation/Treatment Occupational Therapy For: Evaluation/Treatment Speech Language Pathology For: Swallow Cognition DISCHARGE MEDICATIONS: Home Meds Active Scripts Fluticasone Propionate (FLUTICASONE PROPIONATE NASAL SPRAY) 16 Gm [place].susp, 2 SPRAY NS DAILY for dry nose MDD 1 for 5 Days, SPRAY Prov:ARNOL RASHID MD 02/09/18 Budesonide (BUDESONIDE) 0.5 Mg/2 Ml Ampul.neb, 0.5 MG NEB BID for soa MDD 1 for 14 Days, EACH Prov:ARNOL RASHID MD 02/09/18 Guaifenesin/Dextromethorphan (MUCINEX DM ER 600-30 MG TABLET) 1 Each Tab.er.12h , 1 TAB PO BID for low K MDD 1 for 7 Days, #14 TAB.SR Prov:ARNOL RASHID MD 02/09/18 Alprazolam (ALPRAZOLAM) 0.25 Mg Tablet, 0.25 MG PO PRN Q8HRS PRN for ANXIETY / AGITATION, #20 TAB Prov:ARNOL RASHID MD 02/09/18 Amoxicillin/Potassium Clav (AMOX TR-K CLV 875-125 MG TAB) 1 Each Tablet, 1 TAB PO BID for repi faltre MDD 1 for 7 Days, #14 TAB Prov:ARNOL RASHID MD 02/09/18 Prednisone (PREDNISONE) 20 Mg Tablet, 40 MG PO DAILY, #30 TAB Prov:CORBIN CHATMAN MD 02/11/17 Albuterol Sulfate (ALBUTEROL SULFATE NEB SOLN) 2.5 Mg/3 Ml Vial.neb, 2.5 MG NEB PRN Q2HR PRN for SHORTNESS OF BREATH for 30 Days, EACH Prov:CORBIN CHATMAN MD 02/11/17 Fluticasone/Salmeterol (ADVAIR 250-50 DISKUS) 1 Each Disk.w.dev, 1 PUFF IH BID, #3 INHALER 0 Refills Prov:CORBIN CHATMAN MD 02/11/17 Reported Medications Atenolol (ATENOLOL) 25 Mg Tablet, 1 TAB PO DAILY, #30 TAB 5 Refills 02/10/17 Dicyclomine Hcl (DICYCLOMINE HCL) 10 Mg Capsule, 1 CAP PO PRN, #90 CAP 11 Refills 02/09/17 Gabapentin (GABAPENTIN) 400 Mg Capsule, 700 MG PO DAILY, CAP 02/09/17 Simethicone (SIMETHICONE) 80 Mg Tab.chew, 80 MG PO PRN, TAB.CHEW 02/09/17 Ipratropium/Albuterol Sulfate (DUONEB 0.5-3(2.5) MG/3 ML) 3 Ml Ampul.neb, 3 ML NEB QID, EACH 02/09/17 Pramipexole Di-Hcl (MIRAPEX) 0.25 Mg Tablet, 0.5 MG PO HS, TAB 02/09/17 Ferrous Sulfate (FERROUS SULFATE) 325 Mg Tablet, 325 MG PO DAILY, TAB 12/04/16 Multivitamin (MULTIVITAMINS) 1 Each Capsule, 1 EACH PO 05/30/16 Folic Acid (FOLIC ACID) 1 Mg Tablet, 1 TAB PO DAILY, #90 TAB 1 Refill 05/30/16 Isosorbide Mononitrate (ISOSORBIDE MONONITRATE) 20 Mg Tablet, 60 MG PO DAILY, TAB 05/30/16 Lactobacillus Combo No.11 (PROBIOTIC) 1 Each Cap.sprink, 1 EACH PO DAILY 05/30/16 [place]-3 Fatty Acids (FISH OIL) 300 Mg Capsule, 1200 MG PO BID 05/30/16 Rosuvastatin Calcium (CRESTOR) 40 Mg Tablet, 1 TAB PO DAILY, #30 TAB 5 Refills 05/30/16 Aspirin (ASPIR 81) 81 Mg Tablet.dr, 1 TAB PO DAILY, #30 TAB 5 Refills 05/30/16 Clopidogrel Bisulfate (PLAVIX) 75 Mg Tablet, 75 MG PO DAILY for TO PREVENT BLOOD CLOTS, #30 TAB 0 Refills 02/28/16 Oxycodone Hcl (OXYCODONE HCL) 10 Mg Tablet, 10 MG PO QID PRN for PAIN for 10 Days, #40 TAB 0 Refills 02/28/16 Meloxicam (MELOXICAM) 7.5 Mg Tablet, 7.5 MG PO DAILY, TAB 02/28/16 Omeprazole Magnesium (PRILOSEC OTC) 20 Mg Tablet.dr, 20 MG PO DAILY, TAB 02/28/16 Famotidine (FAMOTIDINE) 20 Mg Tablet, 20 MG PO BID, TAB 02/28/16 ARNOL RASHID MD Feb 11, 2018 16:08
--- NOTE | 2018-02-12 10:48 | SLEEP ---
DATE OF STUDY: 02/09/2018 NOCTURNAL OXIMETRY ATTENDING PHYSICIAN: Dr. Dallas. The patient's mean oxygen saturations were 92%. The patient started to desaturate at the beginning of the study and saturations were recorded as 83%. The patient was then placed on 32% FiO2, which was further increased to 36% FiO2 in the middle of the night and then towards the later half of the night it was weaned down to 32% FiO2. The nocturnal oximetry study was predominantly performed on 3 liters of oxygen. The patient spent 25% of the time with saturations of less than 90%, which is 2 hour and 10 minutes. Lowest level was 67%. IMPRESSION: Nocturnal hypoxia. This study was performed on 3 liters. RECOMMENDATIONS: 1. Continue 3 liters of oxygen at nighttime. 2. Rule out cardiac and pulmonary etiologies of nocturnal hypoxia. 3. Consider full night polysomnogram if clinical suspicion for sleep apnea is high. PRERNA CALHOUN MD DR: MINGO/sarbjit JOB#: [id number] / [id number] FAUSTO Gomez MD
== END 2018-02-11 17:50 | DRG 208 ==
LOC: ER 16:28 → 1 WEST ICU 18:30 → 5 NORTH 02-05 20:51
PROVIDERS: ADMIT Family Medicine; ATTEND Family Medicine
PROC: 5A09357 Assistance with Respiratory Ventilation, Less than 24 Consecutive Hours, Continuous Positive Airway Pressure (ICD-10-PCS; 2018-02-03)
PROC: 5A1935Z Respiratory Ventilation, Less than 24 Consecutive Hours (ICD-10-PCS; principal; 2018-02-04)
PROC: 5A09357 Assistance with Respiratory Ventilation, Less than 24 Consecutive Hours, Continuous Positive Airway Pressure (ICD-10-PCS; 2018-02-06)
PROC: 5A09357 Assistance with Respiratory Ventilation, Less than 24 Consecutive Hours, Continuous Positive Airway Pressure (ICD-10-PCS; 2018-02-07)
PROC: 5A09357 Assistance with Respiratory Ventilation, Less than 24 Consecutive Hours, Continuous Positive Airway Pressure (ICD-10-PCS; 2018-02-08)
PROC: 5A09357 Assistance with Respiratory Ventilation, Less than 24 Consecutive Hours, Continuous Positive Airway Pressure (ICD-10-PCS; 2018-02-09)
PROC: 5A09357 Assistance with Respiratory Ventilation, Less than 24 Consecutive Hours, Continuous Positive Airway Pressure (ICD-10-PCS; 2018-02-10)
DX: J96.22 Acute and chronic respiratory failure with hypercapnia (principal); G92 Toxic encephalopathy; N18.6 End stage renal disease; I13.2 Hypertensive heart and chronic kidney disease with heart failure and with stage 5 chronic kidney disease, or end stage renal disease; G93.1 Anoxic brain damage, not elsewhere classified; I50.32 Chronic diastolic (congestive) heart failure; J44.1 Chronic obstructive pulmonary disease with (acute) exacerbation; E66.9 Obesity, unspecified; E78.00 Pure hypercholesterolemia, unspecified; E78.5 Hyperlipidemia, unspecified; F17.210 Nicotine dependence, cigarettes, uncomplicated; F41.9 Anxiety disorder, unspecified; G47.33 Obstructive sleep apnea (adult) (pediatric); M51.36 Other intervertebral disc degeneration, lumbar region; I25.10 Atherosclerotic heart disease of native coronary artery without angina pectoris; I25.2 Old myocardial infarction; G89.29 Other chronic pain; I27.20 Pulmonary hypertension, unspecified; M19.90 Unspecified osteoarthritis, unspecified site; I70.0 Atherosclerosis of aorta; I95.2 Hypotension due to drugs; K21.9 Gastro-esophageal reflux disease without esophagitis; K22.70 Barrett's esophagus without dysplasia; M47.816 Spondylosis without myelopathy or radiculopathy, lumbar region; T42.75XA Adverse effect of unspecified antiepileptic and sedative-hypnotic drugs, initial encounter; Z51.5 Encounter for palliative care; Z79.82 Long term (current) use of aspirin; Z82.49 Family history of ischemic heart disease and other diseases of the circulatory system; Z86.73 Personal history of transient ischemic attack (TIA), and cerebral infarction without residual deficits; Z99.81 Dependence on supplemental oxygen; Z95.5 Presence of coronary angioplasty implant and graft; Z87.01 Personal history of pneumonia (recurrent); Z88.8 Allergy status to other drugs, medicaments and biological substances
CPT/HCPCS: 31500; 36415; 36600; 51702; 70450; 71045; 72100; 72125; 74018; 80048; 80053; 80307; 81001; 82805; 83605; 83880; 84484; 85025; 85610; 85730; 87040; 87641; 93005; 93306; 94002; 94003; 94640; 94660; 94760; 94799; 96361; 96374; C9113; G0480; J0330; J1650; J2543; J2704; J3010; J7030; J7040; J7613; J7620; J7626; 99285-25; G0479